=== PATIENT | female | born 1930 | race African-American/Black ===

== ENCOUNTER 2016-05-17 17:23 | Inpatient (IN) | payer OTHER, BC ==
[2016-05-17] MEDS ORDERED: ACETAMINOPHEN 325 MG TABLET (FP) PO ONE (17:34)
--- NOTE | 2016-05-17 17:45 | PDOC ---
History of Present Illness - General History Source: Patient Exam Limitations: No Limitations - History of Present Illness Initial Comments: 05/17/16 18:10 The patient is a 85 year old pleasant female with a significant past medical history of Dementia, Vertigo, AFIB, HTN, HLD, GERD, Multiple myeloma, and Diabetes Mellitus, who presents to the ED with flu-like symptoms. Patient states she was feeling normal until this morning when she developed chest congestion, cough, and a fever. Patient was febrile on interview with a recorded temp of 102. Patient states she has a sick roommate ( at [facility]) with similar symptoms. Patient denies chest pain, chills, nausea, vomiting, diarrhea, hematochezia, dysuria, frequency. <Kareem Murphy - Last Filed: 05/17/16 18:34> <Sandy Jeffery - Last Filed: 05/18/16 10:10> - General Chief Complaint: SIRS, Suspected/Possible Stated Complaint: FEVER Time Seen by Provider: 05/17/16 17:44 Past History <Kareem Murphy - Last Filed: 05/17/16 18:34> - Past Medical History Anemia: No Asthma: No Cancer: Yes (THYROID, MULTIPLE MYELOMA) Cardiac Disorders: Yes (afib/DVT) CVA: No COPD: No CHF: No Dementia: No Diabetes: Yes (NIDDM) GI Disorders: No Disorders: No HTN: Yes Hypercholesterolemia: Yes Liver Disease: No Suicide Attempt (Hx): No Seizures: No Thyroid Disease: Yes (thyroid cancer, thyroidectomy done in 1999) - Surgical History Abdominal Surgery: Yes (exploratory lap) - Immunization History Immunization Up to Date: No - Psycho/Social/Smoking Cessation Hx Anxiety: No Suicidal Ideation: No Smoking Status: No Smoking History: Never smoked Have you smoked in the past 12 months: No Number of Cigarettes Smoked Daily: 0 If you are a former smoker, when did you quit?: 40 years ago Information on smoking cessation initiated: No Hx Alcohol Use: No Drug/Substance Use Hx: No Substance Use Type: None Hx Substance Use Treatment: No <Sandy Jeffery - Last Filed: 05/18/16 10:10> - Past Medical History Allergies/Adverse Reactions: Allergies Allergy/AdvReac Type Severity Reaction Status Date / Time No Known Allergies Allergy Verified 05/17/16 17:27 Home Medications: Ambulatory Orders Docusate Sodium [Dok] 300 mg PO HS 05/17/16 Furosemide [Lasix] 20 mg PO ASDIR 05/17/16 Gabapentin [Neurontin] 300 mg PO DAILY 05/17/16 Lenalidomide [Revlimid] 15 mg PO HS 05/17/16 Levothyroxine [Synthroid -] 100 mcg PO DAILY 05/17/16 Loratadine [Claritin] 10 mg PO DAILY 05/17/16 Meclizine HCl 25 mg PO Q8H 05/17/16 Mecobal/Levomefolat Ca/B6 Phos [Foltanx Tablet] 1 each PO DAILY 05/17/16 Omeprazole 40 mg PO DAILY 05/17/16 Potassium Chloride [Klor-Con] 20 meq PO DAILY 05/17/16 Sennosides [Senna] 8.6 mg PO HS 05/17/16 Tramadol HCl [Ultram] 50 mg PO DAILY 05/17/16 Valacyclovir HCl [Valtrex -] 500 mg PO DAILY 05/17/16 Warfarin Sodium [Coumadin] 4 mg PO DAILY 05/17/16 Review of Systems - Review of Systems Able to Perform ROS?: Yes Comments:: 05/17/16 18:10 GENERAL/CONSTITUTIONAL: + fever. No chills. No weakness. HEAD, EYES, EARS, NOSE AND THROAT: No change in vision. No ear pain or discharge. No sore throat. CARDIOVASCULAR: No chest pain or shortness of breath. RESPIRATORY: + cough. + chest congestion. No hemoptysis. GASTROINTESTINAL: No nausea, vomiting, diarrhea or constipation. GENITOURINARY: No dysuria, frequency, or change in urination. MUSCULOSKELETAL: No joint or muscle swelling or pain. No neck or back pain. SKIN: No rash NEUROLOGIC: No headache, vertigo, loss of consciousness, or change in strength/ sensation. ENDOCRINE: No increased thirst. No abnormal weight change. HEMATOLOGIC/LYMPHATIC: No anemia, easy bleeding, or history of blood clots. ALLERGIC/IMMUNOLOGIC: No hives or skin allergy. <Kareem Murphy - Last Filed: 05/17/16 18:34> *Physical Exam - Vital Signs Last Vital Signs Temp Pulse Resp BP Pulse Ox 102.3 F H 72 18 121/48 100 05/17/16 17:28 05/17/16 17:28 05/17/16 17:28 05/17/16 17:28 05/17/16 17:28 - Physical Exam Comments: 05/17/16 18:35 GENERAL: Awake, alert, and fully oriented, in no acute distress HEAD: No signs of trauma EYES: PERRLA, EOMI, sclera anicteric, conjunctiva clear ENT: Auricles normal inspection, hearing grossly normal, nares patent, oropharynx clear without exudates. Moist mucosa NECK: Normal ROM, supple, no lymphadenopathy, JVD, or masses LUNGS: Breath sounds equal, clear to auscultation bilaterally. No wheezes, and no crackles HEART: Regular rate and rhythm, normal S1 and S2, no murmurs, rubs or gallops ABDOMEN: Soft, nontender, normoactive bowel sounds. No guarding, no rebound. No masses EXTREMITIES: Normal range of motion, no edema. No clubbing or cyanosis. No cords, erythema, or tenderness NEUROLOGICAL: Cranial nerves II through XII grossly intact. Normal speech, normal gait SKIN: Warm, Dry, normal turgor, no rashes or lesions noted. <Kareem Murphy - Last Filed: 05/17/16 18:34> - Vital Signs Last Vital Signs Temp Pulse Resp BP Pulse Ox 102.3 F H 72 18 121/48 100 05/17/16 17:28 05/17/16 17:28 05/17/16 17:28 05/17/16 17:28 05/17/16 17:28 <Sandy Jeffery - Last Filed: 05/18/16 10:10> Heart Score/ECG Review - ECG Impressions Comment:: EKG read 18:29- NSR 68 bpm, no acute ST/T changes <Sandy Jeffery - Last Filed: 05/18/16 10:10> ED Treatment Course - LABORATORY CBC & Chemistry Diagram: 05/17/16 18:10 05/17/16 18:10 - Medications Given in the ED: ED Medications Discontinued Medications Generic Name Dose Route Start Last Admin Trade Name Freq PRN Reason Stop Dose Admin Acetaminophen 975 mg 05/17/16 17:34 05/17/16 17:34 Tylenol - PO 05/17/16 17:35 975 mg NOW ONE Administration <Kareem Murphy - Last Filed: 05/17/16 18:34> - LABORATORY CBC & Chemistry Diagram: 05/17/16 21:57 05/17/16 18:10 - RADIOLOGY Radiology Studies Ordered: Category Date Time Status CHEST X-RAY PORTABLE* [RAD] Stat Radiology 05/17/16 17:44 Ordered - Medications Given in the ED: ED Medications Discontinued Medications Generic Name Dose Route Start Last Admin Trade Name Terence PRN Reason Stop Dose Admin Acetaminophen 975 mg 05/17/16 17:34 05/17/16 17:34 Tylenol - PO 05/17/16 17:35 975 mg NOW ONE Administration <Sandy Jeffery - Last Filed: 05/18/16 10:10> Medical Decision Making - Medical Decision Making 05/17/16 19:[address] Galvez. Awaiting UA, CXR, flu swab to further evaluate for high fever. <Sandy Jeffery - Last Filed: 05/18/16 10:10> *DC/Admit/Observation/Transfer - Attestations Scribe Attestion: 05/17/16 18:11 Documentation prepared by Kareem Murphy, acting as medical record retrieval specialist for Sandy Jeffery MD, . <Kareem Murphy - Last Filed: 05/17/16 18:34> <Sandy Jeffery - Last Filed: 05/18/16 10:10> Diagnosis at time of Disposition: PNA (pneumonia) - Discharge Dispostion Condition at time of disposition: Stable - Referrals
[2016-05-17 18:20] LABS: BASOPHIL 1.1 % (0-2.0); MCH 30.1 pg (25.7-33.7); MEAN CELL VOLUME 91.1 fl (80-96); NEUTROPHILS 77.6 % (42.8-82.8); PLATELET COUNT 192 K/MM3 (134-434); RDW 17.5 % (11.6-15.6); WHITE BLOOD COUNT 4.4 K/mm3 (4.0-10.0)
[2016-05-17 18:21] LABS: VENOUS BLOOD GAS HCO3 22.3 meq/L (22-29); VENOUS PH 7.43 (7.31-7.41)
[2016-05-17 18:37] LABS: INR 1.7 (0.82-1.09); PROTHROMBIN TIME (PATIENT) 18.9 SEC (9.98-11.88)
[2016-05-17 18:40] LABS: ACTIVATED PTT 36.2 SECONDS (26.9-34.4)
[2016-05-17 18:48] LABS: ALBUMIN 2.7 g/dl (3.4-5.0); ANION GAP 9 (8-16); BILIRUBIN,TOTAL 0.5 mg/dL (0.2-1.0); CALCIUM 7.4 mg/dL (8.5-10.1); CO2 23 mmol/L (21-32); CREATININE 0.9 mg/dL (0.55-1.02); GLUCOSE,RANDOM 82 mg/dL (74-106); SGPT/ALT 45 U/L (12-78); TOT PROT 5.4 g/dl (6.4-8.2)
[2016-05-17 18:50] LABS: ALK PHOS 56 U/L (45-117); TROPONIN I 0.03 ng/ml (0.00-0.05)
[2016-05-17 18:52] LABS: SGOT/AST 59 U/L (15-37)
--- NOTE | 2016-05-17 21:43 | PDOC ---
*Physical Exam - Vital Signs Last Vital Signs Temp Pulse Resp BP Pulse Ox 102.3 F H 72 18 121/48 100 05/17/16 17:28 05/17/16 17:28 05/17/16 17:28 05/17/16 17:28 05/17/16 17:28 - Physical Exam General Appearance: Yes: Nourished, Appropriately Dressed. No: Apparent Distress HEENT: positive: Normal ENT Inspection Neck: positive: Supple Respiratory/Chest: positive: Decreased Breath Sounds (RT LOWER LOBE). negative : Chest Tender ED Treatment Course - LABORATORY CBC & Chemistry Diagram: 05/17/16 18:10 05/17/16 18:10 - ADDITIONAL ORDERS Additional order review: Laboratory Results 05/17/16 05/17/16 05/17/16 18:15 18:10 18:10 INR PTT (Actin FS) VBG pH 7.43 H POC VBG pCO2 34.0 L POC VBG pO2 45.4 H Sodium Potassium Chloride Carbon Dioxide Anion Gap BUN Creatinine Creat Clearance w eGFR Random Glucose Lactic Acid 0.667 Calcium Total Bilirubin AST ALT Alkaline Phosphatase Creatine Kinase CK-MB (CK-2) Troponin I Total Protein Albumin Blood Type Cancelled Antibody Screen Cancelled Spec Expiration Date Cancelled 05/17/16 05/17/16 18:10 18:10 INR 1.70 H PTT (Actin FS) 36.2 H VBG pH POC VBG pCO2 POC VBG pO2 Sodium 137 Potassium 4.0 Chloride 105 Carbon Dioxide 23 D Anion Gap 9 BUN 11 D Creatinine 0.9 Creat Clearance w eGFR 59.80 Random Glucose 82 Lactic Acid Calcium 7.4 L Total Bilirubin 0.5 AST 59 H D ALT 45 D Alkaline Phosphatase 56 D Creatine Kinase 201 H D CK-MB (CK-2) < 1.000 Troponin I 0.03 Total Protein 5.4 L Albumin 2.7 L Blood Type Antibody Screen Spec Expiration Date 05/17/16 18:10 RBC 3.53 L MCV 91.1 MCHC 33.0 RDW 17.5 H D MPV 8.0 Neutrophils % 77.6 D Lymphocytes % 7.1 L D Monocytes % 14.2 H Eosinophils % 0.0 D Basophils % 1.1 - Medications Given in the ED: ED Medications Discontinued Medications Generic Name Dose Route Start Last Admin Trade Name Freq PRN Reason Stop Dose Admin Acetaminophen 975 mg 05/17/16 17:34 05/17/16 17:34 Tylenol - PO 05/17/16 17:35 975 mg NOW ONE Administration Progress Note - Progress Note Progress Note: MY READ: RLL PNA ADMIT MEDICINE (DR. SALINAS) *DC/Admit/Observation/Transfer Diagnosis at time of Disposition: Pneumonia Qualifiers: Pneumonia type: due to unspecified organism Laterality: right Lung location: lower lobe of lung Qualified Code(s): J18.9 - Pneumonia, unspecified organism - Discharge Dispostion Condition at time of disposition: Stable Admit: Yes - Referrals Referrals: Alejandro Grimm MD [Primary Care Provider] - - Patient Instructions - Post Discharge Activity
[2016-05-17] MEDS ORDERED: CEFTRIAXONE 1 GM in DEXTROSE 5%-WATER - 50 ML IVPB ONE (21:44)
[2016-05-17] MEDS ORDERED: AZITHROMYCIN IVPB 500 MG in DEXTROSE 5%-WATER - 250 ML IVPB ONE (21:44)
[2016-05-17] MEDS ORDERED: MECLIZINE HCL 25 MG TABLET (FP) PO PRN (22:02)
[2016-05-17] MEDS ORDERED: ALBUTEROL SO4 2.5/IPRATROPIUM 0.5 INH SOL 3 ML VIAL.NEB. NEB PRN (22:02)
[2016-05-17] MEDS ORDERED: cefTRIAXone SODIUM 1 GM VIAL ONE (22:08)
[2016-05-17] MEDS ORDERED: AZITHROMYCIN IVPB 250 ML IVPB ONE (23:12)
[2016-05-18] MEDS: valACYclovir HCL 500 MG TABLET (FP) PO SCH ×3 (00:33→12:30)
[2016-05-18] MEDS: GABAPENTIN 100 MG CAPSULE (FP) PO SCH ×4 (00:34→21:11)
[2016-05-18] MEDS ORDERED: GABAPENTIN 100 MG CAPSULE (FP) ONE (08:22)
[2016-05-18] MEDS ORDERED: LEVOTHYROXINE NA 25 MCG TABLET (FP) ONE (08:22)
[2016-05-18] MEDS: LEVOTHYROXINE NA 100 MCG TABLET (FP) PO SCH (08:25)
[2016-05-18 08:31] LABS: MCH 30.3 pg (25.7-33.7); MCHC 33.4 g/dl (32.0-36.0); MEAN CELL VOLUME 90.6 fl (80-96); MEAN PLT VOLUME 7.8 fl (7.5-11.1); PLATELET COUNT 182 K/MM3 (134-434); RDW 17.4 % (11.6-15.6); WHITE BLOOD COUNT 3.6 K/mm3 (4.0-10.0)
[2016-05-18] MEDS ORDERED: POTASSIUM CHLORIDE TABS 10 MEQ TABLET.ER (FP) ONE (08:49)
[2016-05-18] MEDS ORDERED: PANTOPRAZOLE 40 MG TABLET (FP) ONE (08:49)
[2016-05-18] MEDS ORDERED: FUROSEMIDE 40 MG TABLET (FP) ONE (08:49)
[2016-05-18] MEDS ORDERED: ACETAMINOPHEN 325 MG TABLET (FP) ONE (08:49)
[2016-05-18] MEDS ORDERED: LORATADINE 10 MG TABLET ONE (08:50)
[2016-05-18 08:56] LABS: ALBUMIN 2.5 g/dl (3.4-5.0); ALK PHOS 57 U/L (45-117); ANION GAP 9 (8-16); BILIRUBIN,TOTAL 0.5 mg/dL (0.2-1.0); CALCIUM 7.4 mg/dL (8.5-10.1); CO2 24 mmol/L (21-32); CREATININE 0.8 mg/dL (0.55-1.02); GLUCOSE,RANDOM 72 mg/dL (74-106); SGPT/ALT 46 U/L (12-78); TOT PROT 5.2 g/dl (6.4-8.2)
[2016-05-18 09:02] LABS: SGOT/AST 56 U/L (15-37)
[2016-05-18] MEDS: PANTOPRAZOLE 40 MG TABLET (FP) PO SCH (09:05)
[2016-05-18] MEDS: ACETAMINOPHEN 325 MG TABLET (FP) PO PRN ×2 (09:05→19:01)
[2016-05-18] MEDS: POTASSIUM CHLORIDE TABS 10 MEQ TABLET.ER (FP) PO SCH (09:05)
[2016-05-18] MEDS: LORATADINE 10 MG TABLET PO SCH (09:05)
[2016-05-18] MEDS: FUROSEMIDE 40 MG TABLET (FP) PO SCH (09:05)
--- NOTE | 2016-05-18 10:53 | PN ---
Progress Note (short form) - Note Progress Note: ID consult dictated imp/reccd fever in immunocompromised host RLL pneumonia multiple myeloma continue rocephin/zithromax f/u cultures legionella urinary antigen
--- NOTE | 2016-05-18 11:18 | HP ---
Admitting History and Physical - Primary Care Physician PCP: Tacos Rowe - Admission History of Present Illness: The patient is a 85 year old pleasant female with a significant past medical history of Dementia, Vertigo, AFIB, HTN, HLD, GERD, Multiple myeloma, and Diabetes Mellitus, who presents to the ED with flu-like symptoms. Patient states she was feeling normal until this morning when she developed chest congestion, cough, and a fever. Patient was febrile on interview with a recorded temp of 102. Patient states she has a sick roommate ( at [facility] for [facility]) with similar symptoms. Patient denies chest pain, chills, nausea, vomiting, diarrhea, hematochezia, dysuria, frequency. 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: Dementia, Vertigo Cardiovascular: Yes: AFIB, HTN, Hyperlipdemia Gastrointestinal: Yes: GERD Heme/Onc: Yes: Other (Multiple myeloma) Endocrine: Yes: Diabetes Mellitus - Past Surgical History Past Surgical History: Yes: None (no significant history) - Smoking History Smoking history: Never smoked Have you smoked in the past 12 months: No Aproximately how many cigarettes per day: 0 If you are a former smoker, when did you quit?: 40 years ago - Alcohol/Substance Use Hx Alcohol Use: No History of Substance Use: reports: None - Social History History of Recent Travel: No Home Medications - Allergies Allergies/Adverse Reactions: Allergies Allergy/AdvReac Type Severity Reaction Status Date / Time No Known Allergies Allergy Verified 05/17/16 17:27 - Home Medications Home Medications: Ambulatory Orders Docusate Sodium [Dok] 300 mg PO HS 05/17/16 Furosemide [Lasix] 20 mg PO ASDIR 05/17/16 Gabapentin [Neurontin] 300 mg PO DAILY 05/17/16 Lenalidomide [Revlimid] 15 mg PO HS 05/17/16 Levothyroxine [Synthroid -] 100 mcg PO DAILY 05/17/16 Loratadine [Claritin] 10 mg PO DAILY 05/17/16 Meclizine HCl 25 mg PO Q8H 05/17/16 Mecobal/Levomefolat Ca/B6 Phos [Foltanx Tablet] 1 each PO DAILY 05/17/16 Omeprazole 40 mg PO DAILY 05/17/16 Potassium Chloride [Klor-Con] 20 meq PO DAILY 05/17/16 Sennosides [Senna] 8.6 mg PO HS 05/17/16 Tramadol HCl [Ultram] 50 mg PO DAILY 05/17/16 Valacyclovir HCl [Valtrex -] 500 mg PO DAILY 05/17/16 Warfarin Sodium [Coumadin] 4 mg PO DAILY 05/17/16 Review of Systems - Review of Systems Constitutional: reports: Fever Physical Examination Vital Signs: Vital Signs Temperature 101.1 F H 05/18/16 06:00 Pulse Rate 76 05/18/16 06:00 Respiratory Rate 20 05/18/16 06:00 Blood Pressure 146/61 05/18/16 06:00 O2 Sat by Pulse Oximetry (%) 99 05/18/16 06:00 Constitutional: Yes: Calm Neck: Yes: Trachea Midline Cardiovascular: Yes: Regular Rate and Rhythm, S1, S2 Respiratory: Yes: Diminished (on right side) Imaging - Results Chest X-ray: Report Reviewed (right rhett infiltrate) Problem List - Problems (1) Fever Assessment/Plan: sec to pna iv abx ID eval Code(s): R50.9 - FEVER, UNSPECIFIED (2) PNA (pneumonia) Assessment/Plan: ID eval iv abx rocephin ,zithromax Code(s): J18.9 - PNEUMONIA, UNSPECIFIED ORGANISM Qualifiers: Pneumonia type: due to unspecified organism Laterality: right Lung location: lower lobe of lung Qualified Code(s): J18.9 - Pneumonia, unspecified organism (3) DM2 (diabetes mellitus, type 2) Assessment/Plan: check hga1c Code(s): E11.9 - TYPE 2 DIABETES MELLITUS WITHOUT COMPLICATIONS (4) Multiple myeloma Assessment/Plan: heme eval vatlrex revlamid Code(s): C90.00 - MULTIPLE MYELOMA NOT HAVING ACHIEVED REMISSION (5) Hypothyroidism Assessment/Plan: synthroid check tsh Code(s): E03.9 - HYPOTHYROIDISM, UNSPECIFIED (6) Afib Assessment/Plan: couamdin taken of AV sabina blocade by cardio Code(s): I48.91 - UNSPECIFIED ATRIAL FIBRILLATION (7) Vertigo Assessment/Plan: meclizine prn Code(s): R42 - DIZZINESS AND GIDDINESS
[2016-05-18] MEDS: cefTRIAXone 2 GM/100 ML BAG (PRE-DOCKED) IVPB SCH (12:20)
--- NOTE | 2016-05-18 12:52 | EKG ---
Test Reason : Blood Pressure : / mmHG Vent. Rate : 068 BPM Atrial Rate : 068 BPM P-R Int : 122 ms QRS Dur : 088 ms QT Int : 412 ms P-R-T Axes : 059 029 060 degrees QTc Int : 438 ms NORMAL SINUS RHYTHM POSSIBLE LEFT ATRIAL ENLARGEMENT BORDERLINE ECG WHEN COMPARED WITH ECG OF 06-FEB-2016 08:31, NO SIGNIFICANT CHANGE WAS FOUND Confirmed by FAN JARAMILLO MD ([id number]) on 05/18/2016 12:52:07 PM Referred By: Confirmed By:FAN JARAMILLO MD
[2016-05-18 13:44] LABS: URINE APPEARANCE CLEAR; URINE BILIRUBIN NEGATIVE (NEGATIVE); URINE COLOR STRAW; URINE GLUCOSE (UA) NEGATIVE (NEGATIVE); URINE KETONE NEGATIVE (NEGATIVE); URINE LEUK ESTERASE NEGATIVE (NEGATIVE); URINE NITRITE NEGATIVE (NEGATIVE); URINE PROTEIN NEGATIVE (NEGATIVE); URINE UROBILINOGEN NEGATIVE E.U./dl (0.2-1.0)
[2016-05-18 13:48] LABS: URINE BLOOD 1+ (NEGATIVE)
[2016-05-18 13:50] LABS: URINE MUCUS RARE; URINE RBC 1 /hpf (0-3); URINE WBC <1 /hpf (3-5)
--- NOTE | 2016-05-18 16:05 | CONSULT ---
Consult Consult Specialty:: PULM/CCM Referred by:: TIAGO Reason for Consultation:: PNA - History of Present Illness Chief Complaint: SOB / cough History of Present Illness: 85 F, Dementia, Vertigo, AFIB, HTN, HPL, GERD, Multiple Myeloma, (?) History of VTE, and DM. Admitted via the ER due to URI symptoms for about 1 day. Noted fever 102. Patient reports a possible sick contact from her roommate at the assisted living facility. No travel history. No hemoptysis. CT : right mid lung zone infiltrate/consolidation / small effusion. 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: Dementia, Vertigo Cardio/Vascular: Yes: AFIB, HTN, Hyperlipdemia Gastrointestinal: Yes: GERD Endocrine: Yes: Diabetes Mellitus - Past Surgical History Past Surgical History: Yes: None (no significant history) - Alcohol/Substance Use Hx Alcohol Use: No History of Substance Use: reports: None - Smoking History Smoking history: Never smoked Have you smoked in the past 12 months: No Aproximately how many cigarettes per day: 0 If you are a former smoker, when did you quit?: 40 years ago - Social History History of Recent Travel: No Home Medications - Allergies Allergies/Adverse Reactions: Allergies Allergy/AdvReac Type Severity Reaction Status Date / Time No Known Allergies Allergy Verified 05/17/16 17:27 - Home Medications Home Medications: Ambulatory Orders Docusate Sodium [Dok] 300 mg PO HS 05/17/16 Furosemide [Lasix] 20 mg PO ASDIR 05/17/16 Gabapentin [Neurontin] 300 mg PO DAILY 05/17/16 Lenalidomide [Revlimid] 15 mg PO HS 05/17/16 Levothyroxine [Synthroid -] 100 mcg PO DAILY 05/17/16 Loratadine [Claritin] 10 mg PO DAILY 05/17/16 Meclizine HCl 25 mg PO Q8H 05/17/16 Mecobal/Levomefolat Ca/B6 Phos [Foltanx Tablet] 1 each PO DAILY 05/17/16 Omeprazole 40 mg PO DAILY 05/17/16 Potassium Chloride [Klor-Con] 20 meq PO DAILY 05/17/16 Sennosides [Senna] 8.6 mg PO HS 05/17/16 Tramadol HCl [Ultram] 50 mg PO DAILY 05/17/16 Valacyclovir HCl [Valtrex -] 500 mg PO DAILY 05/17/16 Warfarin Sodium [Coumadin] 4 mg PO DAILY 05/17/16 Review of Systems - Review of Systems Constitutional: reports: Fever, Lethargy, Malaise, Weakness. denies: Chills, Night Sweats Eyes: reports: No Symptoms HENT: reports: No Symptoms Neck: reports: No Symptoms Cardiovascular: reports: Shortness of Breath. denies: Chest Pain, Edema, Palpitations Respiratory: reports: Cough. denies: Hemoptysis, SOB, Wheezing Gastrointestinal: reports: No Symptoms Genitourinary: reports: No Symptoms Breasts: reports: No Symptoms Reported Musculoskeletal: reports: No Symptoms Integumentary: reports: No Symptoms Neurological: reports: No Symptoms Endocrine: reports: No Symptoms Hematology/Lymphatic: reports: No Symptoms Psychiatric: reports: No Symptoms Physical Exam Vital Signs: Vital Signs Temperature 98.2 F 05/18/16 13:58 Pulse Rate 61 05/18/16 13:58 Respiratory Rate 19 05/18/16 13:58 Blood Pressure 125/60 05/18/16 13:58 O2 Sat by Pulse Oximetry (%) 96 05/18/16 13:58 Constitutional: Yes: No Distress, Calm Eyes: Yes: Conjunctiva Clear, EOM Intact HENT: Yes: Atraumatic, Normocephalic Neck: Yes: Supple, Trachea Midline Cardiovascular: Yes: Regular Rate and Rhythm Respiratory: Yes: Cough, On Nasal O2, Rhonchi, SOB. No: Stridor, Tachypnea, Wheezes Gastrointestinal: Yes: Normal Bowel Sounds, Soft ...Rectal Exam: Yes: Deferred Musculoskeletal: Yes: WNL Extremities: Yes: WNL Edema: No Peripheral Pulses WNL: Yes Integumentary: Yes: WNL Neurological: Yes: Alert, Oriented ...Motor Strength: WNL Psychiatric: Yes: WNL, Alert, Oriented Imaging - Results Chest X-ray: Report Reviewed, Image Reviewed Cat Scan: Report Reviewed, Image Reviewed Problem List - Problems (1) PNA (pneumonia) Code(s): J18.9 - PNEUMONIA, UNSPECIFIED ORGANISM Qualifiers: Pneumonia type: due to unspecified organism Laterality: right Lung location: lower lobe of lung Qualified Code(s): J18.9 - Pneumonia, unspecified organism (2) Afib Code(s): I48.91 - UNSPECIFIED ATRIAL FIBRILLATION (3) Atypical chest pain Code(s): R07.89 - OTHER CHEST PAIN (4) Fever Code(s): R50.9 - FEVER, UNSPECIFIED (5) HTN (hypertension) Code(s): I10 - ESSENTIAL (PRIMARY) HYPERTENSION (6) Hypothyroidism Code(s): E03.9 - HYPOTHYROIDISM, UNSPECIFIED (7) Multiple myeloma Code(s): C90.00 - MULTIPLE MYELOMA NOT HAVING ACHIEVED REMISSION (8) Thyroid cancer Code(s): C73 - MALIGNANT NEOPLASM OF THYROID GLAND (9) Vertigo Code(s): R42 - DIZZINESS AND GIDDINESS (10) Deep vein thrombosis Code(s): I82.409 - ACUTE EMBOLISM AND THOMBOS UNSP DEEP VN UNSP LOWER EXTREMITY Assessment/Plan PLAN: ABX per ID O2 as needed Check urine Check Sputum AC with coumadin Radiographic follow up as an outpatient suggested by Radiology Will follow Thank you. Dr Ohara
--- NOTE | 2016-05-18 17:32 | CONS ---
DATE OF CONSULTATION: DATE OF DICTATION: 05/18/2016 REQUESTING PHYSICIAN: Johann Wadsworth M.D. CONSULTING PHYSICIAN: Marya Ray M.D. HISTORY OF PRESENT ILLNESS: This is an 85-year-old woman with a history of multiple myeloma. She lives in an assisted living center at [facility]. She reports she was well until this morning, when she developed sudden onset of myalgia and low grade fever. This was yesterday. She saw the doctor at the alf. She had a temperature of 100.8. She went back. She ate lunch. She then went to bed, felt extremely weak and tired, very unlike herself, at which point she spoke to her daughter, they called an ambulance, and she came to the hospital. She was found to have a fever in the emergency room of 102. She has had a recent sick roommate who she says had a cough and sore throat. The patient had no chest pain. She has extreme malaise. She has had no chills, she has had no rigors, there has been no nausea, vomiting, diarrhea, dysuria, or urinary frequency. There has been no recent travel. PAST MEDICAL HISTORY: Notable for thyroid disease, multiple myeloma, atrial fibrillation with DVT in the past. She has a history of non-insulin dependent diabetes, hypertension, hypercholesterolemia. She has had thyroid cancer in the past. SURGICAL HISTORY: Notable for exploratory laparotomy and thyroidectomy done in 1999. FAMILY HISTORY: Noncontributory. ALLERGIES: No known drug allergies. MEDICATION: As an outpatient include Colace, Lasix, Neurontin, Revlimid which he is currently not taking. She takes it 21 days on and 7 days off and currently she is on the 7 days off. Levothyroxine, Claritin, meclizine, tablet, omeprazole, potassium, senna, Ultram, Valtrex, and Coumadin. SOCIAL HISTORY: She has been in the assisted living for the last month and enjoys staying there. 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 There is no history of any cigarette or substance use. REVIEW OF SYSTEMS: Notable for fever and generalized malaise. She is followed by Dr. Marie for her multiple myeloma, which she says was diagnosed about 4 years ago. PHYSICAL EXAMINATION: Vital signs: T-max 102.3, current temperature is 101.1, pulse 66, blood pressure 110/49, respiratory rate 19. She is saturating 96% on room air. HEENT: Normocephalic. Eyes are anicteric. Neck: Supple. Lungs: Diminished breath sounds in both bases. Heart: Regular rate and rhythm. Abdomen: Soft, nontender. She has no CVA or suprapubic tenderness. She has no rash. Extremities: Without edema. LABORATORY: White count is 3.6, hemoglobin 10.8, platelets 182, INR 1.7. BUN and creatinine are 11 and 0.9 with AST of 59. Cultures are pending and influenza screen is negative. Chest x-ray is read as an early right lower lobe infiltrate. IMPRESSION: In summary, this is an 85-year-old woman with fever in the setting of immunocompromised host secondary to myeloma who has evidence of a probable right lower lobe infiltrate. Would continue Rocephin and Zithromax at this time. Chest CT has been ordered and would follow up on chest CT for further evaluation. Will check legionella urinary antigen as well. Further recommendations to follow. Vickie [id number]
[2016-05-18 18:56] VITALS: BMI 18.0
[2016-05-18] MEDS: WARFARIN NA 3 MG TABLET PO SCH (19:01)
[2016-05-18] MEDS: AZITHROMYCIN IVPB 250 ML IVPB SCH (21:11)
--- NOTE | 2016-05-18 23:25 | CONSULT ---
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, Vertigo Cardio/Vascular: Yes: AFIB, HTN, Hyperlipdemia Gastrointestinal: Yes: GERD Endocrine: Yes: Diabetes Mellitus - Past Surgical History Past Surgical History: Yes: None (no significant history) - Alcohol/Substance Use Hx Alcohol Use: No History of Substance Use: reports: None - Smoking History Smoking history: Never smoked Have you smoked in the past 12 months: No Aproximately how many cigarettes per day: 0 If you are a former smoker, when did you quit?: 40 years ago - Social History History of Recent Travel: No Home Medications - Allergies Allergies/Adverse Reactions: Allergies Allergy/AdvReac Type Severity Reaction Status Date / Time No Known Allergies Allergy Verified 05/17/16 17:27 - Home Medications Home Medications: Ambulatory Orders Docusate Sodium [Dok] 300 mg PO HS 05/17/16 Furosemide [Lasix] 20 mg PO ASDIR 05/17/16 Gabapentin [Neurontin] 300 mg PO DAILY 05/17/16 Lenalidomide [Revlimid] 15 mg PO HS 05/17/16 Levothyroxine [Synthroid -] 100 mcg PO DAILY 05/17/16 Loratadine [Claritin] 10 mg PO DAILY 05/17/16 Meclizine HCl 25 mg PO Q8H 05/17/16 Mecobal/Levomefolat Ca/B6 Phos [Foltanx Tablet] 1 each PO DAILY 05/17/16 Omeprazole 40 mg PO DAILY 05/17/16 Potassium Chloride [Klor-Con] 20 meq PO DAILY 05/17/16 Sennosides [Senna] 8.6 mg PO HS 05/17/16 Tramadol HCl [Ultram] 50 mg PO DAILY 05/17/16 Valacyclovir HCl [Valtrex -] 500 mg PO DAILY 05/17/16 Warfarin Sodium [Coumadin] 4 mg PO DAILY 05/17/16 Review of Systems - Review of Systems Constitutional: reports: Lethargy Eyes: reports: No Symptoms HENT: reports: No Symptoms Neck: reports: No Symptoms Cardiovascular: reports: No Symptoms Respiratory: reports: Exercise Intolerance, SOB on Exertion Gastrointestinal: reports: No Symptoms Breasts: reports: No Symptoms Reported Musculoskeletal: reports: Muscle Weakness Neurological: reports: Dizziness, Incoordination Physical Exam Vital Signs: Vital Signs Temperature 99.5 F 05/18/16 20:36 Pulse Rate 70 05/18/16 20:36 Respiratory Rate 18 05/18/16 20:36 Blood Pressure 94/51 05/18/16 20:36 O2 Sat by Pulse Oximetry (%) 96 05/18/16 16:19 Constitutional: Yes: Calm Eyes: Yes: EOM Intact HENT: Yes: Normocephalic Neck: Yes: Trachea Midline Cardiovascular: Yes: Regular Rate and Rhythm Respiratory: Yes: CTA Bilaterally Gastrointestinal: Yes: Normal Bowel Sounds ...Rectal Exam: Yes: Deferred Renal/: Yes: WNL Breast(s): Yes: WNL Musculoskeletal: Yes: Joint Stiffness, Muscle Pain Extremities: Yes: WNL Edema: No Neurological: Yes: Alert, Oriented Problem List - Problems (1) Atypical chest pain Code(s): R07.89 - OTHER CHEST PAIN Assessment/Plan Current Active Problems hypothyroidism post tot thyroidectomy sp thyroid neoplasm\ multiple mylemo anemia PNA (pneumonia) (Acute) Abnormal Lab Results 05/17/16 05/17/16 05/17/16 08:30 18:10 21:57 WBC 3.6 L RBC 3.58 L RDW 17.4 H Chloride 108 H Random Glucose 72 L Calcium 7.4 L 7.4 L AST 56 H D 59 H Creatine Kinase 201 H D Total Protein 5.2 L 5.4 L Albumin 2.5 L 2.7 L Urine Blood 05/18/16 13:30 WBC RBC RDW Chloride Random Glucose Calcium AST Creatine Kinase Total Protein Albumin Urine Blood 1+ H Abnormal Lab Results 05/17/16 05/17/16 05/17/16 08:30 18:10 21:57 WBC 3.6 L RBC 3.58 L RDW 17.4 H Chloride 108 H Random Glucose 72 L Calcium 7.4 L 7.4 L AST 56 H D 59 H Creatine Kinase 201 H D Total Protein 5.2 L 5.4 L Albumin 2.5 L 2.7 L Urine Blood 05/18/16 13:30 WBC RBC RDW Chloride Random Glucose Calcium AST Creatine Kinase Total Protein Albumin Urine Blood 1+ H Laboratory Tests 02/07/16 09:50 TSH 2.08 D Free T4 1.18 Current Medications Generic Name Dose Route Start Last Admin Trade Name Freq PRN Reason Stop Dose Admin Acetaminophen 650 mg 05/17/16 22:02 05/18/16 19:01 Tylenol - PO 650 mg Q6H PRN Administration FEVER OR PAIN Albuterol/Ipratropium 1 amp 05/17/16 22:02 Duoneb - NEB Q6H PRN SHORTNESS OF BREATH Ceftriaxone Sodium 2 gm 05/18/16 11:00 05/18/16 12:20 Rocephin 2gm Ivpb (Pre-Docked) IVPB 2 gm DAILY G[facility] Administration Furosemide 40 mg 05/18/16 10:00 05/18/16 09:05 Lasix - PO 40 mg DAILY GIRISH Administration Gabapentin 100 mg 05/18/16 06:00 05/18/16 21:11 Neurontin - PO 100 mg TID GIRISH Administration Azithromycin 250 mls @ 250 mls/hr 05/18/16 20:00 05/18/16 21:11 Zithromax 500mg Ivpb (Pre-Docked) IVPB 250 mls/hr DAILY G[facility] Administration Levothyroxine Sodium 100 mcg 05/18/16 07:00 05/18/16 08:25 Synthroid - PO 100 mcg DAILY@0700 G[facility] Administration Loratadine 10 mg 05/18/16 10:00 05/18/16 09:05 Claritin - PO 10 mg DAILY G[facility] Administration Meclizine HCl 25 mg 05/17/16 22:02 Antivert - PO TID PRN VERTIGO Pantoprazole Sodium 40 mg 05/18/16 10:00 05/18/16 09:05 Protonix - PO 40 mg DAILY GIR[facility] Administration Potassium Chloride 10 meq 05/18/16 10:00 05/18/16 09:05 K-Dur - PO 10 meq DAILY GIRISH Administration Valacyclovir HCl 500 mg 05/17/16 23:00 05/18/16 12:30 Valtrex - PO 500 mg DAILY G[facility] Administration Warfarin Sodium 6 mg 05/18/16 18:00 05/18/16 19:01 Coumadin - PO 6 mg DAILY@1800 G[facility] Administration continue synthroid 100mcg daily will follow tsh and free t4
[2016-05-19] MEDS: ACETAMINOPHEN 325 MG TABLET (FP) PO PRN (06:23)
[2016-05-19] MEDS: GABAPENTIN 100 MG CAPSULE (FP) PO SCH ×3 (06:23→21:20)
[2016-05-19] MEDS: LEVOTHYROXINE NA 100 MCG TABLET (FP) PO SCH (06:23)
[2016-05-19 09:10] LABS: MCH 30.6 pg (25.7-33.7); MCHC 33.4 g/dl (32.0-36.0); MEAN CELL VOLUME 91.5 fl (80-96); PLATELET COUNT 205 K/MM3 (134-434); RDW 17.2 % (11.6-15.6); WHITE BLOOD COUNT 3.2 K/mm3 (4.0-10.0)
[2016-05-19 09:29] LABS: INR 1.72 (0.82-1.09); PROTHROMBIN TIME (PATIENT) 19.1 SEC (9.98-11.88)
[2016-05-19 09:43] LABS: ALBUMIN 2.8 g/dl (3.4-5.0); BILIRUBIN,TOTAL 0.4 mg/dL (0.2-1.0); CALCIUM 7.8 mg/dL (8.5-10.1); TOT PROT 5.9 g/dl (6.4-8.2)
--- NOTE | 2016-05-19 09:45 | PN ---
Progress Note, Physician - Current Medication List Current Medications: Active Medications Acetaminophen (Tylenol -) 650 mg PO Q6H PRN PRN Reason: FEVER OR PAIN Last Admin: 05/19/16 06:23 Dose: 650 mg Albuterol/Ipratropium (Duoneb -) 1 amp NEB Q6H PRN PRN Reason: SHORTNESS OF BREATH Ceftriaxone Sodium (Rocephin 2gm Ivpb (Pre-Docked)) 2 gm IVPB DAILY [facility] Last Admin: 05/18/16 12:20 Dose: 2 gm Furosemide (Lasix -) 40 mg PO DAILY [facility] Last Admin: 05/18/16 09:05 Dose: 40 mg Gabapentin (Neurontin -) 100 mg PO TID [facility] Last Admin: 05/19/16 06:23 Dose: 100 mg Azithromycin (Zithromax 500mg Ivpb (Pre-Docked)) 250 mls @ 250 mls/hr IVPB DAILY [facility] Last Admin: 05/18/16 21:11 Dose: 250 mls/hr Levothyroxine Sodium (Synthroid -) 100 mcg PO DAILY@0700 [facility] Last Admin: 05/19/16 06:23 Dose: 100 mcg Loratadine (Claritin -) 10 mg PO DAILY [facility] Last Admin: 05/18/16 09:05 Dose: 10 mg Meclizine HCl (Antivert -) 25 mg PO TID PRN PRN Reason: VERTIGO Pantoprazole Sodium (Protonix -) 40 mg PO DAILY [facility] Last Admin: 05/18/16 09:05 Dose: 40 mg Potassium Chloride (K-Dur -) 10 meq PO DAILY [facility] Last Admin: 05/18/16 09:05 Dose: 10 meq Valacyclovir HCl (Valtrex -) 500 mg PO DAILY [facility] Last Admin: 05/18/16 12:30 Dose: 500 mg Warfarin Sodium (Coumadin -) 6 mg PO DAILY@1800 [facility] Last Admin: 05/18/16 19:01 Dose: 6 mg - Objective Vital Signs: Vital Signs Temperature 100.5 F H 05/19/16 06:00 Pulse Rate 71 05/19/16 06:00 Respiratory Rate 18 05/19/16 06:00 Blood Pressure 120/59 05/19/16 06:00 O2 Sat by Pulse Oximetry (%) 96 05/18/16 22:00 Cardiovascular: Yes: Regular Rate and Rhythm Respiratory: Yes: Diminished, Rhonchi Gastrointestinal: Yes: Normal Bowel Sounds, Soft Labs: CBC, BMP 05/19/16 07:35 INR, PTT INR 1.72 (0.82-1.09) H 05/19/16 07:35 Assessment/Plan - Problems (1) Fever Assessment/Plan: 100.5 sec to pna iv abx ID eval Code(s): R50.9 - FEVER, UNSPECIFIED (2) PNA (pneumonia) Assessment/Plan: ID eval iv abx rocephin ,zithromax ct noted--soft tissue density--oncology Code(s): J18.9 - PNEUMONIA, UNSPECIFIED ORGANISM Qualifiers: Pneumonia type: due to unspecified organism Laterality: right Lung location: lower lobe of lung Qualified Code(s): J18.9 - Pneumonia, unspecified organism (3) DM2 (diabetes mellitus, type 2) Assessment/Plan: check hga1c Code(s): E11.9 - TYPE 2 DIABETES MELLITUS WITHOUT COMPLICATIONS (4) Multiple myeloma Assessment/Plan: heme eval vatlrex revlamid to start in am Code(s): C90.00 - MULTIPLE MYELOMA NOT HAVING ACHIEVED REMISSION (5) Hypothyroidism Assessment/Plan: synthroid check tsh Code(s): E03.9 - HYPOTHYROIDISM, UNSPECIFIED (6) Afib Assessment/Plan: couamdin taken of AV sabina blocade by cardio Code(s): I48.91 - UNSPECIFIED ATRIAL FIBRILLATION (7) Vertigo Assessment/Plan: meclizine prn Code(s): R42 - DIZZINESS AND GIDDINESS
[2016-05-19 09:53] LABS: CHOLESTEROL 240 mg/dL (50-200); LDL CHOLESTEROL (ONLY SJRH) 132 mg/dL (5-100)
[2016-05-19] MEDS ORDERED: PT OWN MED DRAWER 7, Y5N ONE (10:11)
[2016-05-19] MEDS: AZITHROMYCIN IVPB 250 ML IVPB SCH (10:22)
[2016-05-19] MEDS: PANTOPRAZOLE 40 MG TABLET (FP) PO SCH (10:23)
[2016-05-19] MEDS: valACYclovir HCL 500 MG TABLET (FP) PO SCH (10:23)
[2016-05-19] MEDS: FUROSEMIDE 40 MG TABLET (FP) PO SCH (10:23)
[2016-05-19] MEDS: cefTRIAXone 2 GM/100 ML BAG (PRE-DOCKED) IVPB SCH (10:23)
[2016-05-19] MEDS: LORATADINE 10 MG TABLET PO SCH (10:23)
[2016-05-19] MEDS: POTASSIUM CHLORIDE TABS 10 MEQ TABLET.ER (FP) PO SCH (10:23)
--- NOTE | 2016-05-19 14:31 | PN ---
Progress Note (short form) - Note Progress Note: feels better no complaints Vital Signs Period Temp Pulse Resp BP Sys/Ferrer Pulse Ox Last 24 Hr 98.2 F-100.5 F 60-74 18-19 94-124/48-62 96-96 cor-rrr lungs clear abd soft,nt ext no edema CBC, BMP 05/19/16 07:35 05/19/16 07:35 Microbiology 05/17/16 18:10 Blood - Peripheral Venous Blood Culture - Preliminary NO GROWTH OBTAINED AFTER 24 HOURS, INCUBATION TO CONTINUE FOR 4 DAYS. 05/17/16 18:10 Blood - Peripheral Venous Blood Culture - Preliminary NO GROWTH OBTAINED AFTER 24 HOURS, INCUBATION TO CONTINUE FOR 4 DAYS. 05/18/16 13:30 Urine For Antigen Detection Legionella Antigen - Final 05/18/16 13:30 Urine For Antigen Detection Streptococcus pneumoniae Antigen (M - Final 05/17/16 22:00 Nasopharyngeal Swab Influenza Types A,B Antigen (GAETANO) - Final 05/17/16 22:00 Nasopharyngeal Swab - Final chest ct- RML infil Current Medications Acetaminophen (Tylenol -) 650 mg PO Q6H PRN PRN Reason: FEVER OR PAIN Last Admin: 05/19/16 06:23 Dose: 650 mg Albuterol/Ipratropium (Duoneb -) 1 amp NEB Q6H PRN PRN Reason: SHORTNESS OF BREATH Ceftriaxone Sodium (Rocephin 2gm Ivpb (Pre-Docked)) 2 gm IVPB DAILY [facility] Last Admin: 05/19/16 10:23 Dose: 2 gm Furosemide (Lasix -) 40 mg PO DAILY [facility] Last Admin: 05/19/16 10:23 Dose: 40 mg Gabapentin (Neurontin -) 100 mg PO TID [facility] Last Admin: 05/19/16 06:23 Dose: 100 mg Azithromycin (Zithromax 500mg Ivpb (Pre-Docked)) 250 mls @ 250 mls/hr IVPB DAILY [facility] Last Admin: 05/19/16 10:22 Dose: 250 mls/hr Levothyroxine Sodium (Synthroid -) 100 mcg PO DAILY@0700 [facility] Last Admin: 05/19/16 06:23 Dose: 100 mcg Loratadine (Claritin -) 10 mg PO DAILY [facility] Last Admin: 05/19/16 10:23 Dose: 10 mg Meclizine HCl (Antivert -) 25 mg PO TID PRN PRN Reason: VERTIGO Pantoprazole Sodium (Protonix -) 40 mg PO DAILY [facility] Last Admin: 05/19/16 10:23 Dose: 40 mg Potassium Chloride (K-Dur -) 10 meq PO DAILY [facility] Last Admin: 05/19/16 10:23 Dose: 10 meq Valacyclovir HCl (Valtrex -) 500 mg PO DAILY [facility] Last Admin: 05/19/16 10:23 Dose: 500 mg Warfarin Sodium (Coumadin -) 6 mg PO DAILY@1800 [facility] Last Admin: 05/18/16 19:01 Dose: 6 mg a/p CAP-RML infiltrate temps trending down continue rocephin/zithromax Multiple Myelomma
--- NOTE | 2016-05-19 15:47 | PN ---
Progress Note (short form) - Note Progress Note: PULMONARY AWAKE/ALERT FEELS IMPROVED APPEARS CHRONICALLY ILL VSS/AFEBRILE ANICTERIC DIMINISHED BREATH SOUNDS B/L S1S2 IRREG BS+ SOFT NO EDEMA LABS/CT CHEST/MICRO/NOTES/MEDS REVIEWED (1) PNA (pneumonia) Code(s): J18.9 - PNEUMONIA, UNSPECIFIED ORGANISM Qualifiers: Pneumonia type: due to unspecified organism Laterality: right Lung location: lower lobe of lung Qualified Code(s): J18.9 - Pneumonia, unspecified organism (2) Afib Code(s): I48.91 - UNSPECIFIED ATRIAL FIBRILLATION (3) Atypical chest pain Code(s): R07.89 - OTHER CHEST PAIN (4) Fever Code(s): R50.9 - FEVER, UNSPECIFIED (5) HTN (hypertension) Code(s): I10 - ESSENTIAL (PRIMARY) HYPERTENSION (6) Hypothyroidism Code(s): E03.9 - HYPOTHYROIDISM, UNSPECIFIED (7) Multiple myeloma Code(s): C90.00 - MULTIPLE MYELOMA NOT HAVING ACHIEVED REMISSION (8) Thyroid cancer Code(s): C73 - MALIGNANT NEOPLASM OF THYROID GLAND (9) Vertigo Code(s): R42 - DIZZINESS AND GIDDINESS (10) Deep vein thrombosis Code(s): I82.409 - ACUTE EMBOLISM AND THOMBOS UNSP DEEP VN UNSP LOWER EXTREMITY Assessment/Plan PLAN: ABX per ID O2 as needed Cultures pending AC with coumadin Onco eval Will follow Deanna LASSITER MD
[2016-05-19 17:10] LABS: URINE APPEARANCE CLEAR; URINE BILIRUBIN NEGATIVE (NEGATIVE); URINE COLOR STRAW; URINE GLUCOSE (UA) NEGATIVE (NEGATIVE); URINE KETONE NEGATIVE (NEGATIVE); URINE LEUK ESTERASE NEGATIVE (NEGATIVE); URINE NITRITE NEGATIVE (NEGATIVE); URINE PROTEIN NEGATIVE (NEGATIVE); URINE UROBILINOGEN NEGATIVE E.U./dl (0.2-1.0)
[2016-05-19 17:12] LABS: URINE BLOOD 1+ (NEGATIVE)
--- NOTE | 2016-05-19 17:13 | CONSULT ---
Consult - text type - Consultation Consultation Note: 85 F, Dementia, Vertigo, AFIB, HTN, HPL, GERD, Multiple Myeloma, History of VTE , and DM. Admitted via the ER due to URI symptoms for about 1 day. Noted fever 102. Patient reports a possible sick contact from her roommate at the assisted living facility. CT : right mid lung zone infiltrate/consolidation / small effusion. 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, Vertigo Cardio/Vascular: Yes: AFIB, HTN, Hyperlipdemia Gastrointestinal: Yes: GERD Endocrine: Yes: Diabetes Mellitus - Past Surgical History Past Surgical History: Yes: None (no significant history) - Smoking History Smoking history: Never smoked Home Medications - Allergies Allergies/Adverse Reactions: Allergies Allergy/AdvReac Type Severity Reaction Status Date / Time No Known Allergies Allergy Verified 05/17/16 17:27 - Home Medications Home Medications: Ambulatory Orders Docusate Sodium [Dok] 300 mg PO HS 05/17/16 Furosemide [Lasix] 20 mg PO ASDIR 05/17/16 Gabapentin [Neurontin] 300 mg PO DAILY 05/17/16 Lenalidomide [Revlimid] 15 mg PO HS 05/17/16 Levothyroxine [Synthroid -] 100 mcg PO DAILY 05/17/16 Loratadine [Claritin] 10 mg PO DAILY 05/17/16 Meclizine HCl 25 mg PO Q8H 05/17/16 Mecobal/Levomefolat Ca/B6 Phos [Foltanx Tablet] 1 each PO DAILY 05/17/16 Omeprazole 40 mg PO DAILY 05/17/16 Potassium Chloride [Klor-Con] 20 meq PO DAILY 05/17/16 Sennosides [Senna] 8.6 mg PO HS 05/17/16 Tramadol HCl [Ultram] 50 mg PO DAILY 05/17/16 Valacyclovir HCl [Valtrex -] 500 mg PO DAILY 05/17/16 Warfarin Sodium [Coumadin] 4 mg PO DAILY 05/17/16 Physical Exam Vital Signs: Vital Signs Temperature 98.2 F 05/18/16 13:58 Pulse Rate 61 05/18/16 13:58 Respiratory Rate 19 05/18/16 13:58 Blood Pressure 125/60 05/18/16 13:58 O2 Sat by Pulse Oximetry (%) 96 01/24/17 13:58 HEENT: EBEN, EOM Intact Cor: RSR, No murmurs, No gallops Lungs: Clear to P&A Abd: Soft, Normal bowel sounds, No organomegaly Ext:No significant edema Skin: No rashes, Integument intact Abnormal Lab Results 05/19/16 05/19/16 05/19/16 07:35 07:35 07:35 WBC 3.2 L RDW 17.2 H INR 1.72 H Calcium 7.8 L AST 43 H D Total Protein 5.9 L Albumin 2.8 L Cholesterol Total LDL Cholesterol HDL Cholesterol Free T4 Urine Blood 05/19/16 05/19/16 05/19/16 07:35 07:35 16:30 WBC RDW INR Calcium AST Total Protein Albumin Cholesterol 240 H Total LDL Cholesterol 132 H HDL Cholesterol 107 H Free T4 1.70 H D Urine Blood 1+ H Imaging - Results Chest X-ray: Report Reviewed, Image Reviewed Cat Scan: Report Reviewed, Image Reviewed Problem List - Problems (1) PNA (pneumonia) Code(s): J18.9 - PNEUMONIA, UNSPECIFIED ORGANISM Qualifiers: Pneumonia type: due to unspecified organism Laterality: right Lung location: lower lobe of lung Qualified Code(s): J18.9 - Pneumonia, unspecified organism (2) Afib Code(s): I48.91 - UNSPECIFIED ATRIAL FIBRILLATION (3) Atypical chest pain Code(s): R07.89 - OTHER CHEST PAIN (4) Fever Code(s): R50.9 - FEVER, UNSPECIFIED (5) HTN (hypertension) Code(s): I10 - ESSENTIAL (PRIMARY) HYPERTENSION (6) Hypothyroidism Code(s): E03.9 - HYPOTHYROIDISM, UNSPECIFIED (7) Multiple myeloma Code(s): C90.00 - MULTIPLE MYELOMA NOT HAVING ACHIEVED REMISSION (8) Thyroid cancer Code(s): C73 - MALIGNANT NEOPLASM OF THYROID GLAND (9) Vertigo Code(s): R42 - DIZZINESS AND GIDDINESS (10) Deep vein thrombosis Code(s): I82.409 - ACUTE EMBOLISM AND THOMBOS UNSP DEEP VN UNSP LOWER EXTREMITY 85 y/o patient with htn,hypothyroid, vertigo, h/o DVT, myeloma on VRD comes in with RML infiltrate/pneumonia fever curve trending down on ceftriaxne/azithromax Patient to start new cycle of VRD tomorrow--will delay for now given pneumonia monitor
[2016-05-19 17:27] LABS: URINE MUCUS RARE; URINE RBC 1 /hpf (0-3); URINE WBC <1 /hpf (3-5)
[2016-05-19] MEDS: WARFARIN NA 3 MG TABLET PO SCH (17:27)
[2016-05-20] MEDS: LEVOTHYROXINE NA 100 MCG TABLET (FP) PO SCH (06:14)
[2016-05-20] MEDS: GABAPENTIN 100 MG CAPSULE (FP) PO SCH ×3 (06:14→21:41)
[2016-05-20 08:49] LABS: INR 1.87 (0.82-1.09); PROTHROMBIN TIME (PATIENT) 20.8 SEC (9.98-11.88)
[2016-05-20] MEDS ORDERED: PT OWN MED DRAWER 7, Y5N ONE (09:22)
[2016-05-20] MEDS: AZITHROMYCIN IVPB 250 ML IVPB SCH (09:32)
[2016-05-20] MEDS: valACYclovir HCL 500 MG TABLET (FP) PO SCH (09:32)
[2016-05-20] MEDS: POTASSIUM CHLORIDE TABS 10 MEQ TABLET.ER (FP) PO SCH (09:32)
[2016-05-20] MEDS: FUROSEMIDE 40 MG TABLET (FP) PO SCH (09:33)
[2016-05-20] MEDS: LORATADINE 10 MG TABLET PO SCH (09:33)
[2016-05-20] MEDS: PANTOPRAZOLE 40 MG TABLET (FP) PO SCH (09:33)
[2016-05-20] MEDS: cefTRIAXone 2 GM/100 ML BAG (PRE-DOCKED) IVPB SCH (09:33)
[2016-05-20] MEDS ORDERED: WARFARIN NA 3 MG TABLET PO SCH (10:47)
--- NOTE | 2016-05-20 10:47 | PN ---
Progress Note, Physician Chief Complaint: feeling better no fever - Current Medication List Current Medications: Active Medications Acetaminophen (Tylenol -) 650 mg PO Q6H PRN PRN Reason: FEVER OR PAIN Last Admin: 05/19/16 06:23 Dose: 650 mg Albuterol/Ipratropium (Duoneb -) 1 amp NEB Q6H PRN PRN Reason: SHORTNESS OF BREATH Ceftriaxone Sodium (Rocephin 2gm Ivpb (Pre-Docked)) 2 gm IVPB DAILY [facility] Last Admin: 05/20/16 09:33 Dose: 2 gm Furosemide (Lasix -) 40 mg PO DAILY [facility] Last Admin: 05/20/16 09:33 Dose: 40 mg Gabapentin (Neurontin -) 100 mg PO TID [facility] Last Admin: 05/20/16 06:14 Dose: 100 mg Azithromycin (Zithromax 500mg Ivpb (Pre-Docked)) 250 mls @ 250 mls/hr IVPB DAILY [facility] Last Admin: 05/20/16 09:32 Dose: 250 mls/hr Levothyroxine Sodium (Synthroid -) 100 mcg PO DAILY@0700 [facility] Last Admin: 05/20/16 06:14 Dose: 100 mcg Loratadine (Claritin -) 10 mg PO DAILY [facility] Last Admin: 05/20/16 09:33 Dose: 10 mg Meclizine HCl (Antivert -) 25 mg PO TID PRN PRN Reason: VERTIGO Pantoprazole Sodium (Protonix -) 40 mg PO DAILY [facility] Last Admin: 05/20/16 09:33 Dose: 40 mg Potassium Chloride (K-Dur -) 10 meq PO DAILY [facility] Last Admin: 05/20/16 09:32 Dose: 10 meq Valacyclovir HCl (Valtrex -) 500 mg PO DAILY [facility] Last Admin: 05/20/16 09:32 Dose: 500 mg Warfarin Sodium (Coumadin -) 6 mg PO DAILY@1800 [facility] Last Admin: 05/19/16 17:27 Dose: 6 mg - Objective Vital Signs: Vital Signs Temperature 97.8 F 05/20/16 06:00 Pulse Rate 63 05/20/16 06:00 Respiratory Rate 18 05/20/16 06:00 Blood Pressure 100/58 05/20/16 06:00 O2 Sat by Pulse Oximetry (%) 96 05/19/16 21:00 Constitutional: Yes: Calm Neck: Yes: Trachea Midline Cardiovascular: Yes: S1, S2 Respiratory: Yes: Diminished Gastrointestinal: Yes: Normal Bowel Sounds, Soft Edema: No Neurological: Yes: Alert, Oriented ([place]) Labs: CBC, BMP 05/19/16 07:35 05/19/16 07:35 INR, PTT INR 1.87 (0.82-1.09) H 05/20/16 07:00 Problem List - Problems (1) Fever Assessment/Plan: sec to pna iv abx ct chest noted onc on board Code(s): R50.9 - FEVER, UNSPECIFIED (2) PNA (pneumonia) Assessment/Plan: ID on board iv abx rocephin ,zithromax Code(s): J18.9 - PNEUMONIA, UNSPECIFIED ORGANISM Qualifiers: Pneumonia type: due to unspecified organism Laterality: right Lung location: lower lobe of lung Qualified Code(s): J18.9 - Pneumonia, unspecified organism (3) DM2 (diabetes mellitus, type 2) Assessment/Plan: check hga1c Code(s): E11.9 - TYPE 2 DIABETES MELLITUS WITHOUT COMPLICATIONS (4) Multiple myeloma Assessment/Plan: heme eval noted vatlrex revlamid on hold hold for now per onc Code(s): C90.00 - MULTIPLE MYELOMA NOT HAVING ACHIEVED REMISSION (5) Hypothyroidism Assessment/Plan: synthroid tsh ok Code(s): E03.9 - HYPOTHYROIDISM, UNSPECIFIED (6) Afib Assessment/Plan: couamdin dose increased taken of AV sabina blocade by cardio Code(s): I48.91 - UNSPECIFIED ATRIAL FIBRILLATION (7) Vertigo Assessment/Plan: meclizine prn Code(s): R42 - DIZZINESS AND GIDDINESS
--- NOTE | 2016-05-20 13:49 | PN ---
Progress Note (short form) - Note Progress Note: PULMONARY States breathing better today. No fevers or chills. Minimal cough with clear sputum. Last Vital Signs Temp Pulse Resp BP Pulse Ox 98.1 F 64 18 140/70 96 05/20/16 10:00 05/20/16 10:00 05/20/16 10:00 05/20/16 10:00 05/20/16 10:00 Gen: NAD at rest Heart: RRR Lung: decreased breath sounds at the bases Abd: soft, nontender Ext: no edema CBC, BMP 05/19/16 07:35 05/19/16 07:35 Active Medications Acetaminophen (Tylenol -) 650 mg PO Q6H PRN PRN Reason: FEVER OR PAIN Last Admin: 05/19/16 06:23 Dose: 650 mg Albuterol/Ipratropium (Duoneb -) 1 amp NEB Q6H PRN PRN Reason: SHORTNESS OF BREATH Ceftriaxone Sodium (Rocephin 2gm Ivpb (Pre-Docked)) 2 gm IVPB DAILY [facility] Last Admin: 05/20/16 09:33 Dose: 2 gm Furosemide (Lasix -) 40 mg PO DAILY [facility] Last Admin: 05/20/16 09:33 Dose: 40 mg Gabapentin (Neurontin -) 100 mg PO TID [facility] Last Admin: 05/20/16 06:14 Dose: 100 mg Azithromycin (Zithromax 500mg Ivpb (Pre-Docked)) 250 mls @ 250 mls/hr IVPB DAILY [facility] Last Admin: 05/20/16 09:32 Dose: 250 mls/hr Levothyroxine Sodium (Synthroid -) 100 mcg PO DAILY@0700 [facility] Last Admin: 05/20/16 06:14 Dose: 100 mcg Loratadine (Claritin -) 10 mg PO DAILY [facility] Last Admin: 05/20/16 09:33 Dose: 10 mg Meclizine HCl (Antivert -) 25 mg PO TID PRN PRN Reason: VERTIGO Pantoprazole Sodium (Protonix -) 40 mg PO DAILY [facility] Last Admin: 05/20/16 09:33 Dose: 40 mg Potassium Chloride (K-Dur -) 10 meq PO DAILY [facility] Last Admin: 05/20/16 09:32 Dose: 10 meq Valacyclovir HCl (Valtrex -) 500 mg PO DAILY [facility] Last Admin: 05/20/16 09:32 Dose: 500 mg Warfarin Sodium 5 mg/ Warfarin (Sodium 2 mg) 7 mg PO DAILY@1800 GIRISH A/P Pneumonia Multiple Myeloma Atrial Fibrillation DM Hypothyroidism - continue antibiotics - f/u cultures - O2 as needed - monitor WBC - DVT prophylaxis
--- NOTE | 2016-05-20 13:52 | PN ---
Progress Note, Physician Chief Complaint: ID Feeling better NO fever or couph Ceftriaxone and Azithromcyin - Current Medication List Current Medications: Active Medications Acetaminophen (Tylenol -) 650 mg PO Q6H PRN PRN Reason: FEVER OR PAIN Last Admin: 05/19/16 06:23 Dose: 650 mg Albuterol/Ipratropium (Duoneb -) 1 amp NEB Q6H PRN PRN Reason: SHORTNESS OF BREATH Ceftriaxone Sodium (Rocephin 2gm Ivpb (Pre-Docked)) 2 gm IVPB DAILY [facility] Last Admin: 05/20/16 09:33 Dose: 2 gm Furosemide (Lasix -) 40 mg PO DAILY [facility] Last Admin: 05/20/16 09:33 Dose: 40 mg Gabapentin (Neurontin -) 100 mg PO TID [facility] Last Admin: 05/20/16 06:14 Dose: 100 mg Azithromycin (Zithromax 500mg Ivpb (Pre-Docked)) 250 mls @ 250 mls/hr IVPB DAILY [facility] Last Admin: 05/20/16 09:32 Dose: 250 mls/hr Levothyroxine Sodium (Synthroid -) 100 mcg PO DAILY@0700 [facility] Last Admin: 05/20/16 06:14 Dose: 100 mcg Loratadine (Claritin -) 10 mg PO DAILY [facility] Last Admin: 05/20/16 09:33 Dose: 10 mg Meclizine HCl (Antivert -) 25 mg PO TID PRN PRN Reason: VERTIGO Pantoprazole Sodium (Protonix -) 40 mg PO DAILY [facility] Last Admin: 05/20/16 09:33 Dose: 40 mg Potassium Chloride (K-Dur -) 10 meq PO DAILY [facility] Last Admin: 05/20/16 09:32 Dose: 10 meq Valacyclovir HCl (Valtrex -) 500 mg PO DAILY [facility] Last Admin: 05/20/16 09:32 Dose: 500 mg Warfarin Sodium 5 mg/ Warfarin (Sodium 2 mg) 7 mg PO DAILY@1800 [facility] - Objective Vital Signs: Vital Signs Temperature 98.1 F 05/20/16 10:00 Pulse Rate 64 05/20/16 10:00 Respiratory Rate 18 05/20/16 10:00 Blood Pressure 140/70 05/20/16 10:00 O2 Sat by Pulse Oximetry (%) 96 05/20/16 10:00 Constitutional: Yes: Thin HENT: Yes: WNL, Atraumatic Neck: Yes: WNL, Supple Cardiovascular: Yes: Regular Rate and Rhythm, Murmur, S1, S2, Other (Systolic murum apex) Respiratory: Yes: WNL, Regular, CTA Bilaterally Gastrointestinal: Yes: WNL, Normal Bowel Sounds, Soft. No: Tenderness, Tenderness, Epigastrium Edema: No Labs: CBC, BMP 05/19/16 07:35 05/19/16 07:35 INR, PTT INR 1.87 (0.82-1.09) H 05/20/16 07:00 Assessment/Plan Microbiology 05/18/16 13:30 Urine For Antigen Detection Legionella Antigen - Final 05/18/16 13:30 Urine For Antigen Detection Streptococcus pneumoniae Antigen (M - Final 05/17/16 22:00 Nasopharyngeal Swab Influenza Types A,B Antigen (GAETANO) - Final 05/17/16 22:00 Nasopharyngeal Swab - Final 05/17/16 18:10 Blood - Peripheral Venous Blood Culture - Preliminary NO GROWTH OBTAINED AFTER 48 HOURS, INCUBATION TO CONTINUE FOR 3 DAYS. 05/17/16 18:10 Blood - Peripheral Venous Blood Culture - Preliminary NO GROWTH OBTAINED AFTER 48 HOURS, INCUBATION TO CONTINUE FOR 3 DAYS. Laboratory Tests 05/19/16 05/19/16 07:35 07:35 WBC 3.2 L Hgb 12.0 D Hct 35.8 Plt Count 205 BUN 9 Creatinine 1.0 Creat Clearance w eGFR 52.95 Assessment PNeumonia unspecified in a lady with multiple myeloma Plan Tomorrow can switch to oral levofloxacin Jaspal GUERRERO
--- NOTE | 2016-05-20 14:23 | EKG ---
Test Reason : Blood Pressure : / mmHG Vent. Rate : 069 BPM Atrial Rate : 069 BPM P-R Int : 120 ms QRS Dur : 082 ms QT Int : 414 ms P-R-T Axes : 024 018 053 degrees QTc Int : 443 ms POOR DATA QUALITY, INTERPRETATION MAY BE ADVERSELY AFFECTED NORMAL SINUS RHYTHM POSSIBLE LEFT ATRIAL ENLARGEMENT LEFT VENTRICULAR HYPERTROPHY ABNORMAL ECG WHEN COMPARED WITH ECG OF 17-MAY-2016 18:26, T WAVE INVERSION NO LONGER EVIDENT IN ANTERIOR LEADS Confirmed by PAMELA CASH MD ([id number]) on 05/20/2016 2:22:48 PM Referred By: Confirmed By:PAMELA CASH MD
[2016-05-20] MEDS ORDERED: LEVOFLOXACIN 250 MG IVPB 50 ML IVPB SCH (15:00)
[2016-05-20] MEDS ORDERED: WARFARIN NA 5 MG TABLET (UD) ONE (18:19)
[2016-05-20] MEDS ORDERED: WARFARIN NA 2 MG TABLET (UD) ONE (18:19)
[2016-05-20] MEDS: WARFARIN NA 5 MG, WARFARIN NA 2 MG PO SCH (18:24)
--- NOTE | 2016-05-20 21:08 | PN ---
Progress Note (short form) - Note Progress Note: PAtient seen and examined Denies any complaints Last Vital Signs Temp Pulse Resp BP Pulse Ox 99.1 F 61 20 115/68 96 05/20/16 18:00 05/20/16 18:00 05/20/16 18:00 05/20/16 18:00 05/20/16 18:00 HEENT: EBEN, EOM Intact Oropharynx: No thrush, No mucositis Cor: RSR, No murmurs, No gallops Lungs: Clear to P&A Abd: Soft, Normal bowel sounds, No organomegaly Ext:No significant edema Abnormal Lab Results 05/20/16 07:00 INR 1.87 H Current Medications Acetaminophen (Tylenol -) 650 mg PO Q6H PRN PRN Reason: FEVER OR PAIN Last Admin: 05/19/16 06:23 Dose: 650 mg Albuterol/Ipratropium (Duoneb -) 1 amp NEB Q6H PRN PRN Reason: SHORTNESS OF BREATH Furosemide (Lasix -) 40 mg PO DAILY [facility] Last Admin: 05/20/16 09:33 Dose: 40 mg Gabapentin (Neurontin -) 100 mg PO TID [facility] Last Admin: 05/20/16 14:12 Dose: 100 mg Levofloxacin (Levaquin 250 Mg Premixed Ivpb -) 50 mls @ 50 mls/hr IVPB DAILY [facility] Last Admin: 05/20/16 14:12 Dose: 50 mls/hr Levothyroxine Sodium (Synthroid -) 100 mcg PO DAILY@0700 [facility] Last Admin: 05/20/16 06:14 Dose: 100 mcg Loratadine (Claritin -) 10 mg PO DAILY [facility] Last Admin: 05/20/16 09:33 Dose: 10 mg Meclizine HCl (Antivert -) 25 mg PO TID PRN PRN Reason: VERTIGO Pantoprazole Sodium (Protonix -) 40 mg PO DAILY [facility] Last Admin: 05/20/16 09:33 Dose: 40 mg Potassium Chloride (K-Dur -) 10 meq PO DAILY [facility] Last Admin: 05/20/16 09:32 Dose: 10 meq Valacyclovir HCl (Valtrex -) 500 mg PO DAILY [facility] Last Admin: 05/20/16 09:32 Dose: 500 mg Warfarin Sodium 5 mg/ Warfarin (Sodium 2 mg) 7 mg PO DAILY@1800 [facility] Last Admin: 05/20/16 18:24 Dose: 7 mg A/P 85 y/o patient with htn,hypothyroid, vertigo, h/o DVT, myeloma on VRD comes in with RML infiltrate/pneumonia fever curve trending down on ceftriaxne/azithromax---switched to levaquin Patient on VRD tomorrow--will delay for now given pneumonia. reinitiate based on clinical course
[2016-05-21] MEDS: GABAPENTIN 100 MG CAPSULE (FP) PO SCH ×2 (06:06→13:57)
[2016-05-21] MEDS: LEVOTHYROXINE NA 100 MCG TABLET (FP) PO SCH (06:06)
[2016-05-21 08:29] LABS: INR 1.98 (0.82-1.09); PROTHROMBIN TIME (PATIENT) 22.1 SEC (9.98-11.88)
[2016-05-21 08:34] LABS: CALCIUM 7.6 mg/dL (8.5-10.1); CREATININE 0.8 mg/dL (0.55-1.02)
--- NOTE | 2016-05-21 08:45 | DS ---
Physical Examination Vital Signs: Vital Signs Temperature 98.3 F 05/21/16 06:00 Pulse Rate 66 05/21/16 06:00 Respiratory Rate 20 05/21/16 06:00 Blood Pressure 118/50 05/21/16 06:00 O2 Sat by Pulse Oximetry (%) 97 05/20/16 21:00 Findings/Remarks: feels better Cardiovascular: Yes: Regular Rate and Rhythm Respiratory: Yes: Regular, CTA Bilaterally Gastrointestinal: Yes: Normal Bowel Sounds, Soft Labs: CBC, BMP 05/19/16 07:35 05/21/16 06:00 Discharge Summary Reason For Visit: FEVER Current Active Problems PNA (pneumonia) (Acute) Hospital Course: The patient is a 85 year old pleasant female with a significant past medical history of Dementia, Vertigo, AFIB, HTN, HLD, GERD, Multiple myeloma, and Diabetes Mellitus, who presents to the ED with flu-like symptoms. Patient states she was feeling normal until this morning when she developed chest congestion, cough, and a fever. Patient was febrile on interview with a recorded temp of 102. Patient states she has a sick roommate ( at [facility]) with similar symptoms. Patient denies chest pain, chills, nausea, vomiting, diarrhea, hematochezia, dysuria, frequency. per patient her roomate has been coughing for last few days in ER found to have temp 102 low wbc count History Source: Patient - Past Medical History [employer]: Yes: Dementia, Vertigo Cardiovascular: Yes: AFIB, HTN, Hyperlipdemia Gastrointestinal: Yes: GERD Heme/Onc: Yes: Other (Multiple myeloma) Endocrine: Yes: Diabetes Mellitus - Problems (1) Fever Assessment/Plan: resolved sec to pna iv abx to po ct chest noted onc on board Code(s): R50.9 - FEVER, UNSPECIFIED (2) PNA (pneumonia) Assessment/Plan: ID on board iv abx to po levaquin Code(s): J18.9 - PNEUMONIA, UNSPECIFIED ORGANISM Qualifiers: Pneumonia type: due to unspecified organism Laterality: right Lung location: lower lobe of lung Qualified Code(s): J18.9 - Pneumonia, unspecified organism (3) DM2 (diabetes mellitus, type 2) Assessment/Plan: check hga1c Code(s): E11.9 - TYPE 2 DIABETES MELLITUS WITHOUT COMPLICATIONS (4) Multiple myeloma Assessment/Plan: heme eval noted vatlrex revlamid on hold hold for now per onc Code(s): C90.00 - MULTIPLE MYELOMA NOT HAVING ACHIEVED REMISSION (5) Hypothyroidism Assessment/Plan: synthroid tsh ok Code(s): E03.9 - HYPOTHYROIDISM, UNSPECIFIED (6) Afib Assessment/Plan: couamdin dose increased taken of AV sabina blocade by cardio Code(s): I48.91 - UNSPECIFIED ATRIAL FIBRILLATION (7) Vertigo Assessment/Plan: meclizine prn Code(s): R42 - DIZZINESS AND GIDDINESS Condition: Stable - Instructions Diet, Activity, Other Instructions: INR WEEKLY Referrals: Alejandro Grimm MD [Primary Care Provider] - Disposition: HOME - Home Medications Comprehensive Discharge Medication List: Ambulatory Orders Docusate Sodium [Dok] 300 mg PO HS 05/17/16 Gabapentin [Neurontin] 300 mg PO DAILY 05/17/16 Lenalidomide [Revlimid] 15 mg PO HS 05/17/16 Levothyroxine [Synthroid -] 100 mcg PO DAILY 05/17/16 Loratadine [Claritin] 10 mg PO DAILY 05/17/16 Meclizine HCl 25 mg PO Q8H 05/17/16 Mecobal/Levomefolat Ca/B6 Phos [Foltanx Tablet] 1 each PO DAILY 05/17/16 Omeprazole 40 mg PO DAILY 05/17/16 Potassium Chloride [Klor-Con] 20 meq PO DAILY 05/17/16 Sennosides [Senna] 8.6 mg PO HS 05/17/16 Tramadol HCl [Ultram] 50 mg PO DAILY 05/17/16 Valacyclovir HCl [Valtrex -] 500 mg PO DAILY 05/17/16 Furosemide [Lasix -] 40 mg PO DAILY tablet 05/21/16 Levofloxacin [Levaquin -] 500 mg PO DAILY #3 tablet 05/21/16 Warfarin Na [Coumadin -] 6 mg PO DAILY@1800 tablet 05/21/16
[2016-05-21] MEDS ORDERED: LEVOFLOXACIN 500 MG TABLET (FP) PO SCH (10:00)
[2016-05-21] MEDS: FUROSEMIDE 40 MG TABLET (FP) PO SCH (10:39)
[2016-05-21] MEDS: valACYclovir HCL 500 MG TABLET (FP) PO SCH (10:39)
[2016-05-21] MEDS: PANTOPRAZOLE 40 MG TABLET (FP) PO SCH (10:39)
[2016-05-21] MEDS: LORATADINE 10 MG TABLET PO SCH (10:39)
[2016-05-21] MEDS: POTASSIUM CHLORIDE TABS 10 MEQ TABLET.ER (FP) PO SCH (10:40)
[2016-05-21 14:17] VITALS: BP 104/55; PULSE 63; TEMP 98.7
--- NOTE | 2016-05-21 16:46 | PN ---
Progress Note (short form) - Note Progress Note: PULMONARY AWAKE/ALERT FEELS IMPROVED APPEARS CHRONICALLY ILL VSS/AFEBRILE ANICTERIC DIMINISHED BREATH SOUNDS B/L S1S2 IRREG BS+ SOFT NO EDEMA LABS/CT CHEST/MICRO/NOTES/MEDS REVIEWED (1) PNA (pneumonia) Code(s): J18.9 - PNEUMONIA, UNSPECIFIED ORGANISM Qualifiers: Pneumonia type: due to unspecified organism Laterality: right Lung location: lower lobe of lung Qualified Code(s): J18.9 - Pneumonia, unspecified organism (2) Afib Code(s): I48.91 - UNSPECIFIED ATRIAL FIBRILLATION (3) Atypical chest pain Code(s): R07.89 - OTHER CHEST PAIN (4) Fever Code(s): R50.9 - FEVER, UNSPECIFIED (5) HTN (hypertension) Code(s): I10 - ESSENTIAL (PRIMARY) HYPERTENSION (6) Hypothyroidism Code(s): E03.9 - HYPOTHYROIDISM, UNSPECIFIED (7) Multiple myeloma Code(s): C90.00 - MULTIPLE MYELOMA NOT HAVING ACHIEVED REMISSION (8) Thyroid cancer Code(s): C73 - MALIGNANT NEOPLASM OF THYROID GLAND (9) Vertigo Code(s): R42 - DIZZINESS AND GIDDINESS (10) Deep vein thrombosis Code(s): I82.409 - ACUTE EMBOLISM AND THOMBOS UNSP DEEP VN UNSP LOWER EXTREMITY Assessment/Plan PLAN: ORAL ABX per ID O2 as needed AC with coumadin (MONITOR INR WHILE ON LEVAQUIN) Onco eval FOR DISCHARGE TO SNF TODAY Deanna LASSITER MD
[2016-05-21] MEDS: WARFARIN NA 5 MG, WARFARIN NA 2 MG PO SCH (17:19)
--- NOTE | 2016-05-21 23:47 | PN ---
Progress Note, Physician Chief Complaint: weak,yet improved appetite History of Present Illness: improving less coughing and afebrile,denies cp or dizzyness - Objective Vital Signs: Vital Signs Temperature 98.7 F 05/21/16 14:12 Pulse Rate 63 05/21/16 14:12 Respiratory Rate 16 05/21/16 14:12 Blood Pressure 104/55 05/21/16 14:12 O2 Sat by Pulse Oximetry (%) 97 05/21/16 09:00 Constitutional: Yes: Well Nourished Eyes: Yes: EOM Intact HENT: Yes: Normocephalic Neck: Yes: Trachea Midline Cardiovascular: Yes: Pulse Irregular Respiratory: Yes: CTA Bilaterally Gastrointestinal: Yes: Normal Bowel Sounds ...Rectal Exam: Yes: Deferred Genitourinary: Yes: WNL Breast(s): Yes: WNL Musculoskeletal: Yes: WNL Extremities: Yes: WNL Edema: No Peripheral Pulses WNL: Yes Integumentary: Yes: WNL Neurological: Yes: Alert, Oriented Labs: CBC, BMP 05/19/16 07:35 05/21/16 06:00 INR, PTT INR 1.98 (0.82-1.09) H 05/21/16 06:00 Problem List - Problems (1) Atypical chest pain Code(s): R07.89 - OTHER CHEST PAIN (2) Afib Code(s): I48.91 - UNSPECIFIED ATRIAL FIBRILLATION (3) Costochondritis Code(s): M94.0 - CHONDROCOSTAL JUNCTION SYNDROME [TIETZE] Assessment/Plan hypothyroidism sp thyroidectomy\ ho/thyroid neoplasm pneumonia improving afib controlled Abnormal Lab Results 05/21/16 05/21/16 06:00 06:00 INR 1.98 H Potassium 3.4 L Chloride 108 H Calcium 7.6 L Abnormal Lab Results Laboratory Tests 05/19/16 05/19/16 07:35 07:35 TSH 0.47 D Free T4 1.70 H D plan: continue synthroid 100mcg euthyroid clinically
== END 2016-05-21 17:51 | disposition home or self-care (01) | DRG 194 ==
LOC: JER 17:23 → JERBED 21:57 → J5S 05-18 17:30 → J7W 05-20 16:46
PROVIDERS: ADMIT Family Medicine; ATTEND Family Medicine
DX: J18.9 Pneumonia, unspecified organism (principal); C90.00 Multiple myeloma not having achieved remission; J90 Pleural effusion, not elsewhere classified; I48.91 Unspecified atrial fibrillation; I10 Essential (primary) hypertension; E78.5 Hyperlipidemia, unspecified; K21.9 Gastro-esophageal reflux disease without esophagitis; E11.9 Type 2 diabetes mellitus without complications; F03.90 Unspecified dementia, unspecified severity, without behavioral disturbance, psychotic disturbance, mood disturbance, and anxiety; Z85.850 Personal history of malignant neoplasm of thyroid; E03.9 Hypothyroidism, unspecified; R42 Dizziness and giddiness; Z86.718 Personal history of other venous thrombosis and embolism
CPT/HCPCS: 36415; 71010-TC; 71250-TC; 80048; 80053; 80061; 81003; 81015; 82550; 82553; 82803; 83036; 83605; 83721; 84439; 84443; 84484; 85025; 85027; 85610; 85730; 87040; 87081; 87804; 87899; 93005; 93010; 93306-TC; 99285-25

== ENCOUNTER 2016-06-16 06:34 | Day surgery (SDC) | payer OTHER, BC ==
[2016-06-16] MEDS ORDERED: BORTEZOMIB (VELCADE) 2.5 MG/ML SUB-Q INJECTION SQ ONE (08:00)
[2016-06-16 09:04] LABS: BASOPHIL 1.4 % (0-2.0); MCH 29.8 pg (25.7-33.7); MCHC 32.8 g/dl (32.0-36.0); MEAN CELL VOLUME 90.7 fl (80-96); MEAN PLT VOLUME 7.9 fl (7.5-11.1); NEUTROPHILS 63.8 % (42.8-82.8); PLATELET COUNT 181 K/MM3 (134-434); RDW 19.5 % (11.6-15.6); WHITE BLOOD COUNT 3.5 K/mm3 (4.0-10.0)
[2016-06-16 10:00] VITALS: BP 138/75; PULSE 75; TEMP 98.2
[2016-06-16 17:29] VITALS: BMI 22.6
== END 2016-06-16 13:00 | disposition home or self-care (01) ==
LOC: JONCCHEMO 06:34 → J7W 09:55 → JONCCHEMO 13:00
PROVIDERS: ATTEND Internal Medicine Hematology & Oncology
DX: Z51.11 Encounter for antineoplastic chemotherapy (principal); C90.00 Multiple myeloma not having achieved remission; E11.9 Type 2 diabetes mellitus without complications; E03.9 Hypothyroidism, unspecified; I82.409 Acute embolism and thrombosis of unspecified deep veins of unspecified lower extremity; G62.9 Polyneuropathy, unspecified
CPT/HCPCS: 96401; J9041; 36415; 85025

== ENCOUNTER 2016-06-23 10:05 | Day surgery (SDC) | payer OTHER, BC ==
[2016-06-23 10:22] LABS: MCH 29.9 pg (25.7-33.7); MCHC 33.2 g/dl (32.0-36.0); MEAN CELL VOLUME 90.1 fl (80-96); MEAN PLT VOLUME 7.9 fl (7.5-11.1); RDW 19.4 % (11.6-15.6); WHITE BLOOD COUNT 3.5 K/mm3 (4.0-10.0)
[2016-06-23] MEDS ORDERED: BORTEZOMIB (VELCADE) 2.5 MG/ML SUB-Q INJECTION SQ ONE ×2 (11:00→11:15)
[2016-06-23 11:19] LABS: PLATELET ESTIMATE ADEQUATE (NORMAL)
[2016-06-23 12:32] LABS: MCH 29.6 pg (25.7-33.7); MCHC 32.8 g/dl (32.0-36.0); MEAN CELL VOLUME 90.4 fl (80-96); MEAN PLT VOLUME 7.7 fl (7.5-11.1); PLATELET COUNT 201 K/MM3 (134-434); RDW 19.3 % (11.6-15.6)
[2016-06-23 12:56] LABS: ANION GAP 9 (8-16); BILIRUBIN,TOTAL 0.5 mg/dL (0.2-1.0); CALCIUM 8.6 mg/dL (8.5-10.1); CO2 28 mmol/L (21-32); CREATININE 0.8 mg/dL (0.55-1.02); GLUCOSE,RANDOM 63 mg/dL (74-106); MAGNESIUM 2.2 mg/dL (1.8-2.4); SGPT/ALT 20 U/L (12-78); TOT PROT 5.8 g/dl (6.4-8.2)
[2016-06-23 12:57] LABS: ALK PHOS 67 U/L (45-117)
[2016-06-23 13:01] LABS: BILIRUBIN,DIRECT < 0.1 mg/dL (0.0-0.2)
[2016-06-23 13:02] LABS: SGOT/AST 35 U/L (15-37)
[2016-06-23 13:04] LABS: INR 1.19 (0.82-1.09); PROTHROMBIN TIME (PATIENT) 13.1 SEC (9.98-11.88)
[2016-06-23 13:09] LABS: PLATELET ESTIMATE ADEQUATE (NORMAL)
[2016-06-23 16:39] VITALS: BP 132/64; PULSE 74; TEMP 98.2
== END 2016-06-23 13:30 | disposition home or self-care (01) ==
LOC: JONCCHEMO 10:05 → J7W 11:45 → JONCCHEMO 13:30
PROVIDERS: ATTEND Internal Medicine Hematology & Oncology
DX: Z51.11 Encounter for antineoplastic chemotherapy (principal); C90.00 Multiple myeloma not having achieved remission; E03.9 Hypothyroidism, unspecified; E11.9 Type 2 diabetes mellitus without complications
CPT/HCPCS: 96401; J9041; 36415; 80048; 80076; 83735; 85025; 85610

== ENCOUNTER 2016-07-14 07:06 | Day surgery (SDC) | payer OTHER, BC, MEDICARE ==
[2016-07-14] MEDS ORDERED: BORTEZOMIB (VELCADE) 2.5 MG/ML SUB-Q INJECTION SQ ONE (08:00)
[2016-07-14 09:02] LABS: EOSINOPHIL 2.4 % (0-4.5); MCH 29.1 pg (25.7-33.7); MCHC 32.9 g/dl (32.0-36.0); MEAN CELL VOLUME 88.3 fl (80-96); MEAN PLT VOLUME 7.7 fl (7.5-11.1); NEUTROPHILS 65.9 % (42.8-82.8); PLATELET COUNT 212 K/MM3 (134-434); RDW 20.2 % (11.6-15.6); WHITE BLOOD COUNT 4.7 K/mm3 (4.0-10.0)
[2016-07-14 11:23] LABS: CALCIUM 8.5 mg/dL (8.5-10.1); CREATININE 0.8 mg/dL (0.55-1.02); MAGNESIUM 2.1 mg/dL (1.8-2.4)
[2016-07-14 11:58] LABS: ALBUMIN 3.3 g/dl (3.4-5.0); BILIRUBIN,DIRECT 0.3 mg/dL (0.0-0.2); BILIRUBIN,TOTAL 0.7 mg/dL (0.2-1.0)
[2016-07-14 13:09] LABS: C-REACTIVE PROTEIN 3.8 MG/DL (0.00-0.3)
[2016-07-14 18:42] VITALS: BP 135/80; PULSE 72; TEMP 98.2
[2016-07-16 00:09] LABS: A/G RATIO 1.1 (0.7-1.7); ALBUMIN 3.1 g/dL (2.9-4.4); GLOBULIN, TOTAL 2.7 g/dL (2.2-3.9); IGG IMMUNOGLOBULIN 570 mg/dL (700-1600); IGM IMMUNOGLOBULIN 18 mg/dL (26-217); M-SPIKE Not Observed g/dL (Not Observed); TOTAL PROTEIN 5.8 g/dL (6.0-8.5)
[2016-07-16 10:13] LABS: FREE LAMB CHN UR 2.09 mg/L (0.24-6.66)
== END 2016-07-14 10:30 | disposition home or self-care (01) ==
LOC: JONCCHEMO 07:06 → J7W 09:52 → JONCCHEMO 10:30
PROVIDERS: ATTEND Internal Medicine Hematology & Oncology
DX: Z51.11 Encounter for antineoplastic chemotherapy (principal); C90.00 Multiple myeloma not having achieved remission
CPT/HCPCS: 96401; J9041; 36415; 80048; 80076; 82784; 83615; 83735; 83883; 84155; 84165; 84550; 85025; 85651; 86140

== ENCOUNTER 2016-07-28 07:04 | Day surgery (SDC) | payer OTHER, BC, MEDICARE ==
[2016-07-28] MEDS ORDERED: BORTEZOMIB (VELCADE) 2.5 MG/ML SUB-Q INJECTION SQ ONE (08:00)
[2016-07-28] MEDS ORDERED: ZOLEDRONIC ACID 4 MG in SODIUM CHLORIDE 100 ML IVPB ONE (08:00)
[2016-07-28 09:08] LABS: MCH 29.4 pg (25.7-33.7); MCHC 32.9 g/dl (32.0-36.0); MEAN CELL VOLUME 89.2 fl (80-96); MEAN PLT VOLUME 7.5 fl (7.5-11.1); PLATELET COUNT 218 K/MM3 (134-434); RDW 20.4 % (11.6-15.6); WHITE BLOOD COUNT 3.5 K/mm3 (4.0-10.0)
[2016-07-28 11:21] LABS: ALBUMIN 3.3 g/dl (3.4-5.0); BILIRUBIN,DIRECT 0.1 mg/dL (0.0-0.2); BILIRUBIN,TOTAL 0.4 mg/dL (0.2-1.0); CALCIUM 8.7 mg/dL (8.5-10.1); CREATININE 0.9 mg/dL (0.55-1.02)
[2016-07-28 11:22] LABS: INR 1.36 (0.82-1.09); PROTHROMBIN TIME (PATIENT) 15.1 SEC (9.98-11.88); TOT PROT 6.5 g/dl (6.4-8.2)
[2016-07-28 11:37] LABS: PLATELET ESTIMATE ADEQUATE (NORMAL)
[2016-07-28 16:03] VITALS: BP 154/73; PULSE 67; TEMP 97.5
== END 2016-07-28 13:15 | disposition home or self-care (01) ==
LOC: JONCCHEMO 07:04 → J7W 10:13 → JONCCHEMO 13:15
PROVIDERS: ATTEND Internal Medicine Hematology & Oncology
PROC: 3E01305 Introduction of Other Antineoplastic into Subcutaneous Tissue, Percutaneous Approach (ICD-10-PCS; principal; 2016-07-28)
PROC: 3E033GC Introduction of Other Therapeutic Substance into Peripheral Vein, Percutaneous Approach (ICD-10-PCS; 2016-07-28)
DX: Z51.11 Encounter for antineoplastic chemotherapy (principal); C90.00 Multiple myeloma not having achieved remission
CPT/HCPCS: 96365; 96401; J3489; J9041; 36415; 80048; 80076; 85025; 85610

== ENCOUNTER 2016-08-12 07:11 | Day surgery (SDC) | payer OTHER, BC, MEDICARE ==
[2016-08-12] MEDS ORDERED: BORTEZOMIB (VELCADE) 2.5 MG/ML SUB-Q INJECTION SQ ONE (08:00)
[2016-08-12 10:49] LABS: MEAN CELL VOLUME 88.9 fl (80-96); WHITE BLOOD COUNT 5.7 K/mm3 (4.0-10.0)
[2016-08-12 10:50] LABS: MCH 29.5 pg (25.7-33.7)
[2016-08-12 10:51] LABS: MCHC 33.1 g/dl (32.0-36.0); MEAN PLT VOLUME 7.9 fl (7.5-11.1); RDW 20.3 % (11.6-15.6)
[2016-08-12 12:41] LABS: PLATELET COUNT 221 K/MM3 (134-434); PLATELET ESTIMATE ADEQUATE (NORMAL)
[2016-08-12 12:42] LABS: ANISOCYTOSIS 1+; MICROCYTOSIS FEW
[2016-08-12 18:06] VITALS: BP 128/72; PULSE 64; TEMP 98.3
== END 2016-08-12 18:51 | disposition home or self-care (01) ==
LOC: JONCCHEMO 07:11 → J7W 12:23 → JONCCHEMO 18:51
PROVIDERS: ATTEND Internal Medicine Hematology & Oncology
DX: Z51.11 Encounter for antineoplastic chemotherapy (principal); C90.00 Multiple myeloma not having achieved remission
CPT/HCPCS: 96401; J9041; 36415; 85025

== ENCOUNTER 2016-08-25 07:12 | Day surgery (SDC) | payer OTHER, BC, MEDICARE ==
[2016-08-25 09:22] LABS: MCH 28.7 pg (25.7-33.7); MCHC 33.1 g/dl (32.0-36.0); MEAN CELL VOLUME 86.6 fl (80-96); MEAN PLT VOLUME 8.2 fl (7.5-11.1); PLATELET COUNT 190 K/MM3 (134-434); RDW 19.8 % (11.6-15.6)
[2016-08-25 10:56] VITALS: BP 148/65; PULSE 53; TEMP 97.7
[2016-08-25] MEDS: BORTEZOMIB (VELCADE) 2.5 MG/ML SUB-Q INJECTION SQ ONE (11:41)
[2016-08-25 12:36] LABS: ALBUMIN 3.3 g/dl (3.4-5.0); BILIRUBIN,DIRECT 0.1 mg/dL (0.0-0.2); BILIRUBIN,TOTAL 0.4 mg/dL (0.2-1.0); MAGNESIUM 2.1 mg/dL (1.8-2.4); TOT PROT 5.9 g/dl (6.4-8.2)
[2016-08-25 13:23] LABS: PLATELET ESTIMATE ADEQUATE (NORMAL)
[2016-08-26 08:08] LABS: IGG IMMUNOGLOBULIN 561 mg/dL (700-1600); IGM IMMUNOGLOBULIN 14 mg/dL (26-217)
[2016-08-27 00:10] LABS: FREE KAP CHN UR 18.2 mg/L (1.35-24.19); FREE LAMB CHN UR 2.21 mg/L (0.24-6.66); KAPPA LAMBDA RATIO URIN 8.24 (2.04-10.37)
== END 2016-08-25 14:37 | disposition home or self-care (01) ==
LOC: JONCCHEMO 07:12 → J7W 10:39 → JONCCHEMO 14:37
PROVIDERS: ATTEND Internal Medicine Hematology & Oncology
DX: Z51.11 Encounter for antineoplastic chemotherapy (principal); C90.00 Multiple myeloma not having achieved remission
CPT/HCPCS: 96401; J9041; 36415; 80076; 82784; 83735; 83883; 85025

== ENCOUNTER 2016-09-08 07:28 | Day surgery (SDC) | payer OTHER, BC, MEDICARE ==
[2016-09-08] MEDS ORDERED: BORTEZOMIB (VELCADE) 2.5 MG/ML SUB-Q INJECTION SQ ONE (08:00)
[2016-09-08 09:13] LABS: MCH 28.6 pg (25.7-33.7); MCHC 32.9 g/dl (32.0-36.0); MEAN PLT VOLUME 7.7 fl (7.5-11.1); PLATELET COUNT 194 K/MM3 (134-434); RDW 19.4 % (11.6-15.6)
[2016-09-08 10:28] VITALS: TEMP 98.5
[2016-09-08 11:35] LABS: ALBUMIN 3.4 g/dl (3.4-5.0); BILIRUBIN,DIRECT 0.1 mg/dL (0.0-0.2); BILIRUBIN,TOTAL 0.3 mg/dL (0.2-1.0); TOT PROT 6.3 g/dl (6.4-8.2)
[2016-09-08 14:02] VITALS: BP 135/72; PULSE 70
[2016-09-08 17:59] LABS: PLATELET ESTIMATE ADEQUATE (NORMAL)
[2016-09-08 18:00] LABS: ANISOCYTOSIS 1+
== END 2016-09-08 14:04 | disposition home or self-care (01) ==
LOC: JONCCHEMO 07:28 → J7W 10:18 → JONCCHEMO 14:04
PROVIDERS: ATTEND Internal Medicine Hematology & Oncology
DX: Z51.11 Encounter for antineoplastic chemotherapy (principal); C90.00 Multiple myeloma not having achieved remission
CPT/HCPCS: 36415; 80076; 85025; 93970-TC; 96401; J9041

== ENCOUNTER 2016-09-29 07:33 | Day surgery (SDC) | payer OTHER, BC, MEDICARE ==
[2016-09-29 09:56] LABS: BASOPHIL 0.8 % (0-2.0); EOSINOPHIL 2.2 % (0-4.5); MCH 28.8 pg (25.7-33.7); MCHC 33.2 g/dl (32.0-36.0); MEAN CELL VOLUME 86.7 fl (80-96); MEAN PLT VOLUME 7.3 fl (7.5-11.1); RDW 19.1 % (11.6-15.6); WHITE BLOOD COUNT 6.7 K/mm3 (4.0-10.0)
[2016-09-29] MEDS ORDERED: BORTEZOMIB (VELCADE) 2.5 MG/ML SUB-Q INJECTION SQ ONE (10:00)
[2016-09-29 10:29] LABS: ALBUMIN 3.4 g/dl (3.4-5.0); ALK PHOS 53 U/L (45-117); ANION GAP 10 (8-16); BILIRUBIN,TOTAL 0.5 mg/dL (0.2-1.0); CALCIUM 9.2 mg/dL (8.5-10.1); CO2 22 mmol/L (21-32); CREATININE 0.8 mg/dL (0.55-1.02); GLUCOSE,RANDOM 132 mg/dL (74-106); MAGNESIUM 2.3 mg/dL (1.8-2.4); SGOT/AST 43 U/L (15-37); SGPT/ALT 29 U/L (12-78); TOT PROT 6.2 g/dl (6.4-8.2)
[2016-09-29 11:32] LABS: PLATELET COUNT 184 K/MM3 (134-434); PLATELET ESTIMATE ADEQUATE (NORMAL)
[2016-09-29 17:13] VITALS: BP 140/66; PULSE 69; TEMP 98.3
== END 2016-09-29 11:52 | disposition home or self-care (01) ==
LOC: JONCCHEMO 07:33 → J7W 11:10 → JONCCHEMO 11:52
PROVIDERS: ATTEND Internal Medicine Hematology & Oncology
PROC: 3E00X05 Introduction of Other Antineoplastic into Skin and Mucous Membranes, External Approach (ICD-10-PCS; principal; 2016-09-29)
DX: Z51.11 Encounter for antineoplastic chemotherapy (principal); C90.00 Multiple myeloma not having achieved remission
CPT/HCPCS: 36415; 80053; 83735; 85025; 96401; J9041

== ENCOUNTER 2016-10-13 07:19 | Day surgery (SDC) | payer OTHER, BC, MEDICARE ==
[2016-10-13 09:33] LABS: BASOPHIL 1.2 % (0-2.0); MCH 28.3 pg (25.7-33.7); MCHC 32.7 g/dl (32.0-36.0); MEAN CELL VOLUME 86.5 fl (80-96); MEAN PLT VOLUME 7.6 fl (7.5-11.1); NEUTROPHILS 74.1 % (42.8-82.8); PLATELET COUNT 216 K/MM3 (134-434); RDW 19.1 % (11.6-15.6); WHITE BLOOD COUNT 4.8 K/mm3 (4.0-10.0)
[2016-10-13 09:57] LABS: ALBUMIN 3.4 g/dl (3.4-5.0); ANION GAP 8 (8-16); CALCIUM 8.5 mg/dL (8.5-10.1); CO2 27 mmol/L (21-32); GLUCOSE,RANDOM 100 mg/dL (74-106); MAGNESIUM 2.3 mg/dL (1.8-2.4)
[2016-10-13] MEDS ORDERED: BORTEZOMIB (VELCADE) 2.5 MG/ML SUB-Q INJECTION SQ ONE (10:00)
[2016-10-13 10:03] LABS: ALK PHOS 53 U/L (45-117); BILIRUBIN,DIRECT 0.1 mg/dL (0.0-0.2); BILIRUBIN,TOTAL 0.5 mg/dL (0.2-1.0); CREATININE 0.8 mg/dL (0.55-1.02); SGOT/AST 28 U/L (15-37); SGPT/ALT 31 U/L (12-78); TOT PROT 6.1 g/dl (6.4-8.2)
[2016-10-13 11:09] VITALS: BP 148/74; PULSE 65; TEMP 97.6
== END 2016-10-13 11:34 | disposition home or self-care (01) ==
LOC: JONCCHEMO 07:19 → J7W 11:03 → JONCCHEMO 11:34
PROVIDERS: ATTEND Internal Medicine Hematology & Oncology
DX: Z51.11 Encounter for antineoplastic chemotherapy (principal); C90.00 Multiple myeloma not having achieved remission
CPT/HCPCS: 96401; J9041; 36415; 80053; 80076; 83735; 85025

== ENCOUNTER 2016-10-27 07:46 | Day surgery (SDC) | payer OTHER, BC, MEDICARE ==
[2016-10-27 09:54] VITALS: PULSE 64
[2016-10-27] MEDS ORDERED: BORTEZOMIB (VELCADE) 2.5 MG/ML SUB-Q INJECTION SQ ONE (10:00)
[2016-10-27 10:24] LABS: BASOPHIL 0.3 % (0-2.0); MCH 27.9 pg (25.7-33.7); MCHC 32.7 g/dl (32.0-36.0); MEAN CELL VOLUME 85.4 fl (80-96); MEAN PLT VOLUME 7.9 fl (7.5-11.1); NEUTROPHILS 91.3 % (42.8-82.8); PLATELET COUNT 222 K/MM3 (134-434); RDW 19.1 % (11.6-15.6); WHITE BLOOD COUNT 6.5 K/mm3 (4.0-10.0)
[2016-10-27 10:54] LABS: ALBUMIN 3.4 g/dl (3.4-5.0); ANION GAP 8 (8-16); BILIRUBIN,DIRECT 0.1 mg/dL (0.0-0.2); BILIRUBIN,TOTAL 0.4 mg/dL (0.2-1.0); CO2 28 mmol/L (21-32); GLUCOSE,RANDOM 113 mg/dL (74-106); MAGNESIUM 2.1 mg/dL (1.8-2.4); SGOT/AST 24 U/L (15-37); SGPT/ALT 25 U/L (12-78)
[2016-10-27 10:55] LABS: ALK PHOS 59 U/L (45-117); TOT PROT 6.3 g/dl (6.4-8.2)
[2016-10-27 11:44] VITALS: BP 135/66; TEMP 97.4
== END 2016-10-27 14:45 | disposition home or self-care (01) ==
LOC: JONCCHEMO 07:46 → J7W 11:40 → JONCCHEMO 14:45
PROVIDERS: ATTEND Internal Medicine Hematology & Oncology
DX: Z51.11 Encounter for antineoplastic chemotherapy (principal); C90.00 Multiple myeloma not having achieved remission
CPT/HCPCS: 36415; 80053; 80076; 83735; 85025; 96401; J9041

== ENCOUNTER 2016-11-10 07:40 | Day surgery (SDC) | payer OTHER, BC, MEDICARE ==
[2016-11-10] MEDS ORDERED: ZOLEDRONIC ACID 4 MG in SODIUM CHLORIDE 100 ML IVPB ONE (08:00)
[2016-11-10] MEDS ORDERED: BORTEZOMIB (VELCADE) 2.5 MG/ML SUB-Q INJECTION SQ ONE (08:45)
[2016-11-10 09:45] VITALS: BP 128/60; PULSE 76; TEMP 98.5
[2016-11-10 10:49] LABS: BASOPHIL 0.6 % (0-2.0); EOSINOPHIL 0.8 % (0-4.5); MCH 27.5 pg (25.7-33.7); MCHC 32.3 g/dl (32.0-36.0); MEAN CELL VOLUME 85.3 fl (80-96); MEAN PLT VOLUME 7.7 fl (7.5-11.1); NEUTROPHILS 92.6 % (42.8-82.8); PLATELET COUNT 224 K/MM3 (134-434); WHITE BLOOD COUNT 6.2 K/mm3 (4.0-10.0)
[2016-11-10 11:10] LABS: ALBUMIN 3.4 g/dl (3.4-5.0); ANION GAP 9 (8-16); BILIRUBIN,DIRECT 0.2 mg/dL (0.0-0.2); BILIRUBIN,TOTAL 0.4 mg/dL (0.2-1.0); CALCIUM 9.3 mg/dL (8.5-10.1); CO2 28 mmol/L (21-32); CREATININE 1.1 mg/dL (0.55-1.02); GLUCOSE,RANDOM 113 mg/dL (74-106); MAGNESIUM 2.2 mg/dL (1.8-2.4); SGOT/AST 27 U/L (15-37); SGPT/ALT 25 U/L (12-78); TOT PROT 6.4 g/dl (6.4-8.2)
[2016-11-10 11:11] LABS: ALK PHOS 61 U/L (45-117)
[2016-11-10 13:04] LABS: ERYTHROCYTE SEDIMENTATION RATE 21 mm/hr (0-30)
[2016-11-13 00:06] LABS: FREE KAP CHN UR 5.77 mg/L (1.35-24.19); FREE LAMB CHN UR 0.4 mg/L (0.24-6.66); KAPPA LAMBDA RATIO URIN 14.43 (2.04-10.37); M-SPIKE, % Not Observed % (Not Observed)
== END 2016-11-10 14:00 | disposition home or self-care (01) ==
LOC: JONCCHEMO 07:40 → J7W 11:51 → JONCCHEMO 14:00
PROVIDERS: ATTEND Internal Medicine Hematology & Oncology
PROC: 3E01305 Introduction of Other Antineoplastic into Subcutaneous Tissue, Percutaneous Approach (ICD-10-PCS; principal; 2016-11-10)
PROC: 3E033GC Introduction of Other Therapeutic Substance into Peripheral Vein, Percutaneous Approach (ICD-10-PCS; 2016-11-10)
DX: Z51.11 Encounter for antineoplastic chemotherapy (principal); C90.00 Multiple myeloma not having achieved remission
CPT/HCPCS: 96365; 96401; J9041; 36415; 80053; 80076; 82785; 83735; 83883; 84156; 84157; 85025; 85651; 96417; J3489

== ENCOUNTER 2016-11-24 07:45 | Day surgery (SDC) | payer OTHER, BC, MEDICARE ==
[2016-11-24] MEDS ORDERED: BORTEZOMIB (VELCADE) 2.5 MG/ML SUB-Q INJECTION SQ ONE ×2 (08:00)
[2016-11-24 08:47] LABS: BASOPHIL 1.4 % (0-2.0); EOSINOPHIL 2.4 % (0-4.5); MCH 27.5 pg (25.7-33.7); MCHC 33.1 g/dl (32.0-36.0); MEAN PLT VOLUME 7.1 fl (7.5-11.1); NEUTROPHILS 81.1 % (42.8-82.8); PLATELET COUNT 214 K/MM3 (134-434); RDW 19.3 % (11.6-15.6); WHITE BLOOD COUNT 4.8 K/mm3 (4.0-10.0)
[2016-11-24 09:23] LABS: ALBUMIN 3.3 g/dl (3.4-5.0); ANION GAP 9 (8-16); BILIRUBIN,DIRECT 0.1 mg/dL (0.0-0.2); CALCIUM 8.6 mg/dL (8.5-10.1); CO2 26 mmol/L (21-32); GLUCOSE,RANDOM 105 mg/dL (74-106); MAGNESIUM 2.2 mg/dL (1.8-2.4); SGOT/AST 22 U/L (15-37); SGPT/ALT 25 U/L (12-78); TOT PROT 6.4 g/dl (6.4-8.2)
[2016-11-24 09:24] LABS: ALK PHOS 60 U/L (45-117); BILIRUBIN,TOTAL 0.3 mg/dL (0.2-1.0)
[2016-11-24 10:26] VITALS: BP 133/72; PULSE 62; TEMP 97.8
== END 2016-11-24 11:00 | disposition home or self-care (01) ==
LOC: JONCCHEMO 07:45 → J7W 09:49 → JONCCHEMO 11:00
PROVIDERS: ATTEND Internal Medicine Hematology & Oncology
DX: Z51.11 Encounter for antineoplastic chemotherapy (principal); C90.00 Multiple myeloma not having achieved remission
CPT/HCPCS: 36415; 73030-TC-LT; 73060-TC-LT; 80053; 80076; 83735; 85025; 96401; J9041

== ENCOUNTER 2016-12-08 07:43 | Day surgery (SDC) | payer OTHER, BC, MEDICARE ==
[2016-12-08 09:25] LABS: BASOPHIL 0.9 % (0-2.0); EOSINOPHIL 2.5 % (0-4.5); MCH 26.8 pg (25.7-33.7); MCHC 32.2 g/dl (32.0-36.0); MEAN CELL VOLUME 83.2 fl (80-96); MEAN PLT VOLUME 7.4 fl (7.5-11.1); NEUTROPHILS 68.3 % (42.8-82.8); PLATELET COUNT 247 K/MM3 (134-434); RDW 19.6 % (11.6-15.6); WHITE BLOOD COUNT 4.3 K/mm3 (4.0-10.0)
[2016-12-08 09:49] LABS: ALBUMIN 3.4 g/dl (3.4-5.0); ANION GAP 5 (8-16); BILIRUBIN,DIRECT < 0.2 mg/dL (0.0-0.2); CALCIUM 8.9 mg/dL (8.5-10.1); CO2 29 mmol/L (21-32); CREATININE 0.8 mg/dL (0.55-1.02); GLUCOSE,RANDOM 92 mg/dL (74-106); MAGNESIUM 2.1 mg/dL (1.8-2.4); SGOT/AST 23 U/L (15-37); SGPT/ALT 28 U/L (12-78)
[2016-12-08 09:51] LABS: ALK PHOS 55 U/L (45-117); BILIRUBIN,TOTAL 0.5 mg/dL (0.2-1.0); TOT PROT 6.1 g/dl (6.4-8.2)
[2016-12-08] MEDS ORDERED: BORTEZOMIB (VELCADE) 2.5 MG/ML SUB-Q INJECTION SQ ONE (10:00)
[2016-12-08 15:12] VITALS: BP 129/60; PULSE 58; TEMP 97.7
== END 2016-12-08 12:00 | disposition home or self-care (01) ==
LOC: JONCCHEMO 07:43 → J7W 10:10 → JONCCHEMO 12:00
PROVIDERS: ATTEND Internal Medicine Hematology & Oncology
DX: Z51.11 Encounter for antineoplastic chemotherapy (principal); C90.00 Multiple myeloma not having achieved remission; E03.9 Hypothyroidism, unspecified; E11.9 Type 2 diabetes mellitus without complications; G62.9 Polyneuropathy, unspecified
CPT/HCPCS: 96401; J9041; 36415; 80053; 80076; 83735; 85025

== ENCOUNTER 2016-12-22 07:42 | Day surgery (SDC) | payer OTHER, BC, MEDICARE ==
[2016-12-22 08:46] LABS: MCH 26.8 pg (25.7-33.7); MCHC 32.3 g/dl (32.0-36.0); MEAN PLT VOLUME 7.4 fl (7.5-11.1); PLATELET COUNT 210 K/MM3 (134-434); RDW 20.1 % (11.6-15.6); WHITE BLOOD COUNT 3.8 K/mm3 (4.0-10.0)
[2016-12-22 09:16] LABS: ALBUMIN 3.5 g/dl (3.4-5.0); ANION GAP 7 (8-16); BILIRUBIN,TOTAL 0.5 mg/dL (0.2-1.0); CALCIUM 9.3 mg/dL (8.5-10.1); CO2 27 mmol/L (21-32); CREATININE 0.9 mg/dL (0.55-1.02); GLUCOSE,RANDOM 78 mg/dL (74-106); SGPT/ALT 29 U/L (12-78); TOT PROT 6.1 g/dl (6.4-8.2)
[2016-12-22 09:17] LABS: ALK PHOS 52 U/L (45-117)
[2016-12-22 09:27] LABS: PLATELET ESTIMATE ADEQUATE (NORMAL)
[2016-12-22 09:28] LABS: BILIRUBIN,DIRECT < 0.2 mg/dL (0.0-0.2); MAGNESIUM 2.3 mg/dL (1.8-2.4); TOTAL CELLS COUNTED 100
[2016-12-22 09:30] LABS: SGOT/AST 39 U/L (15-37)
[2016-12-22] MEDS ORDERED: BORTEZOMIB (VELCADE) 2.5 MG/ML SUB-Q INJECTION SQ ONE (10:00)
[2016-12-22 13:22] VITALS: BP 125/59; PULSE 68; TEMP 97.5
== END 2016-12-22 11:00 | disposition home or self-care (01) ==
LOC: JONCCHEMO 07:42 → J7W 10:10 → JONCCHEMO 11:00
PROVIDERS: ATTEND Internal Medicine Hematology & Oncology
DX: Z51.11 Encounter for antineoplastic chemotherapy (principal); C90.00 Multiple myeloma not having achieved remission; E11.9 Type 2 diabetes mellitus without complications; G62.9 Polyneuropathy, unspecified; E30.9 Disorder of puberty, unspecified
CPT/HCPCS: 96401; J9041; 36415; 80053; 80076; 83735; 85025

== ENCOUNTER 2017-01-03 12:11 | Emergency (ER) | payer OTHER, BC, MEDICARE ==
[2017-01-03 12:19] VITALS: PULSE 64; TEMP 97.9; BMI 23.9
[2017-01-03] MEDS ORDERED: ACETAMINOPHEN 325 MG TABLET (FP) PO ONE (12:27)
--- NOTE | 2017-01-03 12:35 | PDOC ---
History of Present Illness - General History Source: Patient Exam Limitations: No Limitations - History of Present Illness Initial Comments: 01/03/17 13:09 The patient is a 86 year old female from [facility], with a significant past medical history of Dementia, Vertigo, AFIB, HTN, HLD, GERD, Multiple myeloma, and Diabetes Mellitus who presents to the emergency department s/p fall with R rib cage pain. Patient fell out of bed 2 days ago however denies any head trauma, LOC, nausea or vomiting. Patient denies any neck or back pain. Patient denies taking any pain medications for relief and presents to the ED for further evaluation. She denies chest pain, headache or dizziness. She denies fever, chills, abdominal pain, nausea, vomit, diarrhea or constipation. She denies dysuria, frequency, urgency or hematuria. <Clementina Hoffman - Last Filed: 01/03/17 13:08> - General History Source: Patient Exam Limitations: No Limitations <Tina Zhou - Last Filed: 01/03/17 16:55> - General Chief Complaint: Injury Stated Complaint: FALL Time Seen by Provider: 01/03/17 12:23 Past History <Clementina Hoffman - Last Filed: 01/03/17 13:08> - Past Medical History Anemia: No Asthma: No Cancer: Yes (THYROID, MULTIPLE MYELOMA) Cardiac Disorders: Yes (afib/DVT) CVA: No COPD: No CHF: No Dementia: No Diabetes: Yes (NIDDM) GI Disorders: No Disorders: No HTN: Yes Hypercholesterolemia: Yes Liver Disease: No Suicide Attempt (Hx): No Seizures: No Thyroid Disease: Yes (thyroid cancer, thyroidectomy done in 1999) - Surgical History Abdominal Surgery: Yes (exploratory lap) - Immunization History Immunization Up to Date: No - Psycho/Social/Smoking Cessation Hx Anxiety: No Suicidal Ideation: No Smoking Status: No Smoking History: Never smoked Have you smoked in the past 12 months: No Number of Cigarettes Smoked Daily: 0 If you are a former smoker, when did you quit?: 40 years ago Information on smoking cessation initiated: No Hx Alcohol Use: No Drug/Substance Use Hx: No Substance Use Type: None Hx Substance Use Treatment: No <Tina Zhou - Last Filed: 01/03/17 16:55> - Past Medical History Allergies/Adverse Reactions: Allergies Allergy/AdvReac Type Severity Reaction Status Date / Time No Known Allergies Allergy Verified 01/03/17 12:15 Home Medications: Ambulatory Orders Docusate Sodium [Dok] 100 mg PO HS 05/17/16 Gabapentin [Neurontin] 800 mg PO BID 05/17/16 Levothyroxine [Synthroid -] 75 mcg PO DAILY 05/17/16 Valacyclovir HCl [Valtrex -] 500 mg PO DAILY 05/17/16 Furosemide [Lasix -] 20 mg PO DAILY 06/23/16 Sennosides [Senna] 8.6 mg PO HS 06/23/16 Acetaminophen [Pain Relief] 650 mg PO QID PRN 01/03/17 Ammonium Lactate Lotion [Lac-Hydrin 12% Lotion -] 1 applic TP ASDIR 01/03/17 Atorvastatin Calcium 10 mg PO DAILY 01/03/17 Dexamethasone [Decadron -] 20 mg PO WE 01/03/17 Fluticasone Prop 0.05% Nasal [Flonase -] 2 spray NS DAILY 01/03/17 Pantoprazole Sodium [Protonix] 40 mg PO DAILY 01/03/17 Petrolatum,White [Aquaphor with Natural Healing] 0 gm TP ASDIR 01/03/17 Pramipexole Di-HCl [Mirapex] 0.25 mg PO HS 01/03/17 Warfarin Sodium [Coumadin] 5 mg PO SA 01/03/17 Warfarin Sodium [Coumadin] 7.5 mg PO SUMOTUWETH 01/03/17 Review of Systems - Review of Systems Able to Perform ROS?: Yes Comments:: 01/03/17 13:09 GENERAL/CONSTITUTIONAL: No fever or chills. No weakness. HEAD, EYES, EARS, NOSE AND THROAT: No change in vision. No ear pain or discharge. No sore throat. GASTROINTESTINAL: No nausea, vomiting, diarrhea or constipation. GENITOURINARY: No dysuria, frequency, or change in urination. CARDIOVASCULAR: No chest pain or shortness of breath. RESPIRATORY: No cough, wheezing, or hemoptysis. MUSCULOSKELETAL: + R rib cage pain. No joint or muscle swelling or pain. No neck or back pain. SKIN: No rash NEUROLOGIC: No headache, vertigo, loss of consciousness, or change in strength/ sensation. ENDOCRINE: No increased thirst. No abnormal weight change. HEMATOLOGIC/LYMPHATIC: No anemia, easy bleeding, or history of blood clots. ALLERGIC/IMMUNOLOGIC: No hives or skin allergy. <Clementina Hoffman - Last Filed: 01/03/17 13:08> *Physical Exam - Vital Signs Last Vital Signs Temp Pulse Resp BP Pulse Ox 97.9 F 64 18 122/74 100 01/03/17 12:16 01/03/17 12:16 01/03/17 12:16 01/03/17 12:16 01/03/17 12:16 - Physical Exam Comments: 01/03/17 13:09 GENERAL: Awake, alert, and fully oriented, in no acute distress HEAD: No signs of trauma EYES: PERRLA, EOMI, sclera anicteric, conjunctiva clear ENT: Auricles normal inspection, nares patent, Moist mucosa NECK: Normal ROM, supple, no lymphadenopathy, JVD, or masses LUNGS: Breath sounds equal, clear to auscultation bilaterally. No wheezes, and no crackles HEART: Regular rate and rhythm, normal S1 and S2, no murmurs, rubs or gallops ABDOMEN: Soft, nontender, normoactive bowel sounds. No guarding, no rebound. No masses EXTREMITIES: Normal range of motion, no edema. No clubbing or cyanosis. No cords, erythema, or tenderness. R Hip full ROM. Ankle is full ROM. No cervical spine tenderness. +R lateral rib tenderness. No crepitus. No step off. NEUROLOGICAL: Normal speech. GCS: 15 SKIN: Warm, Dry, normal turgor, no rashes or lesions noted. <Clementina Hoffman - Last Filed: 01/03/17 13:08> - Vital Signs Last Vital Signs Temp Pulse Resp BP Pulse Ox 97.9 F 64 18 122/74 100 01/03/17 12:16 01/03/17 12:16 01/03/17 12:16 01/03/17 12:16 01/03/17 12:16 <Tina Zhou - Last Filed: 01/03/17 16:55> ED Treatment Course - Medications Given in the ED: ED Medications Discontinued Medications Generic Name Dose Route Start Last Admin Trade Name Freq PRN Reason Stop Dose Admin Acetaminophen 650 mg 01/03/17 12:27 01/03/17 12:45 Tylenol - PO 01/03/17 12:28 650 mg ONCE ONE Administration <Clementina Hoffman - Last Filed: 01/03/17 13:08> - LABORATORY CBC & Chemistry Diagram: 01/03/17 14:45 01/03/17 14:45 - RADIOLOGY Radiology Studies Ordered: Category Date Time Status CHEST PA & LAT [RAD] Stat Radiology 01/03/17 12:28 Ordered RIBS RIGHT SIDE [RAD] Stat Radiology 01/03/17 12:28 Ordered <Tina Zhou - Last Filed: 01/03/17 16:55> Medical Decision Making - Medical Decision Making 01/03/17 12:28 86 yo F wit h/o multiple myleoma here s/p fall out of bed 2 days ago, here with c/o right rib pain. no sob. but pain with breathing. did not hit head. no neck or back pain. took motrin 600 mg for pain yesterday nothing today. ambulating without difficulty since fall. 01/03/17 15:58 pt with old rib fracture on ct chest, pt unsure if has had prior falls. called [facility] [phone] facility to inform them of ct findings. pt to be on incentive spirometer. fx are old not new. will send to rehab, with spirometer. 01/03/17 16:20 called left message for DR Grimm [phone], left voicemail. left message with nursing maintenance and operations supervisor regarding Inr 4. will have to hold coumadin few days. and repeat. d/w son Keyshawn Ashton [phone]. confirms pt had old fall several months ago when fell in bathtub. and does have h/o multiple myeloma. <Tina Zhou - Last Filed: 01/03/17 16:55> *DC/Admit/Observation/Transfer - Attestations Scribe Attestion: 01/03/17 13:09 Documentation prepared by Clementina Hoffman, acting as medical records tech for Tina Zhou MD <Clementina Hoffman - Last Filed: 01/03/17 13:08> - Discharge Dispostion Admit: No <Tina Zhou - Last Filed: 01/03/17 16:55> Diagnosis at time of Disposition: Rib fractures, Coagulation disorder - Discharge Dispostion Disposition: RESIDENTIAL FACILITY Condition at time of disposition: Improved - Referrals - Patient Instructions Printed Discharge Instructions: DI for Rib Contusion, How to Use an Incentive Spirometer Additional Instructions: you should use deep inspirometer 10 times every 2 hours for the next few days. return for difficulty breathing, worsening pain or any concerns. you can take tylenol 500 mg every 6 hours as needed for pain. follow up with your regular doctor. your xray is negative for broken ribs, but there can still be subtle injuries which do not show up on chest xray, therefore it is importent to still use your incentive spirometer. you InR today is 4. you need to hold your coumadin for 2 - 3 days and repeat INR see attached labs.
[2017-01-03] MEDS ORDERED: ACETAMINOPHEN 325 MG TABLET (FP) ONE (12:42)
[2017-01-03 15:27] LABS: BASOPHIL 2.5 % (0-2.0); EOSINOPHIL 2.3 % (0-4.5); MCH 27.1 pg (25.7-33.7); MCHC 33.2 g/dl (32.0-36.0); MEAN CELL VOLUME 81.8 fl (80-96); MEAN PLT VOLUME 7.7 fl (7.5-11.1); NEUTROPHILS 66.2 % (42.8-82.8); PLATELET COUNT 213 K/MM3 (134-434); RDW 20.8 % (11.6-15.6); WHITE BLOOD COUNT 3.7 K/mm3 (4.0-10.0)
[2017-01-03 15:30] LABS: ALBUMIN 3.4 g/dl (3.4-5.0); ALK PHOS 64 U/L (45-117); ANION GAP 10 (8-16); BILIRUBIN,TOTAL 0.5 mg/dL (0.2-1.0); CALCIUM 8.9 mg/dL (8.5-10.1); CO2 27 mmol/L (21-32); CREATININE 0.8 mg/dL (0.55-1.02); GLUCOSE,RANDOM 85 mg/dL (74-106); SGOT/AST 29 U/L (15-37); SGPT/ALT 33 U/L (12-78); TOT PROT 5.9 g/dl (6.4-8.2)
[2017-01-03 15:58] LABS: PROTHROMBIN TIME (PATIENT) 51.8 SEC (9.98-11.88)
[2017-01-03 16:01] LABS: ACTIVATED PTT 62.2 SECONDS (26.9-34.4)
[2017-01-03 16:04] LABS: INR 4.57 (0.82-1.09)
[2017-01-03 18:02] LABS: ANISOCYTOSIS 2+; HYPOCHROMIA 1+; PLATELET ESTIMATE ADEQUATE (NORMAL)
[2017-01-03 18:04] VITALS: BP 149/6
== END 2017-01-03 18:30 ==
LOC: JER 12:11
DX: S22.41XA Multiple fractures of ribs, right side, initial encounter for closed fracture (principal); W06.XXXA Fall from bed, initial encounter; Y93.89 Activity, other specified; Y92.122 Bedroom in nursing home as the place of occurrence of the external cause; I10 Essential (primary) hypertension; E11.9 Type 2 diabetes mellitus without complications; I48.91 Unspecified atrial fibrillation; Z79.01 Long term (current) use of anticoagulants; F03.90 Unspecified dementia, unspecified severity, without behavioral disturbance, psychotic disturbance, mood disturbance, and anxiety; K21.9 Gastro-esophageal reflux disease without esophagitis; C90.00 Multiple myeloma not having achieved remission; Z86.718 Personal history of other venous thrombosis and embolism
CPT/HCPCS: 36415; 70450-TC; 71020-TC; 71101-TC-RT; 71250-TC; 80053; 85025; 85610; 85730; 99284-25

== ENCOUNTER 2017-01-05 07:39 | Day surgery (SDC) | payer OTHER, BC, MEDICARE ==
[2017-01-05] MEDS ORDERED: BORTEZOMIB (VELCADE) 2.5 MG/ML SUB-Q INJECTION SQ ONE (08:00)
[2017-01-05 09:36] LABS: BASOPHIL 1.4 % (0-2.0); EOSINOPHIL 2.3 % (0-4.5); MCH 26.5 pg (25.7-33.7); MCHC 32.1 g/dl (32.0-36.0); MEAN CELL VOLUME 82.5 fl (80-96); MEAN PLT VOLUME 7.1 fl (7.5-11.1); NEUTROPHILS 72.8 % (42.8-82.8); PLATELET COUNT 206 K/MM3 (134-434); RDW 20.6 % (11.6-15.6); WHITE BLOOD COUNT 4.4 K/mm3 (4.0-10.0)
[2017-01-05 10:14] LABS: ALBUMIN 3.4 g/dl (3.4-5.0); ALK PHOS 59 U/L (45-117); ANION GAP 7 (8-16); BILIRUBIN,DIRECT 0.1 mg/dL (0.0-0.2); BILIRUBIN,TOTAL 0.5 mg/dL (0.2-1.0); CO2 30 mmol/L (21-32); CREATININE 0.9 mg/dL (0.55-1.02); GLUCOSE,RANDOM 109 mg/dL (74-106); MAGNESIUM 1.9 mg/dL (1.8-2.4); SGOT/AST 31 U/L (15-37); SGPT/ALT 33 U/L (12-78); TOT PROT 6.2 g/dl (6.4-8.2)
[2017-01-05 11:44] VITALS: TEMP 97.9
[2017-01-05 11:47] VITALS: BP 154/76; PULSE 74
== END 2017-01-05 11:00 | disposition home or self-care (01) ==
LOC: JONCCHEMO 07:39 → J7W 10:30 → JONCCHEMO 11:00
PROVIDERS: ATTEND Internal Medicine Hematology & Oncology
DX: Z51.11 Encounter for antineoplastic chemotherapy (principal); C90.00 Multiple myeloma not having achieved remission
CPT/HCPCS: 36415; 80053; 80076; 83735; 85025; 96401; J9041

== ENCOUNTER 2017-01-19 07:34 | Day surgery (SDC) | payer OTHER, BC, MEDICARE ==
[2017-01-19] MEDS ORDERED: BORTEZOMIB (VELCADE) 2.5 MG/ML SUB-Q INJECTION SQ ONE (08:00)
[2017-01-19 09:58] LABS: BASOPHIL 0.8 % (0-2.0); EOSINOPHIL 0.8 % (0-4.5); MCH 26.7 pg (25.7-33.7); MCHC 32.6 g/dl (32.0-36.0); MEAN CELL VOLUME 82.1 fl (80-96); MEAN PLT VOLUME 7.2 fl (7.5-11.1); NEUTROPHILS 89.4 % (42.8-82.8); PLATELET COUNT 228 K/MM3 (134-434); RDW 20.6 % (11.6-15.6); WHITE BLOOD COUNT 4.7 K/mm3 (4.0-10.0)
[2017-01-19 10:32] LABS: CALCIUM 8.7 mg/dL (8.5-10.1)
[2017-01-19 10:38] LABS: ALBUMIN 3.7 g/dl (3.4-5.0); ALK PHOS 60 U/L (45-117); ANION GAP 9 (8-16); BILIRUBIN,DIRECT 0.2 mg/dL (0.0-0.2); BILIRUBIN,TOTAL 0.6 mg/dL (0.2-1.0); CO2 27 mmol/L (21-32); CREATININE 0.8 mg/dL (0.55-1.02); GLUCOSE,RANDOM 88 mg/dL (74-106); MAGNESIUM 2.1 mg/dL (1.8-2.4); SGOT/AST 23 U/L (15-37); SGPT/ALT 28 U/L (12-78); TOT PROT 6.4 g/dl (6.4-8.2)
[2017-01-19] MEDS ORDERED: amLODIPine BESYLATE 5 MG TABLET (FP) PO PRN (12:10)
[2017-01-19 14:18] VITALS: PULSE 60
[2017-01-19 15:22] VITALS: TEMP 98
[2017-01-19 17:04] VITALS: BP 127/73
== END 2017-01-19 11:30 | disposition home or self-care (01) ==
LOC: JONCCHEMO 07:34 → J7W 11:07 → JONCCHEMO 11:30
PROVIDERS: ATTEND Internal Medicine Hematology & Oncology
DX: Z51.11 Encounter for antineoplastic chemotherapy (principal); C90.00 Multiple myeloma not having achieved remission
CPT/HCPCS: 36415; 80053; 80076; 83735; 85025; 96401; J9041

== ENCOUNTER 2017-02-02 07:31 | Day surgery (SDC) | payer OTHER, BC, MEDICARE ==
[2017-02-02] MEDS ORDERED: BORTEZOMIB (VELCADE) 2.5 MG/ML SUB-Q INJECTION SQ ONE (10:00)
[2017-02-02] MEDS ORDERED: ZOLEDRONIC ACID 4 MG in SODIUM CHLORIDE 100 ML IVPB ONE (10:00)
[2017-02-02 10:23] LABS: ALBUMIN 3.4 g/dl (3.4-5.0); ANION GAP 8 (8-16); BILIRUBIN,DIRECT 0.2 mg/dL (0.0-0.2); CALCIUM 9.1 mg/dL (8.5-10.1); CO2 27 mmol/L (21-32); CREATININE 0.9 mg/dL (0.55-1.02); GLUCOSE,RANDOM 123 mg/dL (74-106); MAGNESIUM 2.2 mg/dL (1.8-2.4); SGOT/AST 22 U/L (15-37); SGPT/ALT 26 U/L (12-78)
[2017-02-02 10:25] LABS: ALK PHOS 57 U/L (45-117); BILIRUBIN,TOTAL 0.5 mg/dL (0.2-1.0); TOT PROT 6.1 g/dl (6.4-8.2)
[2017-02-02 10:31] LABS: BASOPHIL 0.5 % (0-2.0); EOSINOPHIL 1.6 % (0-4.5); MCH 26.3 pg (25.7-33.7); MCHC 31.8 g/dl (32.0-36.0); MEAN CELL VOLUME 82.9 fl (80-96); MEAN PLT VOLUME 7.7 fl (7.5-11.1); NEUTROPHILS 89.1 % (42.8-82.8); PLATELET COUNT 220 K/MM3 (134-434)
[2017-02-02 16:10] VITALS: TEMP 98
[2017-02-02 16:11] VITALS: BP 143/82; PULSE 63
== END 2017-02-02 12:30 | disposition home or self-care (01) ==
LOC: JONCCHEMO 07:31 → J7W 11:00 → JONCCHEMO 12:30
PROVIDERS: ATTEND Internal Medicine Hematology & Oncology
DX: Z51.11 Encounter for antineoplastic chemotherapy (principal); C90.00 Multiple myeloma not having achieved remission
CPT/HCPCS: 36415; 80053; 80076; 82378; 83735; 85025; 86301; 96401; 96417; J3489; J9041

== ENCOUNTER 2017-02-16 06:51 | Day surgery (SDC) | payer OTHER, BC, MEDICARE ==
[2017-02-16 09:18] LABS: BASOPHIL 2.7 % (0-2.0); EOSINOPHIL 2.2 % (0-4.5); MCH 26.8 pg (25.7-33.7); MCHC 32.7 g/dl (32.0-36.0); MEAN PLT VOLUME 7.4 fl (7.5-11.1); PLATELET COUNT 197 K/MM3 (134-434); RDW 21.7 % (11.6-15.6)
[2017-02-16 09:43] LABS: ALBUMIN 3.2 g/dl (3.4-5.0); ANION GAP 8 (8-16); BILIRUBIN,DIRECT 0.1 mg/dL (0.0-0.2); BILIRUBIN,TOTAL 0.8 mg/dL (0.2-1.0); CALCIUM 8.3 mg/dL (8.5-10.1); CO2 26 mmol/L (21-32); GLUCOSE,RANDOM 104 mg/dL (74-106); MAGNESIUM 2.1 mg/dL (1.8-2.4); SGOT/AST 19 U/L (15-37); SGPT/ALT 21 U/L (12-78); TOT PROT 5.7 g/dl (6.4-8.2)
[2017-02-16 09:44] LABS: ALK PHOS 53 U/L (45-117)
[2017-02-16] MEDS ORDERED: BORTEZOMIB (VELCADE) 2.5 MG/ML SUB-Q INJECTION SQ ONE (10:00)
--- NOTE | 2017-02-16 13:23 | EKG ---
Test Reason : Blood Pressure : / mmHG Vent. Rate : 061 BPM Atrial Rate : 061 BPM P-R Int : 140 ms QRS Dur : 086 ms QT Int : 414 ms P-R-T Axes : 063 016 055 degrees QTc Int : 416 ms NORMAL SINUS RHYTHM POSSIBLE LEFT ATRIAL ENLARGEMENT BORDERLINE ECG WHEN COMPARED WITH ECG OF 18-MAY-2016 00:53, NO SIGNIFICANT CHANGE WAS FOUND Confirmed by GENEVA GUERRERO, LINDA ([id number]) on 02/16/2017 1:22:58 PM Referred By: COREY KELLY Confirmed By:LINDA BEAN MD
[2017-02-16 16:33] VITALS: TEMP 97.5
[2017-02-16 16:34] VITALS: BP 117/69; PULSE 61
== END 2017-02-16 11:00 | disposition home or self-care (01) ==
LOC: JONCCHEMO 06:51 → J7W 10:23 → JONCCHEMO 11:00
PROVIDERS: ATTEND Internal Medicine Hematology & Oncology
DX: Z12.11 Encounter for screening for malignant neoplasm of colon (principal); C90.00 Multiple myeloma not having achieved remission
CPT/HCPCS: 36415; 80053; 80076; 83735; 85025; 93005; 93010; 96401; J9041

== ENCOUNTER 2017-03-15 09:04 | Emergency (ER) | payer OTHER, BC, MEDICARE ==
[2017-03-15 09:25] VITALS: BMI 28.5
--- NOTE | 2017-03-15 10:04 | PDOC ---
History of Present Illness - General Chief Complaint: Respiratory Stated Complaint: RESPIRATORY DISTRESS Time Seen by Provider: 03/15/17 09:21 - History of Present Illness Initial Comments: 03/15/17 10:02 86yo woman from assisted living, PMH of afib (on coumadin), HTN, HLD, GERD, Multiple myeloma (on weekly Velcade), and Diabetes Mellitus who presents with 2 days of productive cough. Denies fever, chills. She went to see her pcp (Dr. Grimm) yesterday, who prescribed a medication that she has yet to orange picker. She reports continually coughing through out the night, which prompted her come to the ED. She complains of R rib pain when she coughs. Denies rhinorrhea, sore throat, fever, chills. No dysuria. She had a flu vaccine earlier in the season. Reports sick contacts at her assisted living. Oncologist: Dr. Marie PCP: Dr. Grimm Past History - Travel Traveled outside of the country in the last 30 days: No - Past Medical History Allergies/Adverse Reactions: Allergies Allergy/AdvReac Type Severity Reaction Status Date / Time No Known Allergies Allergy Verified 03/15/17 09:32 Home Medications: Ambulatory Orders Docusate Sodium [Dok] 100 mg PO HS 05/17/16 Gabapentin [Neurontin] 600 mg PO BID 05/17/16 Levothyroxine [Synthroid -] 75 mcg PO DAILY 05/17/16 Valacyclovir HCl [Valtrex -] 500 mg PO DAILY 05/17/16 Furosemide [Lasix -] 20 mg PO DAILY 06/23/16 Sennosides [Senna] 8.6 mg PO HS 06/23/16 Acetaminophen [Pain Relief] 650 mg PO QID PRN 01/03/17 Ammonium Lactate Lotion [Lac-Hydrin 12% Lotion -] 1 applic TP ASDIR 01/03/17 Atorvastatin Calcium 10 mg PO DAILY 01/03/17 Dexamethasone [Decadron -] 20 mg PO WE 01/03/17 Fluticasone Prop 0.05% Nasal [Flonase -] 2 spray NS DAILY 01/03/17 Pantoprazole Sodium [Protonix] 40 mg PO DAILY 01/03/17 Petrolatum,White [Aquaphor with Natural Healing] 0 gm TP ASDIR 01/03/17 Pramipexole Di-HCl [Mirapex] 0.25 mg PO HS 01/03/17 Warfarin Sodium [Coumadin] 5 mg PO SA 01/03/17 Warfarin Sodium [Coumadin] 7.5 mg PO SUMOTUWETH 01/03/17 Albuterol 0.083% Nebulizer Ivett [Ventolin 0.083%] 1 neb NEB Q4H PRN #1 vial 03/15 Levomefolate/B6/B12/Algal Oil [Foltanx Rf Capsule] 1 each PO DAILY 03/15/17 Metoprolol Succinate [Toprol Xl -] 25 mg PO DAILY 03/15/17 Petrolatum,White [Aquaphor with Natural Healing] 50 gm TP DAILY 03/15/17 Tramadol HCl 50 mg PO BID 2 Days #4 tablet MDD 100 03/15/17 Anemia: No Asthma: No Cancer: Yes (THYROID, MULTIPLE MYELOMA) Cardiac Disorders: Yes (afib/DVT) CVA: No COPD: No CHF: No Dementia: No Diabetes: Yes (NIDDM) GI Disorders: No Disorders: No HTN: Yes Hypercholesterolemia: Yes Liver Disease: No Seizures: No Thyroid Disease: Yes (thyroid cancer, thyroidectomy done in 1999) - Surgical History Abdominal Surgery: Yes (exploratory lap) - Immunization History Immunization Up to Date: No - Suicide/Smoking/Psychosocial Hx Smoking Status: No Smoking History: Former smoker Have you smoked in the past 12 months: No Number of Cigarettes Smoked Daily: 0 If you are a former smoker, when did you quit?: unable to remember Information on smoking cessation initiated: No Hx Alcohol Use: No Drug/Substance Use Hx: No Substance Use Type: None Hx Substance Use Treatment: No Review of Systems - Review of Systems Able to Perform ROS?: Yes Respiratory: Yes: See HPI, Productive cough Hematologic/Lymphatic: Yes: See HPI All Other Systems: Reviewed and Negative *Physical Exam - Vital Signs Last Vital Signs Temp Pulse Resp BP Pulse Ox 98.7 F 76 20 127/97 100 03/15/17 09:05 03/15/17 09:05 03/15/17 09:05 03/15/17 09:05 03/15/17 09:32 - Physical Exam General Appearance: Yes: Nourished HEENT: positive: Normal ENT Inspection, Pharynx Normal. negative: Rhinorrhea, Sinus Tenderness Neck: positive: Supple Respiratory/Chest: positive: Lungs Clear Cardiovascular: positive: Regular Rhythm, Regular Rate, S1, S2 Vascular Pulses: Dorsalis-Pedis (R): 2+, Doralis-Pedis (L): 2+ Gastrointestinal/Abdominal: positive: Soft. negative: Tender Musculoskeletal: positive: Other (R lower anterior R rib tender to palpation) Neurologic: positive: fryer line helper II-XII NML intact, Alert Heart Score/ECG Review - ECG Impressions Comment:: EKG performed at [9:55:43] demonstrates rate of [68], rhythm of [normal], axis equal to normal. no T wave inversions, no ST elevations 03/15/17 14:11 ED Treatment Course - LABORATORY CBC & Chemistry Diagram: 03/15/17 10:10 03/15/17 10:11 - RADIOLOGY Radiograph Interpretation: 03/15/17 11:43 EXAM#: TYPE/EXAM: RESULT: [id number] RAD/CHEST PA LAT Cough. Chest 2 views. Comparison study x-rays of the chest January 03, 2017. Unchanged contour of the cardiomediastinal silhouette. No evidence of pneumonia, atelectasis, CHF, pleural effusion or pneumothorax. Scoliosis of the thoracic spine. Demineralized osseous structures. No pneumothorax is seen. Impression. No evidence of pneumonia, CHF, pneumothorax, or pleural effusion. Please refer to the CT of the chest January 03, 2017 for additional findings. Medical Decision Making - Medical Decision Making 03/15/17 11:44 CBC, BMP 03/15/17 10:10 03/15/17 10:11 Troponin, BNP 03/15/17 03/15/17 10:10 10:11 Troponin I < 0.02 B-Natriuretic Peptide 402.67 INR, PTT INR 2.04 (0.82-1.09) H D 03/15/17 10:22 Microbiology 03/15/17 10:39 Nasopharyngeal Swab Influenza Types A,B Antigen (GAETANO) - NEGATIVE 03/15/17 10:39 Nasopharyngeal Swab - Final 03/15/17 11:46 03/15/17 12:38 Patient is afebrile with no leukocytosis. CXR unconcerning for PNA, and she is influenza negative. Physical exam is notable for lungs clear to ausculation bilaterally with no wheezing, rhonchi, or rales appreciated. R anterior rib pain exacerbated by cough is reproducible with palpation. Given negative Troponin, BNP wnl, and EKG w/o ischemic changes is unconcerning for ACS. She was given a duo nebulizer, which she reports improving her cough. Clinical picture most c/w with URI. Dr. Grimm's office notified, and plan discussed. Patient will be discharged home to [facility]. She can start the course of Levoquin as directed by Dr. Grimm. She is prescribed a Ventolin inhaler 1 puff q4h as needed for cough/sob and Tramadol 50mg BID for her rib/chest pain. Suggest room service for the next 2-3 days while convalescing at [facility]. 03/15/17 13:03 03/15/17 14:02 03/15/17 14:15 03/15/17 15:02 *DC/Admit/Observation/Transfer - Prescriptions Prescriptions: Albuterol 0.083% Nebulizer Ivett [Ventolin 0.083%] 1 neb NEB Q4H PRN #1 vial PRN Reason: Cough Tramadol HCl 50 mg PO BID 2 Days #4 tablet MDD 100 - Referrals Referrals: Alejandro Grimm MD [Primary Care Provider] - - Patient Instructions Additional Instructions: Please follow-up with your primary care doctor within 1 week. You have been prescribed an Albuterol inhaler. Take one puff that every 4hours as needed to help with your cough and breathing. You may take Tramadol 50mg twice per day as for the rib/chest pain as needed. Please return to the Emergency Department if you have new, worsening, or concerning symptoms. - Post Discharge Activity
--- NOTE | 2017-03-15 10:12 | PDOC ---
Attending Attestation - HPI HPI: 03/15/17 10:44 The patient is an 86 year old female from [facility] with a significant PMH of dementia, vertigo, AFIB, diabetes, HTN, hyperlipidemia, GERD , multiple myeloma, and former smoker who presents to the emergency department with a productive cough and right sided chest pain beginning approximately yesterday. The patient reports receiving the flu shot in December. Oncologist: Dr. Marie PCP: Dr. Grimm - Physicial Exam PE: 03/15/17 10:46 Vitals: Triage Vital signs reviewed General Appearance: no acute distress, well nourished well developed, Nose: Nares patent bilaterally;no nasal congestion Throat: Posterior oropharynx without erythema, mucous membranes moist, Chest Wall: Nontender Cardiac: Regular rate and rhythm, no murmurs, no rubs, no gallops, Lungs: Clear to auscultation bilateral, good air movement bilaterally, Abdomen: Soft, nondistended, normal bowel sounds, nontender to palpation Musculoskeletal: (+) Right lower anterior reproducible rib pain. Extremities: Full range of motion to all extremities, no cyanosis, clubbing, or edema Skin: Warm and dry, no rashes or lesions, no petechiae Neuro: AOX3; Cranial Nerves 2-12 grossly intact, Strength intact to all extremities, Sensation intact to all extremities. Psych: normal mood, normal affect - Medical Decision Making 03/15/17 10:44 Plan: Lab: CBC, CMP, N-terminal BNP, INR, Troponin I Cardiology: EKG Medications: Albuterol Microbiology: Influenza A & B rapid Radiology: Chest PA & LAT XR <Rohit Ohara - Last Filed: 03/15/17 10:46> - ED Attending Attestation I have performed the following: I have examined & evaluated the patient, The case was reviewed & discussed with the resident, I agree w/resident's findings & plan, Exceptions are as noted - Medical Decision Making 03/15/17 18:56 Well-appearing no apparent distress no fever no white count chest x-ray were known evidence of pneumonia Vital signs stable given nasal congestion cough history and examination most consistent with viral URI Status post Ventolin nebulizer treatment patient feels much better case discussed with assisted-living facility we'll transfer back she has primary care follow-up at the facility Findings, need for follow-up and strict return instructions discussed with patient. Non ischemic EKG negative troponin low suspicion for ACS <Antwan Last - Last Filed: 03/15/17 18:58> Heart Score/ECG Review #1 03/15/17 10:28 EKG performed at [9:55:43] demonstrates rate of [68], rhythm of [normal], axis equal to normal. no T wave inversions, no ST elevations <Rohit Ohara - Last Filed: 03/15/17 10:46>
[2017-03-15] MEDS ORDERED: ALBUTEROL SO4 2.5/IPRATROPIUM 0.5 INH SOL 3 ML VIAL.NEB. NEB ONE ×2 (10:17→10:23)
[2017-03-15 10:39] LABS: BASOPHIL 0.5 % (0-2.0); EOSINOPHIL 1.1 % (0-4.5); MCH 26.6 pg (25.7-33.7); MCHC 31.8 g/dl (32.0-36.0); MEAN CELL VOLUME 83.6 fl (80-96); MEAN PLT VOLUME 7.4 fl (7.5-11.1); NEUTROPHILS 74.1 % (42.8-82.8); PLATELET COUNT 185 K/MM3 (134-434); RDW 21.8 % (11.6-15.6); WHITE BLOOD COUNT 7.6 K/mm3 (4.0-10.0)
[2017-03-15 10:50] LABS: INR 2.04 (0.82-1.09); PROTHROMBIN TIME (PATIENT) 23.1 SEC (9.98-11.88)
[2017-03-15 11:05] LABS: ANION GAP 8 (8-16); BILIRUBIN,TOTAL 0.6 mg/dL (0.2-1.0); CALCIUM 8.4 mg/dL (8.5-10.1); CO2 29 mmol/L (21-32); CREATININE 0.9 mg/dL (0.55-1.02); GLUCOSE,RANDOM 73 mg/dL (74-106); SGOT/AST 17 U/L (15-37); SGPT/ALT 20 U/L (12-78); TOT PROT 5.7 g/dl (6.4-8.2)
[2017-03-15 11:07] LABS: ALK PHOS 49 U/L (45-117); TROPONIN I < 0.02 ng/ml (0.00-0.05)
[2017-03-15 15:19] VITALS: BP 129/62; PULSE 78; TEMP 99
[2017-03-15 15:44] LABS: ANISOCYTOSIS 2+; MICROCYTOSIS 2+
--- NOTE | 2017-03-16 12:11 | EKG ---
Test Reason : Blood Pressure : / mmHG Vent. Rate : 068 BPM Atrial Rate : 068 BPM P-R Int : 130 ms QRS Dur : 090 ms QT Int : 396 ms P-R-T Axes : 042 008 044 degrees QTc Int : 421 ms NORMAL SINUS RHYTHM POSSIBLE LEFT ATRIAL ENLARGEMENT RSR' OR QR PATTERN IN V1 SUGGESTS RIGHT VENTRICULAR CONDUCTION DELAY BORDERLINE ECG WHEN COMPARED WITH ECG OF 16-FEB-2017 10:40, NO SIGNIFICANT CHANGE WAS FOUND Confirmed by LINDA BEAN MD ([id number]) on 03/16/2017 12:10:56 PM Referred By: Confirmed By:LINDA BEAN MD
== END 2017-03-15 16:45 ==
LOC: JER 09:04
PROC: 3E0F7GC Introduction of Other Therapeutic Substance into Respiratory Tract, Via Natural or Artificial Opening (ICD-10-PCS; principal; 2017-03-15)
DX: J06.9 Acute upper respiratory infection, unspecified (principal); B97.89 Other viral agents as the cause of diseases classified elsewhere; I48.91 Unspecified atrial fibrillation; Z79.01 Long term (current) use of anticoagulants; I10 Essential (primary) hypertension; E78.00 Pure hypercholesterolemia, unspecified; E11.9 Type 2 diabetes mellitus without complications; C90.00 Multiple myeloma not having achieved remission; Z85.850 Personal history of malignant neoplasm of thyroid; E89.0 Postprocedural hypothyroidism
CPT/HCPCS: 36415; 71020-TC; 80053; 83880; 84484; 85025; 85610; 87804; 93005; 93010; 99283-25

== ENCOUNTER 2017-03-16 07:11 | Day surgery (SDC) | payer OTHER, BC, MEDICARE ==
[2017-03-16 09:21] LABS: BASOPHIL 0.4 % (0-2.0); EOSINOPHIL 0.3 % (0-4.5); MCH 27.2 pg (25.7-33.7); MCHC 32.5 g/dl (32.0-36.0); MEAN CELL VOLUME 83.8 fl (80-96); MEAN PLT VOLUME 7.5 fl (7.5-11.1); NEUTROPHILS 79.9 % (42.8-82.8); PLATELET COUNT 215 K/MM3 (134-434); RDW 21.7 % (11.6-15.6); WHITE BLOOD COUNT 7.7 K/mm3 (4.0-10.0)
[2017-03-16 09:53] LABS: ALK PHOS 53 U/L (45-117); ANION GAP 7 (8-16); BILIRUBIN,DIRECT 0.2 mg/dL (0.0-0.2); BILIRUBIN,TOTAL 0.6 mg/dL (0.2-1.0); CALCIUM 7.9 mg/dL (8.5-10.1); CO2 27 mmol/L (21-32); GLUCOSE,RANDOM 149 mg/dL (74-106); MAGNESIUM 2.2 mg/dL (1.8-2.4); SGOT/AST 29 U/L (15-37); SGPT/ALT 22 U/L (12-78); TOT PROT 5.9 g/dl (6.4-8.2)
[2017-03-16] MEDS ORDERED: BORTEZOMIB (VELCADE) 2.5 MG/ML SUB-Q INJECTION SQ ONE (10:00)
[2017-03-16 14:55] VITALS: BP 112/77; PULSE 80; TEMP 98
== END 2017-03-16 11:10 | disposition home or self-care (01) ==
LOC: JONCCHEMO 07:11 → J7W 10:43 → JONCCHEMO 11:10
PROVIDERS: ATTEND Internal Medicine Hematology & Oncology
DX: Z51.11 Encounter for antineoplastic chemotherapy (principal); C90.00 Multiple myeloma not having achieved remission
CPT/HCPCS: 36415; 80053; 80076; 83735; 85025; 96401; J9041

== ENCOUNTER 2017-03-30 07:28 | Day surgery (SDC) | payer OTHER, BC, MEDICARE ==
[2017-03-30] MEDS ORDERED: BORTEZOMIB (VELCADE) 2.5 MG/ML SUB-Q INJECTION SQ ONE (08:00)
[2017-03-30 09:37] LABS: BASOPHIL 0.9 % (0-2.0); MCH 27.2 pg (25.7-33.7); MEAN CELL VOLUME 85.1 fl (80-96); MEAN PLT VOLUME 7.7 fl (7.5-11.1); PLATELET COUNT 210 K/MM3 (134-434); RDW 21.9 % (11.6-15.6); WHITE BLOOD COUNT 4.2 K/mm3 (4.0-10.0)
[2017-03-30 10:01] LABS: ALBUMIN 3.1 g/dl (3.4-5.0); ANION GAP 6 (8-16); BILIRUBIN,DIRECT 0.2 mg/dL (0.0-0.2); CO2 28 mmol/L (21-32); GLUCOSE,RANDOM 104 mg/dL (74-106); SGOT/AST 22 U/L (15-37); SGPT/ALT 22 U/L (12-78)
[2017-03-30 10:02] LABS: ALK PHOS 49 U/L (45-117); BILIRUBIN,TOTAL 0.6 mg/dL (0.2-1.0); TOT PROT 5.6 g/dl (6.4-8.2)
[2017-03-30 16:20] VITALS: BP 134/76; PULSE 76; TEMP 99.2
== END 2017-03-30 10:40 | disposition home or self-care (01) ==
LOC: JONCCHEMO 07:28 → J7W 10:20 → JONCCHEMO 10:40
PROVIDERS: ATTEND Internal Medicine Hematology & Oncology
DX: Z51.11 Encounter for antineoplastic chemotherapy (principal); C90.00 Multiple myeloma not having achieved remission
CPT/HCPCS: 36415; 80053; 80076; 83735; 85025; 96401; J9041

== ENCOUNTER 2017-04-13 07:42 | Day surgery (SDC) | payer OTHER, BC, MEDICARE ==
[2017-04-13] MEDS ORDERED: BORTEZOMIB (VELCADE) 2.5 MG/ML SUB-Q INJECTION SQ ONE (08:00)
[2017-04-13 09:37] LABS: BASO % 0.7 % (0-2.0); EOS % 2.7 % (0-4.5); MCH 27.4 pg (25.7-33.7); MEAN CELL VOLUME 85.8 fl (80-96); MEAN PLT VOLUME 7.9 fl (7.5-11.1); NEUT % 81.3 % (42.8-82.8); PLATELET COUNT 218 K/MM3 (134-434); RDW 22.1 % (11.6-15.6); WHITE BLOOD COUNT 4.8 K/mm3 (4.0-10.0)
[2017-04-13 10:08] LABS: ALBUMIN 3.1 g/dl (3.4-5.0); ANION GAP 9 (8-16); BILIRUBIN,DIRECT 0.2 mg/dL (0.0-0.2); CALCIUM 8.4 mg/dL (8.5-10.1); CO2 26 mmol/L (21-32); GLUCOSE,RANDOM 106 mg/dL (74-106); MAGNESIUM 2.1 mg/dL (1.8-2.4); SGOT/AST 18 U/L (15-37); SGPT/ALT 20 U/L (12-78)
[2017-04-13 10:10] LABS: ALK PHOS 47 U/L (45-117); BILIRUBIN,TOTAL 0.7 mg/dL (0.2-1.0); TOT PROT 5.8 g/dl (6.4-8.2)
[2017-04-13 10:53] VITALS: BP 141/69; PULSE 69; TEMP 98.4
[2017-04-13 12:40] LABS: ANISOCYTOSIS 2+; HYPOCHROMIA 0; MACROCYTOSIS 0; MICROCYTOSIS 1+; POIKILOCYTOSIS 0; POLYCHROMASIA 0
== END 2017-04-13 10:15 | disposition home or self-care (01) ==
LOC: JONCCHEMO 07:42 → J7W 10:01 → JONCCHEMO 10:15
PROVIDERS: ATTEND Internal Medicine Hematology & Oncology
DX: Z51.11 Encounter for antineoplastic chemotherapy (principal); C90.00 Multiple myeloma not having achieved remission
CPT/HCPCS: 36415; 80053; 80076; 83735; 85025; 96401; J9041

== ENCOUNTER 2017-04-22 13:23 | Emergency (ER) | payer OTHER, BC, MEDICARE ==
[2017-04-22 15:22] VITALS: BP 107/52; PULSE 72; TEMP 99.3; BMI 28.5
--- NOTE | 2017-04-22 15:42 | PDOC ---
History of Present Illness - General Chief Complaint: Cold Symptoms Stated Complaint: COUGH/RIB PAIN History Source: Patient Exam Limitations: No Limitations - History of Present Illness Initial Comments: 04/22/17 16:08 This 86 yr old female with c/o cold symptoms that she has been treated for at her independant living by a physician starting yesterday however she now presents because she still has a cough and they wanted her to have a CXR. Pt was prescribed zpack, robitussin, flonase, and uses tylenol for pain. She is wheelchair bound and was giovani in via EMS NO fever. Past History - Past Medical History Allergies/Adverse Reactions: Allergies Allergy/AdvReac Type Severity Reaction Status Date / Time No Known Allergies Allergy Verified 03/15/17 09:32 Home Medications: Ambulatory Orders Gabapentin [Neurontin] 600 mg PO BID 05/17/16 Levothyroxine [Synthroid -] 75 mcg PO DAILY 05/17/16 Furosemide [Lasix -] 20 mg PO DAILY 06/23/16 Acetaminophen [Pain Relief] 650 mg PO QID PRN 01/03/17 Ammonium Lactate Lotion [Lac-Hydrin 12% Lotion -] 1 applic TP ASDIR 01/03/17 Atorvastatin Calcium 10 mg PO DAILY 01/03/17 Fluticasone Prop 0.05% Nasal [Flonase -] 2 spray NS DAILY 01/03/17 Pantoprazole Sodium [Protonix] 40 mg PO DAILY 01/03/17 Pramipexole Di-HCl [Mirapex] 0.25 mg PO HS 01/03/17 Warfarin Sodium [Coumadin] 5 mg PO SA 01/03/17 Warfarin Sodium [Coumadin] 7.5 mg PO SUMOTUWETH 01/03/17 Levomefolate/B6/B12/Algal Oil [Foltanx Rf Capsule] 1 each PO DAILY 03/15/17 Metoprolol Succinate [Toprol Xl -] 25 mg PO DAILY 03/15/17 Tramadol HCl 50 mg PO BID 2 Days #4 tablet MDD 100 03/15/17 Anemia: No Asthma: No Cancer: Yes (THYROID, MULTIPLE MYELOMA) Cardiac Disorders: Yes (afib/DVT) CVA: No COPD: No CHF: No Dementia: No Diabetes: Yes (NIDDM) GI Disorders: No Disorders: No HTN: Yes Hypercholesterolemia: Yes Liver Disease: No Seizures: No Thyroid Disease: Yes (thyroid cancer, thyroidectomy done in 1999) - Surgical History Abdominal Surgery: Yes (exploratory lap) - Immunization History Immunization Up to Date: No - Suicide/Smoking/Psychosocial Hx Smoking Status: No Smoking History: Former smoker Have you smoked in the past 12 months: No Number of Cigarettes Smoked Daily: 0 If you are a former smoker, when did you quit?: 1999 Information on smoking cessation initiated: No Hx Alcohol Use: No Drug/Substance Use Hx: No Substance Use Type: None Hx Substance Use Treatment: No Review of Systems - Review of Systems Able to Perform ROS?: Yes Constitutional: Yes: See HPI. No: Fever All Other Systems: Reviewed and Negative *Physical Exam - Vital Signs Last Vital Signs Temp Pulse Resp BP Pulse Ox 99.3 F 72 20 107/52 100 04/22/17 15:13 04/22/17 15:13 04/22/17 15:13 04/22/17 15:13 04/22/17 15:13 - Physical Exam HEENT: positive: Normal Voice Neck: positive: Trachea midline Respiratory/Chest: positive: Lungs Clear Cardiovascular: positive: Regular Rate Gastrointestinal/Abdominal: positive: Soft Extremity: positive: Normal Inspection Integumentary: positive: Dry, Warm Neurologic: positive: Fully Oriented, Alert Medical Decision Making - Medical Decision Making 04/22/17 16:20 Pt seen in [facility] with c/o cough and requesting a CXR after treated last even ig for a URI CXR ordered, lungs clear, no sob, no cough. discharged to follow up with her PCP *DC/Admit/Observation/Transfer Diagnosis at time of Disposition: Respiratory infection - Discharge Dispostion Disposition: HOME Condition at time of disposition: Stable Admit: No - Referrals Referrals: Alejandro Grimm MD [Primary Care Provider] - - Patient Instructions Printed Discharge Instructions: DI for Viral Upper Respiratory Infection-Child Additional Instructions: Discharge instructions 1. complete medications as prescribed by your doctor. 2. Please bring the report ot your doctor - Post Discharge Activity
== END 2017-04-22 16:32 | disposition home or self-care (01) ==
LOC: JERFT 13:23
DX: B99.9 Unspecified infectious disease (principal); Z85.850 Personal history of malignant neoplasm of thyroid; Z85.89 Personal history of malignant neoplasm of other organs and systems; I48.91 Unspecified atrial fibrillation; E11.9 Type 2 diabetes mellitus without complications; I10 Essential (primary) hypertension; E78.00 Pure hypercholesterolemia, unspecified
CPT/HCPCS: 71020-TC; 99281-25

== ENCOUNTER 2017-04-27 07:42 | Day surgery (SDC) | payer OTHER, BC, MEDICARE ==
[2017-04-27] MEDS ORDERED: BORTEZOMIB (VELCADE) 2.5 MG/ML SUB-Q INJECTION SQ ONE (10:00)
[2017-04-27 11:06] VITALS: PULSE 80
[2017-04-27 11:36] LABS: BASO % 0.3 % (0-2.0); EOS % 0.4 % (0-4.5); HEMATOCRIT 34.6 % (32.4-45.2); HEMOGLOBIN 11.1 GM/dL (10.7-15.3); LYMPH % 3.2 % (8-40); MCH 27.5 pg (25.7-33.7); MCHC 32.2 g/dl (32.0-36.0); MEAN CELL VOLUME 85.4 fl (80-96); MEAN PLT VOLUME 7.6 fl (7.5-11.1); MONO % 2.4 % (3.8-10.2); NEUT % 93.7 % (42.8-82.8); PLATELET COUNT 257 K/MM3 (134-434); RBC 4.05 M/mm3 (3.60-5.2); RDW 21.3 % (11.6-15.6); WHITE BLOOD COUNT 6.2 K/mm3 (4.0-10.0)
[2017-04-27 12:11] LABS: ALBUMIN 3.3 g/dl (3.4-5.0); ALK PHOS 53 U/L (45-117); ANION GAP 9 (8-16); BILIRUBIN,DIRECT 0.2 mg/dL (0.0-0.2); BILIRUBIN,TOTAL 0.5 mg/dL (0.2-1.0); BLOOD UREA NITROGEN 7 mg/dL (7-18); CALCIUM 8.9 mg/dL (8.5-10.1); CHLORIDE 108 mmol/L (98-107); CO2 25 mmol/L (21-32); CREATININE 0.8 mg/dL (0.55-1.02); GLUCOSE,RANDOM 91 mg/dL (74-106); MAGNESIUM 1.9 mg/dL (1.8-2.4); POTASSIUM 3.7 mmol/L (3.5-5.1); SGOT/AST 29 U/L (15-37); SGPT/ALT 24 U/L (12-78); SODIUM 142 mmol/L (136-145); TOT PROT 6.1 g/dl (6.4-8.2)
[2017-04-27 18:26] VITALS: BP 138/76; TEMP 98.7
== END 2017-04-27 13:45 | disposition home or self-care (01) ==
LOC: JONCCHEMO 07:42 → J7W 13:29 → JONCCHEMO 13:45
PROVIDERS: ATTEND Internal Medicine Hematology & Oncology
DX: Z51.11 Encounter for antineoplastic chemotherapy (principal); C90.00 Multiple myeloma not having achieved remission
CPT/HCPCS: 36415; 80053; 80076; 83735; 85025; 96361; 96367; 96401; 96413; J9041

== ENCOUNTER 2017-05-11 07:30 | Day surgery (SDC) | payer OTHER, BC, MEDICARE ==
[2017-05-11] MEDS ORDERED: BORTEZOMIB (VELCADE) 2.5 MG/ML SUB-Q INJECTION SQ ONE (10:00)
[2017-05-11] MEDS ORDERED: ZOLEDRONIC ACID 4 MG in SODIUM CHLORIDE 100 ML IVPB ONE (10:00)
[2017-05-11 10:45] LABS: BASO % 0.7 % (0-2.0); EOS % 2.3 % (0-4.5); HEMATOCRIT 33.9 % (32.4-45.2); HEMOGLOBIN 10.9 GM/dL (10.7-15.3); LYMPH % 7.6 % (8-40); MCH 27.8 pg (25.7-33.7); MCHC 32.1 g/dl (32.0-36.0); MEAN CELL VOLUME 86.6 fl (80-96); MEAN PLT VOLUME 7.8 fl (7.5-11.1); MONO % 4.7 % (3.8-10.2); NEUT % 84.7 % (42.8-82.8); PLATELET COUNT 208 K/MM3 (134-434); RBC 3.92 M/mm3 (3.60-5.2); RDW 20.8 % (11.6-15.6); WHITE BLOOD COUNT 5.1 K/mm3 (4.0-10.0)
[2017-05-11 10:55] LABS: ALBUMIN 3.3 g/dl (3.4-5.0); ALK PHOS 74 U/L (45-117); ANION GAP 7 (8-16); BILIRUBIN,DIRECT 0.2 mg/dL (0.0-0.2); BILIRUBIN,TOTAL 0.7 mg/dL (0.2-1.0); BLOOD UREA NITROGEN 9 mg/dL (7-18); CALCIUM 8.3 mg/dL (8.5-10.1); CHLORIDE 109 mmol/L (98-107); CO2 27 mmol/L (21-32); CREATININE 0.9 mg/dL (0.55-1.02); GLUCOSE,RANDOM 119 mg/dL (74-106); MAGNESIUM 1.9 mg/dL (1.8-2.4); POTASSIUM 3.7 mmol/L (3.5-5.1); SGOT/AST 22 U/L (15-37); SGPT/ALT 26 U/L (12-78); SODIUM 143 mmol/L (136-145); TOT PROT 6.1 g/dl (6.4-8.2)
[2017-05-11 14:00] VITALS: TEMP 98
[2017-05-11 14:13] VITALS: BP 131/67; PULSE 65
[2017-05-13 00:06] LABS: FREE KAPPA,SERUM 23.6 mg/L (3.3-19.4)
[2017-05-17 16:29] LABS: KAPPA/LAMBDA RATIO, UR 13.58 (2.04-10.37)
== END 2017-05-11 13:55 | disposition home or self-care (01) ==
LOC: JONCCHEMO 07:30 → J7W 12:20 → JONCCHEMO 13:55
PROVIDERS: ATTEND Internal Medicine Hematology & Oncology
PROC: 3E01305 Introduction of Other Antineoplastic into Subcutaneous Tissue, Percutaneous Approach (ICD-10-PCS; principal; 2017-05-11)
PROC: 3E033GC Introduction of Other Therapeutic Substance into Peripheral Vein, Percutaneous Approach (ICD-10-PCS; 2017-05-11)
DX: Z51.11 Encounter for antineoplastic chemotherapy (principal); C90.00 Multiple myeloma not having achieved remission
CPT/HCPCS: 36415; 77074-TC; 80053; 80076; 82232; 82784; 83735; 83883; 84155; 84165; 85025; 86334; 86335; 96365; 96401; 96417; J9041

== ENCOUNTER 2017-05-25 07:16 | Day surgery (SDC) | payer OTHER, BC, MEDICARE ==
[2017-05-25] MEDS ORDERED: BORTEZOMIB (VELCADE) 2.5 MG/ML SUB-Q INJECTION SQ ONE (08:00)
[2017-05-25 09:23] LABS: BASO % 0.6 % (0-2.0); HEMOGLOBIN 10.9 GM/dL (10.7-15.3); MCH 27.8 pg (25.7-33.7); MEAN CELL VOLUME 86.9 fl (80-96); MEAN PLT VOLUME 7.8 fl (7.5-11.1); MONO % 13.7 % (3.8-10.2); NEUT % 74.7 % (42.8-82.8); PLATELET COUNT 221 K/MM3 (134-434); RBC 3.91 M/mm3 (3.60-5.2); RDW 20.4 % (11.6-15.6); WHITE BLOOD COUNT 5.3 K/mm3 (4.0-10.0)
[2017-05-25 09:55] LABS: ALBUMIN 3.2 g/dl (3.4-5.0); ANION GAP 10 (8-16); BILIRUBIN,DIRECT 0.2 mg/dL (0.0-0.2); BLOOD UREA NITROGEN 11 mg/dL (7-18); CALCIUM 8.7 mg/dL (8.5-10.1); CHLORIDE 106 mmol/L (98-107); CO2 28 mmol/L (21-32); GLUCOSE,RANDOM 126 mg/dL (74-106); MAGNESIUM 1.9 mg/dL (1.8-2.4); POTASSIUM 3.4 mmol/L (3.5-5.1); SGOT/AST 21 U/L (15-37); SGPT/ALT 24 U/L (12-78); SODIUM 144 mmol/L (136-145); TOT PROT 6.1 g/dl (6.4-8.2)
[2017-05-25 09:56] LABS: ALK PHOS 70 U/L (45-117); BILIRUBIN,TOTAL 0.6 mg/dL (0.2-1.0)
[2017-05-25] MEDS ORDERED: POTASSIUM CHLORIDE TABS 20 MEQ TABLET.ER (FP) PO ONE (11:15)
[2017-05-25 12:09] VITALS: BP 122/50; PULSE 75; TEMP 98
== END 2017-05-25 11:30 | disposition home or self-care (01) ==
LOC: JONCCHEMO 07:16 → J7W 10:38 → JONCCHEMO 11:30
PROVIDERS: ATTEND Internal Medicine Hematology & Oncology
DX: Z51.11 Encounter for antineoplastic chemotherapy (principal); C90.00 Multiple myeloma not having achieved remission
CPT/HCPCS: 36415; 80053; 80076; 83735; 85025; 96401; J9041

== ENCOUNTER 2017-06-08 07:32 | Day surgery (SDC) | payer OTHER, BC, MEDICARE ==
[2017-06-08] MEDS ORDERED: BORTEZOMIB (VELCADE) 2.5 MG/ML SUB-Q INJECTION SQ ONE (08:00)
[2017-06-08 09:01] LABS: BASO % 0.6 % (0-2.0); HEMATOCRIT 36.6 % (32.4-45.2); HEMOGLOBIN 11.8 GM/dL (10.7-15.3); LYMPH % 7.1 % (8-40); MCH 27.7 pg (25.7-33.7); MCHC 32.1 g/dl (32.0-36.0); MEAN CELL VOLUME 86.3 fl (80-96); MEAN PLT VOLUME 7.8 fl (7.5-11.1); MONO % 11.8 % (3.8-10.2); NEUT % 77.5 % (42.8-82.8); PLATELET COUNT 217 K/MM3 (134-434); RBC 4.25 M/mm3 (3.60-5.2); RDW 20.3 % (11.6-15.6); WHITE BLOOD COUNT 5.5 K/mm3 (4.0-10.0)
[2017-06-08 09:31] LABS: ALBUMIN 3.4 g/dl (3.4-5.0); ANION GAP 6 (8-16); BLOOD UREA NITROGEN 13 mg/dL (7-18); CALCIUM 8.2 mg/dL (8.5-10.1); CHLORIDE 106 mmol/L (98-107); CO2 29 mmol/L (21-32); GLUCOSE,RANDOM 77 mg/dL (74-106); MAGNESIUM 2.2 mg/dL (1.8-2.4); POTASSIUM 3.4 mmol/L (3.5-5.1); SODIUM 141 mmol/L (136-145)
[2017-06-08 09:34] LABS: ALK PHOS 58 U/L (45-117); BILIRUBIN,TOTAL 0.5 mg/dL (0.2-1.0); CREATININE 0.8 mg/dL (0.55-1.02); SGOT/AST 18 U/L (15-37); SGPT/ALT 25 U/L (12-78)
[2017-06-08 09:51] LABS: ALBUMIN 3.4 g/dl (3.4-5.0); ALK PHOS 60 U/L (45-117); BILIRUBIN,DIRECT < 0.2 mg/dL (0.0-0.2); BILIRUBIN,TOTAL 0.6 mg/dL (0.2-1.0); SGOT/AST 18 U/L (15-37); SGPT/ALT 26 U/L (12-78); TOT PROT 6.1 g/dl (6.4-8.2)
[2017-06-08 11:25] VITALS: TEMP 97.7
[2017-06-08] MEDS ORDERED: POTASSIUM CHLORIDE TABS 20 MEQ TABLET.ER (FP) PO ONE (11:30)
[2017-06-08 16:47] VITALS: BP 116/58; PULSE 71
== END 2017-06-08 11:45 | disposition home or self-care (01) ==
LOC: JONCCHEMO 07:32 → J7W 10:48 → JONCCHEMO 11:45
PROVIDERS: ATTEND Internal Medicine Hematology & Oncology
DX: Z51.11 Encounter for antineoplastic chemotherapy (principal); C90.00 Multiple myeloma not having achieved remission
CPT/HCPCS: 36415; 80053; 80076; 83735; 85025; 96401; J9041

== ENCOUNTER 2017-06-11 03:04 | Emergency (ER) | payer OTHER, BC, MEDICARE ==
[2017-06-11 03:40] VITALS: TEMP 97.9; BMI 30.2
--- NOTE | 2017-06-11 04:04 | PDOC ---
Attending Attestation - Resident Resident Name: Ferny Little - ED Attending Attestation I have performed the following: I have examined & evaluated the patient, The case was reviewed & discussed with the resident, I agree w/resident's findings & plan - HPI HPI: 06/11/17 06:30 Pt comes with headache that woke her from sleep. - Physicial Exam PE: 06/11/17 06:30 Agree with resident's exam. - Medical Decision Making 06/11/17 06:25 Patient Name: ARTURO VALDEZ THIS IS A PRELIMINARY REPORT FROM [facility] DATE OF SERVICE: 2017-06-11 05:33:04 IMAGES: 136 EXAM: HEAD CT WITHOUT CONTRAST HISTORY: Headache COMPARISON: None. FINDINGS: Brain parenchyma is normal in attenuation with no mass or hematoma. There is no midline shift. Tang and white matter differentiation is normal. Ventricles are normal. Sulci and extra-axial CSF spaces are normal. Intracranial vascular structures are normal in attenuation. There is no calvarial fracture. Paranasal sinuses are normally aerated. IMPRESSION: Normal head THIS DOCUMENT HAS BEEN ELECTRONICALLY SIGNED
--- NOTE | 2017-06-11 04:12 | PDOC ---
History of Present Illness - General Chief Complaint: Headache Stated Complaint: HEADACHE W/NAUSEA Time Seen by Provider: 06/11/17 03:39 History Source: Patient Exam Limitations: No Limitations - History of Present Illness Initial Comments: 06/11/17 07:03 87yo woman from assisted living, PMH of afib (on coumadin), HTN, HLD, GERD, Multiple myeloma (on weekly Velcade), and Diabetes Mellitus who presents with some dizziness earlier today and headache, now resolved upon presentation. Patient was worried as she's had episodes of vertigo Past History - Past Medical History Allergies/Adverse Reactions: Allergies Allergy/AdvReac Type Severity Reaction Status Date / Time No Known Allergies Allergy Verified 06/11/17 03:34 Home Medications: Ambulatory Orders Gabapentin [Neurontin] 600 mg PO BID 05/17/16 Levothyroxine [Synthroid -] 75 mcg PO DAILY 05/17/16 Furosemide [Lasix -] 20 mg PO DAILY 06/23/16 Acetaminophen [Pain Relief] 650 mg PO QID PRN 01/03/17 Atorvastatin Calcium 10 mg PO DAILY 01/03/17 Fluticasone Prop 0.05% Nasal [Flonase -] 2 spray NS DAILY 01/03/17 Pantoprazole Sodium [Protonix] 40 mg PO DAILY 01/03/17 Pramipexole Di-HCl [Mirapex] 0.25 mg PO HS 01/03/17 Warfarin Sodium [Coumadin] 5 mg PO SA 01/03/17 Warfarin Sodium [Coumadin] 7.5 mg PO SUMOTUWETHFR 01/03/17 Levomefolate/B6/B12/Algal Oil [Foltanx Rf Capsule] 1 each PO DAILY 03/15/17 Metoprolol Succinate [Toprol Xl -] 25 mg PO DAILY 03/15/17 Anemia: No Asthma: No Cancer: Yes (THYROID, MULTIPLE MYELOMA) Cardiac Disorders: Yes (afib/DVT) CVA: No COPD: No CHF: No Dementia: No Diabetes: Yes (NIDDM) GI Disorders: No Disorders: No HTN: Yes Hypercholesterolemia: Yes Liver Disease: No Seizures: No Thyroid Disease: Yes (thyroid cancer, thyroidectomy done in 1999) - Surgical History Abdominal Surgery: Yes (exploratory lap) - Immunization History Immunization Up to Date: No - Suicide/Smoking/Psychosocial Hx Smoking Status: No Smoking History: Former smoker Have you smoked in the past 12 months: No Number of Cigarettes Smoked Daily: 0 If you are a former smoker, when did you quit?: 1999 Information on smoking cessation initiated: No Hx Alcohol Use: No Drug/Substance Use Hx: No Substance Use Type: None Hx Substance Use Treatment: No *Physical Exam - Vital Signs Last Vital Signs Temp Pulse Resp BP Pulse Ox 97.9 F 75 18 116/64 100 06/11/17 03:39 06/11/17 03:39 06/11/17 03:39 06/11/17 03:39 06/11/17 03:39 ED Treatment Course - LABORATORY CBC & Chemistry Diagram: 06/11/17 06:52 06/11/17 06:52 Medical Decision Making - Medical Decision Making 06/11/17 07:[address] head negative. Basic labs pending. Patient signed out to Dr. Anne. *DC/Admit/Observation/Transfer Diagnosis at time of Disposition: Headache - Referrals Referrals: Alejandro Grimm MD [Primary Care Provider] - - Patient Instructions - Post Discharge Activity
[2017-06-11] MEDS ORDERED: ACETAMINOPHEN 325 MG TABLET (FP) PO ONE (06:29)
[2017-06-11] MEDS ORDERED: ACETAMINOPHEN 325 MG TABLET (FP) ONE (07:01)
[2017-06-11 07:03] LABS: BASO % 0.7 % (0-2.0); EOS % 2.4 % (0-4.5); HEMATOCRIT 35.3 % (32.4-45.2); HEMOGLOBIN 11.5 GM/dL (10.7-15.3); LYMPH % 11.3 % (8-40); MCH 28.2 pg (25.7-33.7); MCHC 32.4 g/dl (32.0-36.0); MEAN PLT VOLUME 7.5 fl (7.5-11.1); MONO % 13.8 % (3.8-10.2); NEUT % 71.8 % (42.8-82.8); PLATELET COUNT 175 K/MM3 (134-434); RBC 4.06 M/mm3 (3.60-5.2); RDW 20.2 % (11.6-15.6); WHITE BLOOD COUNT 5.6 K/mm3 (4.0-10.0)
--- NOTE | 2017-06-11 08:26 | PDOC ---
*Physical Exam - Vital Signs Last Vital Signs Temp Pulse Resp BP Pulse Ox 97.9 F 75 18 116/64 100 06/11/17 03:39 06/11/17 03:39 06/11/17 03:39 06/11/17 03:39 06/11/17 03:39 ED Treatment Course - LABORATORY CBC & Chemistry Diagram: 06/11/17 06:52 06/11/17 08:20 - ADDITIONAL ORDERS Additional order review: Laboratory Results 06/11/17 06:52 Sodium Cancelled Potassium Cancelled Chloride Cancelled Carbon Dioxide Cancelled Anion Gap Cancelled BUN Cancelled Creatinine Cancelled Creat Clearance w eGFR Cancelled Random Glucose Cancelled Calcium Cancelled Total Bilirubin Cancelled AST Cancelled ALT Cancelled Alkaline Phosphatase Cancelled Total Protein Cancelled Albumin Cancelled 06/11/17 06:52 RBC 4.06 MCV 87.0 MCHC 32.4 RDW 20.2 H MPV 7.5 Neutrophils % 71.8 Lymphocytes % 11.3 D Monocytes % 13.8 H Eosinophils % 2.4 Basophils % 0.7 - Medications Given in the ED: ED Medications Discontinued Medications Generic Name Dose Route Start Last Admin Trade Name Terence PRN Reason Stop Dose Admin Acetaminophen 650 mg 06/11/17 06:29 06/11/17 07:05 Tylenol - PO 06/11/17 06:30 650 mg ONCE ONE Administration Medical Decision Making - Medical Decision Making 06/11/17 08:24 The patient was signed out to me by Dr. Little, night team. The patient is an 87F who presents with dizziness and headaches. CT negative. Pending labs and likely disposition is home. 06/11/17 09:18 Pending repeat CMP. Pt states her symptoms have resolved. 06/11/17 10:30 CMP WNL. Pt states she feels much better and is ready for d/c. 06/11/17 12:01 UA negative. Pt will go home. *DC/Admit/Observation/Transfer Diagnosis at time of Disposition: Headache Qualifiers: Headache type: other headache syndrome Qualified Code(s): G44.89 - Other headache syndrome - Discharge Dispostion Disposition: HOME Condition at time of disposition: Stable Admit: No - Referrals Referrals: Alejandro Grimm MD [Primary Care Provider] - - Patient Instructions Printed Discharge Instructions: Dizziness, Nonvertigo Additional Instructions: Please return to the ER if symptoms persist, worsen, or new symptoms arise. Please follow up with your primary care physician in 2-3 days. Please return to the ER if you have any signs or symptoms of chest pain, shortness of breath, uncontrollable fever, chills, nausea, vomiting, numbness, tingling, or weakness in any part of your body, changes in vision, or slurred speech. - Post Discharge Activity
[2017-06-11 09:41] LABS: ALBUMIN 3.1 g/dl (3.4-5.0); ALK PHOS 59 U/L (45-117); ANION GAP 7 (8-16); BILIRUBIN,TOTAL 0.4 mg/dL (0.2-1.0); BLOOD UREA NITROGEN 13 mg/dL (7-18); CALCIUM 8.1 mg/dL (8.5-10.1); CHLORIDE 105 mmol/L (98-107); CO2 27 mmol/L (21-32); GLUCOSE,RANDOM 83 mg/dL (74-106); POTASSIUM 3.6 mmol/L (3.5-5.1); SGOT/AST 21 U/L (15-37); SGPT/ALT 21 U/L (12-78); SODIUM 139 mmol/L (136-145); TOT PROT 5.7 g/dl (6.4-8.2)
[2017-06-11 11:35] LABS: URINE APPEARANCE CLEAR; URINE BILIRUBIN NEGATIVE (NEGATIVE); URINE BLOOD NEGATIVE (NEGATIVE); URINE COLOR LTYELLOW; URINE GLUCOSE (UA) NEGATIVE (NEGATIVE); URINE KETONE NEGATIVE (NEGATIVE); URINE LEUK ESTERASE NEGATIVE (NEGATIVE); URINE NITRITE NEGATIVE (NEGATIVE); URINE PROTEIN NEGATIVE (NEGATIVE); URINE UROBILINOGEN NEGATIVE mg/dL (0.2-1.0)
[2017-06-11 12:38] VITALS: BP 118/72; PULSE 74
== END 2017-06-11 12:38 | disposition home or self-care (01) ==
LOC: JER 03:04
DX: G44.89 Other headache syndrome (principal); I48.91 Unspecified atrial fibrillation; Z79.01 Long term (current) use of anticoagulants; I10 Essential (primary) hypertension; E78.00 Pure hypercholesterolemia, unspecified; K21.9 Gastro-esophageal reflux disease without esophagitis; Z86.718 Personal history of other venous thrombosis and embolism; E11.9 Type 2 diabetes mellitus without complications; Z85.850 Personal history of malignant neoplasm of thyroid; C90.00 Multiple myeloma not having achieved remission; E89.0 Postprocedural hypothyroidism
CPT/HCPCS: 36415; 70450-TC; 80053; 81003; 85025; 87086; 99283-25

== ENCOUNTER 2017-06-22 07:37 | Day surgery (SDC) | payer OTHER, BC, MEDICARE ==
[2017-06-22] MEDS ORDERED: BORTEZOMIB (VELCADE) 2.5 MG/ML SUB-Q INJECTION SQ ONE (10:00)
[2017-06-22 11:02] LABS: BASO % 0.4 % (0-2.0); EOS % 3.5 % (0-4.5); HEMATOCRIT 35.1 % (32.4-45.2); HEMOGLOBIN 11.1 GM/dL (10.7-15.3); LYMPH % 4.8 % (8-40); MCH 27.3 pg (25.7-33.7); MCHC 31.6 g/dl (32.0-36.0); MEAN CELL VOLUME 86.6 fl (80-96); MEAN PLT VOLUME 7.7 fl (7.5-11.1); MONO % 4.6 % (3.8-10.2); NEUT % 86.7 % (42.8-82.8); PLATELET COUNT 194 K/MM3 (134-434); RBC 4.05 M/mm3 (3.60-5.2); RDW 20.2 % (11.6-15.6); WHITE BLOOD COUNT 5.3 K/mm3 (4.0-10.0)
[2017-06-22 11:31] VITALS: BP 116/57; PULSE 65; TEMP 98.2
[2017-06-22 11:36] LABS: ALBUMIN 3.3 g/dl (3.4-5.0); ALK PHOS 53 U/L (45-117); ANION GAP 6 (8-16); BILIRUBIN,DIRECT 0.2 mg/dL (0.0-0.2); BILIRUBIN,TOTAL 0.6 mg/dL (0.2-1.0); BLOOD UREA NITROGEN 11 mg/dL (7-18); CALCIUM 7.9 mg/dL (8.5-10.1); CHLORIDE 104 mmol/L (98-107); CO2 29 mmol/L (21-32); CREATININE 0.9 mg/dL (0.55-1.02); GLUCOSE,RANDOM 70 mg/dL (74-106); LDH 289 U/L (84-246); MAGNESIUM 2.2 mg/dL (1.8-2.4); POTASSIUM 3.4 mmol/L (3.5-5.1); SGOT/AST 20 U/L (15-37); SGPT/ALT 23 U/L (12-78); SODIUM 139 mmol/L (136-145)
[2017-06-22] MEDS ORDERED: POTASSIUM CHLORIDE TABS 20 MEQ TABLET.ER (FP) PO ONE (12:15)
[2017-06-24 00:10] LABS: FREE KAPPA,SERUM 31.1 mg/L (3.3-19.4)
== END 2017-06-22 11:30 | disposition home or self-care (01) ==
LOC: JONCCHEMO 07:37 → J7W 11:21 → JONCCHEMO 11:30
PROVIDERS: ATTEND Internal Medicine Hematology & Oncology
DX: Z51.11 Encounter for antineoplastic chemotherapy (principal); C90.00 Multiple myeloma not having achieved remission
CPT/HCPCS: 36415; 80053; 80076; 83615; 83735; 83883; 84156; 84157; 84550; 85025; 96401; J9041

== ENCOUNTER 2017-07-06 07:17 | Day surgery (SDC) | payer OTHER, BC, MEDICARE ==
[2017-07-06 09:54] LABS: URINE APPEARANCE CLEAR; URINE BILIRUBIN NEGATIVE (NEGATIVE); URINE BLOOD NEGATIVE (NEGATIVE); URINE COLOR LTYELLOW; URINE GLUCOSE (UA) NEGATIVE (NEGATIVE); URINE KETONE NEGATIVE (NEGATIVE); URINE LEUK ESTERASE NEGATIVE (NEGATIVE); URINE NITRITE NEGATIVE (NEGATIVE); URINE PROTEIN NEGATIVE (NEGATIVE); URINE UROBILINOGEN NEGATIVE mg/dL (0.2-1.0)
[2017-07-06 09:54] LABS: BASO % 0.9 % (0-2.0); EOS % 5.4 % (0-4.5); HEMATOCRIT 31.6 % (32.4-45.2); HEMOGLOBIN 10.7 GM/dL (10.7-15.3); LYMPH % 8.7 % (8-40); MCH 29.2 pg (25.7-33.7); MCHC 33.8 g/dl (32.0-36.0); MEAN CELL VOLUME 86.3 fl (80-96); MEAN PLT VOLUME 8.3 fl (7.5-11.1); MONO % 13.3 % (3.8-10.2); NEUT % 71.7 % (42.8-82.8); PLATELET COUNT 202 K/MM3 (134-434); RBC 3.67 M/mm3 (3.60-5.2); RDW 19.9 % (11.6-15.6)
[2017-07-06] MEDS ORDERED: BORTEZOMIB (VELCADE) 2.5 MG/ML SUB-Q INJECTION SQ ONE (10:00)
[2017-07-06 10:17] LABS: ALBUMIN 2.8 g/dl (3.4-5.0); ALK PHOS 44 U/L (45-117); ANION GAP 12 (8-16); BILIRUBIN,TOTAL 0.8 mg/dL (0.2-1.0); BLOOD UREA NITROGEN 8 mg/dL (7-18); CALCIUM 8.6 mg/dL (8.5-10.1); CHLORIDE 105 mmol/L (98-107); CO2 25 mmol/L (21-32); CREATININE 0.9 mg/dL (0.55-1.02); GLUCOSE,RANDOM 94 mg/dL (74-106); POTASSIUM 3.6 mmol/L (3.5-5.1); SGOT/AST 19 U/L (15-37); SGPT/ALT 20 U/L (12-78); SODIUM 142 mmol/L (136-145); TOT PROT 5.7 g/dl (6.4-8.2)
[2017-07-06 12:13] LABS: ALBUMIN 2.9 g/dl (3.4-5.0); BILIRUBIN,DIRECT 0.2 mg/dL (0.0-0.2)
[2017-07-06 12:15] LABS: BILIRUBIN,TOTAL 0.7 mg/dL (0.2-1.0); TOT PROT 5.6 g/dl (6.4-8.2)
[2017-07-06 14:23] VITALS: BP 126/57; PULSE 59; TEMP 98.3
== END 2017-07-06 11:00 | disposition home or self-care (01) ==
LOC: JONCCHEMO 07:17 → J7W 10:29 → JONCCHEMO 11:00
PROVIDERS: ATTEND Internal Medicine Hematology & Oncology
DX: Z51.11 Encounter for antineoplastic chemotherapy (principal); C90.00 Multiple myeloma not having achieved remission
CPT/HCPCS: 36415; 80053; 80076; 81003; 85025; 87086; 96401; J9041

== ENCOUNTER 2017-07-14 15:44 | Emergency (ER) | payer OTHER, BC, MEDICARE ==
[2017-07-14 16:56] VITALS: BP 133/57; PULSE 55; BMI 27.8
[2017-07-14 17:13] LABS: BASO % 0.4 % (0-2.0); EOS % 0.4 % (0-4.5); HEMATOCRIT 31.5 % (32.4-45.2); HEMOGLOBIN 10.5 GM/dL (10.7-15.3); MCH 29.1 pg (25.7-33.7); MCHC 33.3 g/dl (32.0-36.0); MEAN CELL VOLUME 87.2 fl (80-96); MEAN PLT VOLUME 8.2 fl (7.5-11.1); MONO % 17.3 % (3.8-10.2); NEUT % 70.9 % (42.8-82.8); PLATELET COUNT 218 K/MM3 (134-434); RBC 3.61 M/mm3 (3.60-5.2); RDW 19.6 % (11.6-15.6); WHITE BLOOD COUNT 5.2 K/mm3 (4.0-10.0)
--- NOTE | 2017-07-14 17:19 | PDOC ---
Attending Attestation - Resident Resident Name: FrankIglesia frances - ED Attending Attestation I have performed the following: I have examined & evaluated the patient, The case was reviewed & discussed with the resident, I agree w/resident's findings & plan, Exceptions are as noted - HPI HPI: 07/14/17 17:14 87y/o F h/o MM on weekly chemo regimen, HTN, h/o DVT on coumadin p/w a dew days of worsening b/l foot and leg swelling. no pain, no cardiopulmonary complaints, no f/c/cough. swelling was initially worse at night, better in morning, but now worse and persistent. - Physicial Exam PE: 07/14/17 17:17 VSS, T 98.3, sinus jonathan at 48 well appearing, pleasant elderly lady no jvd, lungs clear abd soft 2+ b/l edema to knees, some ttp LLE, easily palpable distal pulses with brisk cap refill - Medical Decision Making 07/14/17 17:18 87y/o F h/o MM and DVT on coumadin p/w b/l leg swelling and discomfort. no cardiopulmonary complaints or VS abnormalities to suggest PE. NAD. labs: check renal function b/l dopplers, cxr ekg reassess, discuss dispo with Dr. Grimm/Frank 07/14/17 20:31 Labs are at baseline, hemoglobin 10, baseline albumin, normal creatinine of 1. INR is therapeutic. BNP is minimally elevated at 600, CXR shows no acute pathology. Pt feels well, agrees with d/c plan and f/u with Alejandra. Understands return criteria. 07/14/17 20:56 Case d/w Dr. Grimm, agrees with d/c plan and will see the pt in office on Tuesday.
[2017-07-14 17:25] LABS: INR 2.96 (0.82-1.09); PROTHROMBIN TIME (PATIENT) 33.5 SEC (9.98-11.88)
[2017-07-14 17:49] LABS: ALBUMIN 2.9 g/dl (3.4-5.0); ANION GAP 10 (8-16); BILIRUBIN,TOTAL 0.3 mg/dL (0.2-1.0); BLOOD UREA NITROGEN 21 mg/dL (7-18); CALCIUM 8.7 mg/dL (8.5-10.1); CHLORIDE 107 mmol/L (98-107); CO2 27 mmol/L (21-32); GLUCOSE,RANDOM 100 mg/dL (74-106); MAGNESIUM 2.3 mg/dL (1.8-2.4); POTASSIUM 3.7 mmol/L (3.5-5.1); SGOT/AST 20 U/L (15-37); SODIUM 144 mmol/L (136-145); TOT PROT 5.6 g/dl (6.4-8.2)
[2017-07-14 17:52] LABS: ALK PHOS 48 U/L (45-117); N-TERMINAL BNP 668.13 pg/ml (5-450); SGPT/ALT 26 U/L (12-78)
--- NOTE | 2017-07-14 17:58 | PDOC ---
History of Present Illness - General History Source: Patient Exam Limitations: No Limitations - History of Present Illness Initial Comments: 07/14/17 17:49 Patient is an 87F with history of afib (on coumadin), HTN, HLD, GERD, Multiple myeloma on chemo, DVT and DM here today complaining of bilateral leg swelling for the past two days. She denies chest pain, shortness of breath. She denies changes in urination. She denies fever, chills, nausea and vomiting. Denies redness in her legs. Denies leg pain. Patient is currently on chemo, taking daily pills and weekly infusions. She has not had any issues. <Iglesia Bee - Last Filed: 07/14/17 19:24> <Silvino Alvarado - Last Filed: 07/14/17 20:31> - General Chief Complaint: Edema Stated Complaint: FLUID IN ANKLES Time Seen by Provider: 07/14/17 16:02 Past History - Past Medical History Anemia: No Asthma: No Cancer: Yes (THYROID, MULTIPLE MYELOMA) Cardiac Disorders: Yes (afib/DVT) CVA: No COPD: No CHF: No Dementia: No Diabetes: Yes (NIDDM) GI Disorders: No Disorders: No HTN: Yes Hypercholesterolemia: Yes Liver Disease: No Seizures: No Thyroid Disease: Yes (thyroid cancer, thyroidectomy done in 1999) - Surgical History Abdominal Surgery: Yes (exploratory lap) - Immunization History Immunization Up to Date: No - Suicide/Smoking/Psychosocial Hx Smoking Status: No Smoking History: Former smoker Have you smoked in the past 12 months: No Number of Cigarettes Smoked Daily: 0 If you are a former smoker, when did you quit?: 25 yrs ago Information on smoking cessation initiated: No Hx Alcohol Use: Yes (social) Drug/Substance Use Hx: No Substance Use Type: None Hx Substance Use Treatment: No <Iglesia Bee - Last Filed: 07/14/17 19:24> <Silvino Alvarado - Last Filed: 07/14/17 20:31> - Past Medical History Allergies/Adverse Reactions: Allergies Allergy/AdvReac Type Severity Reaction Status Date / Time No Known Allergies Allergy Verified 06/11/17 03:34 Home Medications: Ambulatory Orders Gabapentin [Neurontin] 600 mg PO BID 05/17/16 Levothyroxine [Synthroid -] 75 mcg PO DAILY 05/17/16 Furosemide [Lasix -] 20 mg PO DAILY 06/23/16 Acetaminophen [Pain Relief] 650 mg PO QID PRN 01/03/17 Atorvastatin Calcium 10 mg PO DAILY 01/03/17 Fluticasone Prop 0.05% Nasal [Flonase -] 2 spray NS DAILY 01/03/17 Pantoprazole Sodium [Protonix] 40 mg PO DAILY 01/03/17 Pramipexole Di-HCl [Mirapex] 0.25 mg PO HS 01/03/17 Warfarin Sodium [Coumadin] 5 mg PO SA 01/03/17 Warfarin Sodium [Coumadin] 7.5 mg PO SUMOTUWETHFR 01/03/17 Levomefolate/B6/B12/Algal Oil [Foltanx Rf Capsule] 1 each PO DAILY 03/15/17 Metoprolol Succinate [Toprol XL -] 25 mg PO DAILY 03/15/17 Review of Systems - Review of Systems Comments:: 07/14/17 18:02 GENERAL/CONSTITUTIONAL: No fever or chills. No weakness. HEAD, EYES, EARS, NOSE AND THROAT: No change in vision. No sore throat. CARDIOVASCULAR: No chest pain or shortness of breath RESPIRATORY: No cough, wheezing, or hemoptysis. GASTROINTESTINAL: No nausea, vomiting, diarrhea or constipation. GENITOURINARY: No dysuria, frequency, or change in urination. MUSCULOSKELETAL: No joint or muscle swelling or pain. No neck or back pain. SKIN: No rash NEUROLOGIC: No headache, vertigo, loss of consciousness, or change in strength/ sensation. ENDOCRINE: No increased thirst. No abnormal weight change HEMATOLOGIC/LYMPHATIC: No anemia, easy bleeding. Positive for history of blood clots. ALLERGIC/IMMUNOLOGIC: No hives or skin allergy. <Iglesia Bee - Last Filed: 07/14/17 19:24> *Physical Exam - Vital Signs Last Vital Signs Temp Pulse Resp BP Pulse Ox 89.3 F L 55 L 16 133/57 97 07/14/17 16:50 07/14/17 16:50 07/14/17 16:50 07/14/17 16:50 07/14/17 16:50 - Physical Exam Comments: 07/14/17 18:03 GENERAL: Awake, alert, and fully oriented, in no acute distress HEAD: No signs of trauma, normocephalic, atraumatic EYES: PERRLA, EOMI, sclera anicteric, conjunctiva clear ENT: Auricles normal inspection, hearing grossly normal, nares patent, oropharynx clear without exudates. Moist mucosa NECK: Normal ROM, supple, no lymphadenopathy, JVD, or masses LUNGS: No distress, speaks full sentences, clear to auscultation bilaterally HEART: Regular rate and rhythm, normal S1 and S2, no murmurs, rubs or gallops, peripheral pulses normal and equal bilaterally. ABDOMEN: Soft, nontender, normoactive bowel sounds. No guarding, no rebound. No masses EXTREMITIES: Normal inspection, Normal range of motion, 1+ pitting edema, bilaterally, equally. No clubbing or cyanosis. NEUROLOGICAL: Cranial nerves II through XII grossly intact. Normal speech, normal gait, no focal sensorimotor deficits SKIN: Warm, Dry, normal turgor, no rashes or lesions noted. <Iglesia Bee - Last Filed: 07/14/17 19:24> - Vital Signs Last Vital Signs Temp Pulse Resp BP Pulse Ox 98.3 F 55 L 16 133/57 97 07/14/17 16:50 07/14/17 16:50 07/14/17 16:50 07/14/17 16:50 07/14/17 16:50 <Silvino Alvarado - Last Filed: 07/14/17 20:31> ED Treatment Course - LABORATORY CBC & Chemistry Diagram: 07/14/17 17:00 07/14/17 17:00 - ADDITIONAL ORDERS Additional order review: Laboratory Results 07/14/17 17:00 PT with INR 33.50 H INR 2.96 H 07/14/17 17:00 RBC 3.61 MCV 87.2 MCHC 33.3 RDW 19.6 H MPV 8.2 Neutrophils % 70.9 Lymphocytes % 11.0 D Monocytes % 17.3 H Eosinophils % 0.4 D Basophils % 0.4 - RADIOLOGY Radiology Studies Ordered: Category Date Time Status CHEST X-RAY PORTABLE* [RAD] Stat Radiology 07/14/17 16:33 Completed DUPLEX VASCUL US-2LEGS [US] Stat Ultrasound 07/14/17 16:34 Ordered <Iglesia Bee - Last Filed: 07/14/17 19:24> - LABORATORY CBC & Chemistry Diagram: 07/14/17 17:00 03/22/18 17:00 - ADDITIONAL ORDERS Additional order review: Laboratory Results 07/14/17 07/14/17 17:00 17:00 PT with INR 33.50 H INR 2.96 H Sodium 144 Potassium 3.7 Chloride 107 Carbon Dioxide 27 Anion Gap 10 BUN 21 H Creatinine 1.0 Creat Clearance w eGFR 52.69 Random Glucose 100 Calcium 8.7 Magnesium 2.3 Total Bilirubin 0.3 D AST 20 ALT 26 Alkaline Phosphatase 48 Creatine Kinase 66 Troponin I < 0.02 B-Natriuretic Peptide 668.13 H Total Protein 5.6 L Albumin 2.9 L 07/14/17 17:00 RBC 3.61 MCV 87.2 MCHC 33.3 RDW 19.6 H MPV 8.2 Neutrophils % 70.9 Lymphocytes % 11.0 D Monocytes % 17.3 H Eosinophils % 0.4 D Basophils % 0.4 <Silvino Alvarado - Last Filed: 07/14/17 20:31> Medical Decision Making - Medical Decision Making 07/14/17 18:07 Patient is 87F with history of multiple myeloma, htn, dvt here today complaining of bilateral leg swelling. Differential diagnosis includes, but is not limited to: kidney disease, CHF exacerbation, bilateral DVTs. Will evaluate with cardiac workup and bilateral DVT ultrasound. Do not believe DVTs are likely , but concern elevated due to active cancer with history of DVT. 07/14/17 19:24 Laboratory Tests 07/14/17 07/14/17 07/14/17 17:00 17:00 17:00 WBC 5.2 D Hgb 10.5 L Hct 31.5 L Plt Count 218 INR 2.96 H Creat Clearance w eGFR 52.69 B-Natriuretic Peptide 668.13 H CBC normal. INR therapeutic. GFR slightly decreased. BNP slightly elevated. US pending. <Iglesia Bee - Last Filed: 07/14/17 19:24> *DC/Admit/Observation/Transfer <Iglesia Bee - Last Filed: 07/14/17 19:24> <Silvino Alvarado - Last Filed: 07/14/17 20:31> Diagnosis at time of Disposition: Dependent edema - Discharge Dispostion Disposition: HOME Condition at time of disposition: Stable - Referrals Referrals: Alejandro Grimm MD [Staff Physician] - De Marie MD [Staff Physician] - - Patient Instructions Printed Discharge Instructions: DI for Dependent Edema, DI for Peripheral Edema -- Bilateral Additional Instructions: Activity as tolerated. Stay hydrated. Blood tests and an ultrasound of your legs showed no acute abnormalities or clots in the veins. Your Coumadin level is therapeutic. The swelling can be improved with leg elevation, consider MARÍA stockings from your pharmacy. Continue your medications as previously prescribed by your physician. You should follow up with Dr. Shaver and Dr. Marie as soon as possible regarding today's emergency department visit. Return to the emergency department for any new or concerning symptoms, particularly persistent or worsening swelling, any chest pain or difficulty breathing, fevers or chills, discoloration.
[2017-07-14 18:11] VITALS: TEMP 98.3
--- NOTE | 2017-07-15 09:56 | EKG ---
Test Reason : Blood Pressure : / mmHG Vent. Rate : 049 BPM Atrial Rate : 049 BPM P-R Int : 134 ms QRS Dur : 090 ms QT Int : 440 ms P-R-T Axes : 047 003 031 degrees QTc Int : 397 ms SINUS BRADYCARDIA WITH PREMATURE ATRIAL COMPLEXES POSSIBLE LEFT ATRIAL ENLARGEMENT LEFT VENTRICULAR HYPERTROPHY ABNORMAL ECG WHEN COMPARED WITH ECG OF 15-MAR-2017 09:55, PREMATURE ATRIAL COMPLEXES ARE NOW PRESENT Confirmed by MADALYN CANNON MD ([id number]) on 07/15/2017 9:55:46 AM Referred By: Confirmed By:MADALYN CANNON MD
== END 2017-07-14 21:51 | disposition home or self-care (01) ==
LOC: JER 15:44
DX: R60.0 Localized edema (principal); I10 Essential (primary) hypertension; E11.9 Type 2 diabetes mellitus without complications; Z79.84 Long term (current) use of oral hypoglycemic drugs; E78.00 Pure hypercholesterolemia, unspecified; C90.00 Multiple myeloma not having achieved remission; Z85.850 Personal history of malignant neoplasm of thyroid; E89.0 Postprocedural hypothyroidism; I48.91 Unspecified atrial fibrillation; Z79.01 Long term (current) use of anticoagulants; Z86.718 Personal history of other venous thrombosis and embolism; Z87.891 Personal history of nicotine dependence
CPT/HCPCS: 36415; 71045-TC-FY; 80053; 82550; 83735; 83880; 84484; 85025; 85610; 93005; 93010; 93970-TC; 99282-25

== ENCOUNTER 2017-07-20 07:32 | Day surgery (SDC) | payer OTHER, BC, MEDICARE ==
[2017-07-20] MEDS ORDERED: BORTEZOMIB (VELCADE) 2.5 MG/ML SUB-Q INJECTION SQ ONE (08:00)
[2017-07-20 09:44] LABS: BASO % 1.6 % (0-2.0); EOS % 4.7 % (0-4.5); HEMATOCRIT 32.8 % (32.4-45.2); HEMOGLOBIN 10.8 GM/dL (10.7-15.3); LYMPH % 7.3 % (8-40); MCH 28.8 pg (25.7-33.7); MCHC 32.9 g/dl (32.0-36.0); MEAN CELL VOLUME 87.5 fl (80-96); MEAN PLT VOLUME 8.2 fl (7.5-11.1); MONO % 4.9 % (3.8-10.2); NEUT % 81.5 % (42.8-82.8); PLATELET COUNT 189 K/MM3 (134-434); RBC 3.75 M/mm3 (3.60-5.2); RDW 20.7 % (11.6-15.6); WHITE BLOOD COUNT 4.4 K/mm3 (4.0-10.0)
[2017-07-20 10:22] VITALS: BP 124/57; PULSE 63; TEMP 97.4
[2017-07-20 10:23] LABS: ALBUMIN 2.9 g/dl (3.4-5.0); ALK PHOS 49 U/L (45-117); ANION GAP 8 (8-16); BILIRUBIN,DIRECT 0.2 mg/dL (0.0-0.2); BILIRUBIN,TOTAL 0.5 mg/dL (0.2-1.0); BLOOD UREA NITROGEN 9 mg/dL (7-18); CALCIUM 7.8 mg/dL (8.5-10.1); CHLORIDE 107 mmol/L (98-107); CO2 25 mmol/L (21-32); CREATININE 0.9 mg/dL (0.55-1.02); GLUCOSE,RANDOM 67 mg/dL (74-106); MAGNESIUM 1.9 mg/dL (1.8-2.4); POTASSIUM 3.6 mmol/L (3.5-5.1); SGOT/AST 19 U/L (15-37); SGPT/ALT 24 U/L (12-78); SODIUM 140 mmol/L (136-145); TOT PROT 5.6 g/dl (6.4-8.2)
== END 2017-07-20 11:30 | disposition home or self-care (01) ==
LOC: JONCCHEMO 07:32 → J7W 10:10 → JONCCHEMO 11:30
PROVIDERS: ATTEND Internal Medicine Hematology & Oncology
DX: Z51.11 Encounter for antineoplastic chemotherapy (principal); C90.00 Multiple myeloma not having achieved remission
CPT/HCPCS: 36415; 80053; 80076; 83735; 85025; 96401; J9041

== ENCOUNTER 2017-08-03 07:21 | Day surgery (SDC) | payer OTHER, BC, MEDICARE ==
[2017-08-03] MEDS ORDERED: ZOLEDRONIC ACID 4 MG in SODIUM CHLORIDE 100 ML IVPB ONE (09:00)
[2017-08-03] MEDS ORDERED: BORTEZOMIB (VELCADE) 2.5 MG/ML SUB-Q INJECTION SQ ONE (09:00)
[2017-08-03 09:47] LABS: BASO % 1.2 % (0-2.0); EOS % 15.5 % (0-4.5); HEMATOCRIT 34.1 % (32.4-45.2); HEMOGLOBIN 11.2 GM/dL (10.7-15.3); LYMPH % 14.7 % (8-40); MCH 28.6 pg (25.7-33.7); MCHC 32.9 g/dl (32.0-36.0); MONO % 18.3 % (3.8-10.2); NEUT % 50.3 % (42.8-82.8); PLATELET COUNT 176 K/MM3 (134-434); RBC 3.92 M/mm3 (3.60-5.2); RDW 20.7 % (11.6-15.6)
[2017-08-03 10:10] LABS: ALBUMIN 3.2 g/dl (3.4-5.0); ALK PHOS 52 U/L (45-117); ANION GAP 6 (8-16); BILIRUBIN,DIRECT 0.2 mg/dL (0.0-0.2); BILIRUBIN,TOTAL 0.5 mg/dL (0.2-1.0); BLOOD UREA NITROGEN 10 mg/dL (7-18); CALCIUM 8.4 mg/dL (8.5-10.1); CHLORIDE 108 mmol/L (98-107); CO2 29 mmol/L (21-32); CREATININE 0.9 mg/dL (0.55-1.02); GLUCOSE,RANDOM 77 mg/dL (74-106); POTASSIUM 3.7 mmol/L (3.5-5.1); SGOT/AST 21 U/L (15-37); SGPT/ALT 23 U/L (12-78); SODIUM 143 mmol/L (136-145); TOT PROT 5.8 g/dl (6.4-8.2)
[2017-08-03 13:48] VITALS: TEMP 97.7
[2017-08-03 13:49] VITALS: BP 110/54; PULSE 56
== END 2017-08-03 12:05 | disposition home or self-care (01) ==
LOC: JONCCHEMO 07:21 → J7W 10:40 → JONCCHEMO 12:05
PROVIDERS: ATTEND Internal Medicine Hematology & Oncology
PROC: 3E01305 Introduction of Other Antineoplastic into Subcutaneous Tissue, Percutaneous Approach (ICD-10-PCS; principal; 2017-08-03)
PROC: 3E033GC Introduction of Other Therapeutic Substance into Peripheral Vein, Percutaneous Approach (ICD-10-PCS; 2017-08-03)
DX: Z51.11 Encounter for antineoplastic chemotherapy (principal); C90.00 Multiple myeloma not having achieved remission
CPT/HCPCS: 36415; 80053; 80076; 83735; 85025; 96365; 96401; 96417; J3489; J9041

== ENCOUNTER 2017-08-13 18:35 | Emergency (ER) | payer OTHER, BC, MEDICARE ==
[2017-08-13 18:42] VITALS: TEMP 98.3; BMI 24.5
--- NOTE | 2017-08-13 19:35 | PDOC ---
History of Present Illness - General Chief Complaint: Lightheaded Stated Complaint: DIZZINESS Time Seen by Provider: 08/13/17 19:09 History Source: Patient, Old Records Exam Limitations: No Limitations - History of Present Illness Initial Comments: 08/13/17 19:28 This is a 87-year-old woman with past medical history of BPPV, multiple myeloma , diabetes, DVT, A. fib who presents emergency Department with intermittent dizziness over the past 3 days. Currently the patient denies any dizziness. Patient is a resident in an assisted living facility and reported to her staff today that she had been feeling dizzy. Patient states her dizziness is room spinning sensation which lasts for a couple seconds up to 10-15 minutes. She states there are no precipitating factors and symptoms spontaneously resolve. Patient denies any headaches, blurry vision, chest pain, shortness of breath on the leg pain, abdominal pain, nausea, vomiting. Past History - Past Medical History Allergies/Adverse Reactions: Allergies Allergy/AdvReac Type Severity Reaction Status Date / Time No Known Allergies Allergy Verified 08/13/17 18:42 Home Medications: Ambulatory Orders Albuterol Sulfate [Proair Hfa] 8.5 gm IH Q6H PRN 08/13/17 Ammonium Lactate Cream [Lac-Hydrin] 1 applic TP DAILY 08/13/17 Amox-Tr/K Cl [Augmentin - 875Mg Tablet] 1 tab PO BID #14 tablet 08/13/17 Atorvastatin Ca [Lipitor] 40 mg PO HS 08/13/17 Dexamethasone 4 mg PO WEEKLY 08/13/17 Docusate Sodium [Colace] 100 mg PO HS 08/13/17 Fluticasone Prop 0.05% Nasal [Flonase -] 2 spray NS DAILY 08/13/17 Furosemide [Lasix] 40 mg PO DAILY 08/13/17 Gabapentin 600 mg PO DAILY 08/13/17 Ibuprofen 600 mg PO Q6H PRN 08/13/17 Lenalidomide [Revlimid] 10 mg PO DAILY 08/13/17 Levomefolate/B6/B12/Algal Oil [Metanx Capsule] 1 each PO DAILY 08/13/17 Levothyroxine [Synthroid -] 75 mcg PO DAILY 08/13/17 Metoprolol Succinate 12.5 mg PO DAILY 08/13/17 Pantoprazole Sodium 40 mg PO DAILY 08/13/17 Pramipexole Di-HCl [Mirapex] 0.25 mg PO HS 08/13/17 Sennosides [Senna Lax] 8.6 mg PO HS 08/13/17 Valacyclovir HCl [Valtrex] 500 mg PO DAILY 08/13/17 Warfarin Sodium [Coumadin] 5 mg PO DAILY 08/13/17 Anemia: No Asthma: No Cancer: Yes (THYROID, MULTIPLE MYELOMA) Cardiac Disorders: Yes (afib/DVT) CVA: No COPD: No CHF: No Dementia: No Diabetes: Yes (NIDDM) GI Disorders: No Disorders: No HTN: Yes Hypercholesterolemia: Yes Liver Disease: No Seizures: No Thyroid Disease: Yes (thyroid cancer, thyroidectomy done in 1999) - Surgical History Abdominal Surgery: Yes (exploratory lap) - Immunization History Immunization Up to Date: No - Suicide/Smoking/Psychosocial Hx Smoking Status: No Smoking History: Never smoked Have you smoked in the past 12 months: No Number of Cigarettes Smoked Daily: 0 If you are a former smoker, when did you quit?: 25 yrs ago Hx Alcohol Use: No Drug/Substance Use Hx: No Substance Use Type: None Hx Substance Use Treatment: No Review of Systems - Review of Systems Able to Perform ROS?: Yes Is the patient limited Scottish proficient: No Constitutional: No: Symptoms Reported HEENTM: No: Symptoms Reported Respiratory: No: Symptoms reported Cardiac (ROS): No: Symptoms Reported ABD/GI: No: Symptoms Reported : No: Symptoms Reported Musculoskeletal: No: Symptoms Reported Integumentary: No: Symptoms Reported Neurological: Yes: See HPI Endocrine: No: Symptoms Reported Hematologic/Lymphatic: No: Symptoms Reported *Physical Exam - Vital Signs Last Vital Signs Temp Pulse Resp BP Pulse Ox 98.3 F 50 L 18 145/84 100 08/13/17 18:40 08/13/17 18:40 08/13/17 18:40 08/13/17 18:40 08/13/17 18:40 - Physical Exam General Appearance: Yes: Appropriately Dressed. No: Apparent Distress HEENT: positive: Normal ENT Inspection Neck: positive: Trachea midline, Supple Respiratory/Chest: positive: Lungs Clear, Normal Breath Sounds. negative: Respiratory Distress, Accessory Muscle Use Cardiovascular: positive: Regular Rhythm, Edema (trace bilateral pedal), Bradycardia. negative: Murmur Vascular Pulses: Dorsalis-Pedis (R): 2+, Doralis-Pedis (L): 2+ Gastrointestinal/Abdominal: positive: Normal Bowel Sounds, Soft. negative: Tender Musculoskeletal: positive: Normal Inspection. negative: CVA Tenderness Extremity: positive: Normal Capillary Refill, Normal Inspection Integumentary: positive: Normal Color, Dry, Warm Neurologic: positive: sequins slinger II-XII NML intact, Fully Oriented, Alert, Normal Mood/ Affect, Normal Response, Motor Strength 5/5, Finger to Nose. negative: Numbness , Sensory Deficit, Confused, Disoriented Heart Score/ECG Review - History History: Slightly suspicious - Electrocardiogram EKG: Normal - Age Age: >/= 65 - Risk Factors Risk Factors Heart Score: Yes Hx Diabetes Based on the list above the patient has:: 1-2 risk factors ED Treatment Course - LABORATORY CBC & Chemistry Diagram: 08/13/17 21:00 08/13/17 21:00 - RADIOLOGY Radiology Studies Ordered: Category Date Time Status HEAD CT WITHOUT CONTRAST [CT] Stat CT Scan 08/13/17 19:27 Ordered CHEST X-RAY PORTABLE* [RAD] Stat Radiology 08/13/17 19:26 Ordered Medical Decision Making - Medical Decision Making 08/13/17 19:32 A/P: 87-year-old female with past medical history of BPPV, multiple myeloma, DM, DVT , A. fib on Coumadin with 3 days of intermittent dizziness Cranial nerves II through XII intact. No nystagmus present Mitchell-Hallpike maneuver negative bilaterally TMs clear without erythema or exudates bilaterally Lungs clear to auscultation bilaterally. Regular bradycardic rate. No murmurs, rub or gallop noted Trace pedal edema noted Patient states the symptoms are consistent with her usual vertiginous symptoms. Given patient's history I will collect CBC, CMP, cardiac profile, coagulation panel, UA, EKG, chest x-ray, head CT. 08/13/17 19:48 EKG is sinus bradycardia with a rate of 47. Grossly unchanged from previous EKG 07/14/17. 08/13/17 20:16 Chest x-rays read by me: Cardiac silhouette is slightly enlarged. No focal consolidation or infiltrate is noted. Scoliosis is noted in the thoracic spine. Visualized osseous structures intact. Grossly unchanged from study done on 07/15/79 08/13/17 23:34 CT of the head as read by imaging medical records receptionist: Ventricular system is midline nondilated. The sulcal pattern is normal for the patient's age. Mild small vessel ischemic changes are noted. There is no bleed, mass, extra-axial fluid collection or mass effect. No skull fracture or skull lesion is identified. Visualized paranasal sinuses and mastoid air cells are clear, other than minimal bilateral maxillary sinus mucosal thickening. We'll discharge patient back to assisted living facility. Given the patient's history, I'll treat the patient with Augmentin 875 twice a day for 7 days. I discussed the physical exam findings, ancillary test results and final diagnoses with the patient. I answered all of the patient's questions. The patient was satisfied with the care received and felt comfortable with the discharge plan and treatment plan. The patient will call her doctor within 96 hours to arrange follow-up and will return to the Emergency Department with any new, persistent or worsening symptoms. *DC/Admit/Observation/Transfer Diagnosis at time of Disposition: Sinusitis Qualifiers: Sinusitis location: unspecified location Chronicity: acute Recurrence: not specified as recurrent Qualified Code(s): J01.90 - Acute sinusitis, unspecified - Discharge Dispostion Disposition: HOME Condition at time of disposition: Stable Admit: No - Prescriptions Prescriptions: Amox-Tr/K Cl [Augmentin - 875Mg Tablet] 1 tab PO BID #14 tablet - Referrals Referrals: Alejandro Grimm MD [Primary Care Provider] - - Patient Instructions Additional Instructions: Rest. Steamy showers/seem to face break up mucus Lots of handwashing and good hygiene Tylenol or Motrin for fever and pain Augmentin 875mg twice a day for 1 week. Followup with private physician in one to 2 days as needed Return to emergency department for worsened symptoms, fevers, dizziness - Post Discharge Activity
[2017-08-13 21:12] LABS: BASO % 2.2 % (0-2.0); EOS % 4.9 % (0-4.5); HEMATOCRIT 35.2 % (32.4-45.2); HEMOGLOBIN 11.5 GM/dL (10.7-15.3); LYMPH % 10.3 % (8-40); MCH 28.7 pg (25.7-33.7); MCHC 32.8 g/dl (32.0-36.0); MEAN CELL VOLUME 87.5 fl (80-96); MEAN PLT VOLUME 8.5 fl (7.5-11.1); MONO % 12.3 % (3.8-10.2); NEUT % 70.3 % (42.8-82.8); PLATELET COUNT 214 K/MM3 (134-434); RBC 4.02 M/mm3 (3.60-5.2); RDW 21.1 % (11.6-15.6); WHITE BLOOD COUNT 3.9 K/mm3 (4.0-10.0)
[2017-08-13 21:29] LABS: INR 2.9 (0.82-1.09); PROTHROMBIN TIME (PATIENT) 32.8 SEC (9.98-11.88)
[2017-08-13 21:34] LABS: ALBUMIN 2.9 g/dl (3.4-5.0); ALK PHOS 55 U/L (45-117); ANION GAP 5 (8-16); BILIRUBIN,TOTAL 0.5 mg/dL (0.2-1.0); BLOOD UREA NITROGEN 13 mg/dL (7-18); CALCIUM 8.3 mg/dL (8.5-10.1); CHLORIDE 107 mmol/L (98-107); CO2 29 mmol/L (21-32); CREATININE 1.1 mg/dL (0.55-1.02); GLUCOSE,RANDOM 96 mg/dL (74-106); SGPT/ALT 27 U/L (12-78); SODIUM 141 mmol/L (136-145); TOT PROT 6.2 g/dl (6.4-8.2)
[2017-08-13 21:37] LABS: POTASSIUM 4.3 mmol/L (3.5-5.1); SGOT/AST 66 U/L (15-37)
[2017-08-13 22:54] LABS: URINE APPEARANCE CLEAR; URINE BILIRUBIN NEGATIVE (<2.0 mg/dL); URINE BLOOD NEGATIVE (NEGATIVE); URINE COLOR LTYELLOW; URINE GLUCOSE (UA) NEGATIVE (NEGATIVE); URINE KETONE NEGATIVE (NEGATIVE); URINE LEUK ESTERASE NEGATIVE (NEGATIVE); URINE NITRITE NEGATIVE (NEGATIVE); URINE PROTEIN NEGATIVE (NEGATIVE); URINE UROBILINOGEN NEGATIVE mg/dL (0.2-1.0)
[2017-08-14 00:01] VITALS: BP 135/82; PULSE 52
--- NOTE | 2017-08-14 15:32 | EKG ---
Test Reason : Blood Pressure : / mmHG Vent. Rate : 047 BPM Atrial Rate : 047 BPM P-R Int : 150 ms QRS Dur : 088 ms QT Int : 476 ms P-R-T Axes : 043 012 045 degrees QTc Int : 421 ms SINUS BRADYCARDIA POSSIBLE LEFT ATRIAL ENLARGEMENT LEFT VENTRICULAR HYPERTROPHY ABNORMAL ECG WHEN COMPARED WITH ECG OF 14-JUL-2017 16:15, PREMATURE ATRIAL COMPLEXES ARE NO LONGER PRESENT Confirmed by LINDA BEAN MD ([id number]) on 08/14/2017 3:32:01 PM Referred By: Confirmed By:LINDA BEAN MD
== END 2017-08-14 00:01 ==
LOC: SUPCPDRO 18:35 → JER 18:35
DX: J01.90 Acute sinusitis, unspecified (principal); E11.9 Type 2 diabetes mellitus without complications; Z79.84 Long term (current) use of oral hypoglycemic drugs; E78.00 Pure hypercholesterolemia, unspecified; I48.91 Unspecified atrial fibrillation; Z79.01 Long term (current) use of anticoagulants; Z86.718 Personal history of other venous thrombosis and embolism; C90.00 Multiple myeloma not having achieved remission; Z85.850 Personal history of malignant neoplasm of thyroid; E89.0 Postprocedural hypothyroidism
CPT/HCPCS: 36415; 70450-TC; 71045-TC-FY; 80053; 81003; 82550; 82553; 84484; 85025; 85610; 86850; 86900; 86901; 93005; 93010; 99283-25

== ENCOUNTER 2017-08-17 07:27 | Day surgery (SDC) | payer OTHER, BC, MEDICARE ==
[~2017-08-17 07:27] MED LIST: BORTEZOMIB (VELCADE) 2.5 MG/ML SUB-Q INJECTION SQ ONE
[2017-08-17 09:39] LABS: BASO % 2.2 % (0-2.0); EOS % 5.5 % (0-4.5); HEMATOCRIT 32.9 % (32.4-45.2); LYMPH % 15.2 % (8-40); MCH 29.2 pg (25.7-33.7); MCHC 33.5 g/dl (32.0-36.0); MEAN CELL VOLUME 87.2 fl (80-96); MONO % 9.1 % (3.8-10.2); PLATELET COUNT 228 K/MM3 (134-434); RBC 3.78 M/mm3 (3.60-5.2); RDW 20.2 % (11.6-15.6); WHITE BLOOD COUNT 3.5 K/mm3 (4.0-10.0)
[2017-08-17 10:08] LABS: ALBUMIN 3.1 g/dl (3.4-5.0); ANION GAP 4 (8-16); BILIRUBIN,DIRECT 0.2 mg/dL (0.0-0.2); BILIRUBIN,TOTAL 0.6 mg/dL (0.2-1.0); BLOOD UREA NITROGEN 8 mg/dL (7-18); CALCIUM 8.2 mg/dL (8.5-10.1); CHLORIDE 108 mmol/L (98-107); CO2 31 mmol/L (21-32); CREATININE 1.1 mg/dL (0.55-1.02); GLUCOSE,RANDOM 78 mg/dL (74-106); MAGNESIUM 2.2 mg/dL (1.8-2.4); POTASSIUM 3.3 mmol/L (3.5-5.1); SGOT/AST 21 U/L (15-37); SGPT/ALT 21 U/L (12-78); SODIUM 143 mmol/L (136-145)
[2017-08-17 10:09] LABS: ALK PHOS 54 U/L (45-117)
[2017-08-17] MEDS ORDERED: POTASSIUM CHLORIDE TABS 20 MEQ TABLET.ER (FP) PO ONE (12:30)
[2017-08-17 13:05] VITALS: BP 127/57; TEMP 98.5
[2017-08-17 13:06] VITALS: PULSE 54
== END 2017-08-17 13:30 | disposition home or self-care (01) ==
LOC: JONCCHEMO 07:27 → J7W 10:21 → JONCCHEMO 13:30
PROVIDERS: ATTEND Internal Medicine Hematology & Oncology
DX: Z51.11 Encounter for antineoplastic chemotherapy (principal); C90.00 Multiple myeloma not having achieved remission
CPT/HCPCS: 36415; 80053; 80076; 83735; 85025; 96401; J9041

== ENCOUNTER 2017-08-31 07:33 | Day surgery (SDC) | payer OTHER, BC, MEDICARE ==
[2017-08-31 09:33] LABS: BASO % 2.1 % (0-2.0); EOS % 13.3 % (0-4.5); HEMATOCRIT 30.2 % (32.4-45.2); HEMOGLOBIN 10.1 GM/dL (10.7-15.3); LYMPH % 13.2 % (8-40); MCH 29.5 pg (25.7-33.7); MCHC 33.6 g/dl (32.0-36.0); MEAN CELL VOLUME 87.8 fl (80-96); MEAN PLT VOLUME 8.4 fl (7.5-11.1); MONO % 17.1 % (3.8-10.2); NEUT % 54.3 % (42.8-82.8); PLATELET COUNT 159 K/MM3 (134-434); RBC 3.44 M/mm3 (3.60-5.2); RDW 19.9 % (11.6-15.6); WHITE BLOOD COUNT 3.1 K/mm3 (4.0-10.0)
[2017-08-31] MEDS ORDERED: BORTEZOMIB (VELCADE) 2.5 MG/ML SUB-Q INJECTION SQ ONE (10:00)
[2017-08-31 10:49] LABS: ALBUMIN 2.8 g/dl (3.4-5.0); ALK PHOS 48 U/L (45-117); ANION GAP 9 (8-16); BILIRUBIN,TOTAL 0.8 mg/dL (0.2-1.0); BLOOD UREA NITROGEN 9 mg/dL (7-18); CALCIUM 7.7 mg/dL (8.5-10.1); CHLORIDE 105 mmol/L (98-107); CO2 29 mmol/L (21-32); GLUCOSE,RANDOM 104 mg/dL (74-106); SGOT/AST 19 U/L (15-37); SGPT/ALT 18 U/L (12-78); SODIUM 143 mmol/L (136-145); TOT PROT 5.5 g/dl (6.4-8.2)
[2017-08-31 10:54] LABS: POTASSIUM 2.8 mmol/L (3.5-5.1)
[2017-08-31] MEDS ORDERED: POTASSIUM CHLORIDE TABS 20 MEQ TABLET.ER (FP) PO ONE (11:30)
[2017-08-31 14:56] VITALS: BP 110/49; PULSE 56; TEMP 98.4
[2017-09-01 12:48] LABS: BILIRUBIN,DIRECT 0.3 mg/dL (0.0-0.2); MAGNESIUM 1.8 mg/dL (1.8-2.4)
== END 2017-08-31 12:15 | disposition home or self-care (01) ==
LOC: JONCCHEMO 07:33 → J7W 10:09 → JONCCHEMO 12:15
PROVIDERS: ATTEND Internal Medicine Hematology & Oncology
DX: Z51.11 Encounter for antineoplastic chemotherapy (principal); C90.00 Multiple myeloma not having achieved remission
CPT/HCPCS: 36415; 80053; 80076; 83735; 85025; 96401; J9041

== ENCOUNTER 2017-09-14 07:35 | Day surgery (SDC) | payer OTHER, BC, MEDICARE ==
[2017-09-14] MEDS ORDERED: BORTEZOMIB (VELCADE) 2.5 MG/ML SUB-Q INJECTION SQ ONE (08:00)
[2017-09-14 10:23] LABS: HEMOGLOBIN 11.1 GM/dL (10.7-15.3)
[2017-09-14 10:29] LABS: BASO % 0.7 % (0-2.0); EOS % 2.1 % (0-4.5); HEMATOCRIT 33.9 % (32.4-45.2); MCH 28.6 pg (25.7-33.7); MCHC 32.9 g/dl (32.0-36.0); MEAN CELL VOLUME 86.9 fl (80-96); MEAN PLT VOLUME 8.2 fl (7.5-11.1); MONO % 3.6 % (3.8-10.2); NEUT % 86.6 % (42.8-82.8); PLATELET COUNT 237 K/MM3 (134-434); RDW 20.4 % (11.6-15.6); WHITE BLOOD COUNT 3.8 K/mm3 (4.0-10.0)
[2017-09-14 10:51] LABS: ANION GAP 6 (8-16); BILIRUBIN,DIRECT 0.2 mg/dL (0.0-0.2); BILIRUBIN,TOTAL 0.6 mg/dL (0.2-1.0); BLOOD UREA NITROGEN 8 mg/dL (7-18); CALCIUM 7.7 mg/dL (8.5-10.1); CHLORIDE 106 mmol/L (98-107); CO2 31 mmol/L (21-32); GLUCOSE,RANDOM 100 mg/dL (74-106); MAGNESIUM 2.2 mg/dL (1.8-2.4); SGOT/AST 18 U/L (15-37); SGPT/ALT 21 U/L (12-78); SODIUM 143 mmol/L (136-145)
[2017-09-14 10:52] LABS: ALK PHOS 60 U/L (45-117)
[2017-09-14 11:02] LABS: POTASSIUM 2.9 mmol/L (3.5-5.1)
[2017-09-14] MEDS ORDERED: POTASSIUM CHLORIDE 10 MEQ in SODIUM CHLORIDE 100 ML IVPB SCH (11:45)
[2017-09-14] MEDS ORDERED: POTASSIUM CHLORIDE 20 MEQ in SODIUM CHLORIDE 250 ML IVPB ONE (11:57)
[2017-09-14] MEDS: POTASSIUM CHLORIDE TABS 20 MEQ TABLET.ER (FP) PO ONE (13:09)
[2017-09-14 15:30] VITALS: TEMP 98.5
--- NOTE | 2017-09-14 15:35 | PN ---
Progress Note (short form) - Note Progress Note: replete K IV and PO. wrote a note to facility to repeat chem.
[2017-09-14 15:46] VITALS: BP 116/65; PULSE 53
== END 2017-09-14 15:52 | disposition home or self-care (01) ==
LOC: JCHEMO 07:35 → JONCCHEMO 07:35 → J7W 11:08 → JONCCHEMO 15:52
PROVIDERS: ATTEND Internal Medicine Hematology & Oncology
PROC: 3E01305 Introduction of Other Antineoplastic into Subcutaneous Tissue, Percutaneous Approach (ICD-10-PCS; principal; 2017-09-14)
PROC: 3E033GC Introduction of Other Therapeutic Substance into Peripheral Vein, Percutaneous Approach (ICD-10-PCS; 2017-09-14)
DX: Z51.11 Encounter for antineoplastic chemotherapy (principal); C90.00 Multiple myeloma not having achieved remission
CPT/HCPCS: 36415; 80053; 80076; 83735; 85025; 96365; 96366; 96401; 96415; 96417; J9041

== ENCOUNTER 2017-09-28 07:42 | Day surgery (SDC) | payer OTHER, BC, MEDICARE ==
[2017-09-28] MEDS ORDERED: BORTEZOMIB (VELCADE) 2.5 MG/ML SUB-Q INJECTION SQ ONE (08:00)
[2017-09-28 09:27] LABS: BASO % 0.8 % (0-2.0); HEMATOCRIT 32.7 % (32.4-45.2); HEMOGLOBIN 10.8 GM/dL (10.7-15.3); LYMPH % 13.3 % (8-40); MCHC 33.1 g/dl (32.0-36.0); MEAN CELL VOLUME 87.8 fl (80-96); MEAN PLT VOLUME 8.4 fl (7.5-11.1); MONO % 18.5 % (3.8-10.2); NEUT % 53.4 % (42.8-82.8); PLATELET COUNT 157 K/MM3 (134-434); RBC 3.73 M/mm3 (3.60-5.2)
[2017-09-28 09:52] LABS: ANION GAP 8 (8-16); BLOOD UREA NITROGEN 8 mg/dL (7-18); CALCIUM 8.1 mg/dL (8.5-10.1); CHLORIDE 106 mmol/L (98-107); CO2 29 mmol/L (21-32); GLUCOSE,RANDOM 67 mg/dL (74-106); MAGNESIUM 1.8 mg/dL (1.8-2.4); POTASSIUM 3.1 mmol/L (3.5-5.1); SODIUM 143 mmol/L (136-145)
[2017-09-28] MEDS ORDERED: POTASSIUM CHLORIDE TABS 20 MEQ TABLET.ER (FP) PO ONE (11:31)
[2017-09-28 12:00] LABS: ALBUMIN 3.1 g/dl (3.4-5.0); ALK PHOS 54 U/L (45-117); BILIRUBIN,DIRECT 0.2 mg/dL (0.0-0.2); BILIRUBIN,TOTAL 0.6 mg/dL (0.2-1.0); SGOT/AST 17 U/L (15-37); SGPT/ALT 23 U/L (12-78); TOT PROT 5.9 g/dl (6.4-8.2)
[2017-09-28] MEDS: POTASSIUM CHLORIDE 10 MEQ in SODIUM CHLORIDE 100 ML IVPB SCH ×2 (12:58→14:10)
[2017-09-28 17:34] VITALS: BP 130/72; PULSE 77; TEMP 98.1
== END 2017-09-28 15:30 | disposition home or self-care (01) ==
LOC: JONCCHEMO 07:42 → J7W 10:33 → JONCCHEMO 15:30
PROVIDERS: ATTEND Internal Medicine Hematology & Oncology
PROC: 3E01305 Introduction of Other Antineoplastic into Subcutaneous Tissue, Percutaneous Approach (ICD-10-PCS; principal; 2017-09-28)
PROC: 3E033GC Introduction of Other Therapeutic Substance into Peripheral Vein, Percutaneous Approach (ICD-10-PCS; 2017-09-28)
DX: Z51.11 Encounter for antineoplastic chemotherapy (principal); C90.00 Multiple myeloma not having achieved remission
CPT/HCPCS: 36415; 80048; 80076; 83735; 85025; 96365; 96366; 96401; 96417; J9041

== ENCOUNTER 2017-10-12 07:31 | Day surgery (SDC) | payer OTHER, BC, MEDICARE ==
[2017-10-12 09:07] LABS: BASO % 2.1 % (0-2.0); EOS % 5.5 % (0-4.5); HEMATOCRIT 33.2 % (32.4-45.2); HEMOGLOBIN 10.9 GM/dL (10.7-15.3); LYMPH % 12.3 % (8-40); MCH 28.9 pg (25.7-33.7); MCHC 32.7 g/dl (32.0-36.0); MEAN CELL VOLUME 88.2 fl (80-96); MONO % 8.3 % (3.8-10.2); NEUT % 71.8 % (42.8-82.8); PLATELET COUNT 202 K/MM3 (134-434); RBC 3.76 M/mm3 (3.60-5.2); RDW 20.5 % (11.6-15.6); WHITE BLOOD COUNT 3.4 K/mm3 (4.0-10.0)
[2017-10-12 09:42] LABS: ALBUMIN 2.9 g/dl (3.4-5.0); ALK PHOS 55 U/L (45-117); ANION GAP 8 (8-16); BILIRUBIN,DIRECT 0.2 mg/dL (0.0-0.2); BILIRUBIN,TOTAL 0.6 mg/dL (0.2-1.0); BLOOD UREA NITROGEN 9 mg/dL (7-18); CALCIUM 8.2 mg/dL (8.5-10.1); CHLORIDE 103 mmol/L (98-107); CO2 32 mmol/L (21-32); GLUCOSE,RANDOM 79 mg/dL (74-106); MAGNESIUM 1.8 mg/dL (1.8-2.4); POTASSIUM 3.2 mmol/L (3.5-5.1); SGOT/AST 22 U/L (15-37); SGPT/ALT 24 U/L (12-78); SODIUM 143 mmol/L (136-145); TOT PROT 5.9 g/dl (6.4-8.2)
[2017-10-12] MEDS ORDERED: BORTEZOMIB (VELCADE) 2.5 MG/ML SUB-Q INJECTION SQ ONE (10:00)
[2017-10-12] MEDS ORDERED: POTASSIUM CHLORIDE TABS 20 MEQ TABLET.ER (FP) PO ONE (10:45)
[2017-10-12 13:50] VITALS: BP 105/53; PULSE 54; TEMP 98.3
[2017-10-12 14:01] LABS: ANISOCYTOSIS 1+; MACROCYTOSIS 0; OVALOCYTE 1+; PLATELET ESTIMATE NORMAL
== END 2017-10-12 11:40 | disposition home or self-care (01) ==
LOC: JONCCHEMO 07:31 → J7W 09:58 → JONCCHEMO 11:40
PROVIDERS: ATTEND Internal Medicine Hematology & Oncology
DX: Z51.11 Encounter for antineoplastic chemotherapy (principal); C90.00 Multiple myeloma not having achieved remission
CPT/HCPCS: 36415; 80053; 80076; 83735; 85025; 96401; J9041

== ENCOUNTER 2017-11-02 07:38 | Day surgery (SDC) | payer OTHER, BC, MEDICARE ==
[2017-11-02 08:59] LABS: BASO % 2.7 % (0-2.0); HEMATOCRIT 34.2 % (32.4-45.2); HEMOGLOBIN 11.1 GM/dL (10.7-15.3); MCH 28.6 pg (25.7-33.7); MCHC 32.6 g/dl (32.0-36.0); MEAN CELL VOLUME 87.7 fl (80-96); MONO % 10.7 % (3.8-10.2); NEUT % 77.6 % (42.8-82.8); PLATELET COUNT 239 K/MM3 (134-434); RDW 20.4 % (11.6-15.6); WHITE BLOOD COUNT 3.5 K/mm3 (4.0-10.0)
[2017-11-02] MEDS ORDERED: BORTEZOMIB (VELCADE) 2.5 MG/ML SUB-Q INJECTION SQ ONE (09:00)
[2017-11-02 10:23] LABS: CHLORIDE 106 mmol/L (98-107); POTASSIUM 3.9 mmol/L (3.5-5.1); SODIUM 138 mmol/L (136-145)
[2017-11-02 10:31] LABS: ALBUMIN 3.2 g/dl (3.4-5.0); ALK PHOS 58 U/L (45-117); ANION GAP 4 (8-16); BILIRUBIN,DIRECT 0.5 mg/dL (0.0-0.2); BILIRUBIN,TOTAL 0.6 mg/dL (0.2-1.0); BLOOD UREA NITROGEN 12 mg/dL (7-18); CALCIUM 8.6 mg/dL (8.5-10.1); CO2 28 mmol/L (21-32); GLUCOSE,RANDOM 101 mg/dL (74-106); MAGNESIUM 1.9 mg/dL (1.8-2.4); SGOT/AST 25 U/L (15-37); SGPT/ALT 28 U/L (12-78); TOT PROT 6.2 g/dl (6.4-8.2)
[2017-11-02 12:40] VITALS: BP 129/77; PULSE 70; TEMP 97.7
== END 2017-11-02 10:30 | disposition home or self-care (01) ==
LOC: JONCCHEMO 07:38 → J7W 09:48 → JONCCHEMO 10:30
PROVIDERS: ATTEND Internal Medicine Hematology & Oncology
DX: Z51.11 Encounter for antineoplastic chemotherapy (principal); C90.00 Multiple myeloma not having achieved remission
CPT/HCPCS: 36415; 80053; 80076; 83735; 85025; 96401; J9041

== ENCOUNTER 2017-11-16 07:33 | Day surgery (SDC) | payer OTHER, BC, MEDICARE ==
[2017-11-16] MEDS ORDERED: BORTEZOMIB (VELCADE) 2.5 MG/ML SUB-Q INJECTION SQ ONE (09:00)
[2017-11-16 09:13] LABS: BASO % 0.6 % (0-2.0); HEMOGLOBIN 10.5 GM/dL (10.7-15.3); LYMPH % 11.9 % (8-40); MCH 28.6 pg (25.7-33.7); MCHC 32.9 g/dl (32.0-36.0); NEUT % 61.5 % (42.8-82.8); PLATELET COUNT 202 K/MM3 (134-434); RBC 3.68 M/mm3 (3.60-5.2); RDW 20.1 % (11.6-15.6); WHITE BLOOD COUNT 3.6 K/mm3 (4.0-10.0)
[2017-11-16 09:37] LABS: ALBUMIN 2.9 g/dl (3.4-5.0); ANION GAP 4 (8-16); BILIRUBIN,DIRECT 0.2 mg/dL (0.0-0.2); BILIRUBIN,TOTAL 0.5 mg/dL (0.2-1.0); BLOOD UREA NITROGEN 9 mg/dL (7-18); CALCIUM 8.7 mg/dL (8.5-10.1); CHLORIDE 106 mmol/L (98-107); CO2 31 mmol/L (21-32); GLUCOSE,RANDOM 74 mg/dL (74-106); MAGNESIUM 1.8 mg/dL (1.8-2.4); POTASSIUM 4.2 mmol/L (3.5-5.1); SGOT/AST 21 U/L (15-37); SGPT/ALT 27 U/L (12-78); SODIUM 141 mmol/L (136-145); TOT PROT 5.7 g/dl (6.4-8.2)
[2017-11-16 09:38] LABS: ALK PHOS 60 U/L (45-117); BILIRUBIN,TOTAL 0.5 mg/dL (0.2-1.0); TOT PROT 5.8 g/dl (6.4-8.2)
[2017-11-16 11:07] VITALS: BP 122/46; PULSE 49; TEMP 98.2
== END 2017-11-16 10:30 | disposition home or self-care (01) ==
LOC: JONCCHEMO 07:33 → J7W 10:00 → JONCCHEMO 10:30
PROVIDERS: ATTEND Internal Medicine Hematology & Oncology
DX: Z51.11 Encounter for antineoplastic chemotherapy (principal); C90.00 Multiple myeloma not having achieved remission
CPT/HCPCS: 36415; 80053; 80076; 83735; 85025; 96401; J9041

== ENCOUNTER 2017-11-20 00:23 | Emergency (ER) | payer OTHER, BC, MEDICARE ==
--- NOTE | 2017-11-20 00:28 | PDOC ---
History of Present Illness - General Stated Complaint: LEG PAIN Time Seen by Provider: 11/20/17 00:27 - History of Present Illness Initial Comments: 11/20/17 00:28 Ms. Ashton is an 87 yo female w/ pmh of HTN, HLD, Hypothyroidism, GERD, BPPV, multiple myeloma, diabetes, DVT, afib (on warfarin) who presents for evaluation of prominent left leg veins and leg pain for the past day. Patient reports she woke up and noted symptoms and was sent in for DVT r/o. The patient denies chest pain, shortness of breath, headache and dizziness. Denies fever, chills, nausea, vomit, diarrhea and constipation. Denies dysuria, frequency, urgency and hematuria. Allergies: NKDA Past History - Past Medical History Allergies/Adverse Reactions: Allergies Allergy/AdvReac Type Severity Reaction Status Date / Time No Known Allergies Allergy Verified 11/20/17 00:36 Home Medications: Ambulatory Orders Albuterol Sulfate [Proair Hfa] 8.5 gm IH Q6H PRN 08/13/17 Ammonium Lactate Cream [Lac-Hydrin] 1 applic TP DAILY 08/13/17 Atorvastatin Ca [Lipitor] 40 mg PO HS 08/13/17 Dexamethasone 4 mg PO WEEKLY 08/13/17 Docusate Sodium [Colace] 100 mg PO HS 08/13/17 Fluticasone Prop 0.05% Nasal [Flonase -] 2 spray NS DAILY 08/13/17 Furosemide [Lasix] 40 mg PO DAILY 08/13/17 Gabapentin 600 mg PO DAILY 08/13/17 Ibuprofen 600 mg PO Q6H PRN 08/13/17 Lenalidomide [Revlimid] 10 mg PO DAILY 08/13/17 Levomefolate/B6/B12/Algal Oil [Metanx Capsule] 1 each PO DAILY 08/13/17 Levothyroxine [Synthroid -] 75 mcg PO DAILY 08/13/17 Metoprolol Succinate 12.5 mg PO DAILY 08/13/17 Pantoprazole Sodium 40 mg PO DAILY 08/13/17 Pramipexole Di-HCl [Mirapex] 0.25 mg PO HS 08/13/17 Sennosides [Senna Lax] 8.6 mg PO HS 08/13/17 Valacyclovir HCl [Valtrex] 500 mg PO DAILY 08/13/17 Warfarin Sodium [Coumadin] 5 mg PO DAILY 08/13/17 Magnesium 250 mg PO DAILY 11/20/17 Meclizine HCl 25 mg PO DAILY 11/20/17 Potassium Chloride 20 meq PO BID 11/20/17 Warfarin Na [Coumadin Protocol] 4 each PO DAILY 11/20/17 Anemia: No Asthma: No Cancer: Yes (THYROID, MULTIPLE MYELOMA) Cardiac Disorders: Yes (afib/DVT) CVA: No COPD: No CHF: No Dementia: No Diabetes: Yes GI Disorders: No Disorders: No HTN: Yes Hypercholesterolemia: Yes Liver Disease: No Seizures: No Thyroid Disease: Yes (thyroid cancer, thyroidectomy done in 1999) - Surgical History Abdominal Surgery: Yes (exploratory lap) - Immunization History Immunization Up to Date: No - Suicide/Smoking/Psychosocial Hx Smoking Status: No Smoking History: Never smoked Have you smoked in the past 12 months: No Number of Cigarettes Smoked Daily: 0 If you are a former smoker, when did you quit?: 25 yrs ago Hx Alcohol Use: No Drug/Substance Use Hx: No Substance Use Type: None Hx Substance Use Treatment: No Review of Systems - Review of Systems Comments:: 11/20/17 00:28 GENERAL/CONSTITUTIONAL: No fever or chills. No weakness. HEAD, EYES, EARS, NOSE AND THROAT: No change in vision. No ear pain or discharge. No sore throat. CARDIOVASCULAR: No chest pain or shortness of breath RESPIRATORY: No cough, wheezing, or hemoptysis. GASTROINTESTINAL: No nausea, vomiting, diarrhea or constipation. GENITOURINARY: No dysuria, frequency, or change in urination. MUSCULOSKELETAL: +Left calf pain and prominent vein as described x1 day. SKIN: No rash NEUROLOGIC: No headache, vertigo, loss of consciousness, or change in strength/ sensation. ENDOCRINE: No increased thirst. No abnormal weight change HEMATOLOGIC/LYMPHATIC: No anemia, easy bleeding, or history of blood clots. ALLERGIC/IMMUNOLOGIC: No hives or skin allergy. *Physical Exam - Physical Exam Comments: 11/20/17 00:28 GENERAL: Awake, alert, and fully oriented, in no acute distress HEAD: No signs of trauma, normocephalic, atraumatic EYES: PERRLA, EOMI, sclera anicteric, conjunctiva clear ENT: Auricles normal inspection, hearing grossly normal, nares patent, oropharynx clear without exudates. Moist mucosa NECK: Normal ROM, supple, no lymphadenopathy, JVD, or masses LUNGS: No distress, speaks full sentences, clear to auscultation bilaterally HEART: Regular rate and rhythm, normal S1 and S2, no murmurs, rubs or gallops, peripheral pulses normal and equal bilaterally. ABDOMEN: Soft, nontender, normoactive bowel sounds. No guarding, no rebound. No masses EXTREMITIES: +LLE reportedly "tight" feeling with dorsiflexion. Mild RIKY Pedal edema likewise noted. NEUROLOGICAL: Cranial nerves II through XII grossly intact. Normal speech, normal gait, no focal sensorimotor deficits SKIN: Warm, Dry, normal turgor, no rashes or lesions noted. ED Treatment Course - LABORATORY CBC & Chemistry Diagram: 11/20/17 02:26 11/20/17 02:26 Medical Decision Making - Medical Decision Making 11/20/17 02:51 Ms. Ashton is an 87 yo female w/ pmh as described who presents for evaluation of left leg vascular prominence. Labs as below sent for evaluation to confirm patient's INR in therapeutic range and no infectious or electrolyte process. Vascular study sent for r/o DVT. Labs grossly wnl; patient noted to be at baseline for WBC, H/H. DVT study negative. No concern for acute process at this time. INR therapeutic. Discharging to home. Laboratory Results - last 24 hr 11/20/17 11/20/17 11/20/17 02:26 02:26 02:26 WBC 3.7 L RBC 3.57 L Hgb 10.4 L Hct 31.3 L MCV 87.9 MCH 29.1 MCHC 33.1 RDW 20.6 H Plt Count 169 MPV 8.6 Absolute Neuts (auto) 2.2 Neutrophils % No Result Required. Lymphocytes % No Result Required. Nucleated RBC % 0 PT with INR 23.90 H* INR 2.12 H Sodium 143 Potassium 4.2 Chloride 107 Carbon Dioxide 30 Anion Gap 6 L BUN 13 Creatinine 1.2 H Creat Clearance w eGFR 42.70 Random Glucose 76 Calcium 8.2 L Total Bilirubin 0.4 AST 22 ALT 28 Alkaline Phosphatase 56 Total Protein 5.6 L Albumin 2.8 L TSH 11/20/17 02:26 WBC RBC Hgb Hct MCV MCH MCHC RDW Plt Count MPV Absolute Neuts (auto) Neutrophils % Lymphocytes % Nucleated RBC % PT with INR INR Sodium Potassium Chloride Carbon Dioxide Anion Gap BUN Creatinine Creat Clearance w eGFR Random Glucose Calcium Total Bilirubin AST ALT Alkaline Phosphatase Total Protein Albumin TSH 1.26 *DC/Admit/Observation/Transfer Diagnosis at time of Disposition: Leg pain Qualifiers: Laterality: left Qualified Code(s): M79.605 - Pain in left leg - Discharge Dispostion Disposition: [facility]ION FACILITY Condition at time of disposition: Stable - Referrals - Patient Instructions Printed Discharge Instructions: DI for Leg Pain Additional Instructions: Please follow-up with primary care provider Tuesday for further evaluation. Return to ER if any return of pain, fever, chills, or other concerning symptoms. - Post Discharge Activity
[2017-11-20 00:39] VITALS: BMI 25.7
--- NOTE | 2017-11-20 00:54 | PDOC ---
Attending Attestation - HPI HPI: 11/20/17 06:19 The patient is an 87 year old female from [facility] with a past medical history DVT, Multiple myeloma, htn, diabetes who presents to the emergency department for evaluation of leg pain. The patient reports waking up this morning with an engorged vessel on the medial aspect of her left leg. She reports talking to a doctor who prompted her to visit the ED to r/o DVT and Phlebitis. Pt has no other complaints. Denies cp sob n/v, f/c lightheadedness, and abdominal pain. Denies diarrhea, constipation, urinary frequency/urgency, dysuria, and hematuria. Allergies: NKDA Social History: No reported alcohol, cigarette, or drug use. - Physicial Exam PE: GENERAL: Awake, alert, and fully oriented, in no acute distress HEAD: No signs of trauma NECK: Normal ROM, supple, no lymphadenopathy, JVD, or masses LUNGS: Breath sounds equal, clear to auscultation bilaterally. No wheezes, and no crackles HEART: Regular rate and rhythm, normal S1 and S2, no murmurs, rubs or gallops ABDOMEN: Soft, nontender, normoactive bowel sounds. No guarding, no rebound. No masses EXTREMITIES: (+)bilateral lower extremity pitting edema. (+)varicosities on her left leg. (+)Valgus deformity of her toes. Normal range of motion, no edema. No clubbing or cyanosis. No cords, erythema, or tenderness NEUROLOGICAL: Cranial nerves II through XII grossly intact. Normal speech, normal gait SKIN: Warm, Dry, normal turgor, no rashes or lesions noted. <Libia Diaz - Last Filed: 11/20/17 06:18> - Resident Resident Name: Pedro Jewell - ED Attending Attestation I have performed the following: I have examined & evaluated the patient, The case was reviewed & discussed with the resident, I agree w/resident's findings & plan - Medical Decision Making 11/20/17 20:55 Patient Name: ARTURO VALDEZ THIS IS A PRELIMINARY REPORT FROM [facility] DATE OF SERVICE: 2017-11-20 01:08:02 IMAGES: 35 EXAM: Venous duplex unilateral, left lower extremity HISTORY: Rule out DVT COMPARISON: None. FINDINGS: There is no DVT in the left lower extremity. IMPRESSION: No DVT. Stable for discharge <Mady Roberts - Last Filed: 11/20/17 20:55> Attestations - Attestations Documentation prepared by Libia Diaz, acting as medical charge entry specialist for Mady Roberts MD. <Libia Diaz - Last Filed: 11/20/17 06:18>
[2017-11-20 02:36] LABS: HEMOGLOBIN 10.4 GM/dL (10.7-15.3); MEAN PLT VOLUME 8.6 fl (7.5-11.1); WHITE BLOOD COUNT 3.7 K/mm3 (4.0-10.0)
[2017-11-20 02:41] LABS: HEMATOCRIT 31.3 % (32.4-45.2); MCH 29.1 pg (25.7-33.7); MCHC 33.1 g/dl (32.0-36.0); MEAN CELL VOLUME 87.9 fl (80-96); PLATELET COUNT 169 K/MM3 (134-434); RBC 3.57 M/mm3 (3.60-5.2); RDW 20.6 % (11.6-15.6)
[2017-11-20 02:46] LABS: INR 2.12 (0.82-1.09)
[2017-11-20 03:08] LABS: ALBUMIN 2.8 g/dl (3.4-5.0); ANION GAP 6 (8-16); BILIRUBIN,TOTAL 0.4 mg/dL (0.2-1.0); BLOOD UREA NITROGEN 13 mg/dL (7-18); CALCIUM 8.2 mg/dL (8.5-10.1); CHLORIDE 107 mmol/L (98-107); CO2 30 mmol/L (21-32); CREATININE 1.2 mg/dL (0.55-1.02); GLUCOSE,RANDOM 76 mg/dL (74-106); POTASSIUM 4.2 mmol/L (3.5-5.1); SGOT/AST 22 U/L (15-37); SGPT/ALT 28 U/L (12-78); SODIUM 143 mmol/L (136-145); TOT PROT 5.6 g/dl (6.4-8.2)
[2017-11-20 03:09] LABS: ALK PHOS 56 U/L (45-117)
[2017-11-20 03:12] LABS: PROTHROMBIN TIME (PATIENT) 23.9 SEC (9.7-13.0)
[2017-11-20 04:25] VITALS: BP 126/78; PULSE 89; TEMP 98.5
[2017-11-20 04:38] LABS: ANISOCYTOSIS 2+; OVALOCYTE 1+
--- NOTE | 2017-11-21 10:25 | EKG ---
Test Reason : Blood Pressure : / mmHG Vent. Rate : 058 BPM Atrial Rate : 058 BPM P-R Int : 130 ms QRS Dur : 082 ms QT Int : 416 ms P-R-T Axes : 037 010 036 degrees QTc Int : 408 ms SINUS BRADYCARDIA WITH SINUS ARRHYTHMIA POSSIBLE LEFT ATRIAL ENLARGEMENT BORDERLINE ECG WHEN COMPARED WITH ECG OF 13-AUG-2017 19:35, NO SIGNIFICANT CHANGE WAS FOUND Confirmed by FAN JARAMILLO MD ([id number]) on 11/21/2017 10:24:48 AM Referred By: Confirmed By:FAN JARAMILLO MD
== END 2017-11-20 04:38 ==
LOC: JER 00:23
DX: I83.812 Varicose veins of left lower extremity with pain (principal); I48.91 Unspecified atrial fibrillation; Z79.01 Long term (current) use of anticoagulants; Z86.718 Personal history of other venous thrombosis and embolism; I10 Essential (primary) hypertension; E78.00 Pure hypercholesterolemia, unspecified; E11.9 Type 2 diabetes mellitus without complications; K21.9 Gastro-esophageal reflux disease without esophagitis; Z85.850 Personal history of malignant neoplasm of thyroid; C90.00 Multiple myeloma not having achieved remission; E89.0 Postprocedural hypothyroidism
CPT/HCPCS: 36415; 80053; 84443; 85025; 85610; 93005; 93010; 93971-TC; 99282-25

== ENCOUNTER 2017-11-30 07:22 | Day surgery (SDC) | payer OTHER, BC, MEDICARE ==
[2017-11-30 09:25] LABS: BASO % 1.4 % (0-2.0); EOS % 2.4 % (0-4.5); HEMATOCRIT 33.5 % (32.4-45.2); LYMPH % 13.2 % (8-40); MCH 29.1 pg (25.7-33.7); MCHC 32.7 g/dl (32.0-36.0); MEAN PLT VOLUME 7.8 fl (7.5-11.1); MONO % 13.3 % (3.8-10.2); NEUT % 69.7 % (42.8-82.8); PLATELET COUNT 211 K/MM3 (134-434); RBC 3.77 M/mm3 (3.60-5.2); RDW 20.3 % (11.6-15.6); WHITE BLOOD COUNT 3.5 K/mm3 (4.0-10.0)
[2017-11-30] MEDS ORDERED: BORTEZOMIB (VELCADE) 2.5 MG/ML SUB-Q INJECTION SQ ONE (10:00)
[2017-11-30 10:03] LABS: ALBUMIN 2.8 g/dl (3.4-5.0); ALK PHOS 57 U/L (45-117); ANION GAP 10 (8-16); BILIRUBIN,DIRECT 0.2 mg/dL (0.0-0.2); BILIRUBIN,TOTAL 0.4 mg/dL (0.2-1.0); BILIRUBIN,TOTAL 0.5 mg/dL (0.2-1.0); BLOOD UREA NITROGEN 14 mg/dL (7-18); CALCIUM 8.6 mg/dL (8.5-10.1); CHLORIDE 108 mmol/L (98-107); CO2 27 mmol/L (21-32); GLUCOSE,RANDOM 119 mg/dL (74-106); LDH 217 U/L (84-246); MAGNESIUM 2.1 mg/dL (1.8-2.4); POTASSIUM 4.1 mmol/L (3.5-5.1); SGOT/AST 19 U/L (15-37); SGPT/ALT 23 U/L (12-78); SODIUM 145 mmol/L (136-145); TOT PROT 5.5 g/dl (6.4-8.2); TOT PROT 5.6 g/dl (6.4-8.2)
[2017-11-30 10:32] VITALS: BP 121/59; PULSE 51; TEMP 97.5
[2017-12-03 00:07] LABS: FREE KAPPA,SERUM 21.7 mg/L (3.3-19.4)
[2017-12-03 06:06] LABS: FREE KAP CHN UR 36.1 mg/L (1.35-24.19); KAPPA LAMBDA RATIO URIN 13.57 (2.04-10.37)
== END 2017-11-30 10:45 | disposition home or self-care (01) ==
LOC: JONCCHEMO 07:22 → J7W 10:20 → JONCCHEMO 10:45
PROVIDERS: ATTEND Internal Medicine Hematology & Oncology
DX: Z51.11 Encounter for antineoplastic chemotherapy (principal); C90.00 Multiple myeloma not having achieved remission
CPT/HCPCS: 36415; 80053; 80076; 83615; 83735; 83883; 84155; 84156; 84157; 84165; 85025; 86140; 96401; J9041

== ENCOUNTER 2017-12-14 07:25 | Day surgery (SDC) | payer OTHER, BC, MEDICARE ==
[2017-12-14 08:18] LABS: BASO % 1.1 % (0-2.0); EOS % 5.7 % (0-4.5); HEMATOCRIT 32.1 % (32.4-45.2); HEMOGLOBIN 10.6 GM/dL (10.7-15.3); LYMPH % 12.9 % (8-40); MCHC 33.2 g/dl (32.0-36.0); MEAN CELL VOLUME 87.2 fl (80-96); MEAN PLT VOLUME 8.5 fl (7.5-11.1); MONO % 15.3 % (3.8-10.2); PLATELET COUNT 190 K/MM3 (134-434); RBC 3.68 M/mm3 (3.60-5.2); WHITE BLOOD COUNT 3.7 K/mm3 (4.0-10.0)
[2017-12-14 08:47] LABS: CHLORIDE 107 mmol/L (98-107); POTASSIUM 3.7 mmol/L (3.5-5.1); SODIUM 143 mmol/L (136-145)
[2017-12-14 08:59] LABS: ALK PHOS 65 U/L (45-117); ANION GAP 9 MMOL/L (8-16); BILIRUBIN,DIRECT 0.2 mg/dL (0.0-0.2); BILIRUBIN,TOTAL 0.6 mg/dL (0.2-1.0); BLOOD UREA NITROGEN 10 mg/dL (7-18); CALCIUM 7.9 mg/dL (8.5-10.1); CO2 27 mmol/L (21-32); GLUCOSE,RANDOM 82 mg/dL (74-106); SGOT/AST 19 U/L (15-37); SGPT/ALT 27 U/L (12-78); TOT PROT 5.7 g/dl (6.4-8.2)
[2017-12-14] MEDS ORDERED: BORTEZOMIB (VELCADE) 2.5 MG/ML SUB-Q INJECTION SQ ONE (10:00)
[2017-12-14 10:29] VITALS: BP 107/51; PULSE 64; TEMP 98.2
== END 2017-12-14 10:30 | disposition home or self-care (01) ==
LOC: JONCCHEMO 07:25 → J7W 10:02 → JONCCHEMO 10:30
PROVIDERS: ATTEND Internal Medicine Hematology & Oncology
DX: Z51.11 Encounter for antineoplastic chemotherapy (principal); C90.00 Multiple myeloma not having achieved remission; E11.9 Type 2 diabetes mellitus without complications; E03.9 Hypothyroidism, unspecified; G62.9 Polyneuropathy, unspecified; Z86.718 Personal history of other venous thrombosis and embolism; Z90.710 Acquired absence of both cervix and uterus
CPT/HCPCS: 36415; 71120-TC-FY; 80048; 80076; 83735; 85025; 96401; J9041

== ENCOUNTER 2017-12-22 12:53 | Inpatient (IN) | payer OTHER, BC, MEDICARE ==
--- NOTE | 2017-12-22 13:48 | PDOC ---
History of Present Illness - General Chief Complaint: SIRS, Suspected/Possible Stated Complaint: WEAKNESS Time Seen by Provider: 12/22/17 13:16 History Source: Patient Exam Limitations: Dementia - History of Present Illness Initial Comments: 12/22/17 13:34 87 yo female pmh of DM type 2, cellulites unspecified toes, multiple myeloma ( on chemotherapy) DVT (on Coumadin) hypothyroid (thyroid removed) presents to the ED from [facility] for fevers. No dementia listed in patients history but AOX2 currently with no family members present and no one answering call at [facility]. Patient has no specific complaints and is not sure why she is in the hospital. Denies any positive ROS including fevers. Pt found to have a fever of 102.2 on arrival. Past History - Past Medical History Allergies/Adverse Reactions: Allergies Allergy/AdvReac Type Severity Reaction Status Date / Time No Known Allergies Allergy Verified 12/22/17 13:13 Home Medications: Ambulatory Orders Albuterol Sulfate [Proair Hfa] 8.5 gm IH Q6H PRN 08/13/17 Ammonium Lactate Cream [Lac-Hydrin] 1 applic TP DAILY 08/13/17 Atorvastatin Ca [Lipitor] 40 mg PO HS 08/13/17 Dexamethasone 4 mg PO WEEKLY 08/13/17 Docusate Sodium [Colace] 100 mg PO HS 08/13/17 Fluticasone Prop 0.05% Nasal [Flonase -] 2 spray NS DAILY 08/13/17 Furosemide [Lasix] 40 mg PO DAILY 08/13/17 Gabapentin 600 mg PO DAILY 08/13/17 Ibuprofen 600 mg PO Q6H PRN 08/13/17 Lenalidomide [Revlimid] 10 mg PO DAILY 08/13/17 Levomefolate/B6/B12/Algal Oil [Metanx Capsule] 1 each PO DAILY 08/13/17 Levothyroxine [Synthroid -] 75 mcg PO DAILY 08/13/17 Metoprolol Succinate 12.5 mg PO DAILY 08/13/17 Pantoprazole Sodium 40 mg PO DAILY 08/13/17 Pramipexole Di-HCl [Mirapex] 0.25 mg PO HS 08/13/17 Sennosides [Senna Lax] 8.6 mg PO HS 08/13/17 Valacyclovir HCl [Valtrex] 500 mg PO DAILY 08/13/17 Warfarin Sodium [Coumadin] 5 mg PO DAILY 08/13/17 Magnesium 250 mg PO DAILY 11/20/17 Meclizine HCl 25 mg PO DAILY 11/20/17 Potassium Chloride 20 meq PO BID 11/20/17 Warfarin Na [Coumadin Protocol] 4 each PO DAILY 11/20/17 Anemia: No Asthma: No Cancer: Yes (THYROID, MULTIPLE MYELOMA) Cardiac Disorders: Yes (afib/DVT) CVA: No COPD: No CHF: No Dementia: No Diabetes: Yes GI Disorders: No Disorders: No HTN: Yes Hypercholesterolemia: Yes Liver Disease: No Seizures: No Thyroid Disease: Yes (thyroid cancer, thyroidectomy done in 1999) - Surgical History Abdominal Surgery: Yes (exploratory lap) - Immunization History Immunization Up to Date: No - Suicide/Smoking/Psychosocial Hx Smoking Status: No Smoking History: Former smoker Have you smoked in the past 12 months: No Number of Cigarettes Smoked Daily: 0 If you are a former smoker, when did you quit?: 25 yrs ago Information on smoking cessation initiated: No Hx Alcohol Use: No Drug/Substance Use Hx: No Substance Use Type: None Hx Substance Use Treatment: No Review of Systems - Review of Systems Constitutional: No: Chills, Fever Respiratory: No: Shortness of Breath, Wheezing Cardiac (ROS): Yes: Edema (chronic, treated for DVTs on coumadin ). No: Chest Pain ABD/GI: No: Abdominal Distended, Constipated, Diarrhea : No: Burning, Dysuria, Discharge, Frequency, Flank Pain, Hematuria Musculoskeletal: No: Back Pain Neurological: No: Headache, Numbness, Weakness *Physical Exam - Vital Signs Last Vital Signs Temp Pulse Resp BP Pulse Ox 102.2 F H 84 18 131/62 97 12/22/17 13:14 12/22/17 13:14 12/22/17 13:14 12/22/17 13:14 12/22/17 13:14 - Physical Exam General Appearance: Yes: Nourished, Appropriately Dressed HEENT: positive: EOMI Neck: negative: Normal Thyroid (removed) Respiratory/Chest: positive: Lungs Clear, Normal Breath Sounds. negative: Chest Tender, Respiratory Distress Cardiovascular: positive: Regular Rhythm, Regular Rate, S1, S2, Edema (right leg , cellulitus ). negative: JVD, Murmur Gastrointestinal/Abdominal: positive: Normal Bowel Sounds. negative: Soft (LUQ and LLQ hard), Pulsatile Mass, Distended, Guarding, Rebound Extremity: positive: Normal Capillary Refill, Pedal Edema (bilaterally. Right sided cellulitis of foot with calf tenderness) ED Treatment Course - LABORATORY CBC & Chemistry Diagram: 12/22/17 15:00 12/22/17 15:00 Medical Decision Making - Medical Decision Making 12/22/17 15:45 87 yo female pmh of DM type 2, cellulites unspecified toes, multiple myeloma ( on chemotherapy) DVT (on Coumadin) hypothyroid (thyroid removed) presents to the ED from [facility] for fevers. No dementia listed in patients history but AOX2 currently with no family members present and no one answering call at [facility]. Found an oral temp of 102.2 Started a sepsis workup. On exam patient found to have cellulitis of the right foot and ankle. Bedside ultrasound negative for DVT. Waiting for official report First trop .06 Patient resting comfortably in bed, no current complaints but feels very hot on examination. Spoke with Dr. Rowe who agrees to admit patient ad consult Dr. Frazier for ID 12/22/17 19:41 Second trop went up to .11 Order changed to Tele inpatient *DC/Admit/Observation/Transfer Diagnosis at time of Disposition: Cellulitis Qualifiers: Site of cellulitis: extremity Site of cellulitis of extremity: lower extremity Laterality: right Qualified Code(s): L03.115 - Cellulitis of right lower limb - Discharge Dispostion Condition at time of disposition: Fair Decision to Admit order: Yes - Referrals - Patient Instructions - Post Discharge Activity
[2017-12-22] MEDS ORDERED: ACETAMINOPHEN 1000 MG/100 ML VIAL (NON FORMULARY) IVPB ONE (13:52)
[2017-12-22] MEDS ORDERED: VANCOMYCIN 1,000 MG in DEXTROSE 5%-WATER - 250 ML IVPB ONE (13:52)
[2017-12-22] MEDS ORDERED: PIPERACILLIN/TAZOB 4.5 GM 4.5 GM in DEXTROSE 5%-WATER 100 ML IVPB ONE (13:52)
[2017-12-22] MEDS ORDERED: PIPERACILLIN/TAZOB 4.5 GM 4.5 GM/100 ML BAG IVPB ONE (14:55)
[2017-12-22] MEDS ORDERED: ACETAMINOPHEN INJECTION 100 ML IVPB ONE (14:55)
[2017-12-22] MEDS ORDERED: VANCOMYCIN 1 GRAM (PRE-DOCKED) 1,000 MG/250 ML BAG IVPB ONE (15:29)
[2017-12-22 15:31] LABS: HEMATOCRIT 32.4 % (32.4-45.2); HEMOGLOBIN 10.8 GM/dL (10.7-15.3); MCH 29.3 pg (25.7-33.7); MCHC 33.2 g/dl (32.0-36.0); MEAN CELL VOLUME 88.1 fl (80-96); MEAN PLT VOLUME 9.1 fl (7.5-11.1); PLATELET COUNT 162 K/MM3 (134-434); RBC 3.68 M/mm3 (3.60-5.2); RDW 20.5 % (11.6-15.6)
--- NOTE | 2017-12-22 15:38 | PDOC ---
Attending Attestation - Resident Resident Name: Keo Gaffney - ED Attending Attestation I have performed the following: I have examined & evaluated the patient, The case was reviewed & discussed with the resident, I agree w/resident's findings & plan - HPI HPI: 12/22/17 15:36 87-year-old female with multiple medical problems including multiple myeloma, DVT on anticoagulation, diabetes presents from residential with generalized weakness today and fever. No localizing symptoms, no recent fall. - Physicial Exam PE: 12/22/17 15:37 febrile at 102.2, vitals are otherwise within normal limits Alert and generally well-appearing elderly woman lying in stretcher, coarse breath sounds at the bases bilaterally Abdomen is soft and nondistended Right leg swelling with warmth distally, medial ankle blister with rubor. Full range of motion of all joints without focal effusion - Medical Decision Making 12/22/17 15:38 87-year-old female presents from residential with fever, hemodynamically stable. Sepsis workup initiated Broad-spectrum antibiotics Repeat right leg Doppler, chest x-ray Admission 12/22/17 16:19 lactate 2.3, receiving ivf and abx. Cr wnl, trop 0.06. proceed with admission on tele Heart Score/ECG Review #1 ECG reviewed & interpreted by me at: 15:54 General ECG Interpretation: Sinus Rhythm (with APCs noted), Normal Rate (81), Normal Intervals (qtc 462), No acute ischemic changes
[2017-12-22 15:46] LABS: URINE APPEARANCE CLEAR; URINE BILIRUBIN NEGATIVE (<2.0 mg/dL); URINE COLOR STRAW; URINE GLUCOSE (UA) NEGATIVE (NEGATIVE); URINE KETONE NEGATIVE (NEGATIVE); URINE LEUK ESTERASE NEGATIVE (NEGATIVE); URINE NITRITE NEGATIVE (NEGATIVE); URINE PROTEIN NEGATIVE (NEGATIVE); URINE UROBILINOGEN NEGATIVE mg/dL (0.2-1.0)
[2017-12-22 15:51] LABS: VENOUS PC02 43.1 mmHg (38-52); VENOUS PH 7.39 (7.32-7.42); VENOUS PO2 20.2 mmHg (28-48)
[2017-12-22 16:00] LABS: ANION GAP 11 MMOL/L (8-16); BLOOD UREA NITROGEN 16 mg/dL (7-18); CALCIUM 8.3 mg/dL (8.5-10.1); CHLORIDE 104 mmol/L (98-107); CO2 26 mmol/L (21-32); GLUCOSE,RANDOM 67 mg/dL (74-106); POTASSIUM 3.9 mmol/L (3.5-5.1); SODIUM 141 mmol/L (136-145)
[2017-12-22 16:03] LABS: ALK PHOS 65 U/L (45-117); BILIRUBIN,TOTAL 1.9 mg/dL (0.2-1.0); CREATININE 1.2 mg/dL (0.55-1.02); SGOT/AST 51 U/L (15-37); SGPT/ALT 52 U/L (12-78)
[2017-12-22] MEDS ORDERED: SODIUM CHLORIDE 2,000 ML IV ONE (16:14)
[2017-12-22 16:36] LABS: INR 1.77 (0.83-1.09)
[2017-12-22 16:39] LABS: ACTIVATED PTT 34.1 SECONDS (25.2-36.5)
[2017-12-22 17:13] LABS: EPI CELLS RARE /HPF (FEW)
[2017-12-22 19:54] LABS: ANISOCYTOSIS 2+; MACROCYTOSIS 1+; PLATELET ESTIMATE ADEQUATE
[2017-12-22] MEDS ORDERED: ACETAMINOPHEN 325 MG TABLET (FP) PO ONE (22:07)
[2017-12-22] MEDS ORDERED: ACETAMINOPHEN 325 MG TABLET (FP) ONE (22:08)
[2017-12-22] MEDS ORDERED: WARFARIN NA 7.5 MG TABLET (FP) PO ONE (23:18)
[2017-12-23] MEDS: HEPARIN NA (PORCINE) 5,000 UNITS/ML 1ML VIAL SQ SCH ×3 (00:03→21:16)
[2017-12-23] MEDS: PIPERACILLIN/TAZOB 3.375 GM 3.375 GM in SODIUM CHLORIDE 100 ML IVPB SCH ×2 (01:08→09:30)
[2017-12-23 06:43] LABS: BASO % 0.2 % (0-2.0); EOS % 0.8 % (0-4.5); HEMATOCRIT 25.4 % (32.4-45.2); HEMOGLOBIN 8.5 GM/dL (10.7-15.3); LYMPH % 2.3 % (8-40); MCH 28.9 pg (25.7-33.7); MCHC 33.3 g/dl (32.0-36.0); MEAN CELL VOLUME 86.9 fl (80-96); MEAN PLT VOLUME 8.8 fl (7.5-11.1); NEUT % 83.7 % (42.8-82.8); PLATELET COUNT 105 K/MM3 (134-434); RBC 2.92 M/mm3 (3.60-5.2); RDW 20.4 % (11.6-15.6); WHITE BLOOD COUNT 5.4 K/mm3 (4.0-10.0)
[2017-12-23 06:51] LABS: INR 2.26 (0.83-1.09); PROTHROMBIN TIME (PATIENT) 25.5 SEC (9.7-13.0)
[2017-12-23 07:30] LABS: CHLORIDE 111 mmol/L (98-107); POTASSIUM 3.6 mmol/L (3.5-5.1); SODIUM 144 mmol/L (136-145)
[2017-12-23 07:42] LABS: ALBUMIN 2.1 g/dl (3.4-5.0); ALK PHOS 57 U/L (45-117); ANION GAP 10 MMOL/L (8-16); BILIRUBIN,TOTAL 2.3 mg/dL (0.2-1.0); BLOOD UREA NITROGEN 18 mg/dL (7-18); CO2 23 mmol/L (21-32); CREATININE 1.2 mg/dL (0.55-1.02); GLUCOSE,RANDOM 79 mg/dL (74-106); N-TERMINAL BNP 6411.34 pg/ml (5-450); PHOSPHOROUS 3.8 mg/dL (2.5-4.9); SGOT/AST 129 U/L (15-37); SGPT/ALT 86 U/L (12-78); TOT PROT 4.6 g/dl (6.4-8.2)
--- NOTE | 2017-12-23 09:10 | HP ---
Admitting History and Physical - Admission History of Present Illness: 87 yo female pmh of DM type 2, cellulites unspecified toes, multiple myeloma ( on chemotherapy) DVT (on Coumadin) hypothyroid (thyroid removed) presents to the ED from [facility] for fevers. No dementia listed in patients history but AOX2 currently with no family members present and no one answering call at [facility]. Found an oral temp of 102.2 Started a sepsis workup. On exam patient found to have cellulitis of the right foot and ankle. Bedside ultrasound negative for DVT. Waiting for official report First trop . 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 Cardiovascular: Yes: AFIB, HTN, Hyperlipdemia Gastrointestinal: Yes: GERD ...: No Heme/Onc: Yes: Other (Multiple myeloma) Endocrine: Yes: Diabetes Mellitus - Past Surgical History Past Surgical History: Yes: None (no significant history) - Advance Directives Advance Directives: Yes: Health Care Proxy - Smoking History Smoking history: Former smoker Have you smoked in the past 12 months: No Aproximately how many cigarettes per day: 0 If you are a former smoker, when did you quit?: 25 yrs ago - Alcohol/Substance Use Hx Alcohol Use: No History of Substance Use: reports: None - Social History History of Recent Travel: No Home Medications - Allergies Allergies/Adverse Reactions: Allergies Allergy/AdvReac Type Severity Reaction Status Date / Time No Known Allergies Allergy Verified 12/22/17 13:13 - Home Medications Home Medications: Ambulatory Orders Albuterol Sulfate [Proair Hfa] 8.5 gm IH Q6H PRN 08/13/17 Ammonium Lactate Cream [Lac-Hydrin] 1 applic TP DAILY 08/13/17 Atorvastatin Ca [Lipitor] 40 mg PO HS 08/13/17 Dexamethasone 4 mg PO WEEKLY 08/13/17 Docusate Sodium [Colace] 100 mg PO HS 08/13/17 Fluticasone Prop 0.05% Nasal [Flonase -] 2 spray NS DAILY 08/13/17 Furosemide [Lasix] 40 mg PO DAILY 08/13/17 Gabapentin 600 mg PO DAILY 08/13/17 Ibuprofen 600 mg PO Q6H PRN 08/13/17 Lenalidomide [Revlimid] 10 mg PO DAILY 08/13/17 Levomefolate/B6/B12/Algal Oil [Metanx Capsule] 1 each PO DAILY 08/13/17 Levothyroxine [Synthroid -] 75 mcg PO DAILY 08/13/17 Metoprolol Succinate 12.5 mg PO DAILY 08/13/17 Pantoprazole Sodium 40 mg PO DAILY 08/13/17 Pramipexole Di-HCl [Mirapex] 0.25 mg PO HS 08/13/17 Sennosides [Senna Lax] 8.6 mg PO HS 08/13/17 Valacyclovir HCl [Valtrex] 500 mg PO DAILY 08/13/17 Warfarin Sodium [Coumadin] 5 mg PO DAILY 08/13/17 Magnesium 250 mg PO DAILY 11/20/17 Meclizine HCl 25 mg PO DAILY 11/20/17 Potassium Chloride 20 meq PO BID 11/20/17 Warfarin Na [Coumadin Protocol] 4 each PO DAILY 11/20/17 Review of Systems - Review of Systems Cardiovascular: denies: Chest Pain Respiratory: denies: SOB Gastrointestinal: denies: Abdominal Pain Musculoskeletal: reports: Extremity Pain, Joint Swelling Integumentary: reports: Erythema Physical Examination Vital Signs: Vital Signs Temperature 98.7 F 12/23/17 02:17 Pulse Rate 78 12/23/17 02:17 Respiratory Rate 18 12/23/17 02:17 Blood Pressure 118/70 12/23/17 02:17 O2 Sat by Pulse Oximetry (%) 99 12/22/17 23:11 Cardiovascular: Yes: S1, S2 Respiratory: Yes: Regular, CTA Bilaterally Gastrointestinal: Yes: Normal Bowel Sounds, Soft Edema: Yes Edema: LLE: 1+, RLE: 2+ Integumentary: Yes: Erythema, Other (BULLOU OF RT LEG) Neurological: Yes: Alert, Oriented Labs: CBC, BMP 12/23/17 05:15 12/23/17 05:15 Problem List - Problems (1) Bullous disorder Assessment/Plan: -DERM AND SURGICAL CONSULT Code(s): L13.9 - BULLOUS DISORDER, UNSPECIFIED (2) Cellulitis Assessment/Plan: -IV ABX FOLLOW LABS Code(s): L03.90 - CELLULITIS, UNSPECIFIED Qualifiers: Site of cellulitis: extremity Site of cellulitis of extremity: lower extremity Laterality: right Qualified Code(s): L03.115 - Cellulitis of right lower limb (3) Atypical chest pain Assessment/Plan: -FOLLOW CE--TROP ELEVATED -EKG -CARDIO Code(s): R07.89 - OTHER CHEST PAIN (4) Fever Assessment/Plan: -CULTURES -IV ABX -ID CONSULT Code(s): R50.9 - FEVER, UNSPECIFIED (5) Leg pain Assessment/Plan: -DUPLEX NEG -SURGICAL CONSULT -ABX Code(s): M79.606 - PAIN IN LEG, UNSPECIFIED Qualifiers: Laterality: left Qualified Code(s): M79.605 - Pain in left leg (6) Multiple myeloma Code(s): C90.00 - MULTIPLE MYELOMA NOT HAVING ACHIEVED REMISSION
[2017-12-23] MEDS ORDERED: PT OWN MED DRAWER 7, Y5N ONE (09:21)
[2017-12-23] MEDS ORDERED: SODIUM CHLORIDE 100 ML IVPB ONE (09:21)
[2017-12-23] MEDS ORDERED: PIPERACILLIN/TAZOBACTAM 3.375 GM VIAL IVPB ONE (09:21)
[2017-12-23] MEDS: GABAPENTIN 300 MG CAPSULE (FP) PO SCH (09:31)
[2017-12-23] MEDS: POTASSIUM CHLORIDE TABS 20 MEQ TABLET.ER (FP) PO SCH ×2 (09:31→21:16)
[2017-12-23] MEDS: PANTOPRAZOLE 40 MG TABLET (FP) PO SCH (09:31)
[2017-12-23] MEDS: valACYclovir HCL 500 MG TABLET (FP) PO SCH (09:31)
[2017-12-23] MEDS: FUROSEMIDE 40 MG TABLET (FP) PO SCH (09:31)
[2017-12-23] MEDS: LEVOTHYROXINE NA 75 MCG TABLET (FP) PO SCH (09:47)
[2017-12-23 09:48] LABS: CALCIUM 6.9 mg/dL (8.5-10.1)
[2017-12-23] MEDS ORDERED: LENALIDOMIDE 10 MG PO SCH (10:00)
--- NOTE | 2017-12-23 10:32 | EKG ---
Test Reason : Blood Pressure : / mmHG Vent. Rate : 081 BPM Atrial Rate : 081 BPM P-R Int : 128 ms QRS Dur : 088 ms QT Int : 398 ms P-R-T Axes : 039 -01 022 degrees QTc Int : 462 ms SINUS RHYTHM WITH PREMATURE ATRIAL COMPLEXES POSSIBLE LEFT ATRIAL ENLARGEMENT LEFT VENTRICULAR HYPERTROPHY ABNORMAL ECG WHEN COMPARED WITH ECG OF 20-NOV-2017 00:50, PREMATURE ATRIAL COMPLEXES ARE NOW PRESENT QT HAS LENGTHENED Confirmed by GENEVA GUERRERO, LINDA ([id number]) on 12/23/2017 10:32:11 AM Referred By: Confirmed By:LINDA BEAN MD
--- NOTE | 2017-12-23 10:33 | EKG ---
Test Reason : Blood Pressure : / mmHG Vent. Rate : 076 BPM Atrial Rate : 076 BPM P-R Int : 126 ms QRS Dur : 088 ms QT Int : 388 ms P-R-T Axes : 047 -05 009 degrees QTc Int : 436 ms SINUS RHYTHM WITH PREMATURE ATRIAL COMPLEXES POSSIBLE LEFT ATRIAL ENLARGEMENT LEFT VENTRICULAR HYPERTROPHY ABNORMAL ECG WHEN COMPARED WITH ECG OF 22-DEC-2017 15:54, NO SIGNIFICANT CHANGE WAS FOUND Confirmed by GENEVA GUERRERO, LINDA ([id number]) on 12/23/2017 10:32:45 AM Referred By: RINA SALINAS Confirmed By:LINDA BEAN MD
[2017-12-23] MEDS: FLUTICASONE PROP 0.05% 16 GM NASAL SPRAY NS SCH (10:50)
[2017-12-23] MEDS: AMMONIUM LACTATE 12% LOTION 225 GM BOTTLE TP SCH (10:50)
[2017-12-23] MEDS: ACETAMINOPHEN 325 MG TABLET (FP) PO PRN ×2 (11:05→15:52)
[2017-12-23 12:20] LABS: ANISOCYTOSIS 1+; MACROCYTOSIS 0; OVALOCYTE 1+; PLATELET ESTIMATE DECREASED
--- NOTE | 2017-12-23 13:26 | CON.CARD ---
Consult Consult Specialty:: cardiology Referred by:: Jae Reason for Consultation:: positive trop - History of Present Illness Chief Complaint: leg pain History of Present Illness: 87F h/o DM, cellulitis, mult myeloma, afib and DVT on coumadin, hypothyroidism p /w fever, started on broad spectrum abx for cellulitis right foot and ankle. Trop 0.06-> 0.11->0.12. Sees Dr. Valentino in clinic, last seen 11/2017, was stable. Denies chest pain, sob, palps, dizziness, lightheadedness. Complains of foot and ankle pain. 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 Cardio/Vascular: Yes: AFIB, HTN, Hyperlipdemia Gastrointestinal: Yes: GERD ...: No Endocrine: Yes: Diabetes Mellitus - Past Surgical History Past Surgical History: Yes: None (no significant history) - Alcohol/Substance Use Hx Alcohol Use: No History of Substance Use: reports: None - Smoking History Smoking history: Former smoker Have you smoked in the past 12 months: No Aproximately how many cigarettes per day: 0 If you are a former smoker, when did you quit?: 25 yrs ago - Social History History of Recent Travel: No Home Medications - Allergies Allergies/Adverse Reactions: Allergies Allergy/AdvReac Type Severity Reaction Status Date / Time No Known Allergies Allergy Verified 12/22/17 13:13 - Home Medications Home Medications: Ambulatory Orders Albuterol Sulfate [Proair Hfa] 8.5 gm IH Q6H PRN 08/13/17 Ammonium Lactate Cream [Lac-Hydrin] 1 applic TP DAILY 08/13/17 Atorvastatin Ca [Lipitor] 40 mg PO HS 08/13/17 Dexamethasone 4 mg PO WEEKLY 08/13/17 Docusate Sodium [Colace] 100 mg PO HS 08/13/17 Fluticasone Prop 0.05% Nasal [Flonase -] 2 spray NS DAILY 08/13/17 Furosemide [Lasix] 40 mg PO DAILY 08/13/17 Gabapentin 600 mg PO DAILY 08/13/17 Ibuprofen 600 mg PO Q6H PRN 08/13/17 Lenalidomide [Revlimid] 10 mg PO DAILY 08/13/17 Levomefolate/B6/B12/Algal Oil [Metanx Capsule] 1 each PO DAILY 08/13/17 Levothyroxine [Synthroid -] 75 mcg PO DAILY 08/13/17 Metoprolol Succinate 12.5 mg PO DAILY 08/13/17 Pantoprazole Sodium 40 mg PO DAILY 08/13/17 Pramipexole Di-HCl [Mirapex] 0.25 mg PO HS 08/13/17 Sennosides [Senna Lax] 8.6 mg PO HS 08/13/17 Valacyclovir HCl [Valtrex] 500 mg PO DAILY 08/13/17 Warfarin Sodium [Coumadin] 5 mg PO DAILY 08/13/17 Magnesium 250 mg PO DAILY 11/20/17 Meclizine HCl 25 mg PO DAILY 11/20/17 Potassium Chloride 20 meq PO BID 11/20/17 Warfarin Na [Coumadin Protocol] 4 each PO DAILY 11/20/17 Family Disease History - Family Disease History Family History: Unremarkable Review of Systems - Review of Systems Constitutional: reports: No Symptoms Eyes: reports: No Symptoms HENT: reports: No Symptoms Neck: reports: No Symptoms Cardiovascular: reports: No Symptoms Respiratory: reports: No Symptoms Gastrointestinal: reports: No Symptoms Genitourinary: reports: No Symptoms Musculoskeletal: reports: Extremity Pain Integumentary: reports: No Symptoms Neurological: reports: No Symptoms Endocrine: reports: No Symptoms Hematology/Lymphatic: reports: No Symptoms Psychiatric: reports: No Symptoms Vital Signs: Vital Signs Temperature 98.7 F 12/23/17 10:00 Pulse Rate 76 12/23/17 10:00 Respiratory Rate 18 12/23/17 10:00 Blood Pressure 110/46 12/23/17 10:00 O2 Sat by Pulse Oximetry (%) 99 12/23/17 09:00 Constitutional: Yes: No Distress, Calm Eyes: Yes: Conjunctiva Clear, EOM Intact HENT: Yes: Atraumatic, Normocephalic Neck: Yes: Supple, Trachea Midline Respiratory: Yes: Regular, CTA Bilaterally Gastrointestinal: Yes: Normal Bowel Sounds, Soft Cardiovascular: Yes: Regular Rate and Rhythm Heart Sounds: Yes: S1, S2 Murmur: Yes: Systolic Murmur Extremities: Yes: Other (L ankle/foot erythema, tender to palpation) Edema: Yes Edema: LLE: 2+ Peripheral Pulses: 1+ Left Doralis Pedis, 1+ Right Dorsalis Pedis Integumentary: Yes: WNL Neurological: Yes: Alert, Oriented Psychiatric: Yes: Alert, Oriented - Other Data Labs, Other Data: CBC, BMP 12/23/17 05:15 12/23/17 05:15 INR, PTT INR 2.26 (0.83-1.09) H 12/23/17 05:15 Troponin, BNP 12/22/17 12/22/17 12/23/17 15:00 18:10 05:15 Troponin I 0.06 H 0.11 H 0.12 H B-Natriuretic Peptide 6411.34 H Troponin, BNP 12/22/17 12/22/17 12/23/17 15:00 18:10 05:15 Troponin I 0.06 H 0.11 H 0.12 H B-Natriuretic Peptide 6411.34 H Assessment/Plan MPI 2013 (damir): no STs; no ischemia; nl EF Echo 09/08: nl LV size and function, EF 55-60%, mild AR, RA mildly enlarged, mild -mod TR, aorta atherosclerotic plaque present Echo 2014: nl LVSF; nl RV; mild-mod AI; mod TR; RVSP 40-50 Carotids 12/09: minimal athero, normal velocity. EKG sinus with PACs, LVH srinivas lower ext venous ultrasound no DVT tele: sinus with PACs 87F h/o DM, cellulitis, mult myeloma, afib and DVT on coumadin, hypothyroidism p /w fever Positive troponin - 0.06->0.11->0.12, mild elevation with flat trend, asymptomatic - EKG not concerning for ischemia - less concerning for ACS, more likely demand ischemia in setting of infection fever, cellulitis - on broad spectrum abx - ID following Afib - sinus on tele - continue coumadin - metoprolol held, has had low BPs here - rate stable DVT - on warfarin HLD - cont statin DM - manage per primary team
--- NOTE | 2017-12-23 16:27 | CONSULT ---
Consult - text type - Consultation Consultation Note: 87 yo female pmh of DM type 2, cellulitis, multiple myeloma , well maintained on VRD, DVT (on Coumadin) hypothyroid presents to the ED from [facility] for fevers. She reports feeling well. Has a blister on her rt. foot and pain Past History - Past Medical History Allergies/Adverse Reactions: Allergies Allergy/AdvReac Type Severity Reaction Status Date / Time No Known Allergies Allergy Verified 12/22/17 13:13 Home Medications: Ambulatory Orders Albuterol Sulfate [Proair Hfa] 8.5 gm IH Q6H PRN 08/13/17 Ammonium Lactate Cream [Lac-Hydrin] 1 applic TP DAILY 08/13/17 Atorvastatin Ca [Lipitor] 40 mg PO HS 08/13/17 Dexamethasone 4 mg PO WEEKLY 08/13/17 Docusate Sodium [Colace] 100 mg PO HS 08/13/17 Fluticasone Prop 0.05% Nasal [Flonase -] 2 spray NS DAILY 08/13/17 Furosemide [Lasix] 40 mg PO DAILY 08/13/17 Gabapentin 600 mg PO DAILY 08/13/17 Ibuprofen 600 mg PO Q6H PRN 08/13/17 Lenalidomide [Revlimid] 10 mg PO DAILY 08/13/17 Levomefolate/B6/B12/Algal Oil [Metanx Capsule] 1 each PO DAILY 08/13/17 Levothyroxine [Synthroid -] 75 mcg PO DAILY 08/13/17 Metoprolol Succinate 12.5 mg PO DAILY 08/13/17 Pantoprazole Sodium 40 mg PO DAILY 08/13/17 Pramipexole Di-HCl [Mirapex] 0.25 mg PO HS 08/13/17 Sennosides [Senna Lax] 8.6 mg PO HS 08/13/17 Valacyclovir HCl [Valtrex] 500 mg PO DAILY 08/13/17 Warfarin Sodium [Coumadin] 5 mg PO DAILY 08/13/17 Magnesium 250 mg PO DAILY 11/20/17 Meclizine HCl 25 mg PO DAILY 11/20/17 Potassium Chloride 20 meq PO BID 11/20/17 Warfarin Na [Coumadin Protocol] 4 each PO DAILY 11/20/17 PMH Cancer: Yes (THYROID, MULTIPLE MYELOMA) Cardiac Disorders: Yes (afib/DVT) HTN: Yes Hypercholesterolemia: Yes Thyroid Disease: Yes (thyroid cancer, thyroidectomy done in 1999) - Surgical History Abdominal Surgery: Yes (exploratory lap) - Suicide/Smoking/Psychosocial Hx Smoking History: Former smoker *Physical Exam - Vital Signs Last Vital Signs Temp Pulse Resp BP Pulse Ox 102.2 F H 84 18 131/62 97 12/22/17 13:14 12/22/17 13:14 12/22/17 13:14 12/22/17 13:14 12/22/17 13:14 - Physical Exam General Appearance: Yes: Nourished, Appropriately Dressed Neck: negative: Normal Thyroid (removed) Respiratory/Chest: positive: Lungs Clear, Normal Breath Sounds. Cardiovascular: positive: Regular Rhythm, Regular Rate, S1, S2, Edema (right leg , cellulitus ). Gastrointestinal/Abdominal: positive: Normal Bowel Sounds. Rt. ankle wrapped A/P 87 yo female pmh of DM type 2, cellulitis , multiple myeloma (on chemotherapy) DVT (on Coumadin) hypothyroid (thyroid removed) presents to the ED from [facility] for fevers., rt. nkle blistering lesion/cellulitis On osyn/vnco holding revlimid/dexmethasone at this time ID follow up will follow
[2017-12-23] MEDS ORDERED: PIPERACILLIN/TAZOB 3.375 GM 3.375 GM in DEXTROSE 5%-WATER - 50 ML IVPB SCH (18:00)
[2017-12-23] MEDS ORDERED: WARFARIN NA 7.5 MG TABLET (FP) PO SCH (18:00)
[2017-12-23] MEDS ORDERED: DEXTROSE 5%-WATER - 50 ML IVPB ONE ×2 (18:07→23:53)
[2017-12-23] MEDS ORDERED: PIPERACILLIN/TAZOBACTAM 2.25 GM VIAL IVPB ONE ×2 (18:07→23:53)
[2017-12-23] MEDS: PIPERACILLIN/TAZOB 2.25 GM 2.25 GM in DEXTROSE 5%-WATER - 50 ML IVPB SCH (18:16)
[2017-12-23] MEDS: VANCOMYCIN 1 GM PREMIX - 1 GM/200 ML BAG IVPB SCH (19:45)
[2017-12-23] MEDS: ATORVASTATIN CA 40 MG TABLET (FP) PO SCH (21:16)
[2017-12-23] MEDS: PRAMIPEXOLE DIHYDROCHLORIDE 0.25 MG TABLET PO SCH (21:16)
[2017-12-23] MEDS: SENNOSIDES 8.6MG TABLET (FP) PO SCH (21:16)
[2017-12-23] MEDS: DOCUSATE SODIUM 100 MG CAPSULE (FP) PO SCH (21:16)
[2017-12-24] MEDS: PIPERACILLIN/TAZOB 2.25 GM 2.25 GM in DEXTROSE 5%-WATER - 50 ML IVPB SCH ×3 (01:23→17:05)
[2017-12-24] MEDS: ACETAMINOPHEN 325 MG TABLET (FP) PO PRN ×3 (01:23→21:21)
[2017-12-24] MEDS ORDERED: traMADol HCL 50 MG TABLET PO ONE (03:27)
[2017-12-24] MEDS: LEVOTHYROXINE NA 75 MCG TABLET (FP) PO SCH (06:27)
[2017-12-24] MEDS ORDERED: PT OWN MED DRAWER 7, Y5N ONE (09:23)
[2017-12-24] MEDS ORDERED: DEXTROSE 5%-WATER - 50 ML IVPB ONE ×2 (09:23→17:02)
[2017-12-24] MEDS ORDERED: PIPERACILLIN/TAZOBACTAM 2.25 GM VIAL IVPB ONE ×2 (09:23→17:02)
[2017-12-24] MEDS: POTASSIUM CHLORIDE TABS 20 MEQ TABLET.ER (FP) PO SCH (09:32)
[2017-12-24] MEDS: GABAPENTIN 300 MG CAPSULE (FP) PO SCH (09:32)
[2017-12-24] MEDS: PANTOPRAZOLE 40 MG TABLET (FP) PO SCH (09:32)
[2017-12-24] MEDS: valACYclovir HCL 500 MG TABLET (FP) PO SCH (09:32)
[2017-12-24] MEDS: AMMONIUM LACTATE 12% LOTION 225 GM BOTTLE TP SCH (09:33)
[2017-12-24] MEDS: FLUTICASONE PROP 0.05% 16 GM NASAL SPRAY NS SCH (09:33)
[2017-12-24] MEDS: HEPARIN NA (PORCINE) 5,000 UNITS/ML 1ML VIAL SQ SCH ×2 (09:33→21:19)
[2017-12-24] MEDS: FUROSEMIDE 40 MG TABLET (FP) PO SCH (09:33)
--- NOTE | 2017-12-24 10:13 | PN ---
Progress Note, Physician Chief Complaint: BLLE Cellulitis History of Present Illness: NAD in bed Seen by Cardiology - Current Medication List Current Medications: Active Medications Acetaminophen (Tylenol -) 650 mg PO Q4H PRN PRN Reason: FEVER Last Admin: 12/24/17 06:27 Dose: 650 mg Atorvastatin Calcium (Lipitor -) 40 mg PO HS [facility] Last Admin: 12/23/17 21:16 Dose: 40 mg Docusate Sodium (Colace -) 100 mg PO HS [facility] Last Admin: 12/23/17 21:16 Dose: 100 mg Fluticasone Propionate (Flonase -) 2 spray NS DAILY [facility] Last Admin: 12/24/17 09:33 Dose: 2 spray Furosemide (Lasix -) 40 mg PO DAILY [facility] Last Admin: 12/24/17 09:33 Dose: 40 mg Gabapentin (Neurontin -) 600 mg PO DAILY [facility] Last Admin: 12/24/17 09:32 Dose: 600 mg Heparin Sodium (Porcine) (Heparin -) 5,000 unit SQ BID [facility] Last Admin: 12/24/17 09:33 Dose: 5,000 unit Piperacillin Sod/Tazobactam (Sod 2.25 gm/ Dextrose) 50 mls @ 100 mls/hr IVPB Q8H-IV [facility]; Protocol Last Admin: 12/24/17 09:33 Dose: 100 mls/hr Vancomycin HCl (Vancomycin 1 Gm Premix -) 1 gm in 200 mls @ 133.333 mls/hr IVPB Q24H [facility]; Protocol Last Admin: 12/23/17 19:45 Dose: 133.333 mls/hr Lactic Acid (Lac-Hydrin 12) 1 applic TP DAILY [facility] Last Admin: 12/24/17 09:33 Dose: 1 applic Levothyroxine Sodium (Synthroid -) 75 mcg PO DAILY@0700 [facility] Last Admin: 12/24/17 06:27 Dose: 75 mcg Pantoprazole Sodium (Protonix -) 40 mg PO DAILY [facility] Last Admin: 12/24/17 09:32 Dose: 40 mg Potassium Chloride (K-Dur -) 20 meq PO BID [facility] Last Admin: 12/24/17 09:32 Dose: 20 meq Pramipexole Dihydrochloride (Mirapex -) 0.25 mg PO HS [facility] Last Admin: 12/23/17 21:16 Dose: 0.25 mg Senna (Senna -) 1 tab PO HS [facility] Last Admin: 12/23/17 21:16 Dose: 1 tab Valacyclovir HCl (Valtrex -) 500 mg PO DAILY [facility] Last Admin: 12/24/17 09:32 Dose: 500 mg Warfarin Sodium (Coumadin -) 7.5 mg PO DAILY@1800 [facility] Last Admin: 12/23/17 17:04 Dose: 7.5 mg - Objective Vital Signs: Vital Signs Temperature 100.3 F H 12/24/17 05:00 Pulse Rate 73 12/24/17 05:00 Respiratory Rate 18 12/24/17 05:00 Blood Pressure 120/48 12/24/17 05:00 O2 Sat by Pulse Oximetry (%) 97 12/23/17 20:00 Constitutional: Yes: Well Nourished, No Distress, Calm Cardiovascular: Yes: Regular Rate and Rhythm Respiratory: Yes: Regular Gastrointestinal: Yes: Normal Bowel Sounds, Soft Musculoskeletal: Yes: Muscle Weakness Extremities: Yes: Other (BLLE warm to touch) Edema: Yes (BLLE edema) Neurological: Yes: Alert, Oriented Psychiatric: Yes: Alert, Oriented Labs: CBC, BMP 12/23/17 05:15 12/23/17 05:15 INR, PTT INR 2.26 (0.83-1.09) H 12/23/17 05:15 Problem List - Problems (1) Cellulitis Assessment/Plan: -ID consult -IV abx -acetaminophen 650 mg po Q6H PRN for fever >100.0 F or Pain of 1-3 Code(s): L03.90 - CELLULITIS, UNSPECIFIED Qualifiers: Site of cellulitis: extremity Site of cellulitis of extremity: lower extremity Laterality: right Qualified Code(s): L03.115 - Cellulitis of right lower limb (2) Afib Assessment/Plan: -chronic -controlled -On Warfaring -INR today pending -check daily INR's -d/c tele Code(s): I48.91 - UNSPECIFIED ATRIAL FIBRILLATION (3) Multiple myeloma Assessment/Plan: -Seen by Oncology Code(s): C90.00 - MULTIPLE MYELOMA NOT HAVING ACHIEVED REMISSION (4) Elevated troponin Assessment/Plan: -2/2 to demand ischemia due to acute infection Code(s): R74.8 - ABNORMAL LEVELS OF OTHER SERUM ENZYMES (5) Anemia Assessment/Plan: -check iron stores, thyroid, B12 and stool ob -monitor trend Code(s): D64.9 - ANEMIA, UNSPECIFIED Assessment/Plan see problem list physical therapy
[2017-12-24 10:57] LABS: BASO % 0.6 % (0-2.0); EOS % 1.6 % (0-4.5); HEMATOCRIT 28.4 % (32.4-45.2); HEMOGLOBIN 9.4 GM/dL (10.7-15.3); LYMPH % 2.9 % (8-40); MCH 29.2 pg (25.7-33.7); MCHC 33.3 g/dl (32.0-36.0); MEAN CELL VOLUME 87.7 fl (80-96); MEAN PLT VOLUME 8.1 fl (7.5-11.1); MONO % 13.7 % (3.8-10.2); NEUT % 81.2 % (42.8-82.8); PLATELET COUNT 125 K/MM3 (134-434); RBC 3.24 M/mm3 (3.60-5.2); RDW 20.3 % (11.6-15.6); WHITE BLOOD COUNT 6.7 K/mm3 (4.0-10.0)
--- NOTE | 2017-12-24 11:13 | PN ---
Progress Note (short form) - Note Progress Note: s: no cp sob palps dizzy o: Vital Signs Period Temp Pulse Resp BP Sys/Ferrer Pulse Ox Last 24 Hr 98.9 F-102.7 F 70-91 16-20 93-128/45-67 97-97 Constitutional: Yes: No Distress, Calm Eyes: Yes: Conjunctiva Clear Respiratory: Yes: Regular, CTA Bilaterally Gastrointestinal: Yes: Normal Bowel Sounds, Soft Cardiovascular: Yes: Regular Rate and Rhythm Heart Sounds: Yes: S1, S2 Murmur: Yes: Systolic Murmur Extremities: Yes: Other (L ankle/foot erythema, tender to palpation) Edema: Yes Edema: LLE: 2+ no jaundice diaphoresis Neurological: Yes: Alert, Oriented Current Medications Generic Name Dose Route Start Last Admin Trade Name Freq PRN Reason Stop Dose Admin Acetaminophen 650 mg 12/24/17 10:20 Tylenol - PO Q4H PRN PAIN OR FEVER Atorvastatin Calcium 40 mg 12/23/17 22:00 12/23/17 21:16 Lipitor - PO 40 mg HS [facility] Administration Docusate Sodium 100 mg 12/23/17 22:00 12/23/17 21:16 Colace - PO 100 mg HS [facility] Administration Fluticasone Propionate 2 spray 12/23/17 10:00 12/24/17 09:33 Flonase - NS 2 spray DAILY [facility] Administration Furosemide 40 mg 12/23/17 10:00 12/24/17 09:33 Lasix - PO 40 mg DAILY [facility] Administration Gabapentin 600 mg 12/23/17 10:00 12/24/17 09:32 Neurontin - PO 600 mg DAILY [facility] Administration Heparin Sodium (Porcine) 5,000 unit 12/22/17 23:30 12/24/17 09:33 Heparin - SQ 5,000 unit BID [facility] Administration Piperacillin Sod/Tazobactam 50 mls @ 100 mls/hr 12/23/17 18:00 12/24/17 09:33 Sod 2.25 gm/ Dextrose IVPB 100 mls/hr Q8H-IV [facility] Administration Protocol Vancomycin HCl 1 gm in 200 mls @ 133.333 mls/hr 12/23/17 18:00 12/23/17 19:45 Vancomycin 1 Gm Premix - IVPB 133.333 mls/hr Q24H [facility] Administration Protocol Lactic Acid 1 applic 12/23/17 10:00 12/24/17 09:33 Lac-Hydrin 12 TP 1 applic DAILY [facility] Administration Levothyroxine Sodium 75 mcg 12/23/17 07:00 12/24/17 06:27 Synthroid - PO 75 mcg DAILY@0700 [facility] Administration Pantoprazole Sodium 40 mg 12/23/17 10:00 12/24/17 09:32 Protonix - PO 40 mg DAILY [facility] Administration Potassium Chloride 20 meq 12/23/17 10:00 12/24/17 09:32 K-Dur - PO 20 meq BID [facility] Administration Pramipexole Dihydrochloride 0.25 mg 12/23/17 22:00 12/23/17 21:16 Mirapex - PO 0.25 mg HS [facility] Administration Senna 1 tab 12/23/17 22:00 12/23/17 21:16 Senna - PO 1 tab HS [facility] Administration Tramadol HCl 50 mg 12/24/17 10:19 Ultram - PO Q8H PRN PAIN LEVEL 6-10 Valacyclovir HCl 500 mg 12/23/17 10:00 12/24/17 09:32 Valtrex - PO 500 mg DAILY [facility] Administration Warfarin Sodium 7.5 mg 12/23/17 18:00 12/23/17 17:04 Coumadin - PO 7.5 mg DAILY@1800 [facility] Administration CBC, BMP 12/24/17 10:40 Assessment/Plan MPI 2013 (damir): no STs; no ischemia; nl EF Echo 09/08: nl LV size and function, EF 55-60%, mild AR, RA mildly enlarged, mild -mod TR, aorta atherosclerotic plaque present Echo 2014: nl LVSF; nl RV; mild-mod AI; mod TR; RVSP 40-50 Carotids 12/09: minimal athero, normal velocity. EKG sinus with PACs, LVH srinivas lower ext venous ultrasound no DVT tele: sinus with PACs, brief atrial run 87F h/o DM, cellulitis, mult myeloma, afib and DVT on coumadin, hypothyroidism p /w fever Positive troponin - 0.06->0.11->0.12, mild elevation with flat trend, asymptomatic. not c/w acs. - EKG not concerning for ischemia fever, cellulitis - on broad spectrum abx - ID following Afib - sinus on tele - continue coumadin - metoprolol held, has had low BPs here - rate stable DVT - on warfarin HLD - cont statin DM - manage per primary team dc tele
[2017-12-24 11:46] LABS: PROTHROMBIN TIME (PATIENT) 70.6 SEC (9.7-13.0)
[2017-12-24 11:59] LABS: ANION GAP 8 MMOL/L (8-16); BLOOD UREA NITROGEN 13 mg/dL (7-18); CHLORIDE 107 mmol/L (98-107); CO2 24 mmol/L (21-32); GLUCOSE,RANDOM 75 mg/dL (74-106); POTASSIUM 3.3 mmol/L (3.5-5.1); SODIUM 139 mmol/L (136-145)
[2017-12-24 12:01] LABS: INR 6.25 (0.83-1.09)
[2017-12-24 12:03] LABS: ALK PHOS 73 U/L (45-117); BILIRUBIN,TOTAL 0.9 mg/dL (0.2-1.0); CREATININE 1.4 mg/dL (0.55-1.02); SGOT/AST 75 U/L (15-37); SGPT/ALT 80 U/L (12-78)
--- NOTE | 2017-12-24 12:29 | PN ---
Progress Note (short form) - Note Progress Note: ID Consult dictated Cellulitis R LE R/O sepsis secondary to skin source Myeloma Diabetes mellitus Pending c/s continue empiric vancomycin/ zosyn
--- NOTE | 2017-12-24 13:03 | CONS ---
DATE OF CONSULTATION: DATE OF DICTATION: 12/24/2017 HISTORY OF PRESENT ILLNESS: An 87-year-old female evaluated for cellulitis of the right lower extremity. She was admitted to the hospital on December 22, 2017. She was brought to the emergency room from [facility] for independent [facility] assisted living for evaluation of fever. She was noted to have a cellulitis of the right lower extremity. Her course has been complicated by high-grade fever. Patient denies any trauma to the right lower extremity. Denies any falls. No insect or animal bites or scratches. She denies any history of serious soft tissue infection requiring hospitalization or history of MRSA. She is currently on chemotherapy for multiple myeloma. On review of her chart she did have a positive wound culture for MRSA, left foot wound, from 2014. PAST MEDICAL HISTORY: Positive for multiple myeloma on Revlimid and dexamethasone, history of diabetes mellitus, DVT, hypothyroidism, thyroid cancer. PAST SURGICAL HISTORY: Status post thyroidectomy and exploratory laparotomy. ALLERGIES: No known allergies. MEDICATIONS: Albuterol; Lipitor; dexamethasone; Lasix; Neurontin; Synthroid; metoprolol; Protonix; Valtrex; Coumadin. SOCIAL HISTORY: Former smoker. SYSTEMS REVIEW: Neurologic: No loss of consciousness, seizure activity, focal weakness. Cardiac: Negative chest pain or palpitations. Respiratory: Negative cough or sputum production. Gastrointestinal: Negative vomiting or diarrhea. Genitourinary: Negative for urinary tract infection. LABORATORY DATA: White count 6.7, platelets 125. Creatinine 1.4. Blood and urine cultures pending. Chest x-ray negative for acute infiltrate. Doppler exam negative for DVT. PHYSICAL EXAMINATION:General: She is awake and alert. She is not acutely toxic appearing. Vital Signs: Temperature 98.2, T-max 102.7, blood pressure 128/67, pulse 91, regular, respirations 18 per minute.HEENT: Sclerae are anicteric. Cardiac: Heart sounds S1, S2. Lungs: Clear. Abdomen: Soft. No tenderness elicited. Extremities: Examination of the lower extremities: There is diffuse swelling of the right lower extremity from below the knee to the foot. There is a large bullous lesion approximately 7 x 7 cm involving the medial aspect of the distal right lower extremity above the medial malleolus. There is an area of erythema and warmth. IMPRESSION: 1. Cellulitis of the right lower extremity. 2. High-grade fever, rule out sepsis secondary to skin source. 3. Multiple myeloma. 4. Diabetes mellitus. RECOMMENDATIONS: Pending cultures continue empiric antibiotic coverage with vancomycin and Zosyn adjusted for advanced age and azotemia. Elevation. Analgesics. Will follow. Thank you for the kind referral. MADALYN COMBS M.D. [id number]
[2017-12-24] MEDS: VANCOMYCIN 1 GM PREMIX - 1 GM/200 ML BAG IVPB SCH (17:06)
--- NOTE | 2017-12-24 19:55 | CONSULT ---
Consult Consult Specialty:: endocrine Referred by:: dr.annabi roque Reason for Consultation:: hypothyroidism - History of Present Illness Chief Complaint: weakness and swelling legs History of Present Illness: 87 yo female pmh of DM type 2, cellulites unspecified toes, multiple myeloma ( on chemotherapy) DVT (on Coumadin) thyroid cancer sp hypothyroid (thyroid removed) presents to the ED from [facility] for fevers. No dementia listed in patients history but AOX2 currently has weakness poor appetite nausea and anxiety about leg swelling and infection. 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 Cardio/Vascular: Yes: AFIB, HTN, Hyperlipdemia Gastrointestinal: Yes: GERD ...: No Endocrine: Yes: Diabetes Mellitus - Past Surgical History Past Surgical History: Yes: None (no significant history) - Alcohol/Substance Use Hx Alcohol Use: No History of Substance Use: reports: None - Smoking History Smoking history: Former smoker Have you smoked in the past 12 months: No Aproximately how many cigarettes per day: 0 If you are a former smoker, when did you quit?: 25 yrs ago - Social History History of Recent Travel: No Home Medications - Allergies Allergies/Adverse Reactions: Allergies Allergy/AdvReac Type Severity Reaction Status Date / Time No Known Allergies Allergy Verified 12/22/17 13:13 - Home Medications Home Medications: Ambulatory Orders Albuterol Sulfate [Proair Hfa] 8.5 gm IH Q6H PRN 08/13/17 Ammonium Lactate Cream [Lac-Hydrin] 1 applic TP DAILY 08/13/17 Atorvastatin Ca [Lipitor] 40 mg PO HS 08/13/17 Dexamethasone 4 mg PO WEEKLY 08/13/17 Docusate Sodium [Colace] 100 mg PO HS 08/13/17 Fluticasone Prop 0.05% Nasal [Flonase -] 2 spray NS DAILY 08/13/17 Furosemide [Lasix] 40 mg PO DAILY 08/13/17 Gabapentin 600 mg PO DAILY 08/13/17 Ibuprofen 600 mg PO Q6H PRN 08/13/17 Lenalidomide [Revlimid] 10 mg PO DAILY 08/13/17 Levomefolate/B6/B12/Algal Oil [Metanx Capsule] 1 each PO DAILY 08/13/17 Levothyroxine [Synthroid -] 75 mcg PO DAILY 08/13/17 Metoprolol Succinate 12.5 mg PO DAILY 08/13/17 Pantoprazole Sodium 40 mg PO DAILY 08/13/17 Pramipexole Di-HCl [Mirapex] 0.25 mg PO HS 08/13/17 Sennosides [Senna Lax] 8.6 mg PO HS 08/13/17 Valacyclovir HCl [Valtrex] 500 mg PO DAILY 08/13/17 Warfarin Sodium [Coumadin] 5 mg PO DAILY 08/13/17 Magnesium 250 mg PO DAILY 11/20/17 Meclizine HCl 25 mg PO DAILY 11/20/17 Potassium Chloride 20 meq PO BID 11/20/17 Warfarin Na [Coumadin Protocol] 4 each PO DAILY 11/20/17 Review of Systems - Review of Systems Constitutional: reports: Lethargy, Weakness Eyes: reports: No Symptoms HENT: reports: Throat Pain Neck: reports: No Symptoms Cardiovascular: reports: Shortness of Breath Respiratory: reports: SOB on Exertion Gastrointestinal: reports: Bloating Genitourinary: reports: No Symptoms Breasts: reports: No Symptoms Reported Musculoskeletal: reports: Joint Swelling, Muscle Cramps Integumentary: reports: Rash Neurological: reports: Dizziness, Weakness Endocrine: reports: Unexplained Weight Loss Physical Exam Vital Signs: Vital Signs Temperature 97.1 F L 12/24/17 17:00 Pulse Rate 82 12/24/17 17:00 Respiratory Rate 20 12/24/17 17:00 Blood Pressure 163/48 12/24/17 17:00 O2 Sat by Pulse Oximetry (%) 97 12/24/17 09:00 Constitutional: Yes: Anxious Eyes: Yes: EOM Intact HENT: Yes: Normocephalic Neck: Yes: Trachea Midline Cardiovascular: Yes: Regular Rate and Rhythm Respiratory: Yes: CTA Bilaterally Gastrointestinal: Yes: Normal Bowel Sounds ...Rectal Exam: Yes: Deferred Renal/: Yes: WNL Breast(s): Yes: WNL Musculoskeletal: Yes: Muscle Pain, Muscle Weakness Extremities: Yes: Delayed Capillary Refill Integumentary: Yes: Rash, Onychomycosis, Venous Stasis Changes Wound/Incision: Yes: Well Approximated, Excoriated Neurological: Yes: Alert, Oriented Labs: CBC, BMP 12/24/17 10:40 12/24/17 10:40 Problem List - Problems (1) Anemia Code(s): D64.9 - ANEMIA, UNSPECIFIED Qualifiers: Anemia type: B12 deficiency 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 (2) Bullous disorder Code(s): L13.9 - BULLOUS DISORDER, UNSPECIFIED (3) Cellulitis Code(s): L03.90 - CELLULITIS, UNSPECIFIED Qualifiers: Site of cellulitis: extremity Site of cellulitis of extremity: lower extremity Laterality: right Qualified Code(s): L03.115 - Cellulitis of right lower limb (4) Elevated troponin Code(s): R74.8 - ABNORMAL LEVELS OF OTHER SERUM ENZYMES (5) Afib Code(s): I48.91 - UNSPECIFIED ATRIAL FIBRILLATION (6) Atypical chest pain Code(s): R07.89 - OTHER CHEST PAIN (7) Avulsion, skin Code(s): T14.8 - OTHER INJURY OF UNSPECIFIED BODY REGION * DO NOT USE * (8) Bradycardia Code(s): R00.1 - BRADYCARDIA, UNSPECIFIED Assessment/Plan Current Active Problems Anemia (Acute) Bullous disorder (Acute) Cellulitis (Acute) Elevated troponin (Acute) hypothyroid thyroid neoplasm Laboratory Results - last 24 hr 12/23/17 12/24/17 12/24/17 21:21 10:40 10:40 WBC 6.7 RBC 3.24 L Hgb 9.4 L Hct 28.4 L MCV 87.7 MCH 29.2 MCHC 33.3 RDW 20.3 H Plt Count 125 L MPV 8.1 Absolute Neuts (auto) 5.4 Neutrophils % 81.2 Lymphocytes % 2.9 L D Monocytes % 13.7 H Eosinophils % 1.6 D Basophils % 0.6 Nucleated RBC % 0 PT with INR 70.60 H INR 6.25 H* Sodium Potassium Chloride Carbon Dioxide Anion Gap BUN Creatinine Creat Clearance w eGFR POC Glucometer 139 Random Glucose Calcium Ferritin Total Bilirubin AST ALT Alkaline Phosphatase Total Protein Albumin Vitamin B12 TSH Free T4 12/24/17 12/24/17 10:40 10:40 WBC RBC Hgb Hct MCV MCH MCHC RDW Plt Count MPV Absolute Neuts (auto) Neutrophils % Lymphocytes % Monocytes % Eosinophils % Basophils % Nucleated RBC % PT with INR INR Sodium 139 Potassium 3.3 L Chloride 107 Carbon Dioxide 24 Anion Gap 8 BUN 13 Creatinine 1.4 H Creat Clearance w eGFR 35.74 POC Glucometer Random Glucose 75 Calcium 7.0 L Ferritin 253.9 Total Bilirubin 0.9 AST 75 H ALT 80 H Alkaline Phosphatase 73 D Total Protein 5.0 L Albumin 2.0 L Vitamin B12 2610 H TSH 0.75 Free T4 1.24 plan: synthroid 75 mcg daily chk [id number] vascular consult local wound care antibiotics
[2017-12-24] MEDS: DOCUSATE SODIUM 100 MG CAPSULE (FP) PO SCH (21:19)
[2017-12-24] MEDS: SENNOSIDES 8.6MG TABLET (FP) PO SCH (21:20)
[2017-12-24] MEDS: ATORVASTATIN CA 40 MG TABLET (FP) PO SCH (21:20)
[2017-12-24] MEDS: PRAMIPEXOLE DIHYDROCHLORIDE 0.25 MG TABLET PO SCH (22:58)
--- NOTE | 2017-12-24 23:20 | PN ---
Progress Note (short form) - Note Progress Note: Patient seen and examined c/o RLE pain/swelling RLE duplex was negative AFVSS Cor: RSR, No murmurs, No gallops Lungs: Clear to P&A Abd: Soft, Normal bowel sounds, No organomegaly Ext: RLE edema Abnormal Lab Results 12/24/17 12/24/17 12/24/17 10:40 10:40 10:40 RBC 3.24 L Hgb 9.4 L Hct 28.4 L RDW 20.3 H Plt Count 125 L Lymphocytes % 2.9 L D Monocytes % 13.7 H PT with INR 70.60 H INR 6.25 H* Potassium 3.3 L Creatinine 1.4 H Calcium 7.0 L Iron TIBC Iron Saturation AST 75 H ALT 80 H Total Protein 5.0 L Albumin 2.0 L Vitamin B12 12/24/17 12/24/17 12/25/17 10:40 10:40 05:30 RBC 3.24 L Hgb 9.4 L Hct 28.0 L RDW 20.0 H Plt Count 121 L Lymphocytes % 3.8 L D Monocytes % 14.1 H PT with INR INR Potassium Creatinine Calcium Iron 8 L TIBC 218 L Iron Saturation 4 L AST ALT Total Protein Albumin Vitamin B12 2610 H 12/25/17 05:30 RBC Hgb Hct RDW Plt Count Lymphocytes % Monocytes % PT with INR 83.20 H INR 7.36 H* Potassium Creatinine Calcium Iron TIBC Iron Saturation AST ALT Total Protein Albumin Vitamin B12 MEds reviewed A/P 87 yo female pmh of DM type 2, cellulitis , multiple myeloma (on chemotherapy) DVT (on Coumadin) hypothyroid (thyroid removed) [facility] rt. nkle blistering lesion/cellulitis On zosyn/vnco holding revlimid/dexmethasone at this time ID follow up will follow
[2017-12-25] MEDS ORDERED: PIPERACILLIN/TAZOBACTAM 2.25 GM VIAL IVPB ONE ×3 (01:46→16:37)
[2017-12-25] MEDS ORDERED: DEXTROSE 5%-WATER - 50 ML IVPB ONE ×3 (01:47→16:37)
[2017-12-25] MEDS: traMADol HCL 50 MG TABLET PO PRN ×2 (01:49→08:53)
[2017-12-25] MEDS: PIPERACILLIN/TAZOB 2.25 GM 2.25 GM in DEXTROSE 5%-WATER - 50 ML IVPB SCH ×3 (02:14→17:58)
[2017-12-25 06:36] LABS: SERUM IRON SATURATION 4 % (15-55); TOTAL IRON BINDING CAPACITY 218 ug/dL (250-450); UIBC 210 ug/dL (118-369)
[2017-12-25] MEDS: LEVOTHYROXINE NA 75 MCG TABLET (FP) PO SCH (06:49)
[2017-12-25] MEDS: ACETAMINOPHEN 325 MG TABLET (FP) PO PRN ×3 (06:50→21:30)
[2017-12-25 07:39] LABS: BASO % 0.7 % (0-2.0); EOS % 1.7 % (0-4.5); HEMOGLOBIN 9.4 GM/dL (10.7-15.3); LYMPH % 3.8 % (8-40); MCH 28.8 pg (25.7-33.7); MCHC 33.4 g/dl (32.0-36.0); MEAN CELL VOLUME 86.2 fl (80-96); MEAN PLT VOLUME 8.8 fl (7.5-11.1); MONO % 14.1 % (3.8-10.2); NEUT % 79.7 % (42.8-82.8); PLATELET COUNT 121 K/MM3 (134-434); RBC 3.24 M/mm3 (3.60-5.2); WHITE BLOOD COUNT 6.7 K/mm3 (4.0-10.0)
[2017-12-25 07:58] LABS: PROTHROMBIN TIME (PATIENT) 83.2 SEC (9.7-13.0)
[2017-12-25 08:19] LABS: INR 7.36 (0.83-1.09)
[2017-12-25 08:56] LABS: ALBUMIN 1.9 g/dl (3.4-5.0); ALK PHOS 78 U/L (45-117); ANION GAP 5 MMOL/L (8-16); BILIRUBIN,TOTAL 0.9 mg/dL (0.2-1.0); BLOOD UREA NITROGEN 14 mg/dL (7-18); CALCIUM 7.2 mg/dL (8.5-10.1); CHLORIDE 110 mmol/L (98-107); CO2 24 mmol/L (21-32); CREATININE 1.3 mg/dL (0.55-1.02); GLUCOSE,RANDOM 58 mg/dL (74-106); POTASSIUM 3.8 mmol/L (3.5-5.1); SGOT/AST 51 U/L (15-37); SGPT/ALT 67 U/L (12-78); SODIUM 139 mmol/L (136-145); TOT PROT 4.9 g/dl (6.4-8.2)
[2017-12-25] MEDS ORDERED: PHYTONADIONE 10 MG/1 ML AMP SQ ONE (09:00)
[2017-12-25] MEDS: HEPARIN NA (PORCINE) 5,000 UNITS/ML 1ML VIAL SQ SCH ×2 (09:06→21:33)
[2017-12-25] MEDS: POTASSIUM CHLORIDE TABS 10 MEQ TABLET.ER (FP) PO SCH (09:06)
[2017-12-25] MEDS: GABAPENTIN 300 MG CAPSULE (FP) PO SCH (09:08)
[2017-12-25] MEDS: FUROSEMIDE 40 MG TABLET (FP) PO SCH (09:10)
[2017-12-25] MEDS: PANTOPRAZOLE 40 MG TABLET (FP) PO SCH (09:11)
[2017-12-25] MEDS: FLUTICASONE PROP 0.05% 16 GM NASAL SPRAY NS SCH (09:12)
[2017-12-25] MEDS ORDERED: PT OWN MED DRAWER 7, Y5N ONE ×2 (09:12→20:50)
[2017-12-25] MEDS: valACYclovir HCL 500 MG TABLET (FP) PO SCH (09:14)
[2017-12-25] MEDS: AMMONIUM LACTATE 12% LOTION 225 GM BOTTLE TP SCH (09:16)
--- NOTE | 2017-12-25 10:53 | PN ---
Progress Note (short form) - Note Progress Note: s: no cp sob palps dizzy o: Vital Signs Period Temp Pulse Resp BP Sys/Ferrer Pulse Ox Last 24 Hr 97.1 F-101.8 F 75-82 20-20 96-163/48-63 97 Constitutional: Yes: No Distress, Calm Eyes: Yes: Conjunctiva Clear Respiratory: Yes: Regular, CTA Bilaterally Gastrointestinal: Yes: Normal Bowel Sounds, Soft Cardiovascular: Yes: Regular Rate and Rhythm Heart Sounds: Yes: S1, S2 Murmur: Yes: Systolic Murmur Extremities: Yes: Other (L ankle/foot erythema, tender to palpation) Edema: Yes Edema: LLE: 1+ no jaundice diaphoresis Neurological: Yes: Alert, Oriented Current Medications Generic Name Dose Route Start Last Admin Trade Name Freq PRN Reason Stop Dose Admin Acetaminophen 650 mg 12/24/17 10:20 12/25/17 06:50 Tylenol - PO 650 mg Q4H PRN Administration PAIN OR FEVER Atorvastatin Calcium 40 mg 12/23/17 22:00 12/24/17 21:20 Lipitor - PO 40 mg HS [facility] Administration Docusate Sodium 100 mg 12/23/17 22:00 12/24/17 21:19 Colace - PO 100 mg HS [facility] Administration Fluticasone Propionate 2 spray 12/23/17 10:00 12/25/17 09:12 Flonase - NS 2 spray DAILY [facility] Administration Furosemide 40 mg 12/23/17 10:00 12/25/17 09:10 Lasix - PO 40 mg DAILY [facility] Administration Gabapentin 600 mg 12/23/17 10:00 12/25/17 09:08 Neurontin - PO 600 mg DAILY [facility] Administration Heparin Sodium (Porcine) 5,000 unit 12/22/17 23:30 12/25/17 09:06 Heparin - SQ 5,000 unit BID [facility] Administration Piperacillin Sod/Tazobactam 50 mls @ 100 mls/hr 12/23/17 18:00 12/25/17 09:15 Sod 2.25 gm/ Dextrose IVPB 100 mls/hr Q8H-IV [facility] Administration Protocol Vancomycin HCl 1 gm in 200 mls @ 133.333 mls/hr 12/23/17 18:00 12/24/17 17:06 Vancomycin 1 Gm Premix - IVPB 133.333 mls/hr Q24H [facility] Administration Protocol Lactic Acid 1 applic 12/23/17 10:00 12/25/17 09:16 Lac-Hydrin 12 TP 1 applic DAILY [facility] Administration Levothyroxine Sodium 75 mcg 12/23/17 07:00 12/25/17 06:49 Synthroid - PO 75 mcg DAILY@0700 [facility] Administration Pantoprazole Sodium 40 mg 12/23/17 10:00 12/25/17 09:11 Protonix - PO 40 mg DAILY [facility] Administration Potassium Chloride 40 meq 12/25/17 10:00 12/25/17 09:06 K-Dur - PO 40 meq DAILY [facility] Administration Pramipexole Dihydrochloride 0.25 mg 12/23/17 22:00 12/24/17 22:58 Mirapex - PO 0.25 mg HS [facility] Administration Senna 1 tab 12/23/17 22:00 12/24/17 21:20 Senna - PO 1 tab HS [facility] Administration Tramadol HCl 50 mg 12/24/17 10:19 12/25/17 08:53 Ultram - PO 50 mg Q8H PRN Administration PAIN LEVEL 6-10 Valacyclovir HCl 500 mg 12/23/17 10:00 12/25/17 09:14 Valtrex - PO 500 mg DAILY [facility] Administration Warfarin Sodium 7.5 mg 12/23/17 18:00 12/23/17 17:04 Coumadin - PO 7.5 mg DAILY@1800 [facility] Administration CBC, BMP 12/25/17 05:30 12/25/17 05:30 Assessment/Plan MPI 2013 (damir): no STs; no ischemia; nl EF Echo 09/08: nl LV size and function, EF 55-60%, mild AR, RA mildly enlarged, mild -mod TR, aorta atherosclerotic plaque present Echo 2014: nl LVSF; nl RV; mild-mod AI; mod TR; RVSP 40-50 Carotids 12/09: minimal athero, normal velocity. EKG sinus with PACs, LVH srinivas lower ext venous ultrasound no DVT tele: sinus with PACs 87F h/o DM, cellulitis, mult myeloma, afib and DVT on coumadin, hypothyroidism p /w fever Positive troponin - 0.06->0.11->0.12, mild elevation with flat trend, asymptomatic. not c/w acs. - EKG not concerning for ischemia fever, cellulitis - on abx - ID following Afib - sinus on tele - continue coumadin - metoprolol held, has had low BPs here - rate stable DVT - on warfarin HLD - cont statin DM - manage per primary team dc tele
--- NOTE | 2017-12-25 11:54 | PN ---
Progress Note, Physician Chief Complaint: BLLE Cellulitis History of Present Illness: NAD in bed Seen by Cardiology - Current Medication List Current Medications: Active Medications Acetaminophen (Tylenol -) 650 mg PO Q4H PRN PRN Reason: PAIN OR FEVER Last Admin: 12/25/17 06:50 Dose: 650 mg Atorvastatin Calcium (Lipitor -) 40 mg PO HS [facility] Last Admin: 12/24/17 21:20 Dose: 40 mg Docusate Sodium (Colace -) 100 mg PO HS [facility] Last Admin: 12/24/17 21:19 Dose: 100 mg Fluticasone Propionate (Flonase -) 2 spray NS DAILY [facility] Last Admin: 12/25/17 09:12 Dose: 2 spray Furosemide (Lasix -) 40 mg PO DAILY [facility] Last Admin: 12/25/17 09:10 Dose: 40 mg Gabapentin (Neurontin -) 600 mg PO DAILY [facility] Last Admin: 12/25/17 09:08 Dose: 600 mg Heparin Sodium (Porcine) (Heparin -) 5,000 unit SQ BID [facility] Last Admin: 12/25/17 09:06 Dose: 5,000 unit Piperacillin Sod/Tazobactam (Sod 2.25 gm/ Dextrose) 50 mls @ 100 mls/hr IVPB Q8H-IV [facility]; Protocol Last Admin: 12/25/17 09:15 Dose: 100 mls/hr Vancomycin HCl (Vancomycin 1 Gm Premix -) 1 gm in 200 mls @ 133.333 mls/hr IVPB Q24H [facility]; Protocol Last Admin: 12/24/17 17:06 Dose: 133.333 mls/hr Lactic Acid (Lac-Hydrin 12) 1 applic TP DAILY [facility] Last Admin: 12/25/17 09:16 Dose: 1 applic Levothyroxine Sodium (Synthroid -) 75 mcg PO DAILY@0700 [facility] Last Admin: 12/25/17 06:49 Dose: 75 mcg Pantoprazole Sodium (Protonix -) 40 mg PO DAILY [facility] Last Admin: 12/25/17 09:11 Dose: 40 mg Potassium Chloride (K-Dur -) 40 meq PO DAILY [facility] Last Admin: 12/25/17 09:06 Dose: 40 meq Pramipexole Dihydrochloride (Mirapex -) 0.25 mg PO [facility] Last Admin: 12/24/17 22:58 Dose: 0.25 mg Senna (Senna -) 1 tab PO HS [facility] Last Admin: 12/24/17 21:20 Dose: 1 tab Tramadol HCl (Ultram -) 50 mg PO Q8H PRN PRN Reason: PAIN LEVEL 6-10 Last Admin: 12/25/17 08:53 Dose: 50 mg Valacyclovir HCl (Valtrex -) 500 mg PO DAILY [facility] Last Admin: 12/25/17 09:14 Dose: 500 mg Warfarin Sodium (Coumadin -) 7.5 mg PO DAILY@1800 [facility] Last Admin: 12/23/17 17:04 Dose: 7.5 mg - Objective Vital Signs: Vital Signs Temperature 99.8 F H 12/25/17 10:00 Pulse Rate 76 12/25/17 10:00 Respiratory Rate 20 12/25/17 10:00 Blood Pressure 111/48 12/25/17 10:00 O2 Sat by Pulse Oximetry (%) 97 12/24/17 21:00 Constitutional: Yes: Well Nourished, No Distress, Calm Cardiovascular: Yes: Regular Rate and Rhythm Respiratory: Yes: Regular Gastrointestinal: Yes: Normal Bowel Sounds, Soft Musculoskeletal: Yes: Muscle Weakness Edema: Yes (BLLE cellulitis) Peripheral Pulses WNL: Yes Neurological: Yes: Alert, Pre-Existing Deficit Psychiatric: Yes: Alert Labs: CBC, BMP 12/25/17 05:30 12/25/17 05:30 INR, PTT INR 7.36 (0.83-1.09) H* 12/25/17 05:30 Problem List - Problems (1) Cellulitis Assessment/Plan: -ID consult -IV abx -acetaminophen 650 mg po Q6H PRN for fever >100.0 F or Pain of 1-3 Code(s): L03.90 - CELLULITIS, UNSPECIFIED Qualifiers: Site of cellulitis: extremity Site of cellulitis of extremity: lower extremity Laterality: right Qualified Code(s): L03.115 - Cellulitis of right lower limb (2) Afib Assessment/Plan: -chronic -controlled -Warfarin on hold -INR elevated -check daily INR's -d/c tele Code(s): I48.91 - UNSPECIFIED ATRIAL FIBRILLATION (3) Multiple myeloma Assessment/Plan: -Seen by Oncology Code(s): C90.00 - MULTIPLE MYELOMA NOT HAVING ACHIEVED REMISSION (4) Elevated troponin Assessment/Plan: -2/2 to demand ischemia due to acute infection Code(s): R74.8 - ABNORMAL LEVELS OF OTHER SERUM ENZYMES (5) Anemia Assessment/Plan: -check iron stores, thyroid, B12 and stool ob -monitor trend Code(s): D64.9 - ANEMIA, UNSPECIFIED Qualifiers: Anemia type: B12 deficiency 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
[2017-12-25] MEDS ORDERED: PHYTONADIONE 5 MG TABLET PO ONE (13:00)
--- NOTE | 2017-12-25 17:40 | PN ---
Progress Note (short form) - Note Progress Note: Patient seen and examined Continues to have high grade fevers Last Vital Signs Temp Pulse Resp BP Pulse Ox 103 F H 84 20 146/60 97 12/25/17 14:00 12/25/17 14:00 12/25/17 10:00 12/25/17 14:00 12/25/17 09:00 c/o RLE pain/swelling RLE duplex was negative AFVSS Cor: RSR, No murmurs, No gallops Lungs: Clear to P&A Abd: Soft, Normal bowel sounds, No organomegaly Ext: RLE edema Abnormal Lab Results 12/24/17 12/25/17 12/25/17 10:40 05:30 05:30 RBC 3.24 L Hgb 9.4 L Hct 28.0 L RDW 20.0 H Plt Count 121 L Lymphocytes % 3.8 L D Monocytes % 14.1 H PT with INR 83.20 H INR 7.36 H* Chloride Anion Gap Creatinine Random Glucose Calcium Iron 8 L TIBC 218 L Iron Saturation 4 L AST Total Protein Albumin 12/25/17 05:30 RBC Hgb Hct RDW Plt Count Lymphocytes % Monocytes % PT with INR INR Chloride 110 H Anion Gap 5 L Creatinine 1.3 H Random Glucose 58 L Calcium 7.2 L Iron TIBC Iron Saturation AST 51 H Total Protein 4.9 L Albumin 1.9 L Active Medications Generic Name Dose Route Start Last Admin Trade Name Freq PRN Reason Stop Dose Admin Acetaminophen 650 mg 12/24/17 10:20 12/25/17 15:12 Tylenol - PO 650 mg Q4H PRN Administration PAIN OR FEVER Atorvastatin Calcium 40 mg 12/23/17 22:00 12/24/17 21:20 Lipitor - PO 40 mg HS [facility] Administration Docusate Sodium 100 mg 12/23/17 22:00 12/24/17 21:19 Colace - PO 100 mg HS [facility] Administration Fluticasone Propionate 2 spray 12/23/17 10:00 12/25/17 09:12 Flonase - NS 2 spray DAILY [facility] Administration Furosemide 40 mg 12/23/17 10:00 12/25/17 09:10 Lasix - PO 40 mg DAILY [facility] Administration Gabapentin 600 mg 12/23/17 10:00 12/25/17 09:08 Neurontin - PO 600 mg DAILY [facility] Administration Heparin Sodium (Porcine) 5,000 unit 12/22/17 23:30 12/25/17 09:06 Heparin - SQ 5,000 unit BID [facility] Administration Piperacillin Sod/Tazobactam 50 mls @ 100 mls/hr 12/23/17 18:00 12/25/17 09:15 Sod 2.25 gm/ Dextrose IVPB 100 mls/hr Q8H-IV [facility] Administration Protocol Vancomycin HCl 1 gm in 200 mls @ 133.333 mls/hr 12/23/17 18:00 12/24/17 17:06 Vancomycin 1 Gm Premix - IVPB 133.333 mls/hr Q24H [facility] Administration Protocol Lactic Acid 1 applic 12/23/17 10:00 12/25/17 09:16 Lac-Hydrin 12 TP 1 applic DAILY [facility] Administration Levothyroxine Sodium 75 mcg 12/23/17 07:00 12/25/17 06:49 Synthroid - PO 75 mcg DAILY@0700 [facility] Administration Pantoprazole Sodium 40 mg 12/23/17 10:00 12/25/17 09:11 Protonix - PO 40 mg DAILY [facility] Administration Potassium Chloride 40 meq 12/25/17 10:00 12/25/17 09:06 K-Dur - PO 40 meq DAILY [facility] Administration Pramipexole Dihydrochloride 0.25 mg 12/23/17 22:00 12/24/17 22:58 Mirapex - PO 0.25 mg HS [facility] Administration Senna 1 tab 12/23/17 22:00 12/24/17 21:20 Senna - PO 1 tab HS [facility] Administration Tramadol HCl 50 mg 12/24/17 10:19 12/25/17 08:53 Ultram - PO 50 mg Q8H PRN Administration PAIN LEVEL 6-10 Valacyclovir HCl 500 mg 12/23/17 10:00 12/25/17 09:14 Valtrex - PO 500 mg DAILY [facility] Administration Warfarin Sodium 7.5 mg 12/23/17 18:00 12/23/17 17:04 Coumadin - PO 7.5 mg DAILY@1800 [facility] Administration A/P 87 yo female pmh of DM type 2, cellulitis , multiple myeloma (on chemotherapy) DVT (on Coumadin) hypothyroid (thyroid removed) presents to the ED from [facility] for fevers., rt. nkle blistering lesion/cellulitis On zosyn/vnco holding revlimid/dexmethasone at this time ID follow up high fevers--? viral ? cytokine check CT c/a/p noncontrast
[2017-12-25] MEDS: VANCOMYCIN 1 GM PREMIX - 1 GM/200 ML BAG IVPB SCH (18:08)
[2017-12-25] MEDS: SENNOSIDES 8.6MG TABLET (FP) PO SCH (21:33)
[2017-12-25] MEDS: ATORVASTATIN CA 40 MG TABLET (FP) PO SCH (21:33)
[2017-12-25] MEDS: PRAMIPEXOLE DIHYDROCHLORIDE 0.25 MG TABLET PO SCH (21:33)
[2017-12-25] MEDS: DOCUSATE SODIUM 100 MG CAPSULE (FP) PO SCH (21:33)
[2017-12-26] MEDS: traMADol HCL 50 MG TABLET PO PRN (01:33)
[2017-12-26] MEDS ORDERED: DEXTROSE 5%-WATER - 50 ML IVPB ONE ×3 (01:35→18:52)
[2017-12-26] MEDS ORDERED: PIPERACILLIN/TAZOBACTAM 2.25 GM VIAL IVPB ONE ×2 (01:35→09:38)
[2017-12-26] MEDS: PIPERACILLIN/TAZOB 2.25 GM 2.25 GM in DEXTROSE 5%-WATER - 50 ML IVPB SCH ×2 (01:36→09:51)
[2017-12-26] MEDS: ACETAMINOPHEN 325 MG TABLET (FP) PO PRN ×2 (03:06→22:00)
[2017-12-26] MEDS: LEVOTHYROXINE NA 75 MCG TABLET (FP) PO SCH (06:04)
[2017-12-26 07:10] LABS: BASO % 0.7 % (0-2.0); EOS % 1.6 % (0-4.5); HEMATOCRIT 25.7 % (32.4-45.2); HEMOGLOBIN 8.5 GM/dL (10.7-15.3); LYMPH % 4.6 % (8-40); MCH 28.4 pg (25.7-33.7); MEAN PLT VOLUME 8.3 fl (7.5-11.1); MONO % 21.9 % (3.8-10.2); NEUT % 71.2 % (42.8-82.8); PLATELET COUNT 121 K/MM3 (134-434); RBC 2.99 M/mm3 (3.60-5.2); WHITE BLOOD COUNT 5.5 K/mm3 (4.0-10.0)
[2017-12-26 07:39] LABS: INR 3.9 (0.83-1.09); PROTHROMBIN TIME (PATIENT) 44.1 SEC (9.7-13.0)
[2017-12-26 08:02] LABS: CHLORIDE 109 mmol/L (98-107); POTASSIUM 3.6 mmol/L (3.5-5.1); SODIUM 143 mmol/L (136-145)
[2017-12-26 08:09] LABS: ALBUMIN 1.8 g/dl (3.4-5.0); ALK PHOS 87 U/L (45-117); ANION GAP 10 MMOL/L (8-16); BILIRUBIN,TOTAL 0.9 mg/dL (0.2-1.0); BLOOD UREA NITROGEN 12 mg/dL (7-18); CALCIUM 7.3 mg/dL (8.5-10.1); CO2 24 mmol/L (21-32); CREATININE 1.1 mg/dL (0.55-1.02); GLUCOSE,RANDOM 73 mg/dL (74-106); LDH 229 U/L (84-246); SGOT/AST 46 U/L (15-37); SGPT/ALT 58 U/L (12-78); TOT PROT 4.5 g/dl (6.4-8.2)
[2017-12-26] MEDS ORDERED: PT OWN MED DRAWER 7, Y5N ONE ×3 (09:38→21:10)
[2017-12-26] MEDS: GABAPENTIN 300 MG CAPSULE (FP) PO SCH (09:49)
--- NOTE | 2017-12-26 09:49 | PN ---
Progress Note (short form) - Note Progress Note: remains febrile now day #3 vancomycin, day #4 zosyn continued leg pain no other complaints Vital Signs Period Temp Pulse Resp BP Sys/Ferrer Pulse Ox Last 24 Hr 99.0 F-103 F 68-84 19-20 111-146/46-60 97 cor-rrr lungs clear abd soft,nt ext RLE, with large blister that has popped with serous drainage upper aspect of blister with erythema, ?pus CBC, BMP 12/26/17 05:30 12/26/17 05:30 Microbiology 12/22/17 13:48 Blood - Peripheral Venous Blood Culture - Preliminary NO GROWTH OBTAINED AFTER 72 HOURS, INCUBATION TO CONTINUE FOR 2 DAYS. 12/22/17 13:48 Blood - Peripheral Venous Blood Culture - Preliminary NO GROWTH OBTAINED AFTER 72 HOURS, INCUBATION TO CONTINUE FOR 2 DAYS. 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
[2017-12-26] MEDS: PANTOPRAZOLE 40 MG TABLET (FP) PO SCH (09:50)
[2017-12-26] MEDS: HEPARIN NA (PORCINE) 5,000 UNITS/ML 1ML VIAL SQ SCH ×2 (09:50→21:59)
[2017-12-26] MEDS: FUROSEMIDE 40 MG TABLET (FP) PO SCH (09:50)
[2017-12-26] MEDS: POTASSIUM CHLORIDE TABS 10 MEQ TABLET.ER (FP) PO SCH (09:50)
[2017-12-26] MEDS: valACYclovir HCL 500 MG TABLET (FP) PO SCH (09:51)
[2017-12-26 10:17] LABS: ANISOCYTOSIS 1+; MACROCYTOSIS 0; PLATELET ESTIMATE DECREASED
[2017-12-26] MEDS: FLUTICASONE PROP 0.05% 16 GM NASAL SPRAY NS SCH (10:39)
[2017-12-26] MEDS: AMMONIUM LACTATE 12% LOTION 225 GM BOTTLE TP SCH (10:39)
--- NOTE | 2017-12-26 11:20 | PN ---
Progress Note (short form) - Note Progress Note: s: no cp sob palps dizzy o: Vital Signs Period Temp Pulse Resp BP Sys/Ferrer Pulse Ox Last 24 Hr 99.0 F-103 F 68-84 19-20 112-146/46-60 97 Constitutional: Yes: No Distress, Calm Eyes: Yes: Conjunctiva Clear Respiratory: Yes: Regular, CTA Bilaterally Gastrointestinal: Yes: Normal Bowel Sounds, Soft Cardiovascular: Yes: Regular Rate and Rhythm Heart Sounds: Yes: S1, S2 Murmur: Yes: Systolic Murmur Extremities: Yes: Other (L ankle/foot erythema, tender to palpation) Edema: Yes no jaundice diaphoresis Neurological: Yes: Alert, Oriented Current Medications Generic Name Dose Route Start Last Admin Trade Name Freq PRN Reason Stop Dose Admin Acetaminophen 650 mg 12/24/17 10:20 12/26/17 03:06 Tylenol - PO 650 mg Q4H PRN Administration PAIN OR FEVER Atorvastatin Calcium 40 mg 12/23/17 22:00 12/25/17 21:33 Lipitor - PO 40 mg HS [facility] Administration Docusate Sodium 100 mg 12/23/17 22:00 12/25/17 21:33 Colace - PO 100 mg HS [facility] Administration Fluticasone Propionate 2 spray 12/23/17 10:00 12/26/17 10:39 Flonase - NS 2 spray DAILY [facility] Administration Furosemide 40 mg 12/23/17 10:00 12/26/17 09:50 Lasix - PO 40 mg DAILY [facility] Administration Gabapentin 600 mg 12/23/17 10:00 12/26/17 09:49 Neurontin - PO 600 mg DAILY [facility] Administration Heparin Sodium (Porcine) 5,000 unit 12/22/17 23:30 12/26/17 09:50 Heparin - SQ 5,000 unit BID [facility] Administration Vancomycin HCl 1 gm in 200 mls @ 133.333 mls/hr 12/23/17 18:00 12/25/17 18:08 Vancomycin 1 Gm Premix - IVPB 133.333 mls/hr Q24H [facility] Administration Protocol Piperacillin Sod/Tazobactam 50 mls @ 100 mls/hr 12/26/17 18:00 Sod 3.375 gm/ Dextrose IVPB Q8H-IV [facility] Protocol Lactic Acid 1 applic 12/23/17 10:00 12/26/17 10:39 Lac-Hydrin 12 TP 1 applic DAILY [facility] Administration Levothyroxine Sodium 75 mcg 12/23/17 07:00 12/26/17 06:04 Synthroid - PO 75 mcg DAILY@0700 [facility] Administration Pantoprazole Sodium 40 mg 12/23/17 10:00 12/26/17 09:50 Protonix - PO 40 mg DAILY [facility] Administration Potassium Chloride 40 meq 12/25/17 10:00 12/26/17 09:50 K-Dur - PO 40 meq DAILY [facility] Administration Pramipexole Dihydrochloride 0.25 mg 12/23/17 22:00 12/25/17 21:33 Mirapex - PO 0.25 mg HS [facility] Administration Senna 1 tab 12/23/17 22:00 12/25/17 21:33 Senna - PO 1 tab HS [facility] Administration Tramadol HCl 50 mg 12/24/17 10:19 12/26/17 01:33 Ultram - PO 50 mg Q8H PRN Administration PAIN LEVEL 6-10 Valacyclovir HCl 500 mg 12/23/17 10:00 12/26/17 09:51 Valtrex - PO 500 mg DAILY [facility] Administration Warfarin Sodium 7.5 mg 12/23/17 18:00 12/23/17 17:04 Coumadin - PO 7.5 mg DAILY@1800 [facility] Administration CBC, BMP 12/26/17 05:30 12/26/17 05:30 Assessment/Plan MPI 2013 (damir): no STs; no ischemia; nl EF Echo 09/08: nl LV size and function, EF 55-60%, mild AR, RA mildly enlarged, mild -mod TR, aorta atherosclerotic plaque present Echo 2014: nl LVSF; nl RV; mild-mod AI; mod TR; RVSP 40-50 Carotids 12/09: minimal athero, normal velocity. EKG sinus with PACs, LVH srinivas lower ext venous ultrasound no DVT tele: sinus with PACs 87F h/o DM, cellulitis, mult myeloma, afib and DVT on coumadin, hypothyroidism p /w fever Positive troponin - 0.06->0.11->0.12, mild elevation with flat trend, asymptomatic. not c/w acs. - EKG not concerning for ischemia fever, cellulitis - on abx - ID following Afib - in sr - continue coumadin per inr - metoprolol held, has had low BPs here - rate stable DVT - on warfarin HLD - cont statin DM - manage per primary team
--- NOTE | 2017-12-26 17:54 | PN ---
Progress Note, Physician - Current Medication List Current Medications: Active Medications Acetaminophen (Tylenol -) 650 mg PO Q4H PRN PRN Reason: PAIN OR FEVER Last Admin: 12/26/17 03:06 Dose: 650 mg Atorvastatin Calcium (Lipitor -) 40 mg PO HS [facility] Last Admin: 12/25/17 21:33 Dose: 40 mg Docusate Sodium (Colace -) 100 mg PO HS [facility] Last Admin: 12/25/17 21:33 Dose: 100 mg Fluticasone Propionate (Flonase -) 2 spray NS DAILY [facility] Last Admin: 12/26/17 10:39 Dose: 2 spray Furosemide (Lasix -) 40 mg PO DAILY [facility] Last Admin: 12/26/17 09:50 Dose: 40 mg Gabapentin (Neurontin -) 600 mg PO DAILY [facility] Last Admin: 12/26/17 09:49 Dose: 600 mg Heparin Sodium (Porcine) (Heparin -) 5,000 unit SQ BID [facility] Last Admin: 12/26/17 09:50 Dose: 5,000 unit Vancomycin HCl (Vancomycin 1 Gm Premix -) 1 gm in 200 mls @ 133.333 mls/hr IVPB Q24H [facility]; Protocol Last Admin: 12/25/17 18:08 Dose: 133.333 mls/hr Piperacillin Sod/Tazobactam (Sod 3.375 gm/ Dextrose) 50 mls @ 100 mls/hr IVPB Q8H-IV [facility]; Protocol Lactic Acid (Lac-Hydrin 12) 1 applic TP DAILY [facility] Last Admin: 12/26/17 10:39 Dose: 1 applic Levothyroxine Sodium (Synthroid -) 75 mcg PO DAILY@0700 [facility] Last Admin: 12/26/17 06:04 Dose: 75 mcg Pantoprazole Sodium (Protonix -) 40 mg PO DAILY [facility] Last Admin: 12/26/17 09:50 Dose: 40 mg Potassium Chloride (K-Dur -) 40 meq PO DAILY [facility] Last Admin: 12/26/17 09:50 Dose: 40 meq Pramipexole Dihydrochloride (Mirapex -) 0.25 mg PO HS [facility] Last Admin: 12/25/17 21:33 Dose: 0.25 mg Senna (Senna -) 1 tab PO HS [facility] Last Admin: 12/25/17 21:33 Dose: 1 tab Tramadol HCl (Ultram -) 50 mg PO Q8H PRN PRN Reason: PAIN LEVEL 6-10 Last Admin: 12/26/17 01:33 Dose: 50 mg Valacyclovir HCl (Valtrex -) 500 mg PO DAILY [facility] Last Admin: 12/26/17 09:51 Dose: 500 mg Warfarin Sodium (Coumadin -) 7.5 mg PO DAILY@1800 [facility] Last Admin: 12/23/17 17:04 Dose: 7.5 mg - Objective Vital Signs: Vital Signs Temperature 99.1 F 12/26/17 13:32 Pulse Rate 64 12/26/17 13:32 Respiratory Rate 19 12/26/17 13:32 Blood Pressure 122/58 12/26/17 13:32 O2 Sat by Pulse Oximetry (%) 98 12/26/17 09:00 Labs: CBC, BMP 12/26/17 05:30 12/26/17 05:30 INR, PTT INR 3.90 (0.83-1.09) H 12/26/17 05:30 Problem List - Problems (1) Bullous disorder Assessment/Plan: -DERM AND SURGICAL CONSULT Code(s): L13.9 - BULLOUS DISORDER, UNSPECIFIED (2) Cellulitis Assessment/Plan: -IV ABX -FOLLOW LABS -ID consult -acetaminophen 650 mg po Q6H PRN for fever >100.0 F or Pain of 1-3 Code(s): L03.90 - CELLULITIS, UNSPECIFIED Qualifiers: Site of cellulitis: extremity Site of cellulitis of extremity: lower extremity Laterality: right Qualified Code(s): L03.115 - Cellulitis of right lower limb (3) Atypical chest pain Code(s): R07.89 - OTHER CHEST PAIN (4) Fever Assessment/Plan: -CULTURES Microbiology 12/26/17 10:00 Ulcer Gram Stain - Final 12/22/17 13:48 Blood - Peripheral Venous Blood Culture - Preliminary NO GROWTH OBTAINED AFTER 96 HOURS, INCUBATION TO CONTINUE FOR 1 DAYS. 12/22/17 13:48 Blood - Peripheral Venous Blood Culture - Preliminary NO GROWTH OBTAINED AFTER 96 HOURS, INCUBATION TO CONTINUE FOR 1 DAYS. 12/22/17 15:00 Urine - Urine Clean Catch Urine Culture - Final NO GROWTH OBTAINED -IV ABX -ID CONSULT Code(s): R50.9 - FEVER, UNSPECIFIED (5) Leg pain Assessment/Plan: -DUPLEX NEG -SURGICAL CONSULT -ABX Code(s): M79.606 - PAIN IN LEG, UNSPECIFIED Qualifiers: Laterality: left Qualified Code(s): M79.605 - Pain in left leg (6) Multiple myeloma Assessment/Plan: -Seen by Oncology Code(s): C90.00 - MULTIPLE MYELOMA NOT HAVING ACHIEVED REMISSION (7) Elevated INR Assessment/Plan: -2/2 to abx -warfarin on hold -Vit K 5 mg po once given -daily INR's -observe for any overt bleeding Code(s): R79.1 - ABNORMAL COAGULATION PROFILE (8) Afib Assessment/Plan: -chronic -controlled -Warfarin on hold -INR elevated -check daily INR's Code(s): I48.91 - UNSPECIFIED ATRIAL FIBRILLATION
[2017-12-26] MEDS: VANCOMYCIN 1 GM PREMIX - 1 GM/200 ML BAG IVPB SCH (18:42)
[2017-12-26] MEDS ORDERED: PIPERACILLIN/TAZOBACTAM 3.375 GM VIAL IVPB ONE (18:51)
[2017-12-26] MEDS: PIPERACILLIN/TAZOB 3.375 GM 3.375 GM in DEXTROSE 5%-WATER - 50 ML IVPB SCH (19:03)
[2017-12-26] MEDS: DOCUSATE SODIUM 100 MG CAPSULE (FP) PO SCH (21:59)
[2017-12-26] MEDS: ATORVASTATIN CA 40 MG TABLET (FP) PO SCH (21:59)
[2017-12-26] MEDS: SENNOSIDES 8.6MG TABLET (FP) PO SCH (21:59)
[2017-12-26] MEDS: PRAMIPEXOLE DIHYDROCHLORIDE 0.25 MG TABLET PO SCH (21:59)
[2017-12-27] MEDS: traMADol HCL 50 MG TABLET PO PRN ×3 (00:04→22:32)
[2017-12-27] MEDS ORDERED: DEXTROSE 5%-WATER - 50 ML IVPB ONE ×3 (01:07→17:32)
[2017-12-27] MEDS ORDERED: PIPERACILLIN/TAZOBACTAM 3.375 GM VIAL IVPB ONE ×3 (01:07→17:32)
[2017-12-27] MEDS: PIPERACILLIN/TAZOB 3.375 GM 3.375 GM in DEXTROSE 5%-WATER - 50 ML IVPB SCH ×3 (01:11→17:35)
[2017-12-27] MEDS: ACETAMINOPHEN 325 MG TABLET (FP) PO PRN ×2 (06:29→19:39)
[2017-12-27] MEDS: LEVOTHYROXINE NA 75 MCG TABLET (FP) PO SCH (06:30)
[2017-12-27 06:50] LABS: BASO % 0.4 % (0-2.0); EOS % 0.7 % (0-4.5); HEMATOCRIT 27.4 % (32.4-45.2); HEMOGLOBIN 8.9 GM/dL (10.7-15.3); LYMPH % 4.7 % (8-40); MCHC 32.3 g/dl (32.0-36.0); MEAN CELL VOLUME 86.6 fl (80-96); MONO % 19.6 % (3.8-10.2); NEUT % 74.6 % (42.8-82.8); PLATELET COUNT 139 K/MM3 (134-434); RBC 3.17 M/mm3 (3.60-5.2); RDW 20.2 % (11.6-15.6); WHITE BLOOD COUNT 5.7 K/mm3 (4.0-10.0)
[2017-12-27 07:06] LABS: INR 1.6 (0.83-1.09); PROTHROMBIN TIME (PATIENT) 18.1 SEC (9.7-13.0)
[2017-12-27 07:15] LABS: ALBUMIN 1.7 g/dl (3.4-5.0); ANION GAP 7 MMOL/L (8-16); BLOOD UREA NITROGEN 11 mg/dL (7-18); CALCIUM 7.6 mg/dL (8.5-10.1); CHLORIDE 109 mmol/L (98-107); CO2 27 mmol/L (21-32); CREATININE 1.1 mg/dL (0.55-1.02); GLUCOSE,RANDOM 69 mg/dL (74-106); POTASSIUM 3.8 mmol/L (3.5-5.1); SGOT/AST 53 U/L (15-37); SGPT/ALT 59 U/L (12-78); SODIUM 143 mmol/L (136-145)
[2017-12-27 07:17] LABS: ALK PHOS 104 U/L (45-117); TOT PROT 4.8 g/dl (6.4-8.2)
--- NOTE | 2017-12-27 09:06 | PN ---
Progress Note, Physician Chief Complaint: BLLE Cellulitis History of Present Illness: NAD in bed Seen by Cardiology CT chest shows pleural effusions CT LE-unremarkable Vascular to see the patient On IV abx Seen by ID febrile this am Wound culture, BC pending - Current Medication List Current Medications: Active Medications Acetaminophen (Tylenol -) 650 mg PO Q4H PRN PRN Reason: PAIN OR FEVER Last Admin: 12/27/17 06:29 Dose: 650 mg Atorvastatin Calcium (Lipitor -) 40 mg PO HS [facility] Last Admin: 12/26/17 21:59 Dose: 40 mg Docusate Sodium (Colace -) 100 mg PO HS [facility] Last Admin: 12/26/17 21:59 Dose: Not Given Ferrous Sulfate (Feosol -) 325 mg PO DAILY [facility] Fluticasone Propionate (Flonase -) 2 spray NS DAILY [facility] Last Admin: 12/26/17 10:39 Dose: 2 spray Furosemide (Lasix -) 40 mg PO DAILY [facility] Last Admin: 12/26/17 09:50 Dose: 40 mg Gabapentin (Neurontin -) 600 mg PO DAILY [facility] Last Admin: 12/26/17 09:49 Dose: 600 mg Vancomycin HCl (Vancomycin 1 Gm Premix -) 1 gm in 200 mls @ 133.333 mls/hr IVPB Q24H [facility]; Protocol Last Admin: 12/26/17 18:42 Dose: 133.333 mls/hr Piperacillin Sod/Tazobactam (Sod 3.375 gm/ Dextrose) 50 mls @ 100 mls/hr IVPB Q8H-IV [facility]; Protocol Last Admin: 12/27/17 01:11 Dose: 100 mls/hr Iron Sucrose 300 mg/ Sodium (Chloride) 250 mls @ 250 mls/hr IVPB DAILY [facility] Stop: 12/27/17 09:55 Lactic Acid (Lac-Hydrin 12) 1 applic TP DAILY [facility] Last Admin: 12/26/17 10:39 Dose: 1 applic Levothyroxine Sodium (Synthroid -) 75 mcg PO DAILY@0700 [facility] Last Admin: 12/27/17 06:30 Dose: 75 mcg Pantoprazole Sodium (Protonix -) 40 mg PO DAILY [facility] Last Admin: 12/26/17 09:50 Dose: 40 mg Potassium Chloride (K-Dur -) 40 meq PO DAILY [facility] Last Admin: 12/26/17 09:50 Dose: 40 meq Pramipexole Dihydrochloride (Mirapex -) 0.25 mg PO [facility] Last Admin: 12/26/17 21:59 Dose: 0.25 mg Senna (Senna -) 1 tab PO [facility] Last Admin: 12/26/17 21:59 Dose: Not Given Tramadol HCl (Ultram -) 50 mg PO Q8H PRN PRN Reason: PAIN LEVEL 6-10 Last Admin: 12/27/17 00:04 Dose: 50 mg Valacyclovir HCl (Valtrex -) 500 mg PO DAILY [facility] Last Admin: 12/26/17 09:51 Dose: 500 mg Warfarin Sodium (Coumadin -) 3 mg PO ONCE@1800 ONE Stop: 12/27/17 18:01 - Objective Vital Signs: Vital Signs Temperature 98.3 F 12/27/17 08:54 Pulse Rate 70 12/27/17 08:54 Respiratory Rate 18 12/27/17 08:54 Blood Pressure 123/53 12/27/17 08:54 O2 Sat by Pulse Oximetry (%) 99 12/26/17 21:00 Constitutional: Yes: Well Nourished, No Distress, Calm Cardiovascular: Yes: Regular Rate and Rhythm Respiratory: Yes: Regular Gastrointestinal: Yes: Normal Bowel Sounds, Soft Musculoskeletal: Yes: Muscle Weakness Edema: Yes (BLLE cellulitis) Peripheral Pulses WNL: Yes Neurological: Yes: Alert, Oriented Psychiatric: Yes: Alert, Oriented Labs: CBC, BMP 12/27/17 05:30 12/27/17 05:30 INR, PTT INR 1.60 (0.83-1.09) H 12/27/17 05:30 Problem List - Problems (1) Cellulitis Assessment/Plan: -ID consult -IV abx -acetaminophen 650 mg po Q6H PRN for fever >100.0 F or Pain of 1-3 Code(s): L03.90 - CELLULITIS, UNSPECIFIED Qualifiers: Site of cellulitis: extremity Site of cellulitis of extremity: lower extremity Laterality: right Qualified Code(s): L03.115 - Cellulitis of right lower limb (2) Afib Assessment/Plan: -chronic -controlled -INR subtherapeutic -Restart Warfarin at 3 mg po daily, titrate cautiously -check daily INR's -d/c tele Code(s): I48.91 - UNSPECIFIED ATRIAL FIBRILLATION (3) Multiple myeloma Assessment/Plan: -Seen by Oncology Code(s): C90.00 - MULTIPLE MYELOMA NOT HAVING ACHIEVED REMISSION (4) Elevated troponin Assessment/Plan: -2/2 to demand ischemia due to acute infection Code(s): R74.8 - ABNORMAL LEVELS OF OTHER SERUM ENZYMES (5) Anemia Assessment/Plan: -Low on iron stores -Venofer -thyroid and B12 normal -stool ob pending -monitor trend Code(s): D64.9 - ANEMIA, UNSPECIFIED Qualifiers: Anemia type: B12 deficiency 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
--- NOTE | 2017-12-27 09:39 | PN ---
Progress Note (short form) - Note Progress Note: s: no cp sob palps dizzy. no complaints o: Vital Signs Period Temp Pulse Resp BP Sys/Ferrer Pulse Ox Last 24 Hr 98.3 F-100.2 F 64-94 18-20 110-132/50-68 99 Constitutional: Yes: No Distress, Calm Eyes: Yes: Conjunctiva Clear Respiratory: Yes: Regular, CTA Bilaterally Gastrointestinal: Yes: Normal Bowel Sounds, Soft Cardiovascular: Yes: Regular Rate and Rhythm Heart Sounds: Yes: S1, S2 Murmur: Yes: Systolic Murmur Extremities: Yes: Other (L ankle/foot erythema, tender to palpation) Edema: Yes no jaundice diaphoresis Neurological: Yes: Alert, Oriented Current Medications Acetaminophen (Tylenol -) 650 mg PO Q4H PRN PRN Reason: PAIN OR FEVER Last Admin: 12/27/17 06:29 Dose: 650 mg Atorvastatin Calcium (Lipitor -) 40 mg PO HS [facility] Last Admin: 12/26/17 21:59 Dose: 40 mg Docusate Sodium (Colace -) 100 mg PO [facility] Last Admin: 12/26/17 21:59 Dose: Not Given Ferrous Sulfate (Feosol -) 325 mg PO DAILY [facility] Last Admin: 12/27/17 10:00 Dose: 325 mg Fluticasone Propionate (Flonase -) 2 spray NS DAILY [facility] Last Admin: 12/27/17 10:01 Dose: 2 spray Furosemide (Lasix Injection -) 40 mg IVPUSH DAILY [facility] Last Admin: 12/27/17 10:00 Dose: 40 mg Gabapentin (Neurontin -) 600 mg PO DAILY [facility] Last Admin: 12/27/17 10:00 Dose: 600 mg Vancomycin HCl (Vancomycin 1 Gm Premix -) 1 gm in 200 mls @ 133.333 mls/hr IVPB Q24H [facility]; Protocol Last Admin: 12/26/17 18:42 Dose: 133.333 mls/hr Piperacillin Sod/Tazobactam (Sod 3.375 gm/ Dextrose) 50 mls @ 100 mls/hr IVPB Q8H-IV [facility]; Protocol Last Admin: 12/27/17 10:00 Dose: 100 mls/hr Iron Sucrose 300 mg/ Sodium (Chloride) 265 mls @ 132.5 mls/hr IVPB DAILY [facility] Stop: 12/29/17 11:59 Last Admin: 12/27/17 11:55 Dose: 132.5 mls/hr Lactic Acid (Lac-Hydrin 12) 1 applic TP DAILY [facility] Last Admin: 12/27/17 10:02 Dose: 1 applic Levothyroxine Sodium (Synthroid -) 75 mcg PO DAILY@0700 [facility] Last Admin: 12/27/17 06:30 Dose: 75 mcg Pantoprazole Sodium (Protonix -) 40 mg PO DAILY [facility] Last Admin: 12/27/17 10:00 Dose: 40 mg Potassium Chloride (K-Dur -) 40 meq PO DAILY [facility] Last Admin: 12/27/17 09:59 Dose: 40 meq Pramipexole Dihydrochloride (Mirapex -) 0.25 mg PO HS [facility] Last Admin: 12/26/17 21:59 Dose: 0.25 mg Senna (Senna -) 1 tab PO HS [facility] Last Admin: 12/26/17 21:59 Dose: Not Given Silver Sulfadiazine (Silvadene -) 1 applic TP DAILY [facility] Tramadol HCl (Ultram -) 50 mg PO Q8H PRN PRN Reason: PAIN LEVEL 6-10 Last Admin: 12/27/17 11:55 Dose: 50 mg Valacyclovir HCl (Valtrex -) 500 mg PO DAILY [facility] Last Admin: 12/27/17 10:00 Dose: 500 mg Warfarin Sodium (Coumadin -) 3 mg PO ONCE@1800 [facility] Stop: 12/27/17 18:01 Assessment/Plan MPI 2013 (damir): no STs; no ischemia; nl EF Echo 09/08: nl LV size and function, EF 55-60%, mild AR, RA mildly enlarged, mild -mod TR, aorta atherosclerotic plaque present Echo 2014: nl LVSF; nl RV; mild-mod AI; mod TR; RVSP 40-50 Carotids 12/09: minimal athero, normal velocity. EKG sinus with PACs, LVH srinivas lower ext venous ultrasound no DVT CT chest: small srinivas pleural effusions 87F h/o DM, cellulitis, mult myeloma, afib and DVT on coumadin, hypothyroidism p /w fever Bilat pleural effusions - no h/o CHF, prior echo nl EF - IV lasix 40 mg daily ordered, received this AM - trend Cr, I/O, daily weight Positive troponin - 0.06->0.11->0.12, mild elevation with flat trend, asymptomatic. not c/w acs. - EKG not concerning for ischemia fever, cellulitis - on abx - ID following Afib - in sr - continue coumadin per inr - metoprolol held, has had low BPs here - rate stable DVT - on warfarin HLD - cont statin DM - manage per primary team
[2017-12-27] MEDS ORDERED: PT OWN MED DRAWER 7, Y5N ONE (09:51)
[2017-12-27] MEDS: POTASSIUM CHLORIDE TABS 10 MEQ TABLET.ER (FP) PO SCH (09:59)
[2017-12-27] MEDS: FERROUS SO4 325 MG TABLET (FP) PO SCH (10:00)
[2017-12-27] MEDS: GABAPENTIN 300 MG CAPSULE (FP) PO SCH (10:00)
[2017-12-27] MEDS: valACYclovir HCL 500 MG TABLET (FP) PO SCH (10:00)
[2017-12-27] MEDS: PANTOPRAZOLE 40 MG TABLET (FP) PO SCH (10:00)
[2017-12-27] MEDS: FUROSEMIDE 40 MG/4 ML INJECTABLE VIAL IVPUSH SCH (10:00)
[2017-12-27] MEDS: FLUTICASONE PROP 0.05% 16 GM NASAL SPRAY NS SCH (10:01)
[2017-12-27] MEDS: AMMONIUM LACTATE 12% LOTION 225 GM BOTTLE TP SCH (10:02)
--- NOTE | 2017-12-27 10:54 | CONSULT ---
- Consultation REQUESTING PROVIDER: Dr. Zaman CONSULT REQUEST: We have been asked to surgically evaluate this patient for ( specify). PCP:Tacos Rowe HISTORY OF PRESENT ILLNESS: 87 yo female with a history A fib on anticoagulation for DVT. She presented to the ER for evaluation of her fevers and weakness. While in the ER she was found to have redness, warmth and a blister over her medial ankle. The patient states that she ambulates with a walker. She doesn't recall hurting herself but did have pain in the right lower leg. PMHx: GERD, HTN, vertigo, Afib, DVT on coumadin, hypothroidism , multiplemyeloma(on cheomtherapy) , diabetic neuropathy, DM PSHx: thyroidectomy, hysterectomy Home Medications Medication Instructions Recorded Albuterol Sulfate [Proair Hfa] 8.5 gm IH Q6H PRN 08/13/17 Ammonium Lactate Cream [Lac-Hydrin] 1 applic TP DAILY 08/13/17 Atorvastatin Ca [Lipitor] 40 mg PO HS 08/13/17 Dexamethasone 4 mg PO WEEKLY 08/13/17 Docusate Sodium [Colace] 100 mg PO HS 08/13/17 Fluticasone Prop 0.05% Nasal 2 spray NS DAILY 08/13/17 [Flonase -] Furosemide [Lasix] 40 mg PO DAILY 08/13/17 Gabapentin 600 mg PO DAILY 08/13/17 Ibuprofen 600 mg PO Q6H PRN 08/13/17 Lenalidomide [Revlimid] 10 mg PO DAILY 08/13/17 Levomefolate/B6/B12/Algal Oil 1 each PO DAILY 08/13/17 [Metanx Capsule] Levothyroxine [Synthroid -] 75 mcg PO DAILY 08/13/17 Metoprolol Succinate 12.5 mg PO DAILY 08/13/17 Pantoprazole Sodium 40 mg PO DAILY 08/13/17 Pramipexole Di-HCl [Mirapex] 0.25 mg PO HS 08/13/17 Sennosides [Senna Lax] 8.6 mg PO HS 08/13/17 Valacyclovir HCl [Valtrex] 500 mg PO DAILY 08/13/17 Warfarin Sodium [Coumadin] 5 mg PO DAILY 08/13/17 Magnesium 250 mg PO DAILY 11/20/17 Meclizine HCl 25 mg PO DAILY 11/20/17 Potassium Chloride 20 meq PO BID 11/20/17 Warfarin Na [Coumadin Protocol] 4 each PO DAILY 11/20/17 Allergies Allergy/AdvReac Type Severity Reaction Status Date / Time No Known Allergies Allergy Verified 12/22/17 13:13 REVIEW OF SYSTEMS: CONSTITUTIONAL: Present: fever, generalized weakness, CARDIOVASCULAR: Absent: chest pain, syncope, palpitations RESPIRATORY: Absent: cough, shortness of breath, no cough GASTROINTESTINAL: Absent: abdominal pain, abdominal distension GENITOURINARY: Absent: dysuria, hematuria NEUROLOGIC: Present: paresthesias, dizziness, unsteady gait ambulates with walker PHYSICAL EXAM: GENERAL: Awake, alert, and fully oriented, in no acute distress. HEAD: Normal with no signs of trauma. EYES: sclera anicteric, conjunctiva clear. NECK: Normal ROM, supple without lymphadenopathy, JVD, or masses. LUNGS: Clear to auscultation bilat anteriorly. No wheezes, and no crackles. No accessory muscle use. HEART: irregulat rhythm, regular rate No murmurs ABDOMEN: Soft, nontender, not distended LOWER EXTREMITIES: RLE 1+ pulse, confirmed with doppler warm, well-perfused. Warm and tender to touch. Mild erythema and swelling to mid calf. Large blister over medial ankle approximately 10x8cm. LLE: no ulcers, +2 DP. NEUROLOGICAL: Normal speech, gait not observed. PSYCH: Cooperative. Good eye contact. Appropriate mood and affect. Vital Signs Temperature 98.3 F 12/27/17 08:54 Pulse Rate 70 12/27/17 08:54 Respiratory Rate 18 12/27/17 08:54 Blood Pressure 123/53 12/27/17 08:54 O2 Sat by Pulse Oximetry (%) 99 12/26/17 21:00 Lab Results WBC 5.7 K/mm3 (4.0-10.0) 12/27/17 05:30 RBC 3.17 M/mm3 (3.60-5.2) L 12/27/17 05:30 Hgb 8.9 GM/dL (10.7-15.3) L 12/27/17 05:30 Hct 27.4 % (32.4-45.2) L 12/27/17 05:30 MCV 86.6 fl (80-96) 12/27/17 05:30 MCHC 32.3 g/dl (32.0-36.0) 12/27/17 05:30 RDW 20.2 % (11.6-15.6) H 12/27/17 05:30 Plt Count 139 K/MM3 (134-434) 12/27/17 05:30 Sodium 143 mmol/L (136-145) 12/27/17 05:30 Potassium 3.8 mmol/L (3.5-5.1) 12/27/17 05:30 Chloride 109 mmol/L (98-107) H 12/27/17 05:30 Carbon Dioxide 27 mmol/L (21-32) 12/27/17 05:30 Anion Gap 7 MMOL/L (8-16) L 12/27/17 05:30 BUN 11 mg/dL (7-18) 12/27/17 05:30 Creatinine 1.1 mg/dL (0.55-1.02) H 12/27/17 05:30 Random Glucose 69 mg/dL (74-106) L 12/27/17 05:30 Calcium 7.6 mg/dL (8.5-10.1) L 12/27/17 05:30 INR 1.60 (0.83-1.09) H 12/27/17 05:30 Microbiology 12/26/17 10:00 Ulcer Gram Stain - Final 12/22/17 15:00 Urine - Urine Clean Catch Urine Culture - Final NO GROWTH OBTAINED 12/26/17 10:20 Blood - Peripheral Venous Blood Culture - Preliminary NO GROWTH OBTAINED AFTER 24 HOURS, INCUBATION TO CONTINUE FOR 4 DAYS. 12/26/17 10:15 Blood - Peripheral Venous Blood Culture - Preliminary NO GROWTH OBTAINED AFTER 24 HOURS, INCUBATION TO CONTINUE FOR 4 DAYS. 12/22/17 13:48 Blood - Peripheral Venous Blood Culture - Preliminary NO GROWTH OBTAINED AFTER 96 HOURS, INCUBATION TO CONTINUE FOR 1 DAYS. 12/22/17 13:48 Blood - Peripheral Venous Blood Culture - Preliminary NO GROWTH OBTAINED AFTER 96 HOURS, INCUBATION TO CONTINUE FOR 1 DAYS. Laboratory Tests 12/24/17 12/25/17 12/27/17 10:40 05:30 05:30 INR 6.25 H* 7.36 H* 1.60 H 12/22/2017: No DVT found bilaterally to lower ext CT scan RLE: soft tissue swelling, No abscess collection. Problem List - Problems (1) Cellulitis of leg, right Assessment/Plan: Patient seen and examined this am with Dr. Zaman. Distal pulses intact. Recommend to continue IV antibiotics as per ID. She is having fevers with normal WBC and cultures negative to date. Local wound care ordered for her Right lower extremity, No abscess seen on CT scan surgery to follow until cellulitis resolving Code(s): L03.115 - CELLULITIS OF RIGHT LOWER LIMB
[2017-12-27] MEDS: IRON SUCROSE INJECTION 300 MG in SODIUM CHLORIDE 250 ML IVPB SCH (11:55)
[2017-12-27] MEDS: VANCOMYCIN 1 GM PREMIX - 1 GM/200 ML BAG IVPB SCH (17:37)
[2017-12-27] MEDS ORDERED: WARFARIN NA 3 MG TABLET PO ONE (18:00)
[2017-12-27] MEDS: ATORVASTATIN CA 40 MG TABLET (FP) PO SCH (22:31)
[2017-12-27] MEDS: DOCUSATE SODIUM 100 MG CAPSULE (FP) PO SCH (22:33)
[2017-12-27] MEDS: PRAMIPEXOLE DIHYDROCHLORIDE 0.25 MG TABLET PO SCH (22:34)
[2017-12-27] MEDS: SENNOSIDES 8.6MG TABLET (FP) PO SCH (22:34)
[2017-12-28] MEDS ORDERED: PIPERACILLIN/TAZOBACTAM 3.375 GM VIAL IVPB ONE ×3 (01:26→17:03)
[2017-12-28] MEDS ORDERED: DEXTROSE 5%-WATER - 50 ML IVPB ONE ×3 (01:26→17:04)
[2017-12-28] MEDS: PIPERACILLIN/TAZOB 3.375 GM 3.375 GM in DEXTROSE 5%-WATER - 50 ML IVPB SCH ×3 (02:10→17:11)
[2017-12-28] MEDS: ACETAMINOPHEN 325 MG TABLET (FP) PO PRN ×3 (02:38→21:24)
[2017-12-28] MEDS: traMADol HCL 50 MG TABLET PO PRN (04:55)
[2017-12-28] MEDS: LEVOTHYROXINE NA 75 MCG TABLET (FP) PO SCH (06:29)
[2017-12-28 07:08] LABS: INR 1.55 (0.83-1.09); PROTHROMBIN TIME (PATIENT) 17.5 SEC (9.7-13.0)
[2017-12-28 07:40] LABS: ALBUMIN 1.9 g/dl (3.4-5.0); ANION GAP 12 MMOL/L (8-16); CHLORIDE 104 mmol/L (98-107); CO2 25 mmol/L (21-32); GLUCOSE,RANDOM 75 mg/dL (74-106); POTASSIUM 3.4 mmol/L (3.5-5.1); SGPT/ALT 60 U/L (12-78); SODIUM 141 mmol/L (136-145)
[2017-12-28 07:46] LABS: ALK PHOS 125 U/L (45-117); BILIRUBIN,TOTAL 0.8 mg/dL (0.2-1.0); BLOOD UREA NITROGEN 13 mg/dL (7-18); CALCIUM 7.9 mg/dL (8.5-10.1); CREATININE 1.2 mg/dL (0.55-1.02); SGOT/AST 47 U/L (15-37); TOT PROT 5.1 g/dl (6.4-8.2)
[2017-12-28 07:55] LABS: BASO % 0.6 % (0-2.0); EOS % 0.7 % (0-4.5); HEMATOCRIT 27.5 % (32.4-45.2); LYMPH % 4.5 % (8-40); MCH 28.3 pg (25.7-33.7); MCHC 32.7 g/dl (32.0-36.0); MEAN CELL VOLUME 86.5 fl (80-96); MEAN PLT VOLUME 8.2 fl (7.5-11.1); NEUT % 79.2 % (42.8-82.8); PLATELET COUNT 184 K/MM3 (134-434); RBC 3.18 M/mm3 (3.60-5.2); RDW 20.2 % (11.6-15.6); WHITE BLOOD COUNT 7.5 K/mm3 (4.0-10.0)
--- NOTE | 2017-12-28 08:01 | PN ---
Progress Note (short form) - Note Progress Note: Patient seen and examined Nurses describe some "sun-downing" although currently alert, frustrated and quite appropriate in conversation Last Vital Signs Temp Pulse Resp BP Pulse Ox 98.6 F 67 18 114/57 97 12/28/17 05:00 12/28/17 05:00 12/28/17 05:00 12/28/17 05:00 12/27/17 21:00 HEENT: EBEN, EOM Intact Oropharynx: No thrush, No mucositis Neck: Supple Nodes: Without adenopathy Breasts: Without masses Cor: RSR, No murmurs, No gallops Lungs: Clear to P&A Abd: Soft, Normal bowel sounds, No organomegaly Ext:LE edema with dressing RLE CBC, BMP 12/28/17 05:30 Current Medications Generic Name Dose Route Start Last Admin Trade Name Freq PRN Reason Stop Dose Admin Acetaminophen 650 mg 12/24/17 10:20 12/28/17 02:38 Tylenol - PO 650 mg Q4H PRN Administration PAIN OR FEVER Atorvastatin Calcium 40 mg 12/23/17 22:00 12/27/17 22:31 Lipitor - PO 40 mg HS [facility] Administration Docusate Sodium 100 mg 12/23/17 22:00 12/27/17 22:33 Colace - PO Not Given HS [facility] Ferrous Sulfate 325 mg 12/27/17 10:00 12/27/17 10:00 Feosol - PO 325 mg DAILY [facility] Administration Fluticasone Propionate 2 spray 12/23/17 10:00 12/27/17 10:01 Flonase - NS 2 spray DAILY [facility] Administration Furosemide 40 mg 12/27/17 10:00 12/27/17 10:00 Lasix Injection - IVPUSH 40 mg DAILY [facility] Administration Gabapentin 600 mg 12/23/17 10:00 12/27/17 10:00 Neurontin - PO 600 mg DAILY [facility] Administration Vancomycin HCl 1 gm in 200 mls @ 133.333 mls/hr 12/23/17 18:00 12/27/17 17:37 Vancomycin 1 Gm Premix - IVPB 133.333 mls/hr Q24H [facility] Administration Protocol Piperacillin Sod/Tazobactam 50 mls @ 100 mls/hr 12/26/17 18:00 12/28/17 02:10 Sod 3.375 gm/ Dextrose IVPB 100 mls/hr Q8H-IV [facility] Administration Protocol Iron Sucrose 300 mg/ Sodium 265 mls @ 132.5 mls/hr 12/27/17 11:00 12/27/17 11 :55 Chloride IVPB 12/29/17 11:59 132.5 mls/hr DAILY [facility] Administration Lactic Acid 1 applic 12/23/17 10:00 12/27/17 10:02 Lac-Hydrin 12 TP 1 applic DAILY [facility] Administration Levothyroxine Sodium 75 mcg 12/23/17 07:00 12/28/17 06:29 Synthroid - PO 75 mcg DAILY@0700 [facility] Administration Pantoprazole Sodium 40 mg 12/23/17 10:00 12/27/17 10:00 Protonix - PO 40 mg DAILY [facility] Administration Potassium Chloride 40 meq 12/25/17 10:00 12/27/17 09:59 K-Dur - PO 40 meq DAILY [facility] Administration Pramipexole Dihydrochloride 0.25 mg 12/23/17 22:00 12/27/17 22:34 Mirapex - PO 0.25 mg HS [facility] Administration Senna 1 tab 12/23/17 22:00 12/27/17 22:34 Senna - PO Not Given [facility] Silver Sulfadiazine 1 applic 12/28/17 10:00 Silvadene - TP DAILY [facility] Tramadol HCl 50 mg 12/24/17 10:19 12/28/17 04:55 Ultram - PO 50 mg Q8H PRN Administration PAIN LEVEL 6-10 Valacyclovir HCl 500 mg 12/23/17 10:00 12/27/17 10:00 Valtrex - PO 500 mg DAILY [facility] Administration Impression: Cellulitis -RLE Myeloma not in remission - on chemotherpay with decadron, velcade and revlimid Plan: DVT prophylaxis - increased risk with myeloma and revlimid therpay Hold chemotherpay for now Continue IV antibiotics per ID
--- NOTE | 2017-12-28 08:15 | PN ---
Progress Note, Physician - Current Medication List Current Medications: Active Medications Acetaminophen (Tylenol -) 650 mg PO Q4H PRN PRN Reason: PAIN OR FEVER Last Admin: 12/28/17 02:38 Dose: 650 mg Atorvastatin Calcium (Lipitor -) 40 mg PO HS [facility] Last Admin: 12/27/17 22:31 Dose: 40 mg Docusate Sodium (Colace -) 100 mg PO HS [facility] Last Admin: 12/27/17 22:33 Dose: Not Given Enoxaparin Sodium (Lovenox -) 40 mg SQ DAILY [facility] Ferrous Sulfate (Feosol -) 325 mg PO DAILY [facility] Last Admin: 12/27/17 10:00 Dose: 325 mg Fluticasone Propionate (Flonase -) 2 spray NS DAILY [facility] Last Admin: 12/27/17 10:01 Dose: 2 spray Furosemide (Lasix Injection -) 40 mg IVPUSH DAILY [facility] Last Admin: 12/27/17 10:00 Dose: 40 mg Gabapentin (Neurontin -) 600 mg PO DAILY [facility] Last Admin: 12/27/17 10:00 Dose: 600 mg Vancomycin HCl (Vancomycin 1 Gm Premix -) 1 gm in 200 mls @ 133.333 mls/hr IVPB Q24H [facility]; Protocol Last Admin: 12/27/17 17:37 Dose: 133.333 mls/hr Piperacillin Sod/Tazobactam (Sod 3.375 gm/ Dextrose) 50 mls @ 100 mls/hr IVPB Q8H-IV [facility]; Protocol Last Admin: 12/28/17 02:10 Dose: 100 mls/hr Iron Sucrose 300 mg/ Sodium (Chloride) 265 mls @ 132.5 mls/hr IVPB DAILY [facility] Stop: 12/29/17 11:59 Last Admin: 12/27/17 11:55 Dose: 132.5 mls/hr Lactic Acid (Lac-Hydrin 12) 1 applic TP DAILY [facility] Last Admin: 12/27/17 10:02 Dose: 1 applic Levothyroxine Sodium (Synthroid -) 75 mcg PO DAILY@0700 [facility] Last Admin: 12/28/17 06:29 Dose: 75 mcg Pantoprazole Sodium (Protonix -) 40 mg PO DAILY [facility] Last Admin: 12/27/17 10:00 Dose: 40 mg Potassium Chloride (K-Dur -) 40 meq PO DAILY [facility] Last Admin: 12/27/17 09:59 Dose: 40 meq Pramipexole Dihydrochloride (Mirapex -) 0.25 mg PO HS [facility] Last Admin: 12/27/17 22:34 Dose: 0.25 mg Senna (Senna -) 1 tab PO HS [facility] Last Admin: 12/27/17 22:34 Dose: Not Given Silver Sulfadiazine (Silvadene -) 1 applic TP DAILY [facility] Tramadol HCl (Ultram -) 50 mg PO Q8H PRN PRN Reason: PAIN LEVEL 6-10 Last Admin: 12/28/17 04:55 Dose: 50 mg Valacyclovir HCl (Valtrex -) 500 mg PO DAILY [facility] Last Admin: 12/27/17 10:00 Dose: 500 mg - Objective Vital Signs: Vital Signs Temperature 98.6 F 12/28/17 05:00 Pulse Rate 67 12/28/17 05:00 Respiratory Rate 18 12/28/17 05:00 Blood Pressure 114/57 12/28/17 05:00 O2 Sat by Pulse Oximetry (%) 97 12/27/17 21:00 Cardiovascular: Yes: Regular Rate and Rhythm Respiratory: Yes: Regular, CTA Bilaterally Gastrointestinal: Yes: Normal Bowel Sounds, Soft Edema: Yes Integumentary: Yes: Erythema Wound/Incision: Yes: Reddened Labs: CBC, BMP 12/28/17 05:30 INR, PTT INR 1.55 (0.83-1.09) H 12/28/17 05:30 Problem List - Problems (1) Bullous disorder Assessment/Plan: -DERM AND SURGICAL CONSULT Noted--blister opened Code(s): L13.9 - BULLOUS DISORDER, UNSPECIFIED (2) Cellulitis Code(s): L03.90 - CELLULITIS, UNSPECIFIED Qualifiers: Site of cellulitis: extremity Site of cellulitis of extremity: lower extremity Laterality: right Qualified Code(s): L03.115 - Cellulitis of right lower limb (3) Fever Assessment/Plan: -Resolved CULTURES Microbiology 12/26/17 10:00 Ulcer Gram Stain - Final 12/22/17 13:48 Blood - Peripheral Venous Blood Culture - Preliminary NO GROWTH OBTAINED AFTER 96 HOURS, INCUBATION TO CONTINUE FOR 1 DAYS. 12/22/17 13:48 Blood - Peripheral Venous Blood Culture - Preliminary NO GROWTH OBTAINED AFTER 96 HOURS, INCUBATION TO CONTINUE FOR 1 DAYS. 12/22/17 15:00 Urine - Urine Clean Catch Urine Culture - Final NO GROWTH OBTAINED -IV ABX -ID CONSULT Code(s): R50.9 - FEVER, UNSPECIFIED (4) Leg pain Assessment/Plan: -DUPLEX NEG -SURGICAL CONSULT--noted and discussed -ABX Code(s): M79.606 - PAIN IN LEG, UNSPECIFIED Qualifiers: Laterality: left Qualified Code(s): M79.605 - Pain in left leg (5) Multiple myeloma Assessment/Plan: -Seen by Oncology Code(s): C90.00 - MULTIPLE MYELOMA NOT HAVING ACHIEVED REMISSION (6) Elevated INR Assessment/Plan: -2/2 to abx -warfarin on hold -Vit K 5 mg po once given -daily INR's -observe for any overt bleeding Code(s): R79.1 - ABNORMAL COAGULATION PROFILE (7) Afib Assessment/Plan: -chronic -controlled -Warfarin on hold -INR elevated -check daily INR's Code(s): I48.91 - UNSPECIFIED ATRIAL FIBRILLATION
[2017-12-28] MEDS ORDERED: PT OWN MED DRAWER 7, Y5N ONE ×2 (09:39→21:19)
[2017-12-28] MEDS: GABAPENTIN 300 MG CAPSULE (FP) PO SCH (09:44)
[2017-12-28] MEDS: FERROUS SO4 325 MG TABLET (FP) PO SCH (09:44)
[2017-12-28] MEDS: POTASSIUM CHLORIDE TABS 10 MEQ TABLET.ER (FP) PO SCH (09:45)
[2017-12-28] MEDS: PANTOPRAZOLE 40 MG TABLET (FP) PO SCH (09:45)
[2017-12-28] MEDS: FUROSEMIDE 40 MG/4 ML INJECTABLE VIAL IVPUSH SCH (09:45)
[2017-12-28] MEDS: valACYclovir HCL 500 MG TABLET (FP) PO SCH (09:45)
[2017-12-28] MEDS ORDERED: DEXAMETHASONE 4 MG TABLET (FP) PO SCH (10:00)
[2017-12-28] MEDS ORDERED: WARFARIN NA PO SCH (10:00)
[2017-12-28] MEDS: ENOXAPARIN NA (PORCINE) 40 MG/0.4 ML DISP.SYRIN SQ SCH (10:01)
--- NOTE | 2017-12-28 10:03 | PN ---
Progress Note (short form) - Note Progress Note: s: no cp sob palps dizzy. no complaints o: Vital Signs Period Temp Pulse Resp BP Sys/Ferrer Pulse Ox Last 24 Hr 98.6 F-100.3 F 67-82 18-20 102-129/55-67 97 Constitutional: Yes: No Distress, Calm Eyes: Yes: Conjunctiva Clear Respiratory: Yes: Regular, CTA Bilaterally Gastrointestinal: Yes: Normal Bowel Sounds, Soft Cardiovascular: Yes: Regular Rate and Rhythm Heart Sounds: Yes: S1, S2 Murmur: Yes: Systolic Murmur Extremities: Yes: Other (L ankle/foot erythema, tender to palpation) Edema: Yes no jaundice diaphoresis Neurological: Yes: Alert, Oriented Current Medications Acetaminophen (Tylenol -) 650 mg PO Q4H PRN PRN Reason: PAIN OR FEVER Last Admin: 12/28/17 09:59 Dose: 650 mg Atorvastatin Calcium (Lipitor -) 40 mg PO HS [facility] Last Admin: 12/27/17 22:31 Dose: 40 mg Docusate Sodium (Colace -) 100 mg PO [facility] Last Admin: 12/27/17 22:33 Dose: Not Given Enoxaparin Sodium (Lovenox -) 40 mg SQ DAILY [facility] Last Admin: 12/28/17 10:01 Dose: 40 mg Ferrous Sulfate (Feosol -) 325 mg PO DAILY [facility] Last Admin: 12/28/17 09:44 Dose: 325 mg Fluticasone Propionate (Flonase -) 2 spray NS DAILY [facility] Last Admin: 12/27/17 10:01 Dose: 2 spray Furosemide (Lasix Injection -) 40 mg IVPUSH DAILY [facility] Last Admin: 12/28/17 09:45 Dose: 40 mg Gabapentin (Neurontin -) 600 mg PO DAILY [facility] Last Admin: 12/28/17 09:44 Dose: 600 mg Vancomycin HCl (Vancomycin 1 Gm Premix -) 1 gm in 200 mls @ 133.333 mls/hr IVPB Q24H [facility]; Protocol Last Admin: 12/27/17 17:37 Dose: 133.333 mls/hr Piperacillin Sod/Tazobactam (Sod 3.375 gm/ Dextrose) 50 mls @ 100 mls/hr IVPB Q8H-IV [facility]; Protocol Last Admin: 12/28/17 09:44 Dose: 100 mls/hr Iron Sucrose 300 mg/ Sodium (Chloride) 265 mls @ 132.5 mls/hr IVPB DAILY [facility] Stop: 12/29/17 11:59 Last Admin: 12/27/17 11:55 Dose: 132.5 mls/hr Lactic Acid (Lac-Hydrin 12) 1 applic TP DAILY [facility] Last Admin: 12/27/17 10:02 Dose: 1 applic Levothyroxine Sodium (Synthroid -) 75 mcg PO DAILY@0700 [facility] Last Admin: 12/28/17 06:29 Dose: 75 mcg Non-Formulary Medication (Warfarin Na) 4 each PO DAILY [facility] Pantoprazole Sodium (Protonix -) 40 mg PO DAILY [facility] Last Admin: 12/28/17 09:45 Dose: 40 mg Potassium Chloride (K-Dur -) 40 meq PO DAILY [facility] Last Admin: 12/28/17 09:45 Dose: 40 meq Pramipexole Dihydrochloride (Mirapex -) 0.25 mg PO HS [facility] Last Admin: 12/27/17 22:34 Dose: 0.25 mg Senna (Senna -) 1 tab PO HS [facility] Last Admin: 12/27/17 22:34 Dose: Not Given Silver Sulfadiazine (Silvadene -) 1 applic TP DAILY [facility] Tramadol HCl (Ultram -) 50 mg PO Q8H PRN PRN Reason: PAIN LEVEL 6-10 Last Admin: 12/28/17 04:55 Dose: 50 mg Valacyclovir HCl (Valtrex -) 500 mg PO DAILY [facility] Last Admin: 12/28/17 09:45 Dose: 500 mg Assessment/Plan MPI 2013 ([facility]): no STs; no ischemia; nl EF Echo 09/08: nl LV size and function, EF 55-60%, mild AR, RA mildly enlarged, mild -mod TR, aorta atherosclerotic plaque present Echo 2014: nl LVSF; nl RV; mild-mod AI; mod TR; RVSP 40-50 Carotids 12/09: minimal athero, normal velocity. EKG sinus with PACs, LVH srinivas lower ext venous ultrasound no DVT CT chest: small srinivas pleural effusions 87F h/o DM, cellulitis, mult myeloma, afib and DVT on coumadin, hypothyroidism p /w fever Bilat pleural effusions - no h/o CHF, prior echo nl EF - IV lasix 40 mg daily ordered, received 12/27, 5 - euvolemic today, no dyspnea - restart lasix 40 mg PO daily, ordered to start tomorrow AM - trend Cr, I/O, daily weight Positive troponin - 0.06->0.11->0.12, mild elevation with flat trend, asymptomatic. not c/w acs. - EKG not concerning for ischemia fever, cellulitis - on abx - ID following Afib - in sr - continue coumadin per inr - metoprolol held, has had low BPs here - rate stable DVT - on warfarin HLD - cont statin DM - manage per primary team
[2017-12-28] MEDS: FLUTICASONE PROP 0.05% 16 GM NASAL SPRAY NS SCH (10:32)
[2017-12-28] MEDS: SILVER SULFADIAZINE 1% TOP CREAM 400 GM JAR TP SCH (10:33)
[2017-12-28] MEDS: AMMONIUM LACTATE 12% LOTION 225 GM BOTTLE TP SCH (10:33)
[2017-12-28] MEDS: IRON SUCROSE INJECTION 300 MG in SODIUM CHLORIDE 250 ML IVPB SCH (10:58)
[2017-12-28] MEDS: WARFARIN NA 2 MG TABLET (UD) PO SCH (17:11)
[2017-12-28] MEDS: VANCOMYCIN 1 GM PREMIX - 1 GM/200 ML BAG IVPB SCH (17:57)
--- NOTE | 2017-12-28 18:19 | PN ---
Progress Note (short form) - Note Progress Note: less leg pain now day #5 vancomycin, day #6 zosyn Vital Signs Period Temp Pulse Resp BP Sys/Ferrer Pulse Ox Last 24 Hr 98.2 F-99.8 F 65-72 18-20 102-124/50-67 97-97 cor-rrr lungs clear abd soft,nt ext decraesed erythema of the RLE, large open ulcer, +serous drainage CBC, BMP 12/28/17 05:30 12/28/17 05:30 Microbiology 12/26/17 10:00 Ulcer Gram Stain - Final 12/26/17 10:00 Ulcer Wound Culture - Final Morganella Morganii 12/27/17 10:45 Stool Clostridium difficile Antigen (GAETANO) - Final 12/27/17 10:45 Stool Clostridium difficile Toxin Assay - Final 12/26/17 10:20 Blood - Peripheral Venous Blood Culture - Preliminary NO GROWTH OBTAINED AFTER 48 HOURS, INCUBATION TO CONTINUE FOR 3 DAYS. 12/26/17 10:15 Blood - Peripheral Venous Blood Culture - Preliminary NO GROWTH OBTAINED AFTER 48 HOURS, INCUBATION TO CONTINUE FOR 3 DAYS. 12/22/17 13:48 Blood - Peripheral Venous Blood Culture - Final NO GROWTH AFTER 5 DAYS INCUBATION 12/22/17 13:48 Blood - Peripheral Venous Blood Culture - Final NO GROWTH AFTER 5 DAYS INCUBATION 12/22/17 15:00 Urine - Urine Clean Catch Urine Culture - Final NO GROWTH OBTAINED a/p fevers resolving switch to ceftriaxone based on ulcer culture history of multiple myeloma
[2017-12-28] MEDS: ATORVASTATIN CA 40 MG TABLET (FP) PO SCH (21:23)
[2017-12-28] MEDS: SENNOSIDES 8.6MG TABLET (FP) PO SCH (21:23)
[2017-12-28] MEDS: PRAMIPEXOLE DIHYDROCHLORIDE 0.25 MG TABLET PO SCH (21:23)
[2017-12-28] MEDS: DOCUSATE SODIUM 100 MG CAPSULE (FP) PO SCH (21:23)
[2017-12-29] MEDS: LEVOTHYROXINE NA 75 MCG TABLET (FP) PO SCH (06:29)
[2017-12-29 06:46] LABS: BASO % 0.7 % (0-2.0); EOS % 0.4 % (0-4.5); HEMATOCRIT 28.6 % (32.4-45.2); HEMOGLOBIN 9.5 GM/dL (10.7-15.3); LYMPH % 4.1 % (8-40); MCH 28.5 pg (25.7-33.7); MCHC 33.1 g/dl (32.0-36.0); MEAN CELL VOLUME 86.1 fl (80-96); MEAN PLT VOLUME 8.6 fl (7.5-11.1); MONO % 11.8 % (3.8-10.2); PLATELET COUNT 236 K/MM3 (134-434); RBC 3.32 M/mm3 (3.60-5.2); RDW 20.2 % (11.6-15.6); WHITE BLOOD COUNT 9.1 K/mm3 (4.0-10.0)
[2017-12-29 07:09] LABS: INR 1.94 (0.83-1.09); PROTHROMBIN TIME (PATIENT) 21.9 SEC (9.7-13.0)
[2017-12-29 07:43] LABS: CHLORIDE 103 mmol/L (98-107); POTASSIUM 3.5 mmol/L (3.5-5.1); SODIUM 140 mmol/L (136-145)
[2017-12-29] MEDS: traMADol HCL 50 MG TABLET PO PRN ×2 (07:46→18:25)
[2017-12-29 07:53] LABS: ALBUMIN 1.9 g/dl (3.4-5.0); ALK PHOS 126 U/L (45-117); ANION GAP 9 MMOL/L (8-16); BILIRUBIN,TOTAL 0.7 mg/dL (0.2-1.0); BLOOD UREA NITROGEN 15 mg/dL (7-18); CALCIUM 7.9 mg/dL (8.5-10.1); CO2 28 mmol/L (21-32); CREATININE 1.1 mg/dL (0.55-1.02); GLUCOSE,RANDOM 78 mg/dL (74-106); SGOT/AST 39 U/L (15-37); SGPT/ALT 51 U/L (12-78); TOT PROT 5.3 g/dl (6.4-8.2)
--- NOTE | 2017-12-29 08:38 | PN ---
Progress Note, Physician - Current Medication List Current Medications: Active Medications Acetaminophen (Tylenol -) 650 mg PO Q4H PRN PRN Reason: PAIN OR FEVER Last Admin: 12/28/17 21:24 Dose: 650 mg Atorvastatin Calcium (Lipitor -) 40 mg PO HS [facility] Last Admin: 12/28/17 21:23 Dose: 40 mg Docusate Sodium (Colace -) 100 mg PO HS [facility] Last Admin: 12/28/17 21:23 Dose: 100 mg Enoxaparin Sodium (Lovenox -) 40 mg SQ DAILY [facility] Last Admin: 12/28/17 10:01 Dose: 40 mg Ferrous Sulfate (Feosol -) 325 mg PO DAILY [facility] Last Admin: 12/28/17 09:44 Dose: 325 mg Fluticasone Propionate (Flonase -) 2 spray NS DAILY [facility] Last Admin: 12/28/17 10:32 Dose: 2 spray Furosemide (Lasix -) 40 mg PO DAILY [facility] Gabapentin (Neurontin -) 600 mg PO DAILY [facility] Last Admin: 12/28/17 09:44 Dose: 600 mg Iron Sucrose 300 mg/ Sodium (Chloride) 265 mls @ 132.5 mls/hr IVPB DAILY [facility] Stop: 12/29/17 11:59 Last Admin: 12/28/17 10:58 Dose: 132.5 mls/hr Ceftriaxone Sodium 2 gm/ (Dextrose) 100 mls @ 200 mls/hr IVPB DAILY [facility]; Protocol Lactic Acid (Lac-Hydrin 12) 1 applic TP DAILY [facility] Last Admin: 12/28/17 10:33 Dose: 1 applic Levothyroxine Sodium (Synthroid -) 75 mcg PO DAILY@0700 [facility] Last Admin: 12/29/17 06:29 Dose: 75 mcg Pantoprazole Sodium (Protonix -) 40 mg PO DAILY [facility] Last Admin: 12/28/17 09:45 Dose: 40 mg Potassium Chloride (K-Dur -) 40 meq PO DAILY [facility] Last Admin: 12/28/17 09:45 Dose: 40 meq Pramipexole Dihydrochloride (Mirapex -) 0.25 mg PO HS [facility] Last Admin: 12/28/17 21:23 Dose: 0.25 mg Senna (Senna -) 1 tab PO HS [facility] Last Admin: 12/28/17 21:23 Dose: 1 tab Silver Sulfadiazine (Silvadene -) 1 applic TP DAILY [facility] Last Admin: 12/28/17 10:33 Dose: 1 applic Tramadol HCl (Ultram -) 50 mg PO Q8H PRN PRN Reason: PAIN LEVEL 6-10 Last Admin: 12/29/17 07:46 Dose: 50 mg Valacyclovir HCl (Valtrex -) 500 mg PO DAILY [facility] Last Admin: 12/28/17 09:45 Dose: 500 mg Warfarin Sodium (Coumadin -) 4 mg PO DAILY@1800 [facility] Last Admin: 12/28/17 17:11 Dose: 4 mg - Objective Vital Signs: Vital Signs Temperature 98.2 F 12/29/17 07:00 Pulse Rate 65 12/29/17 07:00 Respiratory Rate 18 12/29/17 07:00 Blood Pressure 106/51 12/29/17 07:00 O2 Sat by Pulse Oximetry (%) 95 12/28/17 21:00 Cardiovascular: Yes: S1, S2 Respiratory: Yes: Regular, CTA Bilaterally Gastrointestinal: Yes: Normal Bowel Sounds, Soft Musculoskeletal: Yes: Muscle Pain, Muscle Weakness Integumentary: Yes: Erythema Wound/Incision: Yes: Dressing Dry and Intact Labs: CBC, BMP 12/29/17 05:30 12/29/17 05:30 INR, PTT INR 1.94 (0.83-1.09) H 12/29/17 05:30 Problem List - Problems (1) Bullous disorder Assessment/Plan: -DERM AND SURGICAL CONSULT Noted--blister opened Code(s): L13.9 - BULLOUS DISORDER, UNSPECIFIED (2) Cellulitis Assessment/Plan: -IV ABX--changed to rocephin -FOLLOW LABS -ID consult noted -acetaminophen 650 mg po Q6H PRN for fever >100.0 F or Pain of 1-3 Code(s): L03.90 - CELLULITIS, UNSPECIFIED Qualifiers: Site of cellulitis: extremity Site of cellulitis of extremity: lower extremity Laterality: right Qualified Code(s): L03.115 - Cellulitis of right lower limb (3) Fever Assessment/Plan: -Resolved CULTURES Microbiology 12/26/17 10:00 Ulcer Gram Stain - Final 12/22/17 13:48 Blood - Peripheral Venous Blood Culture - Preliminary NO GROWTH OBTAINED AFTER 96 HOURS, INCUBATION TO CONTINUE FOR 1 DAYS. 12/22/17 13:48 Blood - Peripheral Venous Blood Culture - Preliminary NO GROWTH OBTAINED AFTER 96 HOURS, INCUBATION TO CONTINUE FOR 1 DAYS. 12/22/17 15:00 Urine - Urine Clean Catch Urine Culture - Final NO GROWTH OBTAINED -IV ABX -ID CONSULT Code(s): R50.9 - FEVER, UNSPECIFIED (4) Leg pain Assessment/Plan: -DUPLEX NEG -SURGICAL CONSULT--noted and discussed -ABX Code(s): M79.606 - PAIN IN LEG, UNSPECIFIED Qualifiers: Laterality: left Qualified Code(s): M79.605 - Pain in left leg (5) Multiple myeloma Assessment/Plan: -Seen by Oncology Code(s): C90.00 - MULTIPLE MYELOMA NOT HAVING ACHIEVED REMISSION (6) Elevated INR Assessment/Plan: -2/2 to abx -warfarin on hold -Vit K 5 mg po once given -daily INR's -observe for any overt bleeding Code(s): R79.1 - ABNORMAL COAGULATION PROFILE (7) Afib Assessment/Plan: -chronic -controlled -Warfarin restarted -check daily INR's Code(s): I48.91 - UNSPECIFIED ATRIAL FIBRILLATION (8) CHF (congestive heart failure) Assessment/Plan: -w pleural effusions -now on po lasix Code(s): I50.9 - HEART FAILURE, UNSPECIFIED
[2017-12-29] MEDS ORDERED: PT OWN MED DRAWER 7, Y5N ONE ×2 (09:08→21:07)
[2017-12-29] MEDS ORDERED: DEXTROSE 5%-WATER 100 ML IVPB ONE (09:08)
[2017-12-29] MEDS: FUROSEMIDE 40 MG TABLET (FP) PO SCH (09:15)
[2017-12-29] MEDS: ENOXAPARIN NA (PORCINE) 40 MG/0.4 ML DISP.SYRIN SQ SCH (09:15)
[2017-12-29] MEDS: CEFTRIAXONE 2 GM in DEXTROSE 5%-WATER 100 ML IVPB SCH (09:15)
[2017-12-29] MEDS: GABAPENTIN 300 MG CAPSULE (FP) PO SCH (09:15)
[2017-12-29] MEDS: PANTOPRAZOLE 40 MG TABLET (FP) PO SCH (09:16)
[2017-12-29] MEDS: POTASSIUM CHLORIDE TABS 10 MEQ TABLET.ER (FP) PO SCH (09:16)
[2017-12-29] MEDS: valACYclovir HCL 500 MG TABLET (FP) PO SCH (09:16)
[2017-12-29] MEDS: FERROUS SO4 325 MG TABLET (FP) PO SCH (09:16)
[2017-12-29] MEDS: FLUTICASONE PROP 0.05% 16 GM NASAL SPRAY NS SCH (09:17)
[2017-12-29] MEDS: AMMONIUM LACTATE 12% LOTION 225 GM BOTTLE TP SCH (09:17)
[2017-12-29] MEDS: SILVER SULFADIAZINE 1% TOP CREAM 400 GM JAR TP SCH (09:17)
[2017-12-29] MEDS: IRON SUCROSE INJECTION 300 MG in SODIUM CHLORIDE 250 ML IVPB SCH (10:15)
--- NOTE | 2017-12-29 10:57 | PN ---
Progress Note (short form) - Note Progress Note: s: no cp sob palps dizzy o: Vital Signs Period Temp Pulse Resp BP Sys/Ferrer Pulse Ox Last 24 Hr 98.2 F-99.2 F 65-72 18-18 106-116/44-54 95 Constitutional: Yes: No Distress, Calm Eyes: Yes: Conjunctiva Clear Respiratory: Yes: Regular, CTA Bilaterally Gastrointestinal: Yes: Normal Bowel Sounds, Soft Cardiovascular: Yes: Regular Rate and Rhythm Heart Sounds: Yes: S1, S2 Murmur: Yes: Systolic Murmur Extremities: Yes: Other (L ankle/foot erythema, tender to palpation) Edema: Yes no jaundice diaphoresis Neurological: Yes: Alert, Oriented Current Medications Generic Name Dose Route Start Last Admin Trade Name Freq PRN Reason Stop Dose Admin Acetaminophen 650 mg 12/24/17 10:20 12/28/17 21:24 Tylenol - PO 650 mg Q4H PRN Administration PAIN OR FEVER Atorvastatin Calcium 40 mg 12/23/17 22:00 12/28/17 21:23 Lipitor - PO 40 mg HS [facility] Administration Docusate Sodium 100 mg 12/23/17 22:00 12/28/17 21:23 Colace - PO 100 mg HS [facility] Administration Enoxaparin Sodium 40 mg 12/28/17 10:00 12/29/17 09:15 Lovenox - SQ 40 mg DAILY [facility] Administration Ferrous Sulfate 325 mg 12/27/17 10:00 12/29/17 09:16 Feosol - PO 325 mg DAILY [facility] Administration Fluticasone Propionate 2 spray 12/23/17 10:00 12/29/17 09:17 Flonase - NS 2 spray DAILY [facility] Administration Furosemide 40 mg 12/29/17 10:00 12/29/17 09:15 Lasix - PO 40 mg DAILY [facility] Administration Gabapentin 600 mg 12/23/17 10:00 12/29/17 09:15 Neurontin - PO 600 mg DAILY [facility] Administration Iron Sucrose 300 mg/ Sodium 265 mls @ 132.5 mls/hr 12/27/17 11:00 12/29/17 10 :15 Chloride IVPB 12/29/17 11:59 132.5 mls/hr DAILY [facility] Administration Ceftriaxone Sodium 2 gm/ 100 mls @ 200 mls/hr 12/29/17 10:00 12/29/17 09:15 Dextrose IVPB 200 mls/hr DAILY [facility] Administration Protocol Lactic Acid 1 applic 12/23/17 10:00 12/29/17 09:17 Lac-Hydrin 12 TP 1 applic DAILY [facility] Administration Levothyroxine Sodium 75 mcg 12/23/17 07:00 12/29/17 06:29 Synthroid - PO 75 mcg DAILY@0700 [facility] Administration Pantoprazole Sodium 40 mg 12/23/17 10:00 12/29/17 09:16 Protonix - PO 40 mg DAILY [facility] Administration Potassium Chloride 40 meq 12/25/17 10:00 12/29/17 09:16 K-Dur - PO 40 meq DAILY [facility] Administration Pramipexole Dihydrochloride 0.25 mg 12/23/17 22:00 12/28/17 21:23 Mirapex - PO 0.25 mg HS [facility] Administration Senna 1 tab 12/23/17 22:00 12/28/17 21:23 Senna - PO 1 tab HS [facility] Administration Silver Sulfadiazine 1 applic 12/28/17 10:00 12/29/17 09:17 Silvadene - TP 1 applic DAILY [facility] Administration Tramadol HCl 50 mg 12/24/17 10:19 12/29/17 07:46 Ultram - PO 50 mg Q8H PRN Administration PAIN LEVEL 6-10 Valacyclovir HCl 500 mg 12/23/17 10:00 12/29/17 09:16 Valtrex - PO 500 mg DAILY [facility] Administration Warfarin Sodium 4 mg 12/28/17 18:00 12/28/17 17:11 Coumadin - PO 4 mg DAILY@1800 [facility] Administration CBC, BMP 12/29/17 05:30 12/29/17 05:30 Assessment/Plan MPI 2013 (damir): no STs; no ischemia; nl EF Echo 09/08: nl LV size and function, EF 55-60%, mild AR, RA mildly enlarged, mild -mod TR, aorta atherosclerotic plaque present Echo 2014: nl LVSF; nl RV; mild-mod AI; mod TR; RVSP 40-50 Carotids 12/09: minimal athero, normal velocity. EKG sinus with PACs, LVH srinivas lower ext venous ultrasound no DVT tele: sinus with PACs 87F h/o DM, cellulitis, mult myeloma, afib and DVT on coumadin, hypothyroidism p /w fever Bilat pleural effusions - no h/o CHF, prior echo nl EF - IV lasix 40 mg daily ordered, received 12/27, 5 - euvolemic today, no dyspnea - restarted lasix 40 mg PO daily Positive troponin - 0.06->0.11->0.12, mild elevation with flat trend, asymptomatic. not c/w acs. - EKG not concerning for ischemia fever, cellulitis - on abx - ID following Afib - in sr - continue coumadin per inr - metoprolol held, has had low BPs here - rate stable DVT - on warfarin HLD - cont statin DM - manage per primary team
--- NOTE | 2017-12-29 16:07 | PN ---
Progress Note (short form) - Note Progress Note: Pt continues to have low grade temps and states that her foot is pulper tender. Vital Signs Period Temp Pulse Resp BP Sys/Ferrer Pulse Ox Last 24 Hr 98.2 F-100.5 F 65-75 18-20 102-120/43-51 95-98 GEN: A&0x3 Right foot: Decreased swelling but remains erythematous. Ulcer on the medial aspect unchanged and with silvadene on the wound. No further skin breaks noted. Her foot remains warm to the touch with a palpable pulse. CBC, BMP 12/29/17 05:30 12/29/17 05: 12/29/17 05:30 Problem List - Problems (1) Cellulitis of leg, right Assessment/Plan: Continue IV abx as per ID, changing antibiotcs to cover wound culture growth. Overall there is a decreased in the swelling of her leg/foot but there is still some erythema and serous drainage Continue local wound care D/w Dr. Zaman Code(s): L03.115 - CELLULITIS OF RIGHT LOWER LIMB
[2017-12-29] MEDS: WARFARIN NA 2 MG TABLET (UD) PO SCH (17:42)
[2017-12-29] MEDS: PRAMIPEXOLE DIHYDROCHLORIDE 0.25 MG TABLET PO SCH (21:22)
[2017-12-29] MEDS: ATORVASTATIN CA 40 MG TABLET (FP) PO SCH (21:22)
[2017-12-29] MEDS: DOCUSATE SODIUM 100 MG CAPSULE (FP) PO SCH (21:22)
[2017-12-29] MEDS: SENNOSIDES 8.6MG TABLET (FP) PO SCH (21:22)
[2017-12-30] MEDS: LEVOTHYROXINE NA 75 MCG TABLET (FP) PO SCH (06:49)
[2017-12-30] MEDS: traMADol HCL 50 MG TABLET PO PRN (07:57)
[2017-12-30] MEDS ORDERED: PT OWN MED DRAWER 7, Y5N ONE (09:50)
[2017-12-30] MEDS ORDERED: DEXTROSE 5%-WATER 100 ML IVPB ONE (09:55)
--- NOTE | 2017-12-30 10:01 | PN ---
Progress Note (short form) - Note Progress Note: s: no cp sob palps dizzy o: Vital Signs Period Temp Pulse Resp BP Sys/Ferrer Pulse Ox Last 24 Hr 99.1 F-100.5 F 70-75 18-20 113-124/43-64 97 Constitutional: Yes: No Distress, Calm Eyes: Yes: Conjunctiva Clear Respiratory: Yes: Regular, CTA Bilaterally Gastrointestinal: Yes: Normal Bowel Sounds, Soft Cardiovascular: Yes: Regular Rate and Rhythm Heart Sounds: Yes: S1, S2 Murmur: Yes: Systolic Murmur Extremities: Yes: Other (L ankle/foot erythema, tender to palpation) Edema: Yes no jaundice diaphoresis Neurological: Yes: Alert, Oriented Current Medications Generic Name Dose Route Start Last Admin Trade Name Freq PRN Reason Stop Dose Admin Acetaminophen 650 mg 12/24/17 10:20 12/28/17 21:24 Tylenol - PO 650 mg Q4H PRN Administration PAIN OR FEVER Atorvastatin Calcium 40 mg 12/23/17 22:00 12/29/17 21:22 Lipitor - PO 40 mg HS [facility] Administration Docusate Sodium 100 mg 12/23/17 22:00 12/29/17 21:22 Colace - PO 100 mg HS [facility] Administration Enoxaparin Sodium 40 mg 12/28/17 10:00 12/29/17 09:15 Lovenox - SQ 40 mg DAILY [facility] Administration Ferrous Sulfate 325 mg 12/27/17 10:00 12/29/17 09:16 Feosol - PO 325 mg DAILY [facility] Administration Fluticasone Propionate 2 spray 12/23/17 10:00 12/29/17 09:17 Flonase - NS 2 spray DAILY [facility] Administration Furosemide 40 mg 12/29/17 10:00 12/29/17 09:15 Lasix - PO 40 mg DAILY [facility] Administration Gabapentin 600 mg 12/23/17 10:00 12/29/17 09:15 Neurontin - PO 600 mg DAILY [facility] Administration Ceftriaxone Sodium 2 gm/ 100 mls @ 200 mls/hr 12/29/17 10:00 12/29/17 09:15 Dextrose IVPB 200 mls/hr DAILY [facility] Administration Protocol Lactic Acid 1 applic 12/23/17 10:00 12/29/17 09:17 Lac-Hydrin 12 TP 1 applic DAILY [facility] Administration Levothyroxine Sodium 75 mcg 12/23/17 07:00 12/30/17 06:49 Synthroid - PO 75 mcg DAILY@0700 [facility] Administration Pantoprazole Sodium 40 mg 12/23/17 10:00 12/29/17 09:16 Protonix - PO 40 mg DAILY [facility] Administration Potassium Chloride 40 meq 12/25/17 10:00 12/29/17 09:16 K-Dur - PO 40 meq DAILY [facility] Administration Pramipexole Dihydrochloride 0.25 mg 12/23/17 22:00 12/29/17 21:22 Mirapex - PO 0.25 mg HS [facility] Administration Senna 1 tab 12/23/17 22:00 12/29/17 21:22 Senna - PO 1 tab HS [facility] Administration Silver Sulfadiazine 1 applic 12/28/17 10:00 12/29/17 09:17 Silvadene - TP 1 applic DAILY [facility] Administration Warfarin Sodium 4 mg 12/28/17 18:00 12/29/17 17:42 Coumadin - PO 4 mg DAILY@1800 [facility] Administration Laboratory Last Values WBC 9.1 K/mm3 (4.0-10.0) 12/29/17 05:30 RBC 3.32 M/mm3 (3.60-5.2) L 12/29/17 05:30 Hgb 9.5 GM/dL (10.7-15.3) L 12/29/17 05:30 Hct 28.6 % (32.4-45.2) L 12/29/17 05:30 MCV 86.1 fl (80-96) 12/29/17 05:30 MCH 28.5 pg (25.7-33.7) 12/29/17 05:30 MCHC 33.1 g/dl (32.0-36.0) 12/29/17 05:30 RDW 20.2 % (11.6-15.6) H 12/29/17 05:30 Plt Count 236 K/MM3 (134-434) D 12/29/17 05:30 MPV 8.6 fl (7.5-11.1) 12/29/17 05:30 Absolute Neuts (auto) 7.5 K/mm3 (1.5-8.0) 12/29/17 05:30 Total Counted 100 12/22/17 15:00 Neutrophils % 83.0 % (42.8-82.8) H 12/29/17 05:30 Neutrophils % (Manual) 77.9 % (42.8-82.8) 12/26/17 05:30 Band Neutrophils % 0.0 % 12/26/17 05:30 Lymphocytes % 4.1 % (8-40) L 12/29/17 05:30 Lymphocytes % (Manual) 5.8 % (8-40) L 12/26/17 05:30 Monocytes % 11.8 % (3.8-10.2) H 12/29/17 05:30 Monocytes % (Manual) 16 % (3.8-10.2) H D 12/26/17 05:30 Eosinophils % 0.4 % (0-4.5) 12/29/17 05:30 Eosinophils % (Manual) 0.0 % (0-4.5) D 12/26/17 05:30 Basophils % 0.7 % (0-2.0) 12/29/17 05:30 Basophils % (Manual) 0.0 % (0-2.0) 12/26/17 05:30 Myelocytes % (Man) 0 % (0-2) 12/26/17 05:30 Promyelocytes % (Man) 0 % (0-2) 12/26/17 05:30 Blast Cells % (Manual) 0 % (0-0) 12/26/17 05:30 Nucleated RBC % 0 % (0-0) 12/29/17 05:30 Metamyelocytes 0 % (0-2) D 12/26/17 05:30 Hypochromia 0 12/26/17 05:30 Platelet Estimate Decreased 12/26/17 05:30 Platelet Comment No clumping noted 12/22/17 15:00 Polychromasia 0 12/26/17 05:30 Poikilocytosis 0 12/26/17 05:30 Anisocytosis 1+ 12/26/17 05:30 Microcytosis 1+ 12/26/17 05:30 Macrocytosis 0 12/26/17 05:30 Ovalocytes 1+ 12/23/17 05:15 ESR 112 mm/hr (0-30) H 12/26/17 05:30 PT with INR 21.90 SEC (9.7-13.0) H 12/29/17 05:30 INR 1.94 (0.83-1.09) H 12/29/17 05:30 PTT (Actin FS) 34.1 SECONDS (25.2-36.5) 12/22/17 15:23 VBG pH 7.39 (7.32-7.42) 12/22/17 15:00 POC VBG pCO2 43.1 mmHg (38-52) D 12/22/17 15:00 POC VBG pO2 20.2 mmHg (28-48) L D 12/22/17 15:00 Mixed VBG HCO3 25.6 meq/L (19-25) H 12/22/17 15:00 Sodium 140 mmol/L (136-145) 12/29/17 05:30 Potassium 3.5 mmol/L (3.5-5.1) 12/29/17 05:30 Chloride 103 mmol/L (98-107) 12/29/17 05:30 Carbon Dioxide 28 mmol/L (21-32) 12/29/17 05:30 Anion Gap 9 MMOL/L (8-16) 12/29/17 05:30 BUN 15 mg/dL (7-18) 12/29/17 05:30 Creatinine 1.1 mg/dL (0.55-1.02) H 12/29/17 05:30 Creat Clearance w eGFR 47.21 (>60) 12/29/17 05:30 POC Glucometer 139 UNITS (80-120) 12/23/17 21:21 Random Glucose 78 mg/dL (74-106) 12/29/17 05:30 Hemoglobin A1c % 5.0 % (4.8-6.0) 12/23/17 05:15 Lactic Acid 1.0 mmol/L (0.0-2.0) 12/22/17 18:10 Calcium 7.9 mg/dL (8.5-10.1) L 12/29/17 05:30 Phosphorus 3.8 mg/dL (2.5-4.9) 12/23/17 05:15 Magnesium 2.0 mg/dL (1.8-2.4) 12/23/17 05:15 Iron 8 ug/dL (27-139) L 12/24/17 10:40 TIBC 218 ug/dL (250-450) L 12/24/17 10:40 Iron Saturation 4 % (15-55) L 12/24/17 10:40 Ferritin 253.9 ng/ml (6.9-282.5) 12/24/17 10:40 Total Bilirubin 0.7 mg/dL (0.2-1.0) 12/29/17 05:30 AST 39 U/L (15-37) H 12/29/17 05:30 ALT 51 U/L (12-78) 12/29/17 05:30 Alkaline Phosphatase 126 U/L (45-117) H 12/29/17 05:30 LD Total 229 U/L (84-246) 12/26/17 05:30 Creatine Kinase 856 IU/L (26-192) H 12/23/17 05:15 Creatine Kinase Index 0.2 % (0.0-5.0) 12/23/17 05:15 CK-MB (CK-2) 2.13 ng/mL (0.5-3.6) 12/23/17 05:15 Troponin I 0.12 ng/ml (0.00-0.05) H 12/23/17 05:15 C-Reactive Protein 25.6 MG/DL (0.00-0.3) H 12/26/17 05:30 B-Natriuretic Peptide 6411.34 pg/ml (5-450) H 12/23/17 05:15 Total Protein 5.3 g/dl (6.4-8.2) L 12/29/17 05:30 Albumin 1.9 g/dl (3.4-5.0) L 12/29/17 05:30 Vitamin B12 2610 pg/ml (180-914) H 12/24/17 10:40 TSH 0.75 uIU/ml (0.358-3.74) 12/24/17 10:40 Free T4 1.24 ng/dl (0.76-1.46) 12/24/17 10:40 Cortisol AM Sample 16.5 ug/dL (.) 12/28/17 05:30 Cortisol PM Sample Cancelled 12/28/17 05:30 Urine Color Straw 12/22/17 15:00 Urine Appearance Clear 12/22/17 15:00 Urine pH 7.0 (5.0-8.0) 12/22/17 15:00 Ur Specific [place] 1.006 (1.001-1.035) 12/22/17 15:00 Urine Protein Negative (NEGATIVE) 12/22/17 15:00 Urine Glucose (UA) Negative (NEGATIVE) 12/22/17 15:00 Urine Ketones Negative (NEGATIVE) 12/22/17 15:00 Urine Blood 2+ (NEGATIVE) H 12/22/17 15:00 Urine Nitrite Negative (NEGATIVE) 12/22/17 15:00 Urine Bilirubin Negative (<2.0 mg/dL) 12/22/17 15:00 Urine Urobilinogen Negative mg/dL (0.2-1.0) 12/22/17 15:00 Ur Leukocyte Esterase Negative (NEGATIVE) 12/22/17 15:00 Urine WBC (Auto) 1 /hpf (3-5) 12/22/17 15:00 Urine RBC (Auto) 3 /hpf (0-3) 12/22/17 15:00 Ur Epithelial Cells Rare /HPF (FEW) 12/22/17 15:00 Stool Occult Blood Negative (NEGATIVE) 12/27/17 10:45 Vancomycin Pre-Dose 11.07 ug/ml (5.0-10.0) H 12/26/17 16:00 Assessment/Plan MPI 2013 (damir): no STs; no ischemia; nl EF Echo 09/08: nl LV size and function, EF 55-60%, mild AR, RA mildly enlarged, mild -mod TR, aorta atherosclerotic plaque present Echo 2014: nl LVSF; nl RV; mild-mod AI; mod TR; RVSP 40-50 Carotids 12/09: minimal athero, normal velocity. EKG sinus with PACs, LVH srinivas lower ext venous ultrasound no DVT 87F h/o DM, cellulitis, mult myeloma, afib and DVT on coumadin, hypothyroidism p /w fever Bilat pleural effusions - no h/o CHF, prior echo nl EF - IV lasix 40 mg daily ordered, received - remains euvolemic today, no dyspnea - cont lasix 40 mg PO daily Positive troponin - 0.06->0.11->0.12, mild elevation with flat trend, asymptomatic. not c/w acs. - EKG not concerning for ischemia fever, cellulitis - on abx - ID following Afib - in sr - continue coumadin per inr - metoprolol held, has had low BPs here - rate stable DVT - on warfarin HLD - cont statin DM - manage per primary team dc tele
[2017-12-30] MEDS: CEFTRIAXONE 2 GM in DEXTROSE 5%-WATER 100 ML IVPB SCH (10:31)
[2017-12-30] MEDS: FUROSEMIDE 40 MG TABLET (FP) PO SCH (10:32)
[2017-12-30] MEDS: POTASSIUM CHLORIDE TABS 10 MEQ TABLET.ER (FP) PO SCH (10:32)
[2017-12-30] MEDS: PANTOPRAZOLE 40 MG TABLET (FP) PO SCH (10:32)
[2017-12-30] MEDS: ENOXAPARIN NA (PORCINE) 40 MG/0.4 ML DISP.SYRIN SQ SCH (10:32)
[2017-12-30] MEDS: GABAPENTIN 300 MG CAPSULE (FP) PO SCH (10:32)
[2017-12-30] MEDS: FERROUS SO4 325 MG TABLET (FP) PO SCH (10:32)
[2017-12-30] MEDS: FLUTICASONE PROP 0.05% 16 GM NASAL SPRAY NS SCH (10:33)
[2017-12-30] MEDS: AMMONIUM LACTATE 12% LOTION 225 GM BOTTLE TP SCH (10:34)
--- NOTE | 2017-12-30 12:14 | PN ---
Progress Note, Physician - Current Medication List Current Medications: Active Medications Acetaminophen (Tylenol -) 650 mg PO Q4H PRN PRN Reason: PAIN OR FEVER Last Admin: 12/28/17 21:24 Dose: 650 mg Atorvastatin Calcium (Lipitor -) 40 mg PO HS [facility] Last Admin: 12/29/17 21:22 Dose: 40 mg Docusate Sodium (Colace -) 100 mg PO HS [facility] Last Admin: 12/29/17 21:22 Dose: 100 mg Enoxaparin Sodium (Lovenox -) 40 mg SQ DAILY [facility] Last Admin: 12/30/17 10:32 Dose: 40 mg Ferrous Sulfate (Feosol -) 325 mg PO DAILY [facility] Last Admin: 12/30/17 10:32 Dose: 325 mg Fluticasone Propionate (Flonase -) 2 spray NS DAILY [facility] Last Admin: 12/30/17 10:33 Dose: 2 spray Furosemide (Lasix -) 40 mg PO DAILY [facility] Last Admin: 12/30/17 10:32 Dose: 40 mg Gabapentin (Neurontin -) 600 mg PO DAILY [facility] Last Admin: 12/30/17 10:32 Dose: 600 mg Ceftriaxone Sodium 2 gm/ (Dextrose) 100 mls @ 200 mls/hr IVPB DAILY [facility]; Protocol Last Admin: 12/30/17 10:31 Dose: 200 mls/hr Lactic Acid (Lac-Hydrin 12) 1 applic TP DAILY [facility] Last Admin: 12/30/17 10:34 Dose: 1 applic Levothyroxine Sodium (Synthroid -) 75 mcg PO DAILY@0700 [facility] Last Admin: 12/30/17 06:49 Dose: 75 mcg Pantoprazole Sodium (Protonix -) 40 mg PO DAILY [facility] Last Admin: 12/30/17 10:32 Dose: 40 mg Potassium Chloride (K-Dur -) 40 meq PO DAILY [facility] Last Admin: 12/30/17 10:32 Dose: 40 meq Pramipexole Dihydrochloride (Mirapex -) 0.25 mg PO HS [facility] Last Admin: 12/29/17 21:22 Dose: 0.25 mg Senna (Senna -) 1 tab PO HS [facility] Last Admin: 12/29/17 21:22 Dose: 1 tab Silver Sulfadiazine (Silvadene -) 1 applic TP DAILY [facility] Last Admin: 12/29/17 09:17 Dose: 1 applic Warfarin Sodium (Coumadin -) 4 mg PO DAILY@1800 [facility] Last Admin: 12/29/17 17:42 Dose: 4 mg - Objective Vital Signs: Vital Signs Temperature 99.6 F 12/30/17 08:55 Pulse Rate 70 12/30/17 08:55 Respiratory Rate 20 12/30/17 08:55 Blood Pressure 124/52 12/30/17 08:55 O2 Sat by Pulse Oximetry (%) 97 12/29/17 21:00 Cardiovascular: Yes: S1, S2 Respiratory: Yes: Regular, CTA Bilaterally Gastrointestinal: Yes: Normal Bowel Sounds, Soft Labs: CBC, BMP 12/29/17 05:30 12/29/17 05:30 INR, PTT INR 1.94 (0.83-1.09) H 12/29/17 05:30 Problem List - Problems (1) Bullous disorder Code(s): L13.9 - BULLOUS DISORDER, UNSPECIFIED (2) Cellulitis Assessment/Plan: -IV ABX--changed to rocephin -FOLLOW LABS -ID consult noted -acetaminophen 650 mg po Q6H PRN for fever >100.0 F or Pain of 1-3 Code(s): L03.90 - CELLULITIS, UNSPECIFIED Qualifiers: Site of cellulitis: extremity Site of cellulitis of extremity: lower extremity Laterality: right Qualified Code(s): L03.115 - Cellulitis of right lower limb (3) Fever Assessment/Plan: -Resolved CULTURES Microbiology 12/26/17 10:00 Ulcer Gram Stain - Final 12/22/17 13:48 Blood - Peripheral Venous Blood Culture - Preliminary NO GROWTH OBTAINED AFTER 96 HOURS, INCUBATION TO CONTINUE FOR 1 DAYS. 12/22/17 13:48 Blood - Peripheral Venous Blood Culture - Preliminary NO GROWTH OBTAINED AFTER 96 HOURS, INCUBATION TO CONTINUE FOR 1 DAYS. 12/22/17 15:00 Urine - Urine Clean Catch Urine Culture - Final NO GROWTH OBTAINED -IV ABX -ID CONSULT Code(s): R50.9 - FEVER, UNSPECIFIED (4) Leg pain Assessment/Plan: -DUPLEX NEG -SURGICAL CONSULT--noted and discussed -ABX Code(s): M79.606 - PAIN IN LEG, UNSPECIFIED Qualifiers: Laterality: left Qualified Code(s): M79.605 - Pain in left leg (5) Multiple myeloma Assessment/Plan: -Seen by Oncology Code(s): C90.00 - MULTIPLE MYELOMA NOT HAVING ACHIEVED REMISSION (6) Elevated INR Code(s): R79.1 - ABNORMAL COAGULATION PROFILE (7) Afib Assessment/Plan: -chronic -controlled -Warfarin restarted -check daily INR's Code(s): I48.91 - UNSPECIFIED ATRIAL FIBRILLATION (8) CHF (congestive heart failure) Assessment/Plan: -w pleural effusions -now on po lasix Code(s): I50.9 - HEART FAILURE, UNSPECIFIED
[2017-12-30] MEDS: SILVER SULFADIAZINE 1% TOP CREAM 400 GM JAR TP SCH (13:35)
[2017-12-30] MEDS: WARFARIN NA 2 MG TABLET (UD) PO SCH (17:28)
[2017-12-30] MEDS: ACETAMINOPHEN 325 MG TABLET (FP) PO PRN (17:29)
[2017-12-30] MEDS: ATORVASTATIN CA 40 MG TABLET (FP) PO SCH (21:43)
[2017-12-30] MEDS: PRAMIPEXOLE DIHYDROCHLORIDE 0.25 MG TABLET PO SCH (21:44)
[2017-12-30] MEDS: SENNOSIDES 8.6MG TABLET (FP) PO SCH (21:44)
[2017-12-30] MEDS: DOCUSATE SODIUM 100 MG CAPSULE (FP) PO SCH (21:45)
--- NOTE | 2017-12-30 23:10 | PN ---
Progress Note (short form) - Note Progress Note: Patient seen and examined Low grade fevers Reports that the leg feels better VSS Cor: RSR, No murmurs, No gallops Lungs: Clear to P&A Abd: Soft, Normal bowel sounds, No organomegaly Ext: RLE edema Labs/Meds reviewed A/P 87 yo female pmh of DM type 2, cellulitis , multiple myeloma (on chemotherapy) DVT (on Coumadin) hypothyroid (thyroid removed) presents to the ED from [facility] for fevers., rt. ankle blistering lesion/cellulitis On rocephin holding revlimid/dexmethasone at this time on lovenox 40mg/ being bridged to coumadin titrate inr closely while on antibiotics
[2017-12-31] MEDS: ACETAMINOPHEN 325 MG TABLET (FP) PO PRN ×3 (01:20→22:15)
[2017-12-31 07:00] LABS: INR 3.19 (0.83-1.09); PROTHROMBIN TIME (PATIENT) 36.1 SEC (9.7-13.0)
[2017-12-31 07:41] LABS: CHLORIDE 102 mmol/L (98-107); POTASSIUM 3.3 mmol/L (3.5-5.1); SODIUM 138 mmol/L (136-145)
[2017-12-31] MEDS: LEVOTHYROXINE NA 75 MCG TABLET (FP) PO SCH ×2 (07:53→08:12)
[2017-12-31 07:59] LABS: ANION GAP 10 MMOL/L (8-16); BLOOD UREA NITROGEN 13 mg/dL (7-18); CALCIUM 7.9 mg/dL (8.5-10.1); CO2 26 mmol/L (21-32); CREATININE 1.1 mg/dL (0.55-1.02); GLUCOSE,RANDOM 66 mg/dL (74-106)
[2017-12-31] MEDS ORDERED: DEXTROSE 5%-WATER 100 ML IVPB ONE (09:02)
[2017-12-31] MEDS: FERROUS SO4 325 MG TABLET (FP) PO SCH (09:07)
[2017-12-31] MEDS: GABAPENTIN 300 MG CAPSULE (FP) PO SCH (09:07)
[2017-12-31] MEDS: ENOXAPARIN NA (PORCINE) 40 MG/0.4 ML DISP.SYRIN SQ SCH (09:08)
[2017-12-31] MEDS: FUROSEMIDE 40 MG TABLET (FP) PO SCH (09:08)
[2017-12-31] MEDS: POTASSIUM CHLORIDE TABS 10 MEQ TABLET.ER (FP) PO SCH (09:08)
[2017-12-31] MEDS: CEFTRIAXONE 2 GM in DEXTROSE 5%-WATER 100 ML IVPB SCH (09:08)
[2017-12-31] MEDS: SILVER SULFADIAZINE 1% TOP CREAM 400 GM JAR TP SCH (09:09)
[2017-12-31] MEDS: PANTOPRAZOLE 40 MG TABLET (FP) PO SCH (09:09)
[2017-12-31] MEDS: FLUTICASONE PROP 0.05% 16 GM NASAL SPRAY NS SCH (09:20)
[2017-12-31] MEDS: AMMONIUM LACTATE 12% LOTION 225 GM BOTTLE TP SCH (09:21)
--- NOTE | 2017-12-31 12:43 | PN ---
Progress Note, Physician - Current Medication List Current Medications: Active Medications Acetaminophen (Tylenol -) 650 mg PO Q4H PRN PRN Reason: PAIN OR FEVER Last Admin: 12/31/17 09:37 Dose: 650 mg Atorvastatin Calcium (Lipitor -) 40 mg PO HS [facility] Docusate Sodium (Colace -) 100 mg PO HS [facility] Enoxaparin Sodium (Lovenox -) 40 mg SQ DAILY [facility] Last Admin: 12/31/17 09:08 Dose: 40 mg Ferrous Sulfate (Feosol -) 325 mg PO DAILY [facility] Last Admin: 12/31/17 09:07 Dose: 325 mg Fluticasone Propionate (Flonase -) 2 spray NS DAILY [facility] Last Admin: 12/31/17 09:20 Dose: 2 spray Furosemide (Lasix -) 40 mg PO DAILY [facility] Last Admin: 12/31/17 09:08 Dose: 40 mg Gabapentin (Neurontin -) 600 mg PO DAILY [facility] Last Admin: 12/31/17 09:07 Dose: 600 mg Ceftriaxone Sodium 2 gm/ (Dextrose) 100 mls @ 200 mls/hr IVPB DAILY [facility]; Protocol Last Admin: 12/31/17 09:08 Dose: 200 mls/hr Lactic Acid (Lac-Hydrin 12) 1 applic TP DAILY [facility] Last Admin: 12/31/17 09:21 Dose: 1 applic Levothyroxine Sodium (Synthroid -) 75 mcg PO DAILY@0700 [facility] Last Admin: 12/31/17 07:53 Dose: 75 mcg Pantoprazole Sodium (Protonix -) 40 mg PO DAILY [facility] Last Admin: 12/31/17 09:09 Dose: 40 mg Potassium Chloride (K-Dur -) 40 meq PO DAILY [facility] Last Admin: 12/31/17 09:08 Dose: 40 meq Pramipexole Dihydrochloride (Mirapex -) 0.25 mg PO HS [facility] Senna (Senna -) 1 tab PO HS [facility] Silver Sulfadiazine (Silvadene -) 1 applic TP DAILY [facility] Last Admin: 12/31/17 09:09 Dose: 1 applic Warfarin Sodium (Coumadin -) 4 mg PO DAILY@1800 [facility] Last Admin: 12/30/17 17:28 Dose: 4 mg - Objective Vital Signs: Vital Signs Temperature 98.6 F 12/31/17 09:17 Pulse Rate 66 12/31/17 09:17 Respiratory Rate 18 12/31/17 09:17 Blood Pressure 122/52 12/31/17 09:17 O2 Sat by Pulse Oximetry (%) 97 12/30/17 21:00 Cardiovascular: Yes: S1, S2 Respiratory: Yes: Regular, CTA Bilaterally Gastrointestinal: Yes: Normal Bowel Sounds, Soft Labs: CBC, BMP 12/29/17 05:30 12/31/17 05:30 INR, PTT INR 3.19 (0.83-1.09) H 12/31/17 05:30 Problem List - Problems (1) Cellulitis Assessment/Plan: -IV ABX--changed to rocephin -FOLLOW LABS -ID consult noted -acetaminophen 650 mg po Q6H PRN for fever >100.0 F or Pain of 1-3 Code(s): L03.90 - CELLULITIS, UNSPECIFIED Qualifiers: Site of cellulitis: extremity Site of cellulitis of extremity: lower extremity Laterality: right Qualified Code(s): L03.115 - Cellulitis of right lower limb (2) Fever Assessment/Plan: -Resolved CULTURES Microbiology 12/26/17 10:00 Ulcer Gram Stain - Final 12/22/17 13:48 Blood - Peripheral Venous Blood Culture - Preliminary NO GROWTH OBTAINED AFTER 96 HOURS, INCUBATION TO CONTINUE FOR 1 DAYS. 12/22/17 13:48 Blood - Peripheral Venous Blood Culture - Preliminary NO GROWTH OBTAINED AFTER 96 HOURS, INCUBATION TO CONTINUE FOR 1 DAYS. 12/22/17 15:00 Urine - Urine Clean Catch Urine Culture - Final NO GROWTH OBTAINED -IV ABX -ID CONSULT Code(s): R50.9 - FEVER, UNSPECIFIED (3) Leg pain Assessment/Plan: -DUPLEX NEG -SURGICAL CONSULT--noted and discussed -ABX Code(s): M79.606 - PAIN IN LEG, UNSPECIFIED Qualifiers: Laterality: left Qualified Code(s): M79.605 - Pain in left leg (4) Multiple myeloma Assessment/Plan: -Seen by Oncology Code(s): C90.00 - MULTIPLE MYELOMA NOT HAVING ACHIEVED REMISSION (5) Elevated INR Assessment/Plan: -2/2 to abx -warfarin on hold -Vit K 5 mg po once given -daily INR's -observe for any overt bleeding Code(s): R79.1 - ABNORMAL COAGULATION PROFILE (6) Afib Assessment/Plan: -chronic -controlled -Warfarin restarted -check daily INR's Code(s): I48.91 - UNSPECIFIED ATRIAL FIBRILLATION (7) CHF (congestive heart failure) Assessment/Plan: -w pleural effusions -now on po lasix -replace k Code(s): I50.9 - HEART FAILURE, UNSPECIFIED
[2017-12-31] MEDS ORDERED: POTASSIUM CHLORIDE TABS 20 MEQ TABLET.ER (FP) PO ONE (12:45)
--- NOTE | 2017-12-31 13:03 | CONSULT ---
Consult - text type - Consultation Consultation Note: Patient seen and examined One low grade fever yesterday Reports that the leg feels better VSS Cor: RSR, No murmurs, No gallops Lungs: Clear to P&A Abd: Soft, Normal bowel sounds, No organomegaly Ext: RLE edema Labs/Meds reviewed A/P 87 yo female pmh of DM type 2, cellulitis , multiple myeloma (on chemotherapy) DVT (on Coumadin) hypothyroid (thyroid removed) presents to the ED from [facility] for fevers., rt. ankle blistering lesion/cellulitis. On rocephin holding revlimid/dexmethasone at this time she is therapeutic and I have decreased the coumadin to 2 mg po q day Lovenox has been stopped titrate inr closely while on antibiotics
[2017-12-31] MEDS: WARFARIN NA 2 MG TABLET (UD) PO SCH (17:24)
--- NOTE | 2017-12-31 21:15 | HOSP ---
Physical Examination Vital Signs: Vital Signs Temperature 101.2 F H 12/31/17 20:26 Pulse Rate 71 12/31/17 20:26 Respiratory Rate 20 12/31/17 20:26 Blood Pressure 124/76 12/31/17 20:26 O2 Sat by Pulse Oximetry (%) 97 12/31/17 20:30 Findings/Remarks: Medical night coverage for Dr. Rowe Called by RN that patient has temperature of 101.2. Chest X-ray today with no infiltrates Will repeat blood cultures, UA, urine culture. Continue current treatment, Ceftriaxone, and follow results from above testing. Labs: CBC, BMP 12/29/17 05:30 12/31/17 05:30
[2017-12-31] MEDS: ATORVASTATIN CA 40 MG TABLET (FP) PO SCH (22:15)
[2017-12-31] MEDS: DOCUSATE SODIUM 100 MG CAPSULE (FP) PO SCH (22:15)
[2017-12-31] MEDS: PRAMIPEXOLE DIHYDROCHLORIDE 0.25 MG TABLET PO SCH (22:15)
[2017-12-31] MEDS: SENNOSIDES 8.6MG TABLET (FP) PO SCH (22:15)
[2018-01-01] MEDS: LEVOTHYROXINE NA 75 MCG TABLET (FP) PO SCH (06:26)
[2018-01-01] MEDS ORDERED: LEVOTHYROXINE NA 75 MCG TABLET (FP) PO SCH (07:00)
[2018-01-01 07:19] LABS: HEMATOCRIT 29.2 % (32.4-45.2); HEMOGLOBIN 9.6 GM/dL (10.7-15.3); MCH 28.8 pg (25.7-33.7); MEAN CELL VOLUME 87.4 fl (80-96); MEAN PLT VOLUME 8.2 fl (7.5-11.1); PLATELET COUNT 306 K/MM3 (134-434); RBC 3.34 M/mm3 (3.60-5.2); RDW 20.1 % (11.6-15.6); WHITE BLOOD COUNT 9.8 K/mm3 (4.0-10.0)
[2018-01-01 07:33] LABS: INR 2.48 (0.83-1.09)
[2018-01-01 08:34] LABS: ANION GAP 10 MMOL/L (8-16); BLOOD UREA NITROGEN 14 mg/dL (7-18); CALCIUM 8.4 mg/dL (8.5-10.1); CHLORIDE 106 mmol/L (98-107); CO2 26 mmol/L (21-32); GLUCOSE,RANDOM 87 mg/dL (74-106); SODIUM 142 mmol/L (136-145)
[2018-01-01 08:38] LABS: ALK PHOS 133 U/L (45-117); BILIRUBIN,TOTAL 0.6 mg/dL (0.2-1.0); SGOT/AST 73 U/L (15-37); SGPT/ALT 77 U/L (12-78); TOT PROT 5.3 g/dl (6.4-8.2)
[2018-01-01 09:25] LABS: URINE APPEARANCE CLEAR; URINE BILIRUBIN NEGATIVE (<2.0 mg/dL); URINE COLOR YELLOW; URINE GLUCOSE (UA) NEGATIVE (NEGATIVE); URINE KETONE NEGATIVE (NEGATIVE); URINE LEUK ESTERASE TRACE (NEGATIVE); URINE NITRITE NEGATIVE (NEGATIVE); URINE PROTEIN NEGATIVE (NEGATIVE); URINE UROBILINOGEN NEGATIVE mg/dL (0.2-1.0)
[2018-01-01 09:29] LABS: EPI CELLS RARE /HPF (FEW); YEAST RARE
[2018-01-01] MEDS ORDERED: DEXTROSE 5%-WATER 100 ML IVPB ONE (09:57)
[2018-01-01] MEDS: CEFTRIAXONE 2 GM in DEXTROSE 5%-WATER 100 ML IVPB SCH (10:06)
[2018-01-01] MEDS: POTASSIUM CHLORIDE TABS 10 MEQ TABLET.ER (FP) PO SCH (10:06)
[2018-01-01] MEDS: FERROUS SO4 325 MG TABLET (FP) PO SCH (10:07)
[2018-01-01] MEDS: PANTOPRAZOLE 40 MG TABLET (FP) PO SCH (10:07)
[2018-01-01] MEDS: FUROSEMIDE 40 MG TABLET (FP) PO SCH (10:07)
[2018-01-01] MEDS: GABAPENTIN 300 MG CAPSULE (FP) PO SCH (10:07)
[2018-01-01] MEDS: FLUTICASONE PROP 0.05% 16 GM NASAL SPRAY NS SCH (10:08)
[2018-01-01] MEDS: SILVER SULFADIAZINE 1% TOP CREAM 400 GM JAR TP SCH (10:09)
[2018-01-01] MEDS: AMMONIUM LACTATE 12% LOTION 225 GM BOTTLE TP SCH (10:09)
--- NOTE | 2018-01-01 12:23 | PN ---
Progress Note (short form) - Note Progress Note: Patient seen and examined No fevers She c/o of tenderness in her L. axilla No swelling or erythema noted at this time Monitor for now. Reports that the leg feels better VSS Cor: RSR, No murmurs, No gallops Lungs: Clear to P&A Abd: Soft, Normal bowel sounds, No organomegaly Ext: RLE edema Labs/Meds reviewed A/P 87 yo female pmh of DM type 2, cellulitis , multiple myeloma (on chemotherapy) DVT (on Coumadin) hypothyroid (thyroid removed) presents to the ED from [facility] for fevers., rt. ankle blistering lesion/cellulitis. On rocephin holding revlimid/dexmethasone at this time she is therapeutic and I have decreased the coumadin to 2 mg po q day Lovenox has been stopped
--- NOTE | 2018-01-01 15:03 | PN ---
Progress Note, Physician - Current Medication List Current Medications: Active Medications Acetaminophen (Tylenol -) 650 mg PO Q4H PRN PRN Reason: PAIN OR FEVER Last Admin: 12/31/17 22:15 Dose: 650 mg Atorvastatin Calcium (Lipitor -) 40 mg PO HS [facility] Last Admin: 12/31/17 22:15 Dose: 40 mg Docusate Sodium (Colace -) 100 mg PO HS [facility] Last Admin: 12/31/17 22:15 Dose: 100 mg Ferrous Sulfate (Feosol -) 325 mg PO DAILY [facility] Last Admin: 01/01/18 10:07 Dose: 325 mg Fluticasone Propionate (Flonase -) 2 spray NS DAILY [facility] Last Admin: 01/01/18 10:08 Dose: 2 spray Furosemide (Lasix -) 40 mg PO DAILY [facility] Last Admin: 01/01/18 10:07 Dose: 40 mg Gabapentin (Neurontin -) 600 mg PO DAILY [facility] Last Admin: 01/01/18 10:07 Dose: 600 mg Ceftriaxone Sodium 2 gm/ (Dextrose) 100 mls @ 200 mls/hr IVPB DAILY [facility]; Protocol Last Admin: 01/01/18 10:06 Dose: 200 mls/hr Lactic Acid (Lac-Hydrin 12) 1 applic TP DAILY [facility] Last Admin: 01/01/18 10:09 Dose: 1 applic Levothyroxine Sodium (Synthroid -) 75 mcg PO DAILY@0700 [facility] Last Admin: 01/01/18 06:26 Dose: 75 mcg Pantoprazole Sodium (Protonix -) 40 mg PO DAILY [facility] Last Admin: 01/01/18 10:07 Dose: 40 mg Potassium Chloride (K-Dur -) 40 meq PO DAILY [facility] Last Admin: 01/01/18 10:06 Dose: 40 meq Pramipexole Dihydrochloride (Mirapex -) 0.25 mg PO HS [facility] Last Admin: 12/31/17 22:15 Dose: 0.25 mg Senna (Senna -) 1 tab PO HS [facility] Last Admin: 12/31/17 22:15 Dose: 1 tab Silver Sulfadiazine (Silvadene -) 1 applic TP DAILY [facility] Last Admin: 01/01/18 10:09 Dose: 1 applic Warfarin Sodium (Coumadin -) 2 mg PO DAILY@1800 [facility] Last Admin: 12/31/17 17:24 Dose: Not Given - Objective Vital Signs: Vital Signs Temperature 99.0 F 01/01/18 09:22 Pulse Rate 60 01/01/18 09:22 Respiratory Rate 18 01/01/18 09:22 Blood Pressure 123/57 01/01/18 09:22 O2 Sat by Pulse Oximetry (%) 97 12/31/17 20:30 Cardiovascular: Yes: S1, S2 Respiratory: Yes: Regular, CTA Bilaterally Gastrointestinal: Yes: Normal Bowel Sounds, Soft Extremities: Yes: Erythema Integumentary: Yes: Erythema Wound/Incision: Yes: Reddened Labs: CBC, BMP 01/01/18 06:00 01/01/18 06:00 INR, PTT INR 2.48 (0.83-1.09) H 01/01/18 06:00 Problem List - Problems (1) Cellulitis Assessment/Plan: -IV ABX--changed to rocephin -FOLLOW LABS -ID consult noted--FOLLOW UP--RECURRENT FEVER -acetaminophen 650 mg po Q6H PRN for fever >100.0 F or Pain of 1-3 Code(s): L03.90 - CELLULITIS, UNSPECIFIED Qualifiers: Site of cellulitis: extremity Site of cellulitis of extremity: lower extremity Laterality: right Qualified Code(s): L03.115 - Cellulitis of right lower limb (2) Fever Assessment/Plan: -RECURRENT--101 -REPEAT CULTURE -IV ABX -ID CONSULT--FOLLOW UP Laboratory Tests 12/28/17 12/29/17 01/01/18 05:30 05:30 06:00 WBC 7.5 9.1 9.8 Code(s): R50.9 - FEVER, UNSPECIFIED (3) Leg pain Assessment/Plan: -DUPLEX NEG -SURGICAL CONSULT--noted and discussed -ABX Code(s): M79.606 - PAIN IN LEG, UNSPECIFIED Qualifiers: Laterality: left Qualified Code(s): M79.605 - Pain in left leg (4) Multiple myeloma Assessment/Plan: -Seen by Oncology Code(s): C90.00 - MULTIPLE MYELOMA NOT HAVING ACHIEVED REMISSION (5) Afib Assessment/Plan: -chronic -controlled -Warfarin restarted -check daily INR's Laboratory Tests 01/01/18 06:00 INR 2.48 H Code(s): I48.91 - UNSPECIFIED ATRIAL FIBRILLATION (6) CHF (congestive heart failure) Assessment/Plan: -w pleural effusions -now on po lasix -replace k Code(s): I50.9 - HEART FAILURE, UNSPECIFIED (7) Axillary mass Assessment/Plan: -HAD RECENT MAMMO -CT SCAN
[2018-01-01] MEDS ORDERED: WARFARIN NA 2.5 MG TABLET (FP) PO SCH (18:00)
[2018-01-01] MEDS: WARFARIN NA 2 MG TABLET (UD) PO SCH (18:06)
[2018-01-01] MEDS ORDERED: PT OWN MED DRAWER 7, Y5N ONE (21:03)
[2018-01-01] MEDS: SENNOSIDES 8.6MG TABLET (FP) PO SCH (21:34)
[2018-01-01] MEDS: ACETAMINOPHEN 325 MG TABLET (FP) PO PRN (21:34)
[2018-01-01] MEDS: DOCUSATE SODIUM 100 MG CAPSULE (FP) PO SCH (21:34)
[2018-01-01] MEDS: PRAMIPEXOLE DIHYDROCHLORIDE 0.25 MG TABLET PO SCH (21:34)
[2018-01-01] MEDS: ATORVASTATIN CA 40 MG TABLET (FP) PO SCH (21:34)
[2018-01-02] MEDS: LEVOTHYROXINE NA 75 MCG TABLET (FP) PO SCH (06:32)
[2018-01-02 07:35] LABS: BASO % 0.9 % (0-2.0); EOS % 0.3 % (0-4.5); HEMATOCRIT 30.3 % (32.4-45.2); HEMOGLOBIN 10.1 GM/dL (10.7-15.3); LYMPH % 5.5 % (8-40); MCH 28.9 pg (25.7-33.7); MCHC 33.3 g/dl (32.0-36.0); MEAN CELL VOLUME 86.8 fl (80-96); MEAN PLT VOLUME 7.9 fl (7.5-11.1); MONO % 6.9 % (3.8-10.2); NEUT % 86.4 % (42.8-82.8); PLATELET COUNT 326 K/MM3 (134-434); RBC 3.49 M/mm3 (3.60-5.2); RDW 20.8 % (11.6-15.6); WHITE BLOOD COUNT 10.2 K/mm3 (4.0-10.0)
[2018-01-02 08:01] LABS: CALCIUM 8.4 mg/dL (8.5-10.1); CHLORIDE 103 mmol/L (98-107); POTASSIUM 4.8 mmol/L (3.5-5.1); SODIUM 140 mmol/L (136-145)
[2018-01-02 08:14] LABS: ALBUMIN 2.1 g/dl (3.4-5.0); ALK PHOS 136 U/L (45-117); ANION GAP 11 MMOL/L (8-16); BILIRUBIN,TOTAL 0.5 mg/dL (0.2-1.0); BLOOD UREA NITROGEN 14 mg/dL (7-18); CO2 26 mmol/L (21-32); GLUCOSE,RANDOM 98 mg/dL (74-106); SGOT/AST 76 U/L (15-37); SGPT/ALT 83 U/L (12-78); TOT PROT 5.8 g/dl (6.4-8.2)
[2018-01-02] MEDS ORDERED: DEXTROSE 5%-WATER 100 ML IVPB ONE (09:27)
[2018-01-02] MEDS: CEFTRIAXONE 2 GM in DEXTROSE 5%-WATER 100 ML IVPB SCH (09:50)
[2018-01-02] MEDS: FLUTICASONE PROP 0.05% 16 GM NASAL SPRAY NS SCH (09:51)
[2018-01-02] MEDS: POTASSIUM CHLORIDE TABS 10 MEQ TABLET.ER (FP) PO SCH (09:51)
[2018-01-02] MEDS: ACETAMINOPHEN 325 MG TABLET (FP) PO PRN (09:51)
[2018-01-02] MEDS: PANTOPRAZOLE 40 MG TABLET (FP) PO SCH (09:52)
[2018-01-02] MEDS: FERROUS SO4 325 MG TABLET (FP) PO SCH (09:52)
[2018-01-02] MEDS: GABAPENTIN 300 MG CAPSULE (FP) PO SCH (09:53)
[2018-01-02] MEDS: SILVER SULFADIAZINE 1% TOP CREAM 400 GM JAR TP SCH (09:53)
[2018-01-02] MEDS: AMMONIUM LACTATE 12% LOTION 225 GM BOTTLE TP SCH (09:53)
[2018-01-02] MEDS: FUROSEMIDE 40 MG TABLET (FP) PO SCH (09:53)
[2018-01-02 11:05] LABS: ANISOCYTOSIS 1+; MACROCYTOSIS 1+
[2018-01-02 11:21] LABS: ERYTHROCYTE SEDIMENTATION RATE 107 mm/hr (0-30)
[2018-01-02 14:46] VITALS: BMI 23.3
--- NOTE | 2018-01-02 15:14 | PN ---
Progress Note, Physician History of Present Illness: Temp elevation noted Temps down C/O R leg pain Unable to bear wt Afebrile WBC 10.2 CT chest shows hematoma R pectoralis major - Current Medication List Current Medications: Active Medications Acetaminophen (Tylenol -) 650 mg PO Q4H PRN PRN Reason: PAIN OR FEVER Last Admin: 01/02/18 09:51 Dose: 650 mg Atorvastatin Calcium (Lipitor -) 40 mg PO HS [facility] Last Admin: 01/01/18 21:34 Dose: 40 mg Docusate Sodium (Colace -) 100 mg PO HS [facility] Last Admin: 01/01/18 21:34 Dose: 100 mg Ferrous Sulfate (Feosol -) 325 mg PO DAILY [facility] Last Admin: 01/02/18 09:52 Dose: 325 mg Fluticasone Propionate (Flonase -) 2 spray NS DAILY [facility] Last Admin: 01/02/18 09:51 Dose: 2 spray Furosemide (Lasix -) 40 mg PO DAILY [facility] Last Admin: 01/02/18 09:53 Dose: 40 mg Gabapentin (Neurontin -) 600 mg PO DAILY [facility] Last Admin: 01/02/18 09:53 Dose: 600 mg Ceftriaxone Sodium 2 gm/ (Dextrose) 100 mls @ 200 mls/hr IVPB DAILY [facility]; Protocol Last Admin: 01/02/18 09:50 Dose: 200 mls/hr Lactic Acid (Lac-Hydrin 12) 1 applic TP DAILY [facility] Last Admin: 01/02/18 09:53 Dose: 1 applic Levothyroxine Sodium (Synthroid -) 75 mcg PO DAILY@0700 [facility] Last Admin: 01/02/18 06:32 Dose: 75 mcg Pantoprazole Sodium (Protonix -) 40 mg PO DAILY [facility] Last Admin: 01/02/18 09:52 Dose: 40 mg Potassium Chloride (K-Dur -) 40 meq PO DAILY [facility] Last Admin: 01/02/18 09:51 Dose: 40 meq Pramipexole Dihydrochloride (Mirapex -) 0.25 mg PO HS [facility] Last Admin: 01/01/18 21:34 Dose: 0.25 mg Senna (Senna -) 1 tab PO HS [facility] Last Admin: 01/01/18 21:34 Dose: 1 tab Silver Sulfadiazine (Silvadene -) 1 applic TP DAILY [facility] Last Admin: 01/02/18 09:53 Dose: 1 applic Warfarin Sodium (Coumadin -) 2 mg PO DAILY@1800 [facility] Last Admin: 01/01/18 18:06 Dose: 2 mg - Objective Vital Signs: Vital Signs Temperature 98.1 F 01/02/18 14:43 Pulse Rate 68 01/02/18 14:43 Respiratory Rate 20 01/02/18 14:43 Blood Pressure 110/57 01/02/18 14:43 O2 Sat by Pulse Oximetry (%) 95 01/02/18 09:00 Constitutional: Yes: No Distress Eyes: Yes: Conjunctiva Clear Cardiovascular: Yes: Regular Rate and Rhythm, S1, S2 Respiratory: Yes: CTA Bilaterally Gastrointestinal: Yes: Normal Bowel Sounds, Soft. No: Tenderness Musculoskeletal: Yes: Other (+ non tender swelling R pectoralis muscle No erythema/ warmth) Extremities: Yes: Other (+ R LE ulcer + surrounding erythema/ warmth) Labs: CBC, BMP 01/02/18 06:30 01/02/18 06:30 INR, PTT INR 2.48 (0.83-1.09) H 01/01/18 06:00 Assessment/Plan Cellulitis R LE Non-healing leg ulcer Multiple myeloma Diabetes mellitus Continue ceftriaxone Vascular follow up
--- NOTE | 2018-01-02 15:46 | PN ---
Progress Note (short form) - Note Progress Note: s: no cp sob palps dizzy o: Vital Signs Period Temp Pulse Resp BP Sys/Ferrer Pulse Ox Last 24 Hr 98.1 F-99.8 F 61-74 18-20 106-126/51-63 95-95 Constitutional: Yes: No Distress, Calm Eyes: Yes: Conjunctiva Clear Respiratory: Yes: Regular, CTA Bilaterally Gastrointestinal: Yes: Normal Bowel Sounds, Soft Cardiovascular: Yes: Regular Rate and Rhythm Heart Sounds: Yes: S1, S2 Murmur: Yes: Systolic Murmur Extremities: Yes: Other (L ankle/foot erythema, tender to palpation) Edema: Yes no jaundice diaphoresis Neurological: Yes: Alert, Oriented Current Medications Acetaminophen (Tylenol -) 650 mg PO Q4H PRN PRN Reason: PAIN OR FEVER Last Admin: 01/02/18 09:51 Dose: 650 mg Atorvastatin Calcium (Lipitor -) 40 mg PO HS [facility] Last Admin: 01/01/18 21:34 Dose: 40 mg Docusate Sodium (Colace -) 100 mg PO [facility] Last Admin: 01/01/18 21:34 Dose: 100 mg Ferrous Sulfate (Feosol -) 325 mg PO DAILY [facility] Last Admin: 01/02/18 09:52 Dose: 325 mg Fluticasone Propionate (Flonase -) 2 spray NS DAILY [facility] Last Admin: 01/02/18 09:51 Dose: 2 spray Furosemide (Lasix -) 40 mg PO DAILY [facility] Last Admin: 01/02/18 09:53 Dose: 40 mg Gabapentin (Neurontin -) 600 mg PO DAILY [facility] Last Admin: 01/02/18 09:53 Dose: 600 mg Ceftriaxone Sodium 2 gm/ (Dextrose) 100 mls @ 200 mls/hr IVPB DAILY [facility]; Protocol Last Admin: 01/02/18 09:50 Dose: 200 mls/hr Lactic Acid (Lac-Hydrin 12) 1 applic TP DAILY [facility] Last Admin: 01/02/18 09:53 Dose: 1 applic Levothyroxine Sodium (Synthroid -) 75 mcg PO DAILY@0700 [facility] Last Admin: 01/02/18 06:32 Dose: 75 mcg Pantoprazole Sodium (Protonix -) 40 mg PO DAILY [facility] Last Admin: 01/02/18 09:52 Dose: 40 mg Potassium Chloride (K-Dur -) 40 meq PO DAILY [facility] Last Admin: 01/02/18 09:51 Dose: 40 meq Pramipexole Dihydrochloride (Mirapex -) 0.25 mg PO HS [facility] Last Admin: 01/01/18 21:34 Dose: 0.25 mg Senna (Senna -) 1 tab PO HS [facility] Last Admin: 01/01/18 21:34 Dose: 1 tab Silver Sulfadiazine (Silvadene -) 1 applic TP DAILY [facility] Last Admin: 01/02/18 09:53 Dose: 1 applic Warfarin Sodium (Coumadin -) 2 mg PO DAILY@1800 [facility] Last Admin: 01/01/18 18:06 Dose: 2 mg Assessment/Plan MPI 2013 (damir): no STs; no ischemia; nl EF Echo 09/08: nl LV size and function, EF 55-60%, mild AR, RA mildly enlarged, mild -mod TR, aorta atherosclerotic plaque present Echo 2014: nl LVSF; nl RV; mild-mod AI; mod TR; RVSP 40-50 Carotids 12/09: minimal athero, normal velocity. EKG sinus with PACs, LVH srinivas lower ext venous ultrasound no DVT 87F h/o DM, cellulitis, mult myeloma, afib and DVT on coumadin, hypothyroidism p /w fever Bilat pleural effusions - no h/o CHF, prior echo nl EF - received IV lasix 12/27, 12/28 - remains euvolemic, no dyspnea - cont lasix 40 mg PO daily Positive troponin - 0.06->0.11->0.12, mild elevation with flat trend, asymptomatic. not c/w acs. - EKG not concerning for ischemia - stable from cardiac perspective fever, cellulitis - on abx - ID following Afib - in sr - continue coumadin per inr - metoprolol held, has had low BPs here - rate stable DVT - on warfarin HLD - cont statin DM - manage per primary team
[2018-01-02 17:04] LABS: INR 2.63 (0.83-1.09); PROTHROMBIN TIME (PATIENT) 29.7 SEC (9.7-13.0)
--- NOTE | 2018-01-02 17:23 | PN ---
Progress Note, Physician Chief Complaint: EVENTS REVIEWED PATIENT WITH RLL EXTREMITY NON-HEALING ULCER NO FEVERS TODAY - Current Medication List Current Medications: Active Medications Acetaminophen (Tylenol -) 650 mg PO Q4H PRN PRN Reason: PAIN OR FEVER Last Admin: 01/02/18 09:51 Dose: 650 mg Atorvastatin Calcium (Lipitor -) 40 mg PO HS [facility] Last Admin: 01/01/18 21:34 Dose: 40 mg Docusate Sodium (Colace -) 100 mg PO HS [facility] Last Admin: 01/01/18 21:34 Dose: 100 mg Ferrous Sulfate (Feosol -) 325 mg PO DAILY [facility] Last Admin: 01/02/18 09:52 Dose: 325 mg Fluticasone Propionate (Flonase -) 2 spray NS DAILY [facility] Last Admin: 01/02/18 09:51 Dose: 2 spray Furosemide (Lasix -) 40 mg PO DAILY [facility] Last Admin: 01/02/18 09:53 Dose: 40 mg Gabapentin (Neurontin -) 600 mg PO DAILY [facility] Last Admin: 01/02/18 09:53 Dose: 600 mg Ceftriaxone Sodium 2 gm/ (Dextrose) 100 mls @ 200 mls/hr IVPB DAILY [facility]; Protocol Last Admin: 01/02/18 09:50 Dose: 200 mls/hr Lactic Acid (Lac-Hydrin 12) 1 applic TP DAILY [facility] Last Admin: 01/02/18 09:53 Dose: 1 applic Levothyroxine Sodium (Synthroid -) 75 mcg PO DAILY@0700 [facility] Last Admin: 01/02/18 06:32 Dose: 75 mcg Pantoprazole Sodium (Protonix -) 40 mg PO DAILY [facility] Last Admin: 01/02/18 09:52 Dose: 40 mg Potassium Chloride (K-Dur -) 40 meq PO DAILY [facility] Last Admin: 01/02/18 09:51 Dose: 40 meq Pramipexole Dihydrochloride (Mirapex -) 0.25 mg PO HS [facility] Last Admin: 01/01/18 21:34 Dose: 0.25 mg Senna (Senna -) 1 tab PO HS [facility] Last Admin: 01/01/18 21:34 Dose: 1 tab Silver Sulfadiazine (Silvadene -) 1 applic TP DAILY [facility] Last Admin: 01/02/18 09:53 Dose: 1 applic Warfarin Sodium (Coumadin -) 2 mg PO DAILY@1800 [facility] Last Admin: 01/01/18 18:06 Dose: 2 mg - Objective Vital Signs: Vital Signs Temperature 98.1 F 01/02/18 14:43 Pulse Rate 68 01/02/18 14:43 Respiratory Rate 20 01/02/18 14:43 Blood Pressure 110/57 01/02/18 14:43 O2 Sat by Pulse Oximetry (%) 95 01/02/18 09:00 Constitutional: Yes: Mild Distress Eyes: Yes: WNL HENT: Yes: WNL Neck: Yes: WNL Cardiovascular: Yes: Pulse Irregular Respiratory: Yes: WNL Gastrointestinal: Yes: WNL Genitourinary: Yes: Incontinence Musculoskeletal: Yes: Muscle Weakness Extremities: Yes: Erythema, Other Edema: No Peripheral Pulses WNL: Yes Integumentary: Yes: Pressure Ulcer (STAGE 3 RIGHT LOWER EXTREMITY CLEAN DRESSING REMOVED) Neurological: Yes: Pre-Existing Deficit ...Motor Strength: RLE Psychiatric: Yes: WNL Labs: CBC, BMP 01/02/18 06:30 01/02/18 06:30 INR, PTT INR 2.63 (0.83-1.09) H 01/02/18 16:00 Problem List - Problems (1) Anemia Code(s): D64.9 - ANEMIA, UNSPECIFIED Qualifiers: Anemia type: B12 deficiency 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 (2) Cellulitis of leg, right Code(s): L03.115 - CELLULITIS OF RIGHT LOWER LIMB (3) Afib Code(s): I48.91 - UNSPECIFIED ATRIAL FIBRILLATION (4) Avulsion, skin Code(s): T14.8 - OTHER INJURY OF UNSPECIFIED BODY REGION * DO NOT USE * (5) HTN (hypertension) Code(s): I10 - ESSENTIAL (PRIMARY) HYPERTENSION (6) Wound infection Code(s): T14.8 - OTHER INJURY OF UNSPECIFIED BODY REGION * DO NOT USE *; L08.9 - LOCAL INFECTION OF THE SKIN AND SUBCUTANEOUS TISSUE, UNSP Assessment/Plan WOUND CARE PER VASC SX CONSULT DR BLANCA PEÑA DAILY WITH DRESSING IV [id number] DAILY ID F/U PT EVAL AC FOR AFIB/DVT PROPHYLAXIS
[2018-01-02] MEDS: WARFARIN NA 2 MG TABLET (UD) PO SCH (18:37)
[2018-01-02] MEDS: ATORVASTATIN CA 40 MG TABLET (FP) PO SCH (22:31)
[2018-01-02] MEDS: PRAMIPEXOLE DIHYDROCHLORIDE 0.25 MG TABLET PO SCH (22:32)
[2018-01-02] MEDS: DOCUSATE SODIUM 100 MG CAPSULE (FP) PO SCH (22:32)
[2018-01-02] MEDS: SENNOSIDES 8.6MG TABLET (FP) PO SCH (22:32)
--- NOTE | 2018-01-02 22:57 | PN ---
Progress Note (short form) - Note Progress Note: Patient seen and examined RLE pain/ulcer Last Vital Signs Temp Pulse Resp BP Pulse Ox 98.3 F 60 20 109/54 96 01/03/18 05:41 01/03/18 05:41 01/03/18 05:41 01/03/18 05:41 01/02/18 21:00 Cor: RSR, No murmurs, No gallops Lungs: Clear to P&A Abd: Soft, Normal bowel sounds, No organomegaly Ext: Rt. ankle wrapped Labs/Meds reviewed A/P 87 yo female pmh of DM type 2, cellulitis , multiple myeloma (on chemotherapy) DVT (on Coumadin) hypothyroid (thyroid removed) presents to the ED from [facility] for fevers., rt. ankle blistering lesion/cellulitis On rocephin holding revlimid/dexmethasone at this time titrating inr closely while on antibiotics rt. pectoralis --4cm hematoma --monitoring
[2018-01-03] MEDS: ACETAMINOPHEN 325 MG TABLET (FP) PO PRN ×2 (00:04→14:03)
[2018-01-03] MEDS: traMADol HCL 50 MG TABLET PO PRN ×3 (01:28→15:25)
[2018-01-03] MEDS: LEVOTHYROXINE NA 75 MCG TABLET (FP) PO SCH (06:09)
[2018-01-03] MEDS ORDERED: DEXTROSE 5%-WATER 100 ML IVPB ONE (09:08)
[2018-01-03] MEDS: PANTOPRAZOLE 40 MG TABLET (FP) PO SCH (09:13)
[2018-01-03] MEDS: GABAPENTIN 300 MG CAPSULE (FP) PO SCH (09:13)
[2018-01-03] MEDS: FLUTICASONE PROP 0.05% 16 GM NASAL SPRAY NS SCH (09:14)
[2018-01-03] MEDS: POTASSIUM CHLORIDE TABS 10 MEQ TABLET.ER (FP) PO SCH (09:14)
[2018-01-03] MEDS: CEFTRIAXONE 2 GM in DEXTROSE 5%-WATER 100 ML IVPB SCH (09:14)
[2018-01-03] MEDS: FERROUS SO4 325 MG TABLET (FP) PO SCH (09:14)
[2018-01-03] MEDS: FUROSEMIDE 40 MG TABLET (FP) PO SCH (09:14)
[2018-01-03] MEDS: AMMONIUM LACTATE 12% LOTION 225 GM BOTTLE TP SCH (09:17)
[2018-01-03] MEDS: SILVER SULFADIAZINE 1% TOP CREAM 400 GM JAR TP SCH (15:25)
--- NOTE | 2018-01-03 16:03 | PN ---
Progress Note, Physician Chief Complaint: ASLEEP COMFORTABLE EVENTS NOTED AND REVIEWED - Current Medication List Current Medications: Active Medications Acetaminophen (Tylenol -) 650 mg PO Q4H PRN PRN Reason: PAIN OR FEVER Last Admin: 01/03/18 14:03 Dose: 650 mg Atorvastatin Calcium (Lipitor -) 40 mg PO HS [facility] Last Admin: 01/02/18 22:31 Dose: 40 mg Docusate Sodium (Colace -) 100 mg PO HS [facility] Last Admin: 01/02/18 22:32 Dose: 100 mg Ferrous Sulfate (Feosol -) 325 mg PO DAILY [facility] Last Admin: 01/03/18 09:14 Dose: 325 mg Fluticasone Propionate (Flonase -) 2 spray NS DAILY [facility] Last Admin: 01/03/18 09:14 Dose: 2 spray Furosemide (Lasix -) 40 mg PO DAILY [facility] Last Admin: 01/03/18 09:14 Dose: 40 mg Gabapentin (Neurontin -) 600 mg PO DAILY [facility] Last Admin: 01/03/18 09:13 Dose: 600 mg Ceftriaxone Sodium 2 gm/ (Dextrose) 100 mls @ 200 mls/hr IVPB DAILY [facility]; Protocol Last Admin: 01/03/18 09:14 Dose: 200 mls/hr Lactic Acid (Lac-Hydrin 12) 1 applic TP DAILY [facility] Last Admin: 01/03/18 09:17 Dose: 1 applic Levothyroxine Sodium (Synthroid -) 75 mcg PO DAILY@0700 [facility] Last Admin: 01/03/18 06:09 Dose: 75 mcg Pantoprazole Sodium (Protonix -) 40 mg PO DAILY [facility] Last Admin: 01/03/18 09:13 Dose: 40 mg Potassium Chloride (K-Dur -) 40 meq PO DAILY [facility] Last Admin: 01/03/18 09:14 Dose: 40 meq Pramipexole Dihydrochloride (Mirapex -) 0.25 mg PO HS [facility] Last Admin: 01/02/18 22:32 Dose: 0.25 mg Senna (Senna -) 1 tab PO HS [facility] Last Admin: 01/02/18 22:32 Dose: 1 tab Silver Sulfadiazine (Silvadene -) 1 applic TP DAILY [facility] Last Admin: 01/03/18 15:25 Dose: 1 applic Tramadol HCl (Ultram -) 50 mg PO Q8H PRN PRN Reason: PAIN LEVEL 6-10 Last Admin: 01/03/18 15:25 Dose: 50 mg Warfarin Sodium (Coumadin -) 2 mg PO DAILY@1800 [facility] Last Admin: 01/02/18 18:37 Dose: 2 mg - Objective Vital Signs: Vital Signs Temperature 98.7 F 01/03/18 14:52 Pulse Rate 74 01/03/18 14:52 Respiratory Rate 20 01/03/18 14:52 Blood Pressure 108/56 01/03/18 14:52 O2 Sat by Pulse Oximetry (%) 97 01/03/18 09:11 Constitutional: Yes: No Distress Eyes: Yes: WNL HENT: Yes: WNL Neck: Yes: WNL Cardiovascular: Yes: Regular Rate and Rhythm Respiratory: Yes: WNL Gastrointestinal: Yes: WNL Genitourinary: Yes: Incontinence Musculoskeletal: Yes: Muscle Weakness Extremities: Yes: Other Peripheral Pulses WNL: Yes Integumentary: Yes: Pressure Ulcer Wound/Incision: Yes: Dressing Dry and Intact Neurological: Yes: Pre-Existing Deficit ...Motor Strength: RLE Psychiatric: Yes: Other Labs: CBC, BMP 01/02/18 06:30 01/02/18 06:30 INR, PTT INR 2.63 (0.83-1.09) H 01/02/18 16:00 Problem List - Problems (1) Anemia Code(s): D64.9 - ANEMIA, UNSPECIFIED Qualifiers: Anemia type: B12 deficiency 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 (2) Cellulitis of leg, right Code(s): L03.115 - CELLULITIS OF RIGHT LOWER LIMB (3) Afib Code(s): I48.91 - UNSPECIFIED ATRIAL FIBRILLATION (4) Avulsion, skin Code(s): T14.8 - OTHER INJURY OF UNSPECIFIED BODY REGION * DO NOT USE * (5) HTN (hypertension) Code(s): I10 - ESSENTIAL (PRIMARY) HYPERTENSION (6) Wound infection Code(s): T14.8 - OTHER INJURY OF UNSPECIFIED BODY REGION * DO NOT USE *; L08.9 - LOCAL INFECTION OF THE SKIN AND SUBCUTANEOUS TISSUE, UNSP Assessment/Plan WOUND CARE PER VASC SX CONSULT DR BLANCA PEÑA DAILY WITH DRESSING IV CEFTRIAXONE DAILY ID F/U PT EVAL AC FOR AFIB/DVT PROPHYLAXIS RESTART COUMADIN 2MG HS
[2018-01-03] MEDS: WARFARIN NA 2 MG TABLET (UD) PO SCH (17:18)
--- NOTE | 2018-01-03 17:49 | PN ---
Progress Note (short form) - Note Progress Note: Patient seen and examined Lower extremity dressed - Dressing removed - Still area of erythema and with some purulence Last Vital Signs Temp Pulse Resp BP Pulse Ox 98.7 F 74 20 108/56 97 01/03/18 14:52 01/03/18 14:52 01/03/18 14:52 01/03/18 14:52 01/03/18 09:11 HEENT: EBEN, EOM Intact Oropharynx: No thrush, No mucositis,dentures Neck: Supple Nodes: Without adenopathy Breasts: Without masses Cor: RSR, No murmurs, No gallops Lungs: Clear to P&A Abd: Soft, Normal bowel sounds, No organomegaly Ext:LE extremity erythema skin breakdown and area of purulence CBC, BMP 01/02/18 06:30 01/02/18 06:30 Current Medications Generic Name Dose Route Start Last Admin Trade Name Freq PRN Reason Stop Dose Admin Acetaminophen 650 mg 12/24/17 10:20 01/03/18 14:03 Tylenol - PO 650 mg Q4H PRN Administration PAIN OR FEVER Atorvastatin Calcium 40 mg 12/31/17 22:00 01/02/18 22:31 Lipitor - PO 40 mg HS [facility] Administration Docusate Sodium 100 mg 12/31/17 22:00 01/02/18 22:32 Colace - PO 100 mg HS [facility] Administration Ferrous Sulfate 325 mg 12/27/17 10:00 01/03/18 09:14 Feosol - PO 325 mg DAILY [facility] Administration Fluticasone Propionate 2 spray 12/31/17 10:00 01/03/18 09:14 Flonase - NS 2 spray DAILY [facility] Administration Furosemide 40 mg 12/29/17 10:00 01/03/18 09:14 Lasix - PO 40 mg DAILY [facility] Administration Gabapentin 600 mg 12/31/17 10:00 01/03/18 09:13 Neurontin - PO 600 mg DAILY [facility] Administration Ceftriaxone Sodium 2 gm/ 100 mls @ 200 mls/hr 12/29/17 10:00 01/03/18 09:14 Dextrose IVPB 200 mls/hr DAILY [facility] Administration Protocol Lactic Acid 1 applic 12/31/17 10:00 01/03/18 09:17 Lac-Hydrin 12 TP 1 applic DAILY [facility] Administration Levothyroxine Sodium 75 mcg 12/31/17 07:45 01/03/18 06:09 Synthroid - PO 75 mcg DAILY@0700 [facility] Administration Multivitamins/Minerals/Vitamin C 1 tab 01/04/18 10:00 Tab-A-Vit - PO DAILY [facility] Pantoprazole Sodium 40 mg 12/31/17 10:00 01/03/18 09:13 Protonix - PO 40 mg DAILY [facility] Administration Potassium Chloride 40 meq 12/25/17 10:00 01/03/18 09:14 K-Dur - PO 40 meq DAILY [facility] Administration Pramipexole Dihydrochloride 0.25 mg 12/31/17 22:00 01/02/18 22:32 Mirapex - PO 0.25 mg HS [facility] Administration Senna 1 tab 12/31/17 22:00 01/02/18 22:32 Senna - PO 1 tab HS [facility] Administration Silver Sulfadiazine 1 applic 12/28/17 10:00 01/03/18 15:25 Silvadene - TP 1 applic DAILY [facility] Administration Tramadol HCl 50 mg 01/03/18 01:19 01/03/18 15:25 Ultram - PO 50 mg Q8H PRN Administration PAIN LEVEL 6-10 Warfarin Sodium 2 mg 12/31/17 18:00 01/03/18 17:18 Coumadin - PO 2 mg DAILY@1800 [facility] Administration Zinc Sulfate 220 mg 01/04/18 10:00 Orazinc - PO DAILY [facility] Impression: Multiple myeloma-not in remission LE cellulitis Anemia h/o DVT Plan: Continuing current therapy Chemotherapy continuing to be with-held. Pl
[2018-01-03] MEDS: DOCUSATE SODIUM 100 MG CAPSULE (FP) PO SCH (21:13)
[2018-01-03] MEDS: SENNOSIDES 8.6MG TABLET (FP) PO SCH (21:14)
[2018-01-03] MEDS: ATORVASTATIN CA 40 MG TABLET (FP) PO SCH (21:14)
[2018-01-03] MEDS: PRAMIPEXOLE DIHYDROCHLORIDE 0.25 MG TABLET PO SCH (21:14)
[2018-01-04] MEDS: LEVOTHYROXINE NA 75 MCG TABLET (FP) PO SCH (06:10)
[2018-01-04 07:39] LABS: HEMATOCRIT 29.6 % (32.4-45.2); HEMOGLOBIN 9.7 GM/dL (10.7-15.3); MCHC 32.6 g/dl (32.0-36.0); MEAN CELL VOLUME 88.9 fl (80-96); PLATELET COUNT 311 K/MM3 (134-434); RBC 3.33 M/mm3 (3.60-5.2); RDW 20.6 % (11.6-15.6); WHITE BLOOD COUNT 7.3 K/mm3 (4.0-10.0)
[2018-01-04 08:15] LABS: PROTHROMBIN TIME (PATIENT) 33.9 SEC (9.7-13.0)
[2018-01-04 08:30] LABS: ANION GAP 7 MMOL/L (8-16); BLOOD UREA NITROGEN 15 mg/dL (7-18); CALCIUM 8.3 mg/dL (8.5-10.1); CHLORIDE 102 mmol/L (98-107); CO2 29 mmol/L (21-32); GLUCOSE,RANDOM 75 mg/dL (74-106); POTASSIUM 4.2 mmol/L (3.5-5.1); SODIUM 138 mmol/L (136-145)
[2018-01-04] MEDS ORDERED: MULTIVITAMINS (DAILY MVI) TABLET (FP) PO SCH (10:00)
[2018-01-04] MEDS ORDERED: ZINC SULFATE 220 MG CAPSULE (FP) PO SCH (10:00)
[2018-01-04] MEDS ORDERED: PT OWN MED DRAWER 7, Y5N ONE (10:11)
[2018-01-04] MEDS ORDERED: DEXTROSE 5%-WATER 100 ML IVPB ONE (10:11)
[2018-01-04] MEDS: AMMONIUM LACTATE 12% LOTION 225 GM BOTTLE TP SCH (10:18)
[2018-01-04] MEDS: traMADol HCL 50 MG TABLET PO PRN ×2 (10:19→18:36)
[2018-01-04] MEDS: SILVER SULFADIAZINE 1% TOP CREAM 400 GM JAR TP SCH (10:19)
[2018-01-04] MEDS: FUROSEMIDE 40 MG TABLET (FP) PO SCH (10:20)
[2018-01-04] MEDS: GABAPENTIN 300 MG CAPSULE (FP) PO SCH (10:20)
[2018-01-04] MEDS: FLUTICASONE PROP 0.05% 16 GM NASAL SPRAY NS SCH (10:20)
[2018-01-04] MEDS: POTASSIUM CHLORIDE TABS 10 MEQ TABLET.ER (FP) PO SCH (10:20)
[2018-01-04] MEDS: PANTOPRAZOLE 40 MG TABLET (FP) PO SCH (10:20)
[2018-01-04] MEDS: FERROUS SO4 325 MG TABLET (FP) PO SCH (10:20)
[2018-01-04] MEDS: CEFTRIAXONE 2 GM in DEXTROSE 5%-WATER 100 ML IVPB SCH (10:20)
--- NOTE | 2018-01-04 11:59 | PN ---
Progress Note, Physician History of Present Illness: Reports marked improvement in leg pain Temps down Afebrile - Current Medication List Current Medications: Active Medications Acetaminophen (Tylenol -) 650 mg PO Q4H PRN PRN Reason: PAIN OR FEVER Last Admin: 01/03/18 14:03 Dose: 650 mg Atorvastatin Calcium (Lipitor -) 40 mg PO HS [facility] Last Admin: 01/03/18 21:14 Dose: 40 mg Docusate Sodium (Colace -) 100 mg PO HS [facility] Last Admin: 01/03/18 21:13 Dose: Not Given Ferrous Sulfate (Feosol -) 325 mg PO DAILY [facility] Last Admin: 01/04/18 10:20 Dose: 325 mg Fluticasone Propionate (Flonase -) 2 spray NS DAILY [facility] Last Admin: 01/04/18 10:20 Dose: 2 spray Furosemide (Lasix -) 40 mg PO DAILY [facility] Last Admin: 01/04/18 10:20 Dose: 40 mg Gabapentin (Neurontin -) 600 mg PO DAILY [facility] Last Admin: 01/04/18 10:20 Dose: 600 mg Ceftriaxone Sodium 2 gm/ (Dextrose) 100 mls @ 200 mls/hr IVPB DAILY [facility]; Protocol Last Admin: 01/04/18 10:20 Dose: 200 mls/hr Lactic Acid (Lac-Hydrin 12) 1 applic TP DAILY [facility] Last Admin: 01/04/18 10:18 Dose: 1 applic Levothyroxine Sodium (Synthroid -) 75 mcg PO DAILY@0700 [facility] Last Admin: 01/04/18 06:10 Dose: 75 mcg Multivitamins/Minerals/Vitamin C (Tab-A-Vit -) 1 tab PO DAILY [facility] Last Admin: 01/04/18 10:20 Dose: 1 tab Pantoprazole Sodium (Protonix -) 40 mg PO DAILY [facility] Last Admin: 01/04/18 10:20 Dose: 40 mg Potassium Chloride (K-Dur -) 40 meq PO DAILY [facility] Last Admin: 01/04/18 10:20 Dose: 40 meq Pramipexole Dihydrochloride (Mirapex -) 0.25 mg PO HS [facility] Last Admin: 01/03/18 21:14 Dose: 0.25 mg Senna (Senna -) 1 tab PO HS [facility] Last Admin: 01/03/18 21:14 Dose: 1 tab Silver Sulfadiazine (Silvadene -) 1 applic TP DAILY [facility] Last Admin: 01/04/18 10:19 Dose: 1 applic Tramadol HCl (Ultram -) 50 mg PO Q8H PRN PRN Reason: PAIN LEVEL 6-10 Last Admin: 01/04/18 10:19 Dose: 50 mg Warfarin Sodium (Coumadin -) 1.5 mg PO DAILY@1800 [facility] Zinc Sulfate (Orazinc -) 220 mg PO DAILY [facility] Last Admin: 01/04/18 10:20 Dose: 220 mg - Objective Vital Signs: Vital Signs Temperature 98.7 F 01/04/18 05:28 Pulse Rate 69 01/04/18 05:28 Respiratory Rate 18 01/04/18 05:28 Blood Pressure 103/62 01/04/18 05:28 O2 Sat by Pulse Oximetry (%) 97 01/03/18 19:52 Constitutional: Yes: No Distress Eyes: Yes: Conjunctiva Clear Cardiovascular: Yes: Regular Rate and Rhythm, S1, S2 Respiratory: Yes: CTA Bilaterally Gastrointestinal: Yes: Normal Bowel Sounds, Soft. No: Tenderness Extremities: Yes: Other (+ shallow -based R LE ulcer. No purulent drainage. Surounding erythema resolved) Labs: CBC, BMP 01/04/18 06:45 01/04/18 06:45 INR, PTT INR 3.00 (0.83-1.09) H 01/04/18 06:45 Assessment/Plan Cellulitis R LE resolved Non-healing leg ulcer Multiple myeloma Diabetes mellitus Discontinue ceftriaxone Substitute levaquin 250mg po qd x 3d
--- NOTE | 2018-01-04 12:09 | DS ---
Physical Examination Vital Signs: Vital Signs Temperature 98.7 F 01/04/18 05:28 Pulse Rate 69 01/04/18 05:28 Respiratory Rate 18 01/04/18 05:28 Blood Pressure 103/62 01/04/18 05:28 O2 Sat by Pulse Oximetry (%) 97 01/03/18 19:52 Constitutional: Yes: No Distress Eyes: Yes: WNL HENT: Yes: WNL Neck: Yes: WNL Cardiovascular: Yes: WNL Respiratory: Yes: WNL Gastrointestinal: Yes: WNL Renal/: Yes: Incontinence Musculoskeletal: Yes: Muscle Weakness Extremities: Yes: Deformity Edema: No Peripheral Pulses WNL: Yes Integumentary: Yes: Pressure Ulcer Wound/Incision: Yes: Dressing Dry and Intact, Excoriated, Unapproximated Neurological: Yes: Pre-Existing Deficit ...Motor Strength: RLE Psychiatric: Yes: WNL Labs: CBC, BMP 01/04/18 06:45 01/04/18 06:45 Discharge Summary Reason For Visit: CELLLULITIS Current Active Problems Anemia (Acute) Axillary mass (Acute) CHF (congestive heart failure) (Acute) Cellulitis (Acute) Cellulitis of leg, right (Acute) Elevated troponin (Acute) Procedures: Principal: CT SCAN Hospital Course: ADMITTED WOUND ULCER RIGHT LOWER EXTEMITY NON-HEALING, TREATED WITH DEBRIDING SKIN WITH VASC SX AND IV ABX, WILL NEED F/U WITH WOUND CENTER Condition: Improved - Instructions Diet, Activity, Other Instructions: SEE DR KELLY ONCOLOGY FOR FOLLOW UP ON WHEN TO START CHEMOTHERAPY ABX LEVAQUIN DAILY 250MG FOR DAYS SILVADENE CREAM DAILY WITH DRESSING TO RIGHT LOWER EXTREMITY WOUND SEE YOUR PMD DR ALEXANDRE IN 1 WEEKS Referrals: Alejandro Grimm MD [Primary Care Provider] - Disposition: [facility] - Home Medications Comprehensive Discharge Medication List: Ambulatory Orders Albuterol Sulfate [Proair Hfa] 8.5 gm IH Q6H PRN 08/13/17 Ammonium Lactate Cream [Lac-Hydrin 12% Cream -] 1 applic TP DAILY 08/13/17 Atorvastatin Ca [Lipitor] 40 mg PO HS 08/13/17 Dexamethasone 4 mg PO WEEKLY 08/13/17 Docusate Sodium [Colace] 100 mg PO HS 08/13/17 Fluticasone Prop 0.05% Nasal [Flonase -] 2 spray NS DAILY 08/13/17 Furosemide [Lasix] 40 mg PO DAILY 08/13/17 Gabapentin 600 mg PO DAILY 08/13/17 Ibuprofen 600 mg PO Q6H PRN 08/13/17 Lenalidomide [Revlimid] 10 mg PO DAILY 08/13/17 Levomefolate/B6/B12/Algal Oil [Metanx Capsule] 1 each PO DAILY 08/13/17 Levothyroxine [Synthroid -] 75 mcg PO DAILY 08/13/17 Metoprolol Succinate 12.5 mg PO DAILY 08/13/17 Pantoprazole Sodium 40 mg PO DAILY 08/13/17 Pramipexole Di-HCl [Mirapex] 0.25 mg PO HS 08/13/17 Sennosides [Senna Lax] 8.6 mg PO HS 08/13/17 Valacyclovir HCl [Valtrex] 500 mg PO DAILY 08/13/17 Warfarin Sodium [Coumadin] 5 mg PO DAILY 08/13/17 Magnesium 250 mg PO DAILY 11/20/17 Meclizine HCl 25 mg PO DAILY 11/20/17 Potassium Chloride 20 meq PO BID 11/20/17 Warfarin Na [Coumadin Protocol] 4 each PO DAILY 11/20/17 Acetaminophen [Tylenol .Regular Strength -] 650 mg PO Q4H PRN tablet 01/04/18 Ferrous Sulfate [Feosol] 325 mg PO DAILY [facility] 01/04/18 Furosemide [Lasix -] 40 mg PO DAILY tablet 01/04/18 Multivitamins [Multivit ([facility] Formulary)] 1 tab PO DAILY tab 01/04/18 Potassium Chloride [K-Dur -] 40 meq PO DAILY tablet.er 01/04/18 Silver Sulfadiazine 1% Top Cr [Silvadene -] 1 applic TP DAILY [facility] 01/04/18 Warfarin Na [Coumadin -] 2 mg PO DAILY@1800 tablet 01/04/18 Zinc Sulfate [Orazinc -] 220 mg PO DAILY 30 Days capsule 01/04/18 levoFLOXacin [Levaquin -] 250 mg PO DAILY #3 tablet 01/04/18 traMADol HCL [Ultram -] 50 mg PO Q8H PRN tablet MDD 3 01/04/18
--- NOTE | 2018-01-04 16:23 | PN ---
Progress Note (short form) - Note Progress Note: s: no cp sob palps dizzy o: Vital Signs Period Temp Pulse Resp BP Sys/Ferrer Pulse Ox Last 24 Hr 98.4 F-98.8 F 63-79 18-20 103-135/48-62 97-99 Constitutional: Yes: No Distress, Calm Eyes: Yes: Conjunctiva Clear Respiratory: Yes: Regular, CTA Bilaterally Gastrointestinal: Yes: Normal Bowel Sounds, Soft Cardiovascular: Yes: Regular Rate and Rhythm Heart Sounds: Yes: S1, S2 Murmur: Yes: Systolic Murmur Extremities: Yes: Other (L ankle/foot erythema, tender to palpation) Edema: Yes no jaundice diaphoresis Neurological: Yes: Alert, Oriented Current Medications Generic Name Dose Route Start Last Admin Trade Name Freq PRN Reason Stop Dose Admin Acetaminophen 650 mg 12/24/17 10:20 01/03/18 14:03 Tylenol - PO 650 mg Q4H PRN Administration PAIN OR FEVER Atorvastatin Calcium 40 mg 12/31/17 22:00 01/03/18 21:14 Lipitor - PO 40 mg HS [facility] Administration Docusate Sodium 100 mg 12/31/17 22:00 01/03/18 21:13 Colace - PO Not Given HS [facility] Ferrous Sulfate 325 mg 12/27/17 10:00 01/04/18 10:20 Feosol - PO 325 mg DAILY [facility] Administration Fluticasone Propionate 2 spray 12/31/17 10:00 01/04/18 10:20 Flonase - NS 2 spray DAILY [facility] Administration Furosemide 40 mg 12/29/17 10:00 01/04/18 10:20 Lasix - PO 40 mg DAILY [facility] Administration Gabapentin 600 mg 12/31/17 10:00 01/04/18 10:20 Neurontin - PO 600 mg DAILY [facility] Administration Lactic Acid 1 applic 12/31/17 10:00 01/04/18 10:18 Lac-Hydrin 12 TP 1 applic DAILY [facility] Administration Levofloxacin 250 mg 01/04/18 12:15 Levaquin - PO DAILY [facility] Levothyroxine Sodium 75 mcg 12/31/17 07:45 01/04/18 06:10 Synthroid - PO 75 mcg DAILY@0700 [facility] Administration Multivitamins/Minerals/Vitamin C 1 tab 01/04/18 10:00 01/04/18 10:20 Tab-A-Vit - PO 1 tab DAILY [facility] Administration Pantoprazole Sodium 40 mg 12/31/17 10:00 01/04/18 10:20 Protonix - PO 40 mg DAILY [facility] Administration Potassium Chloride 40 meq 12/25/17 10:00 01/04/18 10:20 K-Dur - PO 40 meq DAILY [facility] Administration Pramipexole Dihydrochloride 0.25 mg 12/31/17 22:00 01/03/18 21:14 Mirapex - PO 0.25 mg HS [facility] Administration Senna 1 tab 12/31/17 22:00 01/03/18 21:14 Senna - PO 1 tab HS [facility] Administration Silver Sulfadiazine 1 applic 12/28/17 10:00 01/04/18 10:19 Silvadene - TP 1 applic DAILY [facility] Administration Tramadol HCl 50 mg 01/03/18 01:19 01/04/18 10:19 Ultram - PO 50 mg Q8H PRN Administration PAIN LEVEL 6-10 Warfarin Sodium 1.5 mg 01/04/18 18:00 Coumadin - PO DAILY@1800 [facility] Zinc Sulfate 220 mg 01/04/18 10:00 01/04/18 10:20 Orazinc - PO 220 mg DAILY [facility] Administration CBC, BMP 01/04/18 06:45 01/04/18 06:45 Assessment/Plan MPI 2013 (damir): no STs; no ischemia; nl EF Echo 09/08: nl LV size and function, EF 55-60%, mild AR, RA mildly enlarged, mild -mod TR, aorta atherosclerotic plaque present Echo 2014: nl LVSF; nl RV; mild-mod AI; mod TR; RVSP 40-50 Carotids 12/09: minimal athero, normal velocity. EKG sinus with PACs, LVH srinivas lower ext venous ultrasound no DVT 85F h/o DM, cellulitis, mult myeloma, afib and DVT on coumadin, hypothyroidism p /w fever Bilat pleural effusions - no h/o CHF, prior echo nl EF - IV lasix 40 mg daily ordered, received - remains euvolemic today, no dyspnea - cont lasix 40 mg PO daily Positive troponin - 0.06->0.11->0.12, mild elevation with flat trend, asymptomatic. not c/w acs. - EKG not concerning for ischemia fever, cellulitis - on abx - ID following Afib - in sr - continue coumadin per inr - metoprolol held, has had low BPs here - rate stable DVT - on warfarin HLD - cont statin DM - manage per primary team cardiac hawkins stable for dc
--- NOTE | 2018-01-04 16:27 | PN ---
Progress Note (short form) - Note Progress Note: Patient seen and examined Last Vital Signs Temp Pulse Resp BP Pulse Ox 98.4 F 70 20 108/59 99 01/04/18 13:47 01/04/18 13:47 01/04/18 13:47 01/04/18 13:47 01/04/18 10:20 HEENT: EBEN, EOM Intact Oropharynx: No thrush, No mucositis,dentures Cor: RSR, No murmurs, No gallops Lungs: Clear to P&A Abd: Soft, Normal bowel sounds, No organomegaly Ext:cellulitis; leg ulcer CBC, BMP 01/04/18 06:45 01/04/18 06:45 Current Medications Generic Name Dose Route Start Last Admin Trade Name Freq PRN Reason Stop Dose Admin Acetaminophen 650 mg 12/24/17 10:20 01/03/18 14:03 Tylenol - PO 650 mg Q4H PRN Administration PAIN OR FEVER Atorvastatin Calcium 40 mg 12/31/17 22:00 01/03/18 21:14 Lipitor - PO 40 mg HS [facility] Administration Docusate Sodium 100 mg 12/31/17 22:00 01/03/18 21:13 Colace - PO Not Given HS [facility] Ferrous Sulfate 325 mg 12/27/17 10:00 01/04/18 10:20 Feosol - PO 325 mg DAILY [facility] Administration Fluticasone Propionate 2 spray 12/31/17 10:00 01/04/18 10:20 Flonase - NS 2 spray DAILY [facility] Administration Furosemide 40 mg 12/29/17 10:00 01/04/18 10:20 Lasix - PO 40 mg DAILY [facility] Administration Gabapentin 600 mg 12/31/17 10:00 01/04/18 10:20 Neurontin - PO 600 mg DAILY [facility] Administration Lactic Acid 1 applic 12/31/17 10:00 01/04/18 10:18 Lac-Hydrin 12 TP 1 applic DAILY [facility] Administration Levofloxacin 250 mg 01/04/18 12:15 Levaquin - PO DAILY [facility] Levothyroxine Sodium 75 mcg 12/31/17 07:45 01/04/18 06:10 Synthroid - PO 75 mcg DAILY@0700 [facility] Administration Multivitamins/Minerals/Vitamin C 1 tab 01/04/18 10:00 01/04/18 10:20 Tab-A-Vit - PO 1 tab DAILY [facility] Administration Pantoprazole Sodium 40 mg 12/31/17 10:00 01/04/18 10:20 Protonix - PO 40 mg DAILY [facility] Administration Potassium Chloride 40 meq 12/25/17 10:00 01/04/18 10:20 K-Dur - PO 40 meq DAILY [facility] Administration Pramipexole Dihydrochloride 0.25 mg 12/31/17 22:00 01/03/18 21:14 Mirapex - PO 0.25 mg HS [facility] Administration Senna 1 tab 12/31/17 22:00 01/03/18 21:14 Senna - PO 1 tab HS [facility] Administration Silver Sulfadiazine 1 applic 12/28/17 10:00 01/04/18 10:19 Silvadene - TP 1 applic DAILY [facility] Administration Tramadol HCl 50 mg 01/03/18 01:19 01/04/18 10:19 Ultram - PO 50 mg Q8H PRN Administration PAIN LEVEL 6-10 Warfarin Sodium 1.5 mg 01/04/18 18:00 Coumadin - PO DAILY@1800 [facility] Zinc Sulfate 220 mg 01/04/18 10:00 01/04/18 10:20 Orazinc - PO 220 mg DAILY [facility] Administration INR, PTT INR 3.00 (0.83-1.09) H 01/04/18 06:45 Impression: Myeloma not in remission Cellulitis LE Ulcer LE Anemia Plan : office follow up to resume therapy
[2018-01-04] MEDS ORDERED: WARFARIN NA 3 MG TABLET PO SCH (18:00)
[2018-01-04 18:09] VITALS: BP 104/50; PULSE 67; TEMP 98.6
== END 2018-01-04 19:21 | DRG 603 ==
LOC: JER 12:53 → JERBED 17:00 → J4W 22:33 → J7W 12-31 06:45
PROVIDERS: ADMIT Family Medicine; ATTEND Family Medicine
DX: L03.115 Cellulitis of right lower limb (principal); D68.9 Coagulation defect, unspecified; C90.00 Multiple myeloma not having achieved remission; J90 Pleural effusion, not elsewhere classified; I24.8 Other forms of acute ischemic heart disease; L97.819 Non-pressure chronic ulcer of other part of right lower leg with unspecified severity; M79.81 Nontraumatic hematoma of soft tissue; Z86.718 Personal history of other venous thrombosis and embolism; Z79.01 Long term (current) use of anticoagulants; E03.9 Hypothyroidism, unspecified; Z87.891 Personal history of nicotine dependence; E87.6 Hypokalemia; D64.9 Anemia, unspecified; I48.91 Unspecified atrial fibrillation; E11.40 Type 2 diabetes mellitus with diabetic neuropathy, unspecified; L13.9 Bullous disorder, unspecified; D51.0 Vitamin B12 deficiency anemia due to intrinsic factor deficiency; T45.515A Adverse effect of anticoagulants, initial encounter; R74.8 Abnormal levels of other serum enzymes; I70.0 Atherosclerosis of aorta
CPT/HCPCS: 36415; 71045-TC-FY; 71250-TC; 73201-TC-RT; 73700-TC-RT; 74176-TC; 80048; 80053; 81003; 81015; 82272; 82533; 82550; 82553; 82607; 82728; 82803; 82962; 83036; 83540; 83550; 83605; 83615; 83735; 83880; 84100; 84439; 84443; 84484; 85025; 85027; 85610; 85651; 85730; 86140; 87040; 87070; 87086; 87186; 87205; 87324; 87449; 93005; 93010; 93970-TC; 97116-GP; 97161-GP; 99285-25; G0480; J0131; J1644; J1756; J7030

== ENCOUNTER 2018-02-07 07:45 | Day surgery (SDC) | payer OTHER, BC, MEDICARE ==
[2018-02-07] MEDS ORDERED: BORTEZOMIB (VELCADE) 2.5 MG/ML SUB-Q INJECTION SQ ONE (09:00)
[2018-02-07 09:48] LABS: BASO % 0.6 % (0-2.0); EOS % 1.4 % (0-4.5); HEMATOCRIT 34.8 % (32.4-45.2); HEMOGLOBIN 11.4 GM/dL (10.7-15.3); LYMPH % 10.7 % (8-40); MCH 31.3 pg (25.7-33.7); MCHC 32.9 g/dl (32.0-36.0); MEAN CELL VOLUME 95.2 fl (80-96); MEAN PLT VOLUME 8.1 fl (7.5-11.1); MONO % 10.4 % (3.8-10.2); NEUT % 76.9 % (42.8-82.8); PLATELET COUNT 258 K/MM3 (134-434); RBC 3.65 M/mm3 (3.60-5.2); RDW 24.3 % (11.6-15.6); WHITE BLOOD COUNT 5.6 K/mm3 (4.0-10.0)
[2018-02-07 10:28] LABS: ALBUMIN 2.7 g/dl (3.4-5.0); ALBUMIN 2.8 g/dl (3.4-5.0); ALK PHOS 80 U/L (45-117); ANION GAP 6 MMOL/L (8-16); BILIRUBIN,DIRECT 0.2 mg/dL (0.0-0.2); BILIRUBIN,TOTAL 0.4 mg/dL (0.2-1); BLOOD UREA NITROGEN 6 mg/dL (7-18); CALCIUM 9.1 mg/dL (8.5-10.1); CHLORIDE 109 mmol/L (98-107); CO2 26 mmol/L (21-32); CREATININE 0.7 mg/dL (0.55-1.3); GLUCOSE,RANDOM 91 mg/dL (74-106); MAGNESIUM 2.1 mg/dL (1.8-2.4); POTASSIUM 5.1 mmol/L (3.5-5.1); SGOT/AST 21 U/L (15-37); SGPT/ALT 19 U/L (13-61); SODIUM 141 mmol/L (136-145); TOT PROT 5.9 g/dl (6.4-8.2)
[2018-02-07 11:46] LABS: ANISOCYTOSIS 1+; MACROCYTOSIS 1+; OVALOCYTE 1+; PLATELET ESTIMATE NORMAL; TARGET CELLS 1+
[2018-02-07 17:39] VITALS: BP 135/57; PULSE 60; TEMP 97.7
== END 2018-02-07 10:45 | disposition home or self-care (01) ==
LOC: JONCCHEMO 07:45 → J7W 10:11 → JONCCHEMO 10:45
PROVIDERS: ATTEND Internal Medicine Hematology & Oncology
DX: Z51.11 Encounter for antineoplastic chemotherapy (principal); C90.00 Multiple myeloma not having achieved remission; E11.9 Type 2 diabetes mellitus without complications
CPT/HCPCS: 36415; 80053; 80076; 83735; 85025; 96401; J9041

== ENCOUNTER 2018-02-21 07:49 | Day surgery (SDC) | payer OTHER, BC ==
[2018-02-21 10:26] LABS: BASO % 0.3 % (0-2.0); EOS % 2.2 % (0-4.5); HEMATOCRIT 34.2 % (32.4-45.2); HEMOGLOBIN 11.2 GM/dL (10.7-15.3); MCH 31.2 pg (25.7-33.7); MCHC 32.7 g/dl (32.0-36.0); MEAN CELL VOLUME 95.3 fl (80-96); MEAN PLT VOLUME 8.6 fl (7.5-11.1); MONO % 9.4 % (3.8-10.2); NEUT % 83.1 % (42.8-82.8); PLATELET COUNT 234 K/MM3 (134-434); RBC 3.59 M/mm3 (3.60-5.2)
[2018-02-21 10:49] LABS: BLOOD UREA NITROGEN 10 mg/dL (7-18); CHLORIDE 106 mmol/L (98-107); CO2 28 mmol/L (21-32); CREATININE 0.8 mg/dL (0.55-1.3); GLUCOSE,RANDOM 72 mg/dL (74-106); POTASSIUM 5.1 mmol/L (3.5-5.1); SODIUM 142 mmol/L (136-145)
[2018-02-21 10:50] LABS: ALBUMIN 2.6 g/dl (3.4-5.0); ALK PHOS 67 U/L (45-117); ANION GAP 8 MMOL/L (8-16); BILIRUBIN,DIRECT 0.2 mg/dL (0.0-0.2); BILIRUBIN,TOTAL 0.6 mg/dL (0.2-1); CALCIUM 8.5 mg/dL (8.5-10.1); MAGNESIUM 2.1 mg/dL (1.8-2.4); SGOT/AST 16 U/L (15-37); SGPT/ALT 18 U/L (13-61); TOT PROT 5.8 g/dl (6.4-8.2)
[2018-02-21 11:52] LABS: ANISOCYTOSIS 1+; MACROCYTOSIS 1+; OVALOCYTE 1+; PLATELET ESTIMATE NORMAL; TARGET CELLS 1+
[2018-02-21] MEDS ORDERED: BORTEZOMIB (VELCADE) 2.5 MG/ML SUB-Q INJECTION SQ ONE (12:00)
[2018-02-21 13:25] VITALS: BP 110/49; PULSE 61; TEMP 97.3
[2018-02-22] MEDS ORDERED: BORTEZOMIB (VELCADE) 2.5 MG/ML SUB-Q INJECTION SQ ONE (08:00)
== END 2018-02-21 13:38 | disposition home or self-care (01) ==
LOC: JONCCHEMO 07:49 → J7W 11:33 → JONCCHEMO 13:38
PROVIDERS: ATTEND Internal Medicine Hematology & Oncology
DX: Z51.11 Encounter for antineoplastic chemotherapy (principal); C90.00 Multiple myeloma not having achieved remission
CPT/HCPCS: 36415; 80053; 80076; 83735; 85025; 96401; J9041

== ENCOUNTER 2018-03-06 10:24 | Inpatient (IN) | payer OTHER, BC, MEDICARE ==
--- NOTE | 2018-03-06 11:02 | PDOC ---
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 Ms Ashton states that her blood pressure is always in the low 100's, but whenever she gets sick it becomes very low. She was preparing to go to a wound care appointment today when she became lightheaded, and she states that she knew her blood pressure was low. She had no other symptoms at the time and denies LOC, chest pain, headache, vision changes, SOB, palpitations, nausea/ vomiting, or any neurological symptoms. She has not had any urinary frequency, urgency, or dysuria. She does report feeling dehydrated (her mouth feels like cotton) and she states that she has not been drinking much water recently. Ms Ashton has a known RLE wound that has been followed by wound care. She was not told that it was infected, but she states that she knows it is infected because the bandages are always green when they are changed. She has not seen any purulence or thick drainage, and she states that the area is not usually red or swollen around the wound. She has the dressing changed daily with a while ointment/cream applied at dressing changes. She reports that she was on her way to the wound appointment when she became lightheaded today. Per EMS, her pressures were initially in the low 70's systolic when they arrived , HR in the 60's. She was given a 500cc bolus of IVF with improvement in her BP to around 105/60's. At this time, Ms Ashton states that she is feeling well. Past History - Past Medical History Allergies/Adverse Reactions: Allergies Allergy/AdvReac Type Severity Reaction Status Date / Time No Known Allergies Allergy Verified 03/06/18 10:46 Home Medications: Ambulatory Orders Albuterol Sulfate [Proair Hfa] 8.5 gm IH Q6H PRN 08/13/17 Ammonium Lactate Cream [Lac-Hydrin 12% Cream -] 1 applic TP DAILY 08/13/17 Atorvastatin Ca [Lipitor] 40 mg PO HS 08/13/17 Dexamethasone 20 mg PO WEEKLY 08/13/17 Docusate Sodium [Colace] 100 mg PO HS 08/13/17 Fluticasone Prop 0.05% Nasal [Flonase -] 2 spray NS DAILY 08/13/17 Gabapentin 600 mg PO DAILY 08/13/17 Lenalidomide [Revlimid] 10 mg PO DAILY 08/13/17 Levothyroxine [Synthroid -] 75 mcg PO DAILY 08/13/17 Metoprolol Succinate 12.5 mg PO DAILY 08/13/17 Pantoprazole Sodium 40 mg PO DAILY 08/13/17 Pramipexole Di-HCl [Mirapex] 0.25 mg PO HS 08/13/17 Sennosides [Senna Lax] 8.6 mg PO HS 08/13/17 Valacyclovir HCl [Valtrex] 500 mg PO DAILY 08/13/17 Warfarin Sodium [Coumadin] 5 mg PO ASDIR 08/13/17 Magnesium 400 mg PO DAILY 11/20/17 Warfarin Na [Coumadin Protocol] 4 mg PO ASDIR 11/20/17 Multivitamins [Multivit ([facility] Formulary)] 1 tab PO DAILY tab 01/04/18 Zinc Sulfate [Orazinc -] 220 mg PO DAILY 30 Days capsule 01/04/18 traMADol HCL [Ultram -] 50 mg PO Q8H PRN tablet MDD 3 01/04/18 Warfarin Na [Coumadin -] 1 mg PO ASDIR 03/06/18 Anemia: No Asthma: No Cancer: Yes (THYROID, MULTIPLE MYELOMA) Cardiac Disorders: Yes (afib/DVT) CVA: No COPD: No CHF: No Dementia: No Diabetes: Yes GI Disorders: No Disorders: No HTN: Yes Hypercholesterolemia: Yes Liver Disease: No Seizures: No Thyroid Disease: Yes (thyroid cancer, thyroidectomy done in 1999) - Surgical History Abdominal Surgery: Yes (exploratory lap) - Immunization History Immunization Up to Date: No - Suicide/Smoking/Psychosocial Hx Smoking Status: No Smoking History: Former smoker Have you smoked in the past 12 months: No Number of Cigarettes Smoked Daily: 0 If you are a former smoker, when did you quit?: 25 yrs ago Information on smoking cessation initiated: No Hx Alcohol Use: No Drug/Substance Use Hx: No Substance Use Type: None Hx Substance Use Treatment: No Review of Systems - Review of Systems Comments:: General: No fevers, no chills, no weight or appetite change, no malaise HEENT: No changes in vision, no changes in hearing, no congestion, no sore throat CV: No chest pain, no palpitations, no LE edema Pulm: No SOB, no cough, no wheezing GI: No nausea or vomiting, no change in bowel habits, no melena : No frequency, no urgency, no dysuria Musc: No back pain, no joint swelling, no recent injury. h/o RLE wound Skin: No rash, no lesions, no erythema Endo: +Thirst. No heat/cold intolerance. h/o thyroidectomy Heme: No unusual bruising or bleeding, no swollen glands. +multiple myeloma, h/ o DVT, on anticoagulation Neuro: No syncope, no numbness/tingling, no focal weakness Vasc: No claudication Psych: No recent change in mood, no SI or HI *Physical Exam - Vital Signs Last Vital Signs Temp Pulse Resp BP Pulse Ox 98.5 F 66 16 94/45 L 100 03/06/18 10:25 03/06/18 10:25 03/06/18 10:25 03/06/18 10:25 03/06/18 10:25 - Physical Exam Comments: General: Comfortable, no acute distress HEENT: PERRL, EOMI, cracked lips, dry mouth/tongue, voice normal, normal neck ROM, no LAD Cards: Irregularly irregular Pulm: Comfortable on room air, clear to auscultation bilaterally Abd: Soft, nontender, nondistended : No CVA tenderness Ext: Atraumatic. No LE edema. RLE with large wound on anterior distal mills. Approximately 10cm x 15cm, 0.5cm in depth. Base pink and clean, minimal fibrinous material around edges of wound, no significant drainage, no purulence. Wound dressing malodorous with significant green staining. Vasc: Extremities WWP. Skin: Normal color, no rashes or lesions Neuro: A&Ox3, CN grossly intact, normal speech, motor/sensory grossly intact and symmetric Psych: Mood appropriate to situation ED Treatment Course - LABORATORY CBC & Chemistry Diagram: 03/06/18 11:30 03/06/18 11:30 Medical Decision Making - Medical Decision Making 03/06/18 12:46 Pema Ashton is an 87yo woman with a PMH of a-fib and previous DVT on warfarin , hypothyroidism, multiple myeloma on chemotherapy, anemia, CHF, DM2 and with a known RLE wound who presents for hypotension to the 70's and possible RLE wound infection. - Improvement in BP to 116 systolic following 500cc fluid bolus. Appears dry on exam, additional 1L bolus ordered - Septic workup as RLE wound dressing is malodorous and with bright green drainage. CBC, CMP, trop, BCx, EKG, CXR, UA, urine culture - Vanc/zosyn for suspected infection 03/06/18 12:51 - Lactic acid 2.7 (prior to 1L bolus). Will recheck. - INR 14.14. - Will check stool guaiac given supratherapeutic INR and hypotension, though hgb at 10.1 is near baseline. - WBC normal - UA negative 03/06/18 13:26 - Glucose 36. Given apple juice. Repeat 75 - Guaiac stool sent - Spoke to Dr Wadsworth. Will admit with consults for Dr Frazier and Dr Zaman. Requests CT head, vitamin K given INR of 14, and IVF containing dextrose given hypoglycemia. 03/06/18 14:51 - BP continues to drop into the 80's despite total 2L IVF given at this point. Will give additional 500cc bolus. - Spoke to Dr Wadsworth regarding hypotension. Would like Ms Ashton to be evaluated for ICU admission. - Spoke to ICU. Will accept for admission, but no beds currently available. - Will re-evaluate as she may be appropriate for floor status if her BP remains in the normal range. Discussed with Dr Zhou. Chelly Carney PGY1 *DC/Admit/Observation/Transfer Diagnosis at time of Disposition: Wound of right lower extremity, Hypotension, Supratherapeutic INR - Discharge Dispostion Condition at time of disposition: Stable Decision to Admit order: Yes - Referrals - Patient Instructions - Post Discharge Activity
[2018-03-06] MEDS ORDERED: SODIUM CHLORIDE 0.9% 500 ML INFUS.BAG IV ONE ×2 (11:23→14:59)
[2018-03-06 11:42] LABS: VENOUS PC02 51.4 mmHg (38-52); VENOUS PH 7.32 (7.32-7.42); VENOUS PO2 19.9 mmHg (28-48)
[2018-03-06 11:45] LABS: HEMATOCRIT 31.5 % (32.4-45.2); HEMOGLOBIN 10.1 GM/dL (10.7-15.3); RBC 3.31 M/mm3 (3.60-5.2)
[2018-03-06 11:46] LABS: BASO % 0.2 % (0-2.0); EOS % 1.1 % (0-4.5); LYMPH % 2.5 % (8-40); MCH 30.4 pg (25.7-33.7); MEAN PLT VOLUME 8.6 fl (7.5-11.1); NEUT % 83.2 % (42.8-82.8); PLATELET COUNT 193 K/MM3 (134-434); RDW 21.2 % (11.6-15.6)
[2018-03-06 12:09] LABS: ACTIVATED PTT 70.8 SECONDS (25.2-36.5)
[2018-03-06 12:25] LABS: URINE APPEARANCE SLCLOUDY; URINE BILIRUBIN NEGATIVE (<2.0 mg/dL); URINE COLOR AMBER; URINE GLUCOSE (UA) NEGATIVE (NEGATIVE); URINE KETONE NEGATIVE (NEGATIVE); URINE LEUK ESTERASE NEGATIVE (NEGATIVE); URINE NITRITE NEGATIVE (NEGATIVE); URINE PROTEIN 1+ (NEGATIVE); URINE UROBILINOGEN NEGATIVE mg/dL (0.2-1.0)
[2018-03-06] MEDS ORDERED: VANCOMYCIN 1 GRAM (PRE-DOCKED) 1,000 MG/250 ML BAG IVPB ONE ×2 (12:29→12:37)
[2018-03-06] MEDS ORDERED: PIPERACILLIN/TAZOB 3.375 GM 3.375 GM in DEXTROSE 5%-WATER - 50 ML IVPB ONE (12:29)
--- NOTE | 2018-03-06 12:30 | PDOC ---
Attending Attestation - Resident Resident Name: Chelly Carney - ED Attending Attestation I have performed the following: I have examined & evaluated the patient, The case was reviewed & discussed with the resident, I agree w/resident's findings & plan, Exceptions are as noted - HPI HPI: 03/06/18 12:24 87 yo F with h/o htn hld, chronic wound right leg, followed by dr. grey, here with c/o feeling lightheaded on way to have wound check, dressing change. was found to be hypotensive by EMS. in 70's systolic. was given 500 ML ns bolus. feels improved. no cp no sob. denies cough. no abd pain. currently lives at [facility]. pcp dr jacinto. - Physicial Exam PE: 03/06/18 12:25 awake alert lungs clear bilaterally heart rrr no mrg. abd soft nt nd. ext wwp. right anterior mills wound large, foul oder. draining yellowish green dc on dressing. 2 + dp/ pt pulses. nuero alert oriented x 3. - Medical Decision Making 03/06/18 12:28 87 yo h/o htn hld right leg wound here with hypotension infected wound. differential sepsis, from wound other source such as pna or uti. anemia, dehydration renal failure. plan cbc lytes ekg trop ekg. will give iv abx. admit for hypotension . abx. Heart Score/ECG Review #1 General ECG Interpretation: Sinus Rhythm, Normal Rate (68), Normal Intervals, No acute ischemic changes - [place]: Left [place] Deviation
[2018-03-06] MEDS ORDERED: PIPERACILLIN/TAZOB 3.375 GM 3.375 GM/50 ML BAG IVPB ONE (12:37)
[2018-03-06 12:43] LABS: PROTHROMBIN TIME (PATIENT) 171.4 SEC (9.7-13.0)
[2018-03-06 12:45] LABS: INR 14.14 (0.83-1.09)
[2018-03-06 12:47] LABS: EPI CELLS RARE /HPF (FEW); URINE HYALINE CAST 11 /lpf; URINE MUCUS RARE
[2018-03-06 12:50] LABS: ALBUMIN 2.2 g/dl (3.4-5.0); ALK PHOS 64 U/L (45-117); ANION GAP 10 MMOL/L (8-16); BILIRUBIN,TOTAL 1.1 mg/dL (0.2-1); BLOOD UREA NITROGEN 20 mg/dL (7-18); CALCIUM 7.2 mg/dL (8.5-10.1); CHLORIDE 103 mmol/L (98-107); CO2 24 mmol/L (21-32); CREATININE 1.8 mg/dL (0.55-1.3); SGOT/AST 46 U/L (15-37); SGPT/ALT 38 U/L (13-61); SODIUM 137 mmol/L (136-145); TOT PROT 5.2 g/dl (6.4-8.2)
--- NOTE | 2018-03-06 12:54 | EKG ---
Test Reason : Blood Pressure : / mmHG Vent. Rate : 068 BPM Atrial Rate : 068 BPM P-R Int : 116 ms QRS Dur : 080 ms QT Int : 434 ms P-R-T Axes : 016 004 037 degrees QTc Int : 461 ms NORMAL SINUS RHYTHM POSSIBLE LEFT ATRIAL ENLARGEMENT LEFT VENTRICULAR HYPERTROPHY ABNORMAL ECG WHEN COMPARED WITH ECG OF 23-DEC-2017 09:03, PREMATURE ATRIAL COMPLEXES ARE NO LONGER PRESENT Confirmed by CLINT GUERRERO, FAN ([id number]) on 03/06/2018 12:53:44 PM Referred By: Confirmed By:FAN JARAMILLO MD
[2018-03-06] MEDS ORDERED: SODIUM CHLORIDE 0.9% 1000 ML INFUS.BAG IV ONE (12:56)
[2018-03-06 12:58] LABS: GLUCOSE,RANDOM 36 mg/dL (74-106)
[2018-03-06] MEDS ORDERED: DEXTROSE 50%-WATER 25 GM/50 ML DISP.SYRIN ONE (12:59)
[2018-03-06] MEDS ORDERED: PHYTONADIONE 10 MG/1 ML AMP IVPB ONE (13:22)
[2018-03-06] MEDS ORDERED: PHYTONADIONE 10 MG/1 ML AMP ONE (13:33)
[2018-03-06] MEDS: DEXTROSE 5%-0.45% SALINE 1,000 ML IV SCH (14:02)
--- NOTE | 2018-03-06 16:53 | CONSULT ---
- Consultation REQUESTING PROVIDER: CONSULT REQUEST: We have been asked to surgically evaluate this patient for RLE ulcer PCP:Johann Wadsworth HISTORY OF PRESENT ILLNESS: 87yo F h/o RLE venous stasis ulcer, followed by Dr. Zaman in the wound care clinic. Pt was on the way to the Wound care clinic, and had hypotensive episode and AMS. Pt was admitted to Medicine for further work up. Pt states that she has been doing the dressing changes to her leg by VNS. Pt denies any fever, chills, n/v. Pt is not the best historian and is confused on when ulcer first formed. Granddaughter states has been there since at least 4 months. PMHx: Afib, HTN, Hypothyroidism, HLD Home Medications Medication Instructions Recorded Albuterol Sulfate [Proair Hfa] 8.5 gm IH Q6H PRN 08/13/17 Ammonium Lactate Cream [Lac-Hydrin 1 applic TP DAILY 08/13/17 12% Cream -] Atorvastatin Ca [Lipitor] 40 mg PO HS 08/13/17 Dexamethasone 20 mg PO WEEKLY 08/13/17 Docusate Sodium [Colace] 100 mg PO HS 08/13/17 Fluticasone Prop 0.05% Nasal 2 spray NS DAILY 08/13/17 [Flonase -] Gabapentin 600 mg PO DAILY 08/13/17 Lenalidomide [Revlimid] 10 mg PO DAILY 08/13/17 Levothyroxine [Synthroid -] 75 mcg PO DAILY 08/13/17 Metoprolol Succinate 12.5 mg PO DAILY 08/13/17 Pantoprazole Sodium 40 mg PO DAILY 08/13/17 Pramipexole Di-HCl [Mirapex] 0.25 mg PO HS 08/13/17 Sennosides [Senna Lax] 8.6 mg PO HS 08/13/17 Valacyclovir HCl [Valtrex] 500 mg PO DAILY 08/13/17 Warfarin Sodium [Coumadin] 5 mg PO ASDIR 08/13/17 Magnesium 400 mg PO DAILY 11/20/17 Warfarin Na [Coumadin Protocol] 4 mg PO ASDIR 11/20/17 Multivitamins [Multivit ([facility] 1 tab PO DAILY tab 01/04/18 Formulary)] Zinc Sulfate [Orazinc -] 220 mg PO DAILY 30 Days capsule 01/04/18 traMADol HCL [Ultram -] 50 mg PO Q8H PRN tablet MDD 3 01/04/18 Warfarin Na [Coumadin -] 1 mg PO ASDIR 03/06/18 Allergies Allergy/AdvReac Type Severity Reaction Status Date / Time No Known Allergies Allergy Verified 03/06/18 10:46 REVIEW OF SYSTEMS: CONSTITUTIONAL: Absent: fever, chills, diaphoresis, generalized weakness PHYSICAL EXAM: GENERAL: Awake, alert, mild confusion, in no acute distress. HEAD: Normal with no signs of trauma. EYES: PERRL, sclera anicteric, conjunctiva clear. NECK: Normal ROM LOWER EXTREMITIES: RLE Dopplerable pulse, warm, well-perfused. +2 edema, 15cm x 8 cm ulceration medial maleolus, serous drainage, no erythema. NEUROLOGICAL: Normal speech, gait not observed. PSYCH: Cooperative. Good eye contact. Appropriate mood and affect. SKIN: Warm, dry, normal turgor, no rashes or lesions noted. Vital Signs Temperature 98.2 F 03/06/18 15:08 Pulse Rate 65 03/06/18 15:51 Respiratory Rate 17 03/06/18 15:51 Blood Pressure 99/54 L 03/06/18 15:51 O2 Sat by Pulse Oximetry (%) 97 03/06/18 15:51 Lab Results WBC 7.0 K/mm3 (4.0-10.0) 03/06/18 11:30 RBC 3.31 M/mm3 (3.60-5.2) L 03/06/18 11:30 Hgb 10.1 GM/dL (10.7-15.3) L 03/06/18 11:30 Hct 31.5 % (32.4-45.2) L 03/06/18 11:30 MCV 95.0 fl (80-96) 03/06/18 11:30 MCHC 32.0 g/dl (32.0-36.0) 03/06/18 11:30 RDW 21.2 % (11.6-15.6) H 03/06/18 11:30 Plt Count 193 K/MM3 (134-434) 03/06/18 11:30 Sodium 137 mmol/L (136-145) 03/06/18 11:30 Potassium 4.0 mmol/L (3.5-5.1) 03/06/18 11:30 Chloride 103 mmol/L (98-107) 03/06/18 11:30 Carbon Dioxide 24 mmol/L (21-32) 03/06/18 11:30 Anion Gap 10 MMOL/L (8-16) 03/06/18 11:30 BUN 20 mg/dL (7-18) H 03/06/18 11:30 Creatinine 1.8 mg/dL (0.55-1.3) H 03/06/18 11:30 Random Glucose 36 mg/dL (74-106) L* 03/06/18 11:30 Calcium 7.2 mg/dL (8.5-10.1) L 03/06/18 11:30 INR 14.14 (0.83-1.09) H* 03/06/18 11:30 Problem List - Problems (1) Wound of right lower extremity Assessment/Plan: Plan -compression dressing with santyl -elevate leg -follow up in Wound care clinic Code(s): S81.801A - UNSPECIFIED OPEN WOUND, RIGHT LOWER LEG, INITIAL ENCOUNTER
[2018-03-06 17:35] LABS: ANISOCYTOSIS 2+; MACROCYTOSIS 1+; OVALOCYTE 2+
[2018-03-06 17:36] LABS: PLATELET ESTIMATE ADEQUATE
--- NOTE | 2018-03-06 17:48 | CONSULT ---
Consultation: REQUESTING PROVIDER: CONSULT REQUEST: We have been asked to medically evaluate this patient for ( Septic shock now responding to IV fluids). PCP: Dr. Grimm Heme/Onc: Dr. Marie HISTORY OF PRESENT ILLNESS: Patient is an 87 year old female was brought in via EMS with the chief complaint of dizziness and weakness at the assisted living while getting ready to visit the wound care at [facility] for RLE wound dressing. As per the patient, she was going to eat breakfast and all of a sudden started feeling weak, had dizziness and nearly passed out. Then she sat and had a cup of coffee and EMS was called. On assessment by EMS, her BP was in 70's which improved to 105/60 mmHg. In the ED, patient's blood sugar was 36 mg/dl, was given some juice and her sugar improved to 75 mg/dl. In the ED, she was resuscitated with IV fluids 2.5 L with improvement in her BP but her BP is labile and becomes hypotensive without IV fluid bolus. Hence accepted in ICU for an admission for possibility of starting on pressors. At this time, her BP is 105/71 mmHg with a MAP of 70. ED physician mentioned her dressing was drenched in greenish serosanguinous fluids on arrival. But on assessment the dressing was clean as it was just changed by the surgical team. Patient seen and examined in the ED. Currently is asymptomatic. Denies chest pain, sob, cough ,palpitation, abdominal pain, nausea or vomiting, dizziness, weakness, tingling, numbness or any focal neurological deficits. Last bowel movement 2 days ago. Bladder habit normal. Appetite decreased since few days, hasn't been drinking enough water. Sleep-normal prior to her illness. Gets chemo for Multiple myeloma every week at [facility]. Last chemo was last Tuesday. Patient was recently admitted at [facility] 12/23/2017- 01/04/18 for cellulitis. Wound culture from the Right LE 02/03/18 grew Proteus, Acinetobacter, MRSA at that time. PAST MEDICAL HISTORY: Dementia, Vertigo, AFIB, HTN, HLD, GERD, Multiple myeloma (on chemo), and Diabetes Mellitus, ulcer in RLE ALLERGIES: NKDA PAST SURGICAL HISTORY: Hysterectomy SOCIAL HISTORY: Lives in [facility]. 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 Parents at a young age. No family h.o cancer. REVIEW OF SYSTEMS: CONSTITUTIONAL: Absent: fever, chills, diaphoresis, generalized weakness, malaise, loss of appetite, weight change HEENT: Absent: rhinorrhea, nasal congestion, throat pain, throat swelling, difficulty swallowing, mouth swelling, ear pain, eye pain, visual changes CARDIOVASCULAR: Absent: chest pain, syncope, palpitations, irregular heart rate, lightheadedness , peripheral edema RESPIRATORY: Absent: cough, shortness of breath, dyspnea with exertion, orthopnea, wheezing, stridor, hemoptysis GASTROINTESTINAL: Absent: abdominal pain, abdominal distension, nausea, vomiting, diarrhea, constipation, melena, hematochezia GENITOURINARY: Absent: dysuria, frequency, urgency, hesitancy, hematuria, flank pain, genital pain MUSCULOSKELETAL: Absent: myalgia, arthralgia, joint swelling, back pain, neck pain SKIN: Absent: rash, itching, pallor HEMATOLOGIC/IMMUNOLOGIC: Absent: easy bleeding, easy bruising, lymphadenopathy, frequent infections ENDOCRINE: Absent: unexplained weight gain, unexplained weight loss, heat intolerance, cold intolerance NEUROLOGIC: Present on admission: Weakness and dizziness. Absent: headache, unsteady gait, seizure, mental status changes, bladder or bowel incontinence PSYCHIATRIC: Absent: anxiety, depression, suicidal or homicidal ideation, hallucinations. PHYSICAL EXAMINATION Vital Signs - 24 hr 03/06/18 03/06/18 03/06/18 10:25 11:17 12:06 Temperature 98.5 F Pulse Rate 66 Pulse Rate [ 68 62 Apical] Respiratory 16 18 17 Rate Blood Pressure 94/45 L Blood Pressure 116/62 133/64 [Right Arm] O2 Sat by Pulse 100 98 98 Oximetry (%) 03/06/18 03/06/18 03/06/18 13:00 13:54 13:57 Temperature Pulse Rate Pulse Rate [ 62 65 66 Apical] Respiratory 17 18 18 Rate Blood Pressure Blood Pressure 106/56 L 90/50 L 98/68 [Right Arm] O2 Sat by Pulse 98 100 98 Oximetry (%) 03/06/18 03/06/18 03/06/18 14:25 15:01 15:08 Temperature 98.2 F Pulse Rate Pulse Rate [ 64 66 Apical] Respiratory 18 17 Rate Blood Pressure Blood Pressure 91/53 L 88/48 L [Right Arm] O2 Sat by Pulse 98 100 Oximetry (%) 03/06/18 03/06/18 15:24 15:51 Temperature Pulse Rate Pulse Rate [ 70 65 Apical] Respiratory 18 17 Rate Blood Pressure Blood Pressure 114/49 L 99/54 L [Right Arm] O2 Sat by Pulse 98 97 Oximetry (%) GENERAL: Elderly female, sitting in bed comfortably, Awake, alert, and fully oriented, in no acute distress. HEAD: Normal with no signs of trauma. EYES: EOM intact, no pallor or icterus. EARS, NOSE, THROAT: Ears normal. Dry mucous membranes. NECK: Supple. BREAST EXAM: No lumps or axillary lymph nodes. LUNGS: B/L breath sounds equal. No wheezes, and no crackles. No accessory muscle use. HEART: Regular rate and rhythm, normal S1 and S2 with soft systolic murmur. ABDOMEN: Soft, nontender, no organomegaly. MUSCULOSKELETAL: Normal range of motion at all joints. No bony deformities or tenderness. No CVA tenderness. UPPER EXTREMITIES: 2+ pulses, warm, well-perfused. No cyanosis. No clubbing. Cap refill <2 seconds. No peripheral edema. LEFT LOWER EXTREMITIES: 2+ pulses, warm, well-perfused. No calf tenderness. No peripheral edema. RIGHT LOWER EXTREMITIES: Dressing was clean and dry as it was just changed by the surgical team, open wound, no pus at this time. NEUROLOGICAL: Cranial nerves II-XII intact. Normal speech. Normal gait. PSYCHIATRIC: Cooperative. Good eye contact. Appropriate mood and affect. SKIN: Warm, dry, normal turgor, no rashes or lesions noted. Laboratory Results - last 24 hr 03/06/18 03/06/18 03/06/18 11:30 11:30 11:30 WBC 7.0 RBC 3.31 L Hgb 10.1 L Hct 31.5 L MCV 95.0 MCH 30.4 MCHC 32.0 RDW 21.2 H Plt Count 193 MPV 8.6 Absolute Neuts (auto) 5.8 Neutrophils % 83.2 H Lymphocytes % 2.5 L D Monocytes % 13.0 H Eosinophils % 1.1 Basophils % 0.2 Nucleated RBC % 0 Hypochromia 1+ Platelet Estimate Adequate Anisocytosis 2+ Microcytosis 1+ Macrocytosis 1+ Ovalocytes 2+ PT with INR 171.40 H INR 14.14 H* PTT (Actin FS) 70.8 H VBG pH POC VBG pCO2 POC VBG pO2 Mixed VBG HCO3 Sodium 137 Potassium 4.0 Chloride 103 Carbon Dioxide 24 Anion Gap 10 BUN 20 H Creatinine 1.8 H Creat Clearance w eGFR 26.74 POC Glucometer Random Glucose 36 L* Lactic Acid Calcium 7.2 L Total Bilirubin 1.1 H AST 46 H ALT 38 Alkaline Phosphatase 64 Troponin I 0.02 Total Protein 5.2 L Albumin 2.2 L Urine Color Urine Appearance Urine pH Ur Specific [place] Urine Protein Urine Glucose (UA) Urine Ketones Urine Blood Urine Nitrite Urine Bilirubin Urine Urobilinogen Ur Leukocyte Esterase Urine WBC (Auto) Urine RBC (Auto) Ur Epithelial Cells Hyaline Casts Urine Mucus Stool Occult Blood 03/06/18 03/06/18 03/06/18 11:30 11:33 12:00 WBC RBC Hgb Hct MCV MCH MCHC RDW Plt Count MPV Absolute Neuts (auto) Neutrophils % Lymphocytes % Monocytes % Eosinophils % Basophils % Nucleated RBC % Hypochromia Platelet Estimate Anisocytosis Microcytosis Macrocytosis Ovalocytes PT with INR INR PTT (Actin FS) VBG pH 7.32 POC VBG pCO2 51.4 POC VBG pO2 19.9 L* Mixed VBG HCO3 25.5 H Sodium Potassium Chloride Carbon Dioxide Anion Gap BUN Creatinine Creat Clearance w eGFR POC Glucometer Random Glucose Lactic Acid 2.7 H* Calcium Total Bilirubin AST ALT Alkaline Phosphatase Troponin I Total Protein Albumin Urine Color Antoinette Urine Appearance Slcloudy Urine pH 5.0 Ur Specific [place] 1.011 Urine Protein 1+ H Urine Glucose (UA) Negative Urine Ketones Negative Urine Blood Negative Urine Nitrite Negative Urine Bilirubin Negative Urine Urobilinogen Negative Ur Leukocyte Esterase Negative Urine WBC (Auto) 3 Urine RBC (Auto) 1 Ur Epithelial Cells Rare Hyaline Casts 11 Urine Mucus Rare Stool Occult Blood 03/06/18 03/06/18 03/06/18 13:07 13:20 14:42 WBC RBC Hgb Hct MCV MCH MCHC RDW Plt Count MPV Absolute Neuts (auto) Neutrophils % Lymphocytes % Monocytes % Eosinophils % Basophils % Nucleated RBC % Hypochromia Platelet Estimate Anisocytosis Microcytosis Macrocytosis Ovalocytes PT with INR INR PTT (Actin FS) VBG pH POC VBG pCO2 POC VBG pO2 Mixed VBG HCO3 Sodium Potassium Chloride Carbon Dioxide Anion Gap BUN Creatinine Creat Clearance w eGFR POC Glucometer [id number] Random Glucose Lactic Acid 1.7 Calcium Total Bilirubin AST ALT Alkaline Phosphatase Troponin I Total Protein Albumin Urine Color Urine Appearance Urine pH Ur Specific [place] Urine Protein Urine Glucose (UA) Urine Ketones Urine Blood Urine Nitrite Urine Bilirubin Urine Urobilinogen Ur Leukocyte Esterase Urine WBC (Auto) Urine RBC (Auto) Ur Epithelial Cells Hyaline Casts Urine Mucus Stool Occult Blood Negative Active Medications Generic Name Dose Route Start Last Admin Trade Name Freq PRN Reason Stop Dose Admin Acetaminophen 650 mg 03/06/18 16:01 Tylenol - PO Q6H PRN FEVER Gabapentin 600 mg 03/06/18 22:00 Neurontin - PO BID GIRISH Dextrose/Sodium Chloride 1,000 mls @ 83 mls/hr 03/06/18 13:30 03/06/18 14:02 D5-1/2ns - IV 83 mls/hr ASDIR GIRISH Administration Levothyroxine Sodium 75 mcg 03/07/18 07:00 Synthroid - PO DAILY@0700 GIRISH Pantoprazole Sodium 40 mg 03/07/18 10:00 Protonix - PO DAILY GIRISH Pramipexole Dihydrochloride 0.25 mg 03/06/18 22:00 Mirapex - PO HS GIRISH Tramadol HCl 50 mg 03/06/18 16:01 Ultram - PO Q8H PRN PAIN LEVEL 7 - 10 ASSESSMENT/PLAN: Patient is an 87 year old female was brought in via EMS with the chief complaint of dizziness and weakness at the assisted living while getting ready to visit the wound care at [facility] for RLE wound dressing was found to have septic shock now responding to IV fluids admitting in ICU. ID Septic shock likely secondary to RLE wound No other source found except for RLE wound. BP on admission systolic's to 70's, responded to 2.5 L of IV NS. Lactic acid 2.7 which improved to 1.7 Wound culture from the Right LE 02/03/18 grew Proteus, Acinetobacter, MRSA Admit in ICU (no beds available at this time) Currently on D5 1/2 NS @ 83 mls/hr Received one dose of Van and Zosyn. Vanc trough to be sent in AM. Add Meropenam, as per ID (Dr. Ray) Wound culture/Blood cultures/Urine cultures pending Contact Isolation RLE wound compression dressing with santyl; elevate leg; follow up in Wound care clinic Heme/Onc Supratherapeutic INR 14.1 on Coumadin for DVT/Afib Was given 2.5 sq Vitamin K. Hold Coumadin. Recheck INR Multiple Myeloma on chemo (last chemo Tuesday) Dr. Marie consult requested. Renal JOSSIE likely from septic shock Creatinine 1.8 (baseline 0.8 02/09) IV fluids Avoid any nephrotoxic drugs Neuro Dizziness likely secondary to hypotension- Improved CT head shows: Moderate chronic microvascular ischemic changes. Moderate atrophy. Check orthostatics. Endo Hypothyroidism (s/p thyroidectomy) Continue 75 mcg of PO synthroid FEN D5-1/2 NS @ 75 mls.hr Electrolytes to be repeated in AM Diabetic diet Prophylaxis For DVT: SCDs, has supratherpeutic INR on coumadin For GI: ON Protonix 40mg PO Daily Code Status: Full Code Dispo: Admit in ICU (awaiting bed). If blood pressure improves with IV fluids, will not need ICU, can be admitted in Tele . Dispo: We will continue to follow the patient. Thank you for this consultative opportunity. Visit type - Emergency Visit Emergency Visit: Yes ED Registration Date: 03/06/18 Care time: The patient presented to the Emergency Department on the above date and was hospitalized for further evaluation of their emergent condition. - New Patient This patient is new to me today: Yes Date on this admission: 03/06/18 - Critical Care Critical Care patient: Yes Total Critical Care Time (in minutes): 35 Critical Care Statement: The care of this patient involved high complexity decision making to prevent further life threatening deterioration of the patient 's condition and/or to evaluate & treat vital organ system(s) failure or risk of failure.
--- NOTE | 2018-03-06 17:50 | CON.ID ---
Consult Consult Specialty:: infectious disease Referred by:: dr denney Reason for Consultation:: hypotension - History of Present Illness Chief Complaint: weakness History of Present Illness: 87 yo female with PMH of multiple myeloma, HTN, afib, DVT, recently returned to assisted living after hospital admission followed by SNF she was on her way to wound care at the assisted living when she felt very weak - they took her blood pressure and it was low and she was sent to ED denies vomiting or diarrhea denies pain no abdominal or chest pain no fevers INR in Ed over 14, creatinine 1.8 received vanco/zosyn after cultures were sent lactic acid 2.7 then 1.7 apparently wound dressing on leg (has a chronic wound) was soiled and "green" by the time I saw her the surgical service and just examined the leg and redressed it and reported the wound was clean - History Source History Provided By: Patient, Family Member Limitations to Obtaining History: No Limitations - Past Medical History SENIOR APPLICATIONS DEVELOPER: Yes: Dementia, Vertigo Cardio/Vascular: Yes: AFIB, HTN, Hyperlipdemia Gastrointestinal: Yes: GERD Heme/Onc: Yes: Other (multiple myeloma) Endocrine: Yes: Diabetes Mellitus Additional Medical History: chronic leg wound RLE - Past Surgical History Additional Surgical History: thyroidectomy, exploratory lap - Alcohol/Substance Use Hx Alcohol Use: No History of Substance Use: reports: None - Smoking History Smoking history: Former smoker Have you smoked in the past 12 months: No Aproximately how many cigarettes per day: 0 If you are a former smoker, when did you quit?: 25 yrs ago - Social History Usual Living Arrangement: Assisted Living ADL: Support Services 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 History of Recent Travel: No Home Medications - Allergies Allergies/Adverse Reactions: Allergies Allergy/AdvReac Type Severity Reaction Status Date / Time No Known Allergies Allergy Verified 03/06/18 10:46 - Home Medications Home Medications: Ambulatory Orders Albuterol Sulfate [Proair Hfa] 8.5 gm IH Q6H PRN 08/13/17 Ammonium Lactate Cream [Lac-Hydrin 12% Cream -] 1 applic TP DAILY 08/13/17 Atorvastatin Ca [Lipitor] 40 mg PO HS 08/13/17 Dexamethasone 20 mg PO WEEKLY 08/13/17 Docusate Sodium [Colace] 100 mg PO HS 08/13/17 Fluticasone Prop 0.05% Nasal [Flonase -] 2 spray NS DAILY 08/13/17 Gabapentin 600 mg PO DAILY 08/13/17 Lenalidomide [Revlimid] 10 mg PO DAILY 08/13/17 Levothyroxine [Synthroid -] 75 mcg PO DAILY 08/13/17 Metoprolol Succinate 12.5 mg PO DAILY 08/13/17 Pantoprazole Sodium 40 mg PO DAILY 08/13/17 Pramipexole Di-HCl [Mirapex] 0.25 mg PO HS 08/13/17 Sennosides [Senna Lax] 8.6 mg PO HS 08/13/17 Valacyclovir HCl [Valtrex] 500 mg PO DAILY 08/13/17 Warfarin Sodium [Coumadin] 5 mg PO ASDIR 08/13/17 Magnesium 400 mg PO DAILY 11/20/17 Warfarin Na [Coumadin Protocol] 4 mg PO ASDIR 11/20/17 Multivitamins [Multivit ([facility] Formulary)] 1 tab PO DAILY tab 01/04/18 Zinc Sulfate [Orazinc -] 220 mg PO DAILY 30 Days capsule 01/04/18 traMADol HCL [Ultram -] 50 mg PO Q8H PRN tablet MDD 3 01/04/18 Warfarin Na [Coumadin -] 1 mg PO ASDIR 03/06/18 Review of Systems - Review of Systems Constitutional: reports: No Symptoms, Weakness. denies: Chills, Diaphoresis, Fever Eyes: reports: No Symptoms HENT: reports: No Symptoms. denies: Difficult Swallowing Neck: reports: No Symptoms Cardiovascular: reports: No Symptoms. denies: Chest Pain Respiratory: denies: Cough Gastrointestinal: denies: Abdominal Pain Genitourinary: denies: Burning, Discharge Physical Exam Vital Signs: Vital Signs Temperature 98.2 F 03/06/18 15:08 Pulse Rate 65 03/06/18 15:51 Respiratory Rate 17 03/06/18 15:51 Blood Pressure 99/54 L 03/06/18 15:51 O2 Sat by Pulse Oximetry (%) 97 03/06/18 15:51 Constitutional: Yes: Well Nourished, No Distress, Calm Eyes: Yes: Conjunctiva Clear HENT: Yes: Atraumatic, Normocephalic Neck: Yes: Supple, Trachea Midline Cardiovascular: Yes: Regular Rate and Rhythm Respiratory: Yes: Regular, CTA Bilaterally Gastrointestinal: Yes: Normal Bowel Sounds, Soft Extremities: Yes: Other (rle larger the left- dressing just done unable to see the RLE wound medial malleolus) Neurological: Yes: Alert Labs: CBC, BMP 03/06/18 11:30 03/06/18 11:30 UA negative cultures pending Imaging - Results Chest X-ray: Report Reviewed, Image Reviewed Assessment/Plan sepsis with hypotension , hypoglycemia and lactic acidosis, JOSSIE only source apppears to be ulcer- cxray clear, UA negative prior cultures (reviewed) with MRSA, acinetobacter, proteus given vancomycin and zosyn in ED check vancomycin level in am to redose add meropenem contact isolation d/w patient and granddaughter at bedside
[2018-03-06] MEDS: MEROPENEM 500 MG in DEXTROSE 5%-WATER 100 ML IVPB SCH (18:40)
--- NOTE | 2018-03-06 22:00 | CONSULT ---
Consult - text type - Consultation Consultation Note: Patient is an 87 year old female was brought in via EMS with the chief complaint of dizziness and weakness at the assisted living while getting ready to visit the wound care at [facility] for RLE wound dressing. g. In the ED, patient's blood sugar was 36 mg/dl, was given some juice and her sugar improved to 75 mg/ dl. In the ED, she was resuscitated with IV fluids 2.5 L with improvement in her BP but her BP is labile and becomes hypotensive without IV fluid bolus. concern foe sepsis PAST MEDICAL HISTORY: Dementia, Vertigo, AFIB, HTN, HLD, GERD, Multiple myeloma (on chemo), and Diabetes Mellitus, ulcer in RLE ALLERGIES: NKDA PAST SURGICAL HISTORY: Hysterectomy SOCIAL HISTORY: Lives in [facility] living. 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 Parents at a young age. No family h.o cancer. PHYSICAL EXAMINATION Vital Signs - 24 hr 03/06/18 03/06/18 03/06/18 10:25 11:17 12:06 Temperature 98.5 F Pulse Rate 66 Pulse Rate [ 68 62 Apical] Respiratory 16 18 17 Rate Blood Pressure 94/45 L Blood Pressure 116/62 133/64 [Right Arm] O2 Sat by Pulse 100 98 98 Oximetry (%) 03/06/18 03/06/18 03/06/18 13:00 13:54 13:57 Temperature Pulse Rate Pulse Rate [ 62 65 66 Apical] Respiratory 17 18 18 Rate Blood Pressure Blood Pressure 106/56 L 90/50 L 98/68 [Right Arm] O2 Sat by Pulse 98 100 98 Oximetry (%) 03/06/18 03/06/18 03/06/18 14:25 15:01 15:08 Temperature 98.2 F Pulse Rate Pulse Rate [ 64 66 Apical] Respiratory 18 17 Rate Blood Pressure Blood Pressure 91/53 L 88/48 L [Right Arm] O2 Sat by Pulse 98 100 Oximetry (%) 03/06/18 03/06/18 15:24 15:51 Temperature Pulse Rate Pulse Rate [ 70 65 Apical] Respiratory 18 17 Rate Blood Pressure Blood Pressure 114/49 L 99/54 L [Right Arm] O2 Sat by Pulse 98 97 Oximetry (%) Laboratory Results - last 24 hr 03/06/18 03/06/18 03/06/18 11:30 11:30 11:30 WBC 7.0 RBC 3.31 L Hgb 10.1 L Hct 31.5 L MCV 95.0 MCH 30.4 MCHC 32.0 RDW 21.2 H Plt Count 193 MPV 8.6 Absolute Neuts (auto) 5.8 Neutrophils % 83.2 H Lymphocytes % 2.5 L D Monocytes % 13.0 H Eosinophils % 1.1 Basophils % 0.2 Nucleated RBC % 0 Hypochromia 1+ Platelet Estimate Adequate Anisocytosis 2+ Microcytosis 1+ Macrocytosis 1+ Ovalocytes 2+ PT with INR 171.40 H INR 14.14 H* PTT (Actin FS) 70.8 H VBG pH POC VBG pCO2 POC VBG pO2 Mixed VBG HCO3 Sodium 137 Potassium 4.0 Chloride 103 Carbon Dioxide 24 Anion Gap 10 BUN 20 H Creatinine 1.8 H Creat Clearance w eGFR 26.74 POC Glucometer Random Glucose 36 L* Lactic Acid Calcium 7.2 L Total Bilirubin 1.1 H AST 46 H ALT 38 Alkaline Phosphatase 64 Troponin I 0.02 Total Protein 5.2 L Albumin 2.2 L Urine Color Urine Appearance Urine pH Ur Specific [place] Urine Protein Urine Glucose (UA) Urine Ketones Urine Blood Urine Nitrite Urine Bilirubin Urine Urobilinogen Ur Leukocyte Esterase Urine WBC (Auto) Urine RBC (Auto) Ur Epithelial Cells Hyaline Casts Urine Mucus Stool Occult Blood 03/06/18 03/06/18 03/06/18 11:30 11:33 12:00 WBC RBC Hgb Hct MCV MCH MCHC RDW Plt Count MPV Absolute Neuts (auto) Neutrophils % Lymphocytes % Monocytes % Eosinophils % Basophils % Nucleated RBC % Hypochromia Platelet Estimate Anisocytosis Microcytosis Macrocytosis Ovalocytes PT with INR INR PTT (Actin FS) VBG pH 7.32 POC VBG pCO2 51.4 POC VBG pO2 19.9 L* Mixed VBG HCO3 25.5 H Sodium Potassium Chloride Carbon Dioxide Anion Gap BUN Creatinine Creat Clearance w eGFR POC Glucometer Random Glucose Lactic Acid 2.7 H* Calcium Total Bilirubin AST ALT Alkaline Phosphatase Troponin I Total Protein Albumin Urine Color [place]in[place] Urine Appearance Slcloudy Urine pH 5.0 Ur Specific [place] 1.011 Urine Protein 1+ H Urine Glucose (UA) Negative Urine Ketones Negative Urine Blood Negative Urine Nitrite Negative Urine Bilirubin Negative Urine Urobilinogen Negative Ur Leukocyte Esterase Negative Urine WBC (Auto) 3 Urine RBC (Auto) 1 Ur Epithelial Cells Rare Hyaline Casts 11 Urine Mucus Rare Stool Occult Blood 03/06/18 03/06/18 03/06/18 13:07 13:20 14:42 WBC RBC Hgb Hct MCV MCH MCHC RDW Plt Count MPV Absolute Neuts (auto) Neutrophils % Lymphocytes % Monocytes % Eosinophils % Basophils % Nucleated RBC % Hypochromia Platelet Estimate Anisocytosis Microcytosis Macrocytosis Ovalocytes PT with INR INR PTT (Actin FS) VBG pH POC VBG pCO2 POC VBG pO2 Mixed VBG HCO3 Sodium Potassium Chloride Carbon Dioxide Anion Gap BUN Creatinine Creat Clearance w eGFR POC Glucometer 75.03574 Random Glucose Lactic Acid 1.7 Calcium Total Bilirubin AST ALT Alkaline Phosphatase Troponin I Total Protein Albumin Urine Color Urine Appearance Urine pH Ur Specific [place] Urine Protein Urine Glucose (UA) Urine Ketones Urine Blood Urine Nitrite Urine Bilirubin Urine Urobilinogen Ur Leukocyte Esterase Urine WBC (Auto) Urine RBC (Auto) Ur Epithelial Cells Hyaline Casts Urine Mucus Stool Occult Blood Negative Active Medications Generic Name Dose Route Start Last Admin Trade Name Freq PRN Reason Stop Dose Admin Acetaminophen 650 mg 03/06/18 16:01 Tylenol - PO Q6H PRN FEVER Gabapentin 600 mg 03/06/18 22:00 Neurontin - PO BID GIRISH Dextrose/Sodium Chloride 1,000 mls @ 83 mls/hr 03/06/18 13:30 03/06/18 14:02 D5-1/2ns - IV 83 mls/hr ASDIR GIRISH Administration Levothyroxine Sodium 75 mcg 03/07/18 07:00 Synthroid - PO DAILY@0700 GIRISH Pantoprazole Sodium 40 mg 03/07/18 10:00 Protonix - PO DAILY GIRISH Pramipexole Dihydrochloride 0.25 mg 03/06/18 22:00 Mirapex - PO HS GIRISH Tramadol HCl 50 mg 03/06/18 16:01 Ultram - PO Q8H PRN PAIN LEVEL 7 - 10 a/p 87 y/o patient with myeloma on VRD comes in with RLE wound, sepsis, supratherapeutic INR of 14 No active bleeding Received 2.5 mg vit. K/ meropenem Not neutropenic Hold revlimid/dex Supportive care--fluid/antibiotics
[2018-03-06] MEDS: GABAPENTIN 300 MG CAPSULE (FP) PO SCH (23:02)
[2018-03-06] MEDS: PRAMIPEXOLE DIHYDROCHLORIDE 0.25 MG TABLET PO SCH (23:02)
--- NOTE | 2018-03-07 06:06 | PN ---
Progress Note (short form) - Note Progress Note: RE-EVALUATION FOR ICU ADMISSION: Went to evaluate patient. She is currently Awake, Alert, Oriented to person, place and time, conversating and laughing. Patient reports right heel irritation as her foot was at the edge of the bed without support. I placed a pillow under with immediate relief VITALS were done and patient had HR in the 70's, BP 120s/80's with MAP >70, Saturating 100% on room air and Afebrile PHYSICAL EXAM: LUNGS: B/L breath sounds equal. No wheezes, and no crackles. No accessory muscle use. HEART: Regular rate and rhythm, normal S1 and S2 with soft systolic murmur. ABDOMEN: Soft, nontender, no organomegaly. UPPER EXTREMITIES:No peripheral edema. LOWER EXTREMITIES: RLE Dressing was c/d/i, open wound, no pus at this time. Patient at this time may be downgraded from the ICU to floors. Informed the ED staff. Primary team will need to decide M/S vs. Telemetry. If patient becomes hypotensive or decompensates, requiring pressure support with vasopressors, please call ICU team to re-evaluate. Regla Raygoza [id number]
[2018-03-07 07:49] LABS: HEMATOCRIT 28.7 % (32.4-45.2); HEMOGLOBIN 9.6 GM/dL (10.7-15.3); MCHC 33.6 g/dl (32.0-36.0); MEAN CELL VOLUME 92.4 fl (80-96); MEAN PLT VOLUME 8.8 fl (7.5-11.1); PLATELET COUNT 206 K/MM3 (134-434); RDW 20.4 % (11.6-15.6); WHITE BLOOD COUNT 6.6 K/mm3 (4.0-10.0)
[2018-03-07 07:53] LABS: INR 1.83 (0.83-1.09); PROTHROMBIN TIME (PATIENT) 21.7 SEC (9.7-13.0)
[2018-03-07] MEDS: MEROPENEM 500 MG in DEXTROSE 5%-WATER 100 ML IVPB SCH ×2 (08:30→20:30)
[2018-03-07] MEDS: LEVOTHYROXINE NA 75 MCG TABLET (FP) PO SCH (08:30)
[2018-03-07 08:32] LABS: ANION GAP 12 MMOL/L (8-16); BLOOD UREA NITROGEN 11 mg/dL (7-18); CHLORIDE 102 mmol/L (98-107); CO2 23 mmol/L (21-32); MAGNESIUM 1.7 mg/dL (1.8-2.4); PHOSPHOROUS 2.7 mg/dL (2.5-4.9); POTASSIUM 3.4 mmol/L (3.5-5.1); SODIUM 136 mmol/L (136-145)
[2018-03-07 09:00] LABS: CALCIUM 6.6 mg/dL (8.5-10.1); GLUCOSE,RANDOM 42 mg/dL (74-106)
[2018-03-07] MEDS: PANTOPRAZOLE 40 MG TABLET (FP) PO SCH (10:00)
[2018-03-07] MEDS: GABAPENTIN 300 MG CAPSULE (FP) PO SCH ×2 (10:00→22:10)
--- NOTE | 2018-03-07 11:58 | HP ---
Admitting History and Physical - Primary Care Physician PCP: Alejandro Grimm - Admission Chief Complaint: came in for weakness History of Present Illness: 87 yo F with h/o htn hld, chronic wound right leg, followed by dr. grey, here with c/o feeling lightheaded on way to have wound check, dressing change. was found to be hypotensive by EMS. in 70's systolic. was given 500 ML ns bolus. feels improved. no cp no sob. denies cough. no abd pain. currently lives at [facility]. . As per the patient, she was going to eat breakfast and all of a sudden started feeling weak, had dizziness and nearly passed out. Then she sat and had a cup of coffee and EMS was called. On assessment by EMS, her BP was in 70's which improved to 105/60 mmHg. In the ED, patient's blood sugar was 36 mg/dl, was given some juice and her sugar improved to 75 mg/dl. In the ED , she was resuscitated with IV fluids 2.5 L with improvement in her BP but her BP is labile and becomes hypotensive without IV fluid bolus. patient was evaluated by ICU now after fluid resuscitation BP much improved and down graded to med surg supratherapeutic INR got vitamin K got vanco and zosyn and ivf - Past Medical History CAREER BASED INTERVENTION COORDINATOR: Yes: Dementia, Vertigo Cardiovascular: Yes: AFIB, HTN, Hyperlipdemia Gastrointestinal: Yes: GERD Heme/Onc: Yes: Other (multiple myeloma) Endocrine: Yes: Diabetes Mellitus - Past Surgical History Past Surgical History: Yes: None (no significant history) - Smoking History Smoking history: Former smoker Have you smoked in the past 12 months: No Aproximately how many cigarettes per day: 0 If you are a former smoker, when did you quit?: 25 yrs ago - Alcohol/Substance Use Hx Alcohol Use: No History of Substance Use: reports: None - Social History ADL: Support Services 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 History of Recent Travel: No Home Medications - Allergies Allergies/Adverse Reactions: Allergies Allergy/AdvReac Type Severity Reaction Status Date / Time No Known Allergies Allergy Verified 03/06/18 10:46 - Home Medications Home Medications: Ambulatory Orders Albuterol Sulfate [Proair Hfa] 8.5 gm IH Q6H PRN 08/13/17 Ammonium Lactate Cream [Lac-Hydrin 12% Cream -] 1 applic TP DAILY 08/13/17 Atorvastatin Ca [Lipitor] 40 mg PO HS 08/13/17 Dexamethasone 20 mg PO WEEKLY 08/13/17 Docusate Sodium [Colace] 100 mg PO HS 08/13/17 Fluticasone Prop 0.05% Nasal [Flonase -] 2 spray NS DAILY 08/13/17 Gabapentin 600 mg PO DAILY 08/13/17 Lenalidomide [Revlimid] 10 mg PO DAILY 08/13/17 Levothyroxine [Synthroid -] 75 mcg PO DAILY 08/13/17 Metoprolol Succinate 12.5 mg PO DAILY 08/13/17 Pantoprazole Sodium 40 mg PO DAILY 08/13/17 Pramipexole Di-HCl [Mirapex] 0.25 mg PO HS 08/13/17 Sennosides [Senna Lax] 8.6 mg PO HS 08/13/17 Valacyclovir HCl [Valtrex] 500 mg PO DAILY 08/13/17 Warfarin Sodium [Coumadin] 5 mg PO ASDIR 08/13/17 Magnesium 400 mg PO DAILY 11/20/17 Warfarin Na [Coumadin Protocol] 4 mg PO ASDIR 11/20/17 Multivitamins [Multivit ([facility] Formulary)] 1 tab PO DAILY tab 01/04/18 Zinc Sulfate [Orazinc -] 220 mg PO DAILY 30 Days capsule 01/04/18 traMADol HCL [Ultram -] 50 mg PO Q8H PRN tablet MDD 3 01/04/18 Warfarin Na [Coumadin -] 1 mg PO ASDIR 03/06/18 Review of Systems - Review of Systems Respiratory: reports: No Symptoms Gastrointestinal: reports: No Symptoms Genitourinary: reports: No Symptoms Integumentary: reports: Wound Physical Examination Vital Signs: Vital Signs Temperature 98.4 F 03/06/18 18:26 Pulse Rate 81 03/07/18 08:30 Respiratory Rate 25 H 03/07/18 08:30 Blood Pressure 140/61 03/07/18 08:30 O2 Sat by Pulse Oximetry (%) 99 03/07/18 05:30 Constitutional: Yes: Calm Cardiovascular: Yes: Regular Rate and Rhythm, S1, S2 Respiratory: Yes: CTA Bilaterally Gastrointestinal: Yes: Normal Bowel Sounds, Soft Wound/Incision: Yes: Other (wound seen pink base) Labs: CBC, BMP 03/07/18 06:15 11/13/18 06:15 Imaging - Results Cat Scan: Report Reviewed (no mass no infarct) Problem List - Problems (1) Wound of right lower extremity Assessment/Plan: seen by surgical team collagenase meropenem Code(s): S81.801A - UNSPECIFIED OPEN WOUND, RIGHT LOWER LEG, INITIAL ENCOUNTER (2) Afib Assessment/Plan: INR imprved s/p vitamin K couamdin BB not given intially bc of low BP- HR is controlled coumadin 2 mg Code(s): I48.91 - UNSPECIFIED ATRIAL FIBRILLATION (3) Supratherapeutic INR Assessment/Plan: s/p vitamin K now improved Code(s): R79.1 - ABNORMAL COAGULATION PROFILE (4) Hypotension Assessment/Plan: IVF now BP improved lactic acid 2.7 now normal and Cr 1.8 is now 1.0 s/p ivf Microbiology 03/06/18 12:00 Urine - Urine Clean Catch Urine Culture - Final NO GROWTH OBTAINED 03/06/18 11:35 Blood - Peripheral Venous Blood Culture - Preliminary NO GROWTH OBTAINED AFTER 24 HOURS, INCUBATION TO CONTINUE FOR 4 DAYS. 03/06/18 11:30 Blood - Peripheral Venous Blood Culture - Preliminary NO GROWTH OBTAINED AFTER 24 HOURS, INCUBATION TO CONTINUE FOR 4 DAYS. 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
[2018-03-07] MEDS ORDERED: MAGNESIUM SULF 50% (8.12 MEQ/2 ML-1 GM VIAL) IVPB ONE (12:31)
[2018-03-07] MEDS ORDERED: POTASSIUM CHLORIDE ORAL LIQUID 20 MEQ/15 ML PO ONE (12:47)
[2018-03-07] MEDS ORDERED: MAGNESIUM 1GM/D5W - 1 GM/100 ML IVPB IVPB ONE (13:12)
[2018-03-07] MEDS: DEXTROSE 5%-0.45% SALINE 1,000 ML IV SCH (13:30)
--- NOTE | 2018-03-07 14:34 | PN ---
Progress Note (short form) - Note Progress Note: Patient seen and examined at bedside in the ER Feels better at this time Denies episodes of bleeding Vital Signs Temperature 98.4 F 03/06/18 18:26 Pulse Rate 81 03/07/18 08:30 Respiratory Rate 25 H 03/07/18 08:30 Blood Pressure 140/61 03/07/18 08:30 O2 Sat by Pulse Oximetry (%) 99 03/07/18 05:30 PE: NAD lying in bed RRR S1 S2 3/6 murmur heard at RUSB Soft non tender non distended RLE distal mills is dressed. Foul smelling wound with fibrinous exudate 03/07/18 03/07/18 03/07/18 06:15 06:15 06:15 WBC 6.6 RBC 3.10 L Hgb 9.6 L Hct 28.7 L MCV 92.4 MCHC 33.6 RDW 20.4 H Plt Count 206 INR 1.83 H Sodium 136 Potassium 3.4 L Chloride 102 Carbon Dioxide 23 Anion Gap 12 BUN 11 Creatinine 1.0 03/06/18 11:30 Blood Culture - Preliminary Blood - Peripheral Venous NO GROWTH OBTAINED AFTER 24 HOURS, INCUBATION TO CONTINUE FOR 4 DAYS. 03/06/18 11:35 Blood Culture - Preliminary Blood - Peripheral Venous NO GROWTH OBTAINED AFTER 24 HOURS, INCUBATION TO CONTINUE FOR 4 DAYS. 03/06/18 12:00 Urine Culture - Final Urine - Urine Clean Catch NO GROWTH OBTAINED A/P 87M with multiple medical problems including multiple myeloma presents to the ER with hypotension hypoglycemia and weakness. Problem List: Multiple myeloma cellulitis of right lower extremity Supratherapeutic INR-Resolved HTN DM HLD Vertigo GERD Chronic RLE wound Dementia hypothyroidism A.fib History of DVT hypocalcemia JOSSIE-resolved Lactic acidosis-Resolved Plan: Patient is s/p 2.5mg IVPB of vitamin K INR now 1.83 from 14.14 on admission continue to monitor coags Patient restarted on coumadin by primary team at lower dose Dexamethasone and Revlimid on hold ABx per ID for cellulitis PT consult Dr. Zaman to see patient (patient sees him as outpatient for hroni RLE wound) will follow
[2018-03-07] MEDS ORDERED: POTASSIUM CHLORIDE ORAL LIQUID 20 MEQ/15 ML ONE (15:34)
--- NOTE | 2018-03-07 17:41 | PN ---
Progress Note (short form) - Note Progress Note: awake and alert Vital Signs Period Temp Pulse Resp BP Sys/Ferrer Pulse Ox Last 24 Hr 98.4 F 70-97 17-28 87-140/43-86 97-99 cor-rrr lungs decreased bs at bases abd soft,nt ext large ulcer RLE- clean, no drainage CBC, BMP 03/07/18 06:15 03/07/18 06:15 Microbiology 03/06/18 11:30 Blood - Peripheral Venous Blood Culture - Preliminary NO GROWTH OBTAINED AFTER 24 HOURS, INCUBATION TO CONTINUE FOR 4 DAYS. 03/06/18 11:35 Blood - Peripheral Venous Blood Culture - Preliminary NO GROWTH OBTAINED AFTER 24 HOURS, INCUBATION TO CONTINUE FOR 4 DAYS. 03/06/18 12:00 Urine - Urine Clean Catch Urine Culture - Final NO GROWTH OBTAINED a/p hypoglycemia- unexplained doubt sepsis hypotension and renal function improved with IVF check am cortisol plan to d/c antibiotics in am if cultures are negative leg wound is clean
[2018-03-07] MEDS ORDERED: VANCOMYCIN 1 GRAM (PRE-DOCKED) 1,000 MG/250 ML BAG IVPB ONE ×2 (17:50→18:56)
[2018-03-07] MEDS ORDERED: WARFARIN NA 1 MG TABLET (FP) ONE (18:59)
[2018-03-07] MEDS: WARFARIN NA 2 MG TABLET (UD) PO SCH (19:09)
[2018-03-07] MEDS ORDERED: ACETAMINOPHEN 325 MG TABLET (FP) ONE (20:28)
[2018-03-07] MEDS: ACETAMINOPHEN 325 MG TABLET (FP) PO PRN (20:30)
[2018-03-07] MEDS: PRAMIPEXOLE DIHYDROCHLORIDE 0.25 MG TABLET PO SCH (22:10)
[2018-03-08] MEDS ORDERED: HEMOQUE TEST 1 EACH EACH ONE (01:55)
[2018-03-08] MEDS: DEXTROSE 5%-0.45% SALINE 1,000 ML IV SCH ×2 (02:45→16:10)
[2018-03-08] MEDS: LEVOTHYROXINE NA 75 MCG TABLET (FP) PO SCH (06:07)
[2018-03-08] MEDS: MEROPENEM 500 MG in DEXTROSE 5%-WATER 100 ML IVPB SCH ×2 (06:07→19:53)
[2018-03-08 07:30] LABS: BASO % 0.2 % (0-2.0); EOS % 1.5 % (0-4.5); HEMATOCRIT 31.6 % (32.4-45.2); HEMOGLOBIN 10.3 GM/dL (10.7-15.3); LYMPH % 3.2 % (8-40); MCH 30.5 pg (25.7-33.7); MCHC 32.6 g/dl (32.0-36.0); MEAN CELL VOLUME 93.5 fl (80-96); MEAN PLT VOLUME 8.9 fl (7.5-11.1); MONO % 12.1 % (3.8-10.2); PLATELET COUNT 244 K/MM3 (134-434); RBC 3.38 M/mm3 (3.60-5.2); RDW 20.4 % (11.6-15.6); WHITE BLOOD COUNT 5.9 K/mm3 (4.0-10.0)
[2018-03-08 07:39] LABS: INR 2.49 (0.83-1.09); PROTHROMBIN TIME (PATIENT) 29.6 SEC (9.7-13.0)
[2018-03-08 08:28] LABS: ALBUMIN 1.9 g/dl (3.4-5.0); ALK PHOS 93 U/L (45-117); ANION GAP 9 MMOL/L (8-16); BILIRUBIN,TOTAL 0.7 mg/dL (0.2-1); BLOOD UREA NITROGEN 6 mg/dL (7-18); CHLORIDE 103 mmol/L (98-107); CO2 26 mmol/L (21-32); CREATININE 0.8 mg/dL (0.55-1.3); GLUCOSE,RANDOM 87 mg/dL (74-106); MAGNESIUM 1.6 mg/dL (1.8-2.4); POTASSIUM 3.7 mmol/L (3.5-5.1); SGOT/AST 64 U/L (15-37); SGPT/ALT 57 U/L (13-61); SODIUM 137 mmol/L (136-145); TOT PROT 5.1 g/dl (6.4-8.2)
[2018-03-08] MEDS ORDERED: PT OWN MED DRAWER 7, Y5N ONE ×4 (08:43→21:47)
[2018-03-08] MEDS: ACETAMINOPHEN 325 MG TABLET (FP) PO PRN (09:04)
[2018-03-08] MEDS: GABAPENTIN 300 MG CAPSULE (FP) PO SCH ×2 (09:05→21:59)
[2018-03-08] MEDS: PANTOPRAZOLE 40 MG TABLET (FP) PO SCH (09:05)
--- NOTE | 2018-03-08 09:57 | PN ---
Progress Note, Physician Chief Complaint: EVENTS AND NOTES REVIEWED AWAKE ALERT COMFORTABLE - Current Medication List Current Medications: Active Medications Acetaminophen (Tylenol -) 650 mg PO Q6H PRN PRN Reason: FEVER Last Admin: 03/08/18 09:04 Dose: 650 mg Gabapentin (Neurontin -) 600 mg PO BID [facility] Last Admin: 03/08/18 09:05 Dose: 600 mg Dextrose/Sodium Chloride (D5-1/2ns -) 1,000 mls @ 83 mls/hr IV ASDIR [facility] Last Admin: 03/08/18 02:45 Dose: 83 mls/hr Meropenem 500 mg/ Dextrose 100 mls @ 200 mls/hr IVPB Q12H [facility] Last Admin: 03/08/18 06:07 Dose: 200 mls/hr Levothyroxine Sodium (Synthroid -) 75 mcg PO DAILY@0700 [facility] Last Admin: 03/08/18 06:07 Dose: 75 mcg Pantoprazole Sodium (Protonix -) 40 mg PO DAILY [facility] Last Admin: 03/08/18 09:05 Dose: 40 mg Pramipexole Dihydrochloride (Mirapex -) 0.25 mg PO HS [facility] Last Admin: 03/07/18 22:10 Dose: 0.25 mg Tramadol HCl (Ultram -) 50 mg PO Q8H PRN PRN Reason: PAIN LEVEL 7 - 10 Warfarin Sodium (Coumadin -) 2 mg PO DAILY@1800 [facility] Last Admin: 03/07/18 19:09 Dose: 2 mg - Objective Vital Signs: Vital Signs Temperature 98.4 F 03/08/18 02:45 Pulse Rate 89 03/08/18 02:45 Respiratory Rate 18 03/08/18 02:45 Blood Pressure 143/69 03/08/18 02:45 O2 Sat by Pulse Oximetry (%) 98 03/08/18 04:00 Constitutional: Yes: Mild Distress Eyes: Yes: WNL HENT: Yes: WNL Neck: Yes: WNL Cardiovascular: Yes: WNL Respiratory: Yes: WNL Gastrointestinal: Yes: WNL Genitourinary: Yes: WNL Musculoskeletal: Yes: WNL Extremities: Yes: Deformity Edema: No Peripheral Pulses WNL: Yes Integumentary: Yes: Pressure Ulcer Wound/Incision: Yes: Dressing Dry and Intact, Excoriated, Unapproximated Neurological: Yes: Pre-Existing Deficit ...Motor Strength: RLE Psychiatric: Yes: WNL Labs: CBC, BMP 03/08/18 06:30 03/08/18 06:30 INR, PTT INR 2.49 (0.83-1.09) H 03/08/18 06:30 Problem List - Problems (1) Electrolyte abnormality Code(s): E87.8 - OTH DISORDERS OF ELECTROLYTE AND FLUID BALANCE, NEC (2) Hypercoagulable state Code(s): D68.59 - OTHER PRIMARY THROMBOPHILIA (3) Hypotension Code(s): I95.9 - HYPOTENSION, UNSPECIFIED (4) Supratherapeutic INR Code(s): R79.1 - ABNORMAL COAGULATION PROFILE (5) Wound of right lower extremity Code(s): S81.801A - UNSPECIFIED OPEN WOUND, RIGHT LOWER LEG, INITIAL ENCOUNTER (6) Afib Code(s): I48.91 - UNSPECIFIED ATRIAL FIBRILLATION (7) Anemia Code(s): D64.9 - ANEMIA, UNSPECIFIED Qualifiers: Anemia type: B12 deficiency 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
--- NOTE | 2018-03-08 15:32 | PN ---
Progress Note (short form) - Note Progress Note: Patient seen and examined at bedside in the ER Feels better today Vital Signs Temperature 98.1 F 03/08/18 14:00 Pulse Rate 72 03/08/18 14:00 Respiratory Rate 18 03/08/18 14:00 Blood Pressure 119/85 03/08/18 14:00 O2 Sat by Pulse Oximetry (%) 100 03/08/18 09:00 PE: NAD lying in bed RRR S1 S2 3/6 murmur heard at RUSB Soft non tender non distended RLE distal mills is dressed. wound with fibrinous exudate 03/07/18 03/08/18 03/08/18 06:15 06:30 06:30 WBC 5.9 RBC 3.38 L Hgb 10.3 L Hct 31.6 L MCV 93.5 MCHC 32.6 RDW 20.4 H Plt Count 244 Neutrophils % 83.0 H Lymphocytes % 3.2 L D Monocytes % 12.1 H Eosinophils % 1.5 Basophils % 0.2 INR 2.49 H Sodium 136 Potassium 3.4 L Chloride 102 Carbon Dioxide 23 Anion Gap 12 BUN 11 Creatinine 1.0 03/08/18 06:30 WBC RBC Hgb Hct MCV MCHC RDW Plt Count Neutrophils % Lymphocytes % Monocytes % Eosinophils % Basophils % INR Sodium 137 Potassium 3.7 Chloride 103 Carbon Dioxide 26 Anion Gap 9 BUN 6 L Creatinine 0.8 03/06/18 11:30 Blood Culture - Preliminary Blood - Peripheral Venous NO GROWTH OBTAINED AFTER 48 HOURS, INCUBATION TO CONTINUE FOR 3 DAYS. 03/06/18 11:35 Blood Culture - Preliminary Blood - Peripheral Venous NO GROWTH OBTAINED AFTER 48 HOURS, INCUBATION TO CONTINUE FOR 3 DAYS. 03/06/18 12:00 Urine Culture - Final Urine - Urine Clean Catch NO GROWTH OBTAINED A/P 87F with multiple medical problems including multiple myeloma presents to the ER with hypotension hypoglycemia and weakness. Problem List: Multiple myeloma cellulitis of right lower extremity Supratherapeutic INR-Resolved HTN DM HLD Vertigo GERD Chronic RLE wound Dementia hypothyroidism A.fib History of DVT hypocalcemia JOSSIE-resolved Lactic acidosis-Resolved Plan: Patient is s/p 2.5mg IVPB of vitamin K Continue coumadin continue to monitor coags INR 2.49 today Patient restarted on coumadin by primary team at lower dose Dexamethasone and Revlimid on hold ABx per ID for cellulitis PT consult Dr. Zaman to see patient (patient sees him as outpatient for hroni RLE wound) Cultures negative will follow
--- NOTE | 2018-03-08 16:29 | PN ---
Progress Note (short form) - Note Progress Note: awake and alert clinically much improved Vital Signs Period Temp Pulse Resp BP Sys/Ferrer Pulse Ox Last 24 Hr 98.1 F-98.4 F 71-96 18-21 115-154/46-88 98-100 cor-rrr lungs clear abd soft,nt ext ulcer RLE, foulsmelling, +yellow drainage CBC, BMP 03/08/18 06:30 03/08/18 06:30 Microbiology 03/06/18 11:30 Blood - Peripheral Venous Blood Culture - Preliminary NO GROWTH OBTAINED AFTER 48 HOURS, INCUBATION TO CONTINUE FOR 3 DAYS. 03/06/18 11:35 Blood - Peripheral Venous Blood Culture - Preliminary NO GROWTH OBTAINED AFTER 48 HOURS, INCUBATION TO CONTINUE FOR 3 DAYS. 03/06/18 12:00 Urine - Urine Clean Catch Urine Culture - Final NO GROWTH OBTAINED a/p hypoglycemia- unexplained, improved leg ulcers with drainage- prior cultures with resistant organisms will repeat cultures will continue vanco/meropenem based on prior sensitivities history of myeloma
[2018-03-08] MEDS: VANCOMYCIN 1 GRAM (PRE-DOCKED) 1,000 MG/250 ML BAG IVPB SCH (16:45)
[2018-03-08] MEDS: traMADol HCL 50 MG TABLET PO PRN (16:51)
[2018-03-08] MEDS ORDERED: MAGNESIUM SULF 50% (8.12 MEQ/2 ML-1 GM VIAL) IVPB ONE (17:12)
[2018-03-08] MEDS: AMINO ACIDS/PROTEIN HYDROLYS 30 ML LIQUID.PKT PO SCH (18:10)
[2018-03-08] MEDS: WARFARIN NA 2 MG TABLET (UD) PO SCH (18:10)
[2018-03-08] MEDS ORDERED: CALCIUM GLUCONATE 10% - 1,000 MG/10 ML VIAL IVPB ONE (19:30)
--- NOTE | 2018-03-08 21:56 | PN ---
Progress Note (short form) - Note Progress Note: Patient seen and examined Admitted for RLE cellulitis and wound infection Had previously discussed with wound care team and it was felt patient could be maintained on her chemotherapy of velcade, dex, and revlimid Will hold for now Last Vital Signs Temp Pulse Resp BP Pulse Ox 100.9 F H 94 H 20 137/67 100 03/08/18 18:00 03/08/18 18:00 03/08/18 18:00 03/08/18 18:00 03/08/18 09:00 HEENT: EBEN, EOM Intact Oropharynx: No thrush, No mucositis, dentures Breasts: Without masses Cor: RSR, No murmurs, No gallops Lungs: scattered rhonchi Abd: Soft, Normal bowel sounds, No organomegaly Ext:RLE dressed CBC, BMP 03/08/18 06:30 03/08/18 06:30 Current Medications Generic Name Dose Route Start Last Admin Trade Name Freq PRN Reason Stop Dose Admin Acetaminophen 650 mg 03/06/18 16:01 03/08/18 09:04 Tylenol - PO 650 mg Q6H PRN Administration FEVER Amino Acids 30 ml 03/08/18 17:30 03/08/18 18:10 Prosource No Carb Liquid Pkt PO 30 ml BID@0800,1730 [facility] Administration Ascorbic Acid 250 mg 03/09/18 10:00 Vitamin C - PO DAILY G[facility] Calcium Carbonate 1,000 mg 03/09/18 10:00 Os-Severo 500mg - PO DAILY G[facility] Gabapentin 600 mg 03/06/18 22:00 03/08/18 09:05 Neurontin - PO 600 mg BID [facility] Administration Dextrose/Sodium Chloride 1,000 mls @ 83 mls/hr 03/06/18 13:30 03/08/18 16:10 D5-1/2ns - IV 83 mls/hr ASDIR [facility] Administration Vancomycin HCl 1,000 mg in 250 mls @ 166.667 mls/hr 03/08/18 16:30 03/08/18 16:45 Vancomycin (Pre-Docked) IVPB 166.667 mls/hr Q24H [facility] Administration Protocol Meropenem 500 mg/ Dextrose 100 mls @ 200 mls/hr 03/08/18 18:00 03/08/18 19:53 IVPB 200 mls/hr Q8H-IV [facility] Administration Levothyroxine Sodium 75 mcg 03/07/18 07:00 03/08/18 06:07 Synthroid - PO 75 mcg DAILY@0700 [facility] Administration Pantoprazole Sodium 40 mg 03/07/18 10:00 03/08/18 09:05 Protonix - PO 40 mg DAILY [facility] Administration Pramipexole Dihydrochloride 0.25 mg 03/06/18 22:00 03/07/18 22:10 Mirapex - PO 0.25 mg HS [facility] Administration Tramadol HCl 50 mg 03/06/18 16:01 03/08/18 16:51 Ultram - PO 50 mg Q8H PRN Administration PAIN LEVEL 7 - 10 Warfarin Sodium 2 mg 03/07/18 18:00 03/08/18 18:10 Coumadin - PO 2 mg DAILY@1800 [facility] Administration Zinc Sulfate 220 mg 03/09/18 10:00 Orazinc - PO DAILY [facility] Impression: Myeloma not in remission RLE cellulitis A /C-s/p LE DVT For now, antibiotics and wound care follow up. Hold VDR.
[2018-03-08] MEDS: PRAMIPEXOLE DIHYDROCHLORIDE 0.25 MG TABLET PO SCH (21:59)
--- NOTE | 2018-03-09 00:07 | CONSULT ---
Consult Consult Specialty:: endocrine Referred by:: dr.saba wilson Reason for Consultation:: hypothyroidism. hypocalcemia - History of Present Illness Chief Complaint: very weak forgetful History of Present Illness: 87 yo F with h/o hypothyroidism sp thyroidectomy,thyroid cancer,multiple myloma , htn hld, chronic wound right leg, followed by dr. grey, here with c/o feeling lightheaded on way to have wound check, dressing change. was found to be hypotensive by EMS. in 70's systolic. was given 500 ML ns bolus. no cp no sob. denies cough. no abd pain. currently lives at [facility]. . As per the patient, she was going to eat breakfast and all of a sudden started feeling weak, had dizziness and nearly passed out. she has been admitted for near syncope and hypotension,hypocalcemia and hypovolemia. - Past Medical History SHAKER OUT: Yes: Dementia, Vertigo Cardio/Vascular: Yes: AFIB, HTN, Hyperlipdemia Gastrointestinal: Yes: GERD Endocrine: Yes: Diabetes Mellitus Additional Medical History: chronic leg wound RLE - Past Surgical History Past Surgical History: Yes: None (no significant history) Additional Surgical History: thyroidectomy, exploratory lap - Alcohol/Substance Use Hx Alcohol Use: No History of Substance Use: reports: None - Smoking History Smoking history: Former smoker Have you smoked in the past 12 months: No Aproximately how many cigarettes per day: 0 If you are a former smoker, when did you quit?: 25 yrs ago - Social History Usual Living Arrangement: Assisted Living ADL: Support Services 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 History of Recent Travel: No Home Medications - Allergies Allergies/Adverse Reactions: Allergies Allergy/AdvReac Type Severity Reaction Status Date / Time No Known Allergies Allergy Verified 03/06/18 10:46 - Home Medications Home Medications: Ambulatory Orders Albuterol Sulfate [Proair Hfa] 8.5 gm IH Q6H PRN 08/13/17 Ammonium Lactate Cream [Lac-Hydrin 12% Cream -] 1 applic TP DAILY 08/13/17 Atorvastatin Ca [Lipitor] 40 mg PO HS 08/13/17 Dexamethasone 20 mg PO WEEKLY 08/13/17 Docusate Sodium [Colace] 100 mg PO HS 08/13/17 Fluticasone Prop 0.05% Nasal [Flonase -] 2 spray NS DAILY 08/13/17 Gabapentin 600 mg PO DAILY 08/13/17 Lenalidomide [Revlimid] 10 mg PO DAILY 08/13/17 Levothyroxine [Synthroid -] 75 mcg PO DAILY 08/13/17 Metoprolol Succinate 12.5 mg PO DAILY 08/13/17 Pantoprazole Sodium 40 mg PO DAILY 08/13/17 Pramipexole Di-HCl [Mirapex] 0.25 mg PO HS 08/13/17 Sennosides [Senna Lax] 8.6 mg PO HS 08/13/17 Valacyclovir HCl [Valtrex] 500 mg PO DAILY 08/13/17 Warfarin Sodium [Coumadin] 5 mg PO ASDIR 08/13/17 Magnesium 400 mg PO DAILY 11/20/17 Warfarin Na [Coumadin Protocol] 4 mg PO ASDIR 11/20/17 Multivitamins [Multivit ([facility] Formulary)] 1 tab PO DAILY tab 01/04/18 Zinc Sulfate [Orazinc -] 220 mg PO DAILY 30 Days capsule 01/04/18 traMADol HCL [Ultram -] 50 mg PO Q8H PRN tablet MDD 3 01/04/18 Warfarin Na [Coumadin -] 1 mg PO ASDIR 03/06/18 Review of Systems - Review of Systems Constitutional: reports: Loss of Appetite, Weakness Eyes: reports: Blurred Vision HENT: reports: No Symptoms Neck: reports: No Symptoms Cardiovascular: reports: Shortness of Breath Respiratory: reports: Exercise Intolerance, SOB on Exertion Gastrointestinal: reports: Bloating, Nausea Breasts: reports: No Symptoms Reported Musculoskeletal: reports: Muscle Cramps, Muscle Weakness Integumentary: reports: Wound Endocrine: reports: Unexplained Weight Loss Physical Exam Vital Signs: Vital Signs Temperature 100.9 F H 03/08/18 18:00 Pulse Rate 94 H 03/08/18 18:00 Respiratory Rate 20 03/08/18 18:00 Blood Pressure 137/67 03/08/18 18:00 O2 Sat by Pulse Oximetry (%) 100 03/08/18 09:00 Constitutional: Yes: Anxious Eyes: Yes: EOM Intact HENT: Yes: Normocephalic Neck: Yes: Trachea Midline Cardiovascular: Yes: Regular Rate and Rhythm Respiratory: Yes: CTA Bilaterally Gastrointestinal: Yes: Normal Bowel Sounds ...Rectal Exam: Yes: Deferred Renal/: Yes: WNL Musculoskeletal: Yes: Muscle Weakness Wound/Incision: Yes: Clean/Dry Neurological: Yes: Alert, Oriented, Numbness, Tingling, Weakness Labs: CBC, BMP 03/08/18 06:30 03/08/18 06:30 Problem List - Problems (1) Hypothyroidism associated with surgical procedure Code(s): E89.0 - POSTPROCEDURAL HYPOTHYROIDISM (2) Electrolyte abnormality Code(s): E87.8 - OTH DISORDERS OF ELECTROLYTE AND FLUID BALANCE, NEC (3) Hypercoagulable state Code(s): D68.59 - OTHER PRIMARY THROMBOPHILIA (4) Hypotension Code(s): I95.9 - HYPOTENSION, UNSPECIFIED (5) Supratherapeutic INR Code(s): R79.1 - ABNORMAL COAGULATION PROFILE (6) Wound of right lower extremity Code(s): S81.801A - UNSPECIFIED OPEN WOUND, RIGHT LOWER LEG, INITIAL ENCOUNTER (7) Anemia Code(s): D64.9 - ANEMIA, UNSPECIFIED Qualifiers: Anemia type: B12 deficiency 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6 L* Magnesium 1.7 L AST Total Protein Albumin 2.0 L TSH 03/08/18 06:30 RBC Hgb Hct RDW Neutrophils % Lymphocytes % Monocytes % PT with INR INR Potassium BUN 6 L Random Glucose Calcium 6.0 L* Magnesium 1.6 L AST 64 H Total Protein 5.1 L Albumin 1.9 L TSH 7.06 H Laboratory Results - last 24 hr 03/07/18 03/08/18 03/08/18 06:15 02:01 06:30 WBC RBC Hgb Hct MCV MCH MCHC RDW Plt Count MPV Absolute Neuts (auto) Neutrophils % Lymphocytes % Monocytes % Eosinophils % Basophils % Nucleated RBC % PT with INR 29.60 H INR 2.49 H Sodium 136 Potassium 3.4 L Chloride 102 Carbon Dioxide 23 Anion Gap 12 BUN 11 Creatinine 1.0 Creat Clearance w eGFR 52.69 POC Glucometer 94.07818 Random Glucose 42 L* Calcium 6.6 L* Phosphorus 2.7 Magnesium 1.7 L Total Bilirubin AST ALT Alkaline Phosphatase Total Protein Albumin 2.0 L TSH 03/08/18 03/08/18 06:30 06:30 WBC 5.9 RBC 3.38 L Hgb 10.3 L Hct 31.6 L MCV 93.5 MCH 30.5 MCHC 32.6 RDW 20.4 H Plt Count 244 MPV 8.9 Absolute Neuts (auto) 4.9 Neutrophils % 83.0 H Lymphocytes % 3.2 L D Monocytes % 12.1 H Eosinophils % 1.5 Basophils % 0.2 Nucleated RBC % 0 PT with INR INR Sodium 137 Potassium 3.7 Chloride 103 Carbon Dioxide 26 Anion Gap 9 BUN 6 L Creatinine 0.8 Creat Clearance w eGFR > 60 POC Glucometer Random Glucose 87 Calcium 6.0 L* Phosphorus Magnesium 1.6 L Total Bilirubin 0.7 AST 64 H ALT 57 Alkaline Phosphatase 93 Total Protein 5.1 L Albumin 1.9 L TSH 7.06 H plan: synthroid 88mcg daily oscal 1gmtid vitamin d .25mcg daily drisdol 50k weekly replace mg
[2018-03-09] MEDS: MEROPENEM 500 MG in DEXTROSE 5%-WATER 100 ML IVPB SCH ×3 (01:31→18:07)
[2018-03-09] MEDS: LEVOTHYROXINE NA 88 MCG TABLET (FP) PO SCH (06:07)
[2018-03-09 07:24] LABS: HEMATOCRIT 28.9 % (32.4-45.2); HEMOGLOBIN 9.5 GM/dL (10.7-15.3); MCH 30.7 pg (25.7-33.7); MCHC 32.9 g/dl (32.0-36.0); MEAN CELL VOLUME 93.3 fl (80-96); MEAN PLT VOLUME 8.3 fl (7.5-11.1); PLATELET COUNT 218 K/MM3 (134-434); RDW 20.1 % (11.6-15.6); WHITE BLOOD COUNT 6.3 K/mm3 (4.0-10.0)
[2018-03-09 07:56] LABS: INR 3.92 (0.83-1.09); PROTHROMBIN TIME (PATIENT) 46.9 SEC (9.7-13.0)
[2018-03-09 08:22] LABS: ANION GAP 8 MMOL/L (8-16); BLOOD UREA NITROGEN 6 mg/dL (7-18); CHLORIDE 106 mmol/L (98-107); CO2 25 mmol/L (21-32); CREATININE 0.7 mg/dL (0.55-1.3); GLUCOSE,RANDOM 76 mg/dL (74-106); POTASSIUM 3.4 mmol/L (3.5-5.1); SODIUM 139 mmol/L (136-145)
[2018-03-09 08:46] LABS: CALCIUM 6.1 mg/dL (8.5-10.1)
[2018-03-09] MEDS: AMINO ACIDS/PROTEIN HYDROLYS 30 ML LIQUID.PKT PO SCH ×2 (09:17→18:06)
[2018-03-09] MEDS ORDERED: ERGOCALCIFEROL (VITAMIN D2) 50,000 UNIT CAPSULE (FP) PO SCH (10:00)
[2018-03-09] MEDS: DEXTROSE 5%-0.45% SALINE 1,000 ML IV SCH ×2 (10:31→14:35)
[2018-03-09] MEDS: GABAPENTIN 300 MG CAPSULE (FP) PO SCH ×2 (10:34→21:37)
[2018-03-09] MEDS: ZINC SULFATE 220 MG CAPSULE (FP) PO SCH (10:34)
[2018-03-09] MEDS: PANTOPRAZOLE 40 MG TABLET (FP) PO SCH (10:35)
[2018-03-09] MEDS: CALCIUM (OYSTER SHELL) 500 MG TABLET (FP) PO SCH (10:35)
[2018-03-09] MEDS: ASCORBIC ACID 250 MG TABLET (FP) PO SCH (10:37)
[2018-03-09] MEDS: CALCITRIOL 0.25 MCG CAPSULE (FP) PO SCH (10:37)
--- NOTE | 2018-03-09 12:26 | PN ---
Progress Note (short form) - Note Progress Note: Patient seen and examined at bedside in the ER Feels better today In good spirits smiling no complains INR 3.92 today Vital Signs Temperature 98.3 F 03/09/18 10:16 Pulse Rate 88 03/09/18 10:16 Respiratory Rate 20 03/09/18 10:16 Blood Pressure 140/57 L 03/09/18 10:16 O2 Sat by Pulse Oximetry (%) 100 03/08/18 21:00 PE: NAD lying in bed RRR S1 S2 3/6 murmur heard at RUSB Soft non tender non distended RLE distal mills is dressed. wound with fibrinous exudate 03/09/18 03/09/18 03/09/18 06:30 06:30 06:30 WBC 6.3 RBC 3.10 L Hgb 9.5 L Hct 28.9 L MCV 93.3 MCHC 32.9 RDW 20.1 H Plt Count 218 INR 3.92 H Sodium 139 Potassium 3.4 L Chloride 106 Carbon Dioxide 25 Anion Gap 8 BUN 6 L Creatinine 0.7 03/06/18 11:30 Blood Culture - Preliminary Blood - Peripheral Venous NO GROWTH OBTAINED AFTER 72 HOURS, INCUBATION TO CONTINUE FOR 2 DAYS. 03/06/18 11:35 Blood Culture - Preliminary Blood - Peripheral Venous NO GROWTH OBTAINED AFTER 72 HOURS, INCUBATION TO CONTINUE FOR 2 DAYS. 03/06/18 12:00 Urine Culture - Final Urine - Urine Clean Catch NO GROWTH OBTAINED A/P 87F with multiple medical problems including multiple myeloma presents to the ER with hypotension hypoglycemia and weakness. Problem List: Multiple myeloma cellulitis of right lower extremity Supratherapeutic INR-Resolved HTN DM HLD Vertigo GERD Chronic RLE wound Dementia hypothyroidism A.fib History of DVT hypocalcemia JOSSIE-resolved Lactic acidosis-Resolved Plan: Patient is s/p 2.5mg IVPB of vitamin K hold coumadin given elevated INR continue to monitor coags INR 3.92 today Dexamethasone and Revlimid on hold ABx per ID for cellulitis repeat wound cultures PT consult Dr. Zaman to see patient (patient sees him as outpatient for hroni RLE wound) Blood cultures negative so far UCx negative final will follow
--- NOTE | 2018-03-09 13:02 | PN ---
Progress Note, Physician Chief Complaint: patient seen wound undressed - Current Medication List Current Medications: Active Medications Acetaminophen (Tylenol -) 650 mg PO Q6H PRN PRN Reason: FEVER Last Admin: 03/08/18 09:04 Dose: 650 mg Amino Acids (Prosource No Carb Liquid Pkt) 30 ml PO BID@0800,1730 [facility] Last Admin: 03/09/18 09:17 Dose: 30 ml Ascorbic Acid (Vitamin C -) 250 mg PO DAILY [facility] Last Admin: 03/09/18 10:37 Dose: 250 mg Calcitriol (Rocaltrol -) 0.25 mcg PO DAILY [facility] Last Admin: 03/09/18 10:37 Dose: 0.25 mcg Calcium Carbonate (Os-Severo 500mg -) 1,000 mg PO DAILY [facility] Last Admin: 03/09/18 10:35 Dose: 1,000 mg Ergocalciferol (Drisdol -) 50,000 unit PO Q7D@1000 [facility] Last Admin: 03/09/18 10:32 Dose: 50,000 unit Gabapentin (Neurontin -) 600 mg PO BID [facility] Last Admin: 03/09/18 10:34 Dose: 600 mg Dextrose/Sodium Chloride (D5-1/2ns -) 1,000 mls @ 83 mls/hr IV ASDIR [facility] Last Admin: 03/09/18 10:31 Dose: 83 mls/hr Vancomycin HCl (Vancomycin (Pre-Docked)) 1,000 mg in 250 mls @ 166.667 mls/hr IVPB Q24H [facility]; Protocol Last Admin: 03/08/18 16:45 Dose: 166.667 mls/hr Meropenem 500 mg/ Dextrose 100 mls @ 200 mls/hr IVPB Q8H-IV [facility] Last Admin: 03/09/18 10:33 Dose: 200 mls/hr Levothyroxine Sodium (Synthroid -) 88 mcg PO DAILY@0700 [facility] Last Admin: 03/09/18 06:07 Dose: 88 mcg Pantoprazole Sodium (Protonix -) 40 mg PO DAILY [facility] Last Admin: 03/09/18 10:35 Dose: 40 mg Pramipexole Dihydrochloride (Mirapex -) 0.25 mg PO HS [facility] Last Admin: 03/08/18 21:59 Dose: 0.25 mg Tramadol HCl (Ultram -) 50 mg PO Q8H PRN PRN Reason: PAIN LEVEL 7 - 10 Last Admin: 03/08/18 16:51 Dose: 50 mg Warfarin Sodium (Coumadin -) 2 mg PO DAILY@1800 [facility] Last Admin: 03/08/18 18:10 Dose: 2 mg Zinc Sulfate (Orazinc -) 220 mg PO DAILY [facility] Last Admin: 03/09/18 10:34 Dose: 220 mg - Objective Vital Signs: Vital Signs Temperature 98.3 F 03/09/18 10:16 Pulse Rate 88 03/09/18 10:16 Respiratory Rate 20 03/09/18 10:16 Blood Pressure 140/57 L 03/09/18 10:16 O2 Sat by Pulse Oximetry (%) 100 03/08/18 21:00 Constitutional: Yes: Calm Cardiovascular: Yes: Regular Rate and Rhythm, S1, S2 Respiratory: Yes: CTA Bilaterally Gastrointestinal: Yes: Normal Bowel Sounds, Soft Edema: No Wound/Incision: Yes: Dressing Removed (pink based with yellow drainage) Neurological: Yes: Alert Labs: CBC, BMP 03/09/18 06:30 03/09/18 06:30 INR, PTT INR 3.92 (0.83-1.09) H 03/09/18 06:30 Problem List - Problems (1) Wound of right lower extremity Assessment/Plan: seen by surgical team collagenase wound culture contact precautions wound culture meropenem and vancomycin Code(s): S81.801A - UNSPECIFIED OPEN WOUND, RIGHT LOWER LEG, INITIAL ENCOUNTER (2) Afib Assessment/Plan: INR imprved s/p vitamin K couamdin BB not given intially bc of low BP- HR is controlled INR elevated- hold couamdin Code(s): I48.91 - UNSPECIFIED ATRIAL FIBRILLATION (3) Supratherapeutic INR Assessment/Plan: supratherepuetic will hold for now DVT on AC hold today Code(s): R79.1 - ABNORMAL COAGULATION PROFILE (4) Hypotension Assessment/Plan: IVF now BP improved lactic acid 2.7 now normal and Cr 1.8 is now 1.0 s/p ivf Microbiology 03/06/18 12:00 Urine - Urine Clean Catch Urine Culture - Final NO GROWTH OBTAINED 03/06/18 11:35 Blood - Peripheral Venous Blood Culture - Preliminary NO GROWTH OBTAINED AFTER 24 HOURS, INCUBATION TO CONTINUE FOR 4 DAYS. 03/06/18 11:30 Blood - Peripheral Venous Blood Culture - Preliminary NO GROWTH OBTAINED AFTER 24 HOURS, INCUBATION TO CONTINUE FOR 4 DAYS. BP is now normal ivf d5/ given low blood sugar Code(s): I95.9 - HYPOTENSION, UNSPECIFIED (5) Anemia Assessment/Plan: iron panel Code(s): D64.9 - ANEMIA, UNSPECIFIED Qualifiers: Anemia type: B12 deficiency 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 (6) Deep vein thrombosis Assessment/Plan: on couamdin was held bc of supratherapeutic iNR Code(s): I82.409 - ACUTE EMBOLISM AND THOMBOS UNSP DEEP VN UNSP LOWER EXTREMITY (7) Hypothyroidism Assessment/Plan: tsh note 7 on synthroid- dose increased Code(s): E03.9 - HYPOTHYROIDISM, UNSPECIFIED (8) Electrolyte abnormality Assessment/Plan: repleted potassoium check Mag today Code(s): E87.8 - OTH DISORDERS OF ELECTROLYTE AND FLUID BALANCE, NEC
[2018-03-09] MEDS ORDERED: POTASSIUM CHLORIDE TABS 20 MEQ TABLET.ER (FP) PO ONE (13:04)
--- NOTE | 2018-03-09 13:21 | PN ---
Progress Note (short form) - Note Progress Note: Vascular Surgery Pt seen and examined. RLE venous stasis ulcer. Followed in wound care clinic Pt has missed the last couple of appts. RLE venous stasis ulcer is clean and pink. Cont santyl with diana to area. Anthony Zaman DO
[2018-03-09] MEDS: COLLAGENASE CLOSTRIDIUM HIST. 30 GRAMS TUBE TP SCH (14:00)
--- NOTE | 2018-03-09 14:01 | CONSULT ---
Consultation: CONSULT REQUEST: Nephrology Resident HISTORY OF PRESENT ILLNESS: 87yo F with h/o HTN, HLD, chronic LE wound (overseen by Dr. Zaman in ), Atrial fibrillation, multiple myeloma, NIDDM who initially presented to the hospital due to feeling lightheaded on her wound check and was found to be hypotensive to the 70's systolic. We were asked to medically evaluate this patient due to her hypocalcemia that was found today. Pt denies any pain currently. 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 [employer] Allergies: NKDA REVIEW OF SYSTEMS: CONSTITUTIONAL: Present: Lightheadedness, generalized weakness Absent: fever, chills, diaphoresis, malaise, loss of appetite, weight change HEENT: Absent: rhinorrhea, nasal congestion, throat pain, throat swelling, difficulty swallowing, mouth swelling, ear pain, eye pain, visual changes CARDIOVASCULAR: Absent: chest pain, syncope, palpitations, irregular heart rate, peripheral edema RESPIRATORY: Absent: cough, shortness of breath, dyspnea with exertion, orthopnea, wheezing GASTROINTESTINAL: Absent: abdominal pain, abdominal distension, nausea, vomiting, diarrhea, constipation GENITOURINARY: Absent: dysuria, frequency, urgency, hesitancy, hematuria, flank pain MUSCULOSKELETAL: Absent: myalgia, arthralgia, joint swelling, back pain, neck pain SKIN: Absent: rash, itching, pallor NEUROLOGIC: Absent: headache, focal weakness or paresthesias, dizziness, unsteady gait, seizure, mental status changes, bladder or bowel incontinence PSYCHIATRIC: Absent: anxiety, depression, PHYSICAL EXAMINATION Vital Signs - 24 hr 03/08/18 03/08/18 03/08/18 18:00 21:00 22:00 Temperature 100.9 F H 99.4 F Pulse Rate 94 H 86 Respiratory 20 20 20 Rate Blood Pressure 137/67 115/60 O2 Sat by Pulse 100 Oximetry (%) 03/09/18 03/09/18 03/09/18 02:00 06:00 10:16 Temperature 100.3 F H 98.7 F 98.3 F Pulse Rate 78 87 88 Respiratory 20 20 20 Rate Blood Pressure 129/46 L 117/67 140/57 L O2 Sat by Pulse Oximetry (%) GENERAL: NAD, awake, alert, sitting up in bed HEENT: NC/AT, EOMi, RICK, sclera anicteric, MMM, facial symmetry NECK: No JVD LUNGS: CTA bilaterally. No wheezes, and no crackles. No accessory muscle use. HEART: RRR, normal S1 and S2 without murmur ABDOMEN: Soft, NT/ND, normoactive bowel sounds, no guarding. MUSCULOSKELETAL: No CVA tenderness. EXTREMITIES: 1+ DP pulses b/l, 8x6cm LLE wound noted with no active drainage, no erythema surrounding wound or stranding noted. No peripheral edema. NEUROLOGICAL: needle control cheniller II-XII intact. Normal speech. Normal gait. PSYCHIATRIC: Cooperative. Good eye contact. Appropriate mood and affect. SKIN: Warm, dry, no rashes, see extremity exam above Laboratory Results - last 24 hr 03/08/18 03/09/18 03/09/18 06:30 06:30 06:30 WBC 6.3 RBC 3.10 L Hgb 9.5 L Hct 28.9 L MCV 93.3 MCH 30.7 MCHC 32.9 RDW 20.1 H Plt Count 218 MPV 8.3 PT with INR 46.90 H INR 3.92 H Sodium Potassium Chloride Carbon Dioxide Anion Gap BUN Creatinine Creat Clearance w eGFR Random Glucose Calcium Cortisol AM Sample 22.9 03/09/18 06:30 WBC RBC Hgb Hct MCV MCH MCHC RDW Plt Count MPV PT with INR INR Sodium 139 Potassium 3.4 L Chloride 106 Carbon Dioxide 25 Anion Gap 8 BUN 6 L Creatinine 0.7 Creat Clearance w eGFR > 60 Random Glucose 76 Calcium 6.1 L* Cortisol AM Sample Active Medications Generic Name Dose Route Start Last Admin Trade Name Freq PRN Reason Stop Dose Admin Acetaminophen 650 mg 03/06/18 16:01 03/08/18 09:04 Tylenol - PO 650 mg Q6H PRN Administration FEVER Amino Acids 30 ml 03/08/18 17:30 03/09/18 09:17 Prosource No Carb Liquid Pkt PO 30 ml BID@0800,1730 [facility] Administration Ascorbic Acid 250 mg 03/09/18 10:00 03/09/18 10:37 Vitamin C - PO 250 mg DAILY [facility] Administration Calcitriol 0.25 mcg 03/09/18 10:00 03/09/18 10:37 Rocaltrol - PO 0.25 mcg DAILY [facility] Administration Calcium Carbonate 1,000 mg 03/09/18 10:00 03/09/18 10:35 Os-Severo 500mg - PO 1,000 mg DAILY [facility] Administration Collagenase 1 applic 03/09/18 14:00 Santyl - TP DAILY [facility] Protocol Ergocalciferol 50,000 unit 03/09/18 10:00 03/09/18 10:32 Drisdol - PO 50,000 unit Q7D@1000 [facility] Administration Gabapentin 600 mg 03/06/18 22:00 03/09/18 10:34 Neurontin - PO 600 mg BID [facility] Administration Dextrose/Sodium Chloride 1,000 mls @ 83 mls/hr 03/06/18 13:30 03/09/18 10:31 D5-1/2ns - IV 83 mls/hr ASDIR [facility] Administration Vancomycin HCl 1,000 mg in 250 mls @ 166.667 mls/hr 03/08/18 16:30 03/08/18 16:45 Vancomycin (Pre-Docked) IVPB 166.667 mls/hr Q24H [facility] Administration Protocol Meropenem 500 mg/ Dextrose 100 mls @ 200 mls/hr 03/08/18 18:00 03/09/18 10:33 IVPB 200 mls/hr Q8H-IV [facility] Administration Levothyroxine Sodium 88 mcg 03/09/18 07:00 03/09/18 06:07 Synthroid - PO 88 mcg DAILY@0700 [facility] Administration Metoprolol Tartrate 12.5 mg 03/10/18 10:00 Lopressor - PO DAILY [facility] Pantoprazole Sodium 40 mg 03/07/18 10:00 03/09/18 10:35 Protonix - PO 40 mg DAILY [facility] Administration Pramipexole Dihydrochloride 0.25 mg 03/06/18 22:00 03/08/18 21:59 Mirapex - PO 0.25 mg HS [facility] Administration Tramadol HCl 50 mg 03/06/18 16:01 03/08/18 16:51 Ultram - PO 50 mg Q8H PRN Administration PAIN LEVEL 7 - 10 Valacyclovir HCl 500 mg 03/10/18 06:00 Valtrex - PO DAILY@0600 [facility] Warfarin Sodium 2 mg 03/07/18 18:00 03/08/18 18:10 Coumadin - PO 2 mg DAILY@1800 [facility] Administration Zinc Sulfate 220 mg 03/09/18 10:00 03/09/18 10:34 Orazinc - PO 220 mg DAILY [facility] Administration ASSESSMENT/PLAN: Hypocalcemia (cCa 7.78) Hypokalemia HypoMg Multiple myeloma Chronic leg wounds Supratherapeutic INR Atrial fibrilation NIDDM --Ordered PTH; will f/u --Ca2+, Mg, and K+ already repleted by primary team --Continue to replete as needed --Vascular surgery mgmt for wound --Rest per primary and oncology teams Dispo: Monitor Ca; labs in AM. Thank you for this consultative opportunity Case discussed with Dr. Martha Wick, DO - IM PGY-2 Visit type - Emergency Visit Emergency Visit: Yes ED Registration Date: 03/06/18 Care time: The patient presented to the Emergency Department on the above date and was hospitalized for further evaluation of their emergent condition. - New Patient This patient is new to me today: Yes Date on this admission: 03/09/18 - Critical Care Critical Care patient: No
[2018-03-09] MEDS: ACETAMINOPHEN 325 MG TABLET (FP) PO PRN (14:14)
[2018-03-09 14:55] LABS: MAGNESIUM 1.7 mg/dL (1.8-2.4)
--- NOTE | 2018-03-09 15:41 | PN ---
Teaching Attending Note Name of Resident: Dav Wick (Nephrology) ATTENDING PHYSICIAN STATEMENT I saw and evaluated the patient. I reviewed the resident's note and discussed the case with the resident. I agree with the resident's findings and plan as documented. Renal Pt is an 87 year old female with pmhx of HTN, a-fib, hypothyroidism, multilple myeloma and anemia who initially presented for hypotension. SHe is being treated for a lower ext ulcer. I was called to evaluate her for hypocalcemia. She did have a thyroidectomy in the past. pmhx htn afib dvt multiple myeloma hypothyridism chf dm ros malaise nkda Current Medications Generic Name Dose Route Start Last Admin Trade Name Freq PRN Reason Stop Dose Admin Acetaminophen 650 mg 03/06/18 16:01 03/09/18 14:14 Tylenol - PO 650 mg Q6H PRN Administration FEVER Amino Acids 30 ml 03/08/18 17:30 03/09/18 09:17 Prosource No Carb Liquid Pkt PO 30 ml BID@0800,1730 [facility] Administration Ascorbic Acid 250 mg 03/09/18 10:00 03/09/18 10:37 Vitamin C - PO 250 mg DAILY [facility] Administration Calcitriol 0.25 mcg 03/09/18 10:00 03/09/18 10:37 Rocaltrol - PO 0.25 mcg DAILY [facility] Administration Calcium Carbonate 1,000 mg 03/09/18 10:00 03/09/18 10:35 Os-Severo 500mg - PO 1,000 mg DAILY [facility] Administration Collagenase 1 applic 03/09/18 14:00 Santyl - TP DAILY [facility] Protocol Ergocalciferol 50,000 unit 03/09/18 10:00 03/09/18 10:32 Drisdol - PO 50,000 unit Q7D@1000 [facility] Administration Gabapentin 600 mg 03/06/18 22:00 03/09/18 10:34 Neurontin - PO 600 mg BID [facility] Administration Dextrose/Sodium Chloride 1,000 mls @ 83 mls/hr 03/06/18 13:30 03/09/18 14:35 D5-1/2ns - IV Not Given ASDIR [facility] Vancomycin HCl 1,000 mg in 250 mls @ 166.667 mls/hr 03/08/18 16:30 03/08/18 16:45 Vancomycin (Pre-Docked) IVPB 166.667 mls/hr Q24H [facility] Administration Protocol Meropenem 500 mg/ Dextrose 100 mls @ 200 mls/hr 03/08/18 18:00 03/09/18 10:33 IVPB 200 mls/hr Q8H-IV [facility] Administration Levothyroxine Sodium 88 mcg 03/09/18 07:00 03/09/18 06:07 Synthroid - PO 88 mcg DAILY@0700 [facility] Administration Metoprolol Tartrate 12.5 mg 03/10/18 10:00 Lopressor - PO DAILY [facility] Pantoprazole Sodium 40 mg 03/07/18 10:00 03/09/18 10:35 Protonix - PO 40 mg DAILY [facility] Administration Pramipexole Dihydrochloride 0.25 mg 03/06/18 22:00 03/08/18 21:59 Mirapex - PO 0.25 mg HS [facility] Administration Tramadol HCl 50 mg 03/06/18 16:01 03/08/18 16:51 Ultram - PO 50 mg Q8H PRN Administration PAIN LEVEL 7 - 10 Valacyclovir HCl 500 mg 03/10/18 06:00 Valtrex - PO DAILY@0600 [facility] Warfarin Sodium 2 mg 03/07/18 18:00 03/08/18 18:10 Coumadin - PO 2 mg DAILY@1800 [facility] Administration Zinc Sulfate 220 mg 03/09/18 10:00 03/09/18 10:34 Orazinc - PO 220 mg DAILY [facility] Administration Laboratory Tests 03/06/18 03/07/18 03/08/18 11:30 06:15 06:30 Hgb Sodium Potassium 3.7 BUN Calcium 7.2 L 6.6 L* 6.0 L* Magnesium Albumin 1.9 L 03/09/18 03/09/18 03/09/18 06:30 06:30 13:30 Hgb 9.5 L Sodium 139 Potassium 3.4 L BUN 6 L Calcium 6.1 L* Magnesium 1.7 L 1.4 L Albumin Last Vital Signs Temp Pulse Resp BP Pulse Ox 98.3 F 88 20 140/57 L 100 03/09/18 10:16 03/09/18 10:16 03/09/18 10:16 03/09/18 10:16 03/08/18 21:00 cardio s1s2 pulm clear GI soft ext neg edema, wound open to air skin lower ext ulcer neuro awake Impression 1. hypocalcemia 2. hypokalemia 3. multiple myeloma 4. hypothyroidism 5. htn Plan - replace calcium - check cmp tomorrow and correct for albumin - check pth, pt did have a thyroidectomy, unclear how much thyroid tissue she has left - replace lytes and monitor Dr Thomas
--- NOTE | 2018-03-09 17:54 | PN ---
Progress Note (short form) - Note Progress Note: awake and alert no diarrhea febrile to 101.5 no chills or rigors leg ulcer is clean per conversation with Dr Zaman earlier today Vital Signs Period Temp Pulse Resp BP Sys/Ferrer Pulse Ox Last 24 Hr 98.3 F-101.5 F 78-94 20-20 115-140/46-69 98-100 cor-rrr lungs decreased bs at bases abd soft,nt ext dressing intact CBC, BMP 03/09/18 06:30 03/09/18 06:30 Microbiology 03/06/18 11:30 Blood - Peripheral Venous Blood Culture - Preliminary NO GROWTH OBTAINED AFTER 72 HOURS, INCUBATION TO CONTINUE FOR 2 DAYS. 03/06/18 11:35 Blood - Peripheral Venous Blood Culture - Preliminary NO GROWTH OBTAINED AFTER 72 HOURS, INCUBATION TO CONTINUE FOR 2 DAYS. 03/06/18 12:00 Urine - Urine Clean Catch Urine Culture - Final NO GROWTH OBTAINED Current Medications Acetaminophen (Tylenol -) 650 mg PO Q6H PRN PRN Reason: FEVER Last Admin: 03/09/18 14:14 Dose: 650 mg Amino Acids (Prosource No Carb Liquid Pkt) 30 ml PO BID@0800,1730 [facility] Last Admin: 03/09/18 09:17 Dose: 30 ml Ascorbic Acid (Vitamin C -) 250 mg PO DAILY [facility] Last Admin: 03/09/18 10:37 Dose: 250 mg Calcitriol (Rocaltrol -) 0.25 mcg PO DAILY [facility] Last Admin: 03/09/18 10:37 Dose: 0.25 mcg Calcium Carbonate (Os-Severo 500mg -) 1,000 mg PO DAILY [facility] Last Admin: 03/09/18 10:35 Dose: 1,000 mg Collagenase (Santyl -) 1 applic TP DAILY [facility]; Protocol Last Admin: 03/09/18 14:00 Dose: 1 applic Ergocalciferol (Drisdol -) 50,000 unit PO Q7D@1000 [facility] Last Admin: 03/09/18 10:32 Dose: 50,000 unit Gabapentin (Neurontin -) 600 mg PO BID [facility] Last Admin: 03/09/18 10:34 Dose: 600 mg Dextrose/Sodium Chloride (D5-1/2ns -) 1,000 mls @ 83 mls/hr IV ASDIR [facility] Last Admin: 03/09/18 14:35 Dose: Not Given Vancomycin HCl (Vancomycin (Pre-Docked)) 1,000 mg in 250 mls @ 166.667 mls/hr IVPB Q24H [facility]; Protocol Last Admin: 03/08/18 16:45 Dose: 166.667 mls/hr Meropenem 500 mg/ Dextrose 100 mls @ 200 mls/hr IVPB Q8H-IV [facility] Last Admin: 03/09/18 10:33 Dose: 200 mls/hr Levothyroxine Sodium (Synthroid -) 88 mcg PO DAILY@0700 [facility] Last Admin: 03/09/18 06:07 Dose: 88 mcg Metoprolol Tartrate (Lopressor -) 12.5 mg PO DAILY [facility] Pantoprazole Sodium (Protonix -) 40 mg PO DAILY [facility] Last Admin: 03/09/18 10:35 Dose: 40 mg Pramipexole Dihydrochloride (Mirapex -) 0.25 mg PO HS [facility] Last Admin: 03/08/18 21:59 Dose: 0.25 mg Tramadol HCl (Ultram -) 50 mg PO Q8H PRN PRN Reason: PAIN LEVEL 7 - 10 Last Admin: 03/08/18 16:51 Dose: 50 mg Valacyclovir HCl (Valtrex -) 500 mg PO DAILY@0600 [facility] Warfarin Sodium (Coumadin -) 2 mg PO DAILY@1800 [facility] Last Admin: 03/08/18 18:10 Dose: 2 mg Zinc Sulfate (Orazinc -) 220 mg PO DAILY [facility] Last Admin: 03/09/18 10:34 Dose: 220 mg a/p new fever-not toxic repeat blood cultures leg ulcers with drainage- prior cultures with resistant organisms will repeat cultures will continue vanco/meropenem based on prior sensitivities history of myeloma
[2018-03-09] MEDS: VANCOMYCIN 1 GRAM (PRE-DOCKED) 1,000 MG/250 ML BAG IVPB SCH (18:05)
[2018-03-09] MEDS: PRAMIPEXOLE DIHYDROCHLORIDE 0.25 MG TABLET PO SCH (21:36)
[2018-03-09] MEDS ORDERED: PT OWN MED DRAWER 7, Y5N ONE (22:37)
[2018-03-10] MEDS: MEROPENEM 500 MG in DEXTROSE 5%-WATER 100 ML IVPB SCH ×3 (01:59→18:09)
[2018-03-10] MEDS ORDERED: PT OWN MED DRAWER 7, Y5N ONE ×2 (05:52→17:26)
[2018-03-10] MEDS: LEVOTHYROXINE NA 88 MCG TABLET (FP) PO SCH (06:41)
[2018-03-10] MEDS: valACYclovir HCL 500 MG TABLET (FP) PO SCH (06:41)
[2018-03-10] MEDS: DEXTROSE 5%-0.45% SALINE 1,000 ML IV SCH ×2 (06:44→15:34)
[2018-03-10 07:42] LABS: BASO % 1.6 % (0-2.0); EOS % 0.6 % (0-4.5); HEMATOCRIT 29.5 % (32.4-45.2); HEMOGLOBIN 9.5 GM/dL (10.7-15.3); LYMPH % 8.2 % (8-40); MCH 30.2 pg (25.7-33.7); MCHC 32.1 g/dl (32.0-36.0); MEAN CELL VOLUME 94.1 fl (80-96); MEAN PLT VOLUME 8.4 fl (7.5-11.1); NEUT % 75.6 % (42.8-82.8); PLATELET COUNT 225 K/MM3 (134-434); RBC 3.14 M/mm3 (3.60-5.2); RDW 20.3 % (11.6-15.6); WHITE BLOOD COUNT 6.4 K/mm3 (4.0-10.0)
[2018-03-10 07:52] LABS: INR 3.91 (0.83-1.09); PROTHROMBIN TIME (PATIENT) 46.8 SEC (9.7-13.0)
[2018-03-10] MEDS: AMINO ACIDS/PROTEIN HYDROLYS 30 ML LIQUID.PKT PO SCH ×2 (08:58→18:09)
[2018-03-10 09:46] LABS: ALBUMIN 1.5 g/dl (3.4-5.0); ALK PHOS 74 U/L (45-117); ANION GAP 10 MMOL/L (8-16); BILIRUBIN,TOTAL 0.6 mg/dL (0.2-1); BLOOD UREA NITROGEN 9 mg/dL (7-18); CHLORIDE 108 mmol/L (98-107); CO2 23 mmol/L (21-32); CREATININE 0.7 mg/dL (0.55-1.3); GLUCOSE,RANDOM 73 mg/dL (74-106); MAGNESIUM 1.6 mg/dL (1.8-2.4); POTASSIUM 3.7 mmol/L (3.5-5.1); SGOT/AST 39 U/L (15-37); SGPT/ALT 39 U/L (13-61); SODIUM 141 mmol/L (136-145); TOT PROT 4.5 g/dl (6.4-8.2)
--- NOTE | 2018-03-10 09:46 | PN ---
Progress Note, Physician - Current Medication List Current Medications: Active Medications Acetaminophen (Tylenol -) 650 mg PO Q6H PRN PRN Reason: FEVER Last Admin: 03/09/18 14:14 Dose: 650 mg Amino Acids (Prosource No Carb Liquid Pkt) 30 ml PO BID@0800,1730 [facility] [place] Last Admin: 03/10/18 08:58 Dose: 30 ml Ascorbic Acid (Vitamin C -) 250 mg PO DAILY [facility] [place] Last Admin: 03/09/18 10:37 Dose: 250 mg Calcitriol (Rocaltrol -) 0.25 mcg PO DAILY [facility] [place] Last Admin: 03/09/18 10:37 Dose: 0.25 mcg Calcium Carbonate (Os-Severo 500mg -) 1,000 mg PO DAILY [facility] [place] Last Admin: 03/09/18 10:35 Dose: 1,000 mg Collagenase (Santyl -) 1 applic TP DAILY [facility] [place]; Protocol Last Admin: 03/09/18 14:00 Dose: 1 applic Ergocalciferol (Drisdol -) 50,000 unit PO Q7D@1000 [facility] [place] Last Admin: 03/09/18 10:32 Dose: 50,000 unit Gabapentin (Neurontin -) 600 mg PO BID [facility] [place] Last Admin: 03/09/18 21:37 Dose: 600 mg Dextrose/Sodium Chloride (D5-1/2ns -) 1,000 mls @ 83 mls/hr IV ASDIR [facility] [place] Last Admin: 03/10/18 06:44 Dose: 83 mls/hr Vancomycin HCl (Vancomycin (Pre-Docked)) 1,000 mg in 250 mls @ 166.667 mls/hr IVPB Q24H [facility] [place]; Protocol Last Admin: 03/09/18 18:05 Dose: 166.667 mls/hr Meropenem 500 mg/ Dextrose 100 mls @ 200 mls/hr IVPB Q8H-IV [facility] [place] Last Admin: 03/10/18 01:59 Dose: 200 mls/hr Levothyroxine Sodium (Synthroid -) 88 mcg PO DAILY@0700 [facility] [place] Last Admin: 03/10/18 06:41 Dose: 88 mcg Metoprolol Tartrate (Lopressor -) 12.5 mg PO DAILY [facility] [place] Pantoprazole Sodium (Protonix -) 40 mg PO DAILY [facility] [place] Last Admin: 03/09/18 10:35 Dose: 40 mg Pramipexole Dihydrochloride (Mirapex -) 0.25 mg PO HS [facility] [place] Last Admin: 03/09/18 21:36 Dose: 0.25 mg Tramadol HCl (Ultram -) 50 mg PO Q8H PRN PRN Reason: PAIN LEVEL 7 - 10 Last Admin: 03/08/18 16:51 Dose: 50 mg Valacyclovir HCl (Valtrex -) 500 mg PO DAILY@0600 [facility] [place] Last Admin: 03/10/18 06:41 Dose: 500 mg Warfarin Sodium (Coumadin -) 2 mg PO DAILY@1800 [facility] [place] Last Admin: 03/08/18 18:10 Dose: 2 mg Zinc Sulfate (Orazinc -) 220 mg PO DAILY [facility] [place] Last Admin: 03/09/18 10:34 Dose: 220 mg - Objective Vital Signs: Vital Signs Temperature 99.3 F 03/10/18 06:00 Pulse Rate 79 03/10/18 06:00 Respiratory Rate 20 03/10/18 06:00 Blood Pressure 109/57 L 03/10/18 06:00 O2 Sat by Pulse Oximetry (%) 98 03/09/18 21:00 Cardiovascular: Yes: Regular Rate and Rhythm Respiratory: Yes: Regular, CTA Bilaterally Gastrointestinal: Yes: Normal Bowel Sounds, Soft Wound/Incision: Yes: Excoriated Neurological: Yes: Alert Labs: CBC, BMP 03/10/18 06:30 INR, PTT INR 3.91 (0.83-1.09) H 03/10/18 06:30 Assessment/Plan - Problems (1) Wound of right lower extremity Assessment/Plan: seen by surgical team collagenase wound culture contact precautions wound culture meropenem and vancomycin Code(s): S81.801A - UNSPECIFIED OPEN WOUND, RIGHT LOWER LEG, INITIAL ENCOUNTER (2) Afib Assessment/Plan: INR imprved s/p vitamin K INR, PTT INR 3.91 (0.83-1.09) H 03/10/18 06:30 couamdin on hold BB not given intially bc of low BP- HR is controlled INR elevated- hold couamdin Code(s): I48.91 - UNSPECIFIED ATRIAL FIBRILLATION (3) Supratherapeutic INR Assessment/Plan: supratherepuetic will hold coumadin for now Code(s): R79.1 - ABNORMAL COAGULATION PROFILE (4) Hypotension Assessment/Plan: IVF now BP improved lactic acid 2.7 now normal and Cr 1.8 is now 1.0 s/p ivf Microbiology 03/06/18 12:00 Urine - Urine Clean Catch Urine Culture - Final NO GROWTH OBTAINED 03/06/18 11:35 Blood - Peripheral Venous Blood Culture - Preliminary NO GROWTH OBTAINED AFTER 24 HOURS, INCUBATION TO CONTINUE FOR 4 DAYS. 03/06/18 11:30 Blood - Peripheral Venous Blood Culture - Preliminary NO GROWTH OBTAINED AFTER 24 HOURS, INCUBATION TO CONTINUE FOR 4 DAYS. 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
[2018-03-10 10:17] LABS: CALCIUM 6.8 mg/dL (8.5-10.1)
[2018-03-10] MEDS: METOPROLOL TARTRATE 25 MG TABLET (FP) PO SCH (10:29)
[2018-03-10] MEDS: CALCIUM (OYSTER SHELL) 500 MG TABLET (FP) PO SCH (10:30)
[2018-03-10] MEDS: PANTOPRAZOLE 40 MG TABLET (FP) PO SCH (10:31)
[2018-03-10] MEDS: CALCITRIOL 0.25 MCG CAPSULE (FP) PO SCH (10:31)
[2018-03-10] MEDS: GABAPENTIN 300 MG CAPSULE (FP) PO SCH ×2 (10:32→21:36)
[2018-03-10] MEDS: COLLAGENASE CLOSTRIDIUM HIST. 30 GRAMS TUBE TP SCH (10:34)
[2018-03-10] MEDS: ASCORBIC ACID 250 MG TABLET (FP) PO SCH (10:35)
[2018-03-10] MEDS: ZINC SULFATE 220 MG CAPSULE (FP) PO SCH (10:39)
--- NOTE | 2018-03-10 11:55 | PN ---
Progress Note (short form) - Note Progress Note: Patient seen and examined at bedside in the ER Feels better today Had questions about wound and multiple myeloma All questions answered Wound culture pending Tmax 101.5 in past 24 hours Vital Signs Period Temp Pulse Resp BP Sys/Ferrer Pulse Ox Last 24 Hr 99.3 F-101.5 F 69-94 20-20 104-135/44-81 98 PE: NAD lying in bed RRR S1 S2 3/6 murmur heard at RUSB Soft non tender non distended RLE distal mills is dressed. No lower extremity edema 03/09/18 03/10/18 03/10/18 06:30 06:30 06:30 WBC 6.4 RBC 3.14 L Hgb 9.5 L Hct 29.5 L MCV 94.1 MCHC 32.1 RDW 20.3 H Plt Count 225 Neutrophils % 75.6 Lymphocytes % 8.2 D Monocytes % 14.0 H Eosinophils % 0.6 Basophils % 1.6 D INR 3.91 H Sodium 139 Potassium 3.4 L Chloride 106 Carbon Dioxide 25 Anion Gap 8 BUN 6 L Creatinine 0.7 03/10/18 06:30 WBC RBC Hgb Hct MCV MCHC RDW Plt Count Neutrophils % Lymphocytes % Monocytes % Eosinophils % Basophils % INR Sodium 141 Potassium 3.7 Chloride 108 H Carbon Dioxide 23 Anion Gap 10 BUN 9 Creatinine 0.7 03/06/18 11:30 Blood Culture - Preliminary Blood - Peripheral Venous NO GROWTH OBTAINED AFTER 96 HOURS, INCUBATION TO CONTINUE FOR 1 DAYS. 03/06/18 11:35 Blood Culture - Preliminary Blood - Peripheral Venous NO GROWTH OBTAINED AFTER 96 HOURS, INCUBATION TO CONTINUE FOR 1 DAYS. 03/09/18 12:45 Gram Stain - Final Ankle - Right Lateral Wound Culture - Pending 03/09/18 19:00 Blood Culture - Pending Blood - Peripheral Venous 03/09/18 18:40 Blood Culture - Pending Blood - Peripheral Venous 03/06/18 12:00 Urine Culture - Final Urine - Urine Clean Catch NO GROWTH OBTAINED A/P 87F with multiple medical problems including multiple myeloma presents to the ER with hypotension hypoglycemia and weakness. Problem List: Multiple myeloma cellulitis of right lower extremity Supratherapeutic INR-Resolved HTN DM HLD Vertigo GERD Chronic RLE wound Dementia hypothyroidism A.fib History of DVT hypocalcemia JOSSIE-resolved Lactic acidosis-Resolved Plan: Patient is s/p 2.5mg IVPB of vitamin K INR 3.91 coumadin remains on hold continue to monitor coags Dexamethasone and Revlimid on hold Spiked fever last night On vanco meropenem-history of MRSA and acinetobacter ABx per ID for cellulitis wound culture pending PT consult Dr. Zaman to see patient (patient sees him as outpatient for chroni RLE wound) Cultures negative will follow
--- NOTE | 2018-03-10 13:08 | PN ---
Progress Note (short form) - Note Progress Note: awake and alert no diarrhea febrile to 101.5 no chills or rigors left calf pain no diarrhea Vital Signs Period Temp Pulse Resp BP Sys/Ferrer Pulse Ox Last 24 Hr 99.3 F-101.5 F 69-94 20-20 104-135/44-81 98 cor-rrr lungs clear abd soft,nt ext ulcer clean, still some drainage and odor, RLE with calf tenderness and ankle swelling CBC, BMP 03/10/18 06:30 03/10/18 06:30 Microbiology 03/06/18 11:30 Blood - Peripheral Venous Blood Culture - Preliminary NO GROWTH OBTAINED AFTER 96 HOURS, INCUBATION TO CONTINUE FOR 1 DAYS. 03/06/18 11:35 Blood - Peripheral Venous Blood Culture - Preliminary NO GROWTH OBTAINED AFTER 96 HOURS, INCUBATION TO CONTINUE FOR 1 DAYS. 03/09/18 12:45 Ankle - Right Lateral Gram Stain - Final 03/06/18 12:00 Urine - Urine Clean Catch Urine Culture - Final NO GROWTH OBTAINED a/p new fever-not toxic repeat blood cultures pending will get duplex of left lower extremities leg ulcers with drainage- prior cultures with resistant organisms will continue vanco/meropenem based on prior sensitivities history of myeloma
[2018-03-10] MEDS: ACETAMINOPHEN 325 MG TABLET (FP) PO PRN (15:31)
--- NOTE | 2018-03-10 16:14 | PN ---
Progress Note (short form) - Note Progress Note: covering dr ede Plaza 1. hypocalcemia 2. hypokalemia 3. multiple myeloma 4. hypothyroidism 5. htn Current Medications Acetaminophen (Tylenol -) 650 mg PO Q6H PRN PRN Reason: FEVER Last Admin: 03/10/18 15:31 Dose: 650 mg Amino Acids (Prosource No Carb Liquid Pkt) 30 ml PO BID@0800,1730 [facility] Last Admin: 03/10/18 08:58 Dose: 30 ml Ascorbic Acid (Vitamin C -) 250 mg PO DAILY [facility] Last Admin: 03/10/18 10:35 Dose: 250 mg Calcitriol (Rocaltrol -) 0.25 mcg PO DAILY [facility] Last Admin: 03/10/18 10:31 Dose: 0.25 mcg Calcium Carbonate (Os-Severo 500mg -) 1,000 mg PO DAILY [facility] Last Admin: 03/10/18 10:30 Dose: 1,000 mg Collagenase (Santyl -) 1 applic TP DAILY [facility]; Protocol Last Admin: 03/10/18 10:34 Dose: 1 applic Ergocalciferol (Drisdol -) 50,000 unit PO Q7D@1000 [facility] Last Admin: 03/09/18 10:32 Dose: 50,000 unit Gabapentin (Neurontin -) 600 mg PO BID [facility] Last Admin: 03/10/18 10:32 Dose: 600 mg Dextrose/Sodium Chloride (D5-1/2ns -) 1,000 mls @ 83 mls/hr IV ASDIR [facility] Last Admin: 03/10/18 15:34 Dose: Not Given Vancomycin HCl (Vancomycin (Pre-Docked)) 1,000 mg in 250 mls @ 166.667 mls/hr IVPB Q24H [facility]; Protocol Last Admin: 03/09/18 18:05 Dose: 166.667 mls/hr Meropenem 500 mg/ Dextrose 100 mls @ 200 mls/hr IVPB Q8H-IV [facility] Last Admin: 03/10/18 10:32 Dose: 200 mls/hr Levothyroxine Sodium (Synthroid -) 88 mcg PO DAILY@0700 [facility] Last Admin: 03/10/18 06:41 Dose: 88 mcg Metoprolol Tartrate (Lopressor -) 12.5 mg PO DAILY [facility] Last Admin: 03/10/18 10:29 Dose: 12.5 mg Pantoprazole Sodium (Protonix -) 40 mg PO DAILY [facility] Last Admin: 03/10/18 10:31 Dose: 40 mg Pramipexole Dihydrochloride (Mirapex -) 0.25 mg PO HS [facility] Last Admin: 03/09/18 21:36 Dose: 0.25 mg Tramadol HCl (Ultram -) 50 mg PO Q8H PRN PRN Reason: PAIN LEVEL 7 - 10 Last Admin: 03/08/18 16:51 Dose: 50 mg Valacyclovir HCl (Valtrex -) 500 mg PO DAILY@0600 [facility] Last Admin: 03/10/18 06:41 Dose: 500 mg Warfarin Sodium (Coumadin -) 2 mg PO DAILY@1800 [facility] Last Admin: 03/08/18 18:10 Dose: 2 mg Zinc Sulfate (Orazinc -) 220 mg PO DAILY [facility] Last Admin: 03/10/18 10:39 Dose: 220 mg Last Vital Signs Temp Pulse Resp BP Pulse Ox 100.3 F H 75 22 H 126/86 98 03/10/18 14:16 03/10/18 14:16 03/10/18 14:16 03/10/18 14:16 03/09/18 21:00 Alert in nad Lungs clear Heart reg Abd soft nontender Ext no edema CBC, BMP 03/10/18 06:30 03/10/18 06:30 IMP hypocalcemia hypoalbuminemia corrected calciul 8.8 Plan continue calcium/vit d replacements
[2018-03-10] MEDS ORDERED: MAGNESIUM SULF 50% (8.12 MEQ/2 ML-1 GM VIAL) IVPB ONE (16:45)
[2018-03-10] MEDS: VANCOMYCIN 1 GRAM (PRE-DOCKED) 1,000 MG/250 ML BAG IVPB SCH (19:15)
[2018-03-10] MEDS ORDERED: SODIUM CHLORIDE 500 ML IV STA (19:29)
[2018-03-10] MEDS: PRAMIPEXOLE DIHYDROCHLORIDE 0.25 MG TABLET PO SCH (21:36)
[2018-03-11] MEDS: traMADol HCL 50 MG TABLET PO PRN ×2 (00:49→20:10)
--- NOTE | 2018-03-11 00:56 | PN ---
Progress Note (short form) - Note Progress Note: Patient seen and examined 03/10/18 Feels better Last Vital Signs Temp Pulse Resp BP Pulse Ox 98.3 F 74 18 142/92 98 03/11/18 19:10 03/11/18 19:10 03/11/18 19:10 03/11/18 19:10 03/11/18 09:00 Cor: RSR, No murmurs, No gallops Lungs: Clear to P&A Abd: Soft, Normal bowel sounds, No organomegaly Ext:No significant edema Labs/MEds reviewed A/P Myeloma not in remission RLE cellulitis A /C-s/p LE DVT holding vrd will consult cardioogy regarding episods of bradycardia .
[2018-03-11] MEDS: MEROPENEM 500 MG in DEXTROSE 5%-WATER 100 ML IVPB SCH ×3 (02:15→17:21)
[2018-03-11] MEDS: DEXTROSE 5%-0.45% SALINE 1,000 ML IV SCH ×2 (02:15→17:21)
[2018-03-11] MEDS: ACETAMINOPHEN 325 MG TABLET (FP) PO PRN (05:35)
[2018-03-11] MEDS: LEVOTHYROXINE NA 88 MCG TABLET (FP) PO SCH (07:03)
[2018-03-11] MEDS: valACYclovir HCL 500 MG TABLET (FP) PO SCH (07:03)
[2018-03-11] MEDS ORDERED: PT OWN MED DRAWER 7, Y5N ONE ×2 (09:22→17:15)
[2018-03-11] MEDS: AMINO ACIDS/PROTEIN HYDROLYS 30 ML LIQUID.PKT PO SCH ×2 (09:28→17:21)
[2018-03-11] MEDS: CALCITRIOL 0.25 MCG CAPSULE (FP) PO SCH (09:29)
[2018-03-11] MEDS: ASCORBIC ACID 250 MG TABLET (FP) PO SCH (09:29)
[2018-03-11] MEDS: ZINC SULFATE 220 MG CAPSULE (FP) PO SCH (09:29)
[2018-03-11] MEDS: CALCIUM (OYSTER SHELL) 500 MG TABLET (FP) PO SCH (09:29)
[2018-03-11] MEDS: GABAPENTIN 300 MG CAPSULE (FP) PO SCH ×2 (09:29→21:47)
[2018-03-11] MEDS: PANTOPRAZOLE 40 MG TABLET (FP) PO SCH (09:29)
[2018-03-11] MEDS: METOPROLOL TARTRATE 25 MG TABLET (FP) PO SCH (09:38)
--- NOTE | 2018-03-11 12:09 | PN ---
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 HELD AND REPEAT BP 106/55 - Current Medication List Current Medications: Active Medications Acetaminophen (Tylenol -) 650 mg PO Q6H PRN PRN Reason: FEVER Last Admin: 03/11/18 05:35 Dose: 650 mg Amino Acids (Prosource No Carb Liquid Pkt) 30 ml PO BID@0800,1730 [facility] Last Admin: 03/11/18 09:28 Dose: 30 ml Ascorbic Acid (Vitamin C -) 250 mg PO DAILY [facility] Last Admin: 03/11/18 09:29 Dose: 250 mg Calcitriol (Rocaltrol -) 0.25 mcg PO DAILY [facility] Last Admin: 03/11/18 09:29 Dose: 0.25 mcg Calcium Carbonate (Os-Severo 500mg -) 1,000 mg PO DAILY [facility] Last Admin: 03/11/18 09:29 Dose: 1,000 mg Collagenase (Santyl -) 1 applic TP DAILY [facility]; Protocol Last Admin: 03/10/18 10:34 Dose: 1 applic Ergocalciferol (Drisdol -) 50,000 unit PO Q7D@1000 [facility] Last Admin: 03/09/18 10:32 Dose: 50,000 unit Gabapentin (Neurontin -) 600 mg PO BID [facility] Last Admin: 03/11/18 09:29 Dose: 600 mg Dextrose/Sodium Chloride (D5-1/2ns -) 1,000 mls @ 83 mls/hr IV ASDIR [facility] Last Admin: 03/11/18 02:15 Dose: 83 mls/hr Vancomycin HCl (Vancomycin (Pre-Docked)) 1,000 mg in 250 mls @ 166.667 mls/hr IVPB Q24H [facility]; Protocol Last Admin: 03/10/18 19:15 Dose: 166.667 mls/hr Meropenem 500 mg/ Dextrose 100 mls @ 200 mls/hr IVPB Q8H-IV [facility] Last Admin: 03/11/18 09:30 Dose: 200 mls/hr Levothyroxine Sodium (Synthroid -) 88 mcg PO DAILY@0700 [facility] Last Admin: 03/11/18 07:03 Dose: 88 mcg Metoprolol Tartrate (Lopressor -) 12.5 mg PO DAILY [facility] Last Admin: 03/11/18 09:38 Dose: Not Given Pantoprazole Sodium (Protonix -) 40 mg PO DAILY [facility] Last Admin: 03/11/18 09:29 Dose: 40 mg Pramipexole Dihydrochloride (Mirapex -) 0.25 mg PO HS [facility] Last Admin: 03/10/18 21:36 Dose: 0.25 mg Tramadol HCl (Ultram -) 50 mg PO Q8H PRN PRN Reason: PAIN LEVEL 7 - 10 Last Admin: 03/11/18 00:49 Dose: 50 mg Valacyclovir HCl (Valtrex -) 500 mg PO DAILY@0600 [facility] Last Admin: 03/11/18 07:03 Dose: 500 mg Warfarin Sodium (Coumadin -) 2 mg PO DAILY@1800 [facility] Last Admin: 03/08/18 18:10 Dose: 2 mg Zinc Sulfate (Orazinc -) 220 mg PO DAILY [facility] Last Admin: 03/11/18 09:29 Dose: 220 mg - Objective Vital Signs: Vital Signs Temperature 98.8 F 03/11/18 06:00 Pulse Rate 64 03/11/18 11:50 Respiratory Rate 18 03/11/18 11:50 Blood Pressure 106/56 L 03/11/18 11:50 O2 Sat by Pulse Oximetry (%) 95 03/10/18 09:00 Constitutional: Yes: No Distress Eyes: Yes: WNL Cardiovascular: Yes: Other (PVC AUSCULTATED) Respiratory: Yes: WNL, CTA Bilaterally Gastrointestinal: Yes: WNL, Normal Bowel Sounds, Soft Musculoskeletal: Yes: Muscle Weakness Extremities: Yes: Calf Tenderness (LEFT) Edema: No Wound/Incision: Yes: Dressing Dry and Intact (RLE) Neurological: Yes: Pre-Existing Deficit Labs: CBC, BMP 03/10/18 06:30 03/10/18 06:30 INR, PTT INR 3.91 (0.83-1.09) H 03/10/18 06:30 Problem List - Problems (1) Electrolyte abnormality Code(s): E87.8 - OTH DISORDERS OF ELECTROLYTE AND FLUID BALANCE, NEC (2) Hypercoagulable state Code(s): D68.59 - OTHER PRIMARY THROMBOPHILIA (3) Hypotension Code(s): I95.9 - HYPOTENSION, UNSPECIFIED (4) Supratherapeutic INR Code(s): R79.1 - ABNORMAL COAGULATION PROFILE (5) Wound of right lower extremity Code(s): S81.801A - UNSPECIFIED OPEN WOUND, RIGHT LOWER LEG, INITIAL ENCOUNTER (6) Afib Code(s): I48.91 - UNSPECIFIED ATRIAL FIBRILLATION (7) Anemia Code(s): D64.9 - ANEMIA, UNSPECIFIED Qualifiers: Anemia type: B12 deficiency 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
--- NOTE | 2018-03-11 14:59 | PN ---
Progress Note (short form) - Note Progress Note: covering dr ede Plaza 1. hypocalcemia 2. hypokalemia 3. multiple myeloma 4. hypothyroidism 5. htn Current Medications Acetaminophen (Tylenol -) 650 mg PO Q6H PRN PRN Reason: FEVER Last Admin: 03/11/18 05:35 Dose: 650 mg Amino Acids (Prosource No Carb Liquid Pkt) 30 ml PO BID@0800,1730 [facility] Last Admin: 03/11/18 09:28 Dose: 30 ml Ascorbic Acid (Vitamin C -) 250 mg PO DAILY [facility] Last Admin: 03/11/18 09:29 Dose: 250 mg Calcitriol (Rocaltrol -) 0.25 mcg PO DAILY [facility] Last Admin: 03/11/18 09:29 Dose: 0.25 mcg Calcium Carbonate (Os-Severo 500mg -) 1,000 mg PO DAILY [facility] Last Admin: 03/11/18 09:29 Dose: 1,000 mg Collagenase (Santyl -) 1 applic TP DAILY [facility]; Protocol Last Admin: 03/10/18 10:34 Dose: 1 applic Ergocalciferol (Drisdol -) 50,000 unit PO Q7D@1000 [facility] Last Admin: 03/09/18 10:32 Dose: 50,000 unit Gabapentin (Neurontin -) 600 mg PO BID [facility] Last Admin: 03/11/18 09:29 Dose: 600 mg Dextrose/Sodium Chloride (D5-1/2ns -) 1,000 mls @ 83 mls/hr IV ASDIR [facility] Last Admin: 03/11/18 02:15 Dose: 83 mls/hr Vancomycin HCl (Vancomycin (Pre-Docked)) 1,000 mg in 250 mls @ 166.667 mls/hr IVPB Q24H [facility]; Protocol Last Admin: 03/10/18 19:15 Dose: 166.667 mls/hr Meropenem 500 mg/ Dextrose 100 mls @ 200 mls/hr IVPB Q8H-IV [facility] Last Admin: 03/11/18 09:30 Dose: 200 mls/hr Levothyroxine Sodium (Synthroid -) 88 mcg PO DAILY@0700 [facility] Last Admin: 03/11/18 07:03 Dose: 88 mcg Metoprolol Tartrate (Lopressor -) 12.5 mg PO DAILY [facility] Last Admin: 11/17/18 09:38 Dose: Not Given Pantoprazole Sodium (Protonix -) 40 mg PO DAILY [facility] Last Admin: 03/11/18 09:29 Dose: 40 mg Pramipexole Dihydrochloride (Mirapex -) 0.25 mg PO HS [facility] Last Admin: 03/10/18 21:36 Dose: 0.25 mg Tramadol HCl (Ultram -) 50 mg PO Q8H PRN PRN Reason: PAIN LEVEL 7 - 10 Last Admin: 03/11/18 00:49 Dose: 50 mg Valacyclovir HCl (Valtrex -) 500 mg PO DAILY@0600 [facility] Last Admin: 03/11/18 07:03 Dose: 500 mg Warfarin Sodium (Coumadin -) 2 mg PO DAILY@1800 [facility] Last Admin: 03/08/18 18:10 Dose: 2 mg Zinc Sulfate (Orazinc -) 220 mg PO DAILY [facility] Last Admin: 03/11/18 09:29 Dose: 220 mg Last Vital Signs Temp Pulse Resp BP Pulse Ox 98.8 F 64 18 106/56 L 95 03/11/18 06:00 03/11/18 11:50 03/11/18 11:50 03/11/18 11:50 03/10/18 09:00 Alert in nad Lungs clear Heart reg Abd soft nontender Ext no edema CBC, BMP 03/10/18 06:30 03/10/18 06:30 IMP hypocalcemia hypoalbuminemia corrected calciul 8.8 no new labs f/u cmp tomorrow Plan continue calcium/vit d replacements
--- NOTE | 2018-03-11 15:02 | EKG ---
Test Reason : Blood Pressure : / mmHG Vent. Rate : 062 BPM Atrial Rate : 062 BPM P-R Int : 124 ms QRS Dur : 088 ms QT Int : 406 ms P-R-T Axes : 045 000 031 degrees QTc Int : 412 ms SINUS RHYTHM PREMATURE ATRIAL COMPLEXES LEFT VENTRICULAR HYPERTROPHY LEFT ATRIAL ENLARGEMENT WHEN COMPARED WITH ECG OF 06-MAR-2018 10:41, PREMATURE ATRIAL COMPLEXES IS NOW PRESENT Confirmed by Logan Coleman ([id number]) on 03/11/2018 3:01:35 PM Referred By: Raghavendra HAMM Confirmed By:Logan Coleman
[2018-03-11] MEDS: VANCOMYCIN 1 GRAM (PRE-DOCKED) 1,000 MG/250 ML BAG IVPB SCH (16:00)
[2018-03-11 16:37] LABS: PROTHROMBIN TIME (PATIENT) 52.1 SEC (9.7-13.0)
[2018-03-11 16:41] LABS: INR 4.35 (0.83-1.09)
--- NOTE | 2018-03-11 16:42 | PN ---
Progress Note, Physician - Current Medication List Current Medications: Active Medications Acetaminophen (Tylenol -) 650 mg PO Q6H PRN PRN Reason: FEVER Last Admin: 03/11/18 05:35 Dose: 650 mg Amino Acids (Prosource No Carb Liquid Pkt) 30 ml PO BID@0800,1730 [facility] Last Admin: 03/11/18 09:28 Dose: 30 ml Ascorbic Acid (Vitamin C -) 250 mg PO DAILY [facility] Last Admin: 03/11/18 09:29 Dose: 250 mg Calcitriol (Rocaltrol -) 0.25 mcg PO DAILY [facility] Last Admin: 03/11/18 09:29 Dose: 0.25 mcg Calcium Carbonate (Os-Severo 500mg -) 1,000 mg PO DAILY [facility] Last Admin: 03/11/18 09:29 Dose: 1,000 mg Collagenase (Santyl -) 1 applic TP DAILY [facility]; Protocol Last Admin: 03/10/18 10:34 Dose: 1 applic Ergocalciferol (Drisdol -) 50,000 unit PO Q7D@1000 [facility] Last Admin: 03/09/18 10:32 Dose: 50,000 unit Gabapentin (Neurontin -) 600 mg PO BID [facility] Last Admin: 03/11/18 09:29 Dose: 600 mg Dextrose/Sodium Chloride (D5-1/2ns -) 1,000 mls @ 83 mls/hr IV ASDIR [facility] Last Admin: 03/11/18 02:15 Dose: 83 mls/hr Vancomycin HCl (Vancomycin (Pre-Docked)) 1,000 mg in 250 mls @ 166.667 mls/hr IVPB Q24H [facility]; Protocol Last Admin: 03/11/18 16:00 Dose: 166.667 mls/hr Meropenem 500 mg/ Dextrose 100 mls @ 200 mls/hr IVPB Q8H-IV [facility] Last Admin: 03/11/18 09:30 Dose: 200 mls/hr Levothyroxine Sodium (Synthroid -) 88 mcg PO DAILY@0700 [facility] Last Admin: 03/11/18 07:03 Dose: 88 mcg Metoprolol Tartrate (Lopressor -) 12.5 mg PO DAILY [facility] Last Admin: 03/11/18 09:38 Dose: Not Given Pantoprazole Sodium (Protonix -) 40 mg PO DAILY [facility] Last Admin: 03/11/18 09:29 Dose: 40 mg Pramipexole Dihydrochloride (Mirapex -) 0.25 mg PO HS [facility] Last Admin: 03/10/18 21:36 Dose: 0.25 mg Tramadol HCl (Ultram -) 50 mg PO Q8H PRN PRN Reason: PAIN LEVEL 7 - 10 Last Admin: 03/11/18 00:49 Dose: 50 mg Valacyclovir HCl (Valtrex -) 500 mg PO DAILY@0600 [facility] Last Admin: 03/11/18 07:03 Dose: 500 mg Warfarin Sodium (Coumadin -) 2 mg PO DAILY@1800 [facility] Last Admin: 03/08/18 18:10 Dose: 2 mg Zinc Sulfate (Orazinc -) 220 mg PO DAILY [facility] Last Admin: 03/11/18 09:29 Dose: 220 mg - Objective Vital Signs: Vital Signs Temperature 98.6 F 03/11/18 15:27 Pulse Rate 66 03/11/18 15:27 Respiratory Rate 18 03/11/18 15:27 Blood Pressure 130/56 L 03/11/18 15:27 O2 Sat by Pulse Oximetry (%) 98 03/11/18 09:00 Labs: CBC, BMP 03/10/18 06:30 INR, PTT INR 4.35 (0.83-1.09) H* 03/11/18 16:00 Problem List - Problems (1) Electrolyte abnormality Code(s): E87.8 - OTH DISORDERS OF ELECTROLYTE AND FLUID BALANCE, NEC (2) Hypercoagulable state Code(s): D68.59 - OTHER PRIMARY THROMBOPHILIA (3) Hypotension Code(s): I95.9 - HYPOTENSION, UNSPECIFIED (4) Supratherapeutic INR Code(s): R79.1 - ABNORMAL COAGULATION PROFILE (5) Wound of right lower extremity Code(s): S81.801A - UNSPECIFIED OPEN WOUND, RIGHT LOWER LEG, INITIAL ENCOUNTER (6) Afib Code(s): I48.91 - UNSPECIFIED ATRIAL FIBRILLATION (7) Anemia Code(s): D64.9 - ANEMIA, UNSPECIFIED Qualifiers: Anemia type: B12 deficiency 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
[2018-03-11] MEDS: COLLAGENASE CLOSTRIDIUM HIST. 30 GRAMS TUBE TP SCH (17:00)
[2018-03-11 17:03] LABS: ALBUMIN 1.5 g/dl (3.4-5.0); ALK PHOS 74 U/L (45-117); ANION GAP 9 MMOL/L (8-16); BILIRUBIN,TOTAL 0.3 mg/dL (0.2-1); BLOOD UREA NITROGEN 12 mg/dL (7-18); CALCIUM 7.9 mg/dL (8.5-10.1); CHLORIDE 106 mmol/L (98-107); CO2 25 mmol/L (21-32); CREATININE 0.6 mg/dL (0.55-1.3); GLUCOSE,RANDOM 92 mg/dL (74-106); POTASSIUM 3.7 mmol/L (3.5-5.1); SGOT/AST 44 U/L (15-37); SGPT/ALT 40 U/L (13-61); SODIUM 139 mmol/L (136-145); TOT PROT 4.6 g/dl (6.4-8.2)
--- NOTE | 2018-03-11 17:37 | PN ---
Progress Note, Physician Chief Complaint: RLE cellulitis and wound infection History of Present Illness: Feels well. No complaints. Denies bleeding. - Current Medication List Current Medications: Active Medications Acetaminophen (Tylenol -) 650 mg PO Q6H PRN PRN Reason: FEVER Last Admin: 03/11/18 05:35 Dose: 650 mg Amino Acids (Prosource No Carb Liquid Pkt) 30 ml PO BID@0800,1730 [facility] Last Admin: 03/11/18 17:21 Dose: 30 ml Ascorbic Acid (Vitamin C -) 250 mg PO DAILY [facility] Last Admin: 03/11/18 09:29 Dose: 250 mg Calcitriol (Rocaltrol -) 0.25 mcg PO DAILY [facility] Last Admin: 03/11/18 09:29 Dose: 0.25 mcg Calcium Carbonate (Os-Severo 500mg -) 1,000 mg PO DAILY [facility] Last Admin: 03/11/18 09:29 Dose: 1,000 mg Collagenase (Santyl -) 1 applic TP DAILY [facility]; Protocol Last Admin: 03/10/18 10:34 Dose: 1 applic Ergocalciferol (Drisdol -) 50,000 unit PO Q7D@1000 [facility] Last Admin: 03/09/18 10:32 Dose: 50,000 unit Gabapentin (Neurontin -) 600 mg PO BID [facility] Last Admin: 03/11/18 09:29 Dose: 600 mg Dextrose/Sodium Chloride (D5-1/2ns -) 1,000 mls @ 83 mls/hr IV ASDIR [facility] Last Admin: 03/11/18 17:21 Dose: 83 mls/hr Vancomycin HCl (Vancomycin (Pre-Docked)) 1,000 mg in 250 mls @ 166.667 mls/hr IVPB Q24H [facility]; Protocol Last Admin: 03/11/18 16:00 Dose: 166.667 mls/hr Meropenem 500 mg/ Dextrose 100 mls @ 200 mls/hr IVPB Q8H-IV [facility] Last Admin: 03/11/18 17:21 Dose: 200 mls/hr Levothyroxine Sodium (Synthroid -) 88 mcg PO DAILY@0700 [facility] Last Admin: 03/11/18 07:03 Dose: 88 mcg Metoprolol Tartrate (Lopressor -) 12.5 mg PO DAILY [facility] Last Admin: 03/11/18 09:38 Dose: Not Given Pantoprazole Sodium (Protonix -) 40 mg PO DAILY [facility] Last Admin: 03/11/18 09:29 Dose: 40 mg Pramipexole Dihydrochloride (Mirapex -) 0.25 mg PO HS [facility] Last Admin: 03/10/18 21:36 Dose: 0.25 mg Tramadol HCl (Ultram -) 50 mg PO Q8H PRN PRN Reason: PAIN LEVEL 7 - 10 Last Admin: 03/11/18 00:49 Dose: 50 mg Valacyclovir HCl (Valtrex -) 500 mg PO DAILY@0600 [facility] Last Admin: 03/11/18 07:03 Dose: 500 mg Warfarin Sodium (Coumadin -) 2 mg PO DAILY@1800 [facility] Last Admin: 03/08/18 18:10 Dose: 2 mg Zinc Sulfate (Orazinc -) 220 mg PO DAILY [facility] Last Admin: 03/11/18 09:29 Dose: 220 mg - Objective Vital Signs: Vital Signs Temperature 98.6 F 03/11/18 15:27 Pulse Rate 66 03/11/18 15:27 Respiratory Rate 18 03/11/18 15:27 Blood Pressure 130/56 L 03/11/18 15:27 O2 Sat by Pulse Oximetry (%) 98 03/11/18 09:00 Constitutional: Yes: No Distress, Calm Cardiovascular: Yes: WNL, Regular Rate and Rhythm Respiratory: Yes: Regular, CTA Bilaterally Gastrointestinal: Yes: WNL Extremities: Yes: Other (RLE with clean dressings in place) Edema: No Labs: CBC, BMP 03/10/18 06:30 03/11/18 16:00 INR, PTT INR 4.35 (0.83-1.09) H* 03/11/18 16:00 Problem List - Problems (1) Wound of right lower extremity Assessment/Plan: c/w wound care and Abx Code(s): S81.801A - UNSPECIFIED OPEN WOUND, RIGHT LOWER LEG, INITIAL ENCOUNTER (2) Multiple myeloma Assessment/Plan: on RVD, currently holding Code(s): C90.00 - MULTIPLE MYELOMA NOT HAVING ACHIEVED REMISSION (3) Hypercoagulable state Assessment/Plan: Supratherapeutic INR without bleeding. Cont to hold warfarin Code(s): D68.59 - OTHER PRIMARY THROMBOPHILIA
[2018-03-11] MEDS: PRAMIPEXOLE DIHYDROCHLORIDE 0.25 MG TABLET PO SCH (21:47)
[2018-03-12] MEDS: MEROPENEM 500 MG in DEXTROSE 5%-WATER 100 ML IVPB SCH ×3 (02:30→18:31)
[2018-03-12] MEDS: DEXTROSE 5%-0.45% SALINE 1,000 ML IV SCH ×3 (06:49→23:03)
[2018-03-12] MEDS: LEVOTHYROXINE NA 88 MCG TABLET (FP) PO SCH (06:49)
[2018-03-12] MEDS: valACYclovir HCL 500 MG TABLET (FP) PO SCH (06:49)
[2018-03-12] MEDS: traMADol HCL 50 MG TABLET PO PRN ×3 (07:00→23:03)
[2018-03-12 07:59] LABS: ALBUMIN 1.4 g/dl (3.4-5.0); ALK PHOS 67 U/L (45-117); ANION GAP 9 MMOL/L (8-16); BILIRUBIN,TOTAL 0.4 mg/dL (0.2-1); BLOOD UREA NITROGEN 9 mg/dL (7-18); CALCIUM 7.3 mg/dL (8.5-10.1); CHLORIDE 104 mmol/L (98-107); CO2 26 mmol/L (21-32); CREATININE 0.5 mg/dL (0.55-1.3); GLUCOSE,RANDOM 79 mg/dL (74-106); SGOT/AST 38 U/L (15-37); SGPT/ALT 37 U/L (13-61); SODIUM 139 mmol/L (136-145); TOT PROT 4.3 g/dl (6.4-8.2)
[2018-03-12 08:42] LABS: POTASSIUM 2.9 mmol/L (3.5-5.1)
--- NOTE | 2018-03-12 09:04 | PN ---
Progress Note, Physician Chief Complaint: RLE cellulitis and wound infection History of Present Illness: Feels well. No complaints. Denies bleeding. - Current Medication List Current Medications: Active Medications Acetaminophen (Tylenol -) 650 mg PO Q6H PRN PRN Reason: FEVER Last Admin: 03/11/18 05:35 Dose: 650 mg Amino Acids (Prosource No Carb Liquid Pkt) 30 ml PO BID@0800,1730 [facility] Last Admin: 03/11/18 17:21 Dose: 30 ml Ascorbic Acid (Vitamin C -) 250 mg PO DAILY [facility] Last Admin: 03/11/18 09:29 Dose: 250 mg Calcitriol (Rocaltrol -) 0.25 mcg PO DAILY [facility] Last Admin: 03/11/18 09:29 Dose: 0.25 mcg Calcium Carbonate (Os-Severo 500mg -) 1,000 mg PO DAILY [facility] Last Admin: 03/11/18 09:29 Dose: 1,000 mg Collagenase (Santyl -) 1 applic TP DAILY [facility]; Protocol Last Admin: 03/11/18 17:00 Dose: 1 applic Ergocalciferol (Drisdol -) 50,000 unit PO Q7D@1000 [facility] Last Admin: 03/09/18 10:32 Dose: 50,000 unit Gabapentin (Neurontin -) 600 mg PO BID [facility] Last Admin: 03/11/18 21:47 Dose: 600 mg Dextrose/Sodium Chloride (D5-1/2ns -) 1,000 mls @ 83 mls/hr IV ASDIR [facility] Last Admin: 03/12/18 06:49 Dose: 83 mls/hr Vancomycin HCl (Vancomycin (Pre-Docked)) 1,000 mg in 250 mls @ 166.667 mls/hr IVPB Q24H [facility]; Protocol Last Admin: 03/11/18 16:00 Dose: 166.667 mls/hr Meropenem 500 mg/ Dextrose 100 mls @ 200 mls/hr IVPB Q8H-IV [facility] Last Admin: 03/12/18 02:30 Dose: 200 mls/hr Levothyroxine Sodium (Synthroid -) 88 mcg PO DAILY@0700 [facility] Last Admin: 03/12/18 06:49 Dose: 88 mcg Metoprolol Tartrate (Lopressor -) 12.5 mg PO DAILY [facility] Last Admin: 03/11/18 09:38 Dose: Not Given Pantoprazole Sodium (Protonix -) 40 mg PO DAILY [facility] Last Admin: 03/11/18 09:29 Dose: 40 mg Pramipexole Dihydrochloride (Mirapex -) 0.25 mg PO HS [facility] Last Admin: 03/11/18 21:47 Dose: 0.25 mg Tramadol HCl (Ultram -) 50 mg PO Q8H PRN PRN Reason: PAIN LEVEL 7 - 10 Last Admin: 03/12/18 07:00 Dose: 50 mg Valacyclovir HCl (Valtrex -) 500 mg PO DAILY@0600 [facility] Last Admin: 03/12/18 06:49 Dose: 500 mg Warfarin Sodium (Coumadin -) 2 mg PO DAILY@1800 [facility] Last Admin: 03/08/18 18:10 Dose: 2 mg Zinc Sulfate (Orazinc -) 220 mg PO DAILY [facility] Last Admin: 03/11/18 09:29 Dose: 220 mg - Objective Vital Signs: Vital Signs Temperature 98.1 F 03/12/18 06:00 Pulse Rate 67 03/12/18 06:00 Respiratory Rate 18 03/12/18 06:00 Blood Pressure 106/50 L 03/12/18 06:00 O2 Sat by Pulse Oximetry (%) 98 03/11/18 09:00 Constitutional: Yes: No Distress Eyes: Yes: WNL Cardiovascular: Yes: Regular Rate and Rhythm Respiratory: Yes: CTA Bilaterally Gastrointestinal: Yes: WNL, Soft Extremities: Yes: Other (Clean, dry dressing in place over wound) Edema: No Labs: CBC, BMP 03/10/18 06:30 03/12/18 06:00 INR, PTT INR 4.35 (0.83-1.09) H* 03/11/18 16:00 Problem List - Problems (1) Wound of right lower extremity Assessment/Plan: c/w wound care and Abx Code(s): S81.801A - UNSPECIFIED OPEN WOUND, RIGHT LOWER LEG, INITIAL ENCOUNTER (2) Multiple myeloma Assessment/Plan: on RVD, currently holding Code(s): C90.00 - MULTIPLE MYELOMA NOT HAVING ACHIEVED REMISSION (3) Hypercoagulable state Assessment/Plan: Still with supratherapeutic INR yesterday afternoon without bleeding. No INR checked today. Cont to hold warfarin Please check INR yuridia am. Code(s): D68.59 - OTHER PRIMARY THROMBOPHILIA
[2018-03-12] MEDS: METOPROLOL TARTRATE 25 MG TABLET (FP) PO SCH (10:30)
[2018-03-12] MEDS ORDERED: PT OWN MED DRAWER 7, Y5N ONE ×2 (10:30→15:01)
[2018-03-12] MEDS: POTASSIUM CHLORIDE TABS 20 MEQ TABLET.ER (FP) PO SCH ×3 (10:39→19:06)
[2018-03-12] MEDS: GABAPENTIN 300 MG CAPSULE (FP) PO SCH ×2 (10:39→21:47)
[2018-03-12] MEDS: CALCIUM (OYSTER SHELL) 500 MG TABLET (FP) PO SCH (10:39)
[2018-03-12] MEDS: AMINO ACIDS/PROTEIN HYDROLYS 30 ML LIQUID.PKT PO SCH ×2 (10:39→17:28)
[2018-03-12] MEDS: ZINC SULFATE 220 MG CAPSULE (FP) PO SCH (10:40)
[2018-03-12] MEDS: CALCITRIOL 0.25 MCG CAPSULE (FP) PO SCH (10:40)
[2018-03-12] MEDS: PANTOPRAZOLE 40 MG TABLET (FP) PO SCH (10:40)
--- NOTE | 2018-03-12 11:17 | CONSULT ---
Consult - text type - Consultation Consultation Note: Cardiology (Dr. Mckenzie covering Dr. Beasley) Patient seen and examined Reason for consult: Bradycardia Brand Leader: Dr. Valentino 87F h/o DM, cellulitis, mult myeloma, afib and DVT on coumadin Recent admission in 11/2017 for right foot cellulitis. Now admitted on 03/06/2018 for sepsis with hypotension , hypoglycemia and lactic acidosis with LE chronic wound care She has no cardiac complaints, no chest pains, dyspnea, dizziness, palpitations or lightheadedness An ECG done 03/11/2018 showed NSR at 73/min with 2 PVCs with LVH Prior cardiac studies reviewed: MPI 2013 (damir): no STs; no ischemia; nl EF Echo 09/08: nl LV size and function, EF 55-60%, mild AR, RA mildly enlarged, mild -mod TR, aorta atherosclerotic plaque present Echo 2014: nl LVSF; nl RV; mild-mod AI; mod TR; RVSP 40-50 Prior EKG sinus with PACs, LVH Allergies, Social Hx and Family Hx reviewed PE: Febrile, BP [id number], p68/min No distress, comfotable JVP normal Regular rate, no murmurs Lungs are clear bilaterally No edema Right foot dressing intact Labs: Hgb 9.5, INR 4.35, K 2.9, Ca 6.5 87F h/o DM, cellulitis, mult myeloma, afib and DVT on coumadin, hypothyroidism p /w fever with hypotension concerns for sepsis 1) Abnormal ECG -rare PVCs and PAC likely due to ongoing septic process and electrolyte imbalance -Preserved LV function on last echo -Would Continue Metoprolol 12.5mg daily (Hold for SBP <90mmHg) -Needs aggressive repletion of potassium - fever, cellulitis - on abx - ID following Afib - in sr - Would hold coumadin given INR 4.35 today, no bleeding
--- NOTE | 2018-03-12 12:45 | PN ---
Progress Note, Physician Chief Complaint: AWAKE ALERT NAD - Current Medication List Current Medications: Active Medications Acetaminophen (Tylenol -) 650 mg PO Q6H PRN PRN Reason: FEVER Last Admin: 03/11/18 05:35 Dose: 650 mg Amino Acids (Prosource No Carb Liquid Pkt) 30 ml PO BID@0800,1730 [facility] Last Admin: 03/12/18 10:39 Dose: 30 ml Ascorbic Acid (Vitamin C -) 250 mg PO DAILY [facility] Last Admin: 03/11/18 09:29 Dose: 250 mg Calcitriol (Rocaltrol -) 0.25 mcg PO DAILY [facility] Last Admin: 03/12/18 10:40 Dose: 0.25 mcg Calcium Carbonate (Os-Severo 500mg -) 1,000 mg PO DAILY [facility] Last Admin: 03/12/18 10:39 Dose: 1,000 mg Collagenase (Santyl -) 1 applic TP DAILY [facility]; Protocol Last Admin: 03/11/18 17:00 Dose: 1 applic Ergocalciferol (Drisdol -) 50,000 unit PO Q7D@1000 [facility] Last Admin: 03/09/18 10:32 Dose: 50,000 unit Gabapentin (Neurontin -) 600 mg PO BID [facility] Last Admin: 03/12/18 10:39 Dose: 600 mg Dextrose/Sodium Chloride (D5-1/2ns -) 1,000 mls @ 83 mls/hr IV ASDIR [facility] Last Admin: 03/12/18 06:49 Dose: 83 mls/hr Vancomycin HCl (Vancomycin (Pre-Docked)) 1,000 mg in 250 mls @ 166.667 mls/hr IVPB Q24H [facility]; Protocol Last Admin: 03/11/18 16:00 Dose: 166.667 mls/hr Meropenem 500 mg/ Dextrose 100 mls @ 200 mls/hr IVPB Q8H-IV [facility] Last Admin: 03/12/18 10:40 Dose: 200 mls/hr Levothyroxine Sodium (Synthroid -) 88 mcg PO DAILY@0700 [facility] Last Admin: 03/12/18 06:49 Dose: 88 mcg Metoprolol Tartrate (Lopressor -) 12.5 mg PO DAILY [facility] Last Admin: 03/12/18 10:30 Dose: Not Given Pantoprazole Sodium (Protonix -) 40 mg PO DAILY [facility] Last Admin: 03/12/18 10:40 Dose: 40 mg Potassium Chloride (K-Dur -) 20 meq PO Q4H [facility] Stop: 03/12/18 18:01 Last Admin: 03/12/18 10:39 Dose: 20 meq Pramipexole Dihydrochloride (Mirapex -) 0.25 mg PO HS [facility] Last Admin: 03/11/18 21:47 Dose: 0.25 mg Tramadol HCl (Ultram -) 50 mg PO Q8H PRN PRN Reason: PAIN LEVEL 7 - 10 Last Admin: 03/12/18 07:00 Dose: 50 mg Valacyclovir HCl (Valtrex -) 500 mg PO DAILY@0600 [facility] Last Admin: 03/12/18 06:49 Dose: 500 mg Warfarin Sodium (Coumadin -) 2 mg PO DAILY@1800 [facility] Last Admin: 03/08/18 18:10 Dose: 2 mg Zinc Sulfate (Orazinc -) 220 mg PO DAILY [facility] Last Admin: 03/12/18 10:40 Dose: 220 mg - Objective Vital Signs: Vital Signs Temperature 98.1 F 03/12/18 06:00 Pulse Rate 67 03/12/18 06:00 Respiratory Rate 18 03/12/18 06:00 Blood Pressure 106/50 L 03/12/18 06:00 O2 Sat by Pulse Oximetry (%) 98 03/11/18 09:00 Constitutional: Yes: No Distress Cardiovascular: Yes: Pulse Irregular Respiratory: Yes: WNL Gastrointestinal: Yes: WNL, Soft Genitourinary: Yes: Incontinence Musculoskeletal: Yes: Muscle Weakness Edema: No Integumentary: Yes: Erythema, Rash, Venous Stasis Changes Wound/Incision: Yes: Dressing Dry and Intact Neurological: Yes: Pre-Existing Deficit ...Motor Strength: RLE Psychiatric: Yes: WNL Labs: CBC, BMP 03/10/18 06:30 03/12/18 06:00 INR, PTT INR 4.35 (0.83-1.09) H* 03/11/18 16:00 Problem List - Problems (1) Electrolyte abnormality Code(s): E87.8 - OTH DISORDERS OF ELECTROLYTE AND FLUID BALANCE, NEC (2) Hypercoagulable state Code(s): D68.59 - OTHER PRIMARY THROMBOPHILIA (3) Hypotension Code(s): I95.9 - HYPOTENSION, UNSPECIFIED (4) Supratherapeutic INR Code(s): R79.1 - ABNORMAL COAGULATION PROFILE (5) Wound of right lower extremity Code(s): S81.801A - UNSPECIFIED OPEN WOUND, RIGHT LOWER LEG, INITIAL ENCOUNTER (6) Afib Code(s): I48.91 - UNSPECIFIED ATRIAL FIBRILLATION (7) Anemia Code(s): D64.9 - ANEMIA, UNSPECIFIED Qualifiers: Anemia type: B12 deficiency 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
--- NOTE | 2018-03-12 12:48 | EKG ---
Test Reason : Blood Pressure : / mmHG Vent. Rate : 073 BPM Atrial Rate : 063 BPM P-R Int : 118 ms QRS Dur : 090 ms QT Int : 406 ms P-R-T Axes : 049 003 039 degrees QTc Int : 447 ms SINUS RHYTHM WITH OCCASIONAL PREMATURE VENTRICULAR COMPLEXES LEFT ATRIAL ENLARGEMENT WHEN COMPARED WITH ECG OF 11-MAR-2018 12:11, PREMATURE VENTRICULAR COMPLEXES ARE NOW PRESENT PREMATURE ATRIAL COMPLEXES ARE NO LONGER PRESENT Confirmed by Logan Coleman ([id number]) on 03/12/2018 12:48:05 PM Referred By: Raghavendra HAMM Confirmed By:Logan Coleman
[2018-03-12 14:32] LABS: MAGNESIUM 1.6 mg/dL (1.8-2.4)
[2018-03-12] MEDS: ASCORBIC ACID 250 MG TABLET (FP) PO SCH (15:04)
[2018-03-12] MEDS: VANCOMYCIN 1 GRAM (PRE-DOCKED) 1,000 MG/250 ML BAG IVPB SCH (15:29)
[2018-03-12] MEDS ORDERED: MAGNESIUM SULF 50% (8.12 MEQ/2 ML-1 GM VIAL) IVPB ONE (16:30)
--- NOTE | 2018-03-12 17:17 | PN ---
Progress Note (short form) - Note Progress Note: covering dr ede Plaza 1. hypocalcemia 2. hypokalemia 3. multiple myeloma 4. hypothyroidism 5. htn Current Medications Acetaminophen (Tylenol -) 650 mg PO Q6H PRN PRN Reason: FEVER Last Admin: 03/11/18 05:35 Dose: 650 mg Amino Acids (Prosource No Carb Liquid Pkt) 30 ml PO BID@0800,1730 [facility] Last Admin: 03/12/18 10:39 Dose: 30 ml Ascorbic Acid (Vitamin C -) 250 mg PO DAILY [facility] Last Admin: 03/12/18 15:04 Dose: 250 mg Calcitriol (Rocaltrol -) 0.25 mcg PO DAILY [facility] Last Admin: 03/12/18 10:40 Dose: 0.25 mcg Calcium Carbonate (Os-Severo 500mg -) 1,000 mg PO DAILY [facility] Last Admin: 03/12/18 10:39 Dose: 1,000 mg Collagenase (Santyl -) 1 applic TP DAILY [facility]; Protocol Last Admin: 03/11/18 17:00 Dose: 1 applic Ergocalciferol (Drisdol -) 50,000 unit PO Q7D@1000 [facility] Last Admin: 03/09/18 10:32 Dose: 50,000 unit Gabapentin (Neurontin -) 600 mg PO BID [facility] Last Admin: 03/12/18 10:39 Dose: 600 mg Dextrose/Sodium Chloride (D5-1/2ns -) 1,000 mls @ 83 mls/hr IV ASDIR [facility] Last Admin: 03/12/18 06:49 Dose: 83 mls/hr Vancomycin HCl (Vancomycin (Pre-Docked)) 1,000 mg in 250 mls @ 166.667 mls/hr IVPB Q24H [facility]; Protocol Last Admin: 03/12/18 15:29 Dose: 166.667 mls/hr Meropenem 500 mg/ Dextrose 100 mls @ 200 mls/hr IVPB Q8H-IV [facility] Last Admin: 03/12/18 10:40 Dose: 200 mls/hr Levothyroxine Sodium (Synthroid -) 88 mcg PO DAILY@0700 [facility] Last Admin: 03/12/18 06:49 Dose: 88 mcg Metoprolol Tartrate (Lopressor -) 12.5 mg PO DAILY [facility] Last Admin: 03/12/18 10:30 Dose: Not Given Pantoprazole Sodium (Protonix -) 40 mg PO DAILY [facility] Last Admin: 03/12/18 10:40 Dose: 40 mg Potassium Chloride (K-Dur -) 20 meq PO Q4H [facility] Stop: 03/12/18 18:01 Last Admin: 03/12/18 15:04 Dose: 20 meq Pramipexole Dihydrochloride (Mirapex -) 0.25 mg PO HS [facility] Last Admin: 03/11/18 21:47 Dose: 0.25 mg Tramadol HCl (Ultram -) 50 mg PO Q8H PRN PRN Reason: PAIN LEVEL 7 - 10 Last Admin: 03/12/18 15:10 Dose: 50 mg Valacyclovir HCl (Valtrex -) 500 mg PO DAILY@0600 [facility] Last Admin: 03/12/18 06:49 Dose: 500 mg Warfarin Sodium (Coumadin -) 2 mg PO DAILY@1800 [facility] Last Admin: 03/08/18 18:10 Dose: 2 mg Zinc Sulfate (Orazinc -) 220 mg PO DAILY [facility] Last Admin: 03/12/18 10:40 Dose: 220 mg Last Vital Signs Temp Pulse Resp BP Pulse Ox 98.4 F 72 18 120/58 L 100 03/12/18 12:00 03/12/18 13:46 03/12/18 13:46 03/12/18 13:46 03/12/18 09:00 Alert in nad Lungs clear Heart reg Abd soft nontender Ext no edema CBC, BMP 03/12/18 06:00 CBC, BMP 03/10/18 06:30 PTH 70 IMP secondary Hyperpara s/p hypocalcemia hypoalbuminemia corrected calciul 8.8 Plan continue calcium/vit d replacements
[2018-03-12] MEDS: COLLAGENASE CLOSTRIDIUM HIST. 30 GRAMS TUBE TP SCH (17:54)
[2018-03-12] MEDS: PRAMIPEXOLE DIHYDROCHLORIDE 0.25 MG TABLET PO SCH (21:47)
[2018-03-13] MEDS: MEROPENEM 500 MG in DEXTROSE 5%-WATER 100 ML IVPB SCH ×2 (03:06→09:31)
[2018-03-13] MEDS: valACYclovir HCL 500 MG TABLET (FP) PO SCH (06:39)
[2018-03-13] MEDS: LEVOTHYROXINE NA 88 MCG TABLET (FP) PO SCH (06:39)
[2018-03-13 06:49] LABS: HEMATOCRIT 26.8 % (32.4-45.2); HEMOGLOBIN 8.6 GM/dL (10.7-15.3); MCH 30.3 pg (25.7-33.7); MCHC 32.1 g/dl (32.0-36.0); MEAN CELL VOLUME 94.4 fl (80-96); MEAN PLT VOLUME 7.4 fl (7.5-11.1); PLATELET COUNT 234 K/MM3 (134-434); RBC 2.84 M/mm3 (3.60-5.2); RDW 19.5 % (11.6-15.6)
[2018-03-13 07:09] LABS: INR 2.36 (0.83-1.09); PROTHROMBIN TIME (PATIENT) 28.1 SEC (9.7-13.0)
[2018-03-13 09:03] LABS: ALBUMIN 1.4 g/dl (3.4-5.0); ALK PHOS 64 U/L (45-117); ANION GAP 0 MMOL/L (8-16); BILIRUBIN,TOTAL 0.3 mg/dL (0.2-1); BLOOD UREA NITROGEN 9 mg/dL (7-18); CALCIUM 7.3 mg/dL (8.5-10.1); CHLORIDE 111 mmol/L (98-107); CO2 28 mmol/L (21-32); CREATININE 0.6 mg/dL (0.55-1.3); GLUCOSE,RANDOM 94 mg/dL (74-106); MAGNESIUM 1.9 mg/dL (1.8-2.4); POTASSIUM 3.5 mmol/L (3.5-5.1); SGOT/AST 36 U/L (15-37); SGPT/ALT 40 U/L (13-61); SODIUM 139 mmol/L (136-145); TOT PROT 4.4 g/dl (6.4-8.2)
[2018-03-13] MEDS: GABAPENTIN 300 MG CAPSULE (FP) PO SCH ×2 (09:31→21:31)
[2018-03-13] MEDS: CALCIUM (OYSTER SHELL) 500 MG TABLET (FP) PO SCH (09:31)
[2018-03-13] MEDS: CALCITRIOL 0.25 MCG CAPSULE (FP) PO SCH (09:31)
[2018-03-13] MEDS: AMINO ACIDS/PROTEIN HYDROLYS 30 ML LIQUID.PKT PO SCH ×2 (09:32→17:54)
[2018-03-13] MEDS: ZINC SULFATE 220 MG CAPSULE (FP) PO SCH (09:32)
[2018-03-13] MEDS: PANTOPRAZOLE 40 MG TABLET (FP) PO SCH (09:32)
[2018-03-13] MEDS: ASCORBIC ACID 250 MG TABLET (FP) PO SCH (09:32)
[2018-03-13] MEDS: METOPROLOL TARTRATE 25 MG TABLET (FP) PO SCH (09:33)
[2018-03-13] MEDS: traMADol HCL 50 MG TABLET PO PRN ×2 (11:45→21:31)
[2018-03-13] MEDS ORDERED: POTASSIUM CHLORIDE TABS 20 MEQ TABLET.ER (FP) PO ONE (11:54)
--- NOTE | 2018-03-13 12:00 | PN ---
Progress Note, Physician Chief Complaint: patient seen and examined - Current Medication List Current Medications: Active Medications Acetaminophen (Tylenol -) 650 mg PO Q6H PRN PRN Reason: FEVER Last Admin: 03/11/18 05:35 Dose: 650 mg Amino Acids (Prosource No Carb Liquid Pkt) 30 ml PO BID@0800,1730 [facility] Last Admin: 03/13/18 09:32 Dose: 30 ml Ascorbic Acid (Vitamin C -) 250 mg PO DAILY [facility] Last Admin: 03/13/18 09:32 Dose: 250 mg Calcitriol (Rocaltrol -) 0.25 mcg PO DAILY [facility] Last Admin: 03/13/18 09:31 Dose: 0.25 mcg Calcium Carbonate (Os-Severo 500mg -) 1,000 mg PO DAILY [facility] Last Admin: 03/13/18 09:31 Dose: 1,000 mg Collagenase (Santyl -) 1 applic TP DAILY [facility]; Protocol Last Admin: 03/12/18 17:54 Dose: 1 applic Ergocalciferol (Drisdol -) 50,000 unit PO Q7D@1000 [facility] Last Admin: 03/09/18 10:32 Dose: 50,000 unit Gabapentin (Neurontin -) 600 mg PO BID [facility] Last Admin: 03/13/18 09:31 Dose: 600 mg Dextrose/Sodium Chloride (D5-1/2ns -) 1,000 mls @ 83 mls/hr IV ASDIR [facility] Last Admin: 03/12/18 23:03 Dose: 83 mls/hr Vancomycin HCl (Vancomycin (Pre-Docked)) 1,000 mg in 250 mls @ 166.667 mls/hr IVPB Q24H [facility]; Protocol Last Admin: 03/12/18 15:29 Dose: 166.667 mls/hr Meropenem 500 mg/ Dextrose 100 mls @ 200 mls/hr IVPB Q8H-IV [facility] Last Admin: 03/13/18 09:31 Dose: 200 mls/hr Levothyroxine Sodium (Synthroid -) 88 mcg PO DAILY@0700 [facility] Last Admin: 03/13/18 06:39 Dose: 88 mcg Metoprolol Tartrate (Lopressor -) 12.5 mg PO DAILY [facility] Pantoprazole Sodium (Protonix -) 40 mg PO DAILY [facility] Last Admin: 03/13/18 09:32 Dose: 40 mg Potassium Chloride (K-Dur -) 20 meq PO ONCE ONE Stop: 03/13/18 11:55 Pramipexole Dihydrochloride (Mirapex -) 0.25 mg PO HS [facility] Last Admin: 03/12/18 21:47 Dose: 0.25 mg Tramadol HCl (Ultram -) 50 mg PO Q8H PRN PRN Reason: PAIN LEVEL 7 - 10 Last Admin: 03/13/18 11:45 Dose: 50 mg Valacyclovir HCl (Valtrex -) 500 mg PO DAILY@0600 [facility] Last Admin: 03/13/18 06:39 Dose: 500 mg Warfarin Sodium (Coumadin -) 2 mg PO DAILY@1800 [facility] Last Admin: 03/08/18 18:10 Dose: 2 mg Zinc Sulfate (Orazinc -) 220 mg PO DAILY [facility] Last Admin: 03/13/18 09:32 Dose: 220 mg - Objective Vital Signs: Vital Signs Temperature 98.3 F 03/13/18 09:42 Pulse Rate 70 03/13/18 09:42 Respiratory Rate 20 03/13/18 09:42 Blood Pressure 109/52 L 03/13/18 09:42 O2 Sat by Pulse Oximetry (%) 96 03/12/18 21:00 Constitutional: Yes: Calm Cardiovascular: Yes: Regular Rate and Rhythm, S1, S2 Respiratory: Yes: CTA Bilaterally Gastrointestinal: Yes: Normal Bowel Sounds, Soft Integumentary: Yes: Rash (whitish rash noted in sacrum and groin) Wound/Incision: Yes: Dressing Dry and Intact Neurological: Yes: Alert, Oriented Labs: CBC, BMP 03/13/18 06:23 03/13/18 06:23 INR, PTT INR 2.36 (0.83-1.09) H 03/13/18 06:23 Problem List - Problems (1) Wound of right lower extremity Assessment/Plan: seen by surgical team collagenase wound culture contact precautions wound culture meropenem and vancomycin Code(s): S81.801A - UNSPECIFIED OPEN WOUND, RIGHT LOWER LEG, INITIAL ENCOUNTER (2) Afib Assessment/Plan: will restart c oumadin today and daily INR Code(s): I48.91 - UNSPECIFIED ATRIAL FIBRILLATION (3) Supratherapeutic INR Assessment/Plan: now INR is therapeutic zi restart low dose cumadin Code(s): R79.1 - ABNORMAL COAGULATION PROFILE (4) Hypotension Assessment/Plan: I lactic acid 2.7 now normal and Cr 1.8 is now 1.0 s/p ivf Microbiology 03/06/18 12:00 Urine - Urine Clean Catch Urine Culture - Final NO GROWTH OBTAINED 03/06/18 11:35 Blood - Peripheral Venous Blood Culture - Preliminary NO GROWTH OBTAINED AFTER 24 HOURS, INCUBATION TO CONTINUE FOR 4 DAYS. 03/06/18 11:30 Blood - Peripheral Venous Blood Culture - Preliminary NO GROWTH OBTAINED AFTER 24 HOURS, INCUBATION TO CONTINUE FOR 4 DAYS. BP is now normal zi hold off metoprolol HR is controlled Microbiology 03/09/18 12:45 Ankle - Right Lateral Gram Stain - Final 03/06/18 12:00 Urine - Urine Clean Catch Urine Culture - Final NO GROWTH OBTAINED 03/09/18 12:45 Ankle - Right Lateral Wound Culture - Preliminary Pseudomonas Aeruginosa Proteus Species 03/06/18 11:35 Blood - Peripheral Venous Blood Culture - Preliminary NO GROWTH OBTAINED AFTER 72 HOURS, INCUBATION TO CONTINUE FOR 2 DAYS. 03/06/18 11:30 Blood - Peripheral Venous Blood Culture - Preliminary NO GROWTH OBTAINED AFTER 72 HOURS, INCUBATION TO CONTINUE FOR 2 DAYS. 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 (6) Deep vein thrombosis Assessment/Plan: on couamdin was held bc of supratherapeutic iNR- now inr is therapeutic will restat low dose Code(s): I82.409 - ACUTE EMBOLISM AND THOMBOS UNSP DEEP VN UNSP LOWER EXTREMITY (7) Hypothyroidism Assessment/Plan: tsh note 7 on synthroid- dose increased Code(s): E03.9 - HYPOTHYROIDISM, UNSPECIFIED (8) Electrolyte abnormality Assessment/Plan: repleted potassoium today check Mag in AM Code(s): E87.8 - OTH DISORDERS OF ELECTROLYTE AND FLUID BALANCE, NEC (9) Rash Assessment/Plan: mycolog Code(s): R21 - RASH AND OTHER NONSPECIFIC SKIN ERUPTION Assessment/Plan will recheck wbc again stop ivf start couamdin daily inr recheck lytes in am
--- NOTE | 2018-03-13 12:39 | PN ---
Progress Note (short form) - Note Progress Note: awake and alert no complaints left ankle pain has resolved Vital Signs Period Temp Pulse Resp BP Sys/Ferrer Pulse Ox Last 24 Hr 97.7 F-98.3 F 69-81 18-20 109-138/52-67 96 cor-rrr lungs clear abd soft,nt ext ulcer is clean, no odor or drainage LLE ankle/foot nontender, no swelling CBC, BMP 03/13/18 06:23 03/13/18 06:23 Microbiology 03/09/18 12:45 Ankle - Right Lateral Gram Stain - Final 03/09/18 12:45 Ankle - Right Lateral Wound Culture - Final Pseudomonas Aeruginosa Proteus Mirabilis 03/09/18 19:00 Blood - Peripheral Venous Blood Culture - Preliminary NO GROWTH OBTAINED AFTER 72 HOURS, INCUBATION TO CONTINUE FOR 2 DAYS. 03/09/18 18:40 Blood - Peripheral Venous Blood Culture - Preliminary NO GROWTH OBTAINED AFTER 72 HOURS, INCUBATION TO CONTINUE FOR 2 DAYS. 03/06/18 11:30 Blood - Peripheral Venous Blood Culture - Final NO GROWTH AFTER 5 DAYS INCUBATION 03/06/18 11:35 Blood - Peripheral Venous Blood Culture - Final NO GROWTH AFTER 5 DAYS INCUBATION 03/06/18 12:00 Urine - Urine Clean Catch Urine Culture - Final NO GROWTH OBTAINED a/p fevers resolved chronic RLE ulcer- clean willl d/c antibiotics history of myeloma please call back if needed
[2018-03-13 12:51] VITALS: BMI 24.3
[2018-03-13] MEDS: COLLAGENASE CLOSTRIDIUM HIST. 30 GRAMS TUBE TP SCH (12:53)
--- NOTE | 2018-03-13 15:59 | PN ---
Progress Note, Physician History of Present Illness: Pt seen and examined at bedside. She is awake and alert. She denies shortness of breath. - Current Medication List Current Medications: Active Medications Acetaminophen (Tylenol -) 650 mg PO Q6H PRN PRN Reason: FEVER Last Admin: 03/11/18 05:35 Dose: 650 mg Amino Acids (Prosource No Carb Liquid Pkt) 30 ml PO BID@0800,1730 [facility] Last Admin: 03/13/18 09:32 Dose: 30 ml Ascorbic Acid (Vitamin C -) 250 mg PO DAILY [facility] Last Admin: 03/13/18 09:32 Dose: 250 mg Calcitriol (Rocaltrol -) 0.25 mcg PO DAILY [facility] Last Admin: 03/13/18 09:31 Dose: 0.25 mcg Calcium Carbonate (Os-Severo 500mg -) 1,000 mg PO DAILY [facility] Last Admin: 03/13/18 09:31 Dose: 1,000 mg Collagenase (Santyl -) 1 applic TP DAILY [facility]; Protocol Last Admin: 03/13/18 12:53 Dose: 1 applic Ergocalciferol (Drisdol -) 50,000 unit PO Q7D@1000 [facility] Last Admin: 03/09/18 10:32 Dose: 50,000 unit Gabapentin (Neurontin -) 600 mg PO BID [facility] Last Admin: 03/13/18 09:31 Dose: 600 mg Levothyroxine Sodium (Synthroid -) 88 mcg PO DAILY@0700 [facility] Last Admin: 03/13/18 06:39 Dose: 88 mcg Metoprolol Tartrate (Lopressor -) 12.5 mg PO DAILY [facility] Nystatin/Triamcinolone Acetonide (Mycolog Ii Cream -) 1 applic TP BID [facility] Pantoprazole Sodium (Protonix -) 40 mg PO DAILY [facility] Last Admin: 03/13/18 09:32 Dose: 40 mg Pramipexole Dihydrochloride (Mirapex -) 0.25 mg PO HS [facility] Last Admin: 03/12/18 21:47 Dose: 0.25 mg Tramadol HCl (Ultram -) 50 mg PO Q8H PRN PRN Reason: PAIN LEVEL 7 - 10 Last Admin: 03/13/18 11:45 Dose: 50 mg Valacyclovir HCl (Valtrex -) 500 mg PO DAILY@0600 [facility] Last Admin: 11/19/18 06:39 Dose: 500 mg Warfarin Sodium (Coumadin -) 2 mg PO DAILY@1800 [facility] Zinc Sulfate (Orazinc -) 220 mg PO DAILY [facility] Last Admin: 03/13/18 09:32 Dose: 220 mg - Objective Vital Signs: Vital Signs Temperature 97.3 F L 03/13/18 14:28 Pulse Rate 66 03/13/18 14:28 Respiratory Rate 18 03/13/18 14:28 Blood Pressure 118/58 L 03/13/18 14:28 O2 Sat by Pulse Oximetry (%) 96 03/13/18 09:00 Constitutional: Yes: Calm Cardiovascular: Yes: S1, S2 Respiratory: Yes: CTA Bilaterally Gastrointestinal: Yes: Soft Genitourinary: Yes: WNL Musculoskeletal: Yes: WNL Edema: No Neurological: Yes: Oriented Psychiatric: Yes: Oriented Labs: CBC, BMP 03/13/18 06:23 03/13/18 06:23 INR, PTT INR 2.36 (0.83-1.09) H 03/13/18 06:23 Problem List - Problems (1) Hypocalcemia Code(s): E83.51 - HYPOCALCEMIA (2) Hypokalemia Code(s): E87.6 - HYPOKALEMIA Assessment/Plan Current Medications Generic Name Dose Route Start Last Admin Trade Name Freq PRN Reason Stop Dose Admin Acetaminophen 650 mg 03/06/18 16:01 03/11/18 05:35 Tylenol - PO 650 mg Q6H PRN Administration FEVER Amino Acids 30 ml 03/08/18 17:30 03/13/18 09:32 Prosource No Carb Liquid Pkt PO 30 ml BID@0800,1730 [facility] Administration Ascorbic Acid 250 mg 03/09/18 10:00 03/13/18 09:32 Vitamin C - PO 250 mg DAILY [facility] Administration Calcitriol 0.25 mcg 03/09/18 10:00 03/13/18 09:31 Rocaltrol - PO 0.25 mcg DAILY [facility] Administration Calcium Carbonate 1,000 mg 03/09/18 10:00 03/13/18 09:31 Os-Severo 500mg - PO 1,000 mg DAILY [facility] Administration Collagenase 1 applic 03/09/18 14:00 03/13/18 12:53 Santyl - TP 1 applic DAILY [facility] Administration Protocol Ergocalciferol 50,000 unit 03/09/18 10:00 03/09/18 10:32 Drisdol - PO 50,000 unit Q7D@1000 [facility] Administration Gabapentin 600 mg 03/06/18 22:00 03/13/18 09:31 Neurontin - PO 600 mg BID [facility] Administration Levothyroxine Sodium 88 mcg 03/09/18 07:00 03/13/18 06:39 Synthroid - PO 88 mcg DAILY@0700 [facility] Administration Metoprolol Tartrate 12.5 mg 03/14/18 10:00 Lopressor - PO DAILY [facility] Nystatin/Triamcinolone Acetonide 1 applic 03/13/18 22:00 Mycolog Ii Cream - TP BID [facility] Pantoprazole Sodium 40 mg 03/07/18 10:00 03/13/18 09:32 Protonix - PO 40 mg DAILY [facility] Administration Pramipexole Dihydrochloride 0.25 mg 03/06/18 22:00 03/12/18 21:47 Mirapex - PO 0.25 mg HS [facility] Administration Tramadol HCl 50 mg 03/06/18 16:01 03/13/18 11:45 Ultram - PO 50 mg Q8H PRN Administration PAIN LEVEL 7 - 10 Valacyclovir HCl 500 mg 03/10/18 06:00 03/13/18 06:39 Valtrex - PO 500 mg DAILY@0600 [facility] Administration Warfarin Sodium 2 mg 03/13/18 18:00 Coumadin - PO DAILY@1800 [facility] Zinc Sulfate 220 mg 03/09/18 10:00 03/13/18 09:32 Orazinc - PO 220 mg DAILY [facility] Administration Laboratory Tests 03/10/18 06:30 PTH Intact 70 H Impression 1. hypocalcemia 2. hypokalemia 3. multiple myeloma 4. hypothyroidism 5. htn Plan - cont supplements - will also give a dose of potassium - PTH is elevated - cont wound care to leg
[2018-03-13] MEDS ORDERED: POTASSIUM CHLORIDE ORAL LIQUID 20 MEQ/15 ML PO ONE (16:01)
[2018-03-13] MEDS ORDERED: WARFARIN NA 2 MG TABLET (UD) PO SCH (18:00)
[2018-03-13] MEDS: WARFARIN NA 2 MG TABLET (UD) PO SCH (19:59)
[2018-03-13] MEDS: NYSTATIN/TRIAMCINOLONE TOPICAL CREAM 15 GM TUBE TP SCH (21:30)
[2018-03-13] MEDS: PRAMIPEXOLE DIHYDROCHLORIDE 0.25 MG TABLET PO SCH (21:31)
[2018-03-13] MEDS ORDERED: METOPROLOL TARTRATE 25 MG TABLET (FP) PO SCH (22:00)
[2018-03-14] MEDS: valACYclovir HCL 500 MG TABLET (FP) PO SCH (06:29)
[2018-03-14] MEDS: LEVOTHYROXINE NA 88 MCG TABLET (FP) PO SCH (06:29)
[2018-03-14] MEDS: traMADol HCL 50 MG TABLET PO PRN (06:29)
[2018-03-14 07:16] LABS: BASO % 2.5 % (0-2.0); HEMOGLOBIN 9.2 GM/dL (10.7-15.3); LYMPH % 16.6 % (8-40); MCH 29.7 pg (25.7-33.7); MCHC 31.7 g/dl (32.0-36.0); MEAN CELL VOLUME 93.6 fl (80-96); MEAN PLT VOLUME 7.9 fl (7.5-11.1); MONO % 17.8 % (3.8-10.2); NEUT % 61.1 % (42.8-82.8); PLATELET COUNT 258 K/MM3 (134-434); RDW 19.5 % (11.6-15.6); WHITE BLOOD COUNT 3.1 K/mm3 (4.0-10.0)
[2018-03-14 07:34] LABS: INR 1.61 (0.83-1.09); PROTHROMBIN TIME (PATIENT) 19.1 SEC (9.7-13.0)
[2018-03-14 07:43] LABS: ALBUMIN 1.5 g/dl (3.4-5.0); ALK PHOS 67 U/L (45-117); ANION GAP 7 MMOL/L (8-16); BILIRUBIN,TOTAL 0.4 mg/dL (0.2-1); BLOOD UREA NITROGEN 12 mg/dL (7-18); CHLORIDE 104 mmol/L (98-107); CO2 31 mmol/L (21-32); CREATININE 0.6 mg/dL (0.55-1.3); GLUCOSE,RANDOM 62 mg/dL (74-106); POTASSIUM 3.8 mmol/L (3.5-5.1); SGOT/AST 38 U/L (15-37); SGPT/ALT 41 U/L (13-61); SODIUM 141 mmol/L (136-145); TOT PROT 4.7 g/dl (6.4-8.2)
[2018-03-14] MEDS: CALCITRIOL 0.25 MCG CAPSULE (FP) PO SCH (09:11)
[2018-03-14] MEDS: CALCIUM (OYSTER SHELL) 500 MG TABLET (FP) PO SCH (09:11)
[2018-03-14] MEDS: AMINO ACIDS/PROTEIN HYDROLYS 30 ML LIQUID.PKT PO SCH ×2 (09:11→17:43)
[2018-03-14] MEDS: METOPROLOL TARTRATE 25 MG TABLET (FP) PO SCH (09:12)
[2018-03-14] MEDS: GABAPENTIN 300 MG CAPSULE (FP) PO SCH ×2 (09:12→21:10)
[2018-03-14] MEDS: NYSTATIN/TRIAMCINOLONE TOPICAL CREAM 15 GM TUBE TP SCH ×2 (09:12→21:10)
[2018-03-14] MEDS: PANTOPRAZOLE 40 MG TABLET (FP) PO SCH (09:13)
[2018-03-14] MEDS: ZINC SULFATE 220 MG CAPSULE (FP) PO SCH (09:13)
[2018-03-14] MEDS: ASCORBIC ACID 250 MG TABLET (FP) PO SCH (10:05)
--- NOTE | 2018-03-14 13:27 | PN ---
Progress Note, Physician History of Present Illness: Pt seen and examined at bedside. She is awake and alert. She denies shortness of breath or palpitations. - Current Medication List Current Medications: Active Medications Acetaminophen (Tylenol -) 650 mg PO Q6H PRN PRN Reason: FEVER Last Admin: 03/11/18 05:35 Dose: 650 mg Amino Acids (Prosource No Carb Liquid Pkt) 30 ml PO BID@0800,1730 [facility] Last Admin: 03/14/18 09:11 Dose: 30 ml Ascorbic Acid (Vitamin C -) [address] [facility] Last Admin: 03/14/18 10:05 Dose: 250 mg Calcitriol (Rocaltrol -) 0.[address] [facility] Last Admin: 03/14/18 09:11 Dose: 0.25 mcg Calcium Carbonate (Os-Severo 500mg -) 1,[address] [facility] Last Admin: 03/14/18 09:11 Dose: 1,000 mg Collagenase (Santyl -) [address] [facility]; Protocol Last Admin: 03/13/18 12:53 Dose: 1 applic Ergocalciferol (Drisdol -) 50,000 unit PO Q7D@1000 [facility] Last Admin: 03/09/18 10:32 Dose: 50,000 unit Gabapentin (Neurontin -) [address] [facility] Last Admin: 03/14/18 09:12 Dose: 600 mg Levothyroxine Sodium (Synthroid -) 88 mcg PO DAILY@0700 [facility] Last Admin: 03/14/18 06:29 Dose: 88 mcg Metoprolol Tartrate (Lopressor -) 12.[address] [facility] Last Admin: 03/14/18 09:12 Dose: Not Given Nystatin/Triamcinolone Acetonide (Mycolog Ii Cream -) [address] [facility] Last Admin: 03/14/18 09:12 Dose: 1 applic Pantoprazole Sodium (Protonix -) [address] [facility] Last Admin: 03/14/18 09:13 Dose: 40 mg Pramipexole Dihydrochloride (Mirapex -) 0.[address] [facility] Last Admin: 03/13/18 21:31 Dose: 0.25 mg Tramadol HCl (Ultram -) 50 mg PO Q8H PRN PRN Reason: PAIN LEVEL 7 - 10 Last Admin: 03/14/18 06:29 Dose: 50 mg Valacyclovir HCl (Valtrex -) 500 mg PO DAILY@0600 [facility] Last Admin: 03/14/18 06:29 Dose: 500 mg Warfarin Sodium (Coumadin -) 2 mg PO DAILY@1800 [facility] Last Admin: 03/13/18 17:54 Dose: 2 mg Warfarin Sodium (Coumadin -) 3 mg PO ONCE@1800 [facility] Stop: 03/14/18 18:01 Zinc Sulfate (Orazinc -) [address] [facility] Last Admin: 03/14/18 09:13 Dose: 220 mg - Objective Vital Signs: Vital Signs Temperature 99.2 F 03/14/18 09:00 Pulse Rate 74 03/14/18 09:00 Respiratory Rate 20 03/14/18 09:00 Blood Pressure 115/50 L 03/14/18 09:00 O2 Sat by Pulse Oximetry (%) 96 03/14/18 09:00 Constitutional: Yes: Calm Eyes: Yes: Conjunctiva Clear HENT: Yes: Atraumatic Neck: Yes: Supple Cardiovascular: Yes: S1, S2 Respiratory: Yes: CTA Bilaterally Gastrointestinal: Yes: Soft Genitourinary: Yes: WNL Edema: No Neurological: Yes: Oriented Psychiatric: Yes: Oriented Labs: CBC, BMP 03/14/18 06:00 03/14/18 06:00 INR, PTT INR 1.61 (0.83-1.09) H 03/14/18 06:00 Problem List - Problems (1) Hypocalcemia Code(s): E83.51 - HYPOCALCEMIA (2) Hypokalemia Code(s): E87.6 - HYPOKALEMIA Assessment/Plan Current Medications Generic Name Dose Route Start Last Admin Trade Name Freq PRN Reason Stop Dose Admin Acetaminophen 650 mg 03/06/18 16:01 03/11/18 05:35 Tylenol - PO 650 mg Q6H PRN Administration FEVER Amino Acids 30 ml 03/08/18 17:30 03/14/18 09:11 Prosource No Carb Liquid Pkt PO 30 ml BID@0800,1730 [facility] Administration Ascorbic Acid 250 mg 03/09/18 10:00 03/14/18 10:05 Vitamin C - PO 250 mg DAILY [facility] Administration Calcitriol 0.25 mcg 03/09/18 10:00 03/14/18 09:11 Rocaltrol - PO 0.25 mcg DAILY [facility] Administration Calcium Carbonate 1,000 mg 03/09/18 10:00 03/14/18 09:11 Os-Severo 500mg - PO 1,000 mg DAILY [facility] Administration Collagenase 1 applic 03/09/18 14:00 03/13/18 12:53 Santyl - TP 1 applic DAILY [facility] Administration Protocol Ergocalciferol 50,000 unit 03/09/18 10:00 03/09/18 10:32 Drisdol - PO 50,000 unit Q7D@1000 [facility] Administration Gabapentin 600 mg 03/06/18 22:00 03/14/18 09:12 Neurontin - PO 600 mg BID [facility] Administration Levothyroxine Sodium 88 mcg 03/09/18 07:00 03/14/18 06:29 Synthroid - PO 88 mcg DAILY@0700 [facility] Administration Metoprolol Tartrate 12.5 mg 03/14/18 10:00 03/14/18 09:12 Lopressor - PO Not Given DAILY [facility] Nystatin/Triamcinolone Acetonide 1 applic 03/13/18 22:00 03/14/18 09:12 Mycolog Ii Cream - TP 1 applic BID [facility] Administration Pantoprazole Sodium 40 mg 03/07/18 10:00 03/14/18 09:13 Protonix - PO 40 mg DAILY [facility] Administration Pramipexole Dihydrochloride 0.25 mg 03/06/18 22:00 03/13/18 21:31 Mirapex - PO 0.25 mg HS [facility] Administration Tramadol HCl 50 mg 03/06/18 16:01 03/14/18 06:29 Ultram - PO 50 mg Q8H PRN Administration PAIN LEVEL 7 - 10 Valacyclovir HCl 500 mg 03/10/18 06:00 03/14/18 06:29 Valtrex - PO 500 mg DAILY@0600 [facility] Administration Warfarin Sodium 2 mg 03/13/18 18:00 03/13/18 17:54 Coumadin - PO 2 mg DAILY@1800 [facility] Administration Warfarin Sodium 3 mg 03/14/18 18:00 Coumadin - PO 03/14/18 18:01 ONCE@1800 [facility] Sulfate 220 mg 03/09/18 10:00 03/14/18 09:13 Orazinc - PO 220 mg DAILY [facility] Administration Laboratory Tests 03/14/18 06:00 Calcium 8.0 L Albumin 1.5 L Impression 1. hypocalcemia 2. hypokalemia 3. multiple myeloma 4. hypothyroidism 5. htn Plan - corrected calcium is greater than 10 - hold calcitriol - change calcium to one tab - cont to monitor calcium levels - cont wound care to leg
--- NOTE | 2018-03-14 13:38 | DS ---
Physical Examination Vital Signs: Vital Signs Temperature 99.2 F 03/14/18 09:00 Pulse Rate 74 03/14/18 09:00 Respiratory Rate 20 03/14/18 09:00 Blood Pressure 115/50 L 03/14/18 09:00 O2 Sat by Pulse Oximetry (%) 96 03/14/18 09:00 Constitutional: Yes: Calm Cardiovascular: Yes: Regular Rate and Rhythm, S1, S2 Respiratory: Yes: CTA Bilaterally Gastrointestinal: Yes: Normal Bowel Sounds, Soft Extremities: Yes: Other Neurological: Yes: Alert, Oriented Labs: CBC, BMP 03/14/18 06:00 03/14/18 06:00 Discharge Summary Reason For Visit: WOUND OF RIGHT LOWER EXTREMITY Current Active Problems Electrolyte abnormality (Acute) Hypercoagulable state (Acute) Hypocalcemia (Acute) Hypotension (Acute) Hypothyroidism associated with surgical procedure (Acute) Rash (Acute) Supratherapeutic INR (Acute) Wound of right lower extremity (Acute) Hospital Course: - Primary Care Physician PCP: Alejandro Grimm - Admission Chief Complaint: came in for weakness History of Present Illness: 87 yo F with h/o htn hld, chronic wound right leg, followed by dr. grey, here with c/o feeling lightheaded on way to have wound check, dressing change. was found to be hypotensive by EMS. in 70's systolic. was given 500 ML ns bolus. feels improved. no cp no sob. denies cough. no abd pain. currently lives at [facility]. . As per the patient, she was going to eat breakfast and all of a sudden started feeling weak, had dizziness and nearly passed out. Then she sat and had a cup of coffee and EMS was called. On assessment by EMS, her BP was in 70's which improved to 105/60 mmHg. In the ED, patient's blood sugar was 36 mg/dl, was given some juice and her sugar improved to 75 mg/dl. In the ED , she was resuscitated with IV fluids 2.5 L with improvement in her BP but her BP is labile and becomes hypotensive without IV fluid bolus. patient was evaluated by ICU now after fluid resuscitation BP much improved and down graded to med surg supratherapeutic INR got vitamin K got vanco and zosyn and ivf in hospital coumadin was held bc of [facility] INR now restarted on iv abx for fever now resolved chronic RLE ulcer clean epiosde of hypotensiion so lopresor has now been decreased Condition: Stable - Instructions Referrals: Alejandro Grimm MD [Primary Care Provider] - - Home Medications Comprehensive Discharge Medication List: Ambulatory Orders Albuterol Sulfate [Proair Hfa] 8.5 gm IH Q6H PRN 08/13/17 Ammonium Lactate Cream [Lac-Hydrin 12% Cream -] 1 applic TP DAILY 08/13/17 Atorvastatin Ca [Lipitor] 40 mg PO HS 08/13/17 Dexamethasone 20 mg PO WEEKLY 08/13/17 Docusate Sodium [Colace] 100 mg PO HS 08/13/17 Fluticasone Prop 0.05% Nasal [Flonase -] 2 spray NS DAILY 08/13/17 Gabapentin 600 mg PO DAILY 08/13/17 Lenalidomide [Revlimid] 10 mg PO DAILY 08/13/17 Levothyroxine [Synthroid -] 75 mcg PO DAILY 08/13/17 Metoprolol Succinate 12.5 mg PO DAILY 08/13/17 Pantoprazole Sodium 40 mg PO DAILY 08/13/17 Pramipexole Di-HCl [Mirapex] 0.25 mg PO HS 08/13/17 Sennosides [Senna Lax] 8.6 mg PO HS 08/13/17 Valacyclovir HCl [Valtrex] 500 mg PO DAILY 08/13/17 Warfarin Sodium [Coumadin] 5 mg PO ASDIR 08/13/17 Magnesium 400 mg PO DAILY 11/20/17 Warfarin Na [Coumadin Protocol] 4 mg PO ASDIR 11/20/17 Multivitamins [Multivit ([facility] Formulary)] 1 tab PO DAILY tab 01/04/18 Zinc Sulfate [Orazinc -] 220 mg PO DAILY 30 Days capsule 01/04/18 traMADol HCL [Ultram -] 50 mg PO Q8H PRN tablet MDD 3 01/04/18 Warfarin Na [Coumadin -] 1 mg PO ASDIR 03/06/18
[2018-03-14] MEDS: COLLAGENASE CLOSTRIDIUM HIST. 30 GRAMS TUBE TP SCH (14:00)
--- NOTE | 2018-03-14 14:25 | PN ---
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
[2018-03-14] MEDS ORDERED: WARFARIN NA 3 MG TABLET PO ONE (18:00)
[2018-03-14] MEDS ORDERED: PT OWN MED DRAWER 7, Y5N ONE ×2 (20:46→21:25)
[2018-03-14] MEDS: PRAMIPEXOLE DIHYDROCHLORIDE 0.25 MG TABLET PO SCH (21:10)
[2018-03-14] MEDS: ACETAMINOPHEN 325 MG TABLET (FP) PO PRN (21:12)
[2018-03-15] MEDS ORDERED: PT OWN MED DRAWER 7, Y5N ONE ×2 (04:42→10:36)
[2018-03-15] MEDS: valACYclovir HCL 500 MG TABLET (FP) PO SCH (05:56)
[2018-03-15] MEDS: LEVOTHYROXINE NA 88 MCG TABLET (FP) PO SCH (06:01)
[2018-03-15 07:13] LABS: INR 1.44 (0.83-1.09); PROTHROMBIN TIME (PATIENT) 17.1 SEC (9.7-13.0)
[2018-03-15 08:02] LABS: ALBUMIN 1.6 g/dl (3.4-5.0); ALK PHOS 66 U/L (45-117); ANION GAP 8 MMOL/L (8-16); BILIRUBIN,TOTAL 0.3 mg/dL (0.2-1); BLOOD UREA NITROGEN 15 mg/dL (7-18); CALCIUM 8.3 mg/dL (8.5-10.1); CHLORIDE 103 mmol/L (98-107); CO2 32 mmol/L (21-32); CREATININE 0.6 mg/dL (0.55-1.3); GLUCOSE,RANDOM 69 mg/dL (74-106); POTASSIUM 4.5 mmol/L (3.5-5.1); SGOT/AST 31 U/L (15-37); SGPT/ALT 37 U/L (13-61); SODIUM 142 mmol/L (136-145); TOT PROT 4.9 g/dl (6.4-8.2)
[2018-03-15 08:09] LABS: SERUM IRON SATURATION 17 % (15-55); TOTAL IRON BINDING CAPACITY 117 ug/dL (250-450); UIBC 97 ug/dL (118-369)
[2018-03-15] MEDS ORDERED: ENOXAPARIN NA (PORCINE) 80 MG/0.8 ML DISP.SYRIN SQ SCH (10:00)
--- NOTE | 2018-03-15 10:33 | DS ---
Physical Examination Vital Signs: Vital Signs Temperature 98.6 F 03/15/18 06:00 Pulse Rate 77 03/15/18 06:00 Respiratory Rate 18 03/15/18 06:00 Blood Pressure 108/64 03/15/18 06:00 O2 Sat by Pulse Oximetry (%) 95 03/14/18 21:00 Cardiovascular: Yes: S1, S2 Respiratory: Yes: Regular, CTA Bilaterally Gastrointestinal: Yes: Normal Bowel Sounds, Soft Labs: CBC, BMP 03/14/18 06:00 03/15/18 06:00 Discharge Summary Reason For Visit: WOUND OF RIGHT LOWER EXTREMITY Current Active Problems Electrolyte abnormality (Acute) Hypercoagulable state (Acute) Hypocalcemia (Acute) Hypotension (Acute) Hypothyroidism associated with surgical procedure (Acute) Rash (Acute) Supratherapeutic INR (Acute) Wound of right lower extremity (Acute) Hospital Course: 87 yo F with h/o htn hld, chronic wound right leg, followed by dr. grey, here with c/o feeling lightheaded on way to have wound check, dressing change. was found to be hypotensive by EMS. in 70's systolic. was given 500 ML ns bolus. feels improved. no cp no sob. denies cough. no abd pain. currently lives at [facility]. . As per the patient, she was going to eat breakfast and all of a sudden started feeling weak, had dizziness and nearly passed out. Then she sat and had a cup of coffee and EMS was called. On assessment by EMS, her BP was in 70's which improved to 105/60 mmHg. In the ED, patient's blood sugar was 36 mg/dl, was given some juice and her sugar improved to 75 mg/dl. In the ED , she was resuscitated with IV fluids 2.5 L with improvement in her BP but her BP is labile and becomes hypotensive without IV fluid bolus. patient was evaluated by ICU now after fluid resuscitation BP much improved and down graded to med surg supratherapeutic INR got vitamin K got vanco and zosyn and ivf in hospital coumadin was held bc of [facility] INR now restarted--add lovenox till therapeutic on iv abx for fever now resolved chronic RLE ulcer clean epiosde of hypotensiion so lopresor has now been decreased - Problems (1) Wound of right lower extremity Assessment/Plan: seen by surgical team collagenase wound culture contact precautions wound culture Code(s): S81.801A - UNSPECIFIED OPEN WOUND, RIGHT LOWER LEG, INITIAL ENCOUNTER (2) Afib Assessment/Plan: will restart c oumadin today and daily INR lovenox Code(s): I48.91 - UNSPECIFIED ATRIAL FIBRILLATION (3) Supratherapeutic INR Assessment/Plan: now INR is therapeutic zi restart low dose cumadin Code(s): R79.1 - ABNORMAL COAGULATION PROFILE (4) Hypotension Assessment/Plan: I lactic acid 2.7 now normal and Cr 1.8 is now 1.0 s/p ivf Microbiology 03/06/18 12:00 Urine - Urine Clean Catch Urine Culture - Final NO GROWTH OBTAINED 03/06/18 11:35 Blood - Peripheral Venous Blood Culture - Preliminary NO GROWTH OBTAINED AFTER 24 HOURS, INCUBATION TO CONTINUE FOR 4 DAYS. 03/06/18 11:30 Blood - Peripheral Venous Blood Culture - Preliminary NO GROWTH OBTAINED AFTER 24 HOURS, INCUBATION TO CONTINUE FOR 4 DAYS. BP is now normal zi hold off metoprolol HR is controlled Microbiology 03/09/18 12:45 Ankle - Right Lateral Gram Stain - Final 03/06/18 12:00 Urine - Urine Clean Catch Urine Culture - Final NO GROWTH OBTAINED 03/09/18 12:45 Ankle - Right Lateral Wound Culture - Preliminary Pseudomonas Aeruginosa Proteus Species 03/06/18 11:35 Blood - Peripheral Venous Blood Culture - Preliminary NO GROWTH OBTAINED AFTER 72 HOURS, INCUBATION TO CONTINUE FOR 2 DAYS. 03/06/18 11:30 Blood - Peripheral Venous Blood Culture - Preliminary NO GROWTH OBTAINED AFTER 72 HOURS, INCUBATION TO CONTINUE FOR 2 DAYS. 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 (6) Deep vein thrombosis Assessment/Plan: on couamdin was held bc of supratherapeutic iNR- now inr is therapeutic will restat low dose Code(s): I82.409 - ACUTE EMBOLISM AND THOMBOS UNSP DEEP VN UNSP LOWER EXTREMITY (7) Hypothyroidism Assessment/Plan: tsh note 7 on synthroid- dose increased Code(s): E03.9 - HYPOTHYROIDISM, UNSPECIFIED (8) Electrolyte abnormality Assessment/Plan: repleted potassoium today check Mag in AM Code(s): E87.8 - OTH DISORDERS OF ELECTROLYTE AND FLUID BALANCE, NEC (9) Rash Assessment/Plan: mycolog Code(s): R21 - RASH AND OTHER NONSPECIFIC SKIN ERUPTION Condition: Stable - Instructions Referrals: Alejandro Grimm MD [Primary Care Provider] - - Home Medications Comprehensive Discharge Medication List: Ambulatory Orders Albuterol Sulfate [Proair Hfa] 8.5 gm IH Q6H PRN 08/13/17 Ammonium Lactate Cream [Lac-Hydrin 12% Cream -] 1 applic TP DAILY 08/13/17 Atorvastatin Ca [Lipitor] 40 mg PO HS 08/13/17 Docusate Sodium [Colace] 100 mg PO HS 08/13/17 Fluticasone Prop 0.05% Nasal [Flonase -] 2 spray NS DAILY 08/13/17 Gabapentin 600 mg PO DAILY 08/13/17 Metoprolol Succinate 12.5 mg PO DAILY 08/13/17 Pantoprazole Sodium 40 mg PO DAILY 08/13/17 Pramipexole Di-HCl [Mirapex] 0.25 mg PO HS 08/13/17 Sennosides [Senna Lax] 8.6 mg PO HS 08/13/17 Valacyclovir HCl [Valtrex] 500 mg PO DAILY 08/13/17 Magnesium 400 mg PO DAILY 11/20/17 Multivitamins [Multivit ([facility] Formulary)] 1 tab PO DAILY tab 01/04/18 Zinc Sulfate [Orazinc -] 220 mg PO DAILY 30 Days capsule 01/04/18 traMADol HCL [Ultram -] 50 mg PO Q8H PRN tablet MDD 3 01/04/18 Levothyroxine [Synthroid -] 88 mcg PO DAILY@0700 #20 tablet MDD 1 03/14/18
[2018-03-15] MEDS: GABAPENTIN 300 MG CAPSULE (FP) PO SCH (10:37)
[2018-03-15] MEDS: PANTOPRAZOLE 40 MG TABLET (FP) PO SCH (10:37)
[2018-03-15] MEDS: AMINO ACIDS/PROTEIN HYDROLYS 30 ML LIQUID.PKT PO SCH (10:37)
[2018-03-15] MEDS: METOPROLOL TARTRATE 25 MG TABLET (FP) PO SCH ×2 (10:37→10:40)
[2018-03-15] MEDS: CALCIUM (OYSTER SHELL) 500 MG TABLET (FP) PO SCH (10:38)
[2018-03-15] MEDS: ZINC SULFATE 220 MG CAPSULE (FP) PO SCH (10:38)
[2018-03-15] MEDS: ASCORBIC ACID 250 MG TABLET (FP) PO SCH (10:38)
[2018-03-15] MEDS: NYSTATIN/TRIAMCINOLONE TOPICAL CREAM 15 GM TUBE TP SCH (11:28)
[2018-03-15] MEDS: COLLAGENASE CLOSTRIDIUM HIST. 30 GRAMS TUBE TP SCH (11:28)
--- NOTE | 2018-03-15 12:07 | PN ---
Progress Note, Physician History of Present Illness: Pt seen and examined at bedside. She is awake and alert. She denies shortness of breath. - Current Medication List Current Medications: Active Medications Acetaminophen (Tylenol -) 650 mg PO Q6H PRN PRN Reason: FEVER Last Admin: 03/14/18 21:12 Dose: 650 mg Amino Acids (Prosource No Carb Liquid Pkt) 30 ml PO BID@0800,1730 [facility] Last Admin: 03/15/18 10:37 Dose: 30 ml Ascorbic Acid (Vitamin C -) 250 mg PO DAILY [facility] Last Admin: 03/15/18 10:38 Dose: 250 mg Calcium Carbonate (Os-Severo 500mg -) 1,000 mg PO DAILY [facility] Last Admin: 03/15/18 10:38 Dose: 1,000 mg Collagenase (Santyl -) 1 applic TP DAILY [facility]; Protocol Last Admin: 03/15/18 11:28 Dose: 1 applic Enoxaparin Sodium (Lovenox -) 70 mg SQ BID [facility] Last Admin: 03/15/18 10:38 Dose: 70 mg Ergocalciferol (Drisdol -) 50,000 unit PO Q7D@1000 [facility] Last Admin: 03/09/18 10:32 Dose: 50,000 unit Gabapentin (Neurontin -) 600 mg PO BID [facility] Last Admin: 03/15/18 10:37 Dose: 600 mg Levothyroxine Sodium (Synthroid -) 88 mcg PO DAILY@0700 [facility] Last Admin: 03/15/18 06:01 Dose: 88 mcg Metoprolol Tartrate (Lopressor -) 12.5 mg PO DAILY [facility] Last Admin: 03/15/18 10:40 Dose: Not Given Nystatin/Triamcinolone Acetonide (Mycolog Ii Cream -) 1 applic TP BID [facility] Last Admin: 03/15/18 11:28 Dose: 1 applic Pantoprazole Sodium (Protonix -) 40 mg PO DAILY [facility] Last Admin: 03/15/18 10:37 Dose: 40 mg Pramipexole Dihydrochloride (Mirapex -) 0.25 mg PO HS [facility] Last Admin: 03/14/18 21:10 Dose: 0.25 mg Tramadol HCl (Ultram -) 50 mg PO Q8H PRN PRN Reason: PAIN LEVEL 7 - 10 Last Admin: 03/14/18 06:29 Dose: 50 mg Valacyclovir HCl (Valtrex -) 500 mg PO DAILY@0600 [facility] Last Admin: 03/15/18 05:56 Dose: 500 mg Warfarin Sodium (Coumadin -) 3 mg PO DAILY@1800 [facility] Zinc Sulfate (Orazinc -) 220 mg PO DAILY [facility] Last Admin: 03/15/18 10:38 Dose: 220 mg - Objective Vital Signs: Vital Signs Temperature 98.6 F 03/15/18 06:00 Pulse Rate 68 03/15/18 10:30 Respiratory Rate 18 03/15/18 10:30 Blood Pressure 102/54 L 03/15/18 10:30 O2 Sat by Pulse Oximetry (%) 95 03/14/18 21:00 Constitutional: Yes: Calm Eyes: Yes: Conjunctiva Clear HENT: Yes: Atraumatic Neck: Yes: Supple Cardiovascular: Yes: S1, S2 Respiratory: Yes: CTA Bilaterally Gastrointestinal: Yes: Soft Genitourinary: Yes: WNL Edema: No Neurological: Yes: Oriented Psychiatric: Yes: Oriented Labs: CBC, BMP 03/14/18 06:00 03/15/18 06:00 INR, PTT INR 1.44 (0.83-1.09) H 03/15/18 06:00 Problem List - Problems (1) Hypocalcemia Code(s): E83.51 - HYPOCALCEMIA (2) Hypokalemia Code(s): E87.6 - HYPOKALEMIA Assessment/Plan Current Medications Generic Name Dose Route Start Last Admin Trade Name Freq PRN Reason Stop Dose Admin Acetaminophen 650 mg 03/06/18 16:01 03/14/18 21:12 Tylenol - PO 650 mg Q6H PRN Administration FEVER Amino Acids 30 ml 03/08/18 17:30 03/15/18 10:37 Prosource No Carb Liquid Pkt PO 30 ml BID@0800,1730 [facility] Administration Ascorbic Acid 250 mg 03/09/18 10:00 03/15/18 10:38 Vitamin C - PO 250 mg DAILY [facility] Administration Calcium Carbonate 1,000 mg 03/09/18 10:00 03/15/18 10:38 Os-Severo 500mg - PO 1,000 mg DAILY [facility] Administration Collagenase 1 applic 03/09/18 14:00 03/15/18 11:28 Santyl - TP 1 applic DAILY [facility] Administration Protocol Enoxaparin Sodium 70 mg 03/15/18 10:00 11/21/18 10:38 Lovenox - SQ 70 mg BID [facility] Administration Ergocalciferol 50,000 unit 03/09/18 10:00 03/09/18 10:32 Drisdol - PO 50,000 unit Q7D@1000 [facility] Administration Gabapentin 600 mg 03/06/18 22:00 03/15/18 10:37 Neurontin - PO 600 mg BID [facility] Administration Levothyroxine Sodium 88 mcg 03/09/18 07:00 03/15/18 06:01 Synthroid - PO 88 mcg DAILY@0700 [facility] Administration Metoprolol Tartrate 12.5 mg 03/14/18 10:00 03/15/18 10:40 Lopressor - PO Not Given DAILY [facility] Nystatin/Triamcinolone Acetonide 1 applic 03/13/18 22:00 03/15/18 11:28 Mycolog Ii Cream - TP 1 applic BID [facility] Administration Pantoprazole Sodium 40 mg 03/07/18 10:00 03/15/18 10:37 Protonix - PO 40 mg DAILY [facility] Administration Pramipexole Dihydrochloride 0.25 mg 03/06/18 22:00 03/14/18 21:10 Mirapex - PO 0.25 mg HS [facility] Administration Tramadol HCl 50 mg 03/06/18 16:01 03/14/18 06:29 Ultram - PO 50 mg Q8H PRN Administration PAIN LEVEL 7 - 10 Valacyclovir HCl 500 mg 03/10/18 06:00 03/15/18 05:56 Valtrex - PO 500 mg DAILY@0600 [facility] Administration Warfarin Sodium 3 mg 03/15/18 18:00 Coumadin - PO DAILY@1800 [facility] Zinc Sulfate 220 mg 03/09/18 10:00 03/15/18 10:38 Orazinc - PO 220 mg DAILY [facility] Administration Impression 1. hypocalcemia 2. hypokalemia 3. multiple myeloma 4. hypothyroidism 5. htn Plan - calcitriol held - cont calcium - monitor calcium levels closely after discharge - can see as outpt as needed - kept her on 2 tabs of calcium as I did not want her levels to drop after stopping the calcitriol - cont wound care to leg
--- NOTE | 2018-03-15 12:49 | PN ---
Progress Note (short form) - Note Progress Note: hypocalcemia correction noted,no complaint Current Active Problems Electrolyte abnormality (Acute) Hypercoagulable state (Acute) Hypocalcemia (Acute) Hypotension (Acute) Hypothyroidism associated with surgical procedure (Acute) Rash (Acute) Supratherapeutic INR (Acute) Wound of right lower extremity (Acute) Abnormal Lab Results 03/14/18 03/15/18 03/15/18 06:00 06:00 06:00 PT with INR 17.10 H INR 1.44 H Random Glucose 69 L Calcium 8.3 L Iron 20 L TIBC 117 L Total Protein 4.9 L Albumin 1.6 L Laboratory Tests 03/15/18 06:00 Calcium 8.3 L Albumin 1.6 L corrected calcium 9.1 plan: dc calcitriol repeat calcium and vit d as outpatient Current Medications Generic Name Dose Route Start Last Admin Trade Name Freq PRN Reason Stop Dose Admin Acetaminophen 650 mg 03/06/18 16:01 03/14/18 21:12 Tylenol - PO 650 mg Q6H PRN Administration FEVER Amino Acids 30 ml 03/08/18 17:30 03/15/18 10:37 Prosource No Carb Liquid Pkt PO 30 ml BID@0800,1730 [facility] Administration Ascorbic Acid 250 mg 03/09/18 10:00 03/15/18 10:38 Vitamin C - PO 250 mg DAILY [facility] Administration Calcium Carbonate 1,000 mg 03/09/18 10:00 03/15/18 10:38 Os-Severo 500mg - PO 1,000 mg DAILY [facility] Administration Collagenase 1 applic 03/09/18 14:00 03/15/18 11:28 Santyl - TP 1 applic DAILY [facility] Administration Protocol Enoxaparin Sodium 70 mg 03/15/18 10:00 03/15/18 10:38 Lovenox - SQ 70 mg BID [facility] Administration Ergocalciferol 50,000 unit 03/09/18 10:00 03/09/18 10:32 Drisdol - PO 50,000 unit Q7D@1000 [facility] Administration Gabapentin 600 mg 03/06/18 22:00 03/15/18 10:37 Neurontin - PO 600 mg BID [facility] Administration Levothyroxine Sodium 88 mcg 03/09/18 07:00 03/15/18 06:01 Synthroid - PO 88 mcg DAILY@0700 [facility] Administration Metoprolol Tartrate 12.5 mg 03/14/18 10:00 03/15/18 10:40 Lopressor - PO Not Given DAILY [facility] Nystatin/Triamcinolone Acetonide 1 applic 03/13/18 22:00 03/15/18 11:28 Mycolog Ii Cream - TP 1 applic BID [facility] Administration Pantoprazole Sodium 40 mg 03/07/18 10:00 03/15/18 10:37 Protonix - PO 40 mg DAILY [facility] Administration Pramipexole Dihydrochloride 0.25 mg 03/06/18 22:00 03/14/18 21:10 Mirapex - PO 0.25 mg HS [facility] Administration Tramadol HCl 50 mg 03/06/18 16:01 03/14/18 06:29 Ultram - PO 50 mg Q8H PRN Administration PAIN LEVEL 7 - 10 Valacyclovir HCl 500 mg 03/10/18 06:00 03/15/18 05:56 Valtrex - PO 500 mg DAILY@0600 [facility] Administration Warfarin Sodium 3 mg 03/15/18 18:00 Coumadin - PO DAILY@1800 [facility] Zinc Sulfate 220 mg 03/09/18 10:00 03/15/18 10:38 Orazinc - PO 220 mg DAILY [facility] Administration Problem List - Problems (1) Hypothyroidism associated with surgical procedure Code(s): E89.0 - POSTPROCEDURAL HYPOTHYROIDISM (2) Electrolyte abnormality Code(s): E87.8 - OTH DISORDERS OF ELECTROLYTE AND FLUID BALANCE, NEC (3) Hypercoagulable state Code(s): D68.59 - OTHER PRIMARY THROMBOPHILIA (4) Hypotension Code(s): I95.9 - HYPOTENSION, UNSPECIFIED (5) Supratherapeutic INR Code(s): R79.1 - ABNORMAL COAGULATION PROFILE (6) Wound of right lower extremity Code(s): S81.801A - UNSPECIFIED OPEN WOUND, RIGHT LOWER LEG, INITIAL ENCOUNTER (7) Anemia Code(s): D64.9 - ANEMIA, UNSPECIFIED Qualifiers: Anemia type: B12 deficiency 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
[2018-03-15 13:57] VITALS: BP 110/62; PULSE 69; TEMP 99
--- NOTE | 2018-03-15 14:02 | PN ---
Progress Note (short form) - Note Progress Note: s: no cp sob palps dizzy o: Vital Signs Period Temp Pulse Resp BP Sys/Ferrer Pulse Ox Last 24 Hr 98.0 F-99.3 F 68-78 17-18 102-117/54-73 95 nad no jvd rrr s1s2 no mrg cta bl nl eff aaox3 no le edema no jaundice diaphoresis Current Medications Generic Name Dose Route Start Last Admin Trade Name Freq PRN Reason Stop Dose Admin Acetaminophen 650 mg 03/06/18 16:01 03/14/18 21:12 Tylenol - PO 650 mg Q6H PRN Administration FEVER Amino Acids 30 ml 03/08/18 17:30 03/15/18 10:37 Prosource No Carb Liquid Pkt PO 30 ml BID@0800,1730 [facility] Administration Ascorbic Acid 250 mg 03/09/18 10:00 03/15/18 10:38 Vitamin C - PO 250 mg DAILY [facility] Administration Calcium Carbonate 1,000 mg 03/09/18 10:00 03/15/18 10:38 Os-Severo 500mg - PO 1,000 mg DAILY [facility] Administration Collagenase 1 applic 03/09/18 14:00 03/15/18 11:28 Santyl - TP 1 applic DAILY [facility] Administration Protocol Enoxaparin Sodium 70 mg 03/15/18 10:00 03/15/18 10:38 Lovenox - SQ 70 mg BID [facility] Administration Ergocalciferol 50,000 unit 03/09/18 10:00 03/09/18 10:32 Drisdol - PO 50,000 unit Q7D@1000 [facility] Administration Gabapentin 600 mg 03/06/18 22:00 03/15/18 10:37 Neurontin - PO 600 mg BID [facility] Administration Levothyroxine Sodium 88 mcg 03/09/18 07:00 03/15/18 06:01 Synthroid - PO 88 mcg DAILY@0700 [facility] Administration Metoprolol Tartrate 12.5 mg 03/14/18 10:00 03/15/18 10:40 Lopressor - PO Not Given DAILY [facility] Nystatin/Triamcinolone Acetonide 1 applic 03/13/18 22:00 03/15/18 11:28 Mycolog Ii Cream - TP 1 applic BID [facility] Administration Pantoprazole Sodium 40 mg 03/07/18 10:00 03/15/18 10:37 Protonix - PO 40 mg DAILY [facility] Administration Pramipexole Dihydrochloride 0.25 mg 03/06/18 22:00 03/14/18 21:10 Mirapex - PO 0.25 mg HS [facility] Administration Tramadol HCl 50 mg 03/06/18 16:01 03/14/18 06:29 Ultram - PO 50 mg Q8H PRN Administration PAIN LEVEL 7 - 10 Valacyclovir HCl 500 mg 03/10/18 06:00 03/15/18 05:56 Valtrex - PO 500 mg DAILY@0600 [facility] Administration Warfarin Sodium 3 mg 03/15/18 18:00 Coumadin - PO DAILY@1800 [facility] Zinc Sulfate 220 mg 03/09/18 10:00 03/15/18 10:38 Orazinc - PO 220 mg DAILY [facility] Administration CBC, BMP 03/14/18 06:00 03/15/18 06:00 MPI 2013 (damir): no STs; no ischemia; nl EF Echo 09/08: nl LV size and function, EF 55-60%, mild AR, RA mildly enlarged, mild -mod TR, aorta atherosclerotic plaque present Echo 2014: nl LVSF; nl RV; mild-mod AI; mod TR; RVSP 40-50 a/p: 87F h/o DM, cellulitis, mult myeloma, afib and DVT on coumadin, hypothyroidism p/w fever with hypotension concerns for sepsis. Abnormal ECG -rare PVCs and PAC likely due to ongoing septic process and initial electrolyte imbalance (now improved) -Preserved LV function on last echo -Would Continue Metoprolol 12.5mg daily (Hold for SBP <90mmHg) fever, cellulitis - on abx - ID following Afib - in sr, cont bb - cont coumadin per INR cardiac [facility] stable
[2018-03-15] MEDS: traMADol HCL 50 MG TABLET PO PRN (14:37)
[2018-03-15] MEDS ORDERED: WARFARIN NA 3 MG TABLET PO SCH (18:00)
== END 2018-03-15 15:34 | DRG 871 ==
LOC: JER 10:24 → JERBED 13:30 → J5S 03-08 02:33
PROVIDERS: ADMIT Family Medicine; ATTEND Family Medicine
DX: A41.9 Sepsis, unspecified organism (principal); R65.21 Severe sepsis with septic shock; L03.115 Cellulitis of right lower limb; N17.9 Acute kidney failure, unspecified; E87.2 Acidosis; C90.00 Multiple myeloma not having achieved remission; L97.919 Non-pressure chronic ulcer of unspecified part of right lower leg with unspecified severity; I73.9 Peripheral vascular disease, unspecified; I95.9 Hypotension, unspecified; I48.91 Unspecified atrial fibrillation; R79.1 Abnormal coagulation profile; D51.0 Vitamin B12 deficiency anemia due to intrinsic factor deficiency; E20.9 Hypoparathyroidism, unspecified; Z86.718 Personal history of other venous thrombosis and embolism; E89.0 Postprocedural hypothyroidism; I10 Essential (primary) hypertension; Z85.850 Personal history of malignant neoplasm of thyroid; E78.5 Hyperlipidemia, unspecified; Z87.891 Personal history of nicotine dependence; E86.0 Dehydration; I87.8 Other specified disorders of veins; K21.9 Gastro-esophageal reflux disease without esophagitis; E87.8 Other disorders of electrolyte and fluid balance, not elsewhere classified; E16.2 Hypoglycemia, unspecified; E86.1 Hypovolemia; E88.09 Other disorders of plasma-protein metabolism, not elsewhere classified; Z79.01 Long term (current) use of anticoagulants; B96.5 Pseudomonas (aeruginosa) (mallei) (pseudomallei) as the cause of diseases classified elsewhere; B96.4 Proteus (mirabilis) (morganii) as the cause of diseases classified elsewhere
CPT/HCPCS: 36415; 70450-TC; 71045-TC-FY; 73610-TC-LT-FY; 73630-TC-LT; 80048; 80053; 81003; 81015; 82040; 82272; 82533; 82728; 82803; 82962; 83540; 83550; 83605; 83735; 83970; 84100; 84443; 84484; 85025; 85027; 85610; 85730; 87040; 87070; 87086; 87186; 87205; 93005; 93010; 93971-TC; 97116-GP; 97161-GP; 99285-25; G0463-25; G0480; J7030

== ENCOUNTER 2018-03-21 07:25 | Day surgery (SDC) | payer OTHER, BC, MEDICARE ==
[2018-03-21] MEDS ORDERED: BORTEZOMIB (VELCADE) 2.5 MG/ML SUB-Q INJECTION SQ ONE (10:30)
[2018-03-21 10:46] LABS: BASO % 5.7 % (0-2.0); EOS % 1.6 % (0-4.5); HEMATOCRIT 30.4 % (32.4-45.2); HEMOGLOBIN 10.6 GM/dL (10.7-15.3); LYMPH % 17.7 % (8-40); MCH 32.5 pg (25.7-33.7); MEAN CELL VOLUME 92.7 fl (80-96); MEAN PLT VOLUME 8.1 fl (7.5-11.1); MONO % 8.8 % (3.8-10.2); NEUT % 66.2 % (42.8-82.8); PLATELET COUNT 392 K/MM3 (134-434); RBC 3.28 M/mm3 (3.60-5.2); RDW 19.7 % (11.6-15.6); WHITE BLOOD COUNT 3.7 K/mm3 (4.0-10.0)
[2018-03-21 11:22] LABS: ALBUMIN 2.3 g/dl (3.4-5.0); ALK PHOS 89 U/L (45-117); ANION GAP 7 MMOL/L (8-16); BILIRUBIN,DIRECT 0.2 mg/dL (0.0-0.2); BILIRUBIN,TOTAL 0.3 mg/dL (0.2-1); BLOOD UREA NITROGEN 6 mg/dL (7-18); CHLORIDE 102 mmol/L (98-107); CO2 28 mmol/L (21-32); CREATININE 0.8 mg/dL (0.55-1.3); GLUCOSE,RANDOM 81 mg/dL (74-106); MAGNESIUM 2.1 mg/dL (1.8-2.4); POTASSIUM 3.8 mmol/L (3.5-5.1); SGOT/AST 66 U/L (15-37); SGPT/ALT 52 U/L (13-61); SODIUM 137 mmol/L (136-145); TOT PROT 5.7 g/dl (6.4-8.2); URIC ACID 4.1 mg/dL (2.6-7.2)
[2018-03-21 12:00] LABS: LDH 222 U/L (84-246)
[2018-03-21 12:44] LABS: ANISOCYTOSIS 2+; MACROCYTOSIS 1+; OVALOCYTE 1+; PLATELET ESTIMATE NORMAL; TARGET CELLS 1+
[2018-03-21 15:43] VITALS: BP 116/56; PULSE 63; TEMP 98.1
[2018-03-22 08:09] LABS: IGA IMMUNOGLOBULIN 222 mg/dL (64-422); IGG IMMUNOGLOBULIN 659 mg/dL (700-1600); IGM IMMUNOGLOBULIN 37 mg/dL (26-217)
[2018-03-23 00:09] LABS: FREE KAPPA,SERUM 19.3 mg/L (3.3-19.4)
== END 2018-03-21 12:00 | disposition home or self-care (01) ==
LOC: JONCCHEMO 07:25 → J7W 11:35 → JONCCHEMO 12:00
PROVIDERS: ATTEND Internal Medicine Hematology & Oncology
DX: Z51.11 Encounter for antineoplastic chemotherapy (principal); C90.00 Multiple myeloma not having achieved remission; E11.9 Type 2 diabetes mellitus without complications; E03.9 Hypothyroidism, unspecified; G62.9 Polyneuropathy, unspecified
CPT/HCPCS: 36415; 80053; 80076; 82784; 83615; 83735; 83883; 84550; 85025; 96401; J9041

== ENCOUNTER 2018-04-04 07:34 | Day surgery (SDC) | payer OTHER, BC ==
[2018-04-04 09:29] LABS: BASO % 1.3 % (0-2.0); EOS % 2.4 % (0-4.5); HEMOGLOBIN 8.9 GM/dL (10.7-15.3); MCH 31.5 pg (25.7-33.7); MCHC 34.1 g/dl (32.0-36.0); MEAN CELL VOLUME 92.5 fl (80-96); MEAN PLT VOLUME 7.4 fl (7.5-11.1); MONO % 10.9 % (3.8-10.2); NEUT % 71.4 % (42.8-82.8); PLATELET COUNT 337 K/MM3 (134-434); RBC 2.81 M/mm3 (3.60-5.2); RDW 19.2 % (11.6-15.6); WHITE BLOOD COUNT 4.3 K/mm3 (4.0-10.0)
[2018-04-04] MEDS ORDERED: BORTEZOMIB (VELCADE) 2.5 MG/ML SUB-Q INJECTION SQ ONE (10:00)
[2018-04-04 10:01] LABS: ALBUMIN 2.4 g/dl (3.4-5.0); ALBUMIN 2.5 g/dl (3.4-5.0); ALK PHOS 66 U/L (45-117); ANION GAP 7 MMOL/L (8-16); BILIRUBIN,DIRECT 0.4 mg/dL (0.0-0.2); BILIRUBIN,TOTAL 0.9 mg/dL (0.2-1); BLOOD UREA NITROGEN 6 mg/dL (7-18); CALCIUM 8.4 mg/dL (8.5-10.1); CHLORIDE 105 mmol/L (98-107); CO2 28 mmol/L (21-32); CREATININE 0.7 mg/dL (0.55-1.3); GLUCOSE,RANDOM 76 mg/dL (74-106); POTASSIUM 4.2 mmol/L (3.5-5.1); SGOT/AST 29 U/L (15-37); SGPT/ALT 20 U/L (13-61); SODIUM 140 mmol/L (136-145); TOT PROT 5.5 g/dl (6.4-8.2)
[2018-04-04 16:54] VITALS: BP 117/57; PULSE 71; TEMP 97.6
[2018-04-04] MEDS ORDERED: PORTA CATH FLUSH 10 ML IVPUSH ONE (16:54)
== END 2018-04-04 11:30 | disposition home or self-care (01) ==
LOC: JONCCHEMO 07:34 → J7W 10:39 → JONCCHEMO 11:30
PROVIDERS: ATTEND Internal Medicine Hematology & Oncology
DX: Z51.11 Encounter for antineoplastic chemotherapy (principal); C90.00 Multiple myeloma not having achieved remission
CPT/HCPCS: 36415; 80053; 80076; 83735; 85025; 96401; J9041

== ENCOUNTER 2018-04-11 05:38 | Day surgery (SDC) | payer OTHER, BC ==
[2018-04-11 09:01] LABS: BASO % 0.4 % (0-2.0); HEMATOCRIT 29.5 % (32.4-45.2); LYMPH % 10.8 % (8-40); MCH 31.8 pg (25.7-33.7); MEAN CELL VOLUME 93.6 fl (80-96); MEAN PLT VOLUME 8.4 fl (7.5-11.1); NEUT % 74.8 % (42.8-82.8); PLATELET COUNT 317 K/MM3 (134-434); RBC 3.15 M/mm3 (3.60-5.2); WHITE BLOOD COUNT 4.7 K/mm3 (4.0-10.0)
[2018-04-11 09:28] LABS: ALBUMIN 2.8 g/dl (3.4-5.0); ALK PHOS 73 U/L (45-117); ANION GAP 5 MMOL/L (8-16); BILIRUBIN,TOTAL 0.5 mg/dL (0.2-1); BLOOD UREA NITROGEN 7 mg/dL (7-18); CHLORIDE 105 mmol/L (98-107); CO2 29 mmol/L (21-32); CREATININE 0.8 mg/dL (0.55-1.3); GLUCOSE,RANDOM 104 mg/dL (74-106); POTASSIUM 4.2 mmol/L (3.5-5.1); SGOT/AST 28 U/L (15-37); SGPT/ALT 21 U/L (13-61); SODIUM 140 mmol/L (136-145)
[2018-04-11 09:41] LABS: ALBUMIN 2.9 g/dl (3.4-5.0); BILIRUBIN,DIRECT 0.2 mg/dL (0.0-0.2); BILIRUBIN,TOTAL 0.4 mg/dL (0.2-1); MAGNESIUM 2.1 mg/dL (1.8-2.4); TOT PROT 6.1 g/dl (6.4-8.2)
[2018-04-11] MEDS ORDERED: BORTEZOMIB (VELCADE) 2.5 MG/ML SUB-Q INJECTION SQ ONE (10:00)
[2018-04-11 14:33] VITALS: BP 105/47; PULSE 71; TEMP 98.1
== END 2018-04-11 14:33 | disposition home or self-care (01) ==
LOC: JONCCHEMO 05:38 → J7W 09:36 → JONCCHEMO 14:33
PROVIDERS: ATTEND Internal Medicine Hematology & Oncology
DX: Z51.11 Encounter for antineoplastic chemotherapy (principal); C90.00 Multiple myeloma not having achieved remission; E11.9 Type 2 diabetes mellitus without complications; E03.9 Hypothyroidism, unspecified; G62.9 Polyneuropathy, unspecified
CPT/HCPCS: 36415; 80053; 80076; 83735; 85025; 96401; J9041

== ENCOUNTER 2018-05-02 05:41 | Day surgery (SDC) | payer OTHER, BC ==
[2018-05-02] MEDS ORDERED: BORTEZOMIB (VELCADE) 2.5 MG/ML SUB-Q INJECTION SQ ONE (09:00)
[2018-05-02] MEDS ORDERED: ZOLEDRONIC ACID 4 MG in SODIUM CHLORIDE 100 ML IVPB ONE (09:15)
[2018-05-02 09:49] LABS: BASO % 1.1 % (0-2.0); EOS % 2.1 % (0-4.5); HEMOGLOBIN 10.2 GM/dL (10.7-15.3); LYMPH % 12.7 % (8-40); MCH 31.4 pg (25.7-33.7); MCHC 33.9 g/dl (32.0-36.0); MEAN CELL VOLUME 92.5 fl (80-96); MEAN PLT VOLUME 7.9 fl (7.5-11.1); MONO % 11.5 % (3.8-10.2); NEUT % 72.6 % (42.8-82.8); PLATELET COUNT 285 K/MM3 (134-434); RBC 3.24 M/mm3 (3.60-5.2); RDW 19.5 % (11.6-15.6); WHITE BLOOD COUNT 3.5 K/mm3 (4.0-10.0)
[2018-05-02 10:11] LABS: ALBUMIN 2.8 g/dl (3.4-5.0); ALK PHOS 62 U/L (45-117); ANION GAP 8 MMOL/L (8-16); BILIRUBIN,DIRECT 0.2 mg/dL (0.0-0.2); BILIRUBIN,TOTAL 0.4 mg/dL (0.2-1); BLOOD UREA NITROGEN 5 mg/dL (7-18); CHLORIDE 108 mmol/L (98-107); CO2 27 mmol/L (21-32); CREATININE 0.6 mg/dL (0.55-1.3); GLUCOSE,RANDOM 76 mg/dL (74-106); LDH 189 U/L (84-246); MAGNESIUM 2.2 mg/dL (1.8-2.4); POTASSIUM 3.5 mmol/L (3.5-5.1); SGOT/AST 15 U/L (15-37); SGPT/ALT 15 U/L (13-61); SODIUM 143 mmol/L (136-145); TOT PROT 5.7 g/dl (6.4-8.2); URIC ACID 3.7 mg/dL (2.6-7.2)
[2018-05-02 16:55] VITALS: BP 128/62; PULSE 66; TEMP 97.8
== END 2018-05-02 11:35 | disposition home or self-care (01) ==
LOC: JONCCHEMO 05:41 → J7W 10:04 → JONCCHEMO 11:35
PROVIDERS: ATTEND Internal Medicine Hematology & Oncology
PROC: 3E01305 Introduction of Other Antineoplastic into Subcutaneous Tissue, Percutaneous Approach (ICD-10-PCS; principal; 2018-05-02)
PROC: 3E033GC Introduction of Other Therapeutic Substance into Peripheral Vein, Percutaneous Approach (ICD-10-PCS; 2018-05-02)
DX: Z51.11 Encounter for antineoplastic chemotherapy (principal); C90.00 Multiple myeloma not having achieved remission; G62.9 Polyneuropathy, unspecified; E11.9 Type 2 diabetes mellitus without complications
CPT/HCPCS: 36415; 80048; 80076; 83615; 83735; 84550; 85025; 96365; 96401; 96417; J3489; J9041

== ENCOUNTER 2018-05-16 07:07 | Day surgery (SDC) | payer OTHER, BC, MEDICARE ==
[2018-05-16 08:31] LABS: BASO % 0.9 % (0-2.0); EOS % 1.9 % (0-4.5); HEMATOCRIT 32.1 % (32.4-45.2); HEMOGLOBIN 10.6 GM/dL (10.7-15.3); LYMPH % 13.6 % (8-40); MCH 30.4 pg (25.7-33.7); MCHC 33.1 g/dl (32.0-36.0); MEAN CELL VOLUME 91.6 fl (80-96); MEAN PLT VOLUME 7.4 fl (7.5-11.1); MONO % 11.9 % (3.8-10.2); NEUT % 71.7 % (42.8-82.8); PLATELET COUNT 244 K/MM3 (134-434); RDW 19.5 % (11.6-15.6); WHITE BLOOD COUNT 3.7 K/mm3 (4.0-10.0)
[2018-05-16 09:06] LABS: ALBUMIN 2.9 g/dl (3.4-5.0); ALK PHOS 61 U/L (45-117); ANION GAP 7 MMOL/L (8-16); BILIRUBIN,DIRECT 0.2 mg/dL (0.0-0.2); BILIRUBIN,TOTAL 0.5 mg/dL (0.2-1); BLOOD UREA NITROGEN 8 mg/dL (7-18); CALCIUM 8.7 mg/dL (8.5-10.1); CHLORIDE 109 mmol/L (98-107); CO2 28 mmol/L (21-32); CREATININE 0.8 mg/dL (0.55-1.3); GLUCOSE,RANDOM 86 mg/dL (74-106); MAGNESIUM 2.2 mg/dL (1.8-2.4); POTASSIUM 4.1 mmol/L (3.5-5.1); SGOT/AST 17 U/L (15-37); SGPT/ALT 17 U/L (13-61); SODIUM 144 mmol/L (136-145); TOT PROT 5.8 g/dl (6.4-8.2)
[2018-05-16] MEDS ORDERED: BORTEZOMIB (VELCADE) 2.5 MG/ML SUB-Q INJECTION SQ ONE (10:00)
[2018-05-16 11:10] VITALS: BP 110/47; PULSE 55; TEMP 97.7
== END 2018-05-16 10:00 | disposition home or self-care (01) ==
LOC: JONCCHEMO 07:07 → J7W 09:14 → JONCCHEMO 10:00
PROVIDERS: ATTEND Internal Medicine Hematology & Oncology
DX: Z51.11 Encounter for antineoplastic chemotherapy (principal); C90.00 Multiple myeloma not having achieved remission; G62.9 Polyneuropathy, unspecified; E11.9 Type 2 diabetes mellitus without complications
CPT/HCPCS: 36415; 80048; 80076; 83735; 85025; 96401; J9041

== ENCOUNTER 2018-05-30 06:27 | Day surgery (SDC) | payer OTHER, BC, MEDICARE ==
[2018-05-30 08:44] LABS: BASO % 0.5 % (0-2.0); EOS % 1.7 % (0-4.5); HEMATOCRIT 32.2 % (32.4-45.2); HEMOGLOBIN 10.7 GM/dL (10.7-15.3); LYMPH % 16.2 % (8-40); MCH 30.3 pg (25.7-33.7); MCHC 33.1 g/dl (32.0-36.0); MEAN CELL VOLUME 91.4 fl (80-96); MONO % 12.9 % (3.8-10.2); NEUT % 68.7 % (42.8-82.8); PLATELET COUNT 231 K/MM3 (134-434); RBC 3.52 M/mm3 (3.60-5.2); RDW 19.5 % (11.6-15.6); WHITE BLOOD COUNT 3.9 K/mm3 (4.0-10.0)
[2018-05-30 09:14] LABS: ALK PHOS 59 U/L (45-117); ANION GAP 6 MMOL/L (8-16); BILIRUBIN,DIRECT 0.2 mg/dL (0.0-0.2); BILIRUBIN,TOTAL 0.3 mg/dL (0.2-1); BLOOD UREA NITROGEN 11 mg/dL (7-18); CALCIUM 9.3 mg/dL (8.5-10.1); CHLORIDE 108 mmol/L (98-107); CO2 28 mmol/L (21-32); CREATININE 0.9 mg/dL (0.55-1.3); GLUCOSE,RANDOM 88 mg/dL (74-106); LDH 208 U/L (84-246); MAGNESIUM 2.3 mg/dL (1.8-2.4); POTASSIUM 4.2 mmol/L (3.5-5.1); SGOT/AST 17 U/L (15-37); SGPT/ALT 16 U/L (13-61); SODIUM 141 mmol/L (136-145); TOT PROT 5.8 g/dl (6.4-8.2); URIC ACID 3.6 mg/dL (2.6-7.2)
[2018-05-30] MEDS ORDERED: BORTEZOMIB (VELCADE) 2.5 MG/ML SUB-Q INJECTION SQ ONE (10:00)
[2018-05-30 14:29] VITALS: BP 104/51; PULSE 56; TEMP 97.8
[2018-05-31 08:07] LABS: IGA IMMUNOGLOBULIN 139 mg/dL (64-422); IGM IMMUNOGLOBULIN 19 mg/dL (26-217)
[2018-05-31 19:12] LABS: FREE KAPPA,SERUM 41.2 mg/L (3.3-19.4)
[2018-06-01 06:06] LABS: KAPPA LAMBDA RATIO URIN 33.33 (2.04-10.37)
[2018-06-01 15:23] LABS: TOTAL PROTEIN, URINE 24.7 mg/dL (Not Estab.)
== END 2018-05-30 10:40 | disposition home or self-care (01) ==
LOC: JONCCHEMO 06:27 → J7W 09:36 → JONCCHEMO 10:40
PROVIDERS: ATTEND Internal Medicine Hematology & Oncology
DX: Z51.11 Encounter for antineoplastic chemotherapy (principal); C90.00 Multiple myeloma not having achieved remission; G62.9 Polyneuropathy, unspecified; E11.9 Type 2 diabetes mellitus without complications
CPT/HCPCS: 36415; 80048; 80076; 82784; 82785; 83615; 83735; 83883; 84155; 84156; 84157; 84165; 84550; 85025; 96401; J9041

== ENCOUNTER 2018-06-13 05:47 | Day surgery (SDC) | payer OTHER, BC, MEDICARE ==
[2018-06-13 08:38] VITALS: TEMP 97.5
[2018-06-13 08:56] LABS: BASO % 1.1 % (0-2.0); EOS % 2.5 % (0-4.5); HEMATOCRIT 32.7 % (32.4-45.2); HEMOGLOBIN 11.2 GM/dL (10.7-15.3); LYMPH % 20.8 % (8-40); MCH 31.1 pg (25.7-33.7); MCHC 34.3 g/dl (32.0-36.0); MEAN CELL VOLUME 90.5 fl (80-96); MONO % 15.9 % (3.8-10.2); NEUT % 59.7 % (42.8-82.8); PLATELET COUNT 223 K/MM3 (134-434); RBC 3.62 M/mm3 (3.60-5.2); RDW 19.4 % (11.6-15.6); WHITE BLOOD COUNT 3.7 K/mm3 (4.0-10.0)
[2018-06-13] MEDS ORDERED: BORTEZOMIB (VELCADE) 2.5 MG/ML SUB-Q INJECTION SQ ONE (09:00)
[2018-06-13 09:32] LABS: ALBUMIN 3.2 g/dl (3.4-5.0); BILIRUBIN,DIRECT 0.1 mg/dL (0.0-0.2); BILIRUBIN,TOTAL 0.3 mg/dL (0.2-1)
[2018-06-13 09:41] LABS: ALK PHOS 64 U/L (45-117); ANION GAP 7 MMOL/L (8-16); BILIRUBIN,TOTAL 0.3 mg/dL (0.2-1); BLOOD UREA NITROGEN 17 mg/dL (7-18); CALCIUM 8.5 mg/dL (8.5-10.1); CHLORIDE 104 mmol/L (98-107); CO2 28 mmol/L (21-32); CREATININE 0.7 mg/dL (0.55-1.3); GLUCOSE,RANDOM 72 mg/dL (74-106); SGOT/AST 20 U/L (15-37); SGPT/ALT 20 U/L (13-61); SODIUM 139 mmol/L (136-145); TOT PROT 5.9 g/dl (6.4-8.2)
[2018-06-13 10:01] VITALS: BP 115/54; PULSE 54
== END 2018-06-13 09:40 | disposition home or self-care (01) ==
LOC: JONCCHEMO 05:47 → J7W 09:22 → JONCCHEMO 09:40
PROVIDERS: ATTEND Internal Medicine Hematology & Oncology
DX: Z51.11 Encounter for antineoplastic chemotherapy (principal); C90.00 Multiple myeloma not having achieved remission; G62.9 Polyneuropathy, unspecified; E11.9 Type 2 diabetes mellitus without complications
CPT/HCPCS: 36415; 80053; 80076; 83735; 85025; 96401; J9041

== ENCOUNTER 2018-06-27 08:22 | Day surgery (SDC) | payer OTHER, BC, MEDICARE ==
[2018-06-27 11:28] LABS: BASO % 0.8 % (0-2.0); EOS % 3.8 % (0-4.5); HEMATOCRIT 32.9 % (32.4-45.2); HEMOGLOBIN 11.1 GM/dL (10.7-15.3); LYMPH % 14.7 % (8-40); MCH 30.3 pg (25.7-33.7); MCHC 33.7 g/dl (32.0-36.0); MEAN PLT VOLUME 8.2 fl (7.5-11.1); MONO % 13.5 % (3.8-10.2); NEUT % 67.2 % (42.8-82.8); PLATELET COUNT 192 K/MM3 (134-434); RBC 3.66 M/mm3 (3.60-5.2); RDW 19.2 % (11.6-15.6); WHITE BLOOD COUNT 4.1 K/mm3 (4.0-10.0)
[2018-06-27 12:00] LABS: ALBUMIN 3.1 g/dl (3.4-5.0); ALK PHOS 64 U/L (45-117); ANION GAP 7 MMOL/L (8-16); BILIRUBIN,DIRECT 0.1 mg/dL (0.0-0.2); BILIRUBIN,TOTAL 0.3 mg/dL (0.2-1); BILIRUBIN,TOTAL 0.4 mg/dL (0.2-1); BLOOD UREA NITROGEN 14 mg/dL (7-18); CALCIUM 8.5 mg/dL (8.5-10.1); CHLORIDE 105 mmol/L (98-107); CO2 28 mmol/L (21-32); CREATININE 0.9 mg/dL (0.55-1.3); GLUCOSE,RANDOM 94 mg/dL (74-106); POTASSIUM 3.9 mmol/L (3.5-5.1); SGOT/AST 14 U/L (15-37); SGPT/ALT 18 U/L (13-61); SODIUM 140 mmol/L (136-145); TOT PROT 5.7 g/dl (6.4-8.2); TOT PROT 5.8 g/dl (6.4-8.2); URIC ACID 4.1 mg/dL (2.6-7.2)
[2018-06-27 16:17] VITALS: BP 117/52; PULSE 54; TEMP 97.6
== END 2018-06-27 12:20 | disposition home or self-care (01) ==
LOC: JONCCHEMO 08:22
PROVIDERS: ATTEND Internal Medicine Hematology & Oncology
DX: Z51.11 Encounter for antineoplastic chemotherapy (principal); C90.00 Multiple myeloma not having achieved remission
CPT/HCPCS: 36415; 80053; 80076; 83615; 83735; 84550; 85025; 96401; J9041

== ENCOUNTER 2018-07-11 06:39 | Day surgery (SDC) | payer OTHER, BC, MEDICARE ==
[2018-07-11 09:05] LABS: BASO % 1.9 % (0-2.0); EOS % 2.2 % (0-4.5); HEMATOCRIT 30.4 % (32.4-45.2); HEMOGLOBIN 10.3 GM/dL (10.7-15.3); LYMPH % 24.7 % (8-40); MCH 29.4 pg (25.7-33.7); MCHC 33.8 g/dl (32.0-36.0); MEAN CELL VOLUME 87.1 fl (80-96); MEAN PLT VOLUME 8.1 fl (7.5-11.1); MONO % 15.9 % (3.8-10.2); NEUT % 55.3 % (42.8-82.8); PLATELET COUNT 231 K/MM3 (134-434); RBC 3.49 M/mm3 (3.60-5.2); RDW 18.9 % (11.6-15.6); WHITE BLOOD COUNT 3.9 K/mm3 (4.0-10.0)
[2018-07-11 09:35] LABS: ALBUMIN 2.7 g/dl (3.4-5.0); ALK PHOS 53 U/L (45-117); ANION GAP 5 MMOL/L (8-16); BILIRUBIN,TOTAL 0.4 mg/dL (0.2-1); BLOOD UREA NITROGEN 12 mg/dL (7-18); CALCIUM 8.2 mg/dL (8.5-10.1); CHLORIDE 109 mmol/L (98-107); CO2 27 mmol/L (21-32); CREATININE 0.8 mg/dL (0.55-1.3); GLUCOSE,RANDOM 81 mg/dL (74-106); POTASSIUM 4.5 mmol/L (3.5-5.1); SGOT/AST 18 U/L (15-37); SGPT/ALT 16 U/L (13-61); SODIUM 141 mmol/L (136-145); TOT PROT 5.8 g/dl (6.4-8.2)
[2018-07-11] MEDS ORDERED: BORTEZOMIB (VELCADE) 2.5 MG/ML SUB-Q INJECTION SQ ONE (10:00)
[2018-07-11 10:30] LABS: ALBUMIN 2.7 g/dl (3.4-5.0); BILIRUBIN,DIRECT 0.2 mg/dL (0.0-0.2); BILIRUBIN,TOTAL 0.5 mg/dL (0.2-1); MAGNESIUM 1.9 mg/dL (1.8-2.4); TOT PROT 5.8 g/dl (6.4-8.2)
[2018-07-11 15:28] VITALS: BP 105/42; PULSE 52
[2018-07-11 15:29] VITALS: TEMP 98.2
== END 2018-07-11 11:35 | disposition home or self-care (01) ==
LOC: JONCCHEMO 06:39 → J7W 11:10 → JONCCHEMO 11:35
PROVIDERS: ATTEND Internal Medicine Hematology & Oncology
DX: Z51.11 Encounter for antineoplastic chemotherapy (principal); C90.00 Multiple myeloma not having achieved remission; E11.9 Type 2 diabetes mellitus without complications; E03.9 Hypothyroidism, unspecified; G62.9 Polyneuropathy, unspecified
CPT/HCPCS: 36415; 80053; 80076; 83735; 85025; 96401; J9041

== ENCOUNTER 2018-07-25 07:11 | Day surgery (SDC) | payer OTHER, BC, MEDICARE ==
[2018-07-25 09:12] LABS: BASO % 0.3 % (0-2.0); HEMATOCRIT 32.4 % (32.4-45.2); HEMOGLOBIN 10.6 GM/dL (10.7-15.3); LYMPH % 18.5 % (8-40); MCH 28.4 pg (25.7-33.7); MCHC 32.8 g/dl (32.0-36.0); MEAN CELL VOLUME 86.5 fl (80-96); MEAN PLT VOLUME 8.6 fl (7.5-11.1); NEUT % 66.2 % (42.8-82.8); PLATELET COUNT 230 K/MM3 (134-434); RBC 3.74 M/mm3 (3.60-5.2); RDW 18.9 % (11.6-15.6); WHITE BLOOD COUNT 5.1 K/mm3 (4.0-10.0)
[2018-07-25 09:40] LABS: ALBUMIN 2.9 g/dl (3.4-5.0); BILIRUBIN,DIRECT 0.1 mg/dL (0.0-0.2); BILIRUBIN,TOTAL 0.3 mg/dL (0.2-1); MAGNESIUM 2.3 mg/dL (1.8-2.4); TOT PROT 6.1 g/dl (6.4-8.2); URIC ACID 3.2 mg/dL (2.6-7.2)
[2018-07-25 09:43] LABS: ALBUMIN 2.9 g/dl (3.4-5.0); ALK PHOS 53 U/L (45-117); ANION GAP -2 MMOL/L (8-16); BILIRUBIN,TOTAL 0.4 mg/dL (0.2-1); BLOOD UREA NITROGEN 19 mg/dL (7-18); CALCIUM 8.9 mg/dL (8.5-10.1); CHLORIDE 109 mmol/L (98-107); CO2 28 mmol/L (21-32); CREATININE 0.7 mg/dL (0.55-1.3); GLUCOSE,RANDOM 89 mg/dL (74-106); POTASSIUM 3.8 mmol/L (3.5-5.1); SGOT/AST 13 U/L (15-37); SGPT/ALT 21 U/L (13-61); SODIUM 135 mmol/L (136-145); TOT PROT 6.1 g/dl (6.4-8.2)
[2018-07-25] MEDS ORDERED: ZOLEDRONIC ACID 4 MG in SODIUM CHLORIDE 100 ML IVPB ONE (10:00)
[2018-07-25] MEDS ORDERED: BORTEZOMIB (VELCADE) 2.5 MG/ML SUB-Q INJECTION SQ ONE (10:00)
[2018-07-25 14:47] VITALS: BP 111/46; PULSE 55; TEMP 97.8
== END 2018-07-25 12:30 | disposition home or self-care (01) ==
LOC: JONCCHEMO 07:11 → J7W 10:38 → JONCCHEMO 12:30
PROVIDERS: ATTEND Internal Medicine Hematology & Oncology
PROC: 3E033GC Introduction of Other Therapeutic Substance into Peripheral Vein, Percutaneous Approach (ICD-10-PCS; principal; 2018-07-25)
PROC: 3E01305 Introduction of Other Antineoplastic into Subcutaneous Tissue, Percutaneous Approach (ICD-10-PCS; 2018-07-25)
DX: Z51.11 Encounter for antineoplastic chemotherapy (principal); C90.00 Multiple myeloma not having achieved remission
CPT/HCPCS: 36415; 80053; 80076; 83615; 83735; 84550; 85025; 96365; 96401; 96417; J3489; J9041

== ENCOUNTER 2018-08-08 07:10 | Day surgery (SDC) | payer OTHER, BC, MEDICARE ==
[2018-08-08] MEDS ORDERED: BORTEZOMIB (VELCADE) 2.5 MG/ML SUB-Q INJECTION SQ ONE (09:00)
[2018-08-08 09:10] LABS: BASO % 0.3 % (0-2.0); EOS % 0.1 % (0-4.5); HEMATOCRIT 34.3 % (32.4-45.2); HEMOGLOBIN 11.5 GM/dL (10.7-15.3); LYMPH % 12.7 % (8-40); MCH 28.8 pg (25.7-33.7); MCHC 33.5 g/dl (32.0-36.0); MEAN CELL VOLUME 86.1 fl (80-96); MEAN PLT VOLUME 8.4 fl (7.5-11.1); MONO % 10.7 % (3.8-10.2); NEUT % 76.2 % (42.8-82.8); PLATELET COUNT 189 K/MM3 (134-434); RBC 3.98 M/mm3 (3.60-5.2); RDW 20.3 % (11.6-15.6); WHITE BLOOD COUNT 6.1 K/mm3 (4.0-10.0)
[2018-08-08 10:27] LABS: ALBUMIN 3.1 g/dl (3.4-5.0); ALK PHOS 61 U/L (45-117); ANION GAP 7 MMOL/L (8-16); BILIRUBIN,DIRECT 0.2 mg/dL (0.0-0.2); BILIRUBIN,TOTAL 0.4 mg/dL (0.2-1); BLOOD UREA NITROGEN 19 mg/dL (7-18); CALCIUM 9.3 mg/dL (8.5-10.1); CHLORIDE 109 mmol/L (98-107); CO2 26 mmol/L (21-32); GLUCOSE,RANDOM 74 mg/dL (74-106); LDH 218 U/L (84-246); MAGNESIUM 2.2 mg/dL (1.8-2.4); SGOT/AST 18 U/L (15-37); SGPT/ALT 28 U/L (13-61); SODIUM 141 mmol/L (136-145); TOT PROT 6.5 g/dl (6.4-8.2); URIC ACID 3.2 mg/dL (2.6-7.2)
[2018-08-08 14:16] VITALS: BP 144/72; PULSE 72; TEMP 97.4
== END 2018-08-08 11:15 | disposition home or self-care (01) ==
LOC: JONCCHEMO 07:10 → J7W 10:35 → JONCCHEMO 11:15
PROVIDERS: ATTEND Internal Medicine Hematology & Oncology
DX: Z51.11 Encounter for antineoplastic chemotherapy (principal); C90.00 Multiple myeloma not having achieved remission
CPT/HCPCS: 36415; 80048; 80076; 83615; 83735; 84550; 85025; 96401; J9041

== ENCOUNTER 2018-08-22 07:21 | Day surgery (SDC) | payer OTHER, BC, MEDICARE ==
[2018-08-22 09:00] LABS: BASO % 0.9 % (0-2.0); EOS % 4.8 % (0-4.5); HEMATOCRIT 35.2 % (32.4-45.2); HEMOGLOBIN 11.5 GM/dL (10.7-15.3); LYMPH % 13.6 % (8-40); MCH 28.7 pg (25.7-33.7); MCHC 32.8 g/dl (32.0-36.0); MEAN CELL VOLUME 87.3 fl (80-96); MONO % 15.1 % (3.8-10.2); NEUT % 65.6 % (42.8-82.8); PLATELET COUNT 216 K/MM3 (134-434); RBC 4.03 M/mm3 (3.60-5.2); RDW 21.2 % (11.6-15.6); WHITE BLOOD COUNT 4.4 K/mm3 (4.0-10.0)
[2018-08-22] MEDS ORDERED: BORTEZOMIB (VELCADE) 2.5 MG/ML SUB-Q INJECTION SQ ONE (09:00)
[2018-08-22 09:38] LABS: ALBUMIN 2.8 g/dl (3.4-5.0); ALK PHOS 62 U/L (45-117); ANION GAP 8 MMOL/L (8-16); BILIRUBIN,TOTAL 0.5 mg/dL (0.2-1); BLOOD UREA NITROGEN 12 mg/dL (7-18); CALCIUM 8.6 mg/dL (8.5-10.1); CHLORIDE 106 mmol/L (98-107); CO2 25 mmol/L (21-32); CREATININE 0.9 mg/dL (0.55-1.3); GLUCOSE,RANDOM 77 mg/dL (74-106); LDH 203 U/L (84-246); MAGNESIUM 2.2 mg/dL (1.8-2.4); PREALBUMIN 17.6 mg/dl (20-40); SGOT/AST 16 U/L (15-37); SGPT/ALT 24 U/L (13-61); SODIUM 139 mmol/L (136-145); TOT PROT 6.2 g/dl (6.4-8.2); URIC ACID 2.9 mg/dL (2.6-7.2)
[2018-08-22 10:32] LABS: ANISOCYTOSIS 1+; MACROCYTOSIS 0; PLATELET ESTIMATE NORMAL
[2018-08-22 16:43] VITALS: BP 116/56; PULSE 50; TEMP 97.6
== END 2018-08-22 11:30 | disposition home or self-care (01) ==
LOC: JONCCHEMO 07:21 → J7W 08:41 → JONCCHEMO 11:30
PROVIDERS: ATTEND Internal Medicine Hematology & Oncology
DX: Z51.11 Encounter for antineoplastic chemotherapy (principal); C90.00 Multiple myeloma not having achieved remission
CPT/HCPCS: 36415; 80053; 83615; 83735; 84134; 84550; 85025; 96401; J9041

== ENCOUNTER 2018-09-05 07:13 | Day surgery (SDC) | payer OTHER, BC, MEDICARE ==
[2018-09-05 09:15] LABS: BASO % 0.8 % (0-2.0); EOS % 1.4 % (0-4.5); HEMATOCRIT 34.8 % (32.4-45.2); HEMOGLOBIN 11.1 GM/dL (10.7-15.3); LYMPH % 14.3 % (8-40); MCH 28.2 pg (25.7-33.7); MCHC 31.9 g/dl (32.0-36.0); MEAN CELL VOLUME 88.4 fl (80-96); MEAN PLT VOLUME 7.7 fl (7.5-11.1); MONO % 13.7 % (3.8-10.2); NEUT % 69.8 % (42.8-82.8); PLATELET COUNT 216 K/MM3 (134-434); RBC 3.94 M/mm3 (3.60-5.2); RDW 22.5 % (11.6-15.6); WHITE BLOOD COUNT 6.3 K/mm3 (4.0-10.0)
[2018-09-05 09:45] LABS: ALBUMIN 2.9 g/dl (3.4-5.0); BILIRUBIN,TOTAL 0.4 mg/dL (0.2-1); CALCIUM 8.9 mg/dL (8.5-10.1); CREATININE 0.8 mg/dL (0.55-1.3); MAGNESIUM 2.3 mg/dL (1.8-2.4); POTASSIUM 4.1 mmol/L (3.5-5.1); URIC ACID 3.6 mg/dL (2.6-7.2)
[2018-09-05] MEDS ORDERED: BORTEZOMIB (VELCADE) 2.5 MG/ML SUB-Q INJECTION SQ ONE (10:00)
[2018-09-05 11:23] LABS: ANISOCYTOSIS 1+; MACROCYTOSIS 1+; OVALOCYTE 2+; PLATELET ESTIMATE NORMAL; TARGET CELLS 1+
[2018-09-05 17:50] VITALS: BP 140/76; PULSE 88; TEMP 97.5
== END 2018-09-05 11:30 | disposition home or self-care (01) ==
LOC: JONCCHEMO 07:13 → J7W 10:47 → JONCCHEMO 11:30
PROVIDERS: ATTEND Internal Medicine Hematology & Oncology
DX: Z51.11 Encounter for antineoplastic chemotherapy (principal); C90.00 Multiple myeloma not having achieved remission
CPT/HCPCS: 36415; 80053; 83615; 83735; 84550; 85025; 96401; J9041

== ENCOUNTER 2018-09-19 07:25 | Day surgery (SDC) | payer OTHER, BC, MEDICARE ==
[2018-09-19 08:45] LABS: BASO % 0.6 % (0-2.0); EOS % 0.2 % (0-4.5); HEMATOCRIT 31.4 % (32.4-45.2); HEMOGLOBIN 10.1 GM/dL (10.7-15.3); MEAN CELL VOLUME 87.5 fl (80-96); MEAN PLT VOLUME 8.5 fl (7.5-11.1); MONO % 11.2 % (3.8-10.2); PLATELET COUNT 237 K/MM3 (134-434); RBC 3.59 M/mm3 (3.60-5.2); RDW 22.3 % (11.6-15.6); WHITE BLOOD COUNT 7.8 K/mm3 (4.0-10.0)
[2018-09-19 09:14] LABS: ALBUMIN 2.5 g/dl (3.4-5.0); BILIRUBIN,DIRECT 0.2 mg/dL (0.0-0.2); BILIRUBIN,TOTAL 0.5 mg/dL (0.2-1); CALCIUM 8.9 mg/dL (8.5-10.1); CREATININE 1.1 mg/dL (0.55-1.3); MAGNESIUM 2.4 mg/dL (1.8-2.4); POTASSIUM 4.4 mmol/L (3.5-5.1); URIC ACID 3.9 mg/dL (2.6-7.2)
[2018-09-19] MEDS ORDERED: BORTEZOMIB (VELCADE) 2.5 MG/ML SUB-Q INJECTION SQ ONE (10:00)
[2018-09-19 12:09] LABS: ANISOCYTOSIS 2+; MACROCYTOSIS 1+; OVALOCYTE 1+; PLATELET ESTIMATE NORMAL; TEAR DROP CELLS 1+
[2018-09-19 17:48] VITALS: BP 113/63; PULSE 45; TEMP 97.3
== END 2018-09-19 11:15 | disposition home or self-care (01) ==
LOC: JONCCHEMO 07:25 → J7W 09:47 → JONCCHEMO 11:15
PROVIDERS: ATTEND Internal Medicine Hematology & Oncology
DX: Z51.11 Encounter for antineoplastic chemotherapy (principal); C90.00 Multiple myeloma not having achieved remission
CPT/HCPCS: 36415; 80048; 80076; 83615; 83735; 84550; 85025; 96401; J9041

== ENCOUNTER 2018-10-03 07:06 | Day surgery (SDC) | payer OTHER, BC, MEDICARE ==
[2018-10-03] MEDS ORDERED: BORTEZOMIB (VELCADE) 2.5 MG/ML SUB-Q INJECTION SQ ONE (09:00)
[2018-10-03 09:25] LABS: BASO % 0.4 % (0-2.0); EOS % 0.2 % (0-4.5); HEMATOCRIT 31.9 % (32.4-45.2); HEMOGLOBIN 10.5 GM/dL (10.7-15.3); MCH 29.3 pg (25.7-33.7); MEAN CELL VOLUME 88.9 fl (80-96); MEAN PLT VOLUME 8.1 fl (7.5-11.1); MONO % 12.2 % (3.8-10.2); NEUT % 79.2 % (42.8-82.8); PLATELET COUNT 222 K/MM3 (134-434); RBC 3.59 M/mm3 (3.60-5.2); WHITE BLOOD COUNT 7.1 K/mm3 (4.0-10.0)
[2018-10-03 09:51] LABS: ALBUMIN 2.6 g/dl (3.4-5.0); BILIRUBIN,DIRECT 0.1 mg/dL (0.0-0.2); BILIRUBIN,TOTAL 0.2 mg/dL (0.2-1); BLOOD UREA NITROGEN 20.3 mg/dL (7-18); CALCIUM 8.8 mg/dL (8.5-10.1); MAGNESIUM 2.4 mg/dL (1.8-2.4); POTASSIUM 4.5 mmol/L (3.5-5.1); TOT PROT 6.2 g/dl (6.4-8.2); URIC ACID 3.6 mg/dL (2.6-7.2)
[2018-10-03 12:19] LABS: ANISOCYTOSIS 2+; MACROCYTOSIS 1+; OVALOCYTE 1+; PLATELET ESTIMATE NORMAL; TARGET CELLS 1+
[2018-10-03 17:22] VITALS: BP 131/51; PULSE 45; TEMP 98.1
== END 2018-10-03 12:10 | disposition home or self-care (01) ==
LOC: JONCCHEMO 07:06 → J7W 10:27 → JONCCHEMO 12:10
PROVIDERS: ATTEND Internal Medicine Hematology & Oncology
DX: Z51.11 Encounter for antineoplastic chemotherapy (principal); C90.00 Multiple myeloma not having achieved remission
CPT/HCPCS: 36415; 80048; 80076; 83615; 83735; 84550; 85025; 96401; 96409; J9041

== ENCOUNTER 2018-10-17 07:07 | Day surgery (SDC) | payer OTHER, BC, MEDICARE ==
[2018-10-17] MEDS ORDERED: BORTEZOMIB (VELCADE) 2.5 MG/ML SUB-Q INJECTION SQ ONE (09:00)
[2018-10-17 11:42] LABS: BASO % 0.5 % (0-2.0); EOS % 1.4 % (0-4.5); HEMATOCRIT 35.8 % (32.4-45.2); HEMOGLOBIN 11.6 GM/dL (10.7-15.3); LYMPH % 16.8 % (8-40); MCH 29.3 pg (25.7-33.7); MCHC 32.3 g/dl (32.0-36.0); MEAN CELL VOLUME 90.9 fl (80-96); MEAN PLT VOLUME 8.2 fl (7.5-11.1); MONO % 12.9 % (3.8-10.2); NEUT % 68.4 % (42.8-82.8); RBC 3.94 M/mm3 (3.60-5.2); RDW 24.8 % (11.6-15.6); WHITE BLOOD COUNT 7.2 K/mm3 (4.0-10.0)
[2018-10-17 11:52] LABS: PLATELET COUNT 242 K/MM3 (134-434)
[2018-10-17 12:14] LABS: ALBUMIN 2.8 g/dl (3.4-5.0); BILIRUBIN,DIRECT 0.2 mg/dL (0.0-0.2); BILIRUBIN,TOTAL 0.3 mg/dL (0.2-1); BLOOD UREA NITROGEN 18.5 mg/dL (7-18); CREATININE 0.9 mg/dL (0.55-1.3); MAGNESIUM 2.3 mg/dL (1.8-2.4); POTASSIUM 3.8 mmol/L (3.5-5.1); TOT PROT 6.4 g/dl (6.4-8.2); URIC ACID 3.4 mg/dL (2.6-7.2)
[2018-10-17 15:18] LABS: ANISOCYTOSIS 1+; MACROCYTOSIS 0; OVALOCYTE 1+; PLATELET ESTIMATE NORMAL
[2018-10-17 16:55] VITALS: BP 138/47; PULSE 49; TEMP 97.5
== END 2018-10-17 13:00 | disposition home or self-care (01) ==
LOC: JONCCHEMO 07:07 → J7W 10:55 → JONCCHEMO 13:00
PROVIDERS: ATTEND Internal Medicine Hematology & Oncology
DX: Z51.11 Encounter for antineoplastic chemotherapy (principal); C90.00 Multiple myeloma not having achieved remission
CPT/HCPCS: 36415; 80048; 80076; 83615; 83735; 84550; 85025; 96401; J9041

== ENCOUNTER 2018-10-31 07:12 | Day surgery (SDC) | payer OTHER, BC, MEDICARE ==
[2018-10-31 09:25] LABS: BASO % 0.4 % (0-2.0); EOS % 0.2 % (0-4.5); HEMATOCRIT 35.5 % (32.4-45.2); HEMOGLOBIN 11.6 GM/dL (10.7-15.3); MCHC 32.7 g/dl (32.0-36.0); MEAN CELL VOLUME 91.8 fl (80-96); MEAN PLT VOLUME 7.9 fl (7.5-11.1); MONO % 8.9 % (3.8-10.2); PLATELET COUNT 198 K/MM3 (134-434); RBC 3.87 M/mm3 (3.60-5.2); RDW 24.1 % (11.6-15.6); WHITE BLOOD COUNT 5.8 K/mm3 (4.0-10.0)
[2018-10-31 09:57] LABS: ALBUMIN 2.9 g/dl (3.4-5.0); BILIRUBIN,DIRECT 0.1 mg/dL (0.0-0.2); BILIRUBIN,TOTAL 0.2 mg/dL (0.2-1); BLOOD UREA NITROGEN 18.1 mg/dL (7-18); CALCIUM 8.9 mg/dL (8.5-10.1); MAGNESIUM 2.3 mg/dL (1.8-2.4); POTASSIUM 3.4 mmol/L (3.5-5.1); URIC ACID 3.7 mg/dL (2.6-7.2)
[2018-10-31] MEDS ORDERED: BORTEZOMIB (VELCADE) 2.5 MG/ML SUB-Q INJECTION SQ ONE (10:00)
[2018-10-31 10:10] LABS: LYMPH % 11.3 % (8-40); NEUT % 79.2 % (42.8-82.8)
[2018-10-31 11:27] LABS: ANISOCYTOSIS 2+; MACROCYTOSIS 1+; OVALOCYTE 1+; PLATELET ESTIMATE NORMAL
[2018-10-31] MEDS: POTASSIUM CHLORIDE TABS 20 MEQ TABLET.ER (FP) PO SCH ×2 (12:24→12:54)
[2018-10-31 16:57] VITALS: BP 124/68; PULSE 44; TEMP 97.8
[2018-11-02 18:11] LABS: FREE KAPPA,SERUM 41.3 mg/L (3.3-19.4)
[2018-11-03 05:09] LABS: KAPPA LAMBDA RATIO URIN 5.28 (2.04-10.37)
== END 2018-10-31 12:30 | disposition home or self-care (01) ==
LOC: JONCCHEMO 07:12 → J7W 10:40 → JONCCHEMO 12:30
PROVIDERS: ATTEND Internal Medicine Hematology & Oncology
DX: Z51.11 Encounter for antineoplastic chemotherapy (principal); C90.00 Multiple myeloma not having achieved remission
CPT/HCPCS: 36415; 80048; 80076; 82784; 83615; 83735; 83883; 84550; 85025; 96401; J9041

== ENCOUNTER 2018-11-14 06:52 | Day surgery (SDC) | payer OTHER, BC, MEDICARE ==
[2018-11-14 09:22] LABS: BASO % 0.2 % (0-2.0); EOS % 0.3 % (0-4.5); HEMATOCRIT 35.3 % (32.4-45.2); HEMOGLOBIN 11.6 GM/dL (10.7-15.3); LYMPH % 7.3 % (8-40); MCH 30.6 pg (25.7-33.7); MCHC 32.9 g/dl (32.0-36.0); MEAN CELL VOLUME 92.9 fl (80-96); MEAN PLT VOLUME 8.6 fl (7.5-11.1); MONO % 5.3 % (3.8-10.2); NEUT % 86.9 % (42.8-82.8); PLATELET COUNT 194 K/MM3 (134-434); WHITE BLOOD COUNT 7.2 K/mm3 (4.0-10.0)
[2018-11-14 09:49] LABS: BILIRUBIN,DIRECT 0.2 mg/dL (0.0-0.2); BILIRUBIN,TOTAL 0.4 mg/dL (0.2-1); BLOOD UREA NITROGEN 19.6 mg/dL (7-18); CALCIUM 8.9 mg/dL (8.5-10.1); CREATININE 1.2 mg/dL (0.55-1.3); MAGNESIUM 2.3 mg/dL (1.8-2.4); POTASSIUM 3.7 mmol/L (3.5-5.1); URIC ACID 4.1 mg/dL (2.6-7.2)
[2018-11-14] MEDS ORDERED: BORTEZOMIB (VELCADE) 2.5 MG/ML SUB-Q INJECTION SQ ONE (10:00)
[2018-11-14 11:45] LABS: ANISOCYTOSIS 1+; MACROCYTOSIS 1+; OVALOCYTE 1+; PLATELET ESTIMATE NORMAL; TARGET CELLS 1+
[2018-11-14 17:55] VITALS: BP 137/69; PULSE 49; TEMP 98.2
== END 2018-11-14 12:00 | disposition home or self-care (01) ==
LOC: JONCCHEMO 06:52 → J7W 10:45 → JONCCHEMO 12:00
PROVIDERS: ATTEND Internal Medicine Hematology & Oncology
DX: Z51.11 Encounter for antineoplastic chemotherapy (principal); C90.00 Multiple myeloma not having achieved remission
CPT/HCPCS: 36415; 80048; 80076; 83615; 83735; 84550; 85025; 96401; J9041

== ENCOUNTER 2018-11-28 07:44 | Day surgery (SDC) | payer OTHER, BC, MEDICARE ==
[2018-11-28 09:04] LABS: BASO % 0.1 % (0-2.0); EOS % 0.2 % (0-4.5); HEMATOCRIT 34.7 % (32.4-45.2); HEMOGLOBIN 11.7 GM/dL (10.7-15.3); MCH 31.4 pg (25.7-33.7); MCHC 33.7 g/dl (32.0-36.0); MEAN CELL VOLUME 93.2 fl (80-96); MEAN PLT VOLUME 8.3 fl (7.5-11.1); MONO % 12.9 % (3.8-10.2); NEUT % 77.8 % (42.8-82.8); PLATELET COUNT 163 K/MM3 (134-434); RBC 3.73 M/mm3 (3.60-5.2); RDW 21.8 % (11.6-15.6)
[2018-11-28 09:30] LABS: BILIRUBIN,DIRECT 0.2 mg/dL (0.0-0.2); BILIRUBIN,TOTAL 0.3 mg/dL (0.2-1); BLOOD UREA NITROGEN 17.1 mg/dL (7-18); CALCIUM 9.1 mg/dL (8.5-10.1); CREATININE 1.1 mg/dL (0.55-1.3); MAGNESIUM 2.3 mg/dL (1.8-2.4); POTASSIUM 4.5 mmol/L (3.5-5.1); TOT PROT 6.1 g/dl (6.4-8.2); URIC ACID 4.1 mg/dL (2.6-7.2)
[2018-11-28] MEDS ORDERED: BORTEZOMIB (VELCADE) 2.5 MG/ML SUB-Q INJECTION SQ ONE (10:00)
[2018-11-28 12:04] LABS: ANISOCYTOSIS 1+; MACROCYTOSIS 1+; OVALOCYTE 1+; PLATELET ESTIMATE NORMAL; TEAR DROP CELLS 1+
[2018-11-28 15:27] VITALS: BP 141/62; PULSE 45; TEMP 97.8
== END 2018-11-28 10:55 | disposition home or self-care (01) ==
LOC: JONCCHEMO 07:44 → J7W 09:55 → JONCCHEMO 10:55
PROVIDERS: ATTEND Internal Medicine Hematology & Oncology
DX: Z51.11 Encounter for antineoplastic chemotherapy (principal); C90.00 Multiple myeloma not having achieved remission
CPT/HCPCS: 36415; 80048; 80076; 83615; 83735; 84550; 85025; 96401; J9041

== ENCOUNTER 2018-12-12 07:11 | Day surgery (SDC) | payer OTHER, BC, MEDICARE ==
[2018-12-12 08:38] LABS: BASO % 0.3 % (0-2.0); EOS % 0.3 % (0-4.5); HEMATOCRIT 37.4 % (32.4-45.2); HEMOGLOBIN 12.4 GM/dL (10.7-15.3); LYMPH % 7.7 % (8-40); MCH 31.3 pg (25.7-33.7); MCHC 33.2 g/dl (32.0-36.0); MEAN CELL VOLUME 94.3 fl (80-96); MEAN PLT VOLUME 8.7 fl (7.5-11.1); MONO % 4.7 % (3.8-10.2); PLATELET COUNT 189 K/MM3 (134-434); RBC 3.97 M/mm3 (3.60-5.2); RDW 20.4 % (11.6-15.6); WHITE BLOOD COUNT 7.5 K/mm3 (4.0-10.0)
[2018-12-12 09:10] LABS: ALBUMIN 3.1 g/dl (3.4-5.0); BILIRUBIN,DIRECT 0.2 mg/dL (0.0-0.2); BILIRUBIN,TOTAL 0.4 mg/dL (0.2-1); BLOOD UREA NITROGEN 16.7 mg/dL (7-18); CALCIUM 9.4 mg/dL (8.5-10.1); CREATININE 1.1 mg/dL (0.55-1.3); MAGNESIUM 2.6 mg/dL (1.8-2.4); POTASSIUM 3.6 mmol/L (3.5-5.1); TOT PROT 6.3 g/dl (6.4-8.2); URIC ACID 4.2 mg/dL (2.6-7.2)
[2018-12-12] MEDS ORDERED: BORTEZOMIB (VELCADE) 2.5 MG/ML SUB-Q INJECTION SQ ONE (10:00)
[2018-12-12 16:30] VITALS: BP 138/52; PULSE 47; TEMP 97.6
== END 2018-12-12 10:35 | disposition home or self-care (01) ==
LOC: JONCCHEMO 07:11 → J7W 09:38 → JONCCHEMO 09:55
PROVIDERS: ATTEND Internal Medicine Hematology & Oncology
DX: Z51.11 Encounter for antineoplastic chemotherapy (principal); C90.00 Multiple myeloma not having achieved remission
CPT/HCPCS: 36415; 80048; 80076; 83615; 83735; 84550; 85025; 96401; J9041

== ENCOUNTER 2018-12-26 07:12 | Day surgery (SDC) | payer OTHER, BC, MEDICARE ==
[2018-12-26 08:37] LABS: BASO % 1.1 % (0-2.0); EOS % 1.1 % (0-4.5); HEMATOCRIT 35.8 % (32.4-45.2); HEMOGLOBIN 11.8 GM/dL (10.7-15.3); LYMPH % 10.2 % (8-40); MCH 31.1 pg (25.7-33.7); MEAN CELL VOLUME 94.2 fl (80-96); MEAN PLT VOLUME 8.8 fl (7.5-11.1); NEUT % 73.6 % (42.8-82.8); PLATELET COUNT 180 K/MM3 (134-434); RDW 19.4 % (11.6-15.6); WHITE BLOOD COUNT 5.9 K/mm3 (4.0-10.0)
[2018-12-26 09:06] LABS: ALBUMIN 2.9 g/dl (3.4-5.0); BILIRUBIN,DIRECT 0.1 mg/dL (0.0-0.2); BILIRUBIN,TOTAL 0.3 mg/dL (0.2-1); BLOOD UREA NITROGEN 18.7 mg/dL (7-18); CALCIUM 9.2 mg/dL (8.5-10.1); MAGNESIUM 2.3 mg/dL (1.8-2.4); POTASSIUM 3.6 mmol/L (3.5-5.1); URIC ACID 4.4 mg/dL (2.6-7.2)
[2018-12-26] MEDS ORDERED: BORTEZOMIB (VELCADE) 2.5 MG/ML SUB-Q INJECTION SQ ONE (10:00)
[2018-12-26 16:03] VITALS: BP 139/50; PULSE 48; TEMP 97.5
== END 2018-12-26 10:45 | disposition home or self-care (01) ==
LOC: JONCCHEMO 07:12 → J7W 09:15 → JONCCHEMO 10:45
PROVIDERS: ATTEND Internal Medicine Hematology & Oncology
DX: Z51.11 Encounter for antineoplastic chemotherapy (principal); C90.00 Multiple myeloma not having achieved remission
CPT/HCPCS: 36415; 80048; 80053; 80076; 83615; 83735; 84550; 85025; 96401; J9041

== ENCOUNTER 2019-01-09 06:01 | Day surgery (SDC) | payer OTHER, BC, MEDICARE ==
[2019-01-09 08:46] LABS: BASO % 0.7 % (0-2.0); EOS % 0.2 % (0-4.5); HEMATOCRIT 35.2 % (32.4-45.2); HEMOGLOBIN 11.5 GM/dL (10.7-15.3); MCH 30.5 pg (25.7-33.7); MCHC 32.5 g/dl (32.0-36.0); MEAN CELL VOLUME 93.6 fl (80-96); MEAN PLT VOLUME 8.2 fl (7.5-11.1); MONO % 12.7 % (3.8-10.2); NEUT % 76.4 % (42.8-82.8); PLATELET COUNT 197 K/MM3 (134-434); RBC 3.76 M/mm3 (3.60-5.2); RDW 18.7 % (11.6-15.6); WHITE BLOOD COUNT 8.3 K/mm3 (4.0-10.0)
[2019-01-09 09:46] VITALS: BP 138/54; PULSE 47; TEMP 97.7
[2019-01-09 09:48] LABS: ALBUMIN 2.8 g/dl (3.4-5.0); BILIRUBIN,DIRECT 0.1 mg/dL (0.0-0.2); BILIRUBIN,TOTAL 0.3 mg/dL (0.2-1); BLOOD UREA NITROGEN 18.2 mg/dL (7-18); MAGNESIUM 2.3 mg/dL (1.8-2.4); POTASSIUM 3.7 mmol/L (3.5-5.1); URIC ACID 4.1 mg/dL (2.6-7.2)
[2019-01-09] MEDS ORDERED: BORTEZOMIB (VELCADE) 2.5 MG/ML SUB-Q INJECTION SQ ONE (10:00)
== END 2019-01-09 11:30 | disposition home or self-care (01) ==
LOC: JONCCHEMO 06:01 → J7W 09:23 → JONCCHEMO 11:30
PROVIDERS: ATTEND Internal Medicine Hematology & Oncology
DX: Z51.11 Encounter for antineoplastic chemotherapy (principal); C90.00 Multiple myeloma not having achieved remission
CPT/HCPCS: 36415; 80048; 80076; 83615; 83735; 84550; 85025; 96401; J9041

== ENCOUNTER 2019-01-23 05:33 | Day surgery (SDC) | payer OTHER, BC, MEDICARE ==
[2019-01-23 08:48] LABS: BASO % 0.4 % (0-2.0); HEMATOCRIT 37.7 % (32.4-45.2); HEMOGLOBIN 12.2 GM/dL (10.7-15.3); LYMPH % 9.4 % (8-40); MCH 30.6 pg (25.7-33.7); MCHC 32.5 g/dl (32.0-36.0); MEAN CELL VOLUME 94.3 fl (80-96); NEUT % 72.2 % (42.8-82.8); PLATELET COUNT 235 K/MM3 (134-434); RDW 18.2 % (11.6-15.6); WHITE BLOOD COUNT 7.1 K/mm3 (4.0-10.0)
[2019-01-23 09:18] LABS: ALBUMIN 2.9 g/dl (3.4-5.0); BILIRUBIN,DIRECT 0.1 mg/dL (0.0-0.2); BILIRUBIN,TOTAL 0.4 mg/dL (0.2-1); BLOOD UREA NITROGEN 18.6 mg/dL (7-18); CREATININE 1.2 mg/dL (0.55-1.3); MAGNESIUM 2.5 mg/dL (1.8-2.4); POTASSIUM 4.2 mmol/L (3.5-5.1); TOT PROT 6.4 g/dl (6.4-8.2); URIC ACID 4.9 mg/dL (2.6-7.2)
[2019-01-23] MEDS ORDERED: BORTEZOMIB (VELCADE) 2.5 MG/ML SUB-Q INJECTION SQ ONE (10:00)
[2019-01-23 10:33] LABS: ANISOCYTOSIS 0; MACROCYTOSIS 0; PLATELET ESTIMATE NORMAL
[2019-01-23 10:52] VITALS: BP 125/60; PULSE 51; TEMP 97.6
== END 2019-01-23 11:00 | disposition home or self-care (01) ==
LOC: JONCCHEMO 05:33 → J7W 08:08 → JONCCHEMO 11:00
PROVIDERS: ATTEND Internal Medicine Hematology & Oncology
DX: Z51.11 Encounter for antineoplastic chemotherapy (principal); C90.00 Multiple myeloma not having achieved remission
CPT/HCPCS: 36415; 80048; 80076; 83615; 83735; 84550; 85025; 96401; J9041

== ENCOUNTER 2019-02-06 10:26 | Inpatient (IN) | payer OTHER, BC, MEDICARE ==
[2019-02-06] MEDS ORDERED: morphine CARPU-JECT 4 MG/1 ML DISP.SYRIN IVPUSH ONE (12:04)
--- NOTE | 2019-02-06 12:10 | PDOC ---
History of Present Illness - General Chief Complaint: Pain, Acute Stated Complaint: BLOOD CLOT Time Seen by Provider: 02/06/19 11:31 - History of Present Illness Initial Comments: 02/06/19 12:05 This is an 88 year old female with PMH significant for MM (currently on chemo, sees Dr. Marie) and DM. She presented to the ER with complaints of right calf pain that started suddenly last night. The pain is rated 8-9/10, described as a shooting pain, intermittent in nature with multiple episodes per hour, with each one lasting a few seconds, non-radiating, with no recognized aggravating or alleviating factors. She denies any fevers, chills, SOB, cough, chest pain, palpitations, nausea, vomiting, diarrhea, dysuria, hematuria, or polyuria. She denies any trauma or recent illnesses. Past History - Past Medical History Allergies/Adverse Reactions: Allergies Allergy/AdvReac Type Severity Reaction Status Date / Time No Known Allergies Allergy Verified 03/06/18 10:46 Home Medications: Ambulatory Orders Acetaminophen [Tylenol] 2 tab PO Q8H PRN 10/24/18 Albuterol Sulfate [Proair Hfa] 1 puff IH Q6H PRN 10/24/18 Atorvastatin Ca [Lipitor] 1 tab PO HS 10/24/18 Clotrimazole [Mycelex -] 10 mg PO TID 10/24/18 Dexamethasone 1 tab PO Q72H 10/24/18 Ferrous Sulfate [Feosol] 1 tab PO DAILY 10/24/18 Fluticasone Furoate [Arnuity Ellipta] 2 puff IH DAILY 10/24/18 Gabapentin 1 tab PO TID 10/24/18 Lenalidomide [Revlimid] 1 tab PO DAILY 10/24/18 Levothyroxine [Synthroid -] 88 mcg PO DAILY 10/24/18 Magnesium Oxide [Magnesium] 200 mg PO DAILY 10/24/18 Memantine HCl [Namenda -] 1 tab PO Q12H 10/24/18 Metoprolol Succinate [Toprol Xl] 12.5 mg PO DAILY 10/24/18 Multivitamin [Multiple Vitamins] 1 tab PO DAILY 10/24/18 Pramipexole Di-HCl [Mirapex] 1 tab PO TID 10/24/18 Ranitidine [Zantac -] 150 mg PO BID 10/24/18 Tramadol HCl 1 tab PO Q8H PRN 10/24/18 Valacyclovir HCl [Valtrex -] 1 tab PO DAILY 10/24/18 Lac-Hydrin 12% Cream - 1 applic TD PRN 10/31/18 Warfarin Sodium [Coumadin] 2 mg PO HS 10/31/18 Anemia: No Asthma: No Cancer: Yes (THYROID, MULTIPLE MYELOMA) Cardiac Disorders: Yes (afib/DVT) CVA: No COPD: No CHF: No Dementia: No Diabetes: Yes GI Disorders: No Disorders: No HTN: Yes Hypercholesterolemia: Yes Liver Disease: No Seizures: No Thyroid Disease: Yes (thyroid cancer, thyroidectomy done in 1999) - Surgical History Abdominal Surgery: Yes (exploratory lap) - Immunization History Immunization Up to Date: No - Psycho Social/Smoking Cessation Hx Smoking Status: No Smoking History: Former smoker Have you smoked in the past 12 months: No Number of Cigarettes Smoked Daily: 0 If you are a former smoker, when did you quit?: years ago Information on smoking cessation initiated: No Hx Alcohol Use: No Drug/Substance Use Hx: No Substance Use Type: None Hx Substance Use Treatment: No Review of Systems - Review of Systems Comments:: 02/06/19 12:11 Constitutional: No fevers, chills, weakness [employer]: No headaches, dizziness, visual changes, motor weakness, sensory deficits Respiratory: No SOB, cough, wheezing CVS: No chest pain, palpitations, light headedness GI: No abdominal pain, nausea, vomiting, diarrhea, constipation MARIANA: No dysuria, hematuria, polyruia MSK: Calf pain and tenderness, no joint pain *Physical Exam - Vital Signs Last Vital Signs Temp Pulse Resp BP Pulse Ox 97.4 F L 62 20 140/52 L 98 02/06/19 10:48 02/06/19 10:48 02/06/19 10:48 02/06/19 10:48 02/06/19 10:48 - Physical Exam Comments: 02/06/19 12:15 General: AOx3, responsive, cooperative Oropharynx: Moist oral mucosa, no lesions noted Eyes: Normal sclera, DANY, EOM intact Lungs: B/L Clear Heart: Regular rate, regular rhythm, no murmurs rubs or gallops appreciated Abdomen: Soft, no tenderness, non-distended, normoactive bowel sounds, no rebound tenderness Neuro: Motor 5/5 upper and 4/5 lower extremities B/L, sensations intact B/L, CN II-XII intact, no tremors in hands, arms, legs Extremities: Right leg swollen below the knee, tender to palpation, erythematous , left leg normal ED Treatment Course - LABORATORY CBC & Chemistry Diagram: 02/06/19 12:00 02/06/19 15:35 - RADIOLOGY Radiology Studies Ordered: Category Date Time Status CHEST PA & LAT [RAD] Stat Radiology 02/06/19 12:01 Ordered DUPLEX VASCUL US-1 LEG [US] Stat Ultrasound 02/06/19 12:02 Ordered Medical Decision Making - Medical Decision Making 02/06/19 12:28 - Suspecting DVT due to sudden onset unilateral edema with pain, patient on warfarin so will not start Lovenox - CBC/CMP/PT INR - CXR - EKG - Rt leg US - Morphine 2mg IVPUSH for pain 02/06/19 14:15 - No evidence of DVT on Duplex - Will repeat CMP/PTT, first sample was hemolyzed 02/06/19 16:58 - Will admit and consult vascular for management - Will call jason Mahajan to update. 02/06/19 18:16 - Spoke to jason Mahajan, explained her admission and plan - CXR for admission ordered - Signed out to from ER night team 02/06/19 18:33 - Spoke with grand daughter Brisa , explained her admission and plan Discharge - Discharge Information Problems reviewed: Yes Clinical Impression/Diagnosis: Leg pain, right Multiple myeloma Qualifiers: Multiple myeloma remission status: unspecified Qualified Code(s): C90.00 - Multiple myeloma not having achieved remission - Admission Yes - Follow up/Referral - Patient Discharge Instructions - Post Discharge Activity
[2019-02-06] MEDS ORDERED: MORPHINE SULFATE 2 MG/ML VIAL ONE (12:19)
[2019-02-06 12:56] LABS: BASO % 0.3 % (0-2.0); EOS % 0.7 % (0-4.5); HEMATOCRIT 33.2 % (32.4-45.2); HEMOGLOBIN 11.3 GM/dL (10.7-15.3); LYMPH % 8.8 % (8-40); MCH 31.1 pg (25.7-33.7); MEAN CELL VOLUME 91.6 fl (80-96); MEAN PLT VOLUME 8.7 fl (7.5-11.1); MONO % 14.9 % (3.8-10.2); NEUT % 75.3 % (42.8-82.8); PLATELET COUNT 216 K/MM3 (134-434); RBC 3.62 M/mm3 (3.60-5.2); RDW 18.1 % (11.6-15.6); WHITE BLOOD COUNT 9.1 K/mm3 (4.0-10.0)
[2019-02-06] MEDS ORDERED: GABAPENTIN 300 MG CAPSULE (FP) PO ONE (15:10)
[2019-02-06 15:58] LABS: PROTHROMBIN TIME (PATIENT) 50.6 SEC (9.7-13.0)
[2019-02-06 16:03] LABS: INR 4.23 (0.83-1.09)
[2019-02-06 16:16] LABS: ALBUMIN 2.6 g/dl (3.4-5.0); BILIRUBIN,TOTAL 0.4 mg/dL (0.2-1); BLOOD UREA NITROGEN 22.8 mg/dL (7-18); POTASSIUM 3.3 mmol/L (3.5-5.1); TOT PROT 5.6 g/dl (6.4-8.2)
--- NOTE | 2019-02-06 16:19 | PDOC ---
Documentation entered by Dalton Nelson SCRIBE, acting as scribe for Silvino Alvarado MD. Silvino Alvarado MD: This documentation has been prepared by the Omar yu Daniel, SCRIBE, under my direction and personally reviewed by me in its entirety. I confirm that the documentation accurately reflects all work, treatment, procedures, and medical decision making performed by me. Attending Attestation - Resident Resident Name: [email or web address] - HPI HPI: 02/06/19 12:00 The patient is an 88 year old female with a past medical history of multiple myeloma, diabetes, and chronic right leg wound (follows with Dr. Zaman) here today for evaluation of right lower leg pain. The patient reports that she has had 1 day of below the knee right leg pain that is 8-9/10. She states that her pain comes in episodes that last for a few seconds and happen multiple times per hour. She reports not taking anything for the pain. Patient denies headache, lightheadedness. Denies fever, chills. Denies chest pain, shortness of breath. Denies nausea, vomiting, diarrhea, abdominal pain. Allergies: NKA PCP: Johann Wadsworth - Physicial Exam PE: 02/06/19 16:18 vss + leg edema as noted without evidence of infection, sensation and distal pulses intact - Medical Decision Making 02/06/19 16:18 88y/o F h/o MM, DVT on coumadin with persistent DVT sxs sent by Onc for admission and vascular evaluation. labs repeat doppler vsacular consult and admit 1 Heart Score/ECG Review #1 ECG reviewed & interpreted by me at: 12:25 General ECG Interpretation: Sinus Rhythm, Normal Rate (54), Normal Intervals ( qtc 434, LVH), No acute ischemic changes
--- NOTE | 2019-02-06 20:29 | HP ---
Admitting History and Physical - Primary Care Physician PCP: Tacos Rowe - Admission History of Present Illness: This is an 88 year old woman from [facility] with a past medical history of Multiple Myeloma, Diabetes, chronic Right Leg Wound (follows with Dr. Zaman). Who presents to the ED for evaluation of right lower leg pain and swelling. The patient reports that she has had 1 day of below the knee right leg pain that is 8-9/10. She states that her pain comes in episodes that last for a few seconds and happen multiple times per hour. She reports not taking anything for the pain. Patient denies headache, lightheadedness. Denies fever, chills. Denies chest pain, shortness of breath. Denies nausea, vomiting, diarrhea, abdominal pain. 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 Cardiovascular: Yes: AFIB, Deep Vein Thrombosis, HTN, Hyperlipdemia Gastrointestinal: Yes: GERD Heme/Onc: Yes: Cancer Endocrine: Yes: Diabetes Mellitus - Past Surgical History Past Surgical History: Yes: Hysterectomy - Smoking History Smoking history: Former smoker Have you smoked in the past 12 months: No Aproximately how many cigarettes per day: 0 If you are a former smoker, when did you quit?: years ago - Alcohol/Substance Use Hx Alcohol Use: No History of Substance Use: reports: None - Social History Usual Living Arrangement: Yes: [place]way ADL: Support Services 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 History of Recent Travel: No Home Medications - Allergies Allergies/Adverse Reactions: Allergies Allergy/AdvReac Type Severity Reaction Status Date / Time No Known Allergies Allergy Verified 03/06/18 10:46 - Home Medications Home Medications: Ambulatory Orders Acetaminophen [Tylenol] 2 tab PO Q8H PRN 10/24/18 Albuterol Sulfate [Proair Hfa] 1 puff IH Q6H PRN 10/24/18 Atorvastatin Ca [Lipitor] 1 tab PO HS 10/24/18 Clotrimazole [Mycelex -] 10 mg PO TID 10/24/18 Dexamethasone 1 tab PO Q72H 10/24/18 Ferrous Sulfate [Feosol] 1 tab PO DAILY 10/24/18 Fluticasone Furoate [Arnuity Ellipta] 2 puff IH DAILY 10/24/18 Gabapentin 1 tab PO TID 10/24/18 Lenalidomide [Revlimid] 1 tab PO DAILY 10/24/18 Levothyroxine [Synthroid -] 88 mcg PO DAILY 10/24/18 Magnesium Oxide [Magnesium] 200 mg PO DAILY 10/24/18 Memantine HCl [Namenda -] 1 tab PO Q12H 10/24/18 Metoprolol Succinate [Toprol Xl] 12.5 mg PO DAILY 10/24/18 Multivitamin [Multiple Vitamins] 1 tab PO DAILY 10/24/18 Pramipexole Di-HCl [Mirapex] 1 tab PO TID 10/24/18 Ranitidine [Zantac -] 150 mg PO BID 10/24/18 Tramadol HCl 1 tab PO Q8H PRN 10/24/18 Valacyclovir HCl [Valtrex -] 1 tab PO DAILY 10/24/18 Lac-Hydrin 12% Cream - 1 applic TD PRN 10/31/18 Warfarin Sodium [Coumadin] 2 mg PO HS 10/31/18 Family Medical History Family History: Unable to Obtain Review of Systems - Review of Systems Constitutional: reports: No Symptoms Eyes: reports: No Symptoms HENT: reports: No Symptoms Neck: reports: No Symptoms Cardiovascular: reports: No Symptoms Respiratory: reports: No Symptoms Gastrointestinal: reports: No Symptoms Genitourinary: reports: No Symptoms Breasts: reports: No Symptoms Reported Musculoskeletal: reports: Extremity Pain Integumentary: reports: Erythema, Wound Neurological: reports: No Symptoms Endocrine: reports: No Symptoms Hematology/Lymphatic: reports: No Symptoms Psychiatric: reports: No Symptoms Pain Intensity: 9 Physical Examination Vital Signs: Vital Signs Temperature 97.7 F 02/06/19 19:10 Pulse Rate 55 L 02/06/19 19:10 Respiratory Rate 17 02/06/19 19:10 Blood Pressure 96/46 L 02/06/19 19:10 O2 Sat by Pulse Oximetry (%) 95 02/06/19 19:10 Constitutional: Yes: No Distress, Calm, Thin Eyes: Yes: WNL, Conjunctiva Clear, EOM Intact, PERRL HENT: Yes: Atraumatic, Normocephalic, Other (dry mucosal membranes) Neck: Yes: WNL, Supple, Trachea Midline Cardiovascular: Yes: Bradycardia, S1, S2 Respiratory: Yes: WNL, Regular, CTA Bilaterally Gastrointestinal: Yes: Normal Bowel Sounds, Soft Renal/: Yes: Incontinence Breast(s): Yes: WNL Musculoskeletal: Yes: Joint Swelling Extremities: Yes: Erythema Edema: Yes Edema: RLE: 1+ Peripheral Pulses WNL: Yes Integumentary: Yes: Erythema, Venous Stasis Changes Wound/Incision: Yes: Dressing Removed, Reddened Neurological: Yes: Alert, Confusion, Cran Nerves II-XII Intact ...Motor Strength: WNL Psychiatric: Yes: WNL, Alert Labs: CBC, BMP 02/06/19 12:00 02/06/19 15:35 Laboratory Results - last 24 hr 02/06/19 02/06/19 02/06/19 12:00 12:00 12:16 WBC 9.1 RBC 3.62 Hgb 11.3 Hct 33.2 MCV 91.6 MCH 31.1 MCHC 34.0 RDW 18.1 H Plt Count 216 MPV 8.7 Absolute Neuts (auto) 6.8 Neutrophils % 75.3 Lymphocytes % 8.8 D Monocytes % 14.9 H Eosinophils % 0.7 D Basophils % 0.3 Nucleated RBC % 0 PT with INR Cancelled INR Cancelled PTT (Actin FS) Sodium Cancelled Potassium Cancelled Chloride Cancelled Carbon Dioxide Cancelled Anion Gap Cancelled BUN Cancelled Creatinine Cancelled Est GFR (CKD-EPI)AfAm Cancelled Est GFR (CKD-EPI)NonAf Cancelled Random Glucose Cancelled Calcium Cancelled Total Bilirubin Cancelled AST Cancelled ALT Cancelled Alkaline Phosphatase Cancelled Total Protein Cancelled Albumin Cancelled 02/06/19 02/06/19 02/06/19 15:35 15:35 15:35 WBC RBC Hgb Hct MCV MCH MCHC RDW Plt Count MPV Absolute Neuts (auto) Neutrophils % Lymphocytes % Monocytes % Eosinophils % Basophils % Nucleated RBC % PT with INR 50.60 H INR 4.23 H* PTT (Actin FS) 49.8 H Sodium 143 Potassium 3.3 L Chloride 105 Carbon Dioxide 29 Anion Gap 9 BUN 22.8 H Creatinine 1.0 Est GFR (CKD-EPI)AfAm 59.08 Est GFR (CKD-EPI)NonAf 50.97 Random Glucose 94 Calcium 8.0 L Total Bilirubin 0.4 AST 26 ALT 44 Alkaline Phosphatase 52 Total Protein 5.6 L Albumin 2.6 L Intake & Output 02/04/19 02/05/19 02/06/19 02/07/19 23:59 23:59 23:59 23:59 Weight 68.039 kg 63.503 kg Current Medications Generic Name Dose Route Start Last Admin Trade Name Terence PRN Reason Stop Dose Admin Ferrous Sulfate 325 mg 02/07/19 10:00 Feosol - PO DAILY GIRISH Levothyroxine Sodium 88 mcg 02/07/19 07:00 02/07/19 06:17 Synthroid - PO 88 mcg DAILY@0700 GIR[facility] Administration Memantine 5 mg 02/07/19 10:00 Namenda - PO BID GIR[facility] Metoprolol Succinate 12.5 mg 02/07/19 10:00 Toprol Xl - PO DAILY GIR[facility] Mometasone Furoate 1 puff 02/07/19 22:00 Asmanex 220mcg - IH HS [facility] Multivitamins/Minerals/Vitamin C 1 tab 02/07/19 10:00 Tab-A-Vit - PO DAILY GIR[facility] Pramipexole Dihydrochloride 0.25 mg 02/07/19 06:00 02/07/19 06:18 Mirapex - PO 0.25 mg TID GIRISH Administration Ranitidine HCl 150 mg 02/07/19 10:00 Zantac - PO BID G[facility] Imaging - Results Chest X-ray: Image Reviewed Ultrasound: Report Reviewed, Image Reviewed Problem List - Problems (1) Leg pain, right Code(s): M79.604 - PAIN IN RIGHT LEG (2) Wound of right lower extremity Code(s): S81.801A - UNSPECIFIED OPEN WOUND, RIGHT LOWER LEG, INITIAL ENCOUNTER (3) Type 2 diabetes mellitus with other skin ulcer Code(s): E11.622 - TYPE 2 DIABETES MELLITUS WITH OTHER SKIN ULCER; L98.499 - NON -PRESSURE CHRONIC ULCER OF SKIN OF SITES W UNSP SEVERITY (4) Venous stasis ulcer Code(s): I83.009 - VARICOSE VEINS OF UNSP LOWER EXTREMITY W ULCER OF UNSP SITE; L97.909 - NON-PRS CHRONIC ULC UNSP PRT OF UNSP LOW LEG W UNSP SEVERITY (5) Supratherapeutic INR Code(s): R79.1 - ABNORMAL COAGULATION PROFILE (6) Multiple myeloma Code(s): C90.00 - MULTIPLE MYELOMA NOT HAVING ACHIEVED REMISSION Qualifiers: Multiple myeloma remission status: unspecified Qualified Code(s): C90.00 - Multiple myeloma not having achieved remission (7) Afib Code(s): I48.91 - UNSPECIFIED ATRIAL FIBRILLATION (8) Anemia Code(s): D64.9 - ANEMIA, UNSPECIFIED Qualifiers: Anemia type: B12 deficiency 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 (9) HTN (hypertension) Code(s): I10 - ESSENTIAL (PRIMARY) HYPERTENSION (10) Hypothyroidism Code(s): E03.9 - HYPOTHYROIDISM, UNSPECIFIED Assessment/Plan This is a 88 y/o woman with a PMHx of Multiple Myeloma, Diabetes, chronic Right Leg Wound (follows with Dr. Zaman). Who presents to the ED for evaluation of right lower leg pain and swelling. Admitted for Right Lower Extremity Pain, Non- Pressure Ulcer of RLE for further evaluation of their emergent condition. Plan: Admit Vascular Wound vs DVT Appreciate Vascular consult- wound care Appreciate Oncology consult- MM Wells Score 2 Duplex of RLE- neg DVT Consider ID if no improvement Elevate extremity Tylenol prn Neurovascular checks Monitor CBC, BMP Daily INRs BGMs ISS Continue home meds FEN- PO fluids as tolerated, Replete lytes prn, Low Na, Diabetic Diet DVT ppx- OOB, SCD-L- leg only, Continue Coumadin when INR (2-3), held tonight 2/ 2 Supratherapuetic level Dispo: Requires Inpatient Care Visit type - Emergency Visit Emergency Visit: Yes ED Registration Date: 02/06/19 Care time: The patient presented to the Emergency Department on the above date and was hospitalized for further evaluation of their emergent condition. - New Patient This patient is new to me today: Yes Date on this admission: 02/06/19 - Critical Care Critical Care patient: No
[2019-02-07 01:40] VITALS: BMI 21.9
[2019-02-07] MEDS: PRAMIPEXOLE DIHYDROCHLORIDE 0.25 MG TABLET PO SCH ×3 (06:18→21:16)
[2019-02-07] MEDS ORDERED: LEVOTHYROXINE NA 88 MCG TABLET (FP) PO SCH (07:00)
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
--- NOTE | 2019-02-07 08:57 | PN ---
Progress Note, Physician - Current Medication List Current Medications: Active Medications Ferrous Sulfate (Feosol -) 325 mg PO DAILY [facility] Levothyroxine Sodium (Synthroid -) 88 mcg PO DAILY@0700 [facility] Last Admin: 02/07/19 06:17 Dose: 88 mcg Memantine (Namenda -) 5 mg PO BID [facility] Metoprolol Succinate (Toprol Xl -) 12.5 mg PO DAILY [facility] Mometasone Furoate (Asmanex 220mcg -) 1 puff IH HS [facility] Multivitamins/Minerals/Vitamin C (Tab-A-Vit -) 1 tab PO DAILY [facility] Pramipexole Dihydrochloride (Mirapex -) 0.25 mg PO TID [facility] Last Admin: 02/07/19 06:18 Dose: 0.25 mg Ranitidine HCl (Zantac -) 150 mg PO BID [facility] - Objective Vital Signs: Vital Signs Temperature 98 F 02/07/19 01:34 Pulse Rate 64 02/07/19 01:34 Respiratory Rate 20 02/07/19 01:57 Blood Pressure 103/54 L 02/07/19 01:34 O2 Sat by Pulse Oximetry (%) 98 02/07/19 01:57 Cardiovascular: Yes: S1, S2 Respiratory: Yes: Regular, CTA Bilaterally Gastrointestinal: Yes: Normal Bowel Sounds, Soft Musculoskeletal: No: Joint Stiffness Extremities: No: Calf Tenderness Edema: No Wound/Incision: Yes: Dressing Removed, Excoriated Neurological: Yes: Alert Labs: CBC, BMP 02/06/19 12:00 02/06/19 15:35 INR, PTT INR 4.23 (0.83-1.09) H* 02/06/19 15:35 Problem List - Problems (1) Leg pain, right Assessment/Plan: DRESSING CHANGES WOUND CARE CONSULT ID CONSULT Duplex of RLE- neg DVT Elevate extremity Tylenol prn Neurovascular checks Monitor CBC, BMP Code(s): M79.604 - PAIN IN RIGHT LEG (2) Multiple myeloma Assessment/Plan: ONC FOLLOW UP Code(s): C90.00 - MULTIPLE MYELOMA NOT HAVING ACHIEVED REMISSION Qualifiers: Multiple myeloma remission status: unspecified Qualified Code(s): C90.00 - Multiple myeloma not having achieved remission (3) Afib Assessment/Plan: Daily INRs Continue Coumadin when INR (2-3), held 2/2 Supratherapuetic level Code(s): I48.91 - UNSPECIFIED ATRIAL FIBRILLATION (4) Wound of right lower extremity Assessment/Plan: ABOVE Code(s): S81.801A - UNSPECIFIED OPEN WOUND, RIGHT LOWER LEG, INITIAL ENCOUNTER
[2019-02-07] MEDS: RANITIDINE HCL 150 MG TABLET (FP) PO SCH ×2 (10:37→21:16)
[2019-02-07] MEDS: MEMANTINE HCL 5 MG TABLET (UD) PO SCH ×2 (10:37→21:16)
[2019-02-07] MEDS: FERROUS SO4 325 MG TABLET (FP) PO SCH (10:37)
[2019-02-07] MEDS: MULTIVITAMINS (DAILY MVI) TABLET (FP) PO SCH (10:37)
[2019-02-07] MEDS: metoPROLOL SUCCINATE 25 MG TAB.SR.24H (FP) PO SCH (10:40)
--- NOTE | 2019-02-07 11:03 | EKG ---
Test Reason : Blood Pressure : / mmHG Vent. Rate : 054 BPM Atrial Rate : 054 BPM P-R Int : 124 ms QRS Dur : 086 ms QT Int : 458 ms P-R-T Axes : -28 -02 025 degrees QTc Int : 434 ms POOR DATA QUALITY, INTERPRETATION MAY BE ADVERSELY AFFECTED SINUS BRADYCARDIA WITH PREMATURE ATRIAL COMPLEXES VOLTAGE CRITERIA FOR LEFT VENTRICULAR HYPERTROPHY ABNORMAL ECG WHEN COMPARED WITH ECG OF 11-MAR-2018 12:12, PREMATURE VENTRICULAR COMPLEXES ARE NO LONGER PRESENT PREMATURE ATRIAL COMPLEXES ARE NOW PRESENT T WAVE AMPLITUDE HAS INCREASED IN LATERAL LEADS Confirmed by GENEVA GUERRERO, LINDA ([id number]) on 02/07/2019 11:02:55 AM Referred By: Confirmed By:LINDA BEAN MD
[2019-02-07 12:46] LABS: BASO % 1.2 % (0-2.0); EOS % 5.4 % (0-4.5); HEMATOCRIT 33.3 % (32.4-45.2); HEMOGLOBIN 10.7 GM/dL (10.7-15.3); LYMPH % 6.6 % (8-40); MCH 30.2 pg (25.7-33.7); MCHC 32.2 g/dl (32.0-36.0); MEAN CELL VOLUME 93.8 fl (80-96); MEAN PLT VOLUME 8.5 fl (7.5-11.1); MONO % 14.4 % (3.8-10.2); NEUT % 72.4 % (42.8-82.8); PLATELET COUNT 171 K/MM3 (134-434); RBC 3.55 M/mm3 (3.60-5.2); RDW 18.3 % (11.6-15.6); WHITE BLOOD COUNT 5.4 K/mm3 (4.0-10.0)
[2019-02-07 13:11] LABS: INR 3.36 (0.83-1.09); PROTHROMBIN TIME (PATIENT) 40.1 SEC (9.7-13.0)
[2019-02-07 13:22] LABS: ALBUMIN 2.4 g/dl (3.4-5.0); BILIRUBIN,TOTAL 0.4 mg/dL (0.2-1); CALCIUM 8.3 mg/dL (8.5-10.1); POTASSIUM 3.5 mmol/L (3.5-5.1); TOT PROT 5.3 g/dl (6.4-8.2)
--- NOTE | 2019-02-07 15:41 | CONSULT ---
Consult Consult Specialty:: Hematology and Oncology Referred by:: Jamia Jimenez Reason for Consultation:: h/o multiple myeloma - History of Present Illness Chief Complaint: Right lower extremity pain and swelling History of Present Illness: The patient is an 88 yo f w/ PMH Multiple Myeloma, Diabetes, Chronic right leg wound, DVT on coumadin who was BIBEMS from [facility] for worsening RLE pain and swelling. Patient is a poor historian and the following history was obtained from the medical record. She came into the ED c/o pain in her right leg stretching from just below the knee to the toes. The pain was described as being 8-9/10 in intensity and intermittent, with episodes happening multiple times per hour. Doppler of the RLE was negative for DVT. Her INR was found to be supratheraputic a 4. On interview, the patient was found sitting in bed in NAD. She denies pain. Patient was A&O x3, but was unsure of where she came from or the reason why she came into the hospital. The patient states that the wound on her right leg has gotten "slightly larger". She endorses following in the wound care clinic for this wound. 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 Cardio/Vascular: Yes: AFIB, Deep Vein Thrombosis, HTN, Hyperlipdemia Gastrointestinal: Yes: GERD Heme/Onc: Yes: Myeloproliferative Synd (multiple myeloma) Endocrine: Yes: Diabetes Mellitus Additional Medical History: chronic leg wound RLE - Past Surgical History Past Surgical History: Yes: Hysterectomy - Alcohol/Substance Use Hx Alcohol Use: No History of Substance Use: reports: None - Smoking History Smoking history: Former smoker Have you smoked in the past 12 months: No Aproximately how many cigarettes per day: 0 If you are a former smoker, when did you quit?: years ago - Social History Usual Living Arrangement: Assisted Living ADL: Support Services 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 History of Recent Travel: No Home Medications - Allergies Allergies/Adverse Reactions: Allergies Allergy/AdvReac Type Severity Reaction Status Date / Time No Known Allergies Allergy Verified 03/06/18 10:46 - Home Medications Home Medications: Ambulatory Orders Acetaminophen [Tylenol] 2 tab PO Q8H PRN 10/24/18 Albuterol Sulfate [Proair Hfa] 1 puff IH Q6H PRN 10/24/18 Atorvastatin Ca [Lipitor] 1 tab PO HS 10/24/18 Clotrimazole [Mycelex -] 10 mg PO TID 10/24/18 Dexamethasone 1 tab PO Q72H 10/24/18 Ferrous Sulfate [Feosol] 1 tab PO DAILY 10/24/18 Fluticasone Furoate [Arnuity Ellipta] 2 puff IH DAILY 10/24/18 Gabapentin 1 tab PO TID 10/24/18 Lenalidomide [Revlimid] 1 tab PO DAILY 10/24/18 Levothyroxine [Synthroid -] 88 mcg PO DAILY 10/24/18 Magnesium Oxide [Magnesium] 200 mg PO DAILY 10/24/18 Memantine HCl [Namenda -] 1 tab PO Q12H 10/24/18 Metoprolol Succinate [Toprol Xl] 12.5 mg PO DAILY 10/24/18 Multivitamin [Multiple Vitamins] 1 tab PO DAILY 10/24/18 Pramipexole Di-HCl [Mirapex] 1 tab PO TID 10/24/18 Ranitidine [Zantac -] 150 mg PO BID 10/24/18 Tramadol HCl 1 tab PO Q8H PRN 10/24/18 Valacyclovir HCl [Valtrex -] 1 tab PO DAILY 10/24/18 Lac-Hydrin 12% Cream - 1 applic TD PRN 10/31/18 Warfarin Sodium [Coumadin] 2 mg PO HS 10/31/18 Review of Systems - Review of Systems Constitutional: denies: Chills, Diaphoresis, Fever Cardiovascular: denies: Chest Pain, Shortness of Breath Integumentary: reports: Lesions (RLE wound) Neurological: denies: Numbness Hematology/Lymphatic: denies: Easily Bruised, Excessive Bleeding Physical Exam Vital Signs: Vital Signs Temperature 99.8 F H 02/07/19 15:02 Pulse Rate 57 L 02/07/19 15:02 Respiratory Rate 20 02/07/19 15:02 Blood Pressure 117/55 L 02/07/19 15:02 O2 Sat by Pulse Oximetry (%) 98 02/07/19 09:00 Constitutional: Yes: Well Nourished, No Distress, Calm HENT: Yes: Atraumatic, Normocephalic Cardiovascular: Yes: Regular Rate and Rhythm, S1, S2. No: Gallop, Murmur, Rub Respiratory: Yes: Regular, CTA Bilaterally Gastrointestinal: Yes: Normal Bowel Sounds, Soft. No: Distention, Tenderness Edema: No Wound/Incision: Yes: Dressing Dry and Intact Neurological: Yes: Alert, Oriented, Cran Nerves II-XII Intact Psychiatric: Yes: Alert, Oriented Labs: CBC, BMP 02/07/19 12:16 02/07/19 12:16 Assessment/Plan The patient is an 88 yo f w/ PMH Multiple Myeloma, Diabetes, Chronic right leg wound, DVT on coumadin who was BIBEMS from [facility] for worsening RLE pain and swelling. #RLE pain and swelling likely 2/2 worsening diabetic foot wound vs vascular cause -Vascular surgery consult for both PAD and wound care -RLE Doppler ruled out DVT -no objecive evidence to support PE at this time. #Multiple myeloma -currently being treated as outpatient -continue current management -Monitor CBC for acute changes -holding AC while patient supratheraputic #Supratheraputic INR -Holding coumadin for now -daily INRs
--- NOTE | 2019-02-07 16:19 | CONSULT ---
- Consultation REQUESTING PROVIDER: CONSULT REQUEST: We have been asked to surgically evaluate this patient for rle ulcer. PCP:Tacos Rowe HISTORY OF PRESENT ILLNESS: 88 yo f w/ PMH Multiple Myeloma, Diabetes, venous stasis with Chronic right leg wound, DVT on coumadin who was BIBEMS from [facility] for worsening RLE pain and swelling. Patient is a poor historian and the following history was obtained from the medical record. Per EMR pt with c/o rle. Pt known to Dr Zaman, followed in wound care, last note in EMR from September. Pt being treated with Calcium alginate. PMHx: as above Home Medications Medication Instructions Recorded Acetaminophen [Tylenol] 2 tab PO Q8H PRN 10/24/18 Albuterol Sulfate [Proair Hfa] 1 puff IH Q6H PRN 10/24/18 Atorvastatin Ca [Lipitor] 1 tab PO HS 10/24/18 Clotrimazole [Mycelex -] 10 mg PO TID 10/24/18 Dexamethasone 1 tab PO Q72H 10/24/18 Ferrous Sulfate [Feosol] 1 tab PO DAILY 10/24/18 Fluticasone Furoate [Arnuity 2 puff IH DAILY 10/24/18 Ellipta] Gabapentin 1 tab PO TID 10/24/18 Lenalidomide [Revlimid] 1 tab PO DAILY 10/24/18 Levothyroxine [Synthroid -] 88 mcg PO DAILY 10/24/18 Magnesium Oxide [Magnesium] 200 mg PO DAILY 10/24/18 Memantine HCl [Namenda -] 1 tab PO Q12H 10/24/18 Metoprolol Succinate [Toprol Xl] 12.5 mg PO DAILY 10/24/18 Multivitamin [Multiple Vitamins] 1 tab PO DAILY 10/24/18 Pramipexole Di-HCl [Mirapex] 1 tab PO TID 10/24/18 Ranitidine [Zantac -] 150 mg PO BID 10/24/18 Tramadol HCl 1 tab PO Q8H PRN 10/24/18 Valacyclovir HCl [Valtrex -] 1 tab PO DAILY 10/24/18 Lac-Hydrin 12% Cream - 1 applic TD PRN 10/31/18 Warfarin Sodium [Coumadin] 2 mg PO HS 10/31/18 Allergies Allergy/AdvReac Type Severity Reaction Status Date / Time No Known Allergies Allergy Verified 03/06/18 10:46 REVIEW OF SYSTEMS: Unable to obtain due to pts h/o dementia and noncompliance with questioning PHYSICAL EXAM: GENERAL: Awake, alert, in no acute distress. refusing to answer most questions HEAD: Normal with no signs of trauma. LOWER EXTREMITIES: RLE with approx [id number] wound over medial malleolus. Mild- moderate slough, no surrounding erythema noted. No foul odor. Surrounding skin with hyperpigmentation. Pt declined examination of pulses statin "do not touch me"! Vital Signs Temperature 99.8 F H 02/07/19 15:02 Pulse Rate 57 L 02/07/19 15:02 Respiratory Rate 20 02/07/19 15:02 Blood Pressure 117/55 L 02/07/19 15:02 O2 Sat by Pulse Oximetry (%) 98 02/07/19 09:00 Lab Results WBC 5.4 K/mm3 (4.0-10.0) 02/07/19 12:16 RBC 3.55 M/mm3 (3.60-5.2) L 02/07/19 12:16 Hgb 10.7 GM/dL (10.7-15.3) 02/07/19 12:16 Hct 33.3 % (32.4-45.2) 02/07/19 12:16 MCV 93.8 fl (80-96) 02/07/19 12:16 MCHC 32.2 g/dl (32.0-36.0) 02/07/19 12:16 RDW 18.3 % (11.6-15.6) H 02/07/19 12:16 Plt Count 171 K/MM3 (134-434) D 02/07/19 12:16 Sodium 144 mmol/L (136-145) 02/07/19 12:16 Potassium 3.5 mmol/L (3.5-5.1) 02/07/19 12:16 Chloride 108 mmol/L (98-107) H 02/07/19 12:16 Carbon Dioxide 27 mmol/L (21-32) 02/07/19 12:16 Anion Gap 9 MMOL/L (8-16) 02/07/19 12:16 BUN 20.0 mg/dL (7-18) H 02/07/19 12:16 Creatinine 1.0 mg/dL (0.55-1.3) 02/07/19 12:16 Random Glucose 102 mg/dL (74-106) 02/07/19 12:16 Calcium 8.3 mg/dL (8.5-10.1) L 02/07/19 12:16 INR 3.36 (0.83-1.09) H 02/07/19 12:16 Duplex (02/06/19): No rle dvt visualized. 88 yo f w/ PMH Multiple Myeloma, Diabetes, venous stasis with Chronic right leg wound, DVT on coumadin who was BIBEMS from [facility] for worsening RLE pain and swelling. Vascular consulted for evaluation. Pt noncompliant with questioning and examination. Able to visualize wound which does not look clinically infected. -Recommend santyl to rle wound, cover with damp to dry and kerlix. Change daily -le elevation while at rest -Pt should f/u in wound care at her next scheduled appointment d/w attending Dr Zaman
--- NOTE | 2019-02-07 16:21 | PN ---
Progress Note (short form) - Note Progress Note: ID consult dictated 88 [place] with multiple myeloma and chronic leg ulcer Asked to evaluate her leg ulcer-it is painful it is clean, no erythema or drainage no need for iv antibioitcs at this time wound care per surgery Problem List - Problems (1) Venous stasis ulcer Code(s): I83.009 - VARICOSE VEINS OF UNSP LOWER EXTREMITY W ULCER OF UNSP SITE; L97.909 - NON-PRS CHRONIC ULC UNSP PRT OF UNSP LOW LEG W UNSP SEVERITY (2) Multiple myeloma Code(s): C90.00 - MULTIPLE MYELOMA NOT HAVING ACHIEVED REMISSION Qualifiers: Multiple myeloma remission status: unspecified Qualified Code(s): C90.00 - Multiple myeloma not having achieved remission
[2019-02-07] MEDS: COLLAGENASE CLOSTRIDIUM HIST. 30 GRAMS TUBE TP SCH (17:13)
--- NOTE | 2019-02-07 18:20 | CONS ---
INFECTIOUS DISEASE CONSULTATION DATE OF CONSULTATION: DATE OF DICTATION: 02/07/2019 REQUESTING PHYSICIAN: Tacos Rowe MD This is an 88-year-old woman who resides at the half-way. She has a past medical history of multiple myeloma, dementia. She has a chronic right leg wound. She is followed by Dr. Zaman at wound care. She has had this wound for at least a year if not longer, who was sent for apparently swelling of the right leg. She denies any fevers or chills. She thinks she is at the assisted living center. She is aware that she is followed by Dr. Marie. She states she feels well. She has chronic pain in the foot ulcer and even in her other foot that has no ulcer. PAST MEDICAL HISTORY: Notable for dementia, vertigo, atrial fibrillation, hypertension, hyperlipidemia, GERD. She has a history of multiple myeloma; diabetes; chronic leg wound, right lower extremity. SURGICAL HISTORY: Notable for thyroidectomy and exploratory laparotomy. ALLERGIES: She has no known drug allergies. SOCIAL HISTORY: She currently resides at the half-way. REVIEW OF SYSTEMS: Unremarkable. MEDICATIONS: Her current medications include warfarin, Valtrex, tramadol, Zantac, Mirapex, vitamins, Toprol-XL, Namenda, magnesium, Synthroid, Revlimid, Lac-Hydrin, gabapentin, Feosol, Mycelex, Lipitor, ProAir, and Tylenol. REVIEW OF SYSTEMS: Negative. PHYSICAL EXAMINATION: General: She is awake and alert. She is oriented to name and age. She is able to tell me she is 88. She thinks she is at an assisted living center. Vital Signs: Temperature is 98.5. Pulse is 67. Blood pressure 118/55. Respiratory rate of 20. She is saturating 98%. HEENT: She is normocephalic. Her eyes are anicteric. Neck: Supple. Lungs: Clear to auscultation. Heart: Regular rate and rhythm. Abdomen: Soft. Extremities: Notable for a shallow ulcer on her right leg. There is no purulence or associated erythema. The right leg is larger than her left. She had duplex of her right leg done in the emergency room; that was negative for DVT. As well, she had a chest x-ray done that showed no acute chest pathology. Labs were notable for white count of 5.4, platelets of 171. She has an ANC of 3.9. Chemistries: BUN is 20 and creatinine 1 with normal LFTs. In summary, this is an 88-year-old woman with myeloma and a chronic leg ulcer. I am asked to evaluate her ulcer which appears to be chronically painful. I remember this as well from her admission last year. It is clean. There is no erythema or drainage. There is no need for IV antibiotics at this time. Would continue wound care per Surgery. I contacted Dr. Zaman as well to discuss the patient. ARELY JUNG M.D. [id number]
--- NOTE | 2019-02-07 20:36 | PN ---
Teaching Attending Note Name of Resident: Kun Mi ATTENDING PHYSICIAN STATEMENT I saw and evaluated the patient. I reviewed the resident's note and discussed the case with the resident. I agree with the resident's findings and plan as documented. ASSESSMENT AND PLAN: 88 yo f w/ PMH Multiple Myeloma, Diabetes, Chronic right leg wound, DVT on coumadin who was BIBEMS from [facility] for worsening RLE pain and swelling. #RLE pain and swelling likely 2/2 worsening neuropathy ? arterial insufficiency. ruled out DVT MMyeloma therapy on hold check cultures given delirium/dementia, RLE wound consider ID/neuro consults
[2019-02-07] MEDS: MOMETASONE FUROATE 220 MCG/IH INHALER IH SCH ×2 (21:17→22:28)
--- NOTE | 2019-02-07 23:20 | CONSULT ---
Consult Consult Specialty:: endocrine Referred by:: [email or web address] weeks Reason for Consultation:: hypothyroidism/sp total thyroidectomy - History of Present Illness Chief Complaint: weak,easily fatigued History of Present Illness: 88 year old woman from [facility] past medical history of Hypothyrodism,sp tot thyroidectomy,thyroid neoplasm.Multiple Myeloma, Diabetes, chronic Right Leg Wound (follows with Dr. Zaman). Who presents to the ED for evaluation of right lower leg pain and swelling. has been weak unable to ambulate,mobility restricted,cold dry skin,constipation. - Past Medical History DATA COLLECTION SPECIALIST: Yes: Dementia, Vertigo Cardio/Vascular: Yes: AFIB, Deep Vein Thrombosis, HTN, Hyperlipdemia Gastrointestinal: Yes: GERD Endocrine: Yes: Diabetes Mellitus Additional Medical History: chronic leg wound RLE - Past Surgical History Past Surgical History: Yes: Hysterectomy - Alcohol/Substance Use Hx Alcohol Use: No History of Substance Use: reports: None - Smoking History Smoking history: Former smoker Have you smoked in the past 12 months: No Aproximately how many cigarettes per day: 0 If you are a former smoker, when did you quit?: years ago - Social History Usual Living Arrangement: Assisted Living ADL: Support Services 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 History of Recent Travel: No Home Medications - Allergies Allergies/Adverse Reactions: Allergies Allergy/AdvReac Type Severity Reaction Status Date / Time No Known Allergies Allergy Verified 03/06/18 10:46 - Home Medications Home Medications: Ambulatory Orders Acetaminophen [Tylenol] 2 tab PO Q8H PRN 10/24/18 Albuterol Sulfate [Proair Hfa] 1 puff IH Q6H PRN 10/24/18 Atorvastatin Ca [Lipitor] 1 tab PO HS 10/24/18 Clotrimazole [Mycelex -] 10 mg PO TID 10/24/18 Dexamethasone 1 tab PO Q72H 10/24/18 Ferrous Sulfate [Feosol] 1 tab PO DAILY 10/24/18 Fluticasone Furoate [Arnuity Ellipta] 2 puff IH DAILY 10/24/18 Gabapentin 1 tab PO TID 10/24/18 Lenalidomide [Revlimid] 1 tab PO DAILY 10/24/18 Levothyroxine [Synthroid -] 88 mcg PO DAILY 10/24/18 Magnesium Oxide [Magnesium] 200 mg PO DAILY 10/24/18 Memantine HCl [Namenda -] 1 tab PO Q12H 10/24/18 Metoprolol Succinate [Toprol Xl] 12.5 mg PO DAILY 10/24/18 Multivitamin [Multiple Vitamins] 1 tab PO DAILY 10/24/18 Pramipexole Di-HCl [Mirapex] 1 tab PO TID 10/24/18 Ranitidine [Zantac -] 150 mg PO BID 10/24/18 Tramadol HCl 1 tab PO Q8H PRN 10/24/18 Valacyclovir HCl [Valtrex -] 1 tab PO DAILY 10/24/18 Lac-Hydrin 12% Cream - 1 applic TD PRN 10/31/18 Warfarin Sodium [Coumadin] 2 mg PO HS 10/31/18 Review of Systems - Review of Systems Constitutional: reports: Lethargy, Malaise Eyes: reports: No Symptoms HENT: reports: No Symptoms Neck: reports: No Symptoms Respiratory: reports: Exercise Intolerance, SOB Gastrointestinal: reports: Bloating, Nausea Genitourinary: reports: No Symptoms Breasts: reports: No Symptoms Reported Musculoskeletal: reports: Joint Swelling, Muscle Pain, Muscle Cramps, Muscle Weakness Endocrine: reports: Unexplained Weight Loss Physical Exam Vital Signs: Vital Signs Temperature 99.8 F H 02/07/19 15:02 Pulse Rate 57 L 02/07/19 15:02 Respiratory Rate 20 02/07/19 15:02 Blood Pressure 117/55 L 02/07/19 15:02 O2 Sat by Pulse Oximetry (%) 98 02/07/19 09:00 Constitutional: Yes: Calm Eyes: Yes: EOM Intact HENT: Yes: Normocephalic Neck: Yes: Trachea Midline Cardiovascular: Yes: Regular Rate and Rhythm Respiratory: Yes: CTA Bilaterally Gastrointestinal: Yes: Normal Bowel Sounds ...Rectal Exam: Yes: Deferred Renal/: Yes: WNL Musculoskeletal: Yes: Muscle Pain, Muscle Weakness Edema: Yes Edema: RUE: 2+, LLE: 2+ Wound/Incision: Yes: Dressing Dry and Intact Psychiatric: Yes: Alert, Oriented Labs: CBC, BMP 02/07/19 12:16 02/07/19 12:16 Problem List - Problems (1) Acquired hypothyroidism Problems reviewed: Yes Code(s): E03.9 - HYPOTHYROIDISM, UNSPECIFIED (2) Leg pain, right Problems reviewed: Yes Code(s): M79.604 - PAIN IN RIGHT LEG (3) Multiple myeloma Problems reviewed: Yes Code(s): C90.00 - MULTIPLE MYELOMA NOT HAVING ACHIEVED REMISSION Qualifiers: Multiple myeloma remission status: unspecified Qualified Code(s): C90.00 - Multiple myeloma not having achieved remission (4) Afib Problems reviewed: Yes Code(s): I48.91 - UNSPECIFIED ATRIAL FIBRILLATION (5) Bradycardia Code(s): R00.1 - BRADYCARDIA, UNSPECIFIED (6) CHF (congestive heart failure) Code(s): I50.9 - HEART FAILURE, UNSPECIFIED Assessment/Plan Current Active Problems Acquired hypothyroidism (Acute) Leg pain, right (Acute) Multiple myeloma (Acute) Abnormal Lab Results 02/07/19 02/07/19 02/07/19 12:16 12:16 12:16 RBC 3.55 L RDW 18.3 H Lymphocytes % 6.6 L D Monocytes % 14.4 H Eosinophils % 5.4 H D PT with INR 40.10 H INR 3.36 H Chloride 108 H BUN 20.0 H Calcium 8.3 L Total Protein 5.3 L Albumin 2.4 L TSH 4.89 H Laboratory Results - last 24 hr 02/07/19 02/07/19 02/07/19 06:16 12:16 12:16 WBC 5.4 RBC 3.55 L Hgb 10.7 Hct 33.3 MCV 93.8 MCH 30.2 MCHC 32.2 RDW 18.3 H Plt Count 171 D MPV 8.5 Absolute Neuts (auto) 3.9 Neutrophils % 72.4 Lymphocytes % 6.6 L D Monocytes % 14.4 H Eosinophils % 5.4 H D Basophils % 1.2 D Nucleated RBC % 0 PT with INR 40.10 H INR 3.36 H Sodium Potassium Chloride Carbon Dioxide Anion Gap BUN Creatinine Est GFR (CKD-EPI)AfAm Est GFR (CKD-EPI)NonAf POC Glucometer 70 Random Glucose Calcium Total Bilirubin AST ALT Alkaline Phosphatase Total Protein Albumin TSH 02/07/19 12:16 WBC RBC Hgb Hct MCV MCH MCHC RDW Plt Count MPV Absolute Neuts (auto) Neutrophils % Lymphocytes % Monocytes % Eosinophils % Basophils % Nucleated RBC % PT with INR INR Sodium 144 Potassium 3.5 Chloride 108 H Carbon Dioxide 27 Anion Gap 9 BUN 20.0 H Creatinine 1.0 Est GFR (CKD-EPI)AfAm 59.08 Est GFR (CKD-EPI)NonAf 50.97 POC Glucometer Random Glucose 102 Calcium 8.3 L Total Bilirubin 0.4 AST 28 ALT 38 Alkaline Phosphatase 48 Total Protein 5.3 L Albumin 2.4 L TSH 4.89 H plan: synthroid dose inc to 100mcg q am vascular surgical follow up wound care
[2019-02-08] MEDS: LEVOTHYROXINE NA 100 MCG TABLET (FP) PO SCH (06:37)
[2019-02-08] MEDS: PRAMIPEXOLE DIHYDROCHLORIDE 0.25 MG TABLET PO SCH ×3 (06:37→21:47)
[2019-02-08 09:37] LABS: INR 2.38 (0.83-1.09); PROTHROMBIN TIME (PATIENT) 28.3 SEC (9.7-13.0)
[2019-02-08] MEDS: COLLAGENASE CLOSTRIDIUM HIST. 30 GRAMS TUBE TP SCH (10:04)
[2019-02-08] MEDS: metoPROLOL SUCCINATE 25 MG TAB.SR.24H (FP) PO SCH (10:45)
[2019-02-08] MEDS: FERROUS SO4 325 MG TABLET (FP) PO SCH (10:50)
[2019-02-08] MEDS: RANITIDINE HCL 150 MG TABLET (FP) PO SCH ×2 (10:55→21:47)
[2019-02-08] MEDS: MEMANTINE HCL 5 MG TABLET (UD) PO SCH ×2 (10:55→21:47)
[2019-02-08] MEDS: MULTIVITAMINS (DAILY MVI) TABLET (FP) PO SCH (10:55)
--- NOTE | 2019-02-08 11:34 | PN ---
Progress Note, Physician - Current Medication List Current Medications: Active Medications Collagenase (Santyl -) 1 applic TP DAILY [facility]; Protocol Last Admin: 02/08/19 10:04 Dose: 1 applic Ferrous Sulfate (Feosol -) 325 mg PO DAILY [facility] Last Admin: 02/08/19 10:50 Dose: 325 mg Levothyroxine Sodium (Synthroid -) 100 mcg PO DAILY@0700 [facility] Last Admin: 02/08/19 06:37 Dose: 100 mcg Memantine (Namenda -) 5 mg PO BID [facility] Last Admin: 02/08/19 10:55 Dose: 5 mg Metoprolol Succinate (Toprol Xl -) 12.5 mg PO DAILY [facility] Last Admin: 02/08/19 10:45 Dose: 12.5 mg Mometasone Furoate (Asmanex 220mcg -) 1 puff IH HS [facility] Last Admin: 02/07/19 22:28 Dose: 1 puff Multivitamins/Minerals/Vitamin C (Tab-A-Vit -) 1 tab PO DAILY [facility] Last Admin: 02/08/19 10:55 Dose: 1 tab Pramipexole Dihydrochloride (Mirapex -) 0.25 mg PO TID [facility] Last Admin: 02/08/19 06:37 Dose: 0.25 mg Ranitidine HCl (Zantac -) 150 mg PO BID [facility] Last Admin: 02/08/19 10:55 Dose: 150 mg - Objective Vital Signs: Vital Signs Temperature 98.5 F 02/08/19 05:00 Pulse Rate 60 02/08/19 05:00 Respiratory Rate 20 02/08/19 05:00 Blood Pressure 100/54 L 02/08/19 05:00 O2 Sat by Pulse Oximetry (%) 98 02/07/19 09:00 Labs: CBC, BMP 02/07/19 12:16 02/07/19 12:16 INR, PTT INR 2.38 (0.83-1.09) H 02/08/19 08:05
[2019-02-08] MEDS: MOMETASONE FUROATE 220 MCG/IH INHALER IH SCH (21:51)
[2019-02-09] MEDS: PRAMIPEXOLE DIHYDROCHLORIDE 0.25 MG TABLET PO SCH ×3 (06:18→22:25)
[2019-02-09] MEDS: LEVOTHYROXINE NA 100 MCG TABLET (FP) PO SCH (06:18)
[2019-02-09 08:39] LABS: INR 1.96 (0.83-1.09); PROTHROMBIN TIME (PATIENT) 23.3 SEC (9.7-13.0)
[2019-02-09] MEDS ORDERED: PT OWN MED DRAWER 7, Y5N ONE (10:17)
[2019-02-09] MEDS: metoPROLOL SUCCINATE 25 MG TAB.SR.24H (FP) PO SCH (10:29)
[2019-02-09] MEDS: MEMANTINE HCL 5 MG TABLET (UD) PO SCH ×2 (10:29→22:25)
[2019-02-09] MEDS: MULTIVITAMINS (DAILY MVI) TABLET (FP) PO SCH (10:29)
[2019-02-09] MEDS: FAMOTIDINE 20 MG TABLET PO SCH ×2 (10:29→22:25)
[2019-02-09] MEDS: FERROUS SO4 325 MG TABLET (FP) PO SCH (10:29)
[2019-02-09] MEDS: COLLAGENASE CLOSTRIDIUM HIST. 30 GRAMS TUBE TP SCH (10:30)
--- NOTE | 2019-02-09 16:45 | DS ---
Physical Examination Vital Signs: Vital Signs Temperature 99.3 F 02/09/19 10:00 Pulse Rate 55 L 02/09/19 10:00 Respiratory Rate 20 02/09/19 10:00 Blood Pressure 139/58 L 02/09/19 10:00 O2 Sat by Pulse Oximetry (%) 96 02/09/19 09:00 Findings/Remarks: Laboratory Last Values WBC 5.4 K/mm3 (4.0-10.0) 02/07/19 12:16 RBC 3.55 M/mm3 (3.60-5.2) L 02/07/19 12:16 Hgb 10.7 GM/dL (10.7-15.3) 02/07/19 12:16 Hct 33.3 % (32.4-45.2) 02/07/19 12:16 MCV 93.8 fl (80-96) 02/07/19 12:16 MCH 30.2 pg (25.7-33.7) 02/07/19 12:16 MCHC 32.2 g/dl (32.0-36.0) 02/07/19 12:16 RDW 18.3 % (11.6-15.6) H 02/07/19 12:16 Plt Count 171 K/MM3 (134-434) D 02/07/19 12:16 MPV 8.5 fl (7.5-11.1) 02/07/19 12:16 Absolute Neuts (auto) 3.9 K/mm3 (1.5-8.0) 02/07/19 12:16 Neutrophils % 72.4 % (42.8-82.8) 02/07/19 12:16 Lymphocytes % 6.6 % (8-40) L D 02/07/19 12:16 Monocytes % 14.4 % (3.8-10.2) H 02/07/19 12:16 Eosinophils % 5.4 % (0-4.5) H D 02/07/19 12:16 Basophils % 1.2 % (0-2.0) D 02/07/19 12:16 Nucleated RBC % 0 % (0-0) 02/07/19 12:16 PT with INR 23.30 SEC (9.7-13.0) H 02/09/19 07:35 INR 1.96 (0.83-1.09) H 02/09/19 07:35 PTT (Actin FS) 49.8 SECONDS (25.2-36.5) H 02/06/19 15:35 Sodium 144 mmol/L (136-145) 02/07/19 12:16 Potassium 3.5 mmol/L (3.5-5.1) 02/07/19 12:16 Chloride 108 mmol/L (98-107) H 02/07/19 12:16 Carbon Dioxide 27 mmol/L (21-32) 02/07/19 12:16 Anion Gap 9 MMOL/L (8-16) 02/07/19 12:16 BUN 20.0 mg/dL (7-18) H 02/07/19 12:16 Creatinine 1.0 mg/dL (0.55-1.3) 02/07/19 12:16 Est GFR (CKD-EPI)AfAm 59.08 02/07/19 12:16 Est GFR (CKD-EPI)NonAf 50.97 02/07/19 12:16 POC Glucometer 70 UNITS (80-120) 02/07/19 06:16 Random Glucose 102 mg/dL (74-106) 02/07/19 12:16 Calcium 8.3 mg/dL (8.5-10.1) L 02/07/19 12:16 Total Bilirubin 0.4 mg/dL (0.2-1) 02/07/19 12:16 AST 28 U/L (15-37) 02/07/19 12:16 ALT 38 U/L (13-61) 02/07/19 12:16 Alkaline Phosphatase 48 U/L (45-117) 02/07/19 12:16 Total Protein 5.3 g/dl (6.4-8.2) L 02/07/19 12:16 Albumin 2.4 g/dl (3.4-5.0) L 02/07/19 12:16 TSH 4.89 uIU/ml (0.358-3.74) H 02/07/19 12:16 Active Medications Generic Name Dose Route Start Last Admin Trade Name Freq PRN Reason Stop Dose Admin Collagenase 1 applic 02/07/19 16:30 02/09/19 10:30 Santyl - TP 1 applic DAILY GIRISH Administration Protocol Famotidine 20 mg 02/09/19 10:00 02/09/19 10:29 Pepcid - PO 20 mg BID GIRISH Administration Ferrous Sulfate 325 mg 02/07/19 10:00 02/09/19 10:29 Feosol - PO 325 mg DAILY GIRISH Administration Levothyroxine Sodium 100 mcg 02/08/19 07:00 02/09/19 06:18 Synthroid - PO 100 mcg DAILY@0700 GIRISH Administration Memantine 5 mg 02/07/19 10:00 02/09/19 10:29 Namenda - PO 5 mg BID GIRISH Administration Metoprolol Succinate 12.5 mg 02/07/19 10:00 02/09/19 10:29 Toprol Xl - PO 12.5 mg DAILY GIRISH Administration Mometasone Furoate 1 puff 02/07/19 22:00 02/08/19 21:51 Asmanex 220mcg - IH 1 puff HS GIRISH Administration Multivitamins/Minerals/Vitamin C 1 tab 02/07/19 10:00 02/09/19 10:29 Tab-A-Vit - PO 1 tab DAILY GIRISH Administration Pramipexole Dihydrochloride 0.25 mg 02/07/19 06:00 02/09/19 13:20 Mirapex - PO 0.25 mg TID GIRISH Administration Warfarin Sodium 2 mg 02/09/19 18:00 Coumadin - PO DAILY@1800 GIRISH Constitutional: Yes: No Distress, Calm Eyes: Yes: Conjunctiva Clear HENT: Yes: Atraumatic Cardiovascular: Yes: Regular Rate and Rhythm Respiratory: Yes: Regular, CTA Bilaterally Gastrointestinal: Yes: Normal Bowel Sounds, Soft Renal/: Yes: Incontinence Musculoskeletal: Yes: Muscle Weakness Extremities: Yes: WNL Edema: No Wound/Incision: Yes: Dressing Dry and Intact Neurological: Yes: Alert, Pre-Existing Deficit Psychiatric: Yes: Alert Labs: CBC, BMP 02/07/19 12:16 02/07/19 12:16 Discharge Summary Problems reviewed: Yes Reason For Visit: PAIN OF LOWER EXTREMITY Current Active Problems Acquired hypothyroidism (Acute) Leg pain, right (Acute) Multiple myeloma (Acute) Hospital Course: This is an 88 year old woman from [facility] with a past medical history of Multiple Myeloma, Diabetes, chronic Right Leg Wound (follows with Dr. Zaman). Who presents to the ED for evaluation of right lower leg pain and swelling. The patient reports that she has had 1 day of below the knee right leg pain that is 8-9/10. She states that her pain comes in episodes that last for a few seconds and happen multiple times per hour. She reports not taking anything for the pain. Patient denies headache, lightheadedness. Denies fever, chills. Denies chest pain, shortness of breath. Denies nausea, vomiting, diarrhea, abdominal pain. Evaluated by Vascular and no need for surgical interventions, recommendations for daily wound dressings. Evaluated by ID and no need for antibiotic therapy at present. Condition: Stable - Instructions Diet, Activity, Other Instructions: follow up with PMD in 1 week Daily dressing changes, apply santyl to RLE wound cover with damp to dry kerlix RLE elevation Follow up with Dr Zaman in wound care clinic return to ER if develop severe pain respiratory distress and chest pain Referrals: Tacos Rowe MD [Staff Physician] - Anthony Zaman DO [Staff Physician] - Disposition: LONG-TERM FACILITY - Home Medications Comprehensive Discharge Medication List: Ambulatory Orders Acetaminophen [Tylenol] 2 tab PO Q8H PRN 10/24/18 Albuterol Sulfate [Proair Hfa] 1 puff IH Q6H PRN 10/24/18 Atorvastatin Ca [Lipitor] 1 tab PO HS 10/24/18 Clotrimazole [Mycelex -] 10 mg PO TID 10/24/18 Dexamethasone 1 tab PO Q72H 10/24/18 Ferrous Sulfate [Feosol] 1 tab PO DAILY 10/24/18 Fluticasone Furoate [Arnuity Ellipta] 2 puff IH DAILY 10/24/18 Gabapentin 1 tab PO TID 10/24/18 Lenalidomide [Revlimid] 1 tab PO DAILY 10/24/18 Magnesium Oxide [Magnesium] 200 mg PO DAILY 10/24/18 Memantine HCl [Namenda -] 1 tab PO Q12H 10/24/18 Metoprolol Succinate [Toprol Xl] 12.5 mg PO DAILY 10/24/18 Multivitamin [Multiple Vitamins] 1 tab PO DAILY 10/24/18 Pramipexole Di-HCl [Mirapex] 1 tab PO TID 10/24/18 Tramadol HCl 1 tab PO Q8H PRN 10/24/18 Valacyclovir HCl [Valtrex -] 1 tab PO DAILY 10/24/18 Warfarin Sodium [Coumadin] 2 mg PO HS 10/31/18 Collagenase Clostridium Hist. [Santyl -] 1 applic TP DAILY tube 02/09/19 Famotidine [Pepcid -] 20 mg PO BID tablet 02/09/19 Levothyroxine [Synthroid -] 100 mcg PO DAILY@0700 tablet 02/09/19
[2019-02-09] MEDS ORDERED: WARFARIN NA 2 MG TABLET (UD) PO SCH (18:00)
[2019-02-09] MEDS: MOMETASONE FUROATE 220 MCG/IH INHALER IH SCH (22:26)
[2019-02-10] MEDS: PRAMIPEXOLE DIHYDROCHLORIDE 0.25 MG TABLET PO SCH (06:09)
[2019-02-10] MEDS: LEVOTHYROXINE NA 100 MCG TABLET (FP) PO SCH (06:09)
[2019-02-10 07:35] VITALS: TEMP 98
[2019-02-10] MEDS: FERROUS SO4 325 MG TABLET (FP) PO SCH (09:03)
[2019-02-10] MEDS: MULTIVITAMINS (DAILY MVI) TABLET (FP) PO SCH (09:03)
[2019-02-10] MEDS: FAMOTIDINE 20 MG TABLET PO SCH (09:03)
[2019-02-10] MEDS: metoPROLOL SUCCINATE 25 MG TAB.SR.24H (FP) PO SCH (09:03)
[2019-02-10] MEDS: MEMANTINE HCL 5 MG TABLET (UD) PO SCH (09:04)
[2019-02-10] MEDS: COLLAGENASE CLOSTRIDIUM HIST. 30 GRAMS TUBE TP SCH (09:04)
[2019-02-10 09:06] VITALS: BP 145/80; PULSE 62
--- NOTE | 2019-02-10 10:17 | DS ---
Physical Examination Vital Signs: Vital Signs Temperature 98.0 F 02/10/19 07:27 Pulse Rate 62 02/10/19 09:00 Respiratory Rate 14 02/10/19 09:00 Blood Pressure 145/80 02/10/19 09:00 O2 Sat by Pulse Oximetry (%) 98 02/10/19 08:00 Labs: CBC, BMP 02/07/19 12:16 02/07/19 12:16 Discharge Summary Problems reviewed: Yes Reason For Visit: PAIN OF LOWER EXTREMITY Current Active Problems Acquired hypothyroidism (Acute) Leg pain, right (Acute) Multiple myeloma (Acute) Hospital Course: This is an 88 year old woman from [facility] with a past medical history of Multiple Myeloma, Diabetes, chronic Right Leg Wound (follows with Dr. Zaman). Who presents to the ED for evaluation of right lower leg pain and swelling. The patient reports that she has had 1 day of below the knee right leg pain that is 8-9/10. She states that her pain comes in episodes that last for a few seconds and happen multiple times per hour. She reports not taking anything for the pain. Patient denies headache, lightheadedness. Denies fever, chills. Denies chest pain, shortness of breath. Denies nausea, vomiting, diarrhea, abdominal pain. Evaluated by Vascular and no need for surgical interventions, recommendations for daily wound dressings. Evaluated by ID and no need for antibiotic therapy at present. Condition: Stable - Instructions Diet, Activity, Other Instructions: follow up with PMD in 1 week Daily dressing changes, apply santyl to RLE wound cover with damp to dry kerlix RLE elevation Follow up with Dr Zaman in wound care clinic return to ER if develop severe pain respiratory distress and chest pain Referrals: Tacos Rowe MD [Staff Physician] - Anthony Zaman DO [Staff Physician] - Disposition: CARE HOME FACILITY - Home Medications Comprehensive Discharge Medication List: Ambulatory Orders Acetaminophen [Tylenol] 2 tab PO Q8H PRN 10/24/18 Albuterol Sulfate [Proair Hfa] 1 puff IH Q6H PRN 10/24/18 Atorvastatin Ca [Lipitor] 1 tab PO HS 10/24/18 Clotrimazole [Mycelex -] 10 mg PO TID 10/24/18 Dexamethasone 1 tab PO Q72H 10/24/18 Ferrous Sulfate [Feosol] 1 tab PO DAILY 10/24/18 Fluticasone Furoate [Arnuity Ellipta] 2 puff IH DAILY 10/24/18 Gabapentin 1 tab PO TID 10/24/18 Lenalidomide [Revlimid] 1 tab PO DAILY 10/24/18 Magnesium Oxide [Magnesium] 200 mg PO DAILY 10/24/18 Memantine HCl [Namenda -] 1 tab PO Q12H 10/24/18 Metoprolol Succinate [Toprol Xl] 12.5 mg PO DAILY 10/24/18 Multivitamin [Multiple Vitamins] 1 tab PO DAILY 10/24/18 Pramipexole Di-HCl [Mirapex] 1 tab PO TID 10/24/18 Tramadol HCl 1 tab PO Q8H PRN 10/24/18 Valacyclovir HCl [Valtrex -] 1 tab PO DAILY 10/24/18 Warfarin Sodium [Coumadin] 2 mg PO HS 10/31/18 Collagenase Clostridium Hist. [Santyl -] 1 applic TP DAILY tube 02/09/19 Famotidine [Pepcid -] 20 mg PO BID tablet 02/09/19 Levothyroxine [Synthroid -] 100 mcg PO DAILY@0700 tablet 02/09/19
== END 2019-02-10 11:38 | DRG 74 ==
LOC: JER 10:26 → JERBED 17:06 → J6S 02-07 01:11
PROVIDERS: ADMIT Internal Medicine; ATTEND Family Medicine
DX: E11.40 Type 2 diabetes mellitus with diabetic neuropathy, unspecified (principal); L97.918 Non-pressure chronic ulcer of unspecified part of right lower leg with other specified severity; C90.00 Multiple myeloma not having achieved remission; E11.622 Type 2 diabetes mellitus with other skin ulcer; E78.5 Hyperlipidemia, unspecified; K21.9 Gastro-esophageal reflux disease without esophagitis; F03.90 Unspecified dementia, unspecified severity, without behavioral disturbance, psychotic disturbance, mood disturbance, and anxiety; M79.604 Pain in right leg; R79.1 Abnormal coagulation profile; D51.0 Vitamin B12 deficiency anemia due to intrinsic factor deficiency; I11.0 Hypertensive heart disease with heart failure; I50.9 Heart failure, unspecified; E03.9 Hypothyroidism, unspecified; R00.1 Bradycardia, unspecified; Z86.718 Personal history of other venous thrombosis and embolism; Z87.891 Personal history of nicotine dependence
CPT/HCPCS: 36415; 71046-TC-FY; 80053; 82784; 82962; 83615; 83735; 83883; 84155; 84165; 84443; 84550; 85025; 85610; 85730; 86334; 87040; 93005; 93010; 93971-TC; 96401; 99284-25; J9041

== ENCOUNTER 2019-02-27 07:28 | Day surgery (SDC) | payer OTHER, BC, MEDICARE ==
[2019-02-27 09:12] LABS: BASO % 2.5 % (0-2.0); EOS % 2.5 % (0-4.5); HEMATOCRIT 36.1 % (32.4-45.2); HEMOGLOBIN 11.4 GM/dL (10.7-15.3); LYMPH % 13.3 % (8-40); MCH 30.6 pg (25.7-33.7); MCHC 31.5 g/dl (32.0-36.0); MEAN CELL VOLUME 97.3 fl (80-96); MEAN PLT VOLUME 8.5 fl (7.5-11.1); MONO % 13.6 % (3.8-10.2); NEUT % 68.1 % (42.8-82.8); PLATELET COUNT 204 K/MM3 (134-434); RBC 3.71 M/mm3 (3.60-5.2); RDW 18.5 % (11.6-15.6)
[2019-02-27 09:50] LABS: ALBUMIN 2.7 g/dl (3.4-5.0); BILIRUBIN,TOTAL 0.4 mg/dL (0.2-1); BLOOD UREA NITROGEN 14.6 mg/dL (7-18); CALCIUM 9.1 mg/dL (8.5-10.1); CREATININE 0.9 mg/dL (0.55-1.3); MAGNESIUM 2.3 mg/dL (1.8-2.4); POTASSIUM 3.8 mmol/L (3.5-5.1); TOT PROT 6.1 g/dl (6.4-8.2)
[2019-02-27] MEDS ORDERED: BORTEZOMIB (VELCADE) 2.5 MG/ML SUB-Q INJECTION SQ ONE (10:00)
[2019-02-27 15:58] VITALS: BP 138/50; PULSE 46; TEMP 97.9
== END 2019-02-27 11:15 | disposition home or self-care (01) ==
LOC: JONCCHEMO 07:28 → J7W 10:31 → JONCCHEMO 11:15
PROVIDERS: ATTEND Internal Medicine Hematology & Oncology
DX: Z51.11 Encounter for antineoplastic chemotherapy (principal); C90.00 Multiple myeloma not having achieved remission
CPT/HCPCS: 36415; 80053; 83615; 83735; 84550; 85025; 96401; J9041

== ENCOUNTER 2019-03-20 07:05 | Day surgery (SDC) | payer OTHER, BC, MEDICARE ==
[2019-03-20 08:45] LABS: BASO % 0.5 % (0-2.0); EOS % 0.3 % (0-4.5); HEMATOCRIT 32.8 % (32.4-45.2); HEMOGLOBIN 10.9 GM/dL (10.7-15.3); LYMPH % 9.3 % (8-40); MCH 30.7 pg (25.7-33.7); MCHC 33.3 g/dl (32.0-36.0); MEAN CELL VOLUME 92.1 fl (80-96); MONO % 12.8 % (3.8-10.2); NEUT % 77.1 % (42.8-82.8); PLATELET COUNT 214 K/MM3 (134-434); RBC 3.56 M/mm3 (3.60-5.2); RDW 19.1 % (11.6-15.6); WHITE BLOOD COUNT 5.1 K/mm3 (4.0-10.0)
[2019-03-20 09:13] LABS: ALBUMIN 2.8 g/dl (3.4-5.0); BILIRUBIN,TOTAL 0.4 mg/dL (0.2-1); BLOOD UREA NITROGEN 18.5 mg/dL (7-18); CALCIUM 8.8 mg/dL (8.5-10.1); MAGNESIUM 2.1 mg/dL (1.8-2.4); POTASSIUM 4.3 mmol/L (3.5-5.1); TOT PROT 5.9 g/dl (6.4-8.2)
[2019-03-20] MEDS ORDERED: BORTEZOMIB (VELCADE) 2.5 MG/ML SUB-Q INJECTION SQ ONE (10:00)
[2019-03-20 10:09] VITALS: BP 107/44; PULSE 51; TEMP 97.9
== END 2019-03-20 10:10 | disposition home or self-care (01) ==
LOC: JONCCHEMO 07:05 → J7W 09:13 → JONCCHEMO 10:10
PROVIDERS: ATTEND Internal Medicine Hematology & Oncology
DX: Z51.11 Encounter for antineoplastic chemotherapy (principal); C90.00 Multiple myeloma not having achieved remission
CPT/HCPCS: 36415; 80053; 83615; 83735; 84550; 85025; 96401; J9041

== ENCOUNTER 2019-04-03 07:14 | Day surgery (SDC) | payer OTHER, BC, MEDICARE ==
[2019-04-03 09:25] LABS: BASO % 0.5 % (0-2.0); HEMATOCRIT 36.4 % (32.4-45.2); HEMOGLOBIN 11.5 GM/dL (10.7-15.3); LYMPH % 4.7 % (8-40); MCH 29.6 pg (25.7-33.7); MCHC 31.6 g/dl (32.0-36.0); MEAN CELL VOLUME 93.8 fl (80-96); MEAN PLT VOLUME 9.9 fl (7.5-11.1); MONO % 8.7 % (3.8-10.2); NEUT % 86.1 % (42.8-82.8); PLATELET COUNT 213 K/MM3 (134-434); RBC 3.89 M/mm3 (3.60-5.2); RDW 19.9 % (11.6-15.6); WHITE BLOOD COUNT 8.9 K/mm3 (4.0-10.0)
[2019-04-03] MEDS ORDERED: BORTEZOMIB (VELCADE) 2.5 MG/ML SUB-Q INJECTION SQ ONE (10:00)
[2019-04-03 10:02] LABS: BILIRUBIN,TOTAL 0.4 mg/dL (0.2-1); BLOOD UREA NITROGEN 24.7 mg/dL (7-18); CALCIUM 9.3 mg/dL (8.5-10.1); CREATININE 1.1 mg/dL (0.55-1.3); MAGNESIUM 2.3 mg/dL (1.8-2.4); POTASSIUM 4.4 mmol/L (3.5-5.1); TOT PROT 5.9 g/dl (6.4-8.2); URIC ACID 4.6 mg/dL (2.6-7.2)
[2019-04-03 12:47] VITALS: BP 114/37; PULSE 48; TEMP 97.7
[2019-04-04 18:07] LABS: FREE KAPPA,SERUM 15.1 mg/L (3.3-19.4)
[2019-04-05 05:08] LABS: FREE KAP CHN UR 58.2 mg/L (1.35-24.19); KAPPA LAMBDA RATIO URIN 13.41 (2.04-10.37)
== END 2019-04-03 11:30 | disposition home or self-care (01) ==
LOC: JONCCHEMO 07:14 → J7W 10:50 → JONCCHEMO 11:30
PROVIDERS: ATTEND Internal Medicine Hematology & Oncology
DX: Z51.11 Encounter for antineoplastic chemotherapy (principal); C90.00 Multiple myeloma not having achieved remission
CPT/HCPCS: 36415; 80053; 82784; 83615; 83735; 83883; 84155; 84165; 84550; 85025; 96401; J9041

== ENCOUNTER 2019-04-16 07:10 | Day surgery (SDC) | payer OTHER, BC, MEDICARE ==
[2019-04-16] MEDS ORDERED: BORTEZOMIB (VELCADE) 2.5 MG/ML SUB-Q INJECTION SQ ONE (10:00)
[2019-04-16 10:25] LABS: BASO % 0.8 % (0-2.0); EOS % 2.3 % (0-4.5); HEMATOCRIT 34.8 % (32.4-45.2); HEMOGLOBIN 11.3 GM/dL (10.7-15.3); LYMPH % 5.5 % (8-40); MCH 30.3 pg (25.7-33.7); MCHC 32.4 g/dl (32.0-36.0); MEAN CELL VOLUME 93.3 fl (80-96); MEAN PLT VOLUME 9.2 fl (7.5-11.1); MONO % 4.6 % (3.8-10.2); NEUT % 86.8 % (42.8-82.8); PLATELET COUNT 157 K/MM3 (134-434); RBC 3.73 M/mm3 (3.60-5.2); RDW 19.9 % (11.6-15.6); WHITE BLOOD COUNT 4.7 K/mm3 (4.0-10.0)
[2019-04-16 10:56] LABS: ALBUMIN 2.7 g/dl (3.4-5.0); BILIRUBIN,TOTAL 0.3 mg/dL (0.2-1); BLOOD UREA NITROGEN 12.7 mg/dL (7-18); CALCIUM 8.5 mg/dL (8.5-10.1); CREATININE 0.9 mg/dL (0.55-1.3); MAGNESIUM 2.1 mg/dL (1.8-2.4); POTASSIUM 3.6 mmol/L (3.5-5.1); TOT PROT 5.4 g/dl (6.4-8.2); URIC ACID 4.7 mg/dL (2.6-7.2)
[2019-04-16 18:51] VITALS: PULSE 119; TEMP 98
[2019-04-16 18:53] VITALS: BP 144/84
== END 2019-04-16 13:45 | disposition home or self-care (01) ==
LOC: JONCCHEMO 07:10 → J7W 12:23 → JONCCHEMO 13:45
PROVIDERS: ATTEND Internal Medicine Hematology & Oncology
DX: Z51.11 Encounter for antineoplastic chemotherapy (principal); C90.00 Multiple myeloma not having achieved remission; E11.9 Type 2 diabetes mellitus without complications; I82.409 Acute embolism and thrombosis of unspecified deep veins of unspecified lower extremity; E03.9 Hypothyroidism, unspecified; G62.9 Polyneuropathy, unspecified
CPT/HCPCS: 36415; 80053; 83615; 83735; 84550; 85025; 96401; J9041

== ENCOUNTER 2019-05-01 05:56 | Day surgery (SDC) | payer OTHER, BC, MEDICARE ==
[2019-05-01 08:46] LABS: BASO % 0.1 % (0-2.0); HEMATOCRIT 35.9 % (32.4-45.2); HEMOGLOBIN 11.6 GM/dL (10.7-15.3); MCH 30.6 pg (25.7-33.7); MCHC 32.4 g/dl (32.0-36.0); MEAN CELL VOLUME 94.5 fl (80-96); MEAN PLT VOLUME 9.7 fl (7.5-11.1); MONO % 5.9 % (3.8-10.2); PLATELET COUNT 153 K/MM3 (134-434); RDW 20.2 % (11.6-15.6)
[2019-05-01 09:13] LABS: ALBUMIN 2.9 g/dl (3.4-5.0); BILIRUBIN,TOTAL 0.6 mg/dL (0.2-1); BLOOD UREA NITROGEN 20.6 mg/dL (7-18); CALCIUM 8.8 mg/dL (8.5-10.1); MAGNESIUM 2.3 mg/dL (1.8-2.4); POTASSIUM 4.2 mmol/L (3.5-5.1); TOT PROT 5.6 g/dl (6.4-8.2); URIC ACID 4.7 mg/dL (2.6-7.2)
[2019-05-01] MEDS ORDERED: BORTEZOMIB (VELCADE) 2.5 MG/ML SUB-Q INJECTION SQ ONE (10:00)
[2019-05-01] MEDS ORDERED: FUROSEMIDE 20 MG TABLET (FP) PO ONE (10:45)
[2019-05-01 14:54] VITALS: BP 106/48; PULSE 54; TEMP 98
== END 2019-05-01 10:50 | disposition home or self-care (01) ==
LOC: JONCCHEMO 05:56 → J7W 09:30 → JONCCHEMO 10:50
PROVIDERS: ATTEND Internal Medicine Hematology & Oncology
DX: Z51.11 Encounter for antineoplastic chemotherapy (principal); C90.00 Multiple myeloma not having achieved remission
CPT/HCPCS: 36415; 80053; 83615; 83735; 84550; 85025; 96401; J9041

== ENCOUNTER 2019-05-14 19:14 | Inpatient (IN) | payer OTHER, BC, MEDICARE ==
[2019-05-14 19:43] VITALS: BMI 25.8
--- NOTE | 2019-05-14 21:49 | PDOC ---
Attending Attestation - Resident Resident Name: Sachin Barraza - ED Attending Attestation I have performed the following: I have examined & evaluated the patient, The case was reviewed & discussed with the resident, I agree w/resident's findings & plan - HPI HPI: 05/15/19 20:17 see resident hpi - Physicial Exam PE: 05/15/19 20:17 agree with resident exam - Medical Decision Making 05/15/19 20:17 88-year-old female with altered mental status and fever While in the department patient became more confused, rectal temp increased to 102 Left leg became more erythematous with bullous lesions forming Patient received cefepime and vancomycin Repeat lactic acid had elevated as well Normal saline bolus given Patient admitted to medical service CT scan of the lower extremity was performed to rule out gas-forming organisms Case discussed with medical service for admission
[2019-05-14] MEDS ORDERED: LACTATED RINGERS SOLUTION 1000 ML INFUS.BAG IV ONE (22:12)
--- NOTE | 2019-05-14 22:13 | PDOC ---
History of Present Illness - General Chief Complaint: Weakness Stated Complaint: WEAKNESS Time Seen by Provider: 05/14/19 21:38 History Source: Patient, Long Term Records, Old Records, Other (Family friends at bedside.) Exam Limitations: Clinical Condition, Dementia - History of Present Illness Initial Comments: HPI: 88 y/o female presenting to [facility] ER from [facility] presenting for evaluation of "hypotension, lethargic" according to transfer paperwork. BP noted 81/53 w/ HR 88 T99 R200 SPO2 94% prior to transfer. Received Tylenol and 1g Keflex at 4pm. Pt is disoriented and unable to provide HPI. Complaining generally of pain in lower extremities. Close family friends at bedside report the pt is normally forgetful, but otherwise oriented and conversant. Todays presentation is an acute change. Full code per [facility] Paperwork. Medical Hx: - Multiple Myeloma (currently on chemo (Velcade), sees Dr. Marie) - Diabetes w/ unspecified neuropathy - Chronic R leg wound - Hypothyroidism - A-fib on Warfarin - DVT - GERD - Fibromyalgia - HLD Review of Systems: Unable to obtain secondary to pt condition Physical Examination: Vital signs and nursing notes reviewed. Constitutional- Nontoxic elderly female in no acute distress or obvious discomfort. Found semi-fowlers on hospital bed. Answered all questions appropriately and completely. Head- Normocephalic. No obvious external signs of trauma. Eyes- Sclerae white. Neck- Supple, trachea is midline. Cardiovascular / Chest- Regular rate and regular rhythm. No murmur, rubs, clicks , or gallops. Peripheral pulses- radial pulses full. Respiratory- Breathing unlabored. Equal chest rise and fall. Clear to auscultation bilaterally. No stridor, no wheezing, no rhonchi. Gastrointestinal- abdomen is soft, non-tender, non-distended. Neuro- Alert and but disoriented. Moving all four extremities spontaneously. Skin- Diffuse edema to R and L lower extremities. L leg has overlying redness without discharge. No warm. No skin break down. R lower extremity has chronic appearing, well vitalized lesion to the medial aspect. Covered with clean and dry dressing. Psych- Affect- appropriate. Dressed and groomed appropriately. MDM: 88 y/o female presenting with disorientation and hypotension prior to arrival. Afebrile. Vitals unremarkable for hypotension or tachycardia. Physical exam as described above. ED Sepsis order set initiated by ED Preattending prior to my evaluation. HCT ordered for AMS and elevated INR. CXR concerning for possible right lower lobe consolidation per ED wet read. Radiology report pending. Ordered Vancomycin and Cefepime for broad spectrum antibiotics for PNA. Reviewed laboratory and radiology results. Will admit pt for PNA complicated by AMS. 15 May 2019 04:12 AM Called to bedside by RN. Pt now more confused. Left leg now with open superficial skin lesion. No bleeding or purulent discharge. Leg now globally warm. Will repeat CBC, CPK, and lactic acid to trend. Ordered soft restraints and gutierrez for pt safety and to promote healing. 15 May 2019 04:33 AM Telephone discussion with NANDINI Jimenez. Verbally appraised of the pts HPI, ED course, and current plan of management. Will admit pt to med /surg for attending Dr. Champion. Sachin Barraza M.D., PGY2 Emergency Medicine Resident Past History - Past Medical History Allergies/Adverse Reactions: Allergies Allergy/AdvReac Type Severity Reaction Status Date / Time No Known Allergies Allergy Verified 05/14/19 19:39 Home Medications: Ambulatory Orders Acetaminophen [Tylenol] 2 tab PO Q8H PRN 10/24/18 Albuterol Sulfate [Proair Hfa] 1 puff IH Q6H PRN 10/24/18 Atorvastatin Ca [Lipitor] 1 tab PO HS 10/24/18 Dexamethasone 5 tab PO Q72H 10/24/18 Ferrous Sulfate [Feosol] 1 tab PO DAILY 10/24/18 Fluticasone Furoate [Arnuity Ellipta] 2 puff IH DAILY 10/24/18 Gabapentin 1 tab PO TID 10/24/18 Lenalidomide [Revlimid] 1 tab PO DAILY 10/24/18 Magnesium Oxide [Magnesium] 1 tab PO DAILY 10/24/18 Memantine HCl [Namenda -] 1 tab PO Q12H 10/24/18 Metoprolol Succinate [Toprol Xl] 12.5 mg PO DAILY 10/24/18 Multivitamin [Multiple Vitamins] 1 tab PO DAILY 10/24/18 Pramipexole Di-HCl [Mirapex] 1 tab PO TID 10/24/18 Tramadol HCl 1 tab PO Q8H PRN 10/24/18 Valacyclovir HCl [Valtrex -] 1 tab PO DAILY 10/24/18 Warfarin Sodium [Coumadin] 10 mg PO HS 10/31/18 Collagenase Clostridium Hist. [Santyl -] 1 applic TP DAILY tube 02/09/19 Famotidine [Pepcid -] 20 mg PO BID tablet 02/09/19 Levothyroxine [Synthroid -] 100 mcg PO DAILY@0700 tablet 02/09/19 Anemia: No Asthma: No Cancer: Yes (THYROID, MULTIPLE MYELOMA) Cardiac Disorders: Yes (afib/DVT) CVA: No COPD: No CHF: No Dementia: No Diabetes: Yes GI Disorders: No Disorders: No HTN: Yes Hypercholesterolemia: Yes Liver Disease: No Seizures: No Thyroid Disease: Yes (thyroid cancer, thyroidectomy done in 1999) - Surgical History Abdominal Surgery: Yes (exploratory lap) - Immunization History Immunization Up to Date: No - Psycho Social/Smoking Cessation Hx Smoking Status: No Smoking History: Never smoked Have you smoked in the past 12 months: No Number of Cigarettes Smoked Daily: 0 If you are a former smoker, when did you quit?: years ago Hx Alcohol Use: No Drug/Substance Use Hx: No Substance Use Type: None Hx Substance Use Treatment: No *Physical Exam - Vital Signs Last Vital Signs Temp Pulse Resp BP Pulse Ox 98.4 F 92 H 20 114/60 100 05/14/19 19:40 05/14/19 19:40 05/14/19 19:40 05/14/19 19:40 05/14/19 19:40 Vital Signs - Vital Signs #1 Time: 22:13 Blood Pressure: 91/54 BP Location: Right Arm Blood Pressure Position: Sitting Pulse Rate: 82 Respiratory Rate: 21 O2 Sat by Pulse Oximetry (%): 92 Oxygen Delivery Method: Nasal Cannula Oxygen Flow Rate: 1 ED Treatment Course - LABORATORY CBC & Chemistry Diagram: 05/14/19 21:45 05/14/19 21:45 - RADIOLOGY Radiograph Interpretation: HCT: THIS IS A PRELIMINARY REPORT FROM [facility] DATE OF SERVICE: 2019-05-15 02:42:45 IMAGES: 279 EXAM: HEAD CT WITHOUT CONTRAST HISTORY: Altered mental status COMPARISON: CT December 06, 2014 FINDINGS Involutional changes. Chronic microvascular changes. 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 No hemorrhage. No visible mass. Osseous structures are intact. One or more of the following dose reduction techniques were used: automated exposure control, adjustment of the mA and/or kV according to patient size, use of iterative reconstructive technique. THIS DOCUMENT HAS BEEN ELECTRONICALLY SIGNED Kendall Massey MD 05/15/2019 03:28 EST Discharge - Discharge Information Problems reviewed: Yes Clinical Impression/Diagnosis: Pneumonia Qualifiers: Pneumonia type: due to unspecified organism Laterality: right Lung location: lower lobe of lung Qualified Code(s): J18.9 - Pneumonia, unspecified organism Altered mental state Qualifiers: Altered mental status type: disorientation Qualified Code(s): R41.0 - Disorientation, unspecified Condition: Stable - Admission Yes - Follow up/Referral Referrals: Tacos Rowe MD [Primary Care Provider] - - Patient Discharge Instructions - Post Discharge Activity
[2019-05-14 22:18] LABS: BASO % 1.8 % (0-2.0); EOS % 0.1 % (0-4.5); HEMATOCRIT 33.7 % (32.4-45.2); HEMOGLOBIN 11.2 GM/dL (10.7-15.3); LYMPH % 3.4 % (8-40); MCH 30.9 pg (25.7-33.7); MCHC 33.2 g/dl (32.0-36.0); MEAN CELL VOLUME 93.1 fl (80-96); MEAN PLT VOLUME 9.2 fl (7.5-11.1); MONO % 10.2 % (3.8-10.2); NEUT % 84.5 % (42.8-82.8); PLATELET COUNT 107 K/MM3 (134-434); RBC 3.62 M/mm3 (3.60-5.2); RDW 19.8 % (11.6-15.6); WHITE BLOOD COUNT 4.9 K/mm3 (4.0-10.0)
[2019-05-14 22:19] LABS: VENOUS PC02 43.6 mmHg (38-52); VENOUS PH 7.39 (7.31-7.41); VENOUS PO2 < 49 mmHg (28-48)
[2019-05-14 22:51] LABS: PROTHROMBIN TIME (PATIENT) 57.6 SEC (9.7-13.0)
[2019-05-14 22:56] LABS: ALBUMIN 2.2 g/dl (3.4-5.0); ALK PHOS 39 U/L (45-117); ANION GAP 6 MMOL/L (8-16); BLOOD UREA NITROGEN 20.2 mg/dL (7-18); CALCIUM 7.7 mg/dL (8.5-10.1); CHLORIDE 112 mmol/L (98-107); CO2 26 mmol/L (21-32); CREATININE 1.2 mg/dL (0.55-1.3); GLUCOSE,RANDOM 103 mg/dL (74-106); POTASSIUM 4.4 mmol/L (3.5-5.1); SGOT/AST 42 U/L (15-37); SGPT/ALT 34 U/L (13-61); SODIUM 144 mmol/L (136-145); TOT PROT 4.9 g/dl (6.4-8.2)
[2019-05-14 23:24] LABS: ANISOCYTOSIS 1+; PLATELET ESTIMATE SLT DECREASE
[2019-05-14 23:28] LABS: INR 4.8 (0.83-1.09)
[2019-05-14] MEDS ORDERED: VANCOMYCIN HCL 1,500 MG in DEXTROSE 5%-WATER - 500 ML IVPB ONE (23:31)
[2019-05-14] MEDS ORDERED: CEFEPIME HCL/D5W 2 GM/50 ML BAG IVPB ONE (23:32)
[2019-05-15 03:05] LABS: PH,URINE 8.5 (5.0-8.0); URINE APPEARANCE CLEAR; URINE BILIRUBIN NEGATIVE (NEGATIVE); URINE COLOR YELLOW; URINE GLUCOSE (UA) NEGATIVE (NEGATIVE); URINE KETONE NEGATIVE (NEGATIVE); URINE LEUK ESTERASE NEGATIVE (NEGATIVE); URINE NITRITE NEGATIVE (NEGATIVE); URINE PROTEIN TRACE (NEGATIVE); URINE UROBILINOGEN 0.2 mg/dL (0.2-1.0)
[2019-05-15] MEDS ORDERED: CLINDAMYCIN 600MG PREMIX IVPB 600 MG/50 ML BAG IVPB ONE ×2 (04:43→05:09)
[2019-05-15] MEDS ORDERED: LACTATED RINGERS SOLUTION 1000 ML INFUS.BAG IV ONE (04:53)
[2019-05-15 04:57] LABS: BASO % 0.3 % (0-2.0); EOS % 0.2 % (0-4.5); HEMATOCRIT 33.8 % (32.4-45.2); HEMOGLOBIN 11.4 GM/dL (10.7-15.3); LYMPH % 9.8 % (8-40); MCH 31.3 pg (25.7-33.7); MCHC 33.8 g/dl (32.0-36.0); MEAN CELL VOLUME 92.4 fl (80-96); MEAN PLT VOLUME 9.1 fl (7.5-11.1); MONO % 11.9 % (3.8-10.2); NEUT % 77.8 % (42.8-82.8); PLATELET COUNT 115 K/MM3 (134-434); RBC 3.66 M/mm3 (3.60-5.2); RDW 20.4 % (11.6-15.6); WHITE BLOOD COUNT 4.4 K/mm3 (4.0-10.0)
[2019-05-15] MEDS ORDERED: ACETAMINOPHEN 1000 MG/100 ML VIAL (NON FORMULARY) IVPB ONE (05:06)
[2019-05-15] MEDS ORDERED: ACETAMINOPHEN INJECTION 100 ML IVPB ONE (05:09)
--- NOTE | 2019-05-15 05:09 | HP ---
Admitting History and Physical - Primary Care Physician PCP: Johann Wadsworth - Admission Chief Complaint: AMS, Fever History of Present Illness: This is a 88 y/owoman from [facility] with a PMHx of Multiple Myeloma (on chemo, Velcade), Diabetes with unspecified Neuropathy, Afib (on Coumadin), HLD, DVT, GERD, Fibromyalgia. Who presents to the ED presenting to for evaluation of "hypotension, lethargic" according to transfer paperwork. BP noted 81/53 w/ HR 88 T99 R200 SPO2 94% prior to transfer. Received Tylenol and 1g Keflex at 4pm. Pt is disoriented and unable to provide HPI. Complaining generally of pain in lower extremities. Family friends at bedside reported to the ED resident that the patient is normally forgetful, but otherwise oriented and conversant. Today s presentation is an acute change. History Source: Friend, Transfer Record Limitations to Obtaining History: Clinical Condition, Dementia - Past Medical History MEAT PASSER: Yes: Dementia, Vertigo Cardiovascular: Yes: AFIB, Deep Vein Thrombosis, HTN, Hyperlipdemia Gastrointestinal: Yes: GERD Heme/Onc: Yes: Other (multiple myeloma) Endocrine: Yes: Diabetes Mellitus - Past Surgical History Past Surgical History: Yes: Hysterectomy - Smoking History Smoking history: Former smoker Have you smoked in the past 12 months: No Aproximately how many cigarettes per day: 0 If you are a former smoker, when did you quit?: years ago - Alcohol/Substance Use Hx Alcohol Use: No History of Substance Use: reports: None - Social History Usual Living Arrangement: Yes: [facility] ADL: Support Services 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 History of Recent Travel: No Home Medications - Allergies Allergies/Adverse Reactions: Allergies Allergy/AdvReac Type Severity Reaction Status Date / Time No Known Allergies Allergy Verified 05/14/19 19:39 - Home Medications Home Medications: Ambulatory Orders Acetaminophen [Tylenol] 2 tab PO Q8H PRN 10/24/18 Albuterol Sulfate [Proair Hfa] 1 puff IH Q6H PRN 10/24/18 Atorvastatin Ca [Lipitor] 1 tab PO HS 10/24/18 Dexamethasone 5 tab PO Q72H 10/24/18 Ferrous Sulfate [Feosol] 1 tab PO DAILY 10/24/18 Fluticasone Furoate [Arnuity Ellipta] 2 puff IH DAILY 10/24/18 Gabapentin 1 tab PO TID 10/24/18 Lenalidomide [Revlimid] 1 tab PO DAILY 10/24/18 Magnesium Oxide [Magnesium] 1 tab PO DAILY 10/24/18 Memantine HCl [Namenda -] 1 tab PO Q12H 10/24/18 Metoprolol Succinate [Toprol Xl] 12.5 mg PO DAILY 10/24/18 Multivitamin [Multiple Vitamins] 1 tab PO DAILY 10/24/18 Pramipexole Di-HCl [Mirapex] 1 tab PO TID 10/24/18 Tramadol HCl 1 tab PO Q8H PRN 10/24/18 Valacyclovir HCl [Valtrex -] 1 tab PO DAILY 10/24/18 Warfarin Sodium [Coumadin] 10 mg PO HS 10/31/18 Collagenase Clostridium Hist. [Santyl -] 1 applic TP DAILY tube 02/09/19 Famotidine [Pepcid -] 20 mg PO BID tablet 02/09/19 Levothyroxine [Synthroid -] 100 mcg PO DAILY@0700 tablet 02/09/19 Family Medical History Family History: Unable to Obtain Review of Systems Unable to obtain ROS, reason: Clinical Condition Physical Examination Vital Signs: Vital Signs Temperature 98.4 F 05/14/19 19:40 Pulse Rate 82 05/15/19 04:35 Respiratory Rate 21 H 05/15/19 04:35 Blood Pressure 91/54 L 05/15/19 04:35 O2 Sat by Pulse Oximetry (%) 92 L 05/15/19 04:35 Constitutional: Yes: No Distress, Anxious, Thin Eyes: Yes: Conjunctiva Clear, PERRL HENT: Yes: WNL, Atraumatic, Normocephalic Neck: Yes: WNL, Supple, Trachea Midline Cardiovascular: Yes: Pulse Irregular, S1, S2 Respiratory: Yes: Diminished, On Nasal O2 Gastrointestinal: Yes: Normal Bowel Sounds, Soft Renal/: Yes: Incontinence Breast(s): Yes: WNL Extremities: Yes: Erythema, Other (warmth) Peripheral Pulses WNL: Yes Integumentary: Yes: Erythema, Venous Stasis Changes (with blisters with weeping to LLE anterior/medial) Wound/Incision: Yes: Other Neurological: Yes: Confusion, Cran Nerves II-XII Intact ...Motor Strength: WNL Psychiatric: Yes: Alert Labs: CBC, BMP 05/14/19 21:45 Laboratory Results - last 24 hr 05/14/19 05/14/19 05/14/19 21:45 21:45 21:45 WBC 4.9 RBC 3.62 Hgb 11.2 Hct 33.7 MCV 93.1 MCH 30.9 MCHC 33.2 RDW 19.8 H Plt Count 107 L D MPV 9.2 Absolute Neuts (auto) 4.2 Neutrophils % 84.5 H Neutrophils % (Manual) 57.0 Band Neutrophils % 20.0 Lymphocytes % 3.4 L D Lymphocytes % (Manual) 4.0 L D Monocytes % 10.2 Monocytes % (Manual) 1 L D Eosinophils % 0.1 D Eosinophils % (Manual) 0.0 D Basophils % 1.8 D Basophils % (Manual) 0.0 Nucleated RBC % 0 Metamyelocytes 8 H D Platelet Estimate Slt decrease Platelet Comment No clumping noted Anisocytosis 1+ PT with INR 57.60 H INR 4.80 H* PTT (Actin FS) 43.0 H VBG pH POC VBG pCO2 POC VBG pO2 VBG HCO3 VBG O2 Sat (Stephanie) VBG Base Excess Sodium 144 Potassium 4.4 Chloride 112 H Carbon Dioxide 26 Anion Gap 6 L BUN 20.2 H Creatinine 1.2 Est GFR (CKD-EPI)AfAm 47.39 Est GFR (CKD-EPI)NonAf 40.89 Random Glucose 103 Lactic Acid Calcium 7.7 L Total Bilirubin 1.0 AST 42 H ALT 34 Alkaline Phosphatase 39 L Creatine Kinase 433 H Creatine Kinase Index No Result Required. CK-MB (CK-2) < 1.0 Troponin I 0.03 Total Protein 4.9 L Albumin 2.2 L TSH 0.03 L Free T4 1.27 Thyroxine (T4) 7.6 Urine Color Urine Appearance Urine pH Ur Specific [place] Urine Protein Urine Glucose (UA) Urine Ketones Urine Blood Urine Nitrite Urine Bilirubin Urine Urobilinogen Ur Leukocyte Esterase Influenza A (Rapid) Influenza B (Rapid) 05/14/19 05/14/19 05/15/19 21:45 21:45 01:40 WBC RBC Hgb Hct MCV MCH MCHC RDW Plt Count MPV Absolute Neuts (auto) Neutrophils % Neutrophils % (Manual) Band Neutrophils % Lymphocytes % Lymphocytes % (Manual) Monocytes % Monocytes % (Manual) Eosinophils % Eosinophils % (Manual) Basophils % Basophils % (Manual) Nucleated RBC % Metamyelocytes Platelet Estimate Platelet Comment Anisocytosis PT with INR INR PTT (Actin FS) VBG pH 7.39 POC VBG pCO2 43.6 POC VBG pO2 < 49 H VBG HCO3 26.1 VBG O2 Sat (Stephanie) 64.1 L VBG Base Excess 1.5 Sodium Potassium Chloride Carbon Dioxide Anion Gap BUN Creatinine Est GFR (CKD-EPI)AfAm Est GFR (CKD-EPI)NonAf Random Glucose Lactic Acid 2.0 Calcium Total Bilirubin AST ALT Alkaline Phosphatase Creatine Kinase Creatine Kinase Index CK-MB (CK-2) Troponin I Total Protein Albumin TSH Free T4 Thyroxine (T4) Urine Color Yellow Urine Appearance Clear Urine pH 8.5 H D Ur Specific [place] 1.010 Urine Protein Trace Urine Glucose (UA) Negative Urine Ketones Negative Urine Blood Negative Urine Nitrite Negative Urine Bilirubin Negative Urine Urobilinogen 0.2 Ur Leukocyte Esterase Negative Influenza A (Rapid) Influenza B (Rapid) 05/15/19 01:40 WBC RBC Hgb Hct MCV MCH MCHC RDW Plt Count MPV Absolute Neuts (auto) Neutrophils % Neutrophils % (Manual) Band Neutrophils % Lymphocytes % Lymphocytes % (Manual) Monocytes % Monocytes % (Manual) Eosinophils % Eosinophils % (Manual) Basophils % Basophils % (Manual) Nucleated RBC % Metamyelocytes Platelet Estimate Platelet Comment Anisocytosis PT with INR INR PTT (Actin FS) VBG pH POC VBG pCO2 POC VBG pO2 VBG HCO3 VBG O2 Sat (Stephanie) VBG Base Excess Sodium Potassium Chloride Carbon Dioxide Anion Gap BUN Creatinine Est GFR (CKD-EPI)AfAm Est GFR (CKD-EPI)NonAf Random Glucose Lactic Acid Calcium Total Bilirubin AST ALT Alkaline Phosphatase Creatine Kinase Creatine Kinase Index CK-MB (CK-2) Troponin I Total Protein Albumin TSH Free T4 Thyroxine (T4) Urine Color Urine Appearance Urine pH Ur Specific [place] Urine Protein Urine Glucose (UA) Urine Ketones Urine Blood Urine Nitrite Urine Bilirubin Urine Urobilinogen Ur Leukocyte Esterase Influenza A (Rapid) Negative Influenza B (Rapid) Negative Intake & Output 05/12/19 05/13/19 05/14/19 05/15/19 23:59 23:59 23:59 23:59 Intake Total 1999 Balance 1999 Weight 72.575 kg Imaging - Results Chest X-ray: Report Reviewed, Image Reviewed Cat Scan: Report Reviewed, Image Reviewed EKG: Image Reviewed Problem List - Problems (1) PNA (pneumonia) Code(s): J18.9 - PNEUMONIA, UNSPECIFIED ORGANISM Qualifiers: Pneumonia type: due to unspecified organism Laterality: right Lung location: lower lobe of lung Qualified Code(s): J18.9 - Pneumonia, unspecified organism (2) Cellulitis Code(s): L03.90 - CELLULITIS, UNSPECIFIED Qualifiers: Site of cellulitis: extremity Site of cellulitis of extremity: lower extremity Laterality: right Qualified Code(s): L03.115 - Cellulitis of right lower limb (3) Afib Code(s): I48.91 - UNSPECIFIED ATRIAL FIBRILLATION (4) Anemia Code(s): D64.9 - ANEMIA, UNSPECIFIED Qualifiers: Anemia type: B12 deficiency 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 (5) HTN (hypertension) Code(s): I10 - ESSENTIAL (PRIMARY) HYPERTENSION (6) Supratherapeutic INR Code(s): R79.1 - ABNORMAL COAGULATION PROFILE (7) Multiple myeloma Code(s): C90.00 - MULTIPLE MYELOMA NOT HAVING ACHIEVED REMISSION Qualifiers: Multiple myeloma remission status: unspecified Qualified Code(s): C90.00 - Multiple myeloma not having achieved remission (8) Venous stasis ulcer Code(s): I83.009 - VARICOSE VEINS OF UNSP LOWER EXTREMITY W ULCER OF UNSP SITE; L97.909 - NON-PRS CHRONIC ULC UNSP PRT OF UNSP LOW LEG W UNSP SEVERITY (9) Type 2 diabetes mellitus with other skin ulcer Code(s): E11.622 - TYPE 2 DIABETES MELLITUS WITH OTHER SKIN ULCER; L98.499 - NON -PRESSURE CHRONIC ULCER OF SKIN OF SITES W UNSP SEVERITY (10) Wound of right lower extremity Code(s): S81.801A - UNSPECIFIED OPEN WOUND, RIGHT LOWER LEG, INITIAL ENCOUNTER Assessment/Plan This is a 88 y/o woman admitted for Pneumonia, Sepsis, Cellulitis, Acute Metabolic Encephalopathy, Supratherapuetic INR for further evaluation of their emergent condition. Plan: [id number] qSOFA 2 Chest Xray- patchy infiltrates R>L Blood Cultures-pending Urine Culture-pending Urine Legionella Initial lactic acid neg, repeat 2.8 Vancomycin, Cefepime started in ED, continue Appreciate ID consult Appreciate Vascular consult Appreciate Neurology consult Elevate extremities Neurochecks Fall Precautions Monitor CBC, BMP, INR Hold Coumadin secondary to supratherapuetic 4.8, resume when INR 2.0-3.0 FEN- gentle IVF, replete lytes, NPO DVT ppx- OOB, TEDs, Hold Coumadin Dispo: Requires Inpatient Care Visit type - Emergency Visit Emergency Visit: Yes ED Registration Date: 05/14/19 Care time: The patient presented to the Emergency Department on the above date and was hospitalized for further evaluation of their emergent condition. - New Patient This patient is new to me today: Yes Date on this admission: 05/15/19 - Critical Care Critical Care patient: No
--- NOTE | 2019-05-15 12:24 | PN ---
Progress Note (short form) - Note Progress Note: ID CONSULT DICTATED INFECTED ULCER/ CELLULITIS L LE ? PNEUMONIA R/O SEPSIS MYELOMA AWAIT C/S EMPIRIC ZOSYN/ VANCOMYCIN
[2019-05-15 12:40] LABS: BASO % 0.4 % (0-2.0); EOS % 0.6 % (0-4.5); HEMATOCRIT 37.6 % (32.4-45.2); HEMOGLOBIN 12.3 GM/dL (10.7-15.3); LYMPH % 3.6 % (8-40); MCH 30.9 pg (25.7-33.7); MCHC 32.8 g/dl (32.0-36.0); MEAN CELL VOLUME 94.1 fl (80-96); MEAN PLT VOLUME 9.4 fl (7.5-11.1); MONO % 9.3 % (3.8-10.2); NEUT % 86.1 % (42.8-82.8); PLATELET COUNT 111 K/MM3 (134-434); RDW 19.9 % (11.6-15.6)
[2019-05-15 13:09] LABS: BLOOD UREA NITROGEN 20.4 mg/dL (7-18); CALCIUM 8.4 mg/dL (8.5-10.1); CREATININE 1.2 mg/dL (0.55-1.3); POTASSIUM 3.7 mmol/L (3.5-5.1)
[2019-05-15 13:22] LABS: PROTHROMBIN TIME (PATIENT) 75.2 SEC (9.7-13.0)
[2019-05-15 13:43] LABS: INR 6.26 (0.83-1.09)
[2019-05-15 13:57] LABS: ANISOCYTOSIS 1+; MACROCYTOSIS 0; OVALOCYTE 1+; PLATELET ESTIMATE DECREASED; TEAR DROP CELLS 1+
[2019-05-15 14:02] LABS: PLATELET ESTIMATE DECREASED
[2019-05-15] MEDS: VANCOMYCIN 1 GRAM (PRE-DOCKED) 1,000 MG/250 ML BAG IVPB SCH (14:34)
--- NOTE | 2019-05-15 14:48 | CONSULT ---
- Consultation REQUESTING PROVIDER: CONSULT REQUEST: We have been asked to surgically evaluate this patient for cellulitis and leg ulcer PCP:Tacos Rowe HISTORY OF PRESENT ILLNESS: This is a 88 y/owoman from [facility] with a PMHx of Multiple Myeloma (on chemo, Velcade), Diabetes with unspecified Neuropathy, Afib (on Coumadin), HLD, DVT, GERD, Fibromyalgia. Who presents to the ED presenting to for evaluation of "hypotension, lethargic" according to transfer paperwork. Pt is disoriented and unable to provide HPI. Complaining generally of pain in lower extremities. Vascular was consulted as there was concern for possible gas present on x-rays of lower extremities. Home Medications Medication Instructions Recorded Acetaminophen [Tylenol] 2 tab PO Q8H PRN 10/24/18 Albuterol Sulfate [Proair Hfa] 1 puff IH Q6H PRN 10/24/18 Atorvastatin Ca [Lipitor] 1 tab PO HS 10/24/18 Dexamethasone 5 tab PO Q72H 10/24/18 Ferrous Sulfate [Feosol] 1 tab PO DAILY 10/24/18 Fluticasone Furoate [Arnuity 2 puff IH DAILY 10/24/18 Ellipta] Gabapentin 1 tab PO TID 10/24/18 Lenalidomide [Revlimid] 1 tab PO DAILY 10/24/18 Magnesium Oxide [Magnesium] 1 tab PO DAILY 10/24/18 Memantine HCl [Namenda -] 1 tab PO Q12H 10/24/18 Metoprolol Succinate [Toprol Xl] 12.5 mg PO DAILY 10/24/18 Multivitamin [Multiple Vitamins] 1 tab PO DAILY 10/24/18 Pramipexole Di-HCl [Mirapex] 1 tab PO TID 10/24/18 Tramadol HCl 1 tab PO Q8H PRN 10/24/18 Valacyclovir HCl [Valtrex -] 1 tab PO DAILY 10/24/18 Warfarin Sodium [Coumadin] 10 mg PO HS 10/31/18 Collagenase Clostridium Hist. 1 applic TP DAILY tube 02/09/19 [Santyl -] Famotidine [Pepcid -] 20 mg PO BID tablet 02/09/19 Levothyroxine [Synthroid -] 100 mcg PO DAILY@0700 tablet 02/09/19 Allergies Allergy/AdvReac Type Severity Reaction Status Date / Time No Known Allergies Allergy Verified 05/14/19 19:39 PHYSICAL EXAM: GENERAL: Awake, disoriented HEAD: Normal with no signs of trauma. EYES: PERRL, sclera anicteric, conjunctiva clear. NECK: Normal ROM, supple without lymphadenopathy, JVD, or masses. LOWER EXTREMITIES: dopplarable pulses b/l, warm, well-perfused. RLE shows 6cm x 12cm ulcer on medial maleolus, +2 edema. LLE shows erythema and skin tear abrasions on anterior and posterior shins, +2 edema, acutely tender to palpation. NEUROLOGICAL: Normal speech, gait not observed. PSYCH: Cooperative. Good eye contact. Appropriate mood and affect. SKIN: Warm, dry, normal turgor, no rashes or lesions noted. Vital Signs Temperature 102 F H 05/15/19 05:00 Pulse Rate 89 05/15/19 06:30 Respiratory Rate 19 05/15/19 06:30 Blood Pressure 104/52 L 05/15/19 06:30 O2 Sat by Pulse Oximetry (%) 98 05/15/19 09:00 Lab Results WBC 5.0 K/mm3 (4.0-10.0) 05/15/19 12:00 RBC 4.00 M/mm3 (3.60-5.2) 05/15/19 12:00 Hgb 12.3 GM/dL (10.7-15.3) 05/15/19 12:00 Hct 37.6 % (32.4-45.2) 05/15/19 12:00 MCV 94.1 fl (80-96) 05/15/19 12:00 MCHC 32.8 g/dl (32.0-36.0) 05/15/19 12:00 RDW 19.9 % (11.6-15.6) H 05/15/19 12:00 Plt Count 111 K/MM3 (134-434) L 05/15/19 12:00 Sodium 144 mmol/L (136-145) 05/15/19 12:00 Potassium 3.7 mmol/L (3.5-5.1) 05/15/19 12:00 Chloride 112 mmol/L (98-107) H 05/15/19 12:00 Carbon Dioxide 25 mmol/L (21-32) 05/15/19 12:00 Anion Gap 7 MMOL/L (8-16) L 05/15/19 12:00 BUN 20.4 mg/dL (7-18) H 05/15/19 12:00 Creatinine 1.2 mg/dL (0.55-1.3) 05/15/19 12:00 Random Glucose 88 mg/dL (74-106) 05/15/19 12:00 Calcium 8.4 mg/dL (8.5-10.1) L 05/15/19 12:00 INR 6.26 (0.83-1.09) H* 05/15/19 12:00 CT Lower extremity: Subcutaneous edema with no evidence of discrete abscess or subcutaneous emphysema Problem List - Problems (1) Cellulitis Assessment/Plan: Plan -no signs of necrotizing fasciitis, recommend treat cellulitis with abx as per Med/ID -Venous stasis ulcer on RLE can be treated with calcium aginate and compression dressing. LLE should have xeroform and clean dressing placed over skin tears, compression dressings when cellulitis has resolved. -pt should follow up with Wound care clinic as an outpatient Pt discussed with Dr. Zaman who agrees with plan. Code(s): L03.90 - CELLULITIS, UNSPECIFIED Qualifiers: Site of cellulitis: extremity Site of cellulitis of extremity: lower extremity Laterality: left Qualified Code(s): L03.116 - Cellulitis of left lower limb Visit type - Case Type Case Type: ED Admission - Emergency Emergency Visit: Yes ED Registration Date: 05/14/19 Care time: The patient presented to the Emergency Department on the above date and was hospitalized for further evaluation of their emergent condition. - New patient This patient is new to me today: Yes Date on this admission: 05/15/19 - Critical Care Critical Care patient: No
--- NOTE | 2019-05-15 15:42 | CONS ---
INFECTIOUS DISEASE CONSULTATION DATE OF CONSULTATION: DATE OF DICTATION: 05/15/2019 HISTORY: The patient is an 88-year-old female who was evaluated for sepsis. History was obtained from the chart. She is a prison resident. At the prison, she was noted to be increasingly lethargic with altered mentation and hypotension. She was noted to have a blood pressure of 81/53. She had been started on Keflex at the prison. Normally, the patient is awake but forgetful. Her present mental status, however, is an acute change from her baseline. She is unable to offer any complaints. She is noted to have thick oral secretions as well as bilateral lower extremity swelling and nonhealing ulcers. PAST MEDICAL HISTORY: Positive for multiple myeloma on Velcade, diabetes mellitus, hypothyroidism, atrial fibrillation, DVT, gastroesophageal reflux, hyperlipidemia, fibromyalgia, chronic leg ulcers. ALLERGIES: No known allergies. MEDICATIONS: Cefepime, clindamycin, Tylenol. Outpatient medications include Lipitor, dexamethasone, Revlimid, Namenda, Toprol, Coumadin, Pepcid, Synthroid. SOCIAL HISTORY: She resides in a correction facility. Dependent in activities of daily living. No active tobacco or alcohol use. SYSTEMS REVIEW: Neurologic: Positive for altered mental status. No loss of consciousness, seizure activity, or focal weakness. Cardiac: Negative chest pain or palpitations. Respiratory: As per HPI. Gastrointestinal: Negative vomiting or diarrhea. Genitourinary: Negative for urinary tract infection. LABORATORY DATA: White count 4.4, hematocrit 33.8, platelets 115, INR 4.8, lactic acid 2.8. Urinalysis negative. BUN 20, creatinine 1.2. Flu swab negative. Blood and urine cultures pending. Chest x-ray shows cardiomegaly, mild pulmonary vascular congestion, atelectasis versus infiltrate left base. PHYSICAL EXAMINATION: General: The patient is awake but appears confused. Vital Signs: Maximum temperature 102, blood pressure 104/52, pulse 89 and regular, respirations 19 per minute. HEENT: Sclerae anicteric. Positive oral secretions. Heart: Sounds S1, S2. Lungs: Grossly clear. Poor inspiratory effort. Abdomen: Soft, nontender. Extremities: Examination of lower extremities, bilateral lower extremity edema. There is erythema and warmth present on the left lower extremity with a large, shallow-based ulceration with malodorous, serous drainage. IMPRESSION: 1. Infected leg ulcer/cellulitis, left lower extremity. 2. Possible left lower lobe pneumonia. 3. Rule out sepsis secondary to skin or lung source. 4. History of myeloma on therapy. 5. Thrombocytopenia. 6. Lactic acidosis. 7. Coagulopathy. PLAN: Await sepsis workup. Empiric antibiotic coverage for skin versus lung source of infection with vancomycin and Zosyn. Surgical evaluation for wound care. We will follow. Thank you for the kind referral. MADALYN COMBS M.D. [id number]
[2019-05-15] MEDS ORDERED: PHYTONADIONE 5 MG TABLET PO ONE (16:18)
[2019-05-15] MEDS ORDERED: PT OWN MED DRAWER 7, Y5N ONE ×2 (16:32→22:43)
[2019-05-15] MEDS ORDERED: ALBUTEROL SO4 HFA INHALER IH PRN (17:12)
--- NOTE | 2019-05-15 17:19 | PN ---
Progress Note, Physician Chief Complaint: AMS Pneumonia History of Present Illness: Previous notes and events reviewed patient is more awake and verbal NAD INR 6.26 no leukocytosis afebrile BC prelim positive x 1 - Current Medication List Current Medications: Active Medications Vancomycin HCl (Vancomycin (Pre-Docked)) 1,000 mg in 250 mls @ 166.667 mls/hr IVPB Q24H [facility]; Protocol Last Admin: 05/15/19 14:34 Dose: 166.667 mls/hr Piperacillin Sod/Tazobactam (Sod 3.375 gm/ Dextrose) 50 mls @ 100 mls/hr IVPB Q8H-IV [facility]; Protocol - Objective Vital Signs: Vital Signs Temperature 102 F H 05/15/19 05:00 Pulse Rate 89 05/15/19 06:30 Respiratory Rate 19 05/15/19 06:30 Blood Pressure 104/52 L 05/15/19 06:30 O2 Sat by Pulse Oximetry (%) 98 05/15/19 14:44 Constitutional: Yes: No Distress, Calm Eyes: Yes: Conjunctiva Clear HENT: Yes: Atraumatic Cardiovascular: Yes: Regular Rate and Rhythm Respiratory: Yes: Regular, Diminished, On Nasal O2 Gastrointestinal: Yes: Normal Bowel Sounds, Soft Genitourinary: Yes: Incontinence Musculoskeletal: Yes: Muscle Weakness Extremities: Yes: WNL Edema: Yes Wound/Incision: Yes: Dressing Dry and Intact Neurological: Yes: Alert, Confusion Psychiatric: Yes: Alert Labs: CBC, BMP 05/15/19 12:00 05/15/19 12:00 INR, PTT INR 6.26 (0.83-1.09) H* 05/15/19 12:00 Microbiology 05/14/19 21:45 Blood - Peripheral Venous Blood Culture - Preliminary Pending Organism Problem List - Problems (1) Altered mental state Assessment/Plan: -Head CT scan shows no CT evidence of acute intracranial pathology -Neuro checks q4h -possibly secondary to infection Code(s): R41.82 - ALTERED MENTAL STATUS, UNSPECIFIED Qualifiers: Altered mental status type: disorientation Qualified Code(s): R41.0 - Disorientation, unspecified (2) PNA (pneumonia) Assessment/Plan: -CXR shows cardiomegaly with mild pulmonary venous congestion vs chronic interstitial lung disease, interval mild atelectatic changes vs infiltrates in left lung base -Pulmonary consult -BC prelim positive x 1 -no leukocytosis -afebrile -Vancomycin and Zosyn -LA 2.8 -bronchodilators -keep SpO2 >90% -O2 via NC -Influenza neg Code(s): J18.9 - PNEUMONIA, UNSPECIFIED ORGANISM Qualifiers: Pneumonia type: due to unspecified organism Laterality: right Lung location: lower lobe of lung Qualified Code(s): J18.9 - Pneumonia, unspecified organism (3) Afib Assessment/Plan: -Coumadin on hold -INR 6.26 -monitor INR daily -therapeutic goal 2-3 Code(s): I48.91 - UNSPECIFIED ATRIAL FIBRILLATION (4) CHF (congestive heart failure) Assessment/Plan: -Furosemide q48h -daily weights -1L fluid restriction -strict I&O -low Na diet Code(s): I50.9 - HEART FAILURE, UNSPECIFIED (5) Hypothyroidism Assessment/Plan: -Levothyroxine Code(s): E03.9 - HYPOTHYROIDISM, UNSPECIFIED (6) Multiple myeloma Assessment/Plan: -Oncology consult -Revlimid Code(s): C90.00 - MULTIPLE MYELOMA NOT HAVING ACHIEVED REMISSION Qualifiers: Multiple myeloma remission status: unspecified Qualified Code(s): C90.00 - Multiple myeloma not having achieved remission (7) Supratherapeutic INR Assessment/Plan: -Coumadin on hold -INR 6.26 -monitor INR daily -therapeutic goal 2-3 -monitor INR daily -Vitamin K 5mg PO x 1 dose Code(s): R79.1 - ABNORMAL COAGULATION PROFILE (8) Venous stasis ulcer Assessment/Plan: -Vascular on board -daily dressing change -RLE treat with calcium alginare and compression dressing -LLE treat with xeroform and compression dressing Code(s): I83.009 - VARICOSE VEINS OF UNSP LOWER EXTREMITY W ULCER OF UNSP SITE; L97.909 - NON-PRS CHRONIC ULC UNSP PRT OF UNSP LOW LEG W UNSP SEVERITY Assessment/Plan see problem list
[2019-05-15] MEDS ORDERED: ALBUTEROL SO4 0.083% IH SOL 2.5 MG/3 ML VIAL.NEB. NEB PRN (17:20)
[2019-05-15] MEDS: PIPERACILLIN/TAZOB 3.375 GM 3.375 GM in DEXTROSE 5%-WATER - 50 ML IVPB SCH (17:50)
[2019-05-15] MEDS ORDERED: PIPERACILLIN/TAZOBACTAM 3.375 GM VIAL IVPB ONE (17:51)
[2019-05-15] MEDS ORDERED: DEXTROSE 5%-WATER - 50 ML IVPB ONE (17:52)
--- NOTE | 2019-05-15 20:49 | CONSULT ---
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: Yes: Dementia, Vertigo Cardio/Vascular: Yes: AFIB, Deep Vein Thrombosis, HTN, Hyperlipdemia Gastrointestinal: Yes: GERD Endocrine: Yes: Diabetes Mellitus Additional Medical History: chronic leg wound RLE - Past Surgical History Past Surgical History: Yes: Hysterectomy - Alcohol/Substance Use Hx Alcohol Use: No History of Substance Use: reports: None - Smoking History Smoking history: Former smoker Have you smoked in the past 12 months: No Aproximately how many cigarettes per day: 0 If you are a former smoker, when did you quit?: years ago - Social History Usual Living Arrangement: [facility] ADL: Support Services 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 History of Recent Travel: No Home Medications - Allergies Allergies/Adverse Reactions: Allergies Allergy/AdvReac Type Severity Reaction Status Date / Time No Known Allergies Allergy Verified 05/14/19 19:39 - Home Medications Home Medications: Ambulatory Orders Acetaminophen [Tylenol] 2 tab PO Q8H PRN 10/24/18 Albuterol Sulfate [Proair Hfa] 1 puff IH Q6H PRN 10/24/18 Atorvastatin Ca [Lipitor] 1 tab PO HS 10/24/18 Dexamethasone 5 tab PO ASDIR 10/24/18 Ferrous Sulfate [Feosol] 1 tab PO DAILY 10/24/18 Fluticasone Furoate [Arnuity Ellipta] 2 puff IH DAILY 10/24/18 Gabapentin 1 tab PO TID 10/24/18 Lenalidomide [Revlimid] 1 tab PO DAILY 10/24/18 Magnesium Oxide [Magnesium] 1 tab PO DAILY 10/24/18 Memantine HCl [Namenda -] 1 tab PO Q12H 10/24/18 Metoprolol Succinate [Toprol Xl] 25 mg PO DAILY 10/24/18 Multivitamin [Multiple Vitamins] 1 tab PO DAILY 10/24/18 Pramipexole Di-HCl [Mirapex] 1 tab PO TID 10/24/18 Tramadol HCl 1 tab PO Q8H PRN 10/24/18 Valacyclovir HCl [Valtrex -] 1 tab PO DAILY 10/24/18 Warfarin Sodium [Coumadin] 6 mg PO HS 10/31/18 Famotidine [Pepcid -] 20 mg PO BID tablet 02/09/19 Levothyroxine [Synthroid -] 100 mcg PO DAILY@0700 tablet 02/09/19 Aa/Hydrolyzed Collagen, Whey [Lps 15-30 Liquid] 30 ml PO DAILY 05/15/19 Ascorbic Acid [Vitamin C] 500 mg PO DAILY 05/15/19 Cephalexin Monohydrate [Keflex -] 500 mg PO BID 05/15/19 Furosemide [Lasix -] 20 mg PO Q48H 05/15/19 Lactobacillus Acidophilus [Acidophilus] 1 each PO ASDIR 05/15/19 Zinc Oxide 20% Topical Oint 1 applic TP Q8H 05/15/19 Physical Exam Vital Signs: Vital Signs Temperature 102 F H 05/15/19 05:00 Pulse Rate 108 H 05/15/19 20:32 Respiratory Rate 20 05/15/19 20:32 Blood Pressure 126/60 05/15/19 20:32 O2 Sat by Pulse Oximetry (%) 98 05/15/19 14:44 Labs: CBC, BMP 05/15/19 12:00 05/15/19 12:00 Assessment/Plan Patient seen and examined Well known to me x years. 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 Has been treated with velcade, decadron, and revlimid. Has extensive skeletal mets. Patient presents febrile, confused Has LE cellulitis and chronic ulcer of RLE which has been followed at Wound care. Currently , knows my name, not the place or year. Last Vital Signs Temp Pulse Resp BP Pulse Ox 102 F H 108 H 20 126/60 98 05/15/19 05:00 05/15/19 20:32 05/15/19 20:32 05/15/19 20:32 05/15/19 14:44 HEENT: EBEN, EOM Intact Oropharynx: No thrush, No mucositis Neck: Supple Nodes: Without adenopathy Breasts: Without masses Cor: RSR, No murmurs, No gallops Lungs: Clear to P&A Abd: Soft, Normal bowel sounds, No organomegaly Ext:LE edema with ulcer right foot and erythema /stasis chnages. LLE dressed Skin: No rashes, Integument intact CBC, BMP 05/15/19 12:00 05/15/19 12:00 Current Medications Generic Name Dose Route Start Last Admin Trade Name Freq PRN Reason Stop Dose Admin Acetaminophen 650 mg 05/15/19 17:12 Tylenol - PO Q8H PRN PAIN LEVEL 4 - 6 Albuterol Sulfate 1 amp 05/15/19 17:20 Ventolin 0.083% Nebulizer Soln - NEB Q6H PRN SHORT OF BREATH/WHEEZING Amino Acids 30 ml 05/16/19 08:00 Prosource No Carb Liquid Pkt PO DAILY@0800 [facility] Ascorbic Acid 500 mg 05/16/19 10:00 Vitamin C - PO DAILY [facility] Atorvastatin Calcium 40 mg 05/15/19 22:00 Lipitor - PO HS [facility] Famotidine 20 mg 05/15/19 22:00 Pepcid - PO BID [facility] Ferrous Sulfate 325 mg 05/16/19 10:00 Feosol - PO DAILY [facility] Furosemide 20 mg 05/16/19 10:00 Lasix - PO Q2D [facility] Vancomycin HCl 1,000 mg in 250 mls @ 166.667 mls/hr 05/15/19 12:30 05/15/19 14:34 Vancomycin (Pre-Docked) IVPB 166.667 mls/hr Q24H [facility] Administration Protocol Piperacillin Sod/Tazobactam 50 mls @ 100 mls/hr 05/15/19 18:00 05/15/19 17:50 Sod 3.375 gm/ Dextrose IVPB 100 mls/hr Q8H-IV [facility] Administration Protocol Levothyroxine Sodium 100 mcg 05/16/19 07:00 Synthroid - PO DAILY@0700 [facility] Magnesium Oxide 400 mg 05/16/19 10:00 Mag-Ox - PO DAILY [facility] Memantine 5 mg 05/15/19 22:00 Namenda - PO BID [facility] Metoprolol Succinate 25 mg 05/16/19 10:00 Toprol Xl - PO DAILY [facility] Multi-Ingredient Ointment 1 applic 05/15/19 22:00 Zinc Oxide TP TID [facility] Multivitamins/Minerals/Vitamin C 1 tab 05/16/19 10:00 Tab-A-Vit - PO DAILY [facility] Non-Formulary Medication 2 puff 05/16/19 10:00 Fluticasone Furoate [Arnuity Ellipta] IH DAILY [facility] Non-Formulary Medication 1 tab 05/15/19 22:00 Gabapentin [Gabapentin] PO TID [facility] Non-Formulary Medication 1 tab 05/16/19 10:00 Lenalidomide [Revlimid] PO DAILY [facility] Pramipexole Dihydrochloride 0.25 mg 05/15/19 22:00 Mirapex - PO TID [facility] Tramadol HCl 50 mg 05/15/19 17:12 Ultram - PO Q8H PRN PAIN LEVEL 1-5 Impression: Febrile with confusion - toxic metabolic LE cellulitis / ulcer + blood culture Multiple myeloma on VDR improved with decreasing in paraprotein Neuropathy HBP Hypthyroidism Hx DVT A/C HPL Patient previously in office is minimally confused and hard of hearing. This is a GROSS change from her baseline and suspect it is a toxic metabolic reaction to sepsis. As part of VDR protocol she has been on decadron 20 mg --2 x per week. She will require steroids to prevent adrenal suppression.
[2019-05-15] MEDS: ATORVASTATIN CA 40 MG TABLET (FP) PO SCH (22:39)
[2019-05-15] MEDS: PRAMIPEXOLE DIHYDROCHLORIDE 0.25 MG TABLET PO SCH (22:39)
[2019-05-15] MEDS: MEMANTINE HCL 5 MG TABLET (UD) PO SCH (22:39)
[2019-05-15] MEDS: ZINC OXIDE 20% TOPICAL OINTMENT 30 GM TUBE TP SCH (22:52)
[2019-05-15] MEDS: FAMOTIDINE 20 MG TABLET PO SCH (22:55)
[2019-05-16] MEDS ORDERED: PIPERACILLIN/TAZOBACTAM 3.375 GM VIAL IVPB ONE ×3 (01:37→17:05)
[2019-05-16] MEDS ORDERED: DEXTROSE 5%-WATER - 50 ML IVPB ONE ×3 (01:37→17:06)
[2019-05-16] MEDS: PIPERACILLIN/TAZOB 3.375 GM 3.375 GM in DEXTROSE 5%-WATER - 50 ML IVPB SCH ×3 (01:48→17:27)
[2019-05-16] MEDS ORDERED: ACETAMINOPHEN 1000 MG/100 ML VIAL (NON FORMULARY) IVPB ONE (05:53)
[2019-05-16] MEDS: ZINC OXIDE 20% TOPICAL OINTMENT 30 GM TUBE TP SCH ×3 (06:16→21:52)
[2019-05-16] MEDS: LEVOTHYROXINE NA 100 MCG TABLET (FP) PO SCH (06:16)
[2019-05-16] MEDS: PRAMIPEXOLE DIHYDROCHLORIDE 0.25 MG TABLET PO SCH ×3 (06:16→21:51)
[2019-05-16 07:45] LABS: HEMATOCRIT 28.9 % (32.4-45.2); HEMOGLOBIN 9.6 GM/dL (10.7-15.3); MCH 30.6 pg (25.7-33.7); MCHC 33.2 g/dl (32.0-36.0); MEAN CELL VOLUME 92.1 fl (80-96); MEAN PLT VOLUME 8.7 fl (7.5-11.1); PLATELET COUNT 91 K/MM3 (134-434); RBC 3.14 M/mm3 (3.60-5.2); RDW 19.8 % (11.6-15.6); WHITE BLOOD COUNT 5.5 K/mm3 (4.0-10.0)
--- NOTE | 2019-05-16 07:56 | CON.PULM ---
Consult Consult Specialty:: PULM/CCM Referred by:: TIAGO Reason for Consultation:: Abnormal CXR - History of Present Illness History of Present Illness: 88 F, SNF resident, Multiple Myeloma (on chemo, Velcade), diabetes with unspecified neuropathy, Afib (on Coumadin), HLD, DVT, GERD, and Fibromyalgia. Admitted via the ER due to lethargy and hypotension. Patient in not able to provide an accurate history at this time. She denies CP or SOB. She does report pain in lower extremities. CXR: appears like chronic changes with a LLL infiltrate versus atelectasis. 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: Dementia, Vertigo Cardio/Vascular: Yes: AFIB, Deep Vein Thrombosis, HTN, Hyperlipdemia Gastrointestinal: Yes: GERD Endocrine: Yes: Diabetes Mellitus Additional Medical History: chronic leg wound RLE - Past Surgical History Past Surgical History: Yes: Hysterectomy - Alcohol/Substance Use Hx Alcohol Use: No History of Substance Use: reports: None - Smoking History Smoking history: Former smoker Have you smoked in the past 12 months: No Aproximately how many cigarettes per day: 0 If you are a former smoker, when did you quit?: years ago - Social History Usual Living Arrangement: Snf ADL: Support Services 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 History of Recent Travel: No Home Medications - Allergies Allergies/Adverse Reactions: Allergies Allergy/AdvReac Type Severity Reaction Status Date / Time No Known Allergies Allergy Verified 05/14/19 19:39 - Home Medications Home Medications: Ambulatory Orders Acetaminophen [Tylenol] 2 tab PO Q8H PRN 10/24/18 Albuterol Sulfate [Proair Hfa] 1 puff IH Q6H PRN 10/24/18 Atorvastatin Ca [Lipitor] 1 tab PO HS 10/24/18 Dexamethasone 5 tab PO ASDIR 10/24/18 Ferrous Sulfate [Feosol] 1 tab PO DAILY 10/24/18 Fluticasone Furoate [Arnuity Ellipta] 2 puff IH DAILY 10/24/18 Gabapentin 1 tab PO TID 10/24/18 Lenalidomide [Revlimid] 1 tab PO DAILY 10/24/18 Magnesium Oxide [Magnesium] 1 tab PO DAILY 10/24/18 Memantine HCl [Namenda -] 1 tab PO Q12H 10/24/18 Metoprolol Succinate [Toprol Xl] 25 mg PO DAILY 10/24/18 Multivitamin [Multiple Vitamins] 1 tab PO DAILY 10/24/18 Pramipexole Di-HCl [Mirapex] 1 tab PO TID 10/24/18 Tramadol HCl 1 tab PO Q8H PRN 10/24/18 Valacyclovir HCl [Valtrex -] 1 tab PO DAILY 10/24/18 Warfarin Sodium [Coumadin] 6 mg PO HS 10/31/18 Famotidine [Pepcid -] 20 mg PO BID tablet 02/09/19 Levothyroxine [Synthroid -] 100 mcg PO DAILY@0700 tablet 02/09/19 Aa/Hydrolyzed Collagen, Whey [Lps 15-30 Liquid] 30 ml PO DAILY 05/15/19 Ascorbic Acid [Vitamin C] 500 mg PO DAILY 05/15/19 Cephalexin Monohydrate [Keflex -] 500 mg PO BID 05/15/19 Furosemide [Lasix -] 20 mg PO Q48H 05/15/19 Lactobacillus Acidophilus [Acidophilus] 1 each PO ASDIR 05/15/19 Zinc Oxide 20% Topical Oint 1 applic TP Q8H 05/15/19 Review of Systems Unable to obtain ROS, reason: Not able to provide Physical Exam Vital Sings: Vital Signs Temperature 99.2 F 05/16/19 05:36 Pulse Rate 98 H 05/16/19 05:36 Respiratory Rate 18 05/16/19 05:36 Blood Pressure 129/58 L 05/16/19 05:36 O2 Sat by Pulse Oximetry (%) 98 05/15/19 21:00 Constitutional: Yes: No Distress, Thin Eyes: Yes: Conjunctiva Clear, EOM Intact HENT: Yes: Atraumatic, Normocephalic Neck: Yes: Supple, Trachea Midline Cardiovascular: Yes: Pulse Irregular Respiratory: Yes: Accessory Muscle Use, Diminished, On Nasal O2, Rhonchi. No: Rales, SOB, SOB on Exertion, Stridor, Tachypnea, Wheezes ...Inspection: Yes: WNL ...Clubbing: No Gastrointestinal: Yes: Normal Bowel Sounds, Soft Renal/: Yes: WNL Musculoskeletal: Yes: WNL Extremities: Yes: Other (ulcer ) Edema: No Peripheral Pulses WNL: Yes Integumentary: Yes: Erythema, Venous Stasis Changes, Other (ulcer) Neurological: Yes: Confusion Imaging - Results Chest X-ray: Report Reviewed, Image Reviewed Problem List - Problems (1) Atelectasis Code(s): J98.11 - ATELECTASIS (2) Sepsis Code(s): A41.9 - SEPSIS, UNSPECIFIED ORGANISM (3) Altered mental state Code(s): R41.82 - ALTERED MENTAL STATUS, UNSPECIFIED Qualifiers: Altered mental status type: disorientation Qualified Code(s): R41.0 - Disorientation, unspecified (4) PNA (pneumonia) Code(s): J18.9 - PNEUMONIA, UNSPECIFIED ORGANISM Qualifiers: Pneumonia type: due to unspecified organism Laterality: right Lung location: lower lobe of lung Qualified Code(s): J18.9 - Pneumonia, unspecified organism (5) Afib Code(s): I48.91 - UNSPECIFIED ATRIAL FIBRILLATION (6) Anemia Code(s): D64.9 - ANEMIA, UNSPECIFIED Qualifiers: Anemia type: B12 deficiency 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 (7) CHF (congestive heart failure) Code(s): I50.9 - HEART FAILURE, UNSPECIFIED (8) Cellulitis Code(s): L03.90 - CELLULITIS, UNSPECIFIED Qualifiers: Site of cellulitis: extremity Site of cellulitis of extremity: lower extremity Laterality: left Qualified Code(s): L03.116 - Cellulitis of left lower limb (9) Cough Code(s): R05 - COUGH (10) HTN (hypertension) Code(s): I10 - ESSENTIAL (PRIMARY) HYPERTENSION (11) Hypotension Code(s): I95.9 - HYPOTENSION, UNSPECIFIED (12) Multiple myeloma Code(s): C90.00 - MULTIPLE MYELOMA NOT HAVING ACHIEVED REMISSION Qualifiers: Multiple myeloma remission status: unspecified Qualified Code(s): C90.00 - Multiple myeloma not having achieved remission (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 Assessment/Plan Patient appears to have received adequate volume resuscitation in the ER as her hemodynamics have been stable ABX per ID O2 as needed Follow cultures May need to hold lasix Local wound care per surgery Aspiration precautions Will follow Thank you. Dr Ohara
[2019-05-16 08:23] LABS: PROTHROMBIN TIME (PATIENT) 97.2 SEC (9.7-13.0)
[2019-05-16 08:28] LABS: ALBUMIN 1.6 g/dl (3.4-5.0); BILIRUBIN,TOTAL 0.9 mg/dL (0.2-1); BLOOD UREA NITROGEN 20.2 mg/dL (7-18); CALCIUM 7.7 mg/dL (8.5-10.1); CREATININE 1.2 mg/dL (0.55-1.3); POTASSIUM 3.2 mmol/L (3.5-5.1); TOT PROT 4.2 g/dl (6.4-8.2)
[2019-05-16] MEDS: FERROUS SO4 325 MG TABLET (FP) PO SCH ×2 (09:05→11:24)
[2019-05-16] MEDS: AMINO ACIDS/PROTEIN HYDROLYS 30 ML LIQUID.PKT PO SCH (09:05)
[2019-05-16 09:06] LABS: INR 8.07 (0.83-1.09)
[2019-05-16] MEDS ORDERED: POTASSIUM CHLORIDE TABS 10 MEQ TABLET.ER (FP) PO ONE (10:03)
[2019-05-16] MEDS ORDERED: PHYTONADIONE 10 MG/1 ML AMP SQ ONE (10:09)
--- NOTE | 2019-05-16 10:09 | PN ---
Progress Note (short form) - Note Progress Note: ADDENDUM: INR 8 CONTINUE TO HOLD COUMADIN VIT K GIVEN YESTERDAY Problem List - Problems (1) Altered mental state Code(s): R41.82 - ALTERED MENTAL STATUS, UNSPECIFIED Qualifiers: Altered mental status type: disorientation Qualified Code(s): R41.0 - Disorientation, unspecified (2) Atelectasis Code(s): J98.11 - ATELECTASIS (3) PNA (pneumonia) Code(s): J18.9 - PNEUMONIA, UNSPECIFIED ORGANISM Qualifiers: Pneumonia type: due to unspecified organism Laterality: right Lung location: lower lobe of lung Qualified Code(s): J18.9 - Pneumonia, unspecified organism (4) Sepsis Code(s): A41.9 - SEPSIS, UNSPECIFIED ORGANISM (5) Afib Code(s): I48.91 - UNSPECIFIED ATRIAL FIBRILLATION (6) Anemia Code(s): D64.9 - ANEMIA, UNSPECIFIED Qualifiers: Anemia type: B12 deficiency 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 (7) Headache Code(s): R51 - HEADACHE Qualifiers: Headache type: other headache syndrome Qualified Code(s): G44.89 - Other headache syndrome (8) Hypothyroidism Code(s): E03.9 - HYPOTHYROIDISM, UNSPECIFIED (9) Leg pain, left Code(s): M79.605 - PAIN IN LEFT LEG (10) Leg pain, right Code(s): M79.604 - PAIN IN RIGHT LEG (11) Multiple myeloma Code(s): C90.00 - MULTIPLE MYELOMA NOT HAVING ACHIEVED REMISSION Qualifiers: Multiple myeloma remission status: unspecified Qualified Code(s): C90.00 - Multiple myeloma not having achieved remission (12) Thyroid cancer Code(s): C73 - MALIGNANT NEOPLASM OF THYROID GLAND (13) Pneumonia Code(s): J18.9 - PNEUMONIA, UNSPECIFIED ORGANISM (14) Cellulitis of leg, right Code(s): L03.115 - CELLULITIS OF RIGHT LOWER LIMB (15) Respiratory infection Code(s): J98.8 - OTHER SPECIFIED RESPIRATORY DISORDERS
--- NOTE | 2019-05-16 10:09 | PN ---
Progress Note, Physician Chief Complaint: AWAKE ALERT FEELS BETTER C/O THIRST AND WANTS TO EAT - Current Medication List Current Medications: Active Medications Acetaminophen (Tylenol -) 650 mg PO Q8H PRN PRN Reason: PAIN LEVEL 4 - 6 Albuterol Sulfate (Ventolin 0.083% Nebulizer Soln -) 1 amp NEB Q6H PRN PRN Reason: SHORT OF BREATH/WHEEZING Amino Acids (Prosource No Carb Liquid Pkt) 30 ml PO DAILY@0800 [facility] Last Admin: 05/16/19 09:05 Dose: Not Given Ascorbic Acid (Vitamin C -) 500 mg PO DAILY [facility] Atorvastatin Calcium (Lipitor -) 40 mg PO HS [facility] Last Admin: 05/15/19 22:39 Dose: Not Given Famotidine (Pepcid -) 20 mg PO BID [facility] Last Admin: 05/15/19 22:55 Dose: Not Given Ferrous Sulfate (Feosol -) 325 mg PO DAILY [facility] Last Admin: 05/16/19 09:05 Dose: Not Given Furosemide (Lasix -) 20 mg PO Q2D [facility] Vancomycin HCl (Vancomycin (Pre-Docked)) 1,000 mg in 250 mls @ 166.667 mls/hr IVPB Q24H [facility]; Protocol Last Admin: 05/15/19 14:34 Dose: 166.667 mls/hr Piperacillin Sod/Tazobactam (Sod 3.375 gm/ Dextrose) 50 mls @ 100 mls/hr IVPB Q8H-IV [facility]; Protocol Last Admin: 05/16/19 01:48 Dose: 100 mls/hr Levothyroxine Sodium (Synthroid -) 100 mcg PO DAILY@0700 [facility] Last Admin: 05/16/19 06:16 Dose: Not Given Magnesium Oxide (Mag-Ox -) 400 mg PO DAILY [facility] Memantine (Namenda -) 5 mg PO BID [facility] Last Admin: 05/15/19 22:39 Dose: Not Given Metoprolol Succinate (Toprol Xl -) 25 mg PO DAILY [facility] Multi-Ingredient Ointment (Zinc Oxide) 1 applic TP TID [facility] Last Admin: 05/16/19 06:16 Dose: 1 applic Multivitamins/Minerals/Vitamin C (Tab-A-Vit -) 1 tab PO DAILY [facility] Non-Formulary Medication (Fluticasone Furoate [Arnuity Ellipta]) 2 puff IH DAILY [facility] Non-Formulary Medication (Gabapentin [Gabapentin]) 1 tab PO TID [facility] Non-Formulary Medication (Lenalidomide [Revlimid]) 1 tab PO DAILY [facility] Potassium Chloride (K-Dur -) 40 meq PO ONCE ONE Stop: 05/16/19 10:04 Pramipexole Dihydrochloride (Mirapex -) 0.25 mg PO TID [facility] Last Admin: 05/16/19 06:16 Dose: Not Given Tramadol HCl (Ultram -) 50 mg PO Q8H PRN PRN Reason: PAIN LEVEL 1-5 - Objective Vital Signs: Vital Signs Temperature 99.2 F 05/16/19 05:36 Pulse Rate 98 H 05/16/19 05:36 Respiratory Rate 18 05/16/19 05:36 Blood Pressure 129/58 L 05/16/19 05:36 O2 Sat by Pulse Oximetry (%) 98 05/15/19 21:00 Constitutional: Yes: Mild Distress Cardiovascular: Yes: Regular Rate and Rhythm Respiratory: Yes: Diminished Gastrointestinal: Yes: Soft Genitourinary: Yes: Incontinence Musculoskeletal: Yes: Muscle Weakness Edema: No Wound/Incision: Yes: Open to air Neurological: Yes: Pre-Existing Deficit, Tingling ...Motor Strength: LLE, RLE Psychiatric: Yes: Other Labs: CBC, BMP 05/16/19 06:40 05/16/19 06:40 INR, PTT INR 8.07 (0.83-1.09) H* 05/16/19 06:40 Problem List - Problems (1) Altered mental state Code(s): R41.82 - ALTERED MENTAL STATUS, UNSPECIFIED Qualifiers: Altered mental status type: disorientation Qualified Code(s): R41.0 - Disorientation, unspecified (2) Atelectasis Code(s): J98.11 - ATELECTASIS (3) PNA (pneumonia) Code(s): J18.9 - PNEUMONIA, UNSPECIFIED ORGANISM Qualifiers: Pneumonia type: due to unspecified organism Laterality: right Lung location: lower lobe of lung Qualified Code(s): J18.9 - Pneumonia, unspecified organism (4) Sepsis Code(s): A41.9 - SEPSIS, UNSPECIFIED ORGANISM (5) Afib Code(s): I48.91 - UNSPECIFIED ATRIAL FIBRILLATION (6) Anemia Code(s): D64.9 - ANEMIA, UNSPECIFIED Qualifiers: Anemia type: B12 deficiency 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 (7) Headache Code(s): R51 - HEADACHE Qualifiers: Headache type: other headache syndrome Qualified Code(s): G44.89 - Other headache syndrome (8) Hypothyroidism Code(s): E03.9 - HYPOTHYROIDISM, UNSPECIFIED (9) Leg pain, left Code(s): M79.605 - PAIN IN LEFT LEG (10) Leg pain, right Code(s): M79.604 - PAIN IN RIGHT LEG (11) Multiple myeloma Code(s): C90.00 - MULTIPLE MYELOMA NOT HAVING ACHIEVED REMISSION Qualifiers: Multiple myeloma remission status: unspecified Qualified Code(s): C90.00 - Multiple myeloma not having achieved remission (12) Thyroid cancer Code(s): C73 - MALIGNANT NEOPLASM OF THYROID GLAND (13) Pneumonia Code(s): J18.9 - PNEUMONIA, UNSPECIFIED ORGANISM (14) Cellulitis of leg, right Code(s): L03.115 - CELLULITIS OF RIGHT LOWER LIMB (15) Respiratory infection Code(s): J98.8 - OTHER SPECIFIED RESPIRATORY DISORDERS Assessment/Plan SWALLOW EVAL ORDERED R/O ASPIRATIONS ON IV ABX PER ID NPO FOR NOW EXCEPT MEDS WOND CARE SUPPLEMENT KCL PT EVAL MENTAL STATUS EVAL NEUROLOGY APPRECIATED LIKELY ALL TOXIC METABOLIC ENCEPHALOPATHY
--- NOTE | 2019-05-16 10:46 | EKG ---
Test Reason : Blood Pressure : / mmHG Vent. Rate : 096 BPM Atrial Rate : 096 BPM P-R Int : 126 ms QRS Dur : 086 ms QT Int : 348 ms P-R-T Axes : 058 004 049 degrees QTc Int : 439 ms NORMAL SINUS RHYTHM NORMAL ECG WHEN COMPARED WITH ECG OF 06-FEB-2019 12:25, PREMATURE ATRIAL COMPLEXES ARE NO LONGER PRESENT VENT. RATE HAS INCREASED BY 42 BPM Confirmed by GENEVA GUERRERO, LINDA ([id number]) on 05/16/2019 10:46:01 AM Referred By: Confirmed By:LINDA BEAN MD
[2019-05-16] MEDS: MEMANTINE HCL 5 MG TABLET (UD) PO SCH ×2 (11:23→21:50)
[2019-05-16] MEDS: ASCORBIC ACID 500 MG TABLET (FP) PO SCH (11:23)
[2019-05-16] MEDS: metoPROLOL SUCCINATE 25 MG TAB.SR.24H (FP) PO SCH (11:23)
[2019-05-16] MEDS: MAGNESIUM OXIDE 400 MG TABLET (FP) PO SCH (11:23)
[2019-05-16] MEDS: FUROSEMIDE 20 MG TABLET (FP) PO SCH (11:24)
[2019-05-16] MEDS: MULTIVITAMINS (DAILY MVI) TABLET (FP) PO SCH (11:25)
[2019-05-16] MEDS: FAMOTIDINE 20 MG TABLET PO SCH ×2 (11:25→21:51)
--- NOTE | 2019-05-16 12:15 | CONSULT ---
Admitting History and Physical - Primary Care Physician PCP: Tacos Rowe - Admission History of Present Illness: 88 F with Multiple Myeloma , diabetes , Afib , HLD, DVT, GERD, and Fibromyalgia , admitted from [place] with lethargy and hypotension. CXR: per Pulmonary appears like chronic changes with a LLL infiltrate versus atelectasis. This is my first consult with this pt. Pt was on a reg diet/thin liquids on NH. - Past Medical History ACID CLEANER: Yes: Dementia, Vertigo Cardiovascular: Yes: AFIB, Deep Vein Thrombosis, HTN, Hyperlipdemia Gastrointestinal: Yes: GERD Heme/Onc: Yes: Other (multiple myeloma) Endocrine: Yes: Diabetes Mellitus - Past Surgical History Past Surgical History: Yes: Hysterectomy - Smoking History Smoking history: Former smoker Have you smoked in the past 12 months: No Aproximately how many cigarettes per day: 0 If you are a former smoker, when did you quit?: years ago - Alcohol/Substance Use Hx Alcohol Use: No History of Substance Use: reports: None - Social History ADL: Support Services 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 History of Recent Travel: No History - Admission Reason For Visit: ALTERED MENTAL STATUS, PNEUMONIA - Diagnostics X-ray: Report Reviewed CT Scan: Report Reviewed - General Mental Status: Alert and Oriented (hospital, not month,year), Awake and Alert, Able to Follow Commands, Forgetful, Vague, Intermittently Confused Attention: Intact Ability to Follow Directions: Good Head/Neck Control: WFL - Hearing Hearing: Impaired Speech Evaluation - Communication Primary Language: BELARUSIAN Communication: Yes: Within Normal Limits Oral Expression Ability: Yes: No Impairment - Speech Production Able to Make Needs Known: Yes: WNL Intelligibility: Yes: WNL - Speech Characteristics Voice Loudness: Normal Voice Pitch: Yes: Normal Voice Phonatory-based Quality: Yes: Normal Speech Pattern: Normal Speech Clarity: < 100% Nasal Resonance: Normal Articulation: Yes: Precise Rate of Speech: Intact - Language/Auditory Comprehension Follows: Yes: 2 Stage Simple Commands Observation: Able to respond to yes/no queries: Yes, Yes/No Confusion: No, Comprehends Conversational Speech: Yes (if loud enough), Benefits from Slow Speech: Yes, Benefits from Repetiton: Yes, Benefits from Increased Volume of Speech: Yes ([place]) - Language/Verbal Expression Able to Respond to Simple Queries: Yes: WNL Able to Communicate Wants and Needs: Yes: WNL Functional Communication Status: Yes: WNL - Swallow Evaluation/Bedside Assessment Current Nutritional Intake: NPO Oral Secretions: Yes: WFL Dentition: Yes: Adequate (lowers), Edentulous (upper) Facial Symmetry at Rest: Symmetrical Facial Symmetry on Retraction: Symmetrical Facial Movement: Controlled Against Resistance Opening: Normal Against Resistance Closing: Normal Pucker Lips: Normal Smile: Normal Lingual Movement: Normal, Symmetric Lingual Speed of Movement: Normal Lingual Movement Strgth Against Opposition: Normal Lingual Movement Characteristics: Normal Velopharyngeal Movement: Normal Laryngeal Elevation: WFL Laryngeal Movement: Able to Palpate Rate of Intake: WFL Bolus Size: WFL Labial Seal: WFL Chewing: Impaired (Limited by lack of upper teeth) Oral Prep Time: Increased A-P Transit: WFL Pocketing: None Timing of Swallow: WFL Coughing/Throat Clear: No Change in Voice: No Recommendations - Speech Evaluation, Impression/Plan Impression: Swallowing overtly intact. No upper dentition. Fair mastication but efficiency is limited. - Disposition Discharge to: [facility] - Dysphagia Impressions/Plan Dysphagia Impressions: Mild Impairment *Silent aspiration: cannot be R/O at bedside Dysphagia Treatment Plan: Small Bites, Chin Tuck/Down, Clear Pocket Food, Trial Feedings, Safe Rate, 1/2 tsp. at a time, Elevate HOB during feed Recommendations: Modified Barium Swallow (if cough, congestion, if aspiration is suspected) - Recommendations Diet Consistency: Regular (Very soft,easy to chew due to lack of dentition) Liquids: Thin Liquids Supplement: Ensure, Magic Cup
[2019-05-16] MEDS: VANCOMYCIN 1 GRAM (PRE-DOCKED) 1,000 MG/250 ML BAG IVPB SCH (12:27)
[2019-05-16] MEDS: ACETAMINOPHEN 325 MG TABLET (FP) PO PRN (12:41)
[2019-05-16] MEDS: GABAPENTIN 300 MG CAPSULE PO SCH ×2 (15:17→21:51)
[2019-05-16] MEDS: MOMETASONE FUROATE 220 MCG/IH INHALER IH SCH (16:14)
--- NOTE | 2019-05-16 19:27 | PN ---
Progress Note (short form) - Note Progress Note: Patient seen and examined Remains confused , but less than yesterday ---2019 Place----[facility] Knew my name Did not know President's name Last Vital Signs Temp Pulse Resp BP Pulse Ox 97.9 F 78 20 102/51 L 97 05/16/19 17:06 05/16/19 17:06 05/16/19 17:06 05/16/19 17:06 05/16/19 09:00 HEENT: EBEN, EOM Intact Oropharynx: No thrush, No mucositis edentulous Cor: RSR, No murmurs, No gallops Lungs: Clear to P&A Abd: Soft, Normal bowel sounds, No organomegaly Ext:Dressed edema R>L Skin: Stasis LE's CBC, BMP 05/16/19 06:40 05/16/19 06:40 INR, PTT INR 8.07 (0.83-1.09) H* 05/16/19 06:40 Current Medications Generic Name Dose Route Start Last Admin Trade Name Terence PRN Reason Stop Dose Admin Acetaminophen 650 mg 05/15/19 17:12 05/16/19 12:41 Tylenol - PO 650 mg Q8H PRN Administration PAIN LEVEL 4 - 6 Albuterol Sulfate 1 amp 05/15/19 17:20 Ventolin 0.083% Nebulizer Soln - NEB Q6H PRN SHORT OF BREATH/WHEEZING Amino Acids 30 ml 05/16/19 08:00 05/16/19 09:05 Prosource No Carb Liquid Pkt PO Not Given DAILY@0800 [facility] Ascorbic Acid 500 mg 05/16/19 10:00 05/16/19 11:23 Vitamin C - PO 500 mg DAILY [facility] Administration Atorvastatin Calcium 40 mg 05/15/19 22:00 05/15/19 22:39 Lipitor - PO Not Given HS [facility] Famotidine 20 mg 05/15/19 22:00 05/16/19 11:25 Pepcid - PO 20 mg BID [facility] Administration Ferrous Sulfate 325 mg 05/16/19 10:00 05/16/19 11:24 Feosol - PO 325 mg DAILY [facility] Administration Furosemide 20 mg 05/16/19 10:00 05/16/19 11:24 Lasix - PO 20 mg Q2D [facility] Administration Gabapentin 600 mg 05/15/19 22:00 05/16/19 15:17 Neurontin - PO Not Given TID [facility] Vancomycin HCl 1,000 mg in 250 mls @ 166.667 mls/hr 05/15/19 12:30 05/16/19 12:27 Vancomycin (Pre-Docked) IVPB 166.667 mls/hr Q24H [facility] Administration Protocol Piperacillin Sod/Tazobactam 50 mls @ 100 mls/hr 05/15/19 18:00 05/16/19 17:27 Sod 3.375 gm/ Dextrose IVPB 100 mls/hr Q8H-IV [facility] Administration Protocol Levothyroxine Sodium 100 mcg 05/16/19 07:00 05/16/19 06:16 Synthroid - PO Not Given DAILY@0700 [facility] Magnesium Oxide 400 mg 05/16/19 10:00 05/16/19 11:23 Mag-Ox - PO 400 mg DAILY [facility] Administration Memantine 5 mg 05/15/19 22:00 05/16/19 11:23 Namenda - PO 5 mg BID [facility] Administration Metoprolol Succinate 25 mg 05/16/19 10:00 05/16/19 11:23 Toprol Xl - PO 25 mg DAILY [facility] Administration Mometasone Furoate 1 puff 05/16/19 10:00 05/16/19 16:14 Asmanex 220mcg - IH Not Given DAILY [facility] Multi-Ingredient Ointment 1 applic 05/15/19 22:00 05/16/19 16:14 Zinc Oxide TP Not Given TID [facility] Multivitamins/Minerals/Vitamin C 1 tab 05/16/19 10:00 05/16/19 11:25 Tab-A-Vit - PO 1 tab DAILY [facility] Administration Non-Formulary Medication 1 tab 05/16/19 10:00 Lenalidomide [Revlimid] PO DAILY [facility] Pramipexole Dihydrochloride 0.25 mg 05/15/19 22:00 05/16/19 16:14 Mirapex - PO Not Given TID [facility] Tramadol HCl 50 mg 05/15/19 17:12 Ultram - PO Q8H PRN PAIN LEVEL 1-5 Urine --- Gm negative bacilli Positive blood culture- pending Impression: Sepsis MM VDR chemotherapy Coagulopathy secondary to coumadin and antibiotic therapy Confusion- toxic metabolic Plan: Additional vitamin K Isolation of organisms and antibiotics per ID Monitor of coags
[2019-05-16] MEDS: traMADol HCL 50 MG TABLET PO PRN (19:41)
[2019-05-16] MEDS: ATORVASTATIN CA 40 MG TABLET (FP) PO SCH (21:50)
--- NOTE | 2019-05-16 22:18 | PN ---
Progress Note, Physician - Current Medication List Current Medications: Active Medications Acetaminophen (Tylenol -) 650 mg PO Q8H PRN PRN Reason: PAIN LEVEL 4 - 6 Last Admin: 05/16/19 12:41 Dose: 650 mg Albuterol Sulfate (Ventolin 0.083% Nebulizer Soln -) 1 amp NEB Q6H PRN PRN Reason: SHORT OF BREATH/WHEEZING Amino Acids (Prosource No Carb Liquid Pkt) 30 ml PO DAILY@0800 [facility] Last Admin: 05/16/19 09:05 Dose: Not Given Ascorbic Acid (Vitamin C -) 500 mg PO DAILY [facility] Last Admin: 05/16/19 11:23 Dose: 500 mg Atorvastatin Calcium (Lipitor -) 40 mg PO HS [facility] Last Admin: 05/16/19 21:50 Dose: 40 mg Famotidine (Pepcid -) 20 mg PO BID [facility] Last Admin: 05/16/19 21:51 Dose: 20 mg Ferrous Sulfate (Feosol -) 325 mg PO DAILY [facility] Last Admin: 05/16/19 11:24 Dose: 325 mg Furosemide (Lasix -) 20 mg PO Q2D [facility] Last Admin: 05/16/19 11:24 Dose: 20 mg Gabapentin (Neurontin -) 600 mg PO TID [facility] Last Admin: 05/16/19 21:51 Dose: 600 mg Vancomycin HCl (Vancomycin (Pre-Docked)) 1,000 mg in 250 mls @ 166.667 mls/hr IVPB Q24H [facility]; Protocol Last Admin: 05/16/19 12:27 Dose: 166.667 mls/hr Piperacillin Sod/Tazobactam (Sod 3.375 gm/ Dextrose) 50 mls @ 100 mls/hr IVPB Q8H-IV [facility]; Protocol Last Admin: 05/16/19 17:27 Dose: 100 mls/hr Levothyroxine Sodium (Synthroid -) 100 mcg PO DAILY@0700 [facility] Last Admin: 05/16/19 06:16 Dose: Not Given Magnesium Oxide (Mag-Ox -) 400 mg PO DAILY [facility] Last Admin: 05/16/19 11:23 Dose: 400 mg Memantine (Namenda -) 5 mg PO BID [facility] Last Admin: 05/16/19 21:50 Dose: 5 mg Metoprolol Succinate (Toprol Xl -) 25 mg PO DAILY [facility] Last Admin: 05/16/19 11:23 Dose: 25 mg Mometasone Furoate (Asmanex 220mcg -) 1 puff IH DAILY [facility] Last Admin: 05/16/19 16:14 Dose: Not Given Multi-Ingredient Ointment (Zinc Oxide) 1 applic TP TID [facility] Last Admin: 05/16/19 21:52 Dose: 1 applic Multivitamins/Minerals/Vitamin C (Tab-A-Vit -) 1 tab PO DAILY [facility] Last Admin: 05/16/19 11:25 Dose: 1 tab Non-Formulary Medication (Lenalidomide [Revlimid]) 1 tab PO DAILY [facility] Pramipexole Dihydrochloride (Mirapex -) 0.25 mg PO TID [facility] Last Admin: 05/16/19 21:51 Dose: 0.25 mg Tramadol HCl (Ultram -) 50 mg PO Q8H PRN PRN Reason: PAIN LEVEL 1-5 Last Admin: 05/16/19 19:41 Dose: 50 mg - Objective Vital Signs: Vital Signs Temperature 99.3 F 05/16/19 22:00 Pulse Rate 74 05/16/19 22:00 Respiratory Rate 22 H 05/16/19 22:00 Blood Pressure 104/51 L 05/16/19 22:00 O2 Sat by Pulse Oximetry (%) 97 05/16/19 09:00 Labs: CBC, BMP 05/16/19 06:40 05/16/19 06:40 INR, PTT INR 8.07 (0.83-1.09) H* 05/16/19 06:40
[2019-05-17] MEDS ORDERED: DEXTROSE 5%-WATER - 50 ML IVPB ONE ×3 (01:14→16:46)
[2019-05-17] MEDS ORDERED: PIPERACILLIN/TAZOBACTAM 3.375 GM VIAL IVPB ONE ×3 (01:14→16:46)
[2019-05-17] MEDS: PIPERACILLIN/TAZOB 3.375 GM 3.375 GM in DEXTROSE 5%-WATER - 50 ML IVPB SCH ×3 (01:36→17:01)
[2019-05-17] MEDS: GABAPENTIN 300 MG CAPSULE PO SCH ×3 (06:32→22:00)
[2019-05-17] MEDS: PRAMIPEXOLE DIHYDROCHLORIDE 0.25 MG TABLET PO SCH ×3 (06:32→22:01)
[2019-05-17] MEDS: ZINC OXIDE 20% TOPICAL OINTMENT 30 GM TUBE TP SCH ×3 (06:32→22:01)
[2019-05-17] MEDS: LEVOTHYROXINE NA 100 MCG TABLET (FP) PO SCH (06:32)
[2019-05-17 08:20] LABS: HEMATOCRIT 29.7 % (32.4-45.2); HEMOGLOBIN 9.8 GM/dL (10.7-15.3); MCH 30.8 pg (25.7-33.7); MCHC 32.9 g/dl (32.0-36.0); MEAN CELL VOLUME 93.7 fl (80-96); MEAN PLT VOLUME 9.6 fl (7.5-11.1); PLATELET COUNT 96 K/MM3 (134-434); RBC 3.17 M/mm3 (3.60-5.2); RDW 20.3 % (11.6-15.6); WHITE BLOOD COUNT 5.3 K/mm3 (4.0-10.0)
[2019-05-17 08:26] LABS: INR 2.68 (0.83-1.09)
[2019-05-17] MEDS: AMINO ACIDS/PROTEIN HYDROLYS 30 ML LIQUID.PKT PO SCH (08:55)
[2019-05-17 08:59] LABS: BLOOD UREA NITROGEN 25.1 mg/dL (7-18); CALCIUM 7.9 mg/dL (8.5-10.1); CREATININE 1.3 mg/dL (0.55-1.3); MAGNESIUM 2.3 mg/dL (1.8-2.4); POTASSIUM 3.1 mmol/L (3.5-5.1)
--- NOTE | 2019-05-17 09:05 | PN ---
Progress Note (short form) - Note Progress Note: More awake and alert today. Reports breathing feels better. No CP or SOB. Some dry cough. Intake & Output 05/14/19 05/15/19 05/16/19 05/17/19 23:59 23:59 23:59 23:59 Intake Total 1999 0 500 100 Output Total 1949 1999 800 Balance 1999 -1950 -1500 -700 Weight 160 lb 160 lb Last Vital Signs Temp Pulse Resp BP Pulse Ox 98.5 F 70 20 109/51 L 97 05/17/19 05:34 05/17/19 05:34 05/17/19 05:34 05/17/19 05:34 05/16/19 21:00 Active Medications Acetaminophen (Tylenol -) 650 mg PO Q8H PRN PRN Reason: PAIN LEVEL 4 - 6 Last Admin: 05/16/19 12:41 Dose: 650 mg Albuterol Sulfate (Ventolin 0.083% Nebulizer Soln -) 1 amp NEB Q6H PRN PRN Reason: SHORT OF BREATH/WHEEZING Amino Acids (Prosource No Carb Liquid Pkt) 30 ml PO DAILY@0800 [facility] Last Admin: 05/17/19 08:55 Dose: 30 ml Ascorbic Acid (Vitamin C -) 500 mg PO DAILY [facility] Last Admin: 05/16/19 11:23 Dose: 500 mg Atorvastatin Calcium (Lipitor -) 40 mg PO HS [facility] Last Admin: 05/16/19 21:50 Dose: 40 mg Famotidine (Pepcid -) 20 mg PO BID [facility] Last Admin: 05/16/19 21:51 Dose: 20 mg Ferrous Sulfate (Feosol -) 325 mg PO DAILY [facility] Last Admin: 05/16/19 11:24 Dose: 325 mg Furosemide (Lasix -) 20 mg PO Q2D [facility] Last Admin: 05/16/19 11:24 Dose: 20 mg Gabapentin (Neurontin -) 600 mg PO TID [facility] Last Admin: 05/17/19 06:32 Dose: 600 mg Vancomycin HCl (Vancomycin (Pre-Docked)) 1,000 mg in 250 mls @ 166.667 mls/hr IVPB Q24H [facility]; Protocol Last Admin: 05/16/19 12:27 Dose: 166.667 mls/hr Piperacillin Sod/Tazobactam (Sod 3.375 gm/ Dextrose) 50 mls @ 100 mls/hr IVPB Q8H-IV [facility]; Protocol Last Admin: 05/17/19 01:36 Dose: 100 mls/hr Levothyroxine Sodium (Synthroid -) 100 mcg PO DAILY@0700 [facility] Last Admin: 05/17/19 06:32 Dose: 100 mcg Magnesium Oxide (Mag-Ox -) 400 mg PO DAILY [facility] Last Admin: 05/16/19 11:23 Dose: 400 mg Memantine (Namenda -) 5 mg PO BID [facility] Last Admin: 05/16/19 21:50 Dose: 5 mg Metoprolol Succinate (Toprol Xl -) 25 mg PO DAILY [facility] Last Admin: 05/16/19 11:23 Dose: 25 mg Mometasone Furoate (Asmanex 220mcg -) 1 puff IH DAILY [facility] Last Admin: 05/16/19 16:14 Dose: Not Given Multi-Ingredient Ointment (Zinc Oxide) 1 applic TP TID [facility] Last Admin: 05/17/19 06:32 Dose: 1 applic Multivitamins/Minerals/Vitamin C (Tab-A-Vit -) 1 tab PO DAILY [facility] Last Admin: 05/16/19 11:25 Dose: 1 tab Non-Formulary Medication (Lenalidomide [Revlimid]) 1 tab PO DAILY [facility] Pramipexole Dihydrochloride (Mirapex -) 0.25 mg PO TID [facility] Last Admin: 05/17/19 06:32 Dose: 0.25 mg Tramadol HCl (Ultram -) 50 mg PO Q8H PRN PRN Reason: PAIN LEVEL 1-5 Last Admin: 05/16/19 19:41 Dose: 50 mg Constitutional: Yes: No Distress, Thin Eyes: Yes: Conjunctiva Clear, EOM Intact HENT: Yes: Atraumatic, Normocephalic Neck: Yes: Supple, Trachea Midline Cardiovascular: Yes: Pulse Irregular Respiratory: Yes: diminished, On Nasal O2, Rhonchi. No: Rales, SOB, SOB on Exertion, Stridor, Tachypnea, Wheezes ...Inspection: Yes: WNL ...Clubbing: No Gastrointestinal: Yes: Normal Bowel Sounds, Soft Renal/: Yes: WNL Musculoskeletal: Yes: WNL Extremities: Yes: Other (ulcer ) Edema: No Peripheral Pulses WNL: Yes Integumentary: Yes: Erythema, Venous Stasis Changes, Other (ulcer) Neurological: Yes: Awake and alert, Non-focal Laboratory Results - last 24 hr 05/16/19 05/16/19 05/17/19 06:40 11:08 06:45 WBC RBC Hgb Hct MCV MCH MCHC RDW Plt Count MPV PT with INR 32.00 H INR 8.07 H* 2.68 H Sodium Potassium Chloride Carbon Dioxide Anion Gap BUN Creatinine Est GFR (CKD-EPI)AfAm Est GFR (CKD-EPI)NonAf Random Glucose Lactic Acid 1.2 Calcium Magnesium 05/17/19 05/17/19 06:45 06:45 WBC 5.3 RBC 3.17 L Hgb 9.8 L Hct 29.7 L MCV 93.7 MCH 30.8 MCHC 32.9 RDW 20.3 H Plt Count 96 L MPV 9.6 D PT with INR INR Sodium 150 H Potassium 3.1 L Chloride 119 H Carbon Dioxide 25 Anion Gap 6 L BUN 25.1 H Creatinine 1.3 Est GFR (CKD-EPI)AfAm 43.02 Est GFR (CKD-EPI)NonAf 37.12 Random Glucose 94 Lactic Acid Calcium 7.9 L Magnesium 2.3 Problem List - Problems (1) Atelectasis Code(s): J98.11 - ATELECTASIS (2) Sepsis Code(s): A41.9 - SEPSIS, UNSPECIFIED ORGANISM (3) Altered mental state Code(s): R41.82 - ALTERED MENTAL STATUS, UNSPECIFIED Qualifiers: Altered mental status type: disorientation Qualified Code(s): R41.0 - Disorientation, unspecified (4) PNA (pneumonia) Code(s): J18.9 - PNEUMONIA, UNSPECIFIED ORGANISM Qualifiers: Pneumonia type: due to unspecified organism Laterality: right Lung location: lower lobe of lung Qualified Code(s): J18.9 - Pneumonia, unspecified organism (5) Afib Code(s): I48.91 - UNSPECIFIED ATRIAL FIBRILLATION (6) Anemia Code(s): D64.9 - ANEMIA, UNSPECIFIED Qualifiers: Anemia type: B12 deficiency 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 (7) CHF (congestive heart failure) Code(s): I50.9 - HEART FAILURE, UNSPECIFIED (8) Cellulitis Code(s): L03.90 - CELLULITIS, UNSPECIFIED Qualifiers: Site of cellulitis: extremity Site of cellulitis of extremity: lower extremity Laterality: left Qualified Code(s): L03.116 - Cellulitis of left lower limb (9) Cough Code(s): R05 - COUGH (10) HTN (hypertension) Code(s): I10 - ESSENTIAL (PRIMARY) HYPERTENSION (11) Hypotension Code(s): I95.9 - HYPOTENSION, UNSPECIFIED (12) Multiple myeloma Code(s): C90.00 - MULTIPLE MYELOMA NOT HAVING ACHIEVED REMISSION Qualifiers: Multiple myeloma remission status: unspecified Qualified Code(s): C90.00 - Multiple myeloma not having achieved remission (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 Assessment/Plan ABX per ID O2 as needed Follow cultures Local wound care per surgery Aspiration precautions Dr [place] Problem List - Problems (1) Atelectasis Code(s): J98.11 - ATELECTASIS (2) Sepsis Code(s): A41.9 - SEPSIS, UNSPECIFIED ORGANISM (3) Altered mental state Code(s): R41.82 - ALTERED MENTAL STATUS, UNSPECIFIED Qualifiers: Altered mental status type: disorientation Qualified Code(s): R41.0 - Disorientation, unspecified (4) PNA (pneumonia) Code(s): J18.9 - PNEUMONIA, UNSPECIFIED ORGANISM Qualifiers: Pneumonia type: due to unspecified organism Laterality: right Lung location: lower lobe of lung Qualified Code(s): J18.9 - Pneumonia, unspecified organism (5) Afib Code(s): I48.91 - UNSPECIFIED ATRIAL FIBRILLATION (6) Anemia Code(s): D64.9 - ANEMIA, UNSPECIFIED Qualifiers: Anemia type: B12 deficiency 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 (7) CHF (congestive heart failure) Code(s): I50.9 - HEART FAILURE, UNSPECIFIED (8) Cellulitis Code(s): L03.90 - CELLULITIS, UNSPECIFIED Qualifiers: Site of cellulitis: extremity Site of cellulitis of extremity: lower extremity Laterality: left Qualified Code(s): L03.116 - Cellulitis of left lower limb (9) Cough Code(s): R05 - COUGH (10) HTN (hypertension) Code(s): I10 - ESSENTIAL (PRIMARY) HYPERTENSION (11) Hypotension Code(s): I95.9 - HYPOTENSION, UNSPECIFIED (12) Multiple myeloma Code(s): C90.00 - MULTIPLE MYELOMA NOT HAVING ACHIEVED REMISSION Qualifiers: Multiple myeloma remission status: unspecified Qualified Code(s): C90.00 - Multiple myeloma not having achieved remission (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
[2019-05-17] MEDS: MEMANTINE HCL 5 MG TABLET (UD) PO SCH ×2 (10:39→22:01)
[2019-05-17] MEDS: FAMOTIDINE 20 MG TABLET PO SCH ×2 (10:39→22:01)
[2019-05-17] MEDS: metoPROLOL SUCCINATE 25 MG TAB.SR.24H (FP) PO SCH (10:39)
[2019-05-17] MEDS: MULTIVITAMINS (DAILY MVI) TABLET (FP) PO SCH (10:39)
[2019-05-17] MEDS: FERROUS SO4 325 MG TABLET (FP) PO SCH (10:39)
[2019-05-17] MEDS: ASCORBIC ACID 500 MG TABLET (FP) PO SCH (10:39)
[2019-05-17] MEDS: MOMETASONE FUROATE 220 MCG/IH INHALER IH SCH (10:39)
[2019-05-17] MEDS: MAGNESIUM OXIDE 400 MG TABLET (FP) PO SCH (10:39)
--- NOTE | 2019-05-17 11:20 | PN ---
Physical Exam: SUBJECTIVE: Patient seen and examined no acute events over night , feeling better , awake alert INR 2.6 today resume warfarin last BM 2 days ago , consider miralax fee OBJECTIVE: Vital Signs Period Temp Pulse Resp BP Sys/Ferrer Pulse Ox Last 24 Hr 97.9 F-99.9 F 70-78 - 102-109/51-51 97 General: Awake alert Head: NC/AT HEENT: EBEN, EOM Intact Oropharynx: No thrush, No mucositis edentulous Cor: RSR, No murmurs, No gallops Lungs: Clear to P&A Abd: Soft, Normal bowel sounds, No organomegaly Ext:Dressed edema R>L Skin: Stasis LE's, hyperpigmented Right worse than left , very painul to touch no noduled palpated no breast mass palpated Laboratory Results - last 24 hr 05/16/19 05/17/19 05/17/19 11:08 06:45 06:45 WBC 5.3 RBC 3.17 L Hgb 9.8 L Hct 29.7 L MCV 93.7 MCH 30.8 MCHC 32.9 RDW 20.3 H Plt Count 96 L MPV 9.6 D PT with INR 32.00 H INR 2.68 H Sodium Potassium Chloride Carbon Dioxide Anion Gap BUN Creatinine Est GFR (CKD-EPI)AfAm Est GFR (CKD-EPI)NonAf Random Glucose Lactic Acid 1.2 Calcium Magnesium 05/17/19 06:45 WBC RBC Hgb Hct MCV MCH MCHC RDW Plt Count MPV PT with INR INR Sodium 150 H Potassium 3.1 L Chloride 119 H Carbon Dioxide 25 Anion Gap 6 L BUN 25.1 H Creatinine 1.3 Est GFR (CKD-EPI)AfAm 43.02 Est GFR (CKD-EPI)NonAf 37.12 Random Glucose 94 Lactic Acid Calcium 7.9 L Magnesium 2.3 Active Medications Generic Name Dose Route Start Last Admin Trade Name Freq PRN Reason Stop Dose Admin Acetaminophen 650 mg 05/15/19 17:12 05/16/19 12:41 Tylenol - PO 650 mg Q8H PRN Administration PAIN LEVEL 4 - 6 Albuterol Sulfate 1 amp 05/15/19 17:20 Ventolin 0.083% Nebulizer Soln - NEB Q6H PRN SHORT OF BREATH/WHEEZING Amino Acids 30 ml 05/16/19 08:00 05/17/19 08:55 Prosource No Carb Liquid Pkt PO 30 ml DAILY@0800 [facility] Administration Ascorbic Acid 500 mg 05/16/19 10:00 05/17/19 10:39 Vitamin C - PO 500 mg DAILY [facility] Administration Atorvastatin Calcium 40 mg 05/15/19 22:00 05/16/19 21:50 Lipitor - PO 40 mg HS [facility] Administration Famotidine 20 mg 05/15/19 22:00 05/17/19 10:39 Pepcid - PO 20 mg BID [facility] Administration Ferrous Sulfate 325 mg 05/16/19 10:00 05/17/19 10:39 Feosol - PO 325 mg DAILY [facility] Administration Furosemide 20 mg 05/16/19 10:00 05/16/19 11:24 Lasix - PO 20 mg Q2D [facility] Administration Gabapentin 600 mg 05/15/19 22:00 05/17/19 06:32 Neurontin - PO 600 mg TID [facility] Administration Vancomycin HCl 1,000 mg in 250 mls @ 166.667 mls/hr 05/15/19 12:30 05/16/19 12:27 Vancomycin (Pre-Docked) IVPB 166.667 mls/hr Q24H [facility] Administration Protocol Piperacillin Sod/Tazobactam 50 mls @ 100 mls/hr 05/15/19 18:00 05/17/19 10:38 Sod 3.375 gm/ Dextrose IVPB 100 mls/hr Q8H-IV [facility] Administration Protocol Levothyroxine Sodium 100 mcg 05/16/19 07:00 05/17/19 06:32 Synthroid - PO 100 mcg DAILY@0700 [facility] Administration Magnesium Oxide 400 mg 05/16/19 10:00 05/17/19 10:39 Mag-Ox - PO 400 mg DAILY [facility] Administration Memantine 5 mg 05/15/19 22:00 05/17/19 10:39 Namenda - PO 5 mg BID [facility] Administration Metoprolol Succinate 25 mg 05/16/19 10:00 05/17/19 10:39 Toprol Xl - PO 25 mg DAILY [facility] Administration Mometasone Furoate 1 puff 05/16/19 10:00 05/17/19 10:39 Asmanex 220mcg - IH 1 puff DAILY [facility] Administration Multi-Ingredient Ointment 1 applic 05/15/19 22:00 05/17/19 06:32 Zinc Oxide TP 1 applic TID [facility] Administration Multivitamins/Minerals/Vitamin C 1 tab 05/16/19 10:00 05/17/19 10:39 Tab-A-Vit - PO 1 tab DAILY [facility] Administration Non-Formulary Medication 1 tab 05/16/19 10:00 Lenalidomide [Revlimid] PO DAILY [facility] Pramipexole Dihydrochloride 0.25 mg 05/15/19 22:00 05/17/19 06:32 Mirapex - PO 0.25 mg TID [facility] Administration Tramadol HCl 50 mg 05/15/19 17:12 05/16/19 19:41 Ultram - PO 50 mg Q8H PRN Administration PAIN LEVEL 1-5 CBC, BMP 05/17/19 06:45 05/17/19 06:45 Urine --- Gm negative bacilli Positive blood culture- pending ASSESSMENT/PLAN: #Anemia normocytic normochromic anemia ,likely due to chronic disease , monitor H/H daily #Thrombocytopenia 96 today no active bleeding likely due to infection , cont to monitor daily #MM #Sepsis 2/2 cellulites #VDR chemotherapy #Coagulopathy secondary to coumadin and antibiotic therapy : INR 2.6 today #Confusion- toxic metabolic #hypothyroidism TSH low , normal T4 and free t3, consider repeat TSH as out pt after infction resolved #PNA #venous stasis #Hypernatremia consider d5w or 1/2 NS fluids Plan: Additional vitamin K Isolation of organisms and antibiotics per ID Monitor of coags resume warfarin per primary team , monitor INR and adjust accordingly Visit type - Emergency Visit Emergency Visit: Yes ED Registration Date: 05/14/19 Care time: The patient presented to the Emergency Department on the above date and was hospitalized for further evaluation of their emergent condition. - New Patient This patient is new to me today: No - Critical Care Critical Care patient: No - Discharge Referral Referred to [facility] Med [facility] No ATTENDING PHYSICIAN STATEMENT I saw and evaluated the patient. I reviewed the resident's note and discussed the case with the resident. I agree with the resident's findings and plan as documented. SUBJECTIVE: OBJECTIVE: ASSESSMENT AND PLAN:
[2019-05-17] MEDS ORDERED: POTASSIUM CHLORIDE TABS 20 MEQ TABLET.ER (FP) PO ONE (11:21)
--- NOTE | 2019-05-17 11:23 | PN ---
Progress Note, Physician - Current Medication List Current Medications: Active Medications Acetaminophen (Tylenol -) 650 mg PO Q8H PRN PRN Reason: PAIN LEVEL 4 - 6 Last Admin: 05/16/19 12:41 Dose: 650 mg Albuterol Sulfate (Ventolin 0.083% Nebulizer Soln -) 1 amp NEB Q6H PRN PRN Reason: SHORT OF BREATH/WHEEZING Amino Acids (Prosource No Carb Liquid Pkt) 30 ml PO DAILY@0800 [facility] Last Admin: 05/17/19 08:55 Dose: 30 ml Ascorbic Acid (Vitamin C -) 500 mg PO DAILY [facility] Last Admin: 05/17/19 10:39 Dose: 500 mg Atorvastatin Calcium (Lipitor -) 40 mg PO HS [facility] Last Admin: 05/16/19 21:50 Dose: 40 mg Famotidine (Pepcid -) 20 mg PO BID [facility] Last Admin: 05/17/19 10:39 Dose: 20 mg Ferrous Sulfate (Feosol -) 325 mg PO DAILY [facility] Last Admin: 05/17/19 10:39 Dose: 325 mg Furosemide (Lasix -) 20 mg PO Q2D [facility] Last Admin: 05/16/19 11:24 Dose: 20 mg Gabapentin (Neurontin -) 600 mg PO TID [facility] Last Admin: 05/17/19 06:32 Dose: 600 mg Vancomycin HCl (Vancomycin (Pre-Docked)) 1,000 mg in 250 mls @ 166.667 mls/hr IVPB Q24H [facility]; Protocol Last Admin: 05/16/19 12:27 Dose: 166.667 mls/hr Piperacillin Sod/Tazobactam (Sod 3.375 gm/ Dextrose) 50 mls @ 100 mls/hr IVPB Q8H-IV [facility]; Protocol Last Admin: 05/17/19 10:38 Dose: 100 mls/hr Levothyroxine Sodium (Synthroid -) 100 mcg PO DAILY@0700 [facility] Last Admin: 05/17/19 06:32 Dose: 100 mcg Magnesium Oxide (Mag-Ox -) 400 mg PO DAILY [facility] Last Admin: 05/17/19 10:39 Dose: 400 mg Memantine (Namenda -) 5 mg PO BID [facility] Last Admin: 05/17/19 10:39 Dose: 5 mg Metoprolol Succinate (Toprol Xl -) 25 mg PO DAILY [facility] Last Admin: 05/17/19 10:39 Dose: 25 mg Mometasone Furoate (Asmanex 220mcg -) 1 puff IH DAILY [facility] Last Admin: 05/17/19 10:39 Dose: 1 puff Multi-Ingredient Ointment (Zinc Oxide) 1 applic TP TID [facility] Last Admin: 05/17/19 06:32 Dose: 1 applic Multivitamins/Minerals/Vitamin C (Tab-A-Vit -) 1 tab PO DAILY [facility] Last Admin: 05/17/19 10:39 Dose: 1 tab Non-Formulary Medication (Lenalidomide [Revlimid]) 1 tab PO DAILY [facility] Pramipexole Dihydrochloride (Mirapex -) 0.25 mg PO TID [facility] Last Admin: 05/17/19 06:32 Dose: 0.25 mg Tramadol HCl (Ultram -) 50 mg PO Q8H PRN PRN Reason: PAIN LEVEL 1-5 Last Admin: 05/16/19 19:41 Dose: 50 mg - Objective Vital Signs: Vital Signs Temperature 98.5 F 05/17/19 05:34 Pulse Rate 70 05/17/19 05:34 Respiratory Rate 20 05/17/19 05:34 Blood Pressure 109/51 L 05/17/19 05:34 O2 Sat by Pulse Oximetry (%) 97 05/16/19 21:00 Labs: CBC, BMP 05/17/19 06:45 05/17/19 06:45 INR, PTT INR 2.68 (0.83-1.09) H 05/17/19 06:45 Problem List - Problems (1) Altered mental state Code(s): R41.82 - ALTERED MENTAL STATUS, UNSPECIFIED Qualifiers: Altered mental status type: disorientation Qualified Code(s): R41.0 - Disorientation, unspecified (2) Atelectasis Code(s): J98.11 - ATELECTASIS (3) PNA (pneumonia) Code(s): J18.9 - PNEUMONIA, UNSPECIFIED ORGANISM Qualifiers: Pneumonia type: due to unspecified organism Laterality: right Lung location: lower lobe of lung Qualified Code(s): J18.9 - Pneumonia, unspecified organism (4) Sepsis Code(s): A41.9 - SEPSIS, UNSPECIFIED ORGANISM (5) Afib Code(s): I48.91 - UNSPECIFIED ATRIAL FIBRILLATION (6) Anemia Code(s): D64.9 - ANEMIA, UNSPECIFIED Qualifiers: Anemia type: B12 deficiency 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 (7) Headache Code(s): R51 - HEADACHE Qualifiers: Headache type: other headache syndrome Qualified Code(s): G44.89 - Other headache syndrome (8) Hypothyroidism Code(s): E03.9 - HYPOTHYROIDISM, UNSPECIFIED (9) Leg pain, left Code(s): M79.605 - PAIN IN LEFT LEG (10) Leg pain, right Code(s): M79.604 - PAIN IN RIGHT LEG (11) Multiple myeloma Code(s): C90.00 - MULTIPLE MYELOMA NOT HAVING ACHIEVED REMISSION Qualifiers: Multiple myeloma remission status: unspecified Qualified Code(s): C90.00 - Multiple myeloma not having achieved remission (12) Thyroid cancer Code(s): C73 - MALIGNANT NEOPLASM OF THYROID GLAND (13) Pneumonia Code(s): J18.9 - PNEUMONIA, UNSPECIFIED ORGANISM (14) Cellulitis of leg, right Code(s): L03.115 - CELLULITIS OF RIGHT LOWER LIMB (15) Respiratory infection Code(s): J98.8 - OTHER SPECIFIED RESPIRATORY DISORDERS
--- NOTE | 2019-05-17 11:24 | PN ---
Progress Note, Physician Chief Complaint: AWAKE CONFUSED TOLERATING PO DIET - Current Medication List Current Medications: Active Medications Acetaminophen (Tylenol -) 650 mg PO Q8H PRN PRN Reason: PAIN LEVEL 4 - 6 Last Admin: 05/16/19 12:41 Dose: 650 mg Albuterol Sulfate (Ventolin 0.083% Nebulizer Soln -) 1 amp NEB Q6H PRN PRN Reason: SHORT OF BREATH/WHEEZING Amino Acids (Prosource No Carb Liquid Pkt) 30 ml PO DAILY@0800 [facility] Last Admin: 05/17/19 08:55 Dose: 30 ml Ascorbic Acid (Vitamin C -) 500 mg PO DAILY [facility] Last Admin: 05/17/19 10:39 Dose: 500 mg Atorvastatin Calcium (Lipitor -) 40 mg PO HS [facility] Last Admin: 05/16/19 21:50 Dose: 40 mg Famotidine (Pepcid -) 20 mg PO BID [facility] Last Admin: 05/17/19 10:39 Dose: 20 mg Ferrous Sulfate (Feosol -) 325 mg PO DAILY [facility] Last Admin: 05/17/19 10:39 Dose: 325 mg Furosemide (Lasix -) 20 mg PO Q2D [facility] Last Admin: 05/16/19 11:24 Dose: 20 mg Gabapentin (Neurontin -) 600 mg PO TID [facility] Last Admin: 05/17/19 06:32 Dose: 600 mg Vancomycin HCl (Vancomycin (Pre-Docked)) 1,000 mg in 250 mls @ 166.667 mls/hr IVPB Q24H [facility]; Protocol Last Admin: 05/16/19 12:27 Dose: 166.667 mls/hr Piperacillin Sod/Tazobactam (Sod 3.375 gm/ Dextrose) 50 mls @ 100 mls/hr IVPB Q8H-IV [facility]; Protocol Last Admin: 05/17/19 10:38 Dose: 100 mls/hr Levothyroxine Sodium (Synthroid -) 100 mcg PO DAILY@0700 [facility] Last Admin: 05/17/19 06:32 Dose: 100 mcg Magnesium Oxide (Mag-Ox -) 400 mg PO DAILY [facility] Last Admin: 05/17/19 10:39 Dose: 400 mg Memantine (Namenda -) 5 mg PO BID [facility] Last Admin: 05/17/19 10:39 Dose: 5 mg Metoprolol Succinate (Toprol Xl -) 25 mg PO DAILY [facility] Last Admin: 05/17/19 10:39 Dose: 25 mg Mometasone Furoate (Asmanex 220mcg -) 1 puff IH DAILY [facility] Last Admin: 05/17/19 10:39 Dose: 1 puff Multi-Ingredient Ointment (Zinc Oxide) 1 applic TP TID [facility] Last Admin: 05/17/19 06:32 Dose: 1 applic Multivitamins/Minerals/Vitamin C (Tab-A-Vit -) 1 tab PO DAILY [facility] Last Admin: 05/17/19 10:39 Dose: 1 tab Non-Formulary Medication (Lenalidomide [Revlimid]) 1 tab PO DAILY [facility] Potassium Chloride (K-Dur -) 20 meq PO DAILY [facility] Potassium Chloride (K-Dur -) 20 meq PO ONCE ONE Stop: 05/17/19 11:22 Pramipexole Dihydrochloride (Mirapex -) 0.25 mg PO TID [facility] Last Admin: 05/17/19 06:32 Dose: 0.25 mg Tramadol HCl (Ultram -) 50 mg PO Q8H PRN PRN Reason: PAIN LEVEL 1-5 Last Admin: 05/16/19 19:41 Dose: 50 mg - Objective Vital Signs: Vital Signs Temperature 98.5 F 05/17/19 05:34 Pulse Rate 70 05/17/19 05:34 Respiratory Rate 20 05/17/19 05:34 Blood Pressure 109/51 L 05/17/19 05:34 O2 Sat by Pulse Oximetry (%) 97 05/16/19 21:00 Constitutional: Yes: Other Cardiovascular: Yes: Regular Rate and Rhythm Respiratory: Yes: WNL Gastrointestinal: Yes: Soft Genitourinary: Yes: Incontinence Musculoskeletal: Yes: Muscle Weakness Labs: CBC, BMP 05/17/19 06:45 05/17/19 06:45 INR, PTT INR 2.68 (0.83-1.09) H 05/17/19 06:45 Problem List - Problems (1) Altered mental state Code(s): R41.82 - ALTERED MENTAL STATUS, UNSPECIFIED Qualifiers: Altered mental status type: disorientation Qualified Code(s): R41.0 - Disorientation, unspecified (2) Atelectasis Code(s): J98.11 - ATELECTASIS (3) PNA (pneumonia) Code(s): J18.9 - PNEUMONIA, UNSPECIFIED ORGANISM Qualifiers: Pneumonia type: due to unspecified organism Laterality: right Lung location: lower lobe of lung Qualified Code(s): J18.9 - Pneumonia, unspecified organism (4) Sepsis Code(s): A41.9 - SEPSIS, UNSPECIFIED ORGANISM (5) Afib Code(s): I48.91 - UNSPECIFIED ATRIAL FIBRILLATION (6) Anemia Code(s): D64.9 - ANEMIA, UNSPECIFIED Qualifiers: Anemia type: B12 deficiency 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 (7) Headache Code(s): R51 - HEADACHE Qualifiers: Headache type: other headache syndrome Qualified Code(s): G44.89 - Other headache syndrome (8) Hypothyroidism Code(s): E03.9 - HYPOTHYROIDISM, UNSPECIFIED (9) Leg pain, left Code(s): M79.605 - PAIN IN LEFT LEG (10) Leg pain, right Code(s): M79.604 - PAIN IN RIGHT LEG (11) Multiple myeloma Code(s): C90.00 - MULTIPLE MYELOMA NOT HAVING ACHIEVED REMISSION Qualifiers: Multiple myeloma remission status: unspecified Qualified Code(s): C90.00 - Multiple myeloma not having achieved remission (12) Thyroid cancer Code(s): C73 - MALIGNANT NEOPLASM OF THYROID GLAND (13) Pneumonia Code(s): J18.9 - PNEUMONIA, UNSPECIFIED ORGANISM (14) Cellulitis of leg, right Code(s): L03.115 - CELLULITIS OF RIGHT LOWER LIMB (15) Respiratory infection Code(s): J98.8 - OTHER SPECIFIED RESPIRATORY DISORDERS Assessment/Plan SWALLOW EVAL ORDERED AND REVIEWED SOFT DIET THIN LIQUIDS R/O ASPIRATIONS ON IV ABX PER ID WOND CARE SUPPLEMENT KCL PT EVAL MENTAL STATUS EVAL NEUROLOGY APPRECIATED LIKELY ALL TOXIC METABOLIC ENCEPHALOPATHY DC PLANNING
[2019-05-17] MEDS: VANCOMYCIN 1 GRAM (PRE-DOCKED) 1,000 MG/250 ML BAG IVPB SCH (11:43)
[2019-05-17] MEDS: POTASSIUM CHLORIDE TABS 20 MEQ TABLET.ER (FP) PO SCH (11:43)
--- NOTE | 2019-05-17 14:39 | PN ---
Progress Note, [employer] - Note Progress Note: Selected Entries 05/16/19 05/16/19 05/16/19 02:35 05:36 14:28 Breakfast Temperature 98.7 F 99.2 F 98.5 F 05/16/19 05/16/19 05/17/19 17:06 22:00 01:47 Breakfast Temperature 97.9 F 99.3 F 99.9 F H 05/17/19 05/17/19 05/17/19 05:34 09:36 11:00 Breakfast 50% Temperature 98.5 F 98.2 F Laboratory Tests 05/16/19 05/17/19 06:40 06:45 WBC 5.5 5.3 Seen lunchtime, slow intake with labored mastication due to missing dentition. Pt prefers soft regular food and seems to be tolerating it. She eats slowly. Intermittently confused.
[2019-05-17] MEDS: traMADol HCL 50 MG TABLET PO PRN (17:01)
[2019-05-17] MEDS ORDERED: WARFARIN NA 7.5 MG TABLET (FP) PO ONE (18:00)
[2019-05-17] MEDS ORDERED: PT OWN MED DRAWER 7, Y5N ONE (18:45)
--- NOTE | 2019-05-17 20:14 | PN ---
Progress Note (short form) - Note Progress Note: I have seen and examined patient with Dr. Fran Davis. Agree with his note and plan. SUBJECTIVE: Voices no complaints. Pleasant. OBJECTIVE: Last Vital Signs Temp Pulse Resp BP Pulse Ox 100.8 F H 73 20 111/54 L 97 05/17/19 17:17 05/17/19 17:17 05/17/19 17:17 05/17/19 17:17 05/17/19 09:00 General: NAD HEENT: MMM CVS: S1, S2 Lungs: CTAB Abdomen: Soft, NT, ND Extremities: hyperpigmentation, covered and with greenish secretions Neuro: Moves all extremities 05/17/19 06:45 05/17/19 06:45 Current Medications Acetaminophen (Tylenol -) 650 mg PO Q8H PRN PRN Reason: PAIN LEVEL 4 - 6 Last Admin: 05/16/19 12:41 Dose: 650 mg Albuterol Sulfate (Ventolin 0.083% Nebulizer Soln -) 1 amp NEB Q6H PRN PRN Reason: SHORT OF BREATH/WHEEZING Amino Acids (Prosource No Carb Liquid Pkt) 30 ml PO DAILY@0800 [facility] Last Admin: 05/17/19 08:55 Dose: 30 ml Ascorbic Acid (Vitamin C -) 500 mg PO DAILY [facility] Last Admin: 05/17/19 10:39 Dose: 500 mg Atorvastatin Calcium (Lipitor -) 40 mg PO HS [facility] Last Admin: 05/16/19 21:50 Dose: 40 mg Famotidine (Pepcid -) 20 mg PO BID [facility] Last Admin: 05/17/19 10:39 Dose: 20 mg Ferrous Sulfate (Feosol -) 325 mg PO DAILY [facility] Last Admin: 05/17/19 10:39 Dose: 325 mg Furosemide (Lasix -) 20 mg PO Q2D [facility] Last Admin: 05/16/19 11:24 Dose: 20 mg Gabapentin (Neurontin -) 600 mg PO TID [facility] Last Admin: 05/17/19 14:19 Dose: 600 mg Piperacillin Sod/Tazobactam (Sod 3.375 gm/ Dextrose) 50 mls @ 100 mls/hr IVPB Q8H-IV [facility]; Protocol Last Admin: 05/17/19 17:01 Dose: 100 mls/hr Levothyroxine Sodium (Synthroid -) 100 mcg PO DAILY@0700 [facility] Last Admin: 05/17/19 06:32 Dose: 100 mcg Magnesium Oxide (Mag-Ox -) 400 mg PO DAILY [facility] Last Admin: 05/17/19 10:39 Dose: 400 mg Memantine (Namenda -) 5 mg PO BID [facility] Last Admin: 05/17/19 10:39 Dose: 5 mg Metoprolol Succinate (Toprol Xl -) 25 mg PO DAILY [facility] Last Admin: 05/17/19 10:39 Dose: 25 mg Mometasone Furoate (Asmanex 220mcg -) 1 puff IH DAILY [facility] Last Admin: 05/17/19 10:39 Dose: 1 puff Multi-Ingredient Ointment (Zinc Oxide) 1 applic TP TID [facility] Last Admin: 05/17/19 14:20 Dose: 1 applic Multivitamins/Minerals/Vitamin C (Tab-A-Vit -) 1 tab PO DAILY [facility] Last Admin: 05/17/19 10:39 Dose: 1 tab Non-Formulary Medication (Lenalidomide [Revlimid]) 1 tab PO DAILY [facility] Potassium Chloride (K-Dur -) 20 meq PO DAILY [facility] Last Admin: 05/17/19 11:43 Dose: 20 meq Pramipexole Dihydrochloride (Mirapex -) 0.25 mg PO TID [facility] Last Admin: 05/17/19 14:19 Dose: 0.25 mg Tramadol HCl (Ultram -) 50 mg PO Q8H PRN PRN Reason: PAIN LEVEL 1-5 Last Admin: 05/17/19 17:01 Dose: 50 mg ASSESSMENT/PLAN: 88 y/o lady with MM on RVD admitted with cellulitis/sepsis, supratherapeutic INR /coagulopathy. Recommend: 1) Anemia, multifactorial. Monitor HH.FOBT and UA. Close monitoring due to acuteness. BM suppression due to sepsis likely. 2) MM on RVD. Will resume upon discharge with Dr. Marie 3) Supratherapeutic INR. INR now 2.6. Warfarin restarted by primary team. monitor INR and adjust accordingly. 4) Antibiotic therapy per ID team. Maikol Jones. John 5) Rest per Dr. Davis's note.
[2019-05-17] MEDS: ATORVASTATIN CA 40 MG TABLET (FP) PO SCH (22:01)
--- NOTE | 2019-05-17 22:40 | PN ---
Progress Note, Physician History of Present Illness: AWAKE IN BED MILDLY CONFUSED OFFERS NO COMPLAINTS TEMP NOTED BC MORGANELLA URINE C/S GNR - Current Medication List Current Medications: Active Medications Acetaminophen (Tylenol -) 650 mg PO Q8H PRN PRN Reason: PAIN LEVEL 4 - 6 Last Admin: 05/16/19 12:41 Dose: 650 mg Albuterol Sulfate (Ventolin 0.083% Nebulizer Soln -) 1 amp NEB Q6H PRN PRN Reason: SHORT OF BREATH/WHEEZING Amino Acids (Prosource No Carb Liquid Pkt) 30 ml PO DAILY@0800 [facility] Last Admin: 05/17/19 08:55 Dose: 30 ml Ascorbic Acid (Vitamin C -) 500 mg PO DAILY [facility] Last Admin: 05/17/19 10:39 Dose: 500 mg Atorvastatin Calcium (Lipitor -) 40 mg PO HS [facility] Last Admin: 05/17/19 22:01 Dose: 40 mg Famotidine (Pepcid -) 20 mg PO BID [facility] Last Admin: 05/17/19 22:01 Dose: 20 mg Ferrous Sulfate (Feosol -) 325 mg PO DAILY [facility] Last Admin: 05/17/19 10:39 Dose: 325 mg Furosemide (Lasix -) 20 mg PO Q2D [facility] Last Admin: 05/16/19 11:24 Dose: 20 mg Gabapentin (Neurontin -) 600 mg PO TID [facility] Last Admin: 05/17/19 22:00 Dose: 600 mg Piperacillin Sod/Tazobactam (Sod 3.375 gm/ Dextrose) 50 mls @ 100 mls/hr IVPB Q8H-IV [facility]; Protocol Last Admin: 05/17/19 17:01 Dose: 100 mls/hr Levothyroxine Sodium (Synthroid -) 100 mcg PO DAILY@0700 [facility] Last Admin: 05/17/19 06:32 Dose: 100 mcg Magnesium Oxide (Mag-Ox -) 400 mg PO DAILY [facility] Last Admin: 05/17/19 10:39 Dose: 400 mg Memantine (Namenda -) 5 mg PO BID [facility] Last Admin: 05/17/19 22:01 Dose: 5 mg Metoprolol Succinate (Toprol Xl -) 25 mg PO DAILY [facility] Last Admin: 05/17/19 10:39 Dose: 25 mg Mometasone Furoate (Asmanex 220mcg -) 1 puff IH DAILY [facility] Last Admin: 05/17/19 10:39 Dose: 1 puff Multi-Ingredient Ointment (Zinc Oxide) 1 applic TP TID [facility] Last Admin: 05/17/19 22:01 Dose: 1 applic Multivitamins/Minerals/Vitamin C (Tab-A-Vit -) 1 tab PO DAILY [facility] Last Admin: 05/17/19 10:39 Dose: 1 tab Non-Formulary Medication (Lenalidomide [Revlimid]) 1 tab PO DAILY [facility] Potassium Chloride (K-Dur -) 20 meq PO DAILY [facility] Last Admin: 05/17/19 11:43 Dose: 20 meq Pramipexole Dihydrochloride (Mirapex -) 0.25 mg PO TID [facility] Last Admin: 05/17/19 22:01 Dose: 0.25 mg Tramadol HCl (Ultram -) 50 mg PO Q8H PRN PRN Reason: PAIN LEVEL 1-5 Last Admin: 05/17/19 17:01 Dose: 50 mg - Objective Vital Signs: Vital Signs Temperature 99 F 05/17/19 22:00 Pulse Rate 69 05/17/19 22:00 Respiratory Rate 18 05/17/19 22:00 Blood Pressure 112/58 L 05/17/19 22:00 O2 Sat by Pulse Oximetry (%) 97 05/17/19 21:00 Constitutional: Yes: No Distress Eyes: Yes: Conjunctiva Clear Cardiovascular: Yes: Regular Rate and Rhythm, S1, S2 Respiratory: Yes: CTA Bilaterally Gastrointestinal: Yes: Normal Bowel Sounds, Soft Edema: Yes Integumentary: Yes: Other (+ L LE ULCER WITH DRAINAGE) Labs: CBC, BMP 05/17/19 06:45 05/17/19 06:45 INR, PTT INR 2.68 (0.83-1.09) H 05/17/19 06:45 Assessment/Plan GRAM NEGATIVE BACTEREMIA UTI POSSIBLE SEPSIS SECONDARY TO UTI INFECTED L LE ULCER AWAIT URINE C/S CONTINUE ZOSYN LOCAL WOUND CARE
[2019-05-18] MEDS ORDERED: DEXTROSE 5%-WATER - 50 ML IVPB ONE ×3 (02:05→16:50)
[2019-05-18] MEDS ORDERED: PIPERACILLIN/TAZOBACTAM 3.375 GM VIAL IVPB ONE ×3 (02:05→16:49)
[2019-05-18] MEDS: PIPERACILLIN/TAZOB 3.375 GM 3.375 GM in DEXTROSE 5%-WATER - 50 ML IVPB SCH ×3 (02:42→17:25)
[2019-05-18] MEDS: GABAPENTIN 300 MG CAPSULE PO SCH ×3 (05:16→22:57)
[2019-05-18] MEDS: ZINC OXIDE 20% TOPICAL OINTMENT 30 GM TUBE TP SCH ×3 (05:18→22:59)
[2019-05-18] MEDS: PRAMIPEXOLE DIHYDROCHLORIDE 0.25 MG TABLET PO SCH ×3 (05:18→22:57)
[2019-05-18] MEDS ORDERED: INSULIN (NOVOLOG) ASPART 100 UNITS/ML 10ML VIAL ONE (06:50)
[2019-05-18 06:55] LABS: HEMATOCRIT 29.5 % (32.4-45.2); HEMOGLOBIN 9.7 GM/dL (10.7-15.3); MCH 30.8 pg (25.7-33.7); MEAN CELL VOLUME 93.4 fl (80-96); MEAN PLT VOLUME 8.9 fl (7.5-11.1); PLATELET COUNT 83 K/MM3 (134-434); RBC 3.16 M/mm3 (3.60-5.2); WHITE BLOOD COUNT 6.4 K/mm3 (4.0-10.0)
[2019-05-18] MEDS: LEVOTHYROXINE NA 100 MCG TABLET (FP) PO SCH (07:08)
[2019-05-18 07:18] LABS: INR 2.04 (0.83-1.09); PROTHROMBIN TIME (PATIENT) 24.3 SEC (9.7-13.0)
[2019-05-18 07:31] LABS: BLOOD UREA NITROGEN 29.5 mg/dL (7-18); CREATININE 1.5 mg/dL (0.55-1.3); POTASSIUM 3.3 mmol/L (3.5-5.1)
--- NOTE | 2019-05-18 09:18 | DS ---
Physical Examination Vital Signs: Vital Signs Temperature 99.4 F 05/18/19 06:13 Pulse Rate 73 05/18/19 06:13 Respiratory Rate 18 05/18/19 06:13 Blood Pressure 99/46 L 05/18/19 06:13 O2 Sat by Pulse Oximetry (%) 97 05/17/19 21:00 Labs: CBC, BMP 05/18/19 06:25 05/18/19 06:25 Discharge Summary Problems reviewed: Yes Reason For Visit: ALTERED MENTAL STATUS, PNEUMONIA Current Active Problems Altered mental state (Acute) Atelectasis (Acute) PNA (pneumonia) (Acute) Pneumonia (Acute) Sepsis (Acute) Condition: Stable - Instructions Referrals: Tacos Rowe MD [Primary Care Provider] - - Home Medications Comprehensive Discharge Medication List: Ambulatory Orders Acetaminophen [Tylenol] 2 tab PO Q8H PRN 10/24/18 Albuterol Sulfate [Proair Hfa] 1 puff IH Q6H PRN 10/24/18 Atorvastatin Ca [Lipitor] 1 tab PO HS 10/24/18 Dexamethasone 5 tab PO ASDIR 10/24/18 Ferrous Sulfate [Feosol] 1 tab PO DAILY 10/24/18 Fluticasone Furoate [Arnuity Ellipta] 2 puff IH DAILY 10/24/18 Gabapentin 1 tab PO TID 10/24/18 Lenalidomide [Revlimid] 1 tab PO DAILY 10/24/18 Magnesium Oxide [Magnesium] 1 tab PO DAILY 10/24/18 Memantine HCl [Namenda -] 1 tab PO Q12H 10/24/18 Metoprolol Succinate [Toprol Xl] 25 mg PO DAILY 10/24/18 Multivitamin [Multiple Vitamins] 1 tab PO DAILY 10/24/18 Pramipexole Di-HCl [Mirapex] 1 tab PO TID 10/24/18 Tramadol HCl 1 tab PO Q8H PRN 10/24/18 Warfarin Sodium [Coumadin] 6 mg PO HS 10/31/18 Famotidine [Pepcid -] 20 mg PO BID tablet 02/09/19 Levothyroxine [Synthroid -] 100 mcg PO DAILY@0700 tablet 02/09/19 Aa/Hydrolyzed Collagen, Whey [Lps 15-30 Liquid] 30 ml PO DAILY 05/15/19 Ascorbic Acid [Vitamin C] 500 mg PO DAILY 05/15/19 Furosemide [Lasix -] 20 mg PO Q48H 05/15/19 Lactobacillus Acidophilus [Acidophilus] 1 each PO ASDIR 05/15/19 Zinc Oxide 20% Topical Oint 1 applic TP Q8H 05/15/19 Memantine HCl [Namenda -] 5 mg PO BID tab 05/17/19 Potassium Chloride [K-Dur -] 20 meq PO DAILY tablet.er 05/17/19 levoFLOXacin [Levaquin -] 250 mg PO Q48H #7 tablet 05/17/19
[2019-05-18] MEDS: MAGNESIUM OXIDE 400 MG TABLET (FP) PO SCH (10:37)
[2019-05-18] MEDS: ASCORBIC ACID 500 MG TABLET (FP) PO SCH (10:37)
[2019-05-18] MEDS: MULTIVITAMINS (DAILY MVI) TABLET (FP) PO SCH (10:37)
[2019-05-18] MEDS: FUROSEMIDE 20 MG TABLET (FP) PO SCH (10:37)
[2019-05-18] MEDS: MEMANTINE HCL 5 MG TABLET (UD) PO SCH ×2 (10:37→22:58)
[2019-05-18] MEDS: metoPROLOL SUCCINATE 25 MG TAB.SR.24H (FP) PO SCH (10:37)
[2019-05-18] MEDS: FAMOTIDINE 20 MG TABLET PO SCH ×2 (10:37→22:57)
[2019-05-18] MEDS: POTASSIUM CHLORIDE TABS 20 MEQ TABLET.ER (FP) PO SCH (10:37)
[2019-05-18] MEDS: MOMETASONE FUROATE 220 MCG/IH INHALER IH SCH (10:38)
[2019-05-18] MEDS: AMINO ACIDS/PROTEIN HYDROLYS 30 ML LIQUID.PKT PO SCH (10:38)
[2019-05-18] MEDS: FERROUS SO4 325 MG TABLET (FP) PO SCH (10:38)
--- NOTE | 2019-05-18 12:13 | PN ---
Progress Note (short form) - Note Progress Note: Patient seen and examined Remains confused hard of hearing Last Vital Signs Temp Pulse Resp BP Pulse Ox 99.4 F 73 18 99/46 L 97 05/18/19 06:13 05/18/19 06:13 05/18/19 06:13 05/18/19 06:13 05/17/19 21:00 HEENT: EBEN, EOM Intact Cor: RSR, No murmurs, No gallops Lungs: Clear to P&A Abd: Soft, Normal bowel sounds, No organomegaly Ext:LE edema Skin: right lower extremity ulcer /breakdown CBC, BMP 05/18/19 06:25 05/18/19 06:25 Microbiology 05/14/19 21:45 Blood - Peripheral Venous Blood Culture - Preliminary NO GROWTH OBTAINED AFTER 72 HOURS, INCUBATION TO CONTINUE FOR 2 DAYS. 05/14/19 21:45 Blood - Peripheral Venous Blood Culture - Final Morganella Morganii 05/15/19 01:40 Urine - Urine - Catheterized Urine Culture - Final Lactose Fermenting Neg Bacilli Current Medications Generic Name Dose Route Start Last Admin Trade Name Freq PRN Reason Stop Dose Admin Acetaminophen 650 mg 05/15/19 17:12 05/16/19 12:41 Tylenol - PO 650 mg Q8H PRN Administration PAIN LEVEL 4 - 6 Albuterol Sulfate 1 amp 05/15/19 17:20 Ventolin 0.083% Nebulizer Soln - NEB Q6H PRN SHORT OF BREATH/WHEEZING Amino Acids 30 ml 05/16/19 08:00 05/18/19 10:38 Prosource No Carb Liquid Pkt PO 30 ml DAILY@0800 [facility] Administration Ascorbic Acid 500 mg 05/16/19 10:00 05/18/19 10:37 Vitamin C - PO 500 mg DAILY [facility] Administration Atorvastatin Calcium 40 mg 05/15/19 22:00 05/17/19 22:01 Lipitor - PO 40 mg HS [facility] Administration Famotidine 20 mg 05/15/19 22:00 05/18/19 10:37 Pepcid - PO 20 mg BID [facility] Administration Ferrous Sulfate 325 mg 05/16/19 10:00 05/18/19 10:38 Feosol - PO 325 mg DAILY [facility] Administration Furosemide 20 mg 05/16/19 10:00 05/18/19 10:37 Lasix - PO 20 mg Q2D [facility] Administration Gabapentin 600 mg 05/15/19 22:00 05/18/19 05:16 Neurontin - PO 600 mg TID [facility] Administration Piperacillin Sod/Tazobactam 50 mls @ 100 mls/hr 05/15/19 18:00 05/18/19 10:36 Sod 3.375 gm/ Dextrose IVPB 100 mls/hr Q8H-IV [facility] Administration Protocol Levothyroxine Sodium 100 mcg 05/16/19 07:00 05/18/19 07:08 Synthroid - PO 100 mcg DAILY@0700 [facility] Administration Magnesium Oxide 400 mg 05/16/19 10:00 05/18/19 10:37 Mag-Ox - PO 400 mg DAILY [facility] Administration Memantine 5 mg 05/15/19 22:00 05/18/19 10:37 Namenda - PO 5 mg BID [facility] Administration Metoprolol Succinate 25 mg 05/16/19 10:00 05/18/19 10:37 Toprol Xl - PO 25 mg DAILY [facility] Administration Mometasone Furoate 1 puff 05/16/19 10:00 05/18/19 10:38 Asmanex 220mcg - IH 1 puff DAILY [facility] Administration Multi-Ingredient Ointment 1 applic 05/15/19 22:00 05/18/19 05:18 Zinc Oxide TP 1 applic TID [facility] Administration Multivitamins/Minerals/Vitamin C 1 tab 05/16/19 10:00 05/18/19 10:37 Tab-A-Vit - PO 1 tab DAILY [facility] Administration Non-Formulary Medication 1 tab 05/16/19 10:00 Lenalidomide [Revlimid] PO DAILY [facility] Potassium Chloride 20 meq 05/17/19 12:00 05/18/19 10:37 K-Dur - PO 20 meq DAILY [facility] Administration Pramipexole Dihydrochloride 0.25 mg 05/15/19 22:00 05/18/19 05:18 Mirapex - PO 0.25 mg TID [facility] Administration Tramadol HCl 50 mg 05/15/19 17:12 05/17/19 17:01 Ultram - PO 50 mg Q8H PRN Administration PAIN LEVEL 1-5 Impression: Multiple myeloma Confusion - likely toxic -metabolic Bacteremia UTI Hypernatremia Hypokalemia Suggest - antibiotics per ID would hold lasix (Na+--149) Replete K+ Holding on velcade.
--- NOTE | 2019-05-18 12:38 | PN ---
Progress Note (short form) - Note Progress Note: PULMONARY LOW GRADE TEMP NOTED AWAKE/ALERT Constitutional: Yes: No Distress, Thin Eyes: Yes: Conjunctiva Clear, EOM Intact HENT: Yes: Atraumatic, Normocephalic Neck: Yes: Supple, Trachea Midline Cardiovascular: Yes: Pulse Irregular Respiratory: Yes: diminished, On Nasal O2, Rhonchi. No: Rales, SOB, SOB on Exertion, Stridor, Tachypnea, Wheezes ...Inspection: Yes: WNL ...Clubbing: No Gastrointestinal: Yes: Normal Bowel Sounds, Soft Renal/: Yes: WNL Musculoskeletal: Yes: WNL Extremities: Yes: Other (ulcer ) Edema: No Peripheral Pulses WNL: Yes Integumentary: Yes: Erythema, Venous Stasis Changes, Other (ulcer) Neurological: Yes: Awake and alert, Non-focal LABS/MEDS/NOTES REVIEWED - Problems (1) Atelectasis Code(s): J98.11 - ATELECTASIS (2) Sepsis Code(s): A41.9 - SEPSIS, UNSPECIFIED ORGANISM (3) Altered mental state Code(s): R41.82 - ALTERED MENTAL STATUS, UNSPECIFIED Qualifiers: Altered mental status type: disorientation Qualified Code(s): R41.0 - Disorientation, unspecified (4) PNA (pneumonia) Code(s): J18.9 - PNEUMONIA, UNSPECIFIED ORGANISM Qualifiers: Pneumonia type: due to unspecified organism Laterality: right Lung location: lower lobe of lung Qualified Code(s): J18.9 - Pneumonia, unspecified organism (5) Afib Code(s): I48.91 - UNSPECIFIED ATRIAL FIBRILLATION (6) Anemia Code(s): D64.9 - ANEMIA, UNSPECIFIED Qualifiers: Anemia type: B12 deficiency 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 (7) CHF (congestive heart failure) Code(s): I50.9 - HEART FAILURE, UNSPECIFIED (8) Cellulitis Code(s): L03.90 - CELLULITIS, UNSPECIFIED Qualifiers: Site of cellulitis: extremity Site of cellulitis of extremity: lower extremity Laterality: left Qualified Code(s): L03.116 - Cellulitis of left lower limb (9) Cough Code(s): R05 - COUGH (10) HTN (hypertension) Code(s): I10 - ESSENTIAL (PRIMARY) HYPERTENSION (11) Hypotension Code(s): I95.9 - HYPOTENSION, UNSPECIFIED (12) Multiple myeloma Code(s): C90.00 - MULTIPLE MYELOMA NOT HAVING ACHIEVED REMISSION Qualifiers: Multiple myeloma remission status: unspecified Qualified Code(s): C90.00 - Multiple myeloma not having achieved remission (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
--- NOTE | 2019-05-18 13:03 | PN ---
Progress Note, Physician History of Present Illness: AWAKE IN BED MILDLY CONFUSED OFFERS NO COMPLAINTS TEMP 100.8 NOTED BC MORGANELLA URINE C/S GNR PLATELETS LOWER AZOTEMIA SL WORSE - Current Medication List Current Medications: Active Medications Acetaminophen (Tylenol -) 650 mg PO Q8H PRN PRN Reason: PAIN LEVEL 4 - 6 Last Admin: 05/16/19 12:41 Dose: 650 mg Albuterol Sulfate (Ventolin 0.083% Nebulizer Soln -) 1 amp NEB Q6H PRN PRN Reason: SHORT OF BREATH/WHEEZING Amino Acids (Prosource No Carb Liquid Pkt) 30 ml PO DAILY@0800 [facility] Last Admin: 05/18/19 10:38 Dose: 30 ml Ascorbic Acid (Vitamin C -) 500 mg PO DAILY [facility] Last Admin: 05/18/19 10:37 Dose: 500 mg Atorvastatin Calcium (Lipitor -) 40 mg PO HS [facility] Last Admin: 05/17/19 22:01 Dose: 40 mg Famotidine (Pepcid -) 20 mg PO BID [facility] Last Admin: 05/18/19 10:37 Dose: 20 mg Ferrous Sulfate (Feosol -) 325 mg PO DAILY [facility] Last Admin: 05/18/19 10:38 Dose: 325 mg Furosemide (Lasix -) 20 mg PO Q2D [facility] Last Admin: 05/18/19 10:37 Dose: 20 mg Gabapentin (Neurontin -) 600 mg PO TID [facility] Last Admin: 05/18/19 05:16 Dose: 600 mg Piperacillin Sod/Tazobactam (Sod 3.375 gm/ Dextrose) 50 mls @ 100 mls/hr IVPB Q8H-IV [facility]; Protocol Last Admin: 05/18/19 10:36 Dose: 100 mls/hr Levothyroxine Sodium (Synthroid -) 100 mcg PO DAILY@0700 [facility] Last Admin: 05/18/19 07:08 Dose: 100 mcg Magnesium Oxide (Mag-Ox -) 400 mg PO DAILY [facility] Last Admin: 05/18/19 10:37 Dose: 400 mg Memantine (Namenda -) 5 mg PO BID [facility] Last Admin: 05/18/19 10:37 Dose: 5 mg Metoprolol Succinate (Toprol Xl -) 25 mg PO DAILY [facility] Last Admin: 05/18/19 10:37 Dose: 25 mg Mometasone Furoate (Asmanex 220mcg -) 1 puff IH DAILY [facility] Last Admin: 05/18/19 10:38 Dose: 1 puff Multi-Ingredient Ointment (Zinc Oxide) 1 applic TP TID [facility] Last Admin: 05/18/19 05:18 Dose: 1 applic Multivitamins/Minerals/Vitamin C (Tab-A-Vit -) 1 tab PO DAILY [facility] Last Admin: 05/18/19 10:37 Dose: 1 tab Non-Formulary Medication (Lenalidomide [Revlimid]) 1 tab PO DAILY [facility] Potassium Chloride (K-Dur -) 20 meq PO DAILY [facility] Last Admin: 05/18/19 10:37 Dose: 20 meq Pramipexole Dihydrochloride (Mirapex -) 0.25 mg PO TID [facility] Last Admin: 05/18/19 05:18 Dose: 0.25 mg Tramadol HCl (Ultram -) 50 mg PO Q8H PRN PRN Reason: PAIN LEVEL 1-5 Last Admin: 05/17/19 17:01 Dose: 50 mg - Objective Vital Signs: Vital Signs Temperature 100.3 F H 05/18/19 10:00 Pulse Rate 73 05/18/19 10:00 Respiratory Rate 18 05/18/19 10:00 Blood Pressure 105/43 L 05/18/19 10:00 O2 Sat by Pulse Oximetry (%) 97 05/17/19 21:00 Constitutional: Yes: No Distress Eyes: Yes: Conjunctiva Clear Cardiovascular: Yes: Regular Rate and Rhythm, S1, S2 Respiratory: Yes: CTA Bilaterally Gastrointestinal: Yes: Normal Bowel Sounds, Soft. No: Tenderness Extremities: Yes: Other (L LE ERYTHEMA RESOLVED STILL WARM L LE ULCER WITH DRAINAGE) Edema: Yes Edema: LLE: 1+, RLE: 1+ Labs: CBC, BMP 05/18/19 06:25 05/18/19 06:25 INR, PTT INR 2.04 (0.83-1.09) H 05/18/19 06:25 Assessment/Plan GRAM NEGATIVE BACTEREMIA MORGANELLA UTI POSSIBLE SEPSIS SECONDARY TO UTI INFECTED L LE ULCER AWAIT URINE C/S CONTINUE ZOSYN LOCAL WOUND CARE
--- NOTE | 2019-05-18 13:51 | PN ---
Progress Note, Physician History of Present Illness: weakness - Current Medication List Current Medications: Active Medications Acetaminophen (Tylenol -) 650 mg PO Q8H PRN PRN Reason: PAIN LEVEL 4 - 6 Last Admin: 05/16/19 12:41 Dose: 650 mg Albuterol Sulfate (Ventolin 0.083% Nebulizer Soln -) 1 amp NEB Q6H PRN PRN Reason: SHORT OF BREATH/WHEEZING Amino Acids (Prosource No Carb Liquid Pkt) 30 ml PO DAILY@0800 [facility] Last Admin: 05/18/19 10:38 Dose: 30 ml Ascorbic Acid (Vitamin C -) 500 mg PO DAILY [facility] Last Admin: 05/18/19 10:37 Dose: 500 mg Atorvastatin Calcium (Lipitor -) 40 mg PO HS [facility] Last Admin: 05/17/19 22:01 Dose: 40 mg Famotidine (Pepcid -) 20 mg PO BID [facility] Last Admin: 05/18/19 10:37 Dose: 20 mg Ferrous Sulfate (Feosol -) 325 mg PO DAILY [facility] Last Admin: 05/18/19 10:38 Dose: 325 mg Furosemide (Lasix -) 20 mg PO Q2D [facility] Last Admin: 05/18/19 10:37 Dose: 20 mg Gabapentin (Neurontin -) 600 mg PO TID [facility] Last Admin: 05/18/19 05:16 Dose: 600 mg Piperacillin Sod/Tazobactam (Sod 3.375 gm/ Dextrose) 50 mls @ 100 mls/hr IVPB Q8H-IV [facility]; Protocol Last Admin: 05/18/19 10:36 Dose: 100 mls/hr Levothyroxine Sodium (Synthroid -) 100 mcg PO DAILY@0700 [facility] Last Admin: 05/18/19 07:08 Dose: 100 mcg Magnesium Oxide (Mag-Ox -) 400 mg PO DAILY [facility] Last Admin: 05/18/19 10:37 Dose: 400 mg Memantine (Namenda -) 5 mg PO BID [facility] Last Admin: 05/18/19 10:37 Dose: 5 mg Metoprolol Succinate (Toprol Xl -) 25 mg PO DAILY [facility] Last Admin: 05/18/19 10:37 Dose: 25 mg Mometasone Furoate (Asmanex 220mcg -) 1 puff IH DAILY [facility] Last Admin: 05/18/19 10:38 Dose: 1 puff Multi-Ingredient Ointment (Zinc Oxide) 1 applic TP TID [facility] Last Admin: 05/18/19 05:18 Dose: 1 applic Multivitamins/Minerals/Vitamin C (Tab-A-Vit -) 1 tab PO DAILY [facility] Last Admin: 05/18/19 10:37 Dose: 1 tab Non-Formulary Medication (Lenalidomide [Revlimid]) 1 tab PO DAILY [facility] Potassium Chloride (K-Dur -) 20 meq PO DAILY [facility] Last Admin: 05/18/19 10:37 Dose: 20 meq Pramipexole Dihydrochloride (Mirapex -) 0.25 mg PO TID [facility] Last Admin: 05/18/19 05:18 Dose: 0.25 mg Tramadol HCl (Ultram -) 50 mg PO Q8H PRN PRN Reason: PAIN LEVEL 1-5 Last Admin: 05/17/19 17:01 Dose: 50 mg - Objective Vital Signs: Vital Signs Temperature 100.3 F H 05/18/19 10:00 Pulse Rate 73 05/18/19 10:00 Respiratory Rate 18 05/18/19 10:00 Blood Pressure 105/43 L 05/18/19 10:00 O2 Sat by Pulse Oximetry (%) 97 05/17/19 21:00 Cardiovascular: Yes: S1, S2 Respiratory: Yes: Diminished, On Nasal O2 Gastrointestinal: Yes: Normal Bowel Sounds, Soft Labs: CBC, BMP 05/18/19 06:25 05/18/19 06:25 INR, PTT INR 2.04 (0.83-1.09) H 05/18/19 06:25 Problem List - Problems (1) Bacteremia Assessment/Plan: abx per id follow up labs Microbiology 05/14/19 21:45 Blood - Peripheral Venous Blood Culture - Preliminary NO GROWTH OBTAINED AFTER 72 HOURS, INCUBATION TO CONTINUE FOR 2 DAYS. 05/14/19 21:45 Blood - Peripheral Venous Blood Culture - Final Morganella Morganii 05/15/19 01:40 Urine - Urine - Catheterized Urine Culture - Final Lactose Fermenting Neg Bacilli Code(s): R78.81 - BACTEREMIA (2) Altered mental state Assessment/Plan: -Head CT scan shows no CT evidence of acute intracranial pathology -possibly secondary to infection Code(s): R41.82 - ALTERED MENTAL STATUS, UNSPECIFIED Qualifiers: Altered mental status type: disorientation Qualified Code(s): R41.0 - Disorientation, unspecified (3) PNA (pneumonia) Assessment/Plan: -CXR shows cardiomegaly with mild pulmonary venous congestion vs chronic interstitial lung disease, interval mild atelectatic changes vs infiltrates in left lung base -Pulmonary consult -Influenza neg -ABX per ID Code(s): J18.9 - PNEUMONIA, UNSPECIFIED ORGANISM Qualifiers: Pneumonia type: due to unspecified organism Laterality: right Lung location: lower lobe of lung Qualified Code(s): J18.9 - Pneumonia, unspecified organism (4) Afib Assessment/Plan: -Coumadin per inr -monitor INR daily -therapeutic goal 2-3 Code(s): I48.91 - UNSPECIFIED ATRIAL FIBRILLATION (5) Multiple myeloma Assessment/Plan: -Oncology consult -Revlimid Code(s): C90.00 - MULTIPLE MYELOMA NOT HAVING ACHIEVED REMISSION Qualifiers: Multiple myeloma remission status: unspecified Qualified Code(s): C90.00 - Multiple myeloma not having achieved remission (6) Venous stasis ulcer Assessment/Plan: Vascular on board -daily dressing change -RLE treat with calcium alginare and compression dressing -LLE treat with xeroform and compression dressing Code(s): I83.009 - VARICOSE VEINS OF UNSP LOWER EXTREMITY W ULCER OF UNSP SITE; L97.909 - NON-PRS CHRONIC ULC UNSP PRT OF UNSP LOW LEG W UNSP SEVERITY
[2019-05-18] MEDS ORDERED: POTASSIUM CHLORIDE TABS 20 MEQ TABLET.ER (FP) PO ONE (14:21)
[2019-05-18] MEDS: D5-1/2NS+30 MEQ KCL - 30 MEQ/1,000 ML INFUS.BAG IV SCH (15:09)
[2019-05-18] MEDS: ATORVASTATIN CA 40 MG TABLET (FP) PO SCH (22:58)
[2019-05-19] MEDS ORDERED: DEXTROSE 5%-WATER - 50 ML IVPB ONE ×3 (03:07→17:32)
[2019-05-19] MEDS ORDERED: PIPERACILLIN/TAZOBACTAM 3.375 GM VIAL IVPB ONE ×3 (03:07→17:32)
[2019-05-19] MEDS: PIPERACILLIN/TAZOB 3.375 GM 3.375 GM in DEXTROSE 5%-WATER - 50 ML IVPB SCH ×3 (03:27→17:51)
[2019-05-19] MEDS: GABAPENTIN 300 MG CAPSULE PO SCH ×3 (06:05→22:12)
[2019-05-19] MEDS: ZINC OXIDE 20% TOPICAL OINTMENT 30 GM TUBE TP SCH ×3 (06:07→22:13)
[2019-05-19] MEDS: PRAMIPEXOLE DIHYDROCHLORIDE 0.25 MG TABLET PO SCH ×3 (06:07→22:12)
[2019-05-19] MEDS: LEVOTHYROXINE NA 100 MCG TABLET (FP) PO SCH (06:08)
[2019-05-19 09:00] LABS: BASO % 0.2 % (0-2.0); EOS % 0.3 % (0-4.5); HEMATOCRIT 31.1 % (32.4-45.2); HEMOGLOBIN 10.3 GM/dL (10.7-15.3); LYMPH % 3.5 % (8-40); MCH 30.6 pg (25.7-33.7); MEAN CELL VOLUME 92.6 fl (80-96); MEAN PLT VOLUME 9.4 fl (7.5-11.1); MONO % 9.4 % (3.8-10.2); NEUT % 86.6 % (42.8-82.8); PLATELET COUNT 103 K/MM3 (134-434); RBC 3.36 M/mm3 (3.60-5.2); RDW 19.9 % (11.6-15.6); WHITE BLOOD COUNT 7.8 K/mm3 (4.0-10.0)
[2019-05-19 09:11] LABS: INR 2.44 (0.83-1.09); PROTHROMBIN TIME (PATIENT) 29.1 SEC (9.7-13.0)
[2019-05-19 09:22] LABS: ALBUMIN 1.5 g/dl (3.4-5.0); BILIRUBIN,TOTAL 1.2 mg/dL (0.2-1); CREATININE 1.5 mg/dL (0.55-1.3); POTASSIUM 3.5 mmol/L (3.5-5.1); TOT PROT 4.7 g/dl (6.4-8.2)
--- NOTE | 2019-05-19 10:30 | PN ---
Progress Note, Physician Chief Complaint: AWAKE CONFUSED EVENTS REVIEWED - Current Medication List Current Medications: Active Medications Acetaminophen (Tylenol -) 650 mg PO Q8H PRN PRN Reason: PAIN LEVEL 4 - 6 Last Admin: 05/16/19 12:41 Dose: 650 mg Albuterol Sulfate (Ventolin 0.083% Nebulizer Soln -) 1 amp NEB Q6H PRN PRN Reason: SHORT OF BREATH/WHEEZING Amino Acids (Prosource No Carb Liquid Pkt) 30 ml PO DAILY@0800 [facility] Last Admin: 05/18/19 10:38 Dose: 30 ml Ascorbic Acid (Vitamin C -) 500 mg PO DAILY [facility] Last Admin: 05/18/19 10:37 Dose: 500 mg Famotidine (Pepcid -) 20 mg PO BID [facility] Last Admin: 05/18/19 22:57 Dose: 20 mg Ferrous Sulfate (Feosol -) 325 mg PO DAILY [facility] Last Admin: 05/18/19 10:38 Dose: 325 mg Furosemide (Lasix -) 20 mg PO Q2D [facility] Last Admin: 05/18/19 10:37 Dose: 20 mg Gabapentin (Neurontin -) 600 mg PO TID [facility] Last Admin: 05/19/19 06:05 Dose: 600 mg Piperacillin Sod/Tazobactam (Sod 3.375 gm/ Dextrose) 50 mls @ 100 mls/hr IVPB Q8H-IV [facility]; Protocol Last Admin: 05/19/19 03:27 Dose: 100 mls/hr Potassium Chloride/Dextrose/Sod Cl (D5-1/2ns+30 Meq Kcl -) 30 meq in 1,000 mls @ 83 mls/hr IV ASDIR [facility] Last Admin: 05/18/19 15:09 Dose: 83 mls/hr Levothyroxine Sodium (Synthroid -) 100 mcg PO DAILY@0700 [facility] Last Admin: 05/19/19 06:08 Dose: 100 mcg Magnesium Oxide (Mag-Ox -) 400 mg PO DAILY [facility] Last Admin: 05/18/19 10:37 Dose: 400 mg Memantine (Namenda -) 5 mg PO BID [facility] Last Admin: 05/18/19 22:58 Dose: 5 mg Metoprolol Succinate (Toprol Xl -) 25 mg PO DAILY [facility] Last Admin: 05/18/19 10:37 Dose: 25 mg Mometasone Furoate (Asmanex 220mcg -) 1 puff IH DAILY [facility] Last Admin: 05/18/19 10:38 Dose: 1 puff Multi-Ingredient Ointment (Zinc Oxide) 1 applic TP TID [facility] Last Admin: 05/19/19 06:07 Dose: 1 applic Multivitamins/Minerals/Vitamin C (Tab-A-Vit -) 1 tab PO DAILY [facility] Last Admin: 05/18/19 10:37 Dose: 1 tab Non-Formulary Medication (Lenalidomide [Revlimid]) 1 tab PO DAILY [facility] Potassium Chloride (K-Dur -) 20 meq PO DAILY [facility] Last Admin: 05/18/19 10:37 Dose: 20 meq Pramipexole Dihydrochloride (Mirapex -) 0.25 mg PO TID [facility] Last Admin: 05/19/19 06:07 Dose: 0.25 mg Tramadol HCl (Ultram -) 50 mg PO Q8H PRN PRN Reason: PAIN LEVEL 1-5 Last Admin: 05/17/19 17:01 Dose: 50 mg - Objective Vital Signs: Vital Signs Temperature 98.7 F 05/19/19 06:00 Pulse Rate 72 05/19/19 06:00 Respiratory Rate 20 05/19/19 06:00 Blood Pressure 115/49 L 05/19/19 06:00 O2 Sat by Pulse Oximetry (%) 97 05/18/19 21:00 Constitutional: Yes: Mild Distress Cardiovascular: Yes: Regular Rate and Rhythm Respiratory: Yes: Diminished Gastrointestinal: Yes: Soft Genitourinary: Yes: Incontinence Integumentary: Yes: Pressure Ulcer, Venous Stasis Changes Wound/Incision: Yes: Dressing Dry and Intact, Unapproximated Neurological: Yes: Pre-Existing Deficit Labs: CBC, BMP 05/19/19 08:10 05/19/19 08:10 INR, PTT INR 2.44 (0.83-1.09) H 05/19/19 08:10 Problem List - Problems (1) Altered mental state Code(s): R41.82 - ALTERED MENTAL STATUS, UNSPECIFIED Qualifiers: Altered mental status type: disorientation Qualified Code(s): R41.0 - Disorientation, unspecified (2) Atelectasis Code(s): J98.11 - ATELECTASIS (3) PNA (pneumonia) Code(s): J18.9 - PNEUMONIA, UNSPECIFIED ORGANISM Qualifiers: Pneumonia type: due to unspecified organism Laterality: right Lung location: lower lobe of lung Qualified Code(s): J18.9 - Pneumonia, unspecified organism (4) Sepsis Code(s): A41.9 - SEPSIS, UNSPECIFIED ORGANISM (5) Afib Code(s): I48.91 - UNSPECIFIED ATRIAL FIBRILLATION (6) Anemia Code(s): D64.9 - ANEMIA, UNSPECIFIED Qualifiers: Anemia type: B12 deficiency 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 (7) Headache Code(s): R51 - HEADACHE Qualifiers: Headache type: other headache syndrome Qualified Code(s): G44.89 - Other headache syndrome (8) Hypothyroidism Code(s): E03.9 - HYPOTHYROIDISM, UNSPECIFIED (9) Leg pain, left Code(s): M79.605 - PAIN IN LEFT LEG (10) Leg pain, right Code(s): M79.604 - PAIN IN RIGHT LEG (11) Multiple myeloma Code(s): C90.00 - MULTIPLE MYELOMA NOT HAVING ACHIEVED REMISSION Qualifiers: Multiple myeloma remission status: unspecified Qualified Code(s): C90.00 - Multiple myeloma not having achieved remission (12) Thyroid cancer Code(s): C73 - MALIGNANT NEOPLASM OF THYROID GLAND (13) Pneumonia Code(s): J18.9 - PNEUMONIA, UNSPECIFIED ORGANISM (14) Cellulitis of leg, right Code(s): L03.115 - CELLULITIS OF RIGHT LOWER LIMB (15) Respiratory infection Code(s): J98.8 - OTHER SPECIFIED RESPIRATORY DISORDERS (16) Transaminitis Code(s): R74.0 - NONSPEC ELEV OF LEVELS OF TRANSAMNS & LACTIC ACID DEHYDRGNSE (17) Elevated transaminase level Code(s): R74.0 - NONSPEC ELEV OF LEVELS OF TRANSAMNS & LACTIC ACID DEHYDRGNSE Assessment/Plan TRANSAMINITIS IS ACUTE CHECK HEPATITIS PROFILE SONO LIVER STOP ATORVASTATIN AND ANY OTHER MEDS THAT CROSS HEPATIC PATHWAY. IV ABX CONTINUE DRESSING CHANGE TO LEGS GI EVAL IF LFT'S INCREASE
[2019-05-19] MEDS: MAGNESIUM OXIDE 400 MG TABLET (FP) PO SCH (11:35)
[2019-05-19] MEDS: FAMOTIDINE 20 MG TABLET PO SCH ×2 (11:35→22:13)
[2019-05-19] MEDS: FERROUS SO4 325 MG TABLET (FP) PO SCH (11:35)
[2019-05-19] MEDS: MEMANTINE HCL 5 MG TABLET (UD) PO SCH ×2 (11:36→22:13)
[2019-05-19] MEDS: ASCORBIC ACID 500 MG TABLET (FP) PO SCH (11:36)
[2019-05-19] MEDS: MULTIVITAMINS (DAILY MVI) TABLET (FP) PO SCH (11:36)
[2019-05-19] MEDS: POTASSIUM CHLORIDE TABS 20 MEQ TABLET.ER (FP) PO SCH (11:36)
[2019-05-19] MEDS: AMINO ACIDS/PROTEIN HYDROLYS 30 ML LIQUID.PKT PO SCH (11:36)
[2019-05-19] MEDS: metoPROLOL SUCCINATE 25 MG TAB.SR.24H (FP) PO SCH (11:40)
[2019-05-19] MEDS: MOMETASONE FUROATE 220 MCG/IH INHALER IH SCH (11:41)
--- NOTE | 2019-05-19 12:59 | PN ---
Progress Note (short form) - Note Progress Note: day #5 laura no further fevers she is tired of the hospital notes pain in her legs Vital Signs Period Temp Pulse Resp BP Sys/Ferrer Pulse Ox Last 24 Hr 98.2 F-98.7 F 70-79 18-20 98-115/42-58 97 cor-rrr lungs clear abd soft,nt ext serous drainage from LLE- wounds are clean -both legs still some warmth and tenderness CBC, BMP 05/19/19 08:10 05/19/19 08:10 Microbiology 05/14/19 21:45 Blood - Peripheral Venous Blood Culture - Preliminary NO GROWTH OBTAINED AFTER 96 HOURS, INCUBATION TO CONTINUE FOR 1 DAYS. 05/14/19 21:45 Blood - Peripheral Venous Blood Culture - Final Morganella Morganii 05/15/19 01:40 Urine - Urine - Catheterized Urine Culture - Final Lactose Fermenting Neg Bacilli a/p morganella bacteremia- suspect source is her legs ua is negative, less then 10k colonies GNR- not identified by lab cellulitis/infected ulcers improving platelets recovering multiple myeloma abnl lfts- for ultrasound
[2019-05-19] MEDS: traMADol HCL 50 MG TABLET PO PRN (15:56)
[2019-05-19] MEDS: D5-1/2NS+30 MEQ KCL - 30 MEQ/1,000 ML INFUS.BAG IV SCH (15:58)
--- NOTE | 2019-05-19 20:39 | PN ---
Progress Note (short form) - Note Progress Note: Seen in follow up. No events overnight. Comfortable, sitting up in bed. Inpatient meds reviewed: Current Medications Acetaminophen (Tylenol -) 650 mg PO Q8H PRN PRN Reason: PAIN LEVEL 4 - 6 Last Admin: 05/16/19 12:41 Dose: 650 mg Albuterol Sulfate (Ventolin 0.083% Nebulizer Soln -) 1 amp NEB Q6H PRN PRN Reason: SHORT OF BREATH/WHEEZING Amino Acids (Prosource No Carb Liquid Pkt) 30 ml PO DAILY@0800 [facility] Last Admin: 05/19/19 11:36 Dose: 30 ml Ascorbic Acid (Vitamin C -) 500 mg PO DAILY [facility] Last Admin: 05/19/19 11:36 Dose: 500 mg Famotidine (Pepcid -) 20 mg PO BID [facility] Last Admin: 05/19/19 11:35 Dose: 20 mg Ferrous Sulfate (Feosol -) 325 mg PO DAILY [facility] Last Admin: 05/19/19 11:35 Dose: 325 mg Furosemide (Lasix -) 20 mg PO Q2D [facility] Last Admin: 05/18/19 10:37 Dose: 20 mg Gabapentin (Neurontin -) 600 mg PO TID [facility] Last Admin: 05/19/19 15:57 Dose: 600 mg Piperacillin Sod/Tazobactam (Sod 3.375 gm/ Dextrose) 50 mls @ 100 mls/hr IVPB Q8H-IV [facility]; Protocol Last Admin: 05/19/19 17:51 Dose: 100 mls/hr Potassium Chloride/Dextrose/Sod Cl (D5-1/2ns+30 Meq Kcl -) 30 meq in 1,000 mls @ 83 mls/hr IV ASDIR [facility] Last Admin: 05/19/19 15:58 Dose: 83 mls/hr Levothyroxine Sodium (Synthroid -) 100 mcg PO DAILY@0700 [facility] Last Admin: 05/19/19 06:08 Dose: 100 mcg Magnesium Oxide (Mag-Ox -) 400 mg PO DAILY [facility] Last Admin: 05/19/19 11:35 Dose: 400 mg Memantine (Namenda -) 5 mg PO BID [facility] Last Admin: 05/19/19 11:36 Dose: 5 mg Metoprolol Succinate (Toprol Xl -) 25 mg PO DAILY [facility] Last Admin: 05/19/19 11:40 Dose: 25 mg Mometasone Furoate (Asmanex 220mcg -) 1 puff IH DAILY [facility] Last Admin: 05/19/19 11:41 Dose: 1 puff Multi-Ingredient Ointment (Zinc Oxide) 1 applic TP TID [facility] Last Admin: 05/19/19 15:58 Dose: 1 applic Multivitamins/Minerals/Vitamin C (Tab-A-Vit -) 1 tab PO DAILY [facility] Last Admin: 05/19/19 11:36 Dose: 1 tab Non-Formulary Medication (Lenalidomide [Revlimid]) 1 tab PO DAILY [facility] Potassium Chloride (K-Dur -) 20 meq PO DAILY [facility] Last Admin: 05/19/19 11:36 Dose: 20 meq Pramipexole Dihydrochloride (Mirapex -) 0.25 mg PO TID [facility] Last Admin: 05/19/19 15:58 Dose: 0.25 mg Tramadol HCl (Ultram -) 50 mg PO Q8H PRN PRN Reason: PAIN LEVEL 1-5 Last Admin: 05/19/19 15:56 Dose: 50 mg On Examination: Last Vital Signs Temp Pulse Resp BP Pulse Ox 98.4 F 62 20 119/51 L 97 05/19/19 18:32 05/19/19 18:32 05/19/19 18:32 05/19/19 18:32 05/19/19 09:00 General: In no acute distress, supine in bed. Extremities: No pallor or icterus. CVS: S1, S2, no gallop or murmur. Chest: breathing comfortably, clear. Abdomen: non-distended, non-tender Neuro: Alert, oriented, non-focal Labs: CBC, BMP 05/19/19 08:10 05/19/19 08:10 Assessment. Multiple myeloma, an active treatment, currently in remission, presenting with gm negative bacteremia. Improved on Abics. Lower extremity ulcers - possible source? Ongoing would care. Ongoing management ID. Holding myeloma therapy.
[2019-05-19] MEDS ORDERED: PT OWN MED DRAWER 7, Y5N ONE (22:01)
[2019-05-20] MEDS ORDERED: DEXTROSE 5%-WATER - 50 ML IVPB ONE ×3 (01:10→16:58)
[2019-05-20] MEDS ORDERED: PIPERACILLIN/TAZOBACTAM 3.375 GM VIAL IVPB ONE ×3 (01:10→16:57)
[2019-05-20] MEDS: PIPERACILLIN/TAZOB 3.375 GM 3.375 GM in DEXTROSE 5%-WATER - 50 ML IVPB SCH ×3 (01:30→17:15)
[2019-05-20] MEDS: GABAPENTIN 300 MG CAPSULE PO SCH ×3 (06:21→22:24)
[2019-05-20] MEDS: LEVOTHYROXINE NA 100 MCG TABLET (FP) PO SCH (06:21)
[2019-05-20] MEDS: ZINC OXIDE 20% TOPICAL OINTMENT 30 GM TUBE TP SCH ×3 (06:21→22:26)
[2019-05-20] MEDS: PRAMIPEXOLE DIHYDROCHLORIDE 0.25 MG TABLET PO SCH ×3 (06:21→22:26)
[2019-05-20] MEDS: D5-1/2NS+30 MEQ KCL - 30 MEQ/1,000 ML INFUS.BAG IV SCH ×3 (06:43→22:24)
[2019-05-20 06:50] LABS: HEMATOCRIT 33.2 % (32.4-45.2); HEMOGLOBIN 10.6 GM/dL (10.7-15.3); MCH 30.5 pg (25.7-33.7); MEAN CELL VOLUME 95.3 fl (80-96); MEAN PLT VOLUME 9.8 fl (7.5-11.1); PLATELET COUNT 98 K/MM3 (134-434); RBC 3.48 M/mm3 (3.60-5.2); WHITE BLOOD COUNT 9.8 K/mm3 (4.0-10.0)
[2019-05-20 08:10] LABS: ALBUMIN 1.4 g/dl (3.4-5.0); BILIRUBIN,TOTAL 0.9 mg/dL (0.2-1); BLOOD UREA NITROGEN 21.2 mg/dL (7-18); CALCIUM 7.8 mg/dL (8.5-10.1); CREATININE 1.3 mg/dL (0.55-1.3); POTASSIUM 4.1 mmol/L (3.5-5.1); TOT PROT 4.5 g/dl (6.4-8.2)
[2019-05-20 08:35] LABS: INR 2.38 (0.83-1.09); PROTHROMBIN TIME (PATIENT) 28.3 SEC (9.7-13.0)
[2019-05-20] MEDS: AMINO ACIDS/PROTEIN HYDROLYS 30 ML LIQUID.PKT PO SCH (09:40)
[2019-05-20] MEDS: FERROUS SO4 325 MG TABLET (FP) PO SCH (09:41)
[2019-05-20] MEDS: ASCORBIC ACID 500 MG TABLET (FP) PO SCH (09:41)
[2019-05-20] MEDS: POTASSIUM CHLORIDE TABS 20 MEQ TABLET.ER (FP) PO SCH (09:41)
[2019-05-20] MEDS: MAGNESIUM OXIDE 400 MG TABLET (FP) PO SCH (09:41)
[2019-05-20] MEDS: MULTIVITAMINS (DAILY MVI) TABLET (FP) PO SCH (09:42)
[2019-05-20] MEDS: FUROSEMIDE 20 MG TABLET (FP) PO SCH (09:42)
[2019-05-20] MEDS: metoPROLOL SUCCINATE 25 MG TAB.SR.24H (FP) PO SCH (09:42)
[2019-05-20] MEDS: MEMANTINE HCL 5 MG TABLET (UD) PO SCH ×2 (09:42→22:25)
[2019-05-20] MEDS: MOMETASONE FUROATE 220 MCG/IH INHALER IH SCH (09:43)
[2019-05-20] MEDS: FAMOTIDINE 20 MG TABLET PO SCH ×2 (09:45→22:26)
--- NOTE | 2019-05-20 10:03 | PN ---
Progress Note, Physician Chief Complaint: AMS Pneumonia History of Present Illness: Previous notes and events reviewed awake and alert NAD INR 2.38 Abdominal US completed for transaminits denies complaints of chest pain or palpitation patient is now DNR/DNI - Current Medication List Current Medications: Active Medications Acetaminophen (Tylenol -) 650 mg PO Q8H PRN PRN Reason: PAIN LEVEL 4 - 6 Last Admin: 05/16/19 12:41 Dose: 650 mg Albuterol Sulfate (Ventolin 0.083% Nebulizer Soln -) 1 amp NEB Q6H PRN PRN Reason: SHORT OF BREATH/WHEEZING Amino Acids (Prosource No Carb Liquid Pkt) 30 ml PO DAILY@0800 [facility] Last Admin: 05/20/19 09:40 Dose: 30 ml Ascorbic Acid (Vitamin C -) 500 mg PO DAILY [facility] Last Admin: 05/20/19 09:41 Dose: 500 mg Famotidine (Pepcid -) 20 mg PO BID [facility] Last Admin: 05/20/19 09:45 Dose: 20 mg Ferrous Sulfate (Feosol -) 325 mg PO DAILY [facility] Last Admin: 05/20/19 09:41 Dose: 325 mg Furosemide (Lasix -) 20 mg PO Q2D [facility] Last Admin: 05/20/19 09:42 Dose: 20 mg Gabapentin (Neurontin -) 600 mg PO TID [facility] Last Admin: 05/20/19 06:21 Dose: 600 mg Piperacillin Sod/Tazobactam (Sod 3.375 gm/ Dextrose) 50 mls @ 100 mls/hr IVPB Q8H-IV [facility]; Protocol Last Admin: 05/20/19 09:46 Dose: 100 mls/hr Potassium Chloride/Dextrose/Sod Cl (D5-1/2ns+30 Meq Kcl -) 30 meq in 1,000 mls @ 83 mls/hr IV ASDIR [facility] Last Admin: 05/20/19 06:43 Dose: 83 mls/hr Levothyroxine Sodium (Synthroid -) 100 mcg PO DAILY@0700 [facility] Last Admin: 05/20/19 06:21 Dose: 100 mcg Magnesium Oxide (Mag-Ox -) 400 mg PO DAILY [facility] Last Admin: 05/20/19 09:41 Dose: 400 mg Memantine (Namenda -) 5 mg PO BID [facility] Last Admin: 05/20/19 09:42 Dose: 5 mg Metoprolol Succinate (Toprol Xl -) 25 mg PO DAILY [facility] Last Admin: 05/20/19 09:42 Dose: 25 mg Mometasone Furoate (Asmanex 220mcg -) 1 puff IH DAILY [facility] Last Admin: 05/20/19 09:43 Dose: 1 puff Multi-Ingredient Ointment (Zinc Oxide) 1 applic TP TID [facility] Last Admin: 05/20/19 06:21 Dose: 1 applic Multivitamins/Minerals/Vitamin C (Tab-A-Vit -) 1 tab PO DAILY [facility] Last Admin: 05/20/19 09:42 Dose: 1 tab Non-Formulary Medication (Lenalidomide [Revlimid]) 1 tab PO DAILY [facility] Potassium Chloride (K-Dur -) 20 meq PO DAILY [facility] Last Admin: 05/20/19 09:41 Dose: 20 meq Pramipexole Dihydrochloride (Mirapex -) 0.25 mg PO TID [facility] Last Admin: 05/20/19 06:21 Dose: 0.25 mg Tramadol HCl (Ultram -) 50 mg PO Q8H PRN PRN Reason: PAIN LEVEL 1-5 Last Admin: 05/19/19 15:56 Dose: 50 mg - Objective Vital Signs: Vital Signs Temperature 98.3 F 05/20/19 06:00 Pulse Rate 59 L 05/20/19 06:00 Respiratory Rate 05/20/19 06:00 Blood Pressure 120/45 L 05/20/19 06:00 O2 Sat by Pulse Oximetry (%) 97 05/19/19 21:00 Constitutional: Yes: No Distress, Calm Eyes: Yes: Conjunctiva Clear HENT: Yes: Atraumatic Cardiovascular: Yes: Regular Rate and Rhythm Respiratory: Yes: Regular, Diminished, On Nasal O2 Gastrointestinal: Yes: Normal Bowel Sounds, Soft Genitourinary: Yes: [place] Present Musculoskeletal: Yes: Muscle Weakness Extremities: Yes: WNL Edema: No Wound/Incision: Yes: Dressing Dry and Intact (b/l lower extremity) Neurological: Yes: Alert, Pre-Existing Deficit Psychiatric: Yes: Alert Labs: CBC, BMP 05/20/19 06:25 05/20/19 07:25 INR, PTT INR 2.38 (0.83-1.09) H 05/20/19 07:50 Microbiology 05/14/19 21:45 Blood - Peripheral Venous Blood Culture - Final NO GROWTH AFTER 5 DAYS INCUBATION 05/14/19 21:45 Blood - Peripheral Venous Blood Culture - Final Morganella Morganii 05/15/19 01:40 Urine - Urine - Catheterized Urine Culture - Final Lactose Fermenting Neg Bacilli Problem List - Problems (1) Altered mental state Assessment/Plan: -Head CT scan shows no CT evidence of acute intracranial pathology -Neuro checks q4h -possibly secondary to infection -improved Code(s): R41.82 - ALTERED MENTAL STATUS, UNSPECIFIED Qualifiers: Altered mental status type: disorientation Qualified Code(s): R41.0 - Disorientation, unspecified (2) PNA (pneumonia) Assessment/Plan: -CXR shows cardiomegaly with mild pulmonary venous congestion vs chronic interstitial lung disease, interval mild atelectatic changes vs infiltrates in left lung base -Pulmonary consult -BC positive -no leukocytosis -afebrile -Zosyn -LA 2.8~1.2 -bronchodilators -keep SpO2 >90% -O2 via NC -Influenza neg Code(s): J18.9 - PNEUMONIA, UNSPECIFIED ORGANISM Qualifiers: Pneumonia type: due to unspecified organism Laterality: right Lung location: lower lobe of lung Qualified Code(s): J18.9 - Pneumonia, unspecified organism (3) Afib Assessment/Plan: -resume Coumadin HS -INR 2.38 -monitor INR daily -therapeutic goal 2-3 Code(s): I48.91 - UNSPECIFIED ATRIAL FIBRILLATION (4) CHF (congestive heart failure) Assessment/Plan: -Furosemide q48h -daily weights -1L fluid restriction -strict I&O -low Na diet Code(s): I50.9 - HEART FAILURE, UNSPECIFIED (5) Hypothyroidism Assessment/Plan: -Levothyroxine Code(s): E03.9 - HYPOTHYROIDISM, UNSPECIFIED (6) Multiple myeloma Assessment/Plan: -Oncology consult -Revlimid Code(s): C90.00 - MULTIPLE MYELOMA NOT HAVING ACHIEVED REMISSION Qualifiers: Multiple myeloma remission status: unspecified Qualified Code(s): C90.00 - Multiple myeloma not having achieved remission (7) Supratherapeutic INR Assessment/Plan: -resolved -INR 2.38 -monitor INR daily -therapeutic goal 2-3 -may resume Coumadin Code(s): R79.1 - ABNORMAL COAGULATION PROFILE (8) Venous stasis ulcer Assessment/Plan: -Vascular on board -daily dressing change -RLE treat with calcium alginare and compression dressing -LLE treat with xeroform and compression dressing Code(s): I83.009 - VARICOSE VEINS OF UNSP LOWER EXTREMITY W ULCER OF UNSP SITE; L97.909 - NON-PRS CHRONIC ULC UNSP PRT OF UNSP LOW LEG W UNSP SEVERITY (9) Transaminitis Assessment/Plan: -AST 161, ALT 197, Alk Phos 187 -Abd US shows borderline hepatic enlargement -GI consult -Hepatitis profile pending Code(s): R74.0 - NONSPEC ELEV OF LEVELS OF TRANSAMNS & LACTIC ACID DEHYDRGNSE Assessment/Plan see problem list
--- NOTE | 2019-05-20 13:09 | CON.GI ---
Consult Consult Specialty:: Gastroenterology ( covering Dr. Lowe) Referred by:: RICHELLE Snyder Reason for Consultation:: Abnormal LFTs - History of Present Illness Chief Complaint: Altered mental status History of Present Illness: 88F transferred from [facility] for hypotension and altered mental status and is found to have Morganella morganii bacteremia likely from a leg ulcer source. the history is obtained by phone from her son. She has developed LFTs abnormalities. Her sonogram reveals hepatomegaly but no gallstones or ductal dilation. He reports that she underwent an exploratory laparotomy with Dr Junaid Ni at [facility] in 2002 for suspected pancreatic cancer but no such cancer was fouind.He believes that nothing was resected. An MRCP from 2017 reveals an 8mm pancreatic duct but no obvious masses. 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 thyroid surgery - Alcohol/Substance Use Hx Alcohol Use: No (quit age 42) History of Substance Use: reports: None - Smoking History Smoking history: Former smoker Have you smoked in the past 12 months: No Aproximately how many cigarettes per day: 0 If you are a former smoker, when did you quit?: quit age 42 - Social History Usual Living Arrangement: [facility] ADL: Support Services Occupation: retired [employer] from [employer] Place of : [facility] History of Recent Travel: No Home Medications - Allergies Allergies/Adverse Reactions: Allergies Allergy/AdvReac Type Severity Reaction Status Date / Time No Known Allergies Allergy Verified 05/14/19 19:39 - Home Medications Home Medications: Ambulatory Orders Acetaminophen [Tylenol] 2 tab PO Q8H PRN 10/24/18 Albuterol Sulfate [Proair Hfa] 1 puff IH Q6H PRN 10/24/18 Atorvastatin Ca [Lipitor] 1 tab PO HS 07/02/19 Dexamethasone 5 tab PO ASDIR 10/24/18 Ferrous Sulfate [Feosol] 1 tab PO DAILY 10/24/18 Fluticasone Furoate [Arnuity Ellipta] 2 puff IH DAILY 10/24/18 Gabapentin 1 tab PO TID 10/24/18 Lenalidomide [Revlimid] 1 tab PO DAILY 10/24/18 Magnesium Oxide [Magnesium] 1 tab PO DAILY 10/24/18 Memantine HCl [Namenda -] 1 tab PO Q12H 10/24/18 Metoprolol Succinate [Toprol Xl] 25 mg PO DAILY 10/24/18 Multivitamin [Multiple Vitamins] 1 tab PO DAILY 10/24/18 Pramipexole Di-HCl [Mirapex] 1 tab PO TID 10/24/18 Tramadol HCl 1 tab PO Q8H PRN 10/24/18 Warfarin Sodium [Coumadin] 6 mg PO HS 10/31/18 Famotidine [Pepcid -] 20 mg PO BID tablet 02/09/19 Levothyroxine [Synthroid -] 100 mcg PO DAILY@0700 tablet 02/09/19 Aa/Hydrolyzed Collagen, Whey [Lps 15-30 Liquid] 30 ml PO DAILY 05/15/19 Ascorbic Acid [Vitamin C] 500 mg PO DAILY 05/15/19 Furosemide [Lasix -] 20 mg PO Q48H 05/15/19 Lactobacillus Acidophilus [Acidophilus] 1 each PO ASDIR 05/15/19 Zinc Oxide 20% Topical Oint 1 applic TP Q8H 05/15/19 Memantine HCl [Namenda -] 5 mg PO BID tab 05/17/19 Potassium Chloride [K-Dur -] 20 meq PO DAILY tablet.er 05/17/19 levoFLOXacin [Levaquin -] 250 mg PO Q48H #7 tablet 05/17/19 Collagenase Clostridium Hist. [Santyl] 1 applic TP ASDIR 05/18/19 Family Medical History Other Family History: was adopted Review of Systems Unable to obtain ROS, reason: dementia Physical Exam-GI Vital Signs: Vital Signs Temperature 98.7 F 05/20/19 10:00 Pulse Rate 60 05/20/19 10:00 Respiratory Rate 20 05/20/19 10:00 Blood Pressure 125/57 L 05/20/19 10:00 O2 Sat by Pulse Oximetry (%) 96 05/20/19 09:00 CBC,CMP WBC 9.8 K/mm3 (4.0-10.0) 05/20/19 06:25 RBC 3.48 M/mm3 (3.60-5.2) L 05/20/19 06:25 Hgb 10.6 GM/dL (10.7-15.3) L 05/20/19 06:25 Hct 33.2 % (32.4-45.2) 05/20/19 06:25 MCV 95.3 fl (80-96) 05/20/19 06:25 MCH 30.5 pg (25.7-33.7) 05/20/19 06:25 MCHC 32.0 g/dl (32.0-36.0) 05/20/19 06:25 RDW 20.0 % (11.6-15.6) H 05/20/19 06:25 Plt Count 98 K/MM3 (134-434) L 05/20/19 06:25 MPV 9.8 fl (7.5-11.1) 05/20/19 06:25 Absolute Neuts (auto) 6.7 K/mm3 (1.5-8.0) 05/19/19 08:10 Neutrophils % 86.6 % (42.8-82.8) H 05/19/19 08:10 Neutrophils % (Manual) 67.7 % (42.8-82.8) 05/15/19 12:00 Band Neutrophils % 14.0 % 05/15/19 12:00 Lymphocytes % 3.5 % (8-40) L 05/19/19 08:10 Lymphocytes % (Manual) 0.0 % (8-40) L 05/15/19 12:00 Monocytes % 9.4 % (3.8-10.2) 05/19/19 08:10 Monocytes % (Manual) 12 % (3.8-10.2) H 05/15/19 12:00 Eosinophils % 0.3 % (0-4.5) 05/19/19 08:10 Eosinophils % (Manual) 1.1 % (0-4.5) D 05/15/19 12:00 Basophils % 0.2 % (0-2.0) 05/19/19 08:10 Basophils % (Manual) 0.0 % (0-2.0) 05/15/19 12:00 Myelocytes % (Man) 0 % (0-2) 05/15/19 12:00 Promyelocytes % (Man) 0 % (0-2) 05/15/19 12:00 Blast Cells % (Manual) 0 % (0-0) 05/15/19 12:00 Nucleated RBC % 0 % (0-0) 05/19/19 08:10 Metamyelocytes 3 % (0-2) H D 05/15/19 12:00 Hypochromia 0 05/15/19 12:00 Platelet Estimate Decreased 05/15/19 12:00 Platelet Comment No clumping noted 05/15/19 04:39 Polychromasia 0 05/15/19 12:00 Poikilocytosis 1+ 05/15/19 12:00 Anisocytosis 1+ 05/15/19 12:00 Microcytosis 1+ 05/15/19 12:00 Macrocytosis 0 05/15/19 12:00 Tear Drop Cells 1+ 05/15/19 12:00 Ovalocytes 1+ 05/15/19 12:00 Fragmented RBCs Few 05/15/19 04:39 Sodium 151 mmol/L (136-145) H 05/20/19 07:25 Potassium 4.1 mmol/L (3.5-5.1) 05/20/19 07:25 Chloride 120 mmol/L (98-107) H 05/20/19 07:25 Carbon Dioxide 26 mmol/L (21-32) 05/20/19 07:25 Anion Gap 6 MMOL/L (8-16) L 05/20/19 07:25 BUN 21.2 mg/dL (7-18) H 05/20/19 07:25 Creatinine 1.3 mg/dL (0.55-1.3) 05/20/19 07:25 Est GFR (CKD-EPI)AfAm 43.02 05/20/19 07:25 Est GFR (CKD-EPI)NonAf 37.12 05/20/19 07:25 Random Glucose 127 mg/dL (74-106) H 05/20/19 07:25 Lactic Acid 1.2 mmol/L (0.4-2.0) 05/16/19 11:08 Calcium 7.8 mg/dL (8.5-10.1) L 05/20/19 07:25 Magnesium 2.3 mg/dL (1.8-2.4) 05/17/19 06:45 Total Bilirubin 0.9 mg/dL (0.2-1) 05/20/19 07:25 AST 161 U/L (15-37) H 05/20/19 07:25 ALT 197 U/L (13-61) H 05/20/19 07:25 Alkaline Phosphatase 187 U/L (45-117) H 05/20/19 07:25 Creatine Kinase 450 U/L (26-192) H 05/15/19 04:39 Creatine Kinase Index 0.2 % (0.0-5.0) 05/15/19 04:39 CK-MB (CK-2) 1.3 ng/mL (0.5-3.6) 05/15/19 04:39 Troponin I 0.03 ng/ml (0.00-0.05) 05/14/19 21:45 Total Protein 4.5 g/dl (6.4-8.2) L 05/20/19 07:25 Albumin 1.4 g/dl (3.4-5.0) L 05/20/19 07:25 TSH 0.03 uIU/ml (0.358-3.74) L 05/14/19 21:45 Free T4 1.27 ng/dl (0.76-1.46) 05/14/19 21:45 Thyroxine (T4) 7.6 ug/dl (4.5-13.9) 05/14/19 21:45 Current Medications Generic Name Dose Route Start Last Admin Trade Name Freq PRN Reason Stop Dose Admin Acetaminophen 650 mg 05/15/19 17:12 05/20/19 13:27 Tylenol - PO 650 mg Q8H PRN Administration PAIN LEVEL 4 - 6 Albuterol Sulfate 1 amp 05/15/19 17:20 Ventolin 0.083% Nebulizer Soln - NEB Q6H PRN SHORT OF BREATH/WHEEZING Amino Acids 30 ml 05/16/19 08:00 05/20/19 09:40 Prosource No Carb Liquid Pkt PO 30 ml DAILY@0800 GIRISH Administration Ascorbic Acid 500 mg 05/16/19 10:00 01/26/20 09:41 Vitamin C - PO 500 mg DAILY GIRISH Administration Famotidine 20 mg 05/15/19 22:00 05/20/19 09:45 Pepcid - PO 20 mg BID GIRISH Administration Ferrous Sulfate 325 mg 05/16/19 10:00 05/20/19 09:41 Feosol - PO 325 mg DAILY GIRISH Administration Furosemide 20 mg 05/16/19 10:00 05/20/19 09:42 Lasix - PO 20 mg Q2D GIRISH Administration Gabapentin 600 mg 05/15/19 22:00 05/20/19 13:20 Neurontin - PO 600 mg TID GIRISH Administration Piperacillin Sod/Tazobactam 50 mls @ 100 mls/hr 05/15/19 18:00 05/20/19 09:46 Sod 3.375 gm/ Dextrose IVPB 100 mls/hr Q8H-IV GIRISH Administration Protocol Potassium Chloride/Dextrose/Sod Cl 30 meq in 1,000 mls @ 83 mls/hr 05/18/19 14 :30 05/20/19 06:43 D5-1/2ns+30 Meq Kcl - IV 83 mls/hr ASDIR GIRISH Administration Levothyroxine Sodium 100 mcg 05/16/19 07:00 05/20/19 06:21 Synthroid - PO 100 mcg DAILY@0700 GIRISH Administration Magnesium Oxide 400 mg 05/16/19 10:00 05/20/19 09:41 Mag-Ox - PO 400 mg DAILY GIRISH Administration Memantine 5 mg 05/15/19 22:00 05/20/19 09:42 Namenda - PO 5 mg BID GIRISH Administration Metoprolol Succinate 25 mg 05/16/19 10:00 05/20/19 09:42 Toprol Xl - PO 25 mg DAILY GIRISH Administration Mometasone Furoate 1 puff 05/16/19 10:00 05/20/19 09:43 Asmanex 220mcg - IH 1 puff DAILY GIRISH Administration Multi-Ingredient Ointment 1 applic 05/15/19 22:00 05/20/19 13:21 Zinc Oxide TP 1 applic TID GIRISH Administration Multivitamins/Minerals/Vitamin C 1 tab 05/16/19 10:00 05/20/19 09:42 Tab-A-Vit - PO 1 tab DAILY GIRISH Administration Non-Formulary Medication 1 tab 05/16/19 10:00 Lenalidomide [Revlimid] PO DAILY [facility] Potassium Chloride 20 meq 05/17/19 12:00 05/20/19 09:41 K-Dur - PO 20 meq DAILY GIRISH Administration Pramipexole Dihydrochloride 0.25 mg 05/15/19 22:00 05/20/19 13:21 Mirapex - PO 0.25 mg TID GIRISH Administration Tramadol HCl 50 mg 05/15/19 17:12 05/19/19 15:56 Ultram - PO 50 mg Q8H PRN Administration PAIN LEVEL 1-5 Warfarin Sodium 6 mg 05/20/19 18:00 Coumadin - PO DAILY@1800 GIRISH Constitutional: Yes: Other (confused) Eyes: Yes: Conjunctiva Clear HENT: Yes: Atraumatic Neck: Yes: Supple Cardiovascular: Yes: Regular Rate and Rhythm Respiratory: Yes: CTA Bilaterally Gastrointestinal Inspection: Yes: Scars (long vertical upper midline incision) ...Auscultate: Yes: Normoactive Bowel Sounds ...Palpate: Yes: Soft, Other (nontender) ...Rectal Exam: Yes: Guaiac Negative (soft brown guaiac negative stool) Neurological: Yes: Other (confused) Labs: CBC, BMP 05/20/19 06:25 05/20/19 07:25 INR, PTT INR 2.38 (0.83-1.09) H 05/20/19 07:50 Laboratory Tests 11/30/12 10/09/13 12/04/14 12:38 06:00 11:53 Alkaline Phosphatase AST 20 17 21 02/09/16 09/08/16 01/19/17 06:00 10:50 09:35 Alkaline Phosphatase 60 AST 14 L 28 06/08/17 12/25/17 01/02/18 08:52 05:30 06:30 Alkaline Phosphatase 78 136 H AST 18 02/21/18 05/02/18 10/17/18 10:05 09:24 11:08 Alkaline Phosphatase 67 60 AST 15 03/20/19 05/01/19 05/14/19 08:20 08:20 21:45 Alkaline Phosphatase 60 54 AST 19 42 H 05/16/19 05/19/19 05/20/19 06:40 08:10 07:25 Alkaline Phosphatase 36 L 138 H 187 H AST 24 130 H 161 H Imaging - Results Ultrasound: Report Reviewed ( Final Report US ABDOMEN US -LIMITED Show Printer-Friendly Version Patient Name: Pema Valdez : 1930 ID: [id number] Study Date: 20-May-2019 09:03 Rhina Arriola Name : PEMA VALDEZ DEPARTMENT OF RADIOLOGY Phys: Johann Wadsworth MD : 1930 Age: 88 Sex: F [facility] [place] Acct: [id number] Loc: [address] Exam Date: 05/20/19 Status: [place] [address] Unit Number: [id number] EXAM#: TYPE/EXAM: RESULT: [id number] US/ABDOMEN US -LIMITED Right upper quadrant abdominal sonogram HISTORY: Acute transaminitis FINDINGS: The liver is borderline enlarged with no focal lesions The gallbladder is physiologically distended and invaginated but no gallstones identified. No abnormal bile duct dilatation Visualized portions of the pancreas unremarkable The right kidney measures 9.6 cm and is unremarkable Visualized portions of the aorta, IVC and main portal vein grossly unremarkable IMPRESSION: Borderline hepatic enlargement Reported By: Adalid Roth MD 05/20/1953 Technologist: Transcribed Date/Time: [address] Support Worker: Adalid Roth Printed Date/Time: By: Signed by: Adalid Roth Signed on: 20-May-2019 09:56) Problem List - Problems (1) Abnormal liver function tests Code(s): R94.5 - ABNORMAL RESULTS OF LIVER FUNCTION STUDIES (2) Dilated pancreatic duct Code(s): K86.89 - OTHER SPECIFIED DISEASES OF PANCREAS (3) Paroxysmal atrial fibrillation Code(s): I48.0 - PAROXYSMAL ATRIAL FIBRILLATION (4) Altered mental state Code(s): R41.82 - ALTERED MENTAL STATUS, UNSPECIFIED Qualifiers: Altered mental status type: disorientation Qualified Code(s): R41.0 - Disorientation, unspecified (5) Bacteremia Code(s): R78.81 - BACTEREMIA (6) Hypothyroidism associated with surgical procedure Code(s): E89.0 - POSTPROCEDURAL HYPOTHYROIDISM (7) Multiple myeloma Code(s): C90.00 - MULTIPLE MYELOMA NOT HAVING ACHIEVED REMISSION Qualifiers: Multiple myeloma remission status: unspecified Qualified Code(s): C90.00 - Multiple myeloma not having achieved remission (8) Type 2 diabetes mellitus with other skin ulcer Code(s): E11.622 - TYPE 2 DIABETES MELLITUS WITH OTHER SKIN ULCER; L98.499 - NON -PRESSURE CHRONIC ULCER OF SKIN OF SITES W UNSP SEVERITY (9) Venous stasis ulcer Code(s): I83.009 - VARICOSE VEINS OF UNSP LOWER EXTREMITY W ULCER OF UNSP SITE; L97.909 - NON-PRS CHRONIC ULC UNSP PRT OF UNSP LOW LEG W UNSP SEVERITY (10) Thrombocytopenia Code(s): D69.6 - THROMBOCYTOPENIA, UNSPECIFIED Assessment/Plan Impression: - Given that her LFTs were normal on admission I suspect that these abnormalities reflect reactive hepatopathy to sepsis or perhaps a DILI ( to Zofran) She could alternatively have congestive hepatopathy following her episode of hypotension and given her underlying pulmonary hypertension and TR. Her hepatomegaly argues against the cirrhosis as suggested by her 2017 MRCP. 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 I would not stop her antibiotic at this point - I will order liver studies and tumor markers
[2019-05-20] MEDS: ACETAMINOPHEN 325 MG TABLET (FP) PO PRN (13:27)
--- NOTE | 2019-05-20 14:35 | PN ---
Progress Note (short form) - Note Progress Note: Seen in follow up. No events overnight. Comfortable, sitting up in bed. Talking incessantly now - difficult to comprehend - appears delirious. Noted to be febrile at this time. Inpatient meds reviewed: Current Medications Generic Name Dose Route Start Last Admin Trade Name Freq PRN Reason Stop Dose Admin Acetaminophen 650 mg 05/15/19 17:12 05/20/19 13:27 Tylenol - PO 650 mg Q8H PRN Administration PAIN LEVEL 4 - 6 Albuterol Sulfate 1 amp 05/15/19 17:20 Ventolin 0.083% Nebulizer Soln - NEB Q6H PRN SHORT OF BREATH/WHEEZING Amino Acids 30 ml 05/16/19 08:00 05/20/19 09:40 Prosource No Carb Liquid Pkt PO 30 ml DAILY@0800 GIRISH Administration Ascorbic Acid 500 mg 05/16/19 10:00 05/20/19 09:41 Vitamin C - PO 500 mg DAILY GIRISH Administration Famotidine 20 mg 05/15/19 22:00 05/20/19 09:45 Pepcid - PO 20 mg BID GIRISH Administration Ferrous Sulfate 325 mg 05/16/19 10:00 05/20/19 09:41 Feosol - PO 325 mg DAILY GIRISH Administration Furosemide 20 mg 05/16/19 10:00 05/20/19 09:42 Lasix - PO 20 mg Q2D GIRISH Administration Gabapentin 600 mg 05/15/19 22:00 05/20/19 13:20 Neurontin - PO 600 mg TID GIRISH Administration Piperacillin Sod/Tazobactam 50 mls @ 100 mls/hr 05/15/19 18:00 05/20/19 09:46 Sod 3.375 gm/ Dextrose IVPB 100 mls/hr Q8H-IV GIRISH Administration Protocol Potassium Chloride/Dextrose/Sod Cl 30 meq in 1,000 mls @ 83 mls/hr 05/18/19 14 :30 05/20/19 06:43 D5-1/2ns+30 Meq Kcl - IV 83 mls/hr ASDIR GIRISH Administration Levothyroxine Sodium 100 mcg 05/16/19 07:00 05/20/19 06:21 Synthroid - PO 100 mcg DAILY@0700 GIRISH Administration Magnesium Oxide 400 mg 05/16/19 10:00 05/20/19 09:41 Mag-Ox - PO 400 mg DAILY GIRISH Administration Memantine 5 mg 05/15/19 22:00 05/20/19 09:42 Namenda - PO 5 mg BID GIRISH Administration Metoprolol Succinate 25 mg 05/16/19 10:00 05/20/19 09:42 Toprol Xl - PO 25 mg DAILY GIRISH Administration Mometasone Furoate 1 puff 05/16/19 10:00 05/20/19 09:43 Asmanex 220mcg - IH 1 puff DAILY GIRISH Administration Multi-Ingredient Ointment 1 applic 05/15/19 22:00 05/20/19 13:21 Zinc Oxide TP 1 applic TID GIRISH Administration Multivitamins/Minerals/Vitamin C 1 tab 05/16/19 10:00 05/20/19 09:42 Tab-A-Vit - PO 1 tab DAILY GIRISH Administration Non-Formulary Medication 1 tab 05/16/19 10:00 Lenalidomide [Revlimid] PO DAILY [facility] Potassium Chloride 20 meq 05/17/19 12:00 05/20/19 09:41 K-Dur - PO 20 meq DAILY GIRISH Administration Pramipexole Dihydrochloride 0.25 mg 05/15/19 22:00 05/20/19 13:21 Mirapex - PO 0.25 mg TID GIRISH Administration Tramadol HCl 50 mg 05/15/19 17:12 05/19/19 15:56 Ultram - PO 50 mg Q8H PRN Administration PAIN LEVEL 1-5 Warfarin Sodium 6 mg 05/20/19 18:00 Coumadin - PO DAILY@1800 GIRISH On Examination: Last Vital Signs Temp Pulse Resp BP Pulse Ox 98.4 F 62 20 119/51 L 97 05/19/19 18:32 05/19/19 18:32 05/19/19 18:32 05/19/19 18:32 05/19/19 09:00 General: In no acute distress, supine in bed. Extremities: No pallor or icterus. CVS: S1, S2, no gallop or murmur. Chest: breathing comfortably, clear. Abdomen: non-distended, non-tender Neuro: Alert, not-oriented to time or place presently, non-focal Labs: CBC, BMP 05/20/19 06:25 05/20/19 07:25 Assessment. Multiple myeloma, until this admission on active treatment (VRD), currently in remission, presenting with gm negative bacteremia. Improved on Abics, but at this time febrile again, with recurrence of delirium. Lower extremity ulcers - possible source? Ongoing would care. Ongoing management ID. Myeloma therapy not indicated at this time - following discharge will consider whether role for maintenance therapy (eg single agent Revlimid) vs surveillance alone.
[2019-05-20] MEDS: WARFARIN NA 3 MG TABLET PO SCH (17:16)
[2019-05-20] MEDS: traMADol HCL 50 MG TABLET PO PRN (22:25)
[2019-05-21] MEDS ORDERED: PIPERACILLIN/TAZOBACTAM 3.375 GM VIAL IVPB ONE ×3 (01:55→16:59)
[2019-05-21] MEDS ORDERED: DEXTROSE 5%-WATER - 50 ML IVPB ONE ×3 (01:55→16:59)
[2019-05-21] MEDS: PIPERACILLIN/TAZOB 3.375 GM 3.375 GM in DEXTROSE 5%-WATER - 50 ML IVPB SCH ×3 (02:00→17:02)
[2019-05-21] MEDS: LEVOTHYROXINE NA 100 MCG TABLET (FP) PO SCH (06:38)
[2019-05-21] MEDS: PRAMIPEXOLE DIHYDROCHLORIDE 0.25 MG TABLET PO SCH ×3 (06:39→21:34)
[2019-05-21] MEDS: ZINC OXIDE 20% TOPICAL OINTMENT 30 GM TUBE TP SCH ×3 (06:39→21:34)
[2019-05-21] MEDS: GABAPENTIN 300 MG CAPSULE PO SCH ×3 (06:39→21:34)
[2019-05-21] MEDS: AMINO ACIDS/PROTEIN HYDROLYS 30 ML LIQUID.PKT PO SCH (09:00)
[2019-05-21] MEDS: MULTIVITAMINS (DAILY MVI) TABLET (FP) PO SCH (09:18)
[2019-05-21] MEDS: MAGNESIUM OXIDE 400 MG TABLET (FP) PO SCH (09:19)
[2019-05-21] MEDS: metoPROLOL SUCCINATE 25 MG TAB.SR.24H (FP) PO SCH (09:19)
[2019-05-21] MEDS: ASCORBIC ACID 500 MG TABLET (FP) PO SCH (09:19)
[2019-05-21] MEDS: POTASSIUM CHLORIDE TABS 20 MEQ TABLET.ER (FP) PO SCH (09:19)
[2019-05-21] MEDS: FAMOTIDINE 20 MG TABLET PO SCH ×2 (09:19→21:34)
[2019-05-21] MEDS: MEMANTINE HCL 5 MG TABLET (UD) PO SCH ×2 (09:19→21:34)
[2019-05-21] MEDS: MOMETASONE FUROATE 220 MCG/IH INHALER IH SCH (09:20)
--- NOTE | 2019-05-21 09:44 | PN ---
Progress Note, Physician Chief Complaint: AMS Pneumonia History of Present Illness: Previous notes and events reviewed awake and alert NAD dressing dry and intact bilateral lower extremity denies complaints of chest pain or palpitation patient is now DNR/DNI pending repeat AM labs to monitor LFTs - Current Medication List Current Medications: Active Medications Acetaminophen (Tylenol -) 650 mg PO Q8H PRN PRN Reason: PAIN LEVEL 4 - 6 Last Admin: 05/20/19 13:27 Dose: 650 mg Albuterol Sulfate (Ventolin 0.083% Nebulizer Soln -) 1 amp NEB Q6H PRN PRN Reason: SHORT OF BREATH/WHEEZING Amino Acids (Prosource No Carb Liquid Pkt) 30 ml PO DAILY@0800 [facility] Last Admin: 05/21/19 09:00 Dose: 30 ml Ascorbic Acid (Vitamin C -) 500 mg PO DAILY [facility] Last Admin: 05/21/19 09:19 Dose: 500 mg Famotidine (Pepcid -) 20 mg PO BID [facility] Last Admin: 05/21/19 09:19 Dose: 20 mg Furosemide (Lasix -) 20 mg PO Q2D [facility] Last Admin: 05/20/19 09:42 Dose: 20 mg Gabapentin (Neurontin -) 600 mg PO TID [facility] Last Admin: 05/21/19 06:39 Dose: 600 mg Piperacillin Sod/Tazobactam (Sod 3.375 gm/ Dextrose) 50 mls @ 100 mls/hr IVPB Q8H-IV GIRISH; Protocol Last Admin: 05/21/19 09:18 Dose: 100 mls/hr Potassium Chloride/Dextrose/Sod Cl (D5-1/2ns+30 Meq Kcl -) 30 meq in 1,000 mls @ 83 mls/hr IV ASDIR [facility] Last Admin: 05/20/19 22:24 Dose: 83 mls/hr Levothyroxine Sodium (Synthroid -) 100 mcg PO DAILY@0700 [facility] Last Admin: 05/21/19 06:38 Dose: 100 mcg Magnesium Oxide (Mag-Ox -) 400 mg PO DAILY [facility] Last Admin: 05/21/19 09:19 Dose: 400 mg Memantine (Namenda -) 5 mg PO BID [facility] Last Admin: 05/21/19 09:19 Dose: 5 mg Metoprolol Succinate (Toprol Xl -) 25 mg PO DAILY [facility] Last Admin: 05/21/19 09:19 Dose: 25 mg Mometasone Furoate (Asmanex 220mcg -) 1 puff IH DAILY [facility] Last Admin: 05/21/19 09:20 Dose: 1 puff Multi-Ingredient Ointment (Zinc Oxide) 1 applic TP TID [facility] Last Admin: 05/21/19 06:39 Dose: 1 applic Multivitamins/Minerals/Vitamin C (Tab-A-Vit -) 1 tab PO DAILY [facility] Last Admin: 05/21/19 09:18 Dose: 1 tab Non-Formulary Medication (Lenalidomide [Revlimid]) 1 tab PO DAILY [facility] Potassium Chloride (K-Dur -) 20 meq PO DAILY [facility] Last Admin: 05/21/19 09:19 Dose: 20 meq Pramipexole Dihydrochloride (Mirapex -) 0.25 mg PO TID [facility] Last Admin: 05/21/19 06:39 Dose: 0.25 mg Tramadol HCl (Ultram -) 50 mg PO Q8H PRN PRN Reason: PAIN LEVEL 1-5 Last Admin: 05/20/19 22:25 Dose: 50 mg Warfarin Sodium (Coumadin -) 6 mg PO DAILY@1800 [facility] Last Admin: 05/20/19 17:16 Dose: 6 mg - Objective Vital Signs: Vital Signs Temperature 98.1 F 05/21/19 06:07 Pulse Rate 59 L 05/21/19 06:07 Respiratory Rate 05/21/19 06:07 Blood Pressure 126/53 L 05/21/19 06:07 O2 Sat by Pulse Oximetry (%) 97 05/20/19 21:00 Constitutional: Yes: No Distress, Calm Eyes: Yes: Conjunctiva Clear HENT: Yes: Atraumatic Cardiovascular: Yes: Regular Rate and Rhythm Respiratory: Yes: Regular, Diminished, On Nasal O2 Gastrointestinal: Yes: Normal Bowel Sounds, Soft Genitourinary: Yes: [place] Present Musculoskeletal: Yes: Muscle Weakness Extremities: Yes: WNL Edema: Yes Edema: LLE: Trace, RLE: Trace Wound/Incision: Yes: Dressing Dry and Intact Neurological: Yes: Alert, Confusion, Pre-Existing Deficit Psychiatric: Yes: Alert, Oriented Labs: CBC, BMP 05/20/19 06:25 05/20/19 07:25 INR, PTT INR 2.38 (0.83-1.09) H 05/20/19 07:50 Microbiology 05/14/19 21:45 Blood - Peripheral Venous Blood Culture - Final NO GROWTH AFTER 5 DAYS INCUBATION 05/14/19 21:45 Blood - Peripheral Venous Blood Culture - Final Morganella Morganii 05/15/19 01:40 Urine - Urine - Catheterized Urine Culture - Final Lactose Fermenting Neg Bacilli Problem List - Problems (1) Altered mental state Assessment/Plan: -Head CT scan shows no CT evidence of acute intracranial pathology -Neuro checks q4h -possibly secondary to infection -improved Code(s): R41.82 - ALTERED MENTAL STATUS, UNSPECIFIED Qualifiers: Altered mental status type: disorientation Qualified Code(s): R41.0 - Disorientation, unspecified (2) PNA (pneumonia) Assessment/Plan: -CXR shows cardiomegaly with mild pulmonary venous congestion vs chronic interstitial lung disease, interval mild atelectatic changes vs infiltrates in left lung base -Pulmonary consult -BC positive -no leukocytosis -afebrile -Zosyn -LA 2.8~1.2 -bronchodilators -keep SpO2 >90% -O2 via NC -Influenza neg Code(s): J18.9 - PNEUMONIA, UNSPECIFIED ORGANISM Qualifiers: Pneumonia type: due to unspecified organism Laterality: right Lung location: lower lobe of lung Qualified Code(s): J18.9 - Pneumonia, unspecified organism (3) Afib Assessment/Plan: -resume Coumadin HS -INR 2.38 on 05/20/19 -monitor INR daily -therapeutic goal 2-3 Code(s): I48.91 - UNSPECIFIED ATRIAL FIBRILLATION (4) CHF (congestive heart failure) Assessment/Plan: -Furosemide q48h -daily weights -1L fluid restriction -strict I&O -low Na diet Code(s): I50.9 - HEART FAILURE, UNSPECIFIED (5) Hypothyroidism Assessment/Plan: -Levothyroxine Code(s): E03.9 - HYPOTHYROIDISM, UNSPECIFIED (6) Multiple myeloma Assessment/Plan: -Oncology consult -Revlimid Code(s): C90.00 - MULTIPLE MYELOMA NOT HAVING ACHIEVED REMISSION Qualifiers: Multiple myeloma remission status: unspecified Qualified Code(s): C90.00 - Multiple myeloma not having achieved remission (7) Supratherapeutic INR Assessment/Plan: -resolved -INR 2.38 on 05/21/19 -monitor INR daily -therapeutic goal 2-3 -may resume Coumadin Code(s): R79.1 - ABNORMAL COAGULATION PROFILE (8) Venous stasis ulcer Assessment/Plan: -Vascular on board -daily dressing change -RLE treat with calcium alginare and compression dressing -LLE treat with xeroform and compression dressing Code(s): I83.009 - VARICOSE VEINS OF UNSP LOWER EXTREMITY W ULCER OF UNSP SITE; L97.909 - NON-PRS CHRONIC ULC UNSP PRT OF UNSP LOW LEG W UNSP SEVERITY (9) Transaminitis Assessment/Plan: -AST 161, ALT 197, Alk Phos 187 on 05/20/19 -Abd US shows borderline hepatic enlargement -GI on board -Hepatitis profile pending Code(s): R74.0 - NONSPEC ELEV OF LEVELS OF TRANSAMNS & LACTIC ACID DEHYDRGNSE Assessment/Plan see problem list
[2019-05-21 10:01] LABS: HEMATOCRIT 32.1 % (32.4-45.2); HEMOGLOBIN 10.4 GM/dL (10.7-15.3); MCHC 32.3 g/dl (32.0-36.0); MEAN CELL VOLUME 92.8 fl (80-96); MEAN PLT VOLUME 9.8 fl (7.5-11.1); PLATELET COUNT 131 K/MM3 (134-434); RBC 3.46 M/mm3 (3.60-5.2); RDW 19.6 % (11.6-15.6); WHITE BLOOD COUNT 11.5 K/mm3 (4.0-10.0)
[2019-05-21 10:32] LABS: ALBUMIN 1.4 g/dl (3.4-5.0); BILIRUBIN,DIRECT 0.5 mg/dL (0.0-0.2); BILIRUBIN,TOTAL 0.9 mg/dL (0.2-1); BLOOD UREA NITROGEN 20.2 mg/dL (7-18); CALCIUM 8.3 mg/dL (8.5-10.1); CREATININE 1.3 mg/dL (0.55-1.3); POTASSIUM 3.9 mmol/L (3.5-5.1); TOT PROT 4.8 g/dl (6.4-8.2)
[2019-05-21 11:00] LABS: INR 2.78 (0.83-1.09); PROTHROMBIN TIME (PATIENT) 33.1 SEC (9.7-13.0)
--- NOTE | 2019-05-21 11:07 | PN ---
Progress Note (short form) - Note Progress Note: PULMONARY Denies shortness of breath, cough or wheezing. low grade fever yesterday. Vital Signs Period Temp Pulse Resp BP Sys/Ferrer Pulse Ox Last 24 Hr 97.9 F-100.6 F 58-59 20-20 92-126/36-53 97 Gen: NAD at rest Heart: RRR Lung: decreased breath sounds at the bases Abd: soft, nontender Ext: legs wrapped CBC, BMP 05/21/19 09:20 05/21/19 09:20 Active Medications Acetaminophen (Tylenol -) 650 mg PO Q8H PRN PRN Reason: PAIN LEVEL 4 - 6 Last Admin: 05/20/19 13:27 Dose: 650 mg Albuterol Sulfate (Ventolin 0.083% Nebulizer Soln -) 1 amp NEB Q6H PRN PRN Reason: SHORT OF BREATH/WHEEZING Amino Acids (Prosource No Carb Liquid Pkt) 30 ml PO DAILY@0800 [facility] Last Admin: 05/21/19 09:00 Dose: 30 ml Ascorbic Acid (Vitamin C -) 500 mg PO DAILY [facility] Last Admin: 05/21/19 09:19 Dose: 500 mg Famotidine (Pepcid -) 20 mg PO BID [facility] Last Admin: 05/21/19 09:19 Dose: 20 mg Furosemide (Lasix -) 20 mg PO Q2D [facility] Last Admin: 05/20/19 09:42 Dose: 20 mg Gabapentin (Neurontin -) 600 mg PO TID [facility] Last Admin: 05/21/19 06:39 Dose: 600 mg Piperacillin Sod/Tazobactam (Sod 3.375 gm/ Dextrose) 50 mls @ 100 mls/hr IVPB Q8H-IV [facility]; Protocol Last Admin: 05/21/19 09:18 Dose: 100 mls/hr Potassium Chloride/Dextrose/Sod Cl (D5-1/2ns+30 Meq Kcl -) 30 meq in 1,000 mls @ 83 mls/hr IV ASDIR [facility] Last Admin: 05/20/19 22:24 Dose: 83 mls/hr Levothyroxine Sodium (Synthroid -) 100 mcg PO DAILY@0700 [facility] Last Admin: 05/21/19 06:38 Dose: 100 mcg Magnesium Oxide (Mag-Ox -) 400 mg PO DAILY [facility] Last Admin: 01/27/20 09:19 Dose: 400 mg Memantine (Namenda -) 5 mg PO BID [facility] Last Admin: 05/21/19 09:19 Dose: 5 mg Metoprolol Succinate (Toprol Xl -) 25 mg PO DAILY [facility] Last Admin: 05/21/19 09:19 Dose: 25 mg Mometasone Furoate (Asmanex 220mcg -) 1 puff IH DAILY [facility] Last Admin: 05/21/19 09:20 Dose: 1 puff Multi-Ingredient Ointment (Zinc Oxide) 1 applic TP TID [facility] Last Admin: 05/21/19 06:39 Dose: 1 applic Multivitamins/Minerals/Vitamin C (Tab-A-Vit -) 1 tab PO DAILY [facility] Last Admin: 05/21/19 09:18 Dose: 1 tab Non-Formulary Medication (Lenalidomide [Revlimid]) 1 tab PO DAILY [facility] Potassium Chloride (K-Dur -) 20 meq PO DAILY [facility] Last Admin: 05/21/19 09:19 Dose: 20 meq Pramipexole Dihydrochloride (Mirapex -) 0.25 mg PO TID [facility] Last Admin: 05/21/19 06:39 Dose: 0.25 mg Tramadol HCl (Ultram -) 50 mg PO Q8H PRN PRN Reason: PAIN LEVEL 1-5 Last Admin: 05/20/19 22:25 Dose: 50 mg Warfarin Sodium (Coumadin -) 6 mg PO DAILY@1800 [facility] Last Admin: 05/20/19 17:16 Dose: 6 mg A/P Morganella Bacteremia Cellulitis/Infected Ulcers Sepsis Lactic Acidosis Multiple Myeloma Atrial Fibrillation Pulmonary HTN h/o DVT DM Thrombocytopenia Elevated LFTs Anemia - continue antibiotics - wound care - rate control - continue anticoagulation - monitor CBC, LFTs
[2019-05-21] MEDS: D5-1/2NS+30 MEQ KCL - 30 MEQ/1,000 ML INFUS.BAG IV SCH (16:55)
[2019-05-21] MEDS: WARFARIN NA 3 MG TABLET PO SCH (17:02)
--- NOTE | 2019-05-21 17:09 | PN ---
Progress Note (short form) - Note Progress Note: PAtient seen and examined mildly confused Last Vital Signs Temp Pulse Resp BP Pulse Ox 99.7 F H 55 L 20 116/50 L 98 05/21/19 15:01 05/21/19 15:01 05/21/19 15:01 05/21/19 15:05/21/19 10:00 Cor: RSR, No murmurs, No gallops Lungs: Clear to P&A Abd: Soft, Normal bowel sounds, No organomegaly Ext:No significant edema Abnormal Lab Results 05/21/19 05/21/19 05/21/19 09:20 09:20 09:20 WBC 11.5 H RBC 3.46 L Hgb 10.4 L Hct 32.1 L RDW 19.6 H Plt Count 131 L D PT with INR 33.10 H INR 2.78 H Sodium 147 H Chloride 113 H Anion Gap 7 L BUN 20.2 H Random Glucose 162 H Calcium 8.3 L Iron TIBC Iron Saturation Unsaturated IBC Ferritin Direct Bilirubin 0.5 H GGT 308 H AST 124 H ALT 206 H Alkaline Phosphatase 238 H Total Protein 4.8 L Albumin 1.4 L 05/21/19 09:20 WBC RBC Hgb Hct RDW Plt Count PT with INR INR Sodium Chloride Anion Gap BUN Random Glucose Calcium Iron 17 L TIBC 143 L Iron Saturation 11 L Unsaturated IBC 126 L Ferritin 1140.2 H Direct Bilirubin GGT AST ALT Alkaline Phosphatase Total Protein Albumin Active Medications Generic Name Dose Route Start Last Admin Trade Name Freq PRN Reason Stop Dose Admin Acetaminophen 650 mg 05/15/19 17:12 05/20/19 13:27 Tylenol - PO 650 mg Q8H PRN Administration PAIN LEVEL 4 - 6 Albuterol Sulfate 1 amp 05/15/19 17:20 Ventolin 0.083% Nebulizer Soln - NEB Q6H PRN SHORT OF BREATH/WHEEZING Amino Acids 30 ml 05/16/19 08:00 05/21/19 09:00 Prosource No Carb Liquid Pkt PO 30 ml DAILY@0800 [facility] Administration Ascorbic Acid 500 mg 05/16/19 10:00 05/21/19 09:19 Vitamin C - PO 500 mg DAILY [facility] Administration Famotidine 20 mg 05/15/19 22:00 05/21/19 09:19 Pepcid - PO 20 mg BID [facility] Administration Furosemide 20 mg 05/16/19 10:00 05/20/19 09:42 Lasix - PO 20 mg Q2D [facility] Administration Gabapentin 600 mg 05/15/19 22:00 05/21/19 13:29 Neurontin - PO 600 mg TID [facility] Administration Piperacillin Sod/Tazobactam 50 mls @ 100 mls/hr 05/15/19 18:00 05/21/19 17:02 Sod 3.375 gm/ Dextrose IVPB 100 mls/hr Q8H-IV [facility] Administration Protocol Potassium Chloride/Dextrose/Sod Cl 30 meq in 1,000 mls @ 83 mls/hr 05/18/19 14 :30 05/21/19 16:55 D5-1/2ns+30 Meq Kcl - IV 83 mls/hr ASDIR [facility] Administration Levothyroxine Sodium 100 mcg 05/16/19 07:00 05/21/19 06:38 Synthroid - PO 100 mcg DAILY@0700 [facility] Administration Magnesium Oxide 400 mg 05/16/19 10:00 05/21/19 09:19 Mag-Ox - PO 400 mg DAILY [facility] Administration Memantine 5 mg 05/15/19 22:00 05/21/19 09:19 Namenda - PO 5 mg BID [facility] Administration Metoprolol Succinate 25 mg 05/16/19 10:00 05/21/19 09:19 Toprol Xl - PO 25 mg DAILY [facility] Administration Mometasone Furoate 1 puff 05/16/19 10:00 05/21/19 09:20 Asmanex 220mcg - IH 1 puff DAILY [facility] Administration Multi-Ingredient Ointment 1 applic 05/15/19 22:00 05/21/19 13:31 Zinc Oxide TP 1 applic TID [facility] Administration Multivitamins/Minerals/Vitamin C 1 tab 05/16/19 10:00 05/21/19 09:18 Tab-A-Vit - PO 1 tab DAILY [facility] Administration Non-Formulary Medication 1 tab 05/16/19 10:00 Lenalidomide [Revlimid] PO DAILY [facility] Potassium Chloride 20 meq 05/17/19 12:00 05/21/19 09:19 K-Dur - PO 20 meq DAILY [facility] Administration Pramipexole Dihydrochloride 0.25 mg 05/15/19 22:00 05/21/19 13:30 Mirapex - PO 0.25 mg TID [facility] Administration Tramadol HCl 50 mg 05/15/19 17:12 05/20/19 22:25 Ultram - PO 50 mg Q8H PRN Administration PAIN LEVEL 1-5 Warfarin Sodium 6 mg 05/20/19 18:00 05/21/19 17:02 Coumadin - PO 6 mg DAILY@1800 [facility] Administration A/P morganella bacteremia- suspect source is her legs--s/p zosyn cellulitis/infected ulcers improving platelets recovering multiple myeloma h/o DVTs --on coumadin monitor INR closely while on antibiotics abnl lfts-- for ultrasound needs close monitoring of LFTs needs close fiollow up in the office--[phone]
[2019-05-22] MEDS ORDERED: PIPERACILLIN/TAZOBACTAM 3.375 GM VIAL IVPB ONE ×3 (00:16→16:49)
[2019-05-22] MEDS ORDERED: DEXTROSE 5%-WATER - 50 ML IVPB ONE ×3 (00:16→16:49)
[2019-05-22] MEDS: PIPERACILLIN/TAZOB 3.375 GM 3.375 GM in DEXTROSE 5%-WATER - 50 ML IVPB SCH ×3 (01:40→17:13)
[2019-05-22] MEDS: GABAPENTIN 300 MG CAPSULE PO SCH ×3 (06:04→21:29)
[2019-05-22] MEDS: PRAMIPEXOLE DIHYDROCHLORIDE 0.25 MG TABLET PO SCH ×3 (06:04→21:29)
[2019-05-22] MEDS: LEVOTHYROXINE NA 100 MCG TABLET (FP) PO SCH (06:04)
[2019-05-22] MEDS: ZINC OXIDE 20% TOPICAL OINTMENT 30 GM TUBE TP SCH ×3 (06:04→21:29)
[2019-05-22 07:06] LABS: HEMATOCRIT 31.2 % (32.4-45.2); HEMOGLOBIN 10.3 GM/dL (10.7-15.3); MCH 30.5 pg (25.7-33.7); MEAN CELL VOLUME 92.2 fl (80-96); MEAN PLT VOLUME 9.7 fl (7.5-11.1); PLATELET COUNT 129 K/MM3 (134-434); RBC 3.38 M/mm3 (3.60-5.2); RDW 19.4 % (11.6-15.6)
[2019-05-22 07:30] LABS: ALBUMIN 1.4 g/dl (3.4-5.0); BILIRUBIN,DIRECT 0.4 mg/dL (0.0-0.2); BILIRUBIN,TOTAL 0.6 mg/dL (0.2-1); BLOOD UREA NITROGEN 16.4 mg/dL (7-18); CALCIUM 7.8 mg/dL (8.5-10.1); CREATININE 1.2 mg/dL (0.55-1.3); TOT PROT 4.4 g/dl (6.4-8.2)
[2019-05-22] MEDS: FUROSEMIDE 20 MG TABLET (FP) PO SCH (09:50)
[2019-05-22] MEDS: AMINO ACIDS/PROTEIN HYDROLYS 30 ML LIQUID.PKT PO SCH (09:50)
[2019-05-22] MEDS: MULTIVITAMINS (DAILY MVI) TABLET (FP) PO SCH (09:50)
[2019-05-22] MEDS: POTASSIUM CHLORIDE TABS 20 MEQ TABLET.ER (FP) PO SCH (09:51)
[2019-05-22] MEDS: MAGNESIUM OXIDE 400 MG TABLET (FP) PO SCH (09:51)
[2019-05-22] MEDS: LENALIDOMIDE PO SCH (09:51)
[2019-05-22] MEDS: metoPROLOL SUCCINATE 25 MG TAB.SR.24H (FP) PO SCH (09:51)
[2019-05-22] MEDS: ASCORBIC ACID 500 MG TABLET (FP) PO SCH (09:51)
[2019-05-22] MEDS: MEMANTINE HCL 5 MG TABLET (UD) PO SCH ×2 (09:51→21:29)
[2019-05-22] MEDS: FAMOTIDINE 20 MG TABLET PO SCH ×2 (09:51→21:29)
[2019-05-22] MEDS: MOMETASONE FUROATE 220 MCG/IH INHALER IH SCH (09:51)
--- NOTE | 2019-05-22 11:51 | PN ---
Progress Note (short form) - Note Progress Note: PULMONARY Confused but denies shortness of breath, cough or wheezing. No further fevers. Vital Signs Period Temp Pulse Resp BP Sys/Ferrer Pulse Ox Last 24 Hr 98.6 F-99.7 F 55-83 20-20 110-147/50-65 97-100 Gen: NAD at rest Heart: RRR Lung: decreased breath sounds at the bases Abd: soft, nontender Ext: legs wrapped CBC, BMP 05/22/19 06:05 05/22/19 06:05 Active Medications Acetaminophen (Tylenol -) 650 mg PO Q8H PRN PRN Reason: PAIN LEVEL 4 - 6 Last Admin: 05/20/19 13:27 Dose: 650 mg Albuterol Sulfate (Ventolin 0.083% Nebulizer Soln -) 1 amp NEB Q6H PRN PRN Reason: SHORT OF BREATH/WHEEZING Amino Acids (Prosource No Carb Liquid Pkt) 30 ml PO DAILY@0800 [facility] Last Admin: 05/22/19 09:50 Dose: 30 ml Ascorbic Acid (Vitamin C -) 500 mg PO DAILY [facility] Last Admin: 05/22/19 09:51 Dose: 500 mg Famotidine (Pepcid -) 20 mg PO BID [facility] Last Admin: 05/22/19 09:51 Dose: 20 mg Furosemide (Lasix -) 20 mg PO Q2D [facility] Last Admin: 05/22/19 09:50 Dose: 20 mg Gabapentin (Neurontin -) 600 mg PO TID [facility] Last Admin: 05/22/19 06:04 Dose: 600 mg Piperacillin Sod/Tazobactam (Sod 3.375 gm/ Dextrose) 50 mls @ 100 mls/hr IVPB Q8H-IV [facility]; Protocol Last Admin: 05/22/19 09:50 Dose: 100 mls/hr Potassium Chloride/Dextrose/Sod Cl (D5-1/2ns+30 Meq Kcl -) 30 meq in 1,000 mls @ 83 mls/hr IV ASDIR [facility] Last Admin: 05/21/19 16:55 Dose: 83 mls/hr Levothyroxine Sodium (Synthroid -) 100 mcg PO DAILY@0700 [facility] Last Admin: 05/22/19 06:04 Dose: 100 mcg Magnesium Oxide (Mag-Ox -) 400 mg PO DAILY [facility] Last Admin: 05/22/19 09:51 Dose: 400 mg Memantine (Namenda -) 5 mg PO BID [facility] Last Admin: 05/22/19 09:51 Dose: 5 mg Metoprolol Succinate (Toprol Xl -) 25 mg PO DAILY [facility] Last Admin: 05/22/19 09:51 Dose: 25 mg Mometasone Furoate (Asmanex 220mcg -) 1 puff IH DAILY [facility] Last Admin: 05/22/19 09:51 Dose: 1 puff Multi-Ingredient Ointment (Zinc Oxide) 1 applic TP TID [facility] Last Admin: 05/22/19 06:04 Dose: 1 applic Multivitamins/Minerals/Vitamin C (Tab-A-Vit -) 1 tab PO DAILY [facility] Last Admin: 05/22/19 09:50 Dose: 1 tab Non-Formulary Medication (Lenalidomide [Revlimid]) 1 tab PO DAILY [facility] Last Admin: 05/22/19 09:51 Dose: 1 tab Potassium Chloride (K-Dur -) 20 meq PO DAILY [facility] Last Admin: 05/22/19 09:51 Dose: 20 meq Pramipexole Dihydrochloride (Mirapex -) 0.25 mg PO TID [facility] Last Admin: 05/22/19 06:04 Dose: 0.25 mg Warfarin Sodium (Coumadin -) 6 mg PO DAILY@1800 [facility] Last Admin: 05/21/19 17:02 Dose: 6 mg A/P Morganella Bacteremia Cellulitis/Infected Ulcers Sepsis Lactic Acidosis Multiple Myeloma Atrial Fibrillation Pulmonary HTN h/o DVT DM Thrombocytopenia Elevated LFTs Anemia - continue antibiotics - wound care - rate control - continue anticoagulation - monitor CBC, LFTs
[2019-05-22 13:07] LABS: TRANSGLUTAMINASE IGA < 2 U/mL (0-3); TRANSGLUTAMINASE IGG < 2 U/mL (0-5)
[2019-05-22] MEDS: D5-1/2NS+30 MEQ KCL - 30 MEQ/1,000 ML INFUS.BAG IV SCH (13:31)
--- NOTE | 2019-05-22 13:43 | PN ---
Progress Note, Physician Chief Complaint: AMS Pneumonia History of Present Illness: Previous notes and events reviewed awake and alert NAD dressing dry and intact bilateral lower extremity denies complaints of chest pain or palpitation LFTs showing downtrend labas show WBC trending down - Current Medication List Current Medications: Active Medications Acetaminophen (Tylenol -) 650 mg PO Q8H PRN PRN Reason: PAIN LEVEL 4 - 6 Last Admin: 05/20/19 13:27 Dose: 650 mg Albuterol Sulfate (Ventolin 0.083% Nebulizer Soln -) 1 amp NEB Q6H PRN PRN Reason: SHORT OF BREATH/WHEEZING Amino Acids (Prosource No Carb Liquid Pkt) 30 ml PO DAILY@0800 [facility] Last Admin: 05/22/19 09:50 Dose: 30 ml Ascorbic Acid (Vitamin C -) 500 mg PO DAILY [facility] Last Admin: 05/22/19 09:51 Dose: 500 mg Famotidine (Pepcid -) 20 mg PO BID [facility] Last Admin: 05/22/19 09:51 Dose: 20 mg Furosemide (Lasix -) 20 mg PO Q2D [facility] Last Admin: 05/22/19 09:50 Dose: 20 mg Gabapentin (Neurontin -) 600 mg PO TID [facility] Last Admin: 05/22/19 13:31 Dose: 600 mg Piperacillin Sod/Tazobactam (Sod 3.375 gm/ Dextrose) 50 mls @ 100 mls/hr IVPB Q8H-IV [facility]; Protocol Last Admin: 05/22/19 09:50 Dose: 100 mls/hr Potassium Chloride/Dextrose/Sod Cl (D5-1/2ns+30 Meq Kcl -) 30 meq in 1,000 mls @ 83 mls/hr IV ASDIR [facility] Last Admin: 05/22/19 13:31 Dose: Not Given Levothyroxine Sodium (Synthroid -) 100 mcg PO DAILY@0700 [facility] Last Admin: 05/22/19 06:04 Dose: 100 mcg Magnesium Oxide (Mag-Ox -) 400 mg PO DAILY [facility] Last Admin: 05/22/19 09:51 Dose: 400 mg Memantine (Namenda -) 5 mg PO BID [facility] Last Admin: 05/22/19 09:51 Dose: 5 mg Metoprolol Succinate (Toprol Xl -) 25 mg PO DAILY [facility] Last Admin: 05/22/19 09:51 Dose: 25 mg Mometasone Furoate (Asmanex 220mcg -) 1 puff IH DAILY [facility] Last Admin: 05/22/19 09:51 Dose: 1 puff Multi-Ingredient Ointment (Zinc Oxide) 1 applic TP TID [facility] Last Admin: 05/22/19 13:31 Dose: 1 applic Multivitamins/Minerals/Vitamin C (Tab-A-Vit -) 1 tab PO DAILY [facility] Last Admin: 05/22/19 09:50 Dose: 1 tab Non-Formulary Medication (Lenalidomide [Revlimid]) 1 tab PO DAILY [facility] Last Admin: 05/22/19 09:51 Dose: 1 tab Potassium Chloride (K-Dur -) 20 meq PO DAILY [facility] Last Admin: 05/22/19 09:51 Dose: 20 meq Pramipexole Dihydrochloride (Mirapex -) 0.25 mg PO TID [facility] Last Admin: 05/22/19 13:31 Dose: 0.25 mg Warfarin Sodium (Coumadin -) 6 mg PO DAILY@1800 [facility] Last Admin: 05/21/19 17:02 Dose: 6 mg - Objective Vital Signs: Vital Signs Temperature 98.7 F 05/22/19 10:00 Pulse Rate 83 05/22/19 10:00 Respiratory Rate 20 05/22/19 10:00 Blood Pressure 147/65 05/22/19 10:00 O2 Sat by Pulse Oximetry (%) 100 05/22/19 09:00 Constitutional: Yes: No Distress, Calm Eyes: Yes: Conjunctiva Clear HENT: Yes: Atraumatic Cardiovascular: Yes: Regular Rate and Rhythm Respiratory: Yes: Regular, Diminished, On Nasal O2 Gastrointestinal: Yes: Normal Bowel Sounds, Soft Genitourinary: Yes: [place] Present Musculoskeletal: Yes: Muscle Weakness Extremities: Yes: WNL Edema: Yes Edema: LLE: Trace, RLE: Trace Wound/Incision: Yes: Dressing Dry and Intact Neurological: Yes: Alert, Oriented (knows name, location ([facility]), year (2019)), Confusion Psychiatric: Yes: Alert, Oriented (knows name, location ([facility]), (2019)) Labs: CBC, BMP 05/22/19 06:05 05/22/19 06:05 INR, PTT INR 2.78 (0.83-1.09) H 05/21/19 09:20 Microbiology 05/14/19 21:45 Blood - Peripheral Venous Blood Culture - Final NO GROWTH AFTER 5 DAYS INCUBATION 05/14/19 21:45 Blood - Peripheral Venous Blood Culture - Final Morganella Morganii 05/15/19 01:40 Urine - Urine - Catheterized Urine Culture - Final Lactose Fermenting Neg Bacilli Problem List - Problems (1) Altered mental state Assessment/Plan: -Head CT scan shows no CT evidence of acute intracranial pathology -Neuro checks q4h -possibly secondary to infection -improved Code(s): R41.82 - ALTERED MENTAL STATUS, UNSPECIFIED Qualifiers: Altered mental status type: disorientation Qualified Code(s): R41.0 - Disorientation, unspecified (2) PNA (pneumonia) Assessment/Plan: -CXR shows cardiomegaly with mild pulmonary venous congestion vs chronic interstitial lung disease, interval mild atelectatic changes vs infiltrates in left lung base -Pulmonary consult -BC positive -no leukocytosis -afebrile -Zosyn -LA 2.8~1.2 -bronchodilators -keep SpO2 >90% -O2 via NC -Influenza neg Code(s): J18.9 - PNEUMONIA, UNSPECIFIED ORGANISM Qualifiers: Pneumonia type: due to unspecified organism Laterality: right Lung location: lower lobe of lung Qualified Code(s): J18.9 - Pneumonia, unspecified organism (3) Afib Assessment/Plan: -resume Coumadin HS -INR 2.78 on 05/21/19 -monitor INR daily -therapeutic goal 2-3 Code(s): I48.91 - UNSPECIFIED ATRIAL FIBRILLATION (4) CHF (congestive heart failure) Assessment/Plan: -Furosemide q48h -daily weights -1L fluid restriction -strict I&O -low Na diet Code(s): I50.9 - HEART FAILURE, UNSPECIFIED (5) Hypothyroidism Assessment/Plan: -Levothyroxine Code(s): E03.9 - HYPOTHYROIDISM, UNSPECIFIED (6) Multiple myeloma Assessment/Plan: -Oncology consult -Revlimid Code(s): C90.00 - MULTIPLE MYELOMA NOT HAVING ACHIEVED REMISSION Qualifiers: Multiple myeloma remission status: unspecified Qualified Code(s): C90.00 - Multiple myeloma not having achieved remission (7) Supratherapeutic INR Assessment/Plan: -resolved -INR 2.78 on 05/21/19 -monitor INR daily -therapeutic goal 2-3 -may resume Coumadin Code(s): R79.1 - ABNORMAL COAGULATION PROFILE (8) Venous stasis ulcer Assessment/Plan: -Vascular on board -daily dressing change -RLE treat with calcium alginare and compression dressing -LLE treat with xeroform and compression dressing -offloading Code(s): I83.009 - VARICOSE VEINS OF UNSP LOWER EXTREMITY W ULCER OF UNSP SITE; L97.909 - NON-PRS CHRONIC ULC UNSP PRT OF UNSP LOW LEG W UNSP SEVERITY (9) Transaminitis Assessment/Plan: -AST 79, ALT 163, Alk Phos 240 -Abd US shows borderline hepatic enlargement -GI on board -Hepatitis profile pending Code(s): R74.0 - NONSPEC ELEV OF LEVELS OF TRANSAMNS & LACTIC ACID DEHYDRGNSE Assessment/Plan see problem list
--- NOTE | 2019-05-22 13:58 | PN.GI ---
GI Progress Note Subjective: No acute events States feeling well - Objective Vital Signs: Vital Signs Temperature 98.7 F 05/22/19 10:00 Pulse Rate 83 05/22/19 10:00 Respiratory Rate 05/22/19 10:00 Blood Pressure 147/65 05/22/19 10:00 O2 Sat by Pulse Oximetry (%) 100 05/22/19 09:00 Constitutional: Calm Eyes: No: Sclera Icterus Cardiovascular: Yes: Regular Rate and Rhythm. No: Murmur Respiratory: Yes: Diminished (Decreased BS at bases b/l with poor insp effort) Gastrointestinal Inspection: No: Distention ...Auscultate: Yes: Normoactive Bowel Sounds ...Palpate: Yes: Soft. No: Hepatomegaly, Splenomegaly, Tenderness Neurological: Yes: Alert, Confusion Labs: CBC, BMP 05/22/19 06:05 05/22/19 06:05 INR, PTT INR 2.78 (0.83-1.09) H 05/21/19 09:20 Hepatic Panel Total Bilirubin 0.6 mg/dL (0.2-1) 05/22/19 06:05 Direct Bilirubin 0.4 mg/dL (0.0-0.2) H 05/22/19 06:05 AST 79 U/L (15-37) H 05/22/19 06:05 ALT 163 U/L (13-61) H 05/22/19 06:05 Alkaline Phosphatase 240 U/L (45-117) H 05/22/19 06:05 Albumin 1.4 g/dl (3.4-5.0) L 05/22/19 06:05 Problem List - Problems (1) Abnormal liver function tests Assessment/Plan: Asymptomatic with slow improvement Question if reactive secondary to sepsis Continue to monitor I discontinued APAP and avoid further hepatotoxic agents Acute hepatitis panel negative. Full hepatitis panel pending. If ALP remains elevated, bilirubin begins to rise, MRCP when feasible Monitor liver chemistries Code(s): R94.5 - ABNORMAL RESULTS OF LIVER FUNCTION STUDIES
[2019-05-22] MEDS: traMADol HCL 50 MG TABLET PO PRN (15:48)
[2019-05-22 16:28] LABS: INR 3.62 (0.83-1.09); PROTHROMBIN TIME (PATIENT) 43.3 SEC (9.7-13.0)
--- NOTE | 2019-05-22 16:39 | PN ---
Progress Note, Physician History of Present Illness: AWAKE IN BED CONFUSED OFFERS NO COMPLAINTS LOW GRADE TEMP, SL ELEVATION IN WBC NOTED LFTS REMAIN ELEVATED AZOTEMIA IMPROVED - Current Medication List Current Medications: Active Medications Albuterol Sulfate (Ventolin 0.083% Nebulizer Soln -) 1 amp NEB Q6H PRN PRN Reason: SHORT OF BREATH/WHEEZING Amino Acids (Prosource No Carb Liquid Pkt) 30 ml PO DAILY@0800 [facility] Last Admin: 05/22/19 09:50 Dose: 30 ml Ascorbic Acid (Vitamin C -) 500 mg PO DAILY [facility] Last Admin: 05/22/19 09:51 Dose: 500 mg Famotidine (Pepcid -) 20 mg PO BID [facility] Last Admin: 05/22/19 09:51 Dose: 20 mg Furosemide (Lasix -) 20 mg PO Q2D [facility] Last Admin: 05/22/19 09:50 Dose: 20 mg Gabapentin (Neurontin -) 600 mg PO TID [facility] Last Admin: 05/22/19 13:31 Dose: 600 mg Piperacillin Sod/Tazobactam (Sod 3.375 gm/ Dextrose) 50 mls @ 100 mls/hr IVPB Q8H-IV [facility]; Protocol Last Admin: 05/22/19 09:50 Dose: 100 mls/hr Potassium Chloride/Dextrose/Sod Cl (D5-1/2ns+30 Meq Kcl -) 30 meq in 1,000 mls @ 83 mls/hr IV ASDIR [facility] Last Admin: 05/22/19 13:31 Dose: Not Given Levothyroxine Sodium (Synthroid -) 100 mcg PO DAILY@0700 [facility] Last Admin: 05/22/19 06:04 Dose: 100 mcg Magnesium Oxide (Mag-Ox -) 400 mg PO DAILY [facility] Last Admin: 05/22/19 09:51 Dose: 400 mg Memantine (Namenda -) 5 mg PO BID [facility] Last Admin: 05/22/19 09:51 Dose: 5 mg Metoprolol Succinate (Toprol Xl -) 25 mg PO DAILY [facility] Last Admin: 05/22/19 09:51 Dose: 25 mg Mometasone Furoate (Asmanex 220mcg -) 1 puff IH DAILY [facility] Last Admin: 05/22/19 09:51 Dose: 1 puff Multi-Ingredient Ointment (Zinc Oxide) 1 applic TP TID [facility] Last Admin: 05/22/19 13:31 Dose: 1 applic Multivitamins/Minerals/Vitamin C (Tab-A-Vit -) 1 tab PO DAILY [facility] Last Admin: 05/22/19 09:50 Dose: 1 tab Non-Formulary Medication (Lenalidomide [Revlimid]) 1 tab PO DAILY [facility] Last Admin: 05/22/19 09:51 Dose: 1 tab Potassium Chloride (K-Dur -) 20 meq PO DAILY [facility] Last Admin: 05/22/19 09:51 Dose: 20 meq Pramipexole Dihydrochloride (Mirapex -) 0.25 mg PO TID [facility] Last Admin: 05/22/19 13:31 Dose: 0.25 mg Tramadol HCl (Ultram -) 50 mg PO Q8H PRN PRN Reason: PAIN LEVEL 1-5 Last Admin: 05/22/19 15:48 Dose: 50 mg Warfarin Sodium (Coumadin -) 6 mg PO DAILY@1800 [facility] Last Admin: 05/21/19 17:02 Dose: 6 mg - Objective Vital Signs: Vital Signs Temperature 99.8 F H 05/22/19 15:16 Pulse Rate 66 05/22/19 15:16 Respiratory Rate 05/22/19 15:16 Blood Pressure 113/42 L 05/22/19 15:16 O2 Sat by Pulse Oximetry (%) 100 05/22/19 09:00 Constitutional: Yes: Cachectic Eyes: Yes: Conjunctiva Clear Cardiovascular: Yes: Regular Rate and Rhythm, S1, S2 Respiratory: Yes: Diminished Gastrointestinal: Yes: Normal Bowel Sounds, Soft. No: Tenderness Extremities: Yes: Other (DECREASED LE EDEMA L LE REMAINS WARM + SEROUS ULCER DRAINAGE) Edema: Yes Labs: CBC, BMP 05/22/19 06:05 05/22/19 06:05 INR, PTT INR 3.62 (0.83-1.09) H 05/22/19 15:20 Assessment/Plan GRAM NEGATIVE BACTEREMIA MORGANELLA INFECTED L LE ULCER DAY #9 ZOSYN ? PO ANTIBIOTICS AM LOCAL WOUND CARE
[2019-05-22] MEDS: WARFARIN NA 3 MG TABLET PO SCH (17:13)
[2019-05-22 19:08] LABS: HEP B CORE AB, TOT Negative (Negative)
[2019-05-23] MEDS ORDERED: PIPERACILLIN/TAZOBACTAM 3.375 GM VIAL IVPB ONE ×2 (01:23→11:18)
[2019-05-23] MEDS ORDERED: DEXTROSE 5%-WATER - 50 ML IVPB ONE ×2 (01:23→11:19)
[2019-05-23] MEDS: PIPERACILLIN/TAZOB 3.375 GM 3.375 GM in DEXTROSE 5%-WATER - 50 ML IVPB SCH ×2 (02:07→11:33)
[2019-05-23] MEDS: LEVOTHYROXINE NA 100 MCG TABLET (FP) PO SCH (06:08)
[2019-05-23] MEDS: GABAPENTIN 300 MG CAPSULE PO SCH ×3 (06:08→22:08)
[2019-05-23] MEDS: ZINC OXIDE 20% TOPICAL OINTMENT 30 GM TUBE TP SCH ×3 (06:08→22:09)
[2019-05-23] MEDS: PRAMIPEXOLE DIHYDROCHLORIDE 0.25 MG TABLET PO SCH ×3 (06:08→22:09)
[2019-05-23] MEDS: AMINO ACIDS/PROTEIN HYDROLYS 30 ML LIQUID.PKT PO SCH (09:15)
--- NOTE | 2019-05-23 10:04 | PN ---
Progress Note, Physician Chief Complaint: AMS Pneumonia History of Present Illness: Previous notes and events reviewed awake and alert NAD dressing dry and intact bilateral lower extremity denies complaints of chest pain or palpitation INR 3.62~Coumadin on hold, pending repeat lab this AM - Current Medication List Current Medications: Active Medications Albuterol Sulfate (Ventolin 0.083% Nebulizer Soln -) 1 amp NEB Q6H PRN PRN Reason: SHORT OF BREATH/WHEEZING Amino Acids (Prosource No Carb Liquid Pkt) 30 ml PO DAILY@0800 [facility] Last Admin: 05/23/19 09:15 Dose: Not Given Ascorbic Acid (Vitamin C -) 500 mg PO DAILY [facility] Last Admin: 05/22/19 09:51 Dose: 500 mg Famotidine (Pepcid -) 20 mg PO BID [facility] Last Admin: 05/22/19 21:29 Dose: 20 mg Furosemide (Lasix -) 20 mg PO Q2D [facility] Last Admin: 05/22/19 09:50 Dose: 20 mg Gabapentin (Neurontin -) 600 mg PO TID [facility] Last Admin: 05/23/19 06:08 Dose: 600 mg Piperacillin Sod/Tazobactam (Sod 3.375 gm/ Dextrose) 50 mls @ 100 mls/hr IVPB Q8H-IV [facility]; Protocol Last Admin: 05/23/19 02:07 Dose: 100 mls/hr Potassium Chloride/Dextrose/Sod Cl (D5-1/2ns+30 Meq Kcl -) 30 meq in 1,000 mls @ 83 mls/hr IV ASDIR [facility] Last Admin: 05/22/19 13:31 Dose: Not Given Levothyroxine Sodium (Synthroid -) 100 mcg PO DAILY@0700 [facility] Last Admin: 05/23/19 06:08 Dose: 100 mcg Magnesium Oxide (Mag-Ox -) 400 mg PO DAILY [facility] Last Admin: 05/22/19 09:51 Dose: 400 mg Memantine (Namenda -) 5 mg PO BID [facility] Last Admin: 05/22/19 21:29 Dose: 5 mg Metoprolol Succinate (Toprol Xl -) 25 mg PO DAILY [facility] Last Admin: 05/22/19 09:51 Dose: 25 mg Mometasone Furoate (Asmanex 220mcg -) 1 puff IH DAILY [facility] Last Admin: 05/22/19 09:51 Dose: 1 puff Multi-Ingredient Ointment (Zinc Oxide) 1 applic TP TID [facility] Last Admin: 05/23/19 06:08 Dose: 1 applic Multivitamins/Minerals/Vitamin C (Tab-A-Vit -) 1 tab PO DAILY [facility] Last Admin: 05/22/19 09:50 Dose: 1 tab Non-Formulary Medication (Lenalidomide [Revlimid]) 1 tab PO DAILY [facility] Last Admin: 05/22/19 09:51 Dose: 1 tab Potassium Chloride (K-Dur -) 20 meq PO DAILY [facility] Last Admin: 05/22/19 09:51 Dose: 20 meq Pramipexole Dihydrochloride (Mirapex -) 0.25 mg PO TID [facility] Last Admin: 05/23/19 06:08 Dose: 0.25 mg Tramadol HCl (Ultram -) 50 mg PO Q8H PRN PRN Reason: PAIN LEVEL 1-5 Last Admin: 05/22/19 15:48 Dose: 50 mg Warfarin Sodium (Coumadin -) 6 mg PO DAILY@1800 [facility] Last Admin: 05/22/19 17:13 Dose: 6 mg - Objective Vital Signs: Vital Signs Temperature 98.5 F 05/23/19 06:05 Pulse Rate 52 L 05/23/19 06:05 Respiratory Rate 20 05/23/19 06:05 Blood Pressure 112/49 L 05/23/19 06:05 O2 Sat by Pulse Oximetry (%) 100 05/22/19 21:00 Constitutional: Yes: No Distress, Calm Eyes: Yes: Conjunctiva Clear HENT: Yes: Atraumatic Cardiovascular: Yes: Regular Rate and Rhythm Respiratory: Yes: Regular, Diminished Gastrointestinal: Yes: Normal Bowel Sounds Genitourinary: Yes: [place] Present Musculoskeletal: Yes: Muscle Weakness Extremities: Yes: WNL (R foot), Cool Edema: Yes Edema: LLE: Trace, RLE: Trace Wound/Incision: Yes: Dressing Dry and Intact Neurological: Yes: Alert, Confusion Psychiatric: Yes: Alert Labs: CBC, BMP 05/22/19 06:05 05/22/19 06:05 INR, PTT INR 3.62 (0.83-1.09) H 05/22/19 15:20 Microbiology 05/14/19 21:45 Blood - Peripheral Venous Blood Culture - Final NO GROWTH AFTER 5 DAYS INCUBATION 05/14/19 21:45 Blood - Peripheral Venous Blood Culture - Final Morganella Morganii 05/15/19 01:40 Urine - Urine - Catheterized Urine Culture - Final Lactose Fermenting Neg Bacilli Problem List - Problems (1) Altered mental state Assessment/Plan: -Head CT scan shows no CT evidence of acute intracranial pathology -Neuro checks q4h -possibly secondary to infection -improved Code(s): R41.82 - ALTERED MENTAL STATUS, UNSPECIFIED Qualifiers: Altered mental status type: disorientation Qualified Code(s): R41.0 - Disorientation, unspecified (2) PNA (pneumonia) Assessment/Plan: -CXR shows cardiomegaly with mild pulmonary venous congestion vs chronic interstitial lung disease, interval mild atelectatic changes vs infiltrates in left lung base -Pulmonary consult -BC positive -no leukocytosis -afebrile -Zosyn -LA 2.8~1.2 -bronchodilators -keep SpO2 >90% -O2 via NC -Influenza neg Code(s): J18.9 - PNEUMONIA, UNSPECIFIED ORGANISM Qualifiers: Pneumonia type: due to unspecified organism Laterality: right Lung location: lower lobe of lung Qualified Code(s): J18.9 - Pneumonia, unspecified organism (3) Afib Assessment/Plan: -Coumadin HS on hold -INR 3.62 -monitor INR daily -therapeutic goal 2-3 Code(s): I48.91 - UNSPECIFIED ATRIAL FIBRILLATION (4) CHF (congestive heart failure) Assessment/Plan: -Furosemide q48h -daily weights -1L fluid restriction -strict I&O -low Na diet Code(s): I50.9 - HEART FAILURE, UNSPECIFIED (5) Hypothyroidism Assessment/Plan: -Levothyroxine Code(s): E03.9 - HYPOTHYROIDISM, UNSPECIFIED (6) Multiple myeloma Assessment/Plan: -Oncology consult -Revlimid Code(s): C90.00 - MULTIPLE MYELOMA NOT HAVING ACHIEVED REMISSION Qualifiers: Multiple myeloma remission status: unspecified Qualified Code(s): C90.00 - Multiple myeloma not having achieved remission (7) Supratherapeutic INR Assessment/Plan: -INR 3.62 -monitor INR daily -therapeutic goal 2-3 -Coumadin on hold Code(s): R79.1 - ABNORMAL COAGULATION PROFILE (8) Venous stasis ulcer Assessment/Plan: -Vascular on board -daily dressing change -RLE treat with calcium alginare and compression dressing -LLE treat with xeroform and compression dressing -offloading -Doppler RLE ordered Code(s): I83.009 - VARICOSE VEINS OF UNSP LOWER EXTREMITY W ULCER OF UNSP SITE; L97.909 - NON-PRS CHRONIC ULC UNSP PRT OF UNSP LOW LEG W UNSP SEVERITY (9) Transaminitis Assessment/Plan: -AST 79, ALT 163, Alk Phos 240 -Abd US shows borderline hepatic enlargement -GI on board -Hepatitis profile pending Code(s): R74.0 - NONSPEC ELEV OF LEVELS OF TRANSAMNS & LACTIC ACID DEHYDRGNSE Assessment/Plan see problem list will begin d/c planning when switched to PO ABT
--- NOTE | 2019-05-23 11:12 | PN ---
Progress Note, Physician History of Present Illness: AWAKE IN BED LESS CONFUSED OFFERS NO COMPLAINTS AFEBRILE - Current Medication List Current Medications: Active Medications Albuterol Sulfate (Ventolin 0.083% Nebulizer Soln -) 1 amp NEB Q6H PRN PRN Reason: SHORT OF BREATH/WHEEZING Amino Acids (Prosource No Carb Liquid Pkt) 30 ml PO DAILY@0800 [facility] Last Admin: 05/23/19 09:15 Dose: Not Given Ascorbic Acid (Vitamin C -) 500 mg PO DAILY [facility] Last Admin: 05/22/19 09:51 Dose: 500 mg Famotidine (Pepcid -) 20 mg PO BID [facility] Last Admin: 05/22/19 21:29 Dose: 20 mg Furosemide (Lasix -) 20 mg PO Q2D [facility] Last Admin: 05/22/19 09:50 Dose: 20 mg Gabapentin (Neurontin -) 600 mg PO TID [facility] Last Admin: 05/23/19 06:08 Dose: 600 mg Piperacillin Sod/Tazobactam (Sod 3.375 gm/ Dextrose) 50 mls @ 100 mls/hr IVPB Q8H-IV [facility]; Protocol Last Admin: 05/23/19 02:07 Dose: 100 mls/hr Levothyroxine Sodium (Synthroid -) 100 mcg PO DAILY@0700 [facility] Last Admin: 05/23/19 06:08 Dose: 100 mcg Magnesium Oxide (Mag-Ox -) 400 mg PO DAILY [facility] Last Admin: 05/22/19 09:51 Dose: 400 mg Memantine (Namenda -) 5 mg PO BID [facility] Last Admin: 05/22/19 21:29 Dose: 5 mg Metoprolol Succinate (Toprol Xl -) 25 mg PO DAILY [facility] Last Admin: 05/22/19 09:51 Dose: 25 mg Mometasone Furoate (Asmanex 220mcg -) 1 puff IH DAILY [facility] Last Admin: 05/22/19 09:51 Dose: 1 puff Multi-Ingredient Ointment (Zinc Oxide) 1 applic TP TID [facility] Last Admin: 05/23/19 06:08 Dose: 1 applic Multivitamins/Minerals/Vitamin C (Tab-A-Vit -) 1 tab PO DAILY [facility] Last Admin: 05/22/19 09:50 Dose: 1 tab Non-Formulary Medication (Lenalidomide [Revlimid]) 1 tab PO DAILY [facility] Last Admin: 05/22/19 09:51 Dose: 1 tab Potassium Chloride (K-Dur -) 20 meq PO DAILY [facility] Last Admin: 05/22/19 09:51 Dose: 20 meq Pramipexole Dihydrochloride (Mirapex -) 0.25 mg PO TID [facility] Last Admin: 05/23/19 06:08 Dose: 0.25 mg Tramadol HCl (Ultram -) 50 mg PO Q8H PRN PRN Reason: PAIN LEVEL 1-5 Last Admin: 05/22/19 15:48 Dose: 50 mg Warfarin Sodium (Coumadin -) 6 mg PO DAILY@1800 [facility] Last Admin: 05/22/19 17:13 Dose: 6 mg - Objective Vital Signs: Vital Signs Temperature 98.5 F 05/23/19 06:05 Pulse Rate 52 L 05/23/19 06:05 Respiratory Rate 20 05/23/19 06:05 Blood Pressure 112/49 L 05/23/19 06:05 O2 Sat by Pulse Oximetry (%) 100 05/22/19 21:00 Constitutional: Yes: No Distress Eyes: Yes: Conjunctiva Clear Cardiovascular: Yes: Regular Rate and Rhythm, S1, S2 Respiratory: Yes: CTA Bilaterally Gastrointestinal: Yes: Normal Bowel Sounds, Soft. No: Tenderness Extremities: Yes: Other (L LE WARM TO TOUCH; SEROUS DRAINAGE FROM ULCER; R FOOT COOL TO TOUCH) Edema: Yes Labs: CBC, BMP 05/22/19 06:05 05/22/19 06:05 INR, PTT INR 3.62 (0.83-1.09) H 05/22/19 15:20 Assessment/Plan GRAM NEGATIVE BACTEREMIA MORGANELLA INFECTED L LE ULCER DAY #10 ZOSYN SUBSTITUTE PO LEVAQUIN VASCULAR EVALUATION R LE LOCAL WOUND CARE
[2019-05-23] MEDS: traMADol HCL 50 MG TABLET PO PRN ×2 (11:27→17:41)
[2019-05-23] MEDS: metoPROLOL SUCCINATE 25 MG TAB.SR.24H (FP) PO SCH (11:27)
[2019-05-23] MEDS: MAGNESIUM OXIDE 400 MG TABLET (FP) PO SCH (11:28)
[2019-05-23] MEDS: POTASSIUM CHLORIDE TABS 20 MEQ TABLET.ER (FP) PO SCH (11:28)
[2019-05-23] MEDS: FAMOTIDINE 20 MG TABLET PO SCH ×2 (11:28→22:09)
[2019-05-23] MEDS: MULTIVITAMINS (DAILY MVI) TABLET (FP) PO SCH (11:28)
[2019-05-23] MEDS: ASCORBIC ACID 500 MG TABLET (FP) PO SCH (11:28)
[2019-05-23] MEDS: LENALIDOMIDE PO SCH (11:29)
[2019-05-23] MEDS: MEMANTINE HCL 5 MG TABLET (UD) PO SCH ×2 (11:29→22:09)
[2019-05-23] MEDS: MOMETASONE FUROATE 220 MCG/IH INHALER IH SCH (11:33)
[2019-05-23 11:38] LABS: HEMATOCRIT 34.9 % (32.4-45.2); HEMOGLOBIN 11.4 GM/dL (10.7-15.3); MCH 30.4 pg (25.7-33.7); MCHC 32.8 g/dl (32.0-36.0); MEAN CELL VOLUME 92.7 fl (80-96); MEAN PLT VOLUME 10.6 fl (7.5-11.1); PLATELET COUNT 217 K/MM3 (134-434); RBC 3.77 M/mm3 (3.60-5.2); RDW 19.4 % (11.6-15.6); WHITE BLOOD COUNT 9.2 K/mm3 (4.0-10.0)
--- NOTE | 2019-05-23 12:39 | PN ---
Progress Note (short form) - Note Progress Note: PULMONARY Denies shortness of breath, cough or wheezing. No further fevers. Vital Signs Period Temp Pulse Resp BP Sys/Ferrer Pulse Ox Last 24 Hr 98.5 F-100.8 F 52-66 18-20 106-140/42-71 100-100 Gen: NAD at rest Heart: RRR Lung: decreased breath sounds at the bases Abd: soft, nontender Ext: legs wrapped CBC, BMP 05/23/19 10:43 Active Medications Albuterol Sulfate (Ventolin 0.083% Nebulizer Soln -) 1 amp NEB Q6H PRN PRN Reason: SHORT OF BREATH/WHEEZING Amino Acids (Prosource No Carb Liquid Pkt) 30 ml PO DAILY@0800 [facility] Last Admin: 05/23/19 09:15 Dose: Not Given Ascorbic Acid (Vitamin C -) 500 mg PO DAILY [facility] Last Admin: 05/23/19 11:28 Dose: 500 mg Famotidine (Pepcid -) 20 mg PO BID [facility] Last Admin: 05/23/19 11:28 Dose: 20 mg Furosemide (Lasix -) 20 mg PO Q2D [facility] Last Admin: 05/22/19 09:50 Dose: 20 mg Gabapentin (Neurontin -) 600 mg PO TID [facility] Last Admin: 05/23/19 06:08 Dose: 600 mg Levofloxacin (Levaquin -) 250 mg PO DAILY@0600 [facility] Levothyroxine Sodium (Synthroid -) 100 mcg PO DAILY@0700 [facility] Last Admin: 05/23/19 06:08 Dose: 100 mcg Magnesium Oxide (Mag-Ox -) 400 mg PO DAILY [facility] Last Admin: 05/23/19 11:28 Dose: 400 mg Memantine (Namenda -) 5 mg PO BID [facility] Last Admin: 05/23/19 11:29 Dose: 5 mg Metoprolol Succinate (Toprol Xl -) 25 mg PO DAILY [facility] Last Admin: 05/23/19 11:27 Dose: 25 mg Mometasone Furoate (Asmanex 220mcg -) 1 puff IH DAILY [facility] Last Admin: 05/23/19 11:33 Dose: Not Given Multi-Ingredient Ointment (Zinc Oxide) 1 applic TP TID [facility] Last Admin: 05/23/19 06:08 Dose: 1 applic Multivitamins/Minerals/Vitamin C (Tab-A-Vit -) 1 tab PO DAILY [facility] Last Admin: 05/23/19 11:28 Dose: 1 tab Non-Formulary Medication (Lenalidomide [Revlimid]) 1 tab PO DAILY [facility] Last Admin: 05/23/19 11:29 Dose: 1 tab Potassium Chloride (K-Dur -) 20 meq PO DAILY [facility] Last Admin: 05/23/19 11:28 Dose: 20 meq Pramipexole Dihydrochloride (Mirapex -) 0.25 mg PO TID [facility] Last Admin: 05/23/19 06:08 Dose: 0.25 mg Tramadol HCl (Ultram -) 50 mg PO Q8H PRN PRN Reason: PAIN LEVEL 1-5 Last Admin: 05/23/19 11:27 Dose: 50 mg Warfarin Sodium (Coumadin -) 6 mg PO DAILY@1800 [facility] Last Admin: 05/22/19 17:13 Dose: 6 mg A/P Morganella Bacteremia Cellulitis/Infected Ulcers Sepsis Lactic Acidosis Multiple Myeloma Atrial Fibrillation Pulmonary HTN h/o DVT DM Thrombocytopenia Elevated LFTs Anemia - continue antibiotics - wound care - rate control - continue anticoagulation - monitor CBC, LFTs
[2019-05-23 14:08] LABS: BLOOD UREA NITROGEN 12.6 mg/dL (7-18); CHLORIDE 107 mmol/L (98-107); CO2 24 mmol/L (21-32); GLUCOSE,RANDOM 152 mg/dL (74-106); POTASSIUM 4.7 mmol/L (3.5-5.1); SODIUM 142 mmol/L (136-145)
[2019-05-23 14:09] LABS: ALBUMIN 1.4 g/dl (3.4-5.0); ALK PHOS 297 U/L (45-117); BILIRUBIN,DIRECT 0.2 mg/dL (0.0-0.2); BILIRUBIN,TOTAL 0.7 mg/dL (0.2-1); CALCIUM 7.9 mg/dL (8.5-10.1); SGOT/AST 94 U/L (15-37); SGPT/ALT 151 U/L (13-61); TOT PROT 5.1 g/dl (6.4-8.2)
--- NOTE | 2019-05-23 14:09 | PN.GI ---
GI Progress Note Subjective: Pt seen/examined at bedside, no complaints, reports feeling well. Denies abdominal pain, fever/chills. - Objective Vital Signs: Vital Signs Temperature 99.9 F H 05/23/19 13:34 Pulse Rate 59 L 05/23/19 13:34 Respiratory Rate 18 05/23/19 13:34 Blood Pressure 123/56 L 05/23/19 13:34 O2 Sat by Pulse Oximetry (%) 100 05/23/19 09:00 Constitutional: No Distress, Calm Cardiovascular: Yes: WNL, Regular Rate and Rhythm Respiratory: Yes: WNL, Regular, CTA Bilaterally, Diminished ...Palpate: Yes: Other (Abd soft, nt, nd) Labs: CBC, BMP 05/23/19 10:43 INR, PTT INR 3.62 (0.83-1.09) H 05/22/19 15:20 Problem List - Problems (1) Abnormal liver function tests Assessment/Plan: Etiology for elevated LFTs are likely multifactorial in this setting of sepsis vs possible congestive hepatopathy vs medications, now improving. Hepatitis panel negative. -Await LFT results today -Continue to closely monitor LFT trend -Avoid nonessential hepatotoxic medications -MRCP to be considered if persistent alk phos elevation -Further management per primary team Code(s): R94.5 - ABNORMAL RESULTS OF LIVER FUNCTION STUDIES
[2019-05-23 14:56] LABS: PROTHROMBIN TIME (PATIENT) 52.4 SEC (9.7-13.0)
[2019-05-23 15:45] LABS: INR 4.37 (0.83-1.09)
--- NOTE | 2019-05-23 19:47 | PN ---
Progress Note (short form) - Note Progress Note: Patient seen and examined Remains confused Son at bedside - updated Last Vital Signs Temp Pulse Resp BP Pulse Ox 99.9 F H 59 L 18 123/56 L 100 05/23/19 13:34 05/23/19 13:34 05/23/19 13:34 05/23/19 13:34 05/23/19 09:00 HEENT: EBEN, EOM Intact Oropharynx: No thrush, No mucositis Cor: RSR, No murmurs, No gallops Lungs: Clear to P&A Abd: Soft, Normal bowel sounds, No organomegaly Ext:LE edema L>R Skin: stasis LE R.L LE dressed CBC, BMP 05/23/19 10:43 05/23/19 10:43 Current Medications Generic Name Dose Route Start Last Admin Trade Name Freq PRN Reason Stop Dose Admin Albuterol Sulfate 1 amp 05/15/19 17:20 Ventolin 0.083% Nebulizer Soln - NEB Q6H PRN SHORT OF BREATH/WHEEZING Amino Acids 30 ml 05/16/19 08:00 05/23/19 09:15 Prosource No Carb Liquid Pkt PO Not Given DAILY@0800 [facility] Ascorbic Acid 500 mg 05/16/19 10:00 05/23/19 11:28 Vitamin C - PO 500 mg DAILY [facility] Administration Famotidine 20 mg 05/15/19 22:00 05/23/19 11:28 Pepcid - PO 20 mg BID [facility] Administration Furosemide 20 mg 05/16/19 10:00 05/22/19 09:50 Lasix - PO 20 mg Q2D [facility] Administration Gabapentin 600 mg 05/15/19 22:00 05/23/19 16:08 Neurontin - PO Not Given TID [facility] Levofloxacin 250 mg 05/24/19 06:00 Levaquin - PO DAILY@0600 [facility] Levothyroxine Sodium 100 mcg 05/16/19 07:00 05/23/19 06:08 Synthroid - PO 100 mcg DAILY@0700 [facility] Administration Magnesium Oxide 400 mg 05/16/19 10:00 05/23/19 11:28 Mag-Ox - PO 400 mg DAILY [facility] Administration Memantine 5 mg 05/15/19 22:00 05/23/19 11:29 Namenda - PO 5 mg BID [facility] Administration Metoprolol Succinate 25 mg 05/16/19 10:00 05/23/19 11:27 Toprol Xl - PO 25 mg DAILY [facility] Administration Mometasone Furoate 1 puff 05/16/19 10:00 05/23/19 11:33 Asmanex 220mcg - IH Not Given DAILY [facility] Multi-Ingredient Ointment 1 applic 05/15/19 22:00 05/23/19 17:14 Zinc Oxide TP 1 applic TID [facility] Administration Multivitamins/Minerals/Vitamin C 1 tab 05/16/19 10:00 05/23/19 11:28 Tab-A-Vit - PO 1 tab DAILY [facility] Administration Non-Formulary Medication 1 tab 05/22/19 10:00 05/23/19 11:29 Lenalidomide [Revlimid] PO 1 tab DAILY [facility] Administration Potassium Chloride 20 meq 05/17/19 12:00 05/23/19 11:28 K-Dur - PO 20 meq DAILY [facility] Administration Pramipexole Dihydrochloride 0.25 mg 05/15/19 22:00 05/23/19 16:08 Mirapex - PO Not Given TID [facility] Tramadol HCl 50 mg 05/22/19 14:05 05/23/19 17:41 Ultram - PO 50 mg Q8H PRN Administration PAIN LEVEL 1-5 Warfarin Sodium 6 mg 05/20/19 18:00 05/22/19 17:13 Coumadin - PO 6 mg DAILY@1800 [facility] Administration Impression Urosepsis - change to p.o. AB per ID Confusion Myeloma - on revlimid A/C - elevated INR on antibiotics Abnormal LFT's Suggest - monitor INR MRCP per GI recommendation Holding on coumadin
[2019-05-24] MEDS: LEVOTHYROXINE NA 100 MCG TABLET (FP) PO SCH (06:04)
[2019-05-24] MEDS: GABAPENTIN 300 MG CAPSULE PO SCH ×3 (06:04→22:33)
[2019-05-24] MEDS: PRAMIPEXOLE DIHYDROCHLORIDE 0.25 MG TABLET PO SCH ×3 (06:05→22:34)
[2019-05-24] MEDS: ZINC OXIDE 20% TOPICAL OINTMENT 30 GM TUBE TP SCH ×3 (06:05→22:36)
[2019-05-24] MEDS: AMINO ACIDS/PROTEIN HYDROLYS 30 ML LIQUID.PKT PO SCH (08:39)
[2019-05-24] MEDS: traMADol HCL 50 MG TABLET PO PRN (08:39)
--- NOTE | 2019-05-24 10:17 | PN ---
Progress Note, Physician Chief Complaint: AMS Pneumonia History of Present Illness: Previous notes and events reviewed awake and alert NAD R foot coolness, RLE arterial doppler ordered and re-consulted Vascular denies complaints of chest pain or palpitation INR 4.37~Coumadin on hold, pending repeat lab this AM LFTs showing increase in Alk Phos fever spike 100.8F yesterday, repeat BC pending no leukocytosis afebrile - Current Medication List Current Medications: Active Medications Albuterol Sulfate (Ventolin 0.083% Nebulizer Soln -) 1 amp NEB Q6H PRN PRN Reason: SHORT OF BREATH/WHEEZING Amino Acids (Prosource No Carb Liquid Pkt) 30 ml PO DAILY@0800 [facility] Last Admin: 05/24/19 08:39 Dose: 30 ml Ascorbic Acid (Vitamin C -) 500 mg PO DAILY [facility] Last Admin: 05/23/19 11:28 Dose: 500 mg Famotidine (Pepcid -) 20 mg PO BID [facility] Last Admin: 05/23/19 22:09 Dose: 20 mg Furosemide (Lasix -) 20 mg PO Q2D [facility] Last Admin: 05/22/19 09:50 Dose: 20 mg Gabapentin (Neurontin -) 600 mg PO TID [facility] Last Admin: 05/24/19 06:04 Dose: 600 mg Levofloxacin (Levaquin -) 250 mg PO DAILY@0600 [facility] Last Admin: 05/24/19 06:04 Dose: 250 mg Levothyroxine Sodium (Synthroid -) 100 mcg PO DAILY@0700 [facility] Last Admin: 05/24/19 06:04 Dose: 100 mcg Magnesium Oxide (Mag-Ox -) 400 mg PO DAILY [facility] Last Admin: 05/23/19 11:28 Dose: 400 mg Memantine (Namenda -) 5 mg PO BID [facility] Last Admin: 05/23/19 22:09 Dose: 5 mg Metoprolol Succinate (Toprol Xl -) 25 mg PO DAILY [facility] Last Admin: 05/23/19 11:27 Dose: 25 mg Mometasone Furoate (Asmanex 220mcg -) 1 puff IH DAILY [facility] Last Admin: 05/23/19 11:33 Dose: Not Given Multi-Ingredient Ointment (Zinc Oxide) 1 applic TP TID [facility] Last Admin: 05/24/19 06:05 Dose: 1 applic Multivitamins/Minerals/Vitamin C (Tab-A-Vit -) 1 tab PO DAILY [facility] Last Admin: 05/23/19 11:28 Dose: 1 tab Non-Formulary Medication (Lenalidomide [Revlimid]) 1 tab PO DAILY [facility] Last Admin: 05/23/19 11:29 Dose: 1 tab Potassium Chloride (K-Dur -) 20 meq PO DAILY [facility] Last Admin: 05/23/19 11:28 Dose: 20 meq Pramipexole Dihydrochloride (Mirapex -) 0.25 mg PO TID [facility] Last Admin: 05/24/19 06:05 Dose: 0.25 mg Tramadol HCl (Ultram -) 50 mg PO Q8H PRN PRN Reason: PAIN LEVEL 1-5 Last Admin: 05/24/19 08:39 Dose: 50 mg Warfarin Sodium (Coumadin -) 6 mg PO DAILY@1800 [facility] Last Admin: 05/22/19 17:13 Dose: 6 mg - Objective Vital Signs: Vital Signs Temperature 98.2 F 05/24/19 06:11 Pulse Rate 62 05/24/19 06:11 Respiratory Rate 18 05/24/19 08:51 Blood Pressure 98/46 L 05/24/19 06:11 O2 Sat by Pulse Oximetry (%) 100 05/24/19 08:51 Constitutional: Yes: No Distress, Calm Eyes: Yes: Conjunctiva Clear HENT: Yes: Atraumatic Cardiovascular: Yes: Regular Rate and Rhythm Respiratory: Yes: Regular, Diminished, On Nasal O2 Gastrointestinal: Yes: Normal Bowel Sounds, Soft Genitourinary: Yes: [place] Present Musculoskeletal: Yes: Muscle Weakness Extremities: Yes: Cool (R foot) Edema: Yes (R foot 1+) Integumentary: Yes: Other (Venous stasis ulcer b/l lower extremity) Wound/Incision: Yes: Dressing Dry and Intact Neurological: Yes: Alert, Oriented, Confusion (periods of confusion) Psychiatric: Yes: Alert, Oriented Labs: CBC, BMP 05/23/19 10:43 05/23/19 10:43 INR, PTT INR 4.37 (0.83-1.09) H* 05/23/19 13:46 Microbiology 05/14/19 21:45 Blood - Peripheral Venous Blood Culture - Final NO GROWTH AFTER 5 DAYS INCUBATION 05/14/19 21:45 Blood - Peripheral Venous Blood Culture - Final Morganella Morganii 05/15/19 01:40 Urine - Urine - Catheterized Urine Culture - Final Lactose Fermenting Neg Bacilli Problem List - Problems (1) Altered mental state Assessment/Plan: -Head CT scan shows no CT evidence of acute intracranial pathology -Neuro checks q4h -possibly secondary to infection -improved Code(s): R41.82 - ALTERED MENTAL STATUS, UNSPECIFIED Qualifiers: Altered mental status type: disorientation Qualified Code(s): R41.0 - Disorientation, unspecified (2) PNA (pneumonia) Assessment/Plan: -CXR shows cardiomegaly with mild pulmonary venous congestion vs chronic interstitial lung disease, interval mild atelectatic changes vs infiltrates in left lung base -Pulmonary consult -BC positive -no leukocytosis -afebrile -Zosyn completed, switched to PO Levaquin -LA 2.8~1.2 -bronchodilators -keep SpO2 >90% -O2 via NC -Influenza neg -fever spike of 100.8F axillary yesterday, repeat BC pending Code(s): J18.9 - PNEUMONIA, UNSPECIFIED ORGANISM Qualifiers: Pneumonia type: due to unspecified organism Laterality: right Lung location: lower lobe of lung Qualified Code(s): J18.9 - Pneumonia, unspecified organism (3) Afib Assessment/Plan: -Coumadin HS on hold -INR 4.37 -monitor INR daily -therapeutic goal 2-3 Code(s): I48.91 - UNSPECIFIED ATRIAL FIBRILLATION (4) CHF (congestive heart failure) Assessment/Plan: -Furosemide q48h -daily weights -1L fluid restriction -strict I&O -low Na diet Code(s): I50.9 - HEART FAILURE, UNSPECIFIED (5) Hypothyroidism Assessment/Plan: -Levothyroxine Code(s): E03.9 - HYPOTHYROIDISM, UNSPECIFIED (6) Multiple myeloma Assessment/Plan: -Oncology consult -Revlimid Code(s): C90.00 - MULTIPLE MYELOMA NOT HAVING ACHIEVED REMISSION Qualifiers: Multiple myeloma remission status: unspecified Qualified Code(s): C90.00 - Multiple myeloma not having achieved remission (7) Supratherapeutic INR Assessment/Plan: -INR 4.37 -monitor INR daily -therapeutic goal 2-3 -Coumadin on hold -if repeat INR shows uptrend will order Vitamin K x 1 dose Code(s): R79.1 - ABNORMAL COAGULATION PROFILE (8) Venous stasis ulcer Assessment/Plan: -Vascular on board -daily dressing change -RLE treat with calcium alginare and compression dressing -LLE treat with xeroform and compression dressing -offloading -coolness noted to R foot~reconsulted Vascular Dr Zaman and RLE Arterial Doppler ordered Code(s): I83.009 - VARICOSE VEINS OF UNSP LOWER EXTREMITY W ULCER OF UNSP SITE; L97.909 - NON-PRS CHRONIC ULC UNSP PRT OF UNSP LOW LEG W UNSP SEVERITY (9) Transaminitis Assessment/Plan: -AST 91, ALT 154, Alk Phos 297 -Abd US shows borderline hepatic enlargement -GI on board -Hepatitis profile pending -GI recommending if Alk Phos continue to rise will need MRCP Code(s): R74.0 - NONSPEC ELEV OF LEVELS OF TRANSAMNS & LACTIC ACID DEHYDRGNSE Assessment/Plan see problem list
[2019-05-24] MEDS ORDERED: PT OWN MED DRAWER 7, Y5N ONE ×3 (10:22→19:47)
--- NOTE | 2019-05-24 10:24 | PN ---
Progress Note (short form) - Note Progress Note: PULMONARY Denies shortness of breath, cough or wheezing. No fevers. Vital Signs Period Temp Pulse Resp BP Sys/Ferrer Pulse Ox Last 24 Hr 97.2 F-100.8 F 59-88 18-18 98-140/46-71 100-100 Gen: NAD at rest Heart: RRR Lung: decreased breath sounds at the bases Abd: soft, nontender Ext: legs wrapped CBC, BMP 05/23/19 10:43 05/23/19 10:43 Active Medications Albuterol Sulfate (Ventolin 0.083% Nebulizer Soln -) 1 amp NEB Q6H PRN PRN Reason: SHORT OF BREATH/WHEEZING Amino Acids (Prosource No Carb Liquid Pkt) 30 ml PO DAILY@0800 COUNTS [facility]CLUDE 234 BEDS AT THE [facility] Last Admin: 05/24/19 08:39 Dose: 30 ml Ascorbic Acid (Vitamin C -) 500 mg PO DAILY COUNTS INCLUDE 234 BEDS AT THE [facility] Last Admin: 05/23/19 11:28 Dose: 500 mg Famotidine (Pepcid -) 20 mg PO BID COUNTS INCLUDE 234 BEDS AT THE [facility] Last Admin: 05/23/19 22:09 Dose: 20 mg Furosemide (Lasix -) 20 mg PO Q2D COUNTS INCLUDE 234 BEDS AT THE [facility] Last Admin: 05/22/19 09:50 Dose: 20 mg Gabapentin (Neurontin -) 600 mg PO TID COUNTS INCLUDE 234 BEDS AT THE [facility] Last Admin: 05/24/19 06:04 Dose: 600 mg Levofloxacin (Levaquin -) 250 mg PO DAILY@0600 COUNTS INCLUDE 234 BEDS AT THE [facility] Last Admin: 05/24/19 06:04 Dose: 250 mg Levothyroxine Sodium (Synthroid -) 100 mcg PO DAILY@0700 COUNTS INCLUDE 234 BEDS AT THE [facility] Last Admin: 05/24/19 06:04 Dose: 100 mcg Magnesium Oxide (Mag-Ox -) 400 mg PO DAILY COUNTS INCLUDE 234 BEDS AT THE [facility] Last Admin: 05/23/19 11:28 Dose: 400 mg Memantine (Namenda -) 5 mg PO BID COUNTS INCLUDE 234 BEDS AT THE [facility] Last Admin: 05/23/19 22:09 Dose: 5 mg Metoprolol Succinate (Toprol Xl -) 25 mg PO DAILY COUNTS INCLUDE 234 BEDS AT THE [facility] Last Admin: 05/23/19 11:27 Dose: 25 mg Mometasone Furoate (Asmanex 220mcg -) 1 puff IH DAILY COUNTS INCLUDE 234 BEDS AT THE [facility] Last Admin: 05/23/19 11:33 Dose: Not Given Multi-Ingredient Ointment (Zinc Oxide) 1 applic TP TID COUNTS INCLUDE 234 BEDS AT THE [facility] Last Admin: 05/24/19 06:05 Dose: 1 applic Multivitamins/Minerals/Vitamin C (Tab-A-Vit -) 1 tab PO DAILY COUNTS INCLUDE 234 BEDS AT THE [facility] Last Admin: 05/23/19 11:28 Dose: 1 tab Non-Formulary Medication (Lenalidomide [Revlimid]) 1 tab PO DAILY COUNTS INCLUDE 234 BEDS AT THE [facility] Last Admin: 05/23/19 11:29 Dose: 1 tab Potassium Chloride (K-Dur -) 20 meq PO DAILY COUNTS INCLUDE 234 BEDS AT THE [facility] Last Admin: 05/23/19 11:28 Dose: 20 meq Pramipexole Dihydrochloride (Mirapex -) 0.25 mg PO TID COUNTS INCLUDE 234 BEDS AT THE [facility] Last Admin: 05/24/19 06:05 Dose: 0.25 mg Tramadol HCl (Ultram -) 50 mg PO Q8H PRN PRN Reason: PAIN LEVEL 1-5 Last Admin: 05/24/19 08:39 Dose: 50 mg Warfarin Sodium (Coumadin -) 6 mg PO DAILY@1800 COUNTS INCLUDE 234 BEDS AT THE [facility] Last Admin: 05/22/19 17:13 Dose: 6 mg A/P Morganella Bacteremia Cellulitis/Infected Ulcers Sepsis Lactic Acidosis Multiple Myeloma Atrial Fibrillation Pulmonary HTN h/o DVT DM Thrombocytopenia improved Elevated LFTs improving Anemia - continue antibiotics - wound care - rate control - continue anticoagulation
[2019-05-24] MEDS: MULTIVITAMINS (DAILY MVI) TABLET (FP) PO SCH (10:28)
[2019-05-24] MEDS: FAMOTIDINE 20 MG TABLET PO SCH ×2 (10:28→22:34)
[2019-05-24] MEDS: metoPROLOL SUCCINATE 25 MG TAB.SR.24H (FP) PO SCH ×2 (10:28→11:07)
[2019-05-24] MEDS: MAGNESIUM OXIDE 400 MG TABLET (FP) PO SCH (10:29)
[2019-05-24] MEDS: MEMANTINE HCL 5 MG TABLET (UD) PO SCH ×2 (10:30→22:34)
[2019-05-24] MEDS: ASCORBIC ACID 500 MG TABLET (FP) PO SCH (10:30)
[2019-05-24] MEDS: FUROSEMIDE 20 MG TABLET (FP) PO SCH ×2 (10:30→11:07)
[2019-05-24] MEDS: POTASSIUM CHLORIDE TABS 20 MEQ TABLET.ER (FP) PO SCH (10:30)
[2019-05-24] MEDS: LENALIDOMIDE PO SCH (10:31)
[2019-05-24] MEDS ORDERED: ACETAMINOPHEN 325 MG TABLET (FP) PO PRN (10:41)
[2019-05-24] MEDS: MOMETASONE FUROATE 220 MCG/IH INHALER IH SCH (11:06)
--- NOTE | 2019-05-24 11:30 | PN ---
Progress Note (short form) - Note Progress Note: VAscular Surgery Pt seen and examined. Right foot cool to touch. Pt has strong dopplerable DP pulse in right foot. Start alginate to all venous stasis ulcers with diana for compression. NO need for any intervention at this time Anhtony Zaman DO
[2019-05-24 16:26] LABS: HEMATOCRIT 34.2 % (32.4-45.2); HEMOGLOBIN 11.2 GM/dL (10.7-15.3); MCH 30.5 pg (25.7-33.7); MCHC 32.7 g/dl (32.0-36.0); MEAN CELL VOLUME 93.3 fl (80-96); MEAN PLT VOLUME 10.8 fl (7.5-11.1); PLATELET COUNT 233 K/MM3 (134-434); RBC 3.66 M/mm3 (3.60-5.2); RDW 19.8 % (11.6-15.6); WHITE BLOOD COUNT 9.6 K/mm3 (4.0-10.0)
[2019-05-24 16:38] LABS: ALBUMIN 1.5 g/dl (3.4-5.0); BILIRUBIN,TOTAL 0.5 mg/dL (0.2-1); BLOOD UREA NITROGEN 14.2 mg/dL (7-18); CALCIUM 8.1 mg/dL (8.5-10.1); CREATININE 1.1 mg/dL (0.55-1.3); POTASSIUM 3.6 mmol/L (3.5-5.1); TOT PROT 5.2 g/dl (6.4-8.2)
[2019-05-24 16:40] LABS: INR 3.07 (0.83-1.09); PROTHROMBIN TIME (PATIENT) 36.6 SEC (9.7-13.0)
--- NOTE | 2019-05-24 20:27 | PN.GI ---
GI Progress Note Subjective: No acute events Denies abdominal pain - Objective Vital Signs: Vital Signs Temperature 98.3 F 05/24/19 14:35 Pulse Rate 61 05/24/19 14:35 Respiratory Rate 18 05/24/19 14:35 Blood Pressure 121/55 L 05/24/19 14:35 O2 Sat by Pulse Oximetry (%) 100 05/24/19 08:51 Constitutional: Calm Eyes: No: Sclera Icterus Cardiovascular: Yes: Regular Rate and Rhythm Respiratory: Yes: Diminished (at bases bilaterally with poor insp effort) Gastrointestinal Inspection: No: Distention ...Auscultate: Yes: Normoactive Bowel Sounds ...Palpate: No: Hepatomegaly, Splenomegaly, Tenderness Neurological: Yes: Alert (somnolent) Labs: CBC, BMP 05/24/19 15:40 05/24/19 15:40 INR, PTT INR 3.07 (0.83-1.09) H 05/24/19 15:40 Problem List - Problems (1) Abnormal liver function tests Assessment/Plan: Continued elevation of liver chemistries. Asymptomatic I again discontinued acetaminophen. Avoid other hepatotoxic agents Ordered MRCP to further evaluate biliary tract Monitor LFTs Code(s): R94.5 - ABNORMAL RESULTS OF LIVER FUNCTION STUDIES
[2019-05-25] MEDS: traMADol HCL 50 MG TABLET PO PRN (00:32)
[2019-05-25] MEDS: SODIUM CHLORIDE 1,000 ML IV SCH ×2 (02:14→17:12)
[2019-05-25] MEDS: GABAPENTIN 300 MG CAPSULE PO SCH ×3 (06:16→22:14)
[2019-05-25] MEDS: PRAMIPEXOLE DIHYDROCHLORIDE 0.25 MG TABLET PO SCH ×3 (06:16→22:18)
[2019-05-25] MEDS: LEVOTHYROXINE NA 100 MCG TABLET (FP) PO SCH (06:16)
[2019-05-25] MEDS: ZINC OXIDE 20% TOPICAL OINTMENT 30 GM TUBE TP SCH ×3 (06:17→22:16)
[2019-05-25 08:57] LABS: HEMATOCRIT 29.2 % (32.4-45.2); HEMOGLOBIN 9.7 GM/dL (10.7-15.3); MCH 30.8 pg (25.7-33.7); MCHC 33.3 g/dl (32.0-36.0); MEAN CELL VOLUME 92.4 fl (80-96); MEAN PLT VOLUME 10.5 fl (7.5-11.1); PLATELET COUNT 210 K/MM3 (134-434); RBC 3.16 M/mm3 (3.60-5.2); RDW 19.1 % (11.6-15.6); WHITE BLOOD COUNT 10.7 K/mm3 (4.0-10.0)
[2019-05-25 09:20] LABS: INR 2.34 (0.83-1.09); PROTHROMBIN TIME (PATIENT) 27.9 SEC (9.7-13.0)
[2019-05-25 09:31] LABS: ALBUMIN 1.3 g/dl (3.4-5.0); BILIRUBIN,TOTAL 0.6 mg/dL (0.2-1); BLOOD UREA NITROGEN 11.1 mg/dL (7-18); CALCIUM 7.3 mg/dL (8.5-10.1); CREATININE 0.9 mg/dL (0.55-1.3); POTASSIUM 3.2 mmol/L (3.5-5.1); TOT PROT 4.2 g/dl (6.4-8.2)
[2019-05-25] MEDS ORDERED: POTASSIUM CHLORIDE ORAL LIQUID 20 MEQ/15 ML PO ONE (09:51)
--- NOTE | 2019-05-25 10:04 | PN ---
Progress Note, Physician Chief Complaint: AMS Pneumonia History of Present Illness: Previous notes and events reviewed awake and alert NAD LLE noted with erythema and edema denies complaints of chest pain or palpitation LFTs showing downtrend in Alk Phos, MRCP ordered no leukocytosis afebrile repeat BC negative - Current Medication List Current Medications: Active Medications Albuterol Sulfate (Ventolin 0.083% Nebulizer Soln -) 1 amp NEB Q6H PRN PRN Reason: SHORT OF BREATH/WHEEZING Amino Acids (Prosource No Carb Liquid Pkt) 30 ml PO DAILY@0800 [facility] Last Admin: 05/24/19 08:39 Dose: 30 ml Ascorbic Acid (Vitamin C -) 500 mg PO DAILY [facility] Last Admin: 05/24/19 10:30 Dose: 500 mg Famotidine (Pepcid -) 20 mg PO BID [facility] Last Admin: 05/24/19 22:34 Dose: 20 mg Furosemide (Lasix -) 20 mg PO Q2D [facility] Last Admin: 05/24/19 11:07 Dose: Not Given Gabapentin (Neurontin -) 600 mg PO TID [facility] Last Admin: 05/25/19 06:16 Dose: 600 mg Sodium Chloride (Normal Saline -) 1,000 mls @ 75 mls/hr IV ASDIR [facility] Last Admin: 05/25/19 02:14 Dose: 75 mls/hr Levofloxacin (Levaquin -) 250 mg PO DAILY@0600 [facility] Last Admin: 05/25/19 06:16 Dose: 250 mg Levothyroxine Sodium (Synthroid -) 100 mcg PO DAILY@0700 [facility] Last Admin: 05/25/19 06:16 Dose: 100 mcg Magnesium Oxide (Mag-Ox -) 400 mg PO DAILY [facility] Last Admin: 05/24/19 10:29 Dose: 400 mg Memantine (Namenda -) 5 mg PO BID [facility] Last Admin: 05/24/19 22:34 Dose: 5 mg Metoprolol Succinate (Toprol Xl -) 25 mg PO DAILY [facility] Last Admin: 05/24/19 11:07 Dose: Not Given Mometasone Furoate (Asmanex 220mcg -) 1 puff IH DAILY [facility] Last Admin: 05/24/19 11:06 Dose: Not Given Multi-Ingredient Ointment (Zinc Oxide) 1 applic TP TID [facility] Last Admin: 05/25/19 06:17 Dose: 1 applic Multivitamins/Minerals/Vitamin C (Tab-A-Vit -) 1 tab PO DAILY [facility] Last Admin: 05/24/19 10:28 Dose: 1 tab Non-Formulary Medication (Lenalidomide [Revlimid]) 1 tab PO DAILY [facility] Last Admin: 05/24/19 10:31 Dose: 1 tab Potassium Chloride (K-Dur -) 20 meq PO DAILY [facility] Last Admin: 05/24/19 10:30 Dose: 20 meq Potassium Chloride (Potassium Chloride Oral Liquid) 40 meq PO ONCE ONE Stop: 05/25/19 09:52 Pramipexole Dihydrochloride (Mirapex -) 0.25 mg PO TID [facility] Last Admin: 05/25/19 06:16 Dose: 0.25 mg Tramadol HCl (Ultram -) 50 mg PO Q8H PRN PRN Reason: PAIN LEVEL 1-5 Last Admin: 05/25/19 00:32 Dose: 50 mg Warfarin Sodium (Coumadin -) 6 mg PO DAILY@1800 [facility] Last Admin: 05/22/19 17:13 Dose: 6 mg - Objective Vital Signs: Vital Signs Temperature 98.7 F 05/25/19 06:00 Pulse Rate 71 05/25/19 06:00 Respiratory Rate 18 05/25/19 06:00 Blood Pressure 101/41 L 05/25/19 06:00 O2 Sat by Pulse Oximetry (%) 100 05/24/19 21:00 Constitutional: Yes: No Distress, Calm Eyes: Yes: Conjunctiva Clear HENT: Yes: Atraumatic Cardiovascular: Yes: Regular Rate and Rhythm Respiratory: Yes: Regular, Diminished, On Nasal O2 Gastrointestinal: Yes: Normal Bowel Sounds, Soft Genitourinary: Yes: [place] Present Musculoskeletal: Yes: Muscle Weakness Extremities: Yes: Erythema (LLE) Edema: Yes (LLE) Wound/Incision: Yes: Dressing Dry and Intact Neurological: Yes: Alert, Oriented, Confusion (periods of confusion) Psychiatric: Yes: Alert, Oriented Labs: CBC, BMP 05/25/19 08:00 05/25/19 08:00 INR, PTT INR 2.34 (0.83-1.09) H 05/25/19 08:00 Microbiology 05/23/19 16:45 Blood - Peripheral Venous Blood Culture - Preliminary NO GROWTH OBTAINED AFTER 24 HOURS, INCUBATION TO CONTINUE FOR 4 DAYS. 05/23/19 16:40 Blood - Peripheral Venous Blood Culture - Preliminary NO GROWTH OBTAINED AFTER 24 HOURS, INCUBATION TO CONTINUE FOR 4 DAYS. 05/14/19 21:45 Blood - Peripheral Venous Blood Culture - Final NO GROWTH AFTER 5 DAYS INCUBATION 05/14/19 21:45 Blood - Peripheral Venous Blood Culture - Final Morganella Morganii 05/15/19 01:40 Urine - Urine - Catheterized Urine Culture - Final Lactose Fermenting Neg Bacilli Problem List - Problems (1) Altered mental state Assessment/Plan: -Head CT scan shows no CT evidence of acute intracranial pathology -Neuro checks q4h -possibly secondary to infection -improved Code(s): R41.82 - ALTERED MENTAL STATUS, UNSPECIFIED Qualifiers: Altered mental status type: disorientation Qualified Code(s): R41.0 - Disorientation, unspecified (2) PNA (pneumonia) Assessment/Plan: -CXR shows cardiomegaly with mild pulmonary venous congestion vs chronic interstitial lung disease, interval mild atelectatic changes vs infiltrates in left lung base -Pulmonary consult -BC positive -no leukocytosis -afebrile -Zosyn completed, switched to PO Levaquin -LA 2.8~1.2 -bronchodilators -keep SpO2 >90% -O2 via NC -Influenza neg -repeat BC neg Code(s): J18.9 - PNEUMONIA, UNSPECIFIED ORGANISM Qualifiers: Pneumonia type: due to unspecified organism Laterality: right Lung location: lower lobe of lung Qualified Code(s): J18.9 - Pneumonia, unspecified organism (3) Afib Assessment/Plan: -Coumadin HS resumed -INR 2.34 -monitor INR daily -therapeutic goal 2-3 Code(s): I48.91 - UNSPECIFIED ATRIAL FIBRILLATION (4) CHF (congestive heart failure) Assessment/Plan: -Furosemide q48h -daily weights -1L fluid restriction -strict I&O -low Na diet Code(s): I50.9 - HEART FAILURE, UNSPECIFIED (5) Hypothyroidism Assessment/Plan: -Levothyroxine Code(s): E03.9 - HYPOTHYROIDISM, UNSPECIFIED (6) Multiple myeloma Assessment/Plan: -Oncology consult -Revlimid Code(s): C90.00 - MULTIPLE MYELOMA NOT HAVING ACHIEVED REMISSION Qualifiers: Multiple myeloma remission status: unspecified Qualified Code(s): C90.00 - Multiple myeloma not having achieved remission (7) Supratherapeutic INR Assessment/Plan: -resolved -INR 2.34 -monitor INR daily -therapeutic goal 2-3 -Coumadin resumed Code(s): R79.1 - ABNORMAL COAGULATION PROFILE (8) Venous stasis ulcer Assessment/Plan: -Vascular on board -daily dressing change -RLE and LLE treat with calcium alginate and compression dressing -offloading -coolness noted to R foot, evaluated by Vascular no intervention at this time Code(s): I83.009 - VARICOSE VEINS OF UNSP LOWER EXTREMITY W ULCER OF UNSP SITE; L97.909 - NON-PRS CHRONIC ULC UNSP PRT OF UNSP LOW LEG W UNSP SEVERITY (9) Transaminitis Assessment/Plan: -AST 79, ALT 111, Alk Phos 202 -Abd US shows borderline hepatic enlargement -GI on board -Hepatitis profile pending -MRCP ordered Code(s): R74.0 - NONSPEC ELEV OF LEVELS OF TRANSAMNS & LACTIC ACID DEHYDRGNSE Assessment/Plan see problem list
[2019-05-25] MEDS: MAGNESIUM OXIDE 400 MG TABLET (FP) PO SCH (10:05)
[2019-05-25] MEDS: MOMETASONE FUROATE 220 MCG/IH INHALER IH SCH (10:06)
[2019-05-25] MEDS: AMINO ACIDS/PROTEIN HYDROLYS 30 ML LIQUID.PKT PO SCH (10:06)
[2019-05-25] MEDS: POTASSIUM CHLORIDE TABS 20 MEQ TABLET.ER (FP) PO SCH (10:06)
[2019-05-25] MEDS: MEMANTINE HCL 5 MG TABLET (UD) PO SCH ×2 (10:06→22:14)
[2019-05-25] MEDS: ASCORBIC ACID 500 MG TABLET (FP) PO SCH (10:06)
[2019-05-25] MEDS: FAMOTIDINE 20 MG TABLET PO SCH ×2 (10:06→22:15)
[2019-05-25] MEDS: metoPROLOL SUCCINATE 25 MG TAB.SR.24H (FP) PO SCH (10:06)
[2019-05-25] MEDS: MULTIVITAMINS (DAILY MVI) TABLET (FP) PO SCH (10:06)
[2019-05-25] MEDS: LENALIDOMIDE PO SCH (11:16)
[2019-05-25] MEDS: WARFARIN NA 3 MG TABLET PO SCH (17:13)
[2019-05-26] MEDS: GABAPENTIN 300 MG CAPSULE PO SCH ×3 (06:47→21:44)
[2019-05-26] MEDS: PRAMIPEXOLE DIHYDROCHLORIDE 0.25 MG TABLET PO SCH ×3 (06:48→21:44)
[2019-05-26] MEDS: ZINC OXIDE 20% TOPICAL OINTMENT 30 GM TUBE TP SCH ×3 (07:03→21:45)
[2019-05-26] MEDS: LEVOTHYROXINE NA 100 MCG TABLET (FP) PO SCH (07:06)
[2019-05-26] MEDS: SODIUM CHLORIDE 1,000 ML IV SCH (07:12)
[2019-05-26 07:28] LABS: HEMATOCRIT 28.5 % (32.4-45.2); HEMOGLOBIN 9.6 GM/dL (10.7-15.3); MCHC 33.6 g/dl (32.0-36.0); MEAN PLT VOLUME 10.4 fl (7.5-11.1); PLATELET COUNT 226 K/MM3 (134-434); RBC 3.09 M/mm3 (3.60-5.2); RDW 19.1 % (11.6-15.6); WHITE BLOOD COUNT 10.8 K/mm3 (4.0-10.0)
[2019-05-26 07:43] LABS: INR 1.75 (0.83-1.09); PROTHROMBIN TIME (PATIENT) 20.8 SEC (9.7-13.0)
[2019-05-26 07:57] LABS: ALBUMIN 1.4 g/dl (3.4-5.0); BILIRUBIN,TOTAL 0.5 mg/dL (0.2-1); BLOOD UREA NITROGEN 13.3 mg/dL (7-18); CALCIUM 7.7 mg/dL (8.5-10.1); CREATININE 0.9 mg/dL (0.55-1.3); TOT PROT 4.5 g/dl (6.4-8.2)
[2019-05-26] MEDS ORDERED: PT OWN MED DRAWER 7, Y5N ONE ×2 (08:51→11:07)
[2019-05-26] MEDS: MEMANTINE HCL 5 MG TABLET (UD) PO SCH ×2 (09:26→21:44)
[2019-05-26] MEDS: ASCORBIC ACID 500 MG TABLET (FP) PO SCH (09:26)
[2019-05-26] MEDS: MULTIVITAMINS (DAILY MVI) TABLET (FP) PO SCH (09:26)
[2019-05-26] MEDS: FUROSEMIDE 20 MG TABLET (FP) PO SCH (09:27)
[2019-05-26] MEDS: POTASSIUM CHLORIDE TABS 20 MEQ TABLET.ER (FP) PO SCH (09:27)
[2019-05-26] MEDS: metoPROLOL SUCCINATE 25 MG TAB.SR.24H (FP) PO SCH (09:27)
[2019-05-26] MEDS: FAMOTIDINE 20 MG TABLET PO SCH ×2 (09:28→21:44)
--- NOTE | 2019-05-26 09:34 | PN ---
Progress Note, Physician Chief Complaint: AMS Pneumonia History of Present Illness: Previous notes and events reviewed awake and alert NAD denies complaints of chest pain or palpitation LLE edema, erythema, warm to touch leukocytosis afebrile repeat BC negative INR 1.75 - Current Medication List Current Medications: Active Medications Albuterol Sulfate (Ventolin 0.083% Nebulizer Soln -) 1 amp NEB Q6H PRN PRN Reason: SHORT OF BREATH/WHEEZING Amino Acids (Prosource No Carb Liquid Pkt) 30 ml PO DAILY@0800 [facility] Last Admin: 05/25/19 10:06 Dose: 30 ml Ascorbic Acid (Vitamin C -) 500 mg PO DAILY [facility] Last Admin: 05/26/19 09:26 Dose: 500 mg Famotidine (Pepcid -) 20 mg PO BID [facility] Last Admin: 05/26/19 09:28 Dose: 20 mg Furosemide (Lasix -) 20 mg PO Q2D [facility] Last Admin: 05/26/19 09:27 Dose: 20 mg Gabapentin (Neurontin -) 600 mg PO TID [facility] Last Admin: 05/26/19 06:47 Dose: 600 mg Sodium Chloride (Normal Saline -) 1,000 mls @ 75 mls/hr IV ASDIR [facility] Last Admin: 05/26/19 07:12 Dose: 75 mls/hr Levofloxacin (Levaquin -) 250 mg PO DAILY@0600 [facility] Last Admin: 05/26/19 06:47 Dose: 250 mg Levothyroxine Sodium (Synthroid -) 100 mcg PO DAILY@0700 [facility] Last Admin: 05/26/19 07:06 Dose: 100 mcg Magnesium Oxide (Mag-Ox -) 400 mg PO DAILY [facility] Last Admin: 05/25/19 10:05 Dose: 400 mg Memantine (Namenda -) 5 mg PO BID [facility] Last Admin: 05/26/19 09:26 Dose: 5 mg Metoprolol Succinate (Toprol Xl -) 25 mg PO DAILY [facility] Last Admin: 05/26/19 09:27 Dose: 25 mg Mometasone Furoate (Asmanex 220mcg -) 1 puff IH DAILY [facility] Last Admin: 05/25/19 10:06 Dose: Not Given Multi-Ingredient Ointment (Zinc Oxide) 1 applic TP TID [facility] Last Admin: 05/26/19 07:03 Dose: 1 applic Multivitamins/Minerals/Vitamin C (Tab-A-Vit -) 1 tab PO DAILY [facility] Last Admin: 05/26/19 09:26 Dose: 1 tab Non-Formulary Medication (Lenalidomide [Revlimid]) 1 tab PO DAILY [facility] Last Admin: 05/25/19 11:16 Dose: 1 tab Potassium Chloride (K-Dur -) 20 meq PO DAILY [facility] Last Admin: 05/26/19 09:27 Dose: 20 meq Pramipexole Dihydrochloride (Mirapex -) 0.25 mg PO TID [facility] Last Admin: 05/26/19 06:48 Dose: 0.25 mg Warfarin Sodium (Coumadin -) 6 mg PO DAILY@1800 [facility] Last Admin: 05/25/19 17:13 Dose: 6 mg - Objective Vital Signs: Vital Signs Temperature 98.2 F 05/26/19 06:07 Pulse Rate 71 05/26/19 06:07 Respiratory Rate 20 05/26/19 08:40 Blood Pressure 116/51 L 05/26/19 06:07 O2 Sat by Pulse Oximetry (%) 100 05/26/19 08:40 Constitutional: Yes: No Distress, Calm Eyes: Yes: Conjunctiva Clear HENT: Yes: Atraumatic Cardiovascular: Yes: Regular Rate and Rhythm Respiratory: Yes: Regular, Diminished, On Nasal O2 Gastrointestinal: Yes: Normal Bowel Sounds, Soft Genitourinary: Yes: [place] Present Musculoskeletal: Yes: Muscle Weakness Extremities: Yes: Erythema (LLE, warm to touch) Edema: Yes Edema: LLE: 1+ Wound/Incision: Yes: Dressing Dry and Intact (b/l LE extremity) Neurological: Yes: Alert, Oriented Psychiatric: Yes: Alert, Oriented Labs: CBC, BMP 05/26/19 06:20 05/26/19 06:20 INR, PTT INR 1.75 (0.83-1.09) H 05/26/19 06:20 Microbiology 05/23/19 16:45 Blood - Peripheral Venous Blood Culture - Preliminary NO GROWTH OBTAINED AFTER 48 HOURS, INCUBATION TO CONTINUE FOR 3 DAYS. 05/23/19 16:40 Blood - Peripheral Venous Blood Culture - Preliminary NO GROWTH OBTAINED AFTER 48 HOURS, INCUBATION TO CONTINUE FOR 3 DAYS. 05/14/19 21:45 Blood - Peripheral Venous Blood Culture - Final NO GROWTH AFTER 5 DAYS INCUBATION 05/14/19 21:45 Blood - Peripheral Venous Blood Culture - Final Morganella Morganii 05/15/19 01:40 Urine - Urine - Catheterized Urine Culture - Final Lactose Fermenting Neg Bacilli Problem List - Problems (1) Altered mental state Assessment/Plan: -Head CT scan shows no CT evidence of acute intracranial pathology -Neuro checks q4h -possibly secondary to infection -improved Code(s): R41.82 - ALTERED MENTAL STATUS, UNSPECIFIED Qualifiers: Altered mental status type: disorientation Qualified Code(s): R41.0 - Disorientation, unspecified (2) PNA (pneumonia) Assessment/Plan: -CXR shows cardiomegaly with mild pulmonary venous congestion vs chronic interstitial lung disease, interval mild atelectatic changes vs infiltrates in left lung base -Pulmonary consult -BC positive -no leukocytosis -afebrile -Zosyn completed, switched to PO Levaquin -LA 2.8~1.2 -bronchodilators -keep SpO2 >90% -O2 via NC -Influenza neg -repeat BC neg Code(s): J18.9 - PNEUMONIA, UNSPECIFIED ORGANISM Qualifiers: Pneumonia type: due to unspecified organism Laterality: right Lung location: lower lobe of lung Qualified Code(s): J18.9 - Pneumonia, unspecified organism (3) Afib Assessment/Plan: -Coumadin HS -INR 1.75 -monitor INR daily -therapeutic goal 2-3 Code(s): I48.91 - UNSPECIFIED ATRIAL FIBRILLATION (4) CHF (congestive heart failure) Assessment/Plan: -Furosemide q48h -daily weights -1L fluid restriction -strict I&O -low Na diet Code(s): I50.9 - HEART FAILURE, UNSPECIFIED (5) Hypothyroidism Assessment/Plan: -Levothyroxine Code(s): E03.9 - HYPOTHYROIDISM, UNSPECIFIED (6) Multiple myeloma Assessment/Plan: -Oncology consult -Revlimid Code(s): C90.00 - MULTIPLE MYELOMA NOT HAVING ACHIEVED REMISSION Qualifiers: Multiple myeloma remission status: unspecified Qualified Code(s): C90.00 - Multiple myeloma not having achieved remission (7) Supratherapeutic INR Assessment/Plan: -resolved -INR 1.75 -monitor INR daily -therapeutic goal 2-3 -Coumadin HS Code(s): R79.1 - ABNORMAL COAGULATION PROFILE (8) Venous stasis ulcer Assessment/Plan: -Vascular on board -daily dressing change -RLE and LLE treat with calcium alginate and compression dressing -offloading -coolness noted to R foot, evaluated by Vascular no intervention at this time Code(s): I83.009 - VARICOSE VEINS OF UNSP LOWER EXTREMITY W ULCER OF UNSP SITE; L97.909 - NON-PRS CHRONIC ULC UNSP PRT OF UNSP LOW LEG W UNSP SEVERITY (9) Transaminitis Assessment/Plan: -AST 72, ALT 105, Alk Phos 214 -Abd US shows borderline hepatic enlargement -GI on board -Hepatitis profile pending -MRCP ordered Code(s): R74.0 - NONSPEC ELEV OF LEVELS OF TRANSAMNS & LACTIC ACID DEHYDRGNSE Assessment/Plan see problem list
[2019-05-26] MEDS: AMINO ACIDS/PROTEIN HYDROLYS 30 ML LIQUID.PKT PO SCH (09:53)
[2019-05-26] MEDS: MAGNESIUM OXIDE 400 MG TABLET (FP) PO SCH (09:54)
[2019-05-26] MEDS: LENALIDOMIDE PO SCH (11:21)
[2019-05-26] MEDS: MOMETASONE FUROATE 220 MCG/IH INHALER IH SCH (11:21)
--- NOTE | 2019-05-26 12:33 | PN ---
Progress Note (short form) - Note Progress Note: PULMONARY Denies shortness of breath, cough or wheezing. No fevers. Vital Signs Period Temp Pulse Resp BP Sys/Ferrer Pulse Ox Last 24 Hr 98 F-99.8 F 66-79 20-20 102-156/47-61 99-100 Gen: NAD at rest Heart: RRR Lung: decreased breath sounds at the bases Abd: soft, nontender Ext: legs wrapped CBC, BMP 05/26/19 06:20 05/26/19 06:20 Active Medications Albuterol Sulfate (Ventolin 0.083% Nebulizer Soln -) 1 amp NEB Q6H PRN PRN Reason: SHORT OF BREATH/WHEEZING Amino Acids (Prosource No Carb Liquid Pkt) 30 ml PO DAILY@0800 [facility] Last Admin: 05/26/19 09:53 Dose: 30 ml Ascorbic Acid (Vitamin C -) 500 mg PO DAILY [facility] Last Admin: 05/26/19 09:26 Dose: 500 mg Famotidine (Pepcid -) 20 mg PO BID [facility] Last Admin: 05/26/19 09:28 Dose: 20 mg Furosemide (Lasix -) 20 mg PO Q2D [facility] Last Admin: 05/26/19 09:27 Dose: 20 mg Gabapentin (Neurontin -) 600 mg PO TID [facility] Last Admin: 05/26/19 06:47 Dose: 600 mg Sodium Chloride (Normal Saline -) 1,000 mls @ 75 mls/hr IV ASDIR [facility] Last Admin: 05/26/19 07:12 Dose: 75 mls/hr Levofloxacin (Levaquin -) 250 mg PO DAILY@0600 [facility] Last Admin: 05/26/19 06:47 Dose: 250 mg Levothyroxine Sodium (Synthroid -) 100 mcg PO DAILY@0700 [facility] Last Admin: 05/26/19 07:06 Dose: 100 mcg Magnesium Oxide (Mag-Ox -) 400 mg PO DAILY [facility] Last Admin: 05/26/19 09:54 Dose: 400 mg Memantine (Namenda -) 5 mg PO BID [facility] Last Admin: 05/26/19 09:26 Dose: 5 mg Metoprolol Succinate (Toprol Xl -) 25 mg PO DAILY [facility] Last Admin: 05/26/19 09:27 Dose: 25 mg Mometasone Furoate (Asmanex 220mcg -) 1 puff IH DAILY [facility] Last Admin: 05/26/19 11:21 Dose: Not Given Multi-Ingredient Ointment (Zinc Oxide) 1 applic TP TID [facility] Last Admin: 05/26/19 07:03 Dose: 1 applic Multivitamins/Minerals/Vitamin C (Tab-A-Vit -) 1 tab PO DAILY [facility] Last Admin: 05/26/19 09:26 Dose: 1 tab Non-Formulary Medication (Lenalidomide [Revlimid]) 1 tab PO DAILY [facility] Last Admin: 05/26/19 11:21 Dose: 1 tab Potassium Chloride (K-Dur -) 20 meq PO DAILY [facility] Last Admin: 05/26/19 09:27 Dose: 20 meq Pramipexole Dihydrochloride (Mirapex -) 0.25 mg PO TID [facility] Last Admin: 05/26/19 06:48 Dose: 0.25 mg Warfarin Sodium (Coumadin -) 6 mg PO DAILY@1800 [facility] Last Admin: 05/25/19 17:13 Dose: 6 mg A/P Morganella Bacteremia Cellulitis/Infected Ulcers Sepsis Lactic Acidosis Multiple Myeloma Atrial Fibrillation Pulmonary HTN h/o DVT DM Thrombocytopenia improved Elevated LFTs improving Anemia - continue antibiotics - wound care - rate control - continue anticoagulation
--- NOTE | 2019-05-26 12:54 | PN ---
Progress Note (short form) - Note Progress Note: Seen in follow up. No events overnight. Comfortable, sitting up in bed. No complaints - pleasantly interactive. Noted to be febrile at this time. Inpatient meds reviewed: Current Medications Albuterol Sulfate (Ventolin 0.083% Nebulizer Soln -) 1 amp NEB Q6H PRN PRN Reason: SHORT OF BREATH/WHEEZING Amino Acids (Prosource No Carb Liquid Pkt) 30 ml PO DAILY@0800 [facility] Last Admin: 05/26/19 09:53 Dose: 30 ml Ascorbic Acid (Vitamin C -) 500 mg PO DAILY [facility] Last Admin: 05/26/19 09:26 Dose: 500 mg Famotidine (Pepcid -) 20 mg PO BID [facility] Last Admin: 05/26/19 09:28 Dose: 20 mg Furosemide (Lasix -) 20 mg PO Q2D [facility] Last Admin: 05/26/19 09:27 Dose: 20 mg Gabapentin (Neurontin -) 600 mg PO TID [facility] Last Admin: 05/26/19 06:47 Dose: 600 mg Sodium Chloride (Normal Saline -) 1,000 mls @ 75 mls/hr IV ASDIR [facility] Last Admin: 05/26/19 07:12 Dose: 75 mls/hr Levofloxacin (Levaquin -) 250 mg PO DAILY@0600 [facility] Last Admin: 05/26/19 06:47 Dose: 250 mg Levothyroxine Sodium (Synthroid -) 100 mcg PO DAILY@0700 [facility] Last Admin: 05/26/19 07:06 Dose: 100 mcg Magnesium Oxide (Mag-Ox -) 400 mg PO DAILY [facility] Last Admin: 05/26/19 09:54 Dose: 400 mg Memantine (Namenda -) 5 mg PO BID [facility] Last Admin: 05/26/19 09:26 Dose: 5 mg Metoprolol Succinate (Toprol Xl -) 25 mg PO DAILY [facility] Last Admin: 05/26/19 09:27 Dose: 25 mg Mometasone Furoate (Asmanex 220mcg -) 1 puff IH DAILY [facility] Last Admin: 05/26/19 11:21 Dose: Not Given Multi-Ingredient Ointment (Zinc Oxide) 1 applic TP TID [facility] Last Admin: 05/26/19 07:03 Dose: 1 applic Multivitamins/Minerals/Vitamin C (Tab-A-Vit -) 1 tab PO DAILY [facility] Last Admin: 05/26/19 09:26 Dose: 1 tab Non-Formulary Medication (Lenalidomide [Revlimid]) 1 tab PO DAILY [facility] Last Admin: 05/26/19 11:21 Dose: 1 tab Potassium Chloride (K-Dur -) 20 meq PO DAILY [facility] Last Admin: 05/26/19 09:27 Dose: 20 meq Pramipexole Dihydrochloride (Mirapex -) 0.25 mg PO TID [facility] Last Admin: 05/26/19 06:48 Dose: 0.25 mg Warfarin Sodium (Coumadin -) 6 mg PO DAILY@1800 [facility] Last Admin: 05/25/19 17:13 Dose: 6 mg On Examination: Last Vital Signs Temp Pulse Resp BP Pulse Ox 98 F 66 20 102/47 L 100 05/26/19 10:00 05/26/19 10:00 05/26/19 10:00 05/26/19 10:00 05/26/19 08:40 General: In no acute distress, supine in bed. Extremities: No pallor or icterus. CVS: S1, S2, no gallop or murmur. Chest: breathing comfortably, clear. Abdomen: non-distended, non-tender Neuro: Alert, not-oriented to time or place presently, non-focal Labs: 05/26/19 06:20 05/26/19 06:20 Assessment. Multiple myeloma, until this admission on active treatment (VRD), currently in remission, presenting with gm negative bacteremia. Improved on Abics. Ongoing confusion - waxes and wanes Lower extremity ulcers. Ongoing wound care. Ongoing management ID. Myeloma therapy not indicated at this time - following discharge will consider whether role for maintenance therapy (eg single agent Revlimid) vs surveillance alone.
[2019-05-26] MEDS: WARFARIN NA 3 MG TABLET PO SCH (17:40)
--- NOTE | 2019-05-26 17:55 | PN ---
Progress Note, Physician History of Present Illness: AWAKE IN BED CONFUSED OFFERS NO COMPLAINTS ELEVATED WBC NOTED - Current Medication List Current Medications: Active Medications Albuterol Sulfate (Ventolin 0.083% Nebulizer Soln -) 1 amp NEB Q6H PRN PRN Reason: SHORT OF BREATH/WHEEZING Amino Acids (Prosource No Carb Liquid Pkt) 30 ml PO DAILY@0800 [facility] Last Admin: 05/26/19 09:53 Dose: 30 ml Ascorbic Acid (Vitamin C -) 500 mg PO DAILY [facility] Last Admin: 05/26/19 09:26 Dose: 500 mg Famotidine (Pepcid -) 20 mg PO BID [facility] Last Admin: 05/26/19 09:28 Dose: 20 mg Furosemide (Lasix -) 20 mg PO Q2D [facility] Last Admin: 05/26/19 09:27 Dose: 20 mg Gabapentin (Neurontin -) 600 mg PO TID [facility] Last Admin: 05/26/19 14:09 Dose: 600 mg Sodium Chloride (Normal Saline -) 1,000 mls @ 75 mls/hr IV ASDIR [facility] Last Admin: 05/26/19 07:12 Dose: 75 mls/hr Levofloxacin (Levaquin -) 250 mg PO DAILY@0600 [facility] Last Admin: 05/26/19 06:47 Dose: 250 mg Levothyroxine Sodium (Synthroid -) 100 mcg PO DAILY@0700 [facility] Last Admin: 05/26/19 07:06 Dose: 100 mcg Magnesium Oxide (Mag-Ox -) 400 mg PO DAILY [facility] Last Admin: 05/26/19 09:54 Dose: 400 mg Memantine (Namenda -) 5 mg PO BID [facility] Last Admin: 05/26/19 09:26 Dose: 5 mg Metoprolol Succinate (Toprol Xl -) 25 mg PO DAILY [facility] Last Admin: 05/26/19 09:27 Dose: 25 mg Mometasone Furoate (Asmanex 220mcg -) 1 puff IH DAILY [facility] Last Admin: 05/26/19 11:21 Dose: Not Given Multi-Ingredient Ointment (Zinc Oxide) 1 applic TP TID [facility] Last Admin: 05/26/19 14:09 Dose: 1 applic Multivitamins/Minerals/Vitamin C (Tab-A-Vit -) 1 tab PO DAILY [facility] Last Admin: 05/26/19 09:26 Dose: 1 tab Non-Formulary Medication (Lenalidomide [Revlimid]) 1 tab PO DAILY [facility] Last Admin: 05/26/19 11:21 Dose: 1 tab Potassium Chloride (K-Dur -) 20 meq PO DAILY [facility] Last Admin: 05/26/19 09:27 Dose: 20 meq Pramipexole Dihydrochloride (Mirapex -) 0.25 mg PO TID [facility] Last Admin: 05/26/19 14:09 Dose: 0.25 mg Warfarin Sodium (Coumadin -) 6 mg PO DAILY@1800 [facility] Last Admin: 05/26/19 17:40 Dose: 6 mg - Objective Vital Signs: Vital Signs Temperature 98.9 F 05/26/19 14:46 Pulse Rate 72 05/26/19 14:46 Respiratory Rate 20 05/26/19 14:46 Blood Pressure 117/59 L 05/26/19 14:46 O2 Sat by Pulse Oximetry (%) 100 05/26/19 08:40 Constitutional: Yes: No Distress Cardiovascular: Yes: Regular Rate and Rhythm, S1, S2 Respiratory: Yes: CTA Bilaterally Gastrointestinal: Yes: Normal Bowel Sounds, Soft Extremities: Yes: Other (L LE ULCER) Edema: Yes Labs: CBC, BMP 05/26/19 06:20 05/26/19 06:20 INR, PTT INR 1.75 (0.83-1.09) H 05/26/19 06:20 Assessment/Plan GRAM NEGATIVE BACTEREMIA MORGANELLA INFECTED L LE ULCER ELEVATED WBC CONTINUE PO LEVAQUIN LOCAL WOUND CARE
[2019-05-27] MEDS: GABAPENTIN 300 MG CAPSULE PO SCH ×3 (05:34→21:14)
[2019-05-27] MEDS: PRAMIPEXOLE DIHYDROCHLORIDE 0.25 MG TABLET PO SCH ×3 (05:34→21:14)
[2019-05-27] MEDS: ZINC OXIDE 20% TOPICAL OINTMENT 30 GM TUBE TP SCH ×3 (05:38→22:48)
[2019-05-27 06:59] LABS: HEMOGLOBIN 9.1 GM/dL (10.7-15.3); MCH 30.5 pg (25.7-33.7); MCHC 33.5 g/dl (32.0-36.0); PLATELET COUNT 229 K/MM3 (134-434); RBC 2.96 M/mm3 (3.60-5.2); RDW 19.5 % (11.6-15.6); WHITE BLOOD COUNT 9.4 K/mm3 (4.0-10.0)
[2019-05-27] MEDS: LEVOTHYROXINE NA 100 MCG TABLET (FP) PO SCH (07:06)
[2019-05-27 07:24] LABS: INR 1.81 (0.83-1.09); PROTHROMBIN TIME (PATIENT) 21.5 SEC (9.7-13.0)
[2019-05-27 08:02] LABS: ALBUMIN 1.3 g/dl (3.4-5.0); BILIRUBIN,TOTAL 0.5 mg/dL (0.2-1); BLOOD UREA NITROGEN 11.8 mg/dL (7-18); CALCIUM 7.5 mg/dL (8.5-10.1); CREATININE 0.8 mg/dL (0.55-1.3); POTASSIUM 3.3 mmol/L (3.5-5.1); TOT PROT 4.3 g/dl (6.4-8.2)
[2019-05-27] MEDS: SODIUM CHLORIDE 1,000 ML IV SCH ×3 (09:20→11:53)
[2019-05-27] MEDS: POTASSIUM CHLORIDE TABS 20 MEQ TABLET.ER (FP) PO SCH (09:21)
[2019-05-27] MEDS: MULTIVITAMINS (DAILY MVI) TABLET (FP) PO SCH (09:21)
[2019-05-27] MEDS: AMINO ACIDS/PROTEIN HYDROLYS 30 ML LIQUID.PKT PO SCH (09:21)
[2019-05-27] MEDS: FAMOTIDINE 20 MG TABLET PO SCH ×2 (09:21→21:14)
[2019-05-27] MEDS: LENALIDOMIDE PO SCH (09:22)
[2019-05-27] MEDS: ASCORBIC ACID 500 MG TABLET (FP) PO SCH (09:22)
[2019-05-27] MEDS: MEMANTINE HCL 5 MG TABLET (UD) PO SCH ×2 (09:23→21:14)
[2019-05-27] MEDS: MAGNESIUM OXIDE 400 MG TABLET (FP) PO SCH (09:23)
[2019-05-27] MEDS: MOMETASONE FUROATE 220 MCG/IH INHALER IH SCH (09:23)
--- NOTE | 2019-05-27 11:00 | PN ---
Progress Note, Physician Chief Complaint: AMS Pneumonia History of Present Illness: Previous notes and events reviewed awake and alert, more confused today NAD denies complaints of chest pain or palpitation hypotensive with IV hydration LLE edema, erythema, warm to touch no leukocytosis afebrile INR 1.81 - Current Medication List Current Medications: Active Medications Albuterol Sulfate (Ventolin 0.083% Nebulizer Soln -) 1 amp NEB Q6H PRN PRN Reason: SHORT OF BREATH/WHEEZING Amino Acids (Prosource No Carb Liquid Pkt) 30 ml PO DAILY@0800 [facility] Last Admin: 05/27/19 09:21 Dose: 30 ml Ascorbic Acid (Vitamin C -) 500 mg PO DAILY [facility] Last Admin: 05/27/19 09:22 Dose: 500 mg Famotidine (Pepcid -) 20 mg PO BID [facility] Last Admin: 05/27/19 09:21 Dose: 20 mg Furosemide (Lasix -) 20 mg PO Q2D [facility] Last Admin: 05/26/19 09:27 Dose: 20 mg Gabapentin (Neurontin -) 600 mg PO TID [facility] Last Admin: 05/27/19 05:34 Dose: 600 mg Sodium Chloride (Normal Saline -) 1,000 mls @ 75 mls/hr IV ASDIR [facility] Last Admin: 05/27/19 09:20 Dose: 75 mls/hr Levofloxacin (Levaquin -) 250 mg PO DAILY@0600 [facility] Last Admin: 05/27/19 05:35 Dose: 250 mg Levothyroxine Sodium (Synthroid -) 100 mcg PO DAILY@0700 [facility] Last Admin: 05/27/19 07:06 Dose: 100 mcg Magnesium Oxide (Mag-Ox -) 400 mg PO DAILY [facility] Last Admin: 05/27/19 09:23 Dose: 400 mg Memantine (Namenda -) 5 mg PO BID [facility] Last Admin: 05/27/19 09:23 Dose: 5 mg Metoprolol Succinate (Toprol Xl -) 25 mg PO DAILY [facility] Last Admin: 05/26/19 09:27 Dose: 25 mg Mometasone Furoate (Asmanex 220mcg -) 1 puff IH DAILY [facility] Last Admin: 05/27/19 09:23 Dose: 1 puff Multi-Ingredient Ointment (Zinc Oxide) 1 applic TP TID [facility] Last Admin: 02/02/20 05:38 Dose: 1 applic Multivitamins/Minerals/Vitamin C (Tab-A-Vit -) 1 tab PO DAILY [facility] Last Admin: 05/27/19 09:21 Dose: 1 tab Non-Formulary Medication (Lenalidomide [Revlimid]) 1 tab PO DAILY [facility] Last Admin: 05/27/19 09:22 Dose: 1 tab Potassium Chloride (K-Dur -) 20 meq PO DAILY [facility] Last Admin: 05/27/19 09:21 Dose: 20 meq Pramipexole Dihydrochloride (Mirapex -) 0.25 mg PO TID [facility] Last Admin: 05/27/19 05:34 Dose: 0.25 mg Warfarin Sodium (Coumadin -) 6 mg PO DAILY@1800 [facility] Last Admin: 05/26/19 17:40 Dose: 6 mg - Objective Vital Signs: Vital Signs Temperature 98.1 F 05/27/19 09:20 Pulse Rate 63 05/27/19 09:20 Respiratory Rate 18 05/27/19 09:20 Blood Pressure 96/66 05/27/19 09:20 O2 Sat by Pulse Oximetry (%) 98 05/27/19 09:00 Constitutional: Yes: No Distress, Calm Eyes: Yes: Conjunctiva Clear HENT: Yes: Atraumatic Cardiovascular: Yes: Regular Rate and Rhythm Respiratory: Yes: Regular, Diminished, On Nasal O2 Gastrointestinal: Yes: Normal Bowel Sounds, Soft Genitourinary: Yes: Incontinence Musculoskeletal: Yes: Muscle Weakness Extremities: Yes: WNL Edema: Yes Edema: LLE: Trace Neurological: Yes: Alert, Confusion Psychiatric: Yes: Alert Labs: CBC, BMP 05/27/19 06:31 05/27/19 06:31 INR, PTT INR 1.81 (0.83-1.09) H 05/27/19 06:31 Microbiology 05/23/19 16:40 Blood - Peripheral Venous Blood Culture - Preliminary NO GROWTH OBTAINED AFTER 72 HOURS, INCUBATION TO CONTINUE FOR 2 DAYS. 05/23/19 16:45 Blood - Peripheral Venous Blood Culture - Preliminary NO GROWTH OBTAINED AFTER 72 HOURS, INCUBATION TO CONTINUE FOR 2 DAYS. 05/14/19 21:45 Blood - Peripheral Venous Blood Culture - Final NO GROWTH AFTER 5 DAYS INCUBATION 05/14/19 21:45 Blood - Peripheral Venous Blood Culture - Final Morganella Morganii 05/15/19 01:40 Urine - Urine - Catheterized Urine Culture - Final Lactose Fermenting Neg Bacilli Problem List - Problems (1) Altered mental state Assessment/Plan: -Head CT scan shows no CT evidence of acute intracranial pathology -Neuro checks q4h -possibly secondary to infection -improved Code(s): R41.82 - ALTERED MENTAL STATUS, UNSPECIFIED Qualifiers: Altered mental status type: disorientation Qualified Code(s): R41.0 - Disorientation, unspecified (2) PNA (pneumonia) Assessment/Plan: -CXR shows cardiomegaly with mild pulmonary venous congestion vs chronic interstitial lung disease, interval mild atelectatic changes vs infiltrates in left lung base -Pulmonary consult -BC positive -no leukocytosis -afebrile -Zosyn completed, switched to PO Levaquin -LA 2.8~1.2 -bronchodilators -keep SpO2 >90% -O2 via NC -Influenza neg -repeat BC neg Code(s): J18.9 - PNEUMONIA, UNSPECIFIED ORGANISM Qualifiers: Pneumonia type: due to unspecified organism Laterality: right Lung location: lower lobe of lung Qualified Code(s): J18.9 - Pneumonia, unspecified organism (3) Afib Assessment/Plan: -Coumadin HS -INR 1.81 -monitor INR daily -therapeutic goal 2-3 Code(s): I48.91 - UNSPECIFIED ATRIAL FIBRILLATION (4) CHF (congestive heart failure) Assessment/Plan: -Furosemide q48h -daily weights -1L fluid restriction -strict I&O -low Na diet Code(s): I50.9 - HEART FAILURE, UNSPECIFIED (5) Hypothyroidism Assessment/Plan: -Levothyroxine Code(s): E03.9 - HYPOTHYROIDISM, UNSPECIFIED (6) Multiple myeloma Assessment/Plan: -Oncology consult -Revlimid Code(s): C90.00 - MULTIPLE MYELOMA NOT HAVING ACHIEVED REMISSION Qualifiers: Multiple myeloma remission status: unspecified Qualified Code(s): C90.00 - Multiple myeloma not having achieved remission (7) Supratherapeutic INR Assessment/Plan: -resolved -INR 1.81 -monitor INR daily -therapeutic goal 2-3 -Coumadin HS Code(s): R79.1 - ABNORMAL COAGULATION PROFILE (8) Venous stasis ulcer Assessment/Plan: -Vascular on board -daily dressing change -RLE and LLE treat with calcium alginate and compression dressing -offloading -coolness noted to R foot, evaluated by Vascular no intervention at this time -LLE edema noted, Vascular US neg for DVT Code(s): I83.009 - VARICOSE VEINS OF UNSP LOWER EXTREMITY W ULCER OF UNSP SITE; L97.909 - NON-PRS CHRONIC ULC UNSP PRT OF UNSP LOW LEG W UNSP SEVERITY (9) Transaminitis Assessment/Plan: -AST 68, ALT 93, Alk Phos 179 -Abd US shows borderline hepatic enlargement -GI on board -Hepatitis profile pending -MRCP ordered Code(s): R74.0 - NONSPEC ELEV OF LEVELS OF TRANSAMNS & LACTIC ACID DEHYDRGNSE (10) Hypotension Assessment/Plan: -IV hydration -denies dizziness -Cardiology consult placed Code(s): I95.9 - HYPOTENSION, UNSPECIFIED Assessment/Plan see problem list dvt ppx
[2019-05-27] MEDS: metoPROLOL SUCCINATE 25 MG TAB.SR.24H (FP) PO SCH (11:10)
--- NOTE | 2019-05-27 13:08 | PN ---
Progress Note (short form) - Note Progress Note: PULMONARY Denies shortness of breath, cough or wheezing. No fevers. Vital Signs Period Temp Pulse Resp BP Sys/Ferrer Pulse Ox Last 24 Hr 98.1 F-100.2 F 63-74 18-20 96-134/47-66 98-100 Gen: NAD at rest Heart: RRR Lung: decreased breath sounds at the bases Abd: soft, nontender Ext: legs wrapped CBC, BMP 05/27/19 06:31 05/27/19 06:31 Active Medications Albuterol Sulfate (Ventolin 0.083% Nebulizer Soln -) 1 amp NEB Q6H PRN PRN Reason: SHORT OF BREATH/WHEEZING Amino Acids (Prosource No Carb Liquid Pkt) 30 ml PO DAILY@0800 [facility] Last Admin: 05/27/19 09:21 Dose: 30 ml Ascorbic Acid (Vitamin C -) 500 mg PO DAILY [facility] Last Admin: 05/27/19 09:22 Dose: 500 mg Famotidine (Pepcid -) 20 mg PO BID [facility] Last Admin: 05/27/19 09:21 Dose: 20 mg Furosemide (Lasix -) 20 mg PO Q2D [facility] Last Admin: 05/26/19 09:27 Dose: 20 mg Gabapentin (Neurontin -) 600 mg PO TID [facility] Last Admin: 05/27/19 05:34 Dose: 600 mg Sodium Chloride (Normal Saline -) 1,000 mls @ 42 mls/hr IV ASDIR [facility] Levofloxacin (Levaquin -) 250 mg PO DAILY@0600 [facility] Last Admin: 05/27/19 05:35 Dose: 250 mg Levothyroxine Sodium (Synthroid -) 100 mcg PO DAILY@0700 [facility] Last Admin: 05/27/19 07:06 Dose: 100 mcg Magnesium Oxide (Mag-Ox -) 400 mg PO DAILY [facility] Last Admin: 05/27/19 09:23 Dose: 400 mg Memantine (Namenda -) 5 mg PO BID [facility] Last Admin: 05/27/19 09:23 Dose: 5 mg Metoprolol Succinate (Toprol Xl -) 25 mg PO DAILY [facility] Last Admin: 05/27/19 11:10 Dose: Not Given Mometasone Furoate (Asmanex 220mcg -) 1 puff IH DAILY [facility] Last Admin: 05/27/19 09:23 Dose: 1 puff Multi-Ingredient Ointment (Zinc Oxide) 1 applic TP TID [facility] Last Admin: 05/27/19 05:38 Dose: 1 applic Multivitamins/Minerals/Vitamin C (Tab-A-Vit -) 1 tab PO DAILY [facility] Last Admin: 05/27/19 09:21 Dose: 1 tab Non-Formulary Medication (Lenalidomide [Revlimid]) 1 tab PO DAILY [facility] Last Admin: 05/27/19 09:22 Dose: 1 tab Potassium Chloride (K-Dur -) 20 meq PO DAILY [facility] Last Admin: 05/27/19 09:21 Dose: 20 meq Pramipexole Dihydrochloride (Mirapex -) 0.25 mg PO TID [facility] Last Admin: 05/27/19 05:34 Dose: 0.25 mg Warfarin Sodium (Coumadin -) 6 mg PO DAILY@1800 [facility] Last Admin: 05/26/19 17:40 Dose: 6 mg A/P Morganella Bacteremia Cellulitis/Infected Ulcers Sepsis Lactic Acidosis Multiple Myeloma Atrial Fibrillation Pulmonary HTN h/o DVT DM Thrombocytopenia improved Elevated LFTs improving Anemia - continue antibiotics - wound care - rate control - continue anticoagulation
--- NOTE | 2019-05-27 16:58 | PN ---
Progress Note (short form) - Note Progress Note: Seen in follow up. No events overnight. Comfortable, sitting up in bed. No complaints - pleasantly interactive. Inpatient meds reviewed: Current Medications Albuterol Sulfate (Ventolin 0.083% Nebulizer Soln -) 1 amp NEB Q6H PRN PRN Reason: SHORT OF BREATH/WHEEZING Amino Acids (Prosource No Carb Liquid Pkt) 30 ml PO DAILY@0800 [facility] Last Admin: 05/27/19 09:21 Dose: 30 ml Ascorbic Acid (Vitamin C -) 500 mg PO DAILY [facility] Last Admin: 05/27/19 09:22 Dose: 500 mg Famotidine (Pepcid -) 20 mg PO BID [facility] Last Admin: 05/27/19 09:21 Dose: 20 mg Furosemide (Lasix -) 20 mg PO Q2D [facility] Last Admin: 05/26/19 09:27 Dose: 20 mg Gabapentin (Neurontin -) 600 mg PO TID [facility] Last Admin: 05/27/19 14:53 Dose: 600 mg Sodium Chloride (Normal Saline -) 1,000 mls @ 42 mls/hr IV ASDIR [facility] Last Admin: 05/27/19 11:53 Dose: 42 mls/hr Levofloxacin (Levaquin -) 250 mg PO DAILY@0600 [facility] Last Admin: 05/27/19 05:35 Dose: 250 mg Levothyroxine Sodium (Synthroid -) 100 mcg PO DAILY@0700 [facility] Last Admin: 05/27/19 07:06 Dose: 100 mcg Magnesium Oxide (Mag-Ox -) 400 mg PO DAILY [facility] Last Admin: 05/27/19 09:23 Dose: 400 mg Memantine (Namenda -) 5 mg PO BID [facility] Last Admin: 05/27/19 09:23 Dose: 5 mg Metoprolol Succinate (Toprol Xl -) 25 mg PO DAILY [facility] Last Admin: 05/27/19 11:10 Dose: Not Given Mometasone Furoate (Asmanex 220mcg -) 1 puff IH DAILY [facility] Last Admin: 05/27/19 09:23 Dose: 1 puff Multi-Ingredient Ointment (Zinc Oxide) 1 applic TP TID [facility] Last Admin: 05/27/19 05:38 Dose: 1 applic Multivitamins/Minerals/Vitamin C (Tab-A-Vit -) 1 tab PO DAILY [facility] Last Admin: 05/27/19 09:21 Dose: 1 tab Non-Formulary Medication (Lenalidomide [Revlimid]) 1 tab PO DAILY [facility] Last Admin: 05/27/19 09:22 Dose: 1 tab Potassium Chloride (K-Dur -) 20 meq PO DAILY [facility] Last Admin: 05/27/19 09:21 Dose: 20 meq Pramipexole Dihydrochloride (Mirapex -) 0.25 mg PO TID [facility] Last Admin: 05/27/19 14:53 Dose: 0.25 mg Warfarin Sodium (Coumadin -) 6 mg PO DAILY@1800 [facility] Last Admin: 05/26/19 17:40 Dose: 6 mg On Examination: Last Vital Signs Temp Pulse Resp BP Pulse Ox 99.7 F H 69 18 120/54 L 98 05/27/19 15:10 05/27/19 15:10 05/27/19 15:10 05/27/19 15:10 05/27/19 09:00 General: In no acute distress, supine in bed. Extremities: No pallor or icterus. CVS: S1, S2, no gallop or murmur. Chest: breathing comfortably, clear. Abdomen: non-distended, non-tender Neuro: Alert, not-oriented to time or place presently, non-focal Labs: CBC, BMP 05/27/19 06:31 05/27/19 06:31 Assessment. Multiple myeloma, until this admission on active treatment ([facility]D), currently in remission, presenting with gm negative bacteremia. Improved on Abics. Ongoing confusion - waxes and wanes Lower extremity ulcers. Ongoing wound care. Ongoing management ID. Myeloma therapy not indicated at this time - following discharge will consider whether role for maintenance therapy (eg single agent Revlimid) vs surveillance alone.
[2019-05-27] MEDS: WARFARIN NA 3 MG TABLET PO SCH (17:22)
[2019-05-28] MEDS: PRAMIPEXOLE DIHYDROCHLORIDE 0.25 MG TABLET PO SCH ×3 (06:11→22:41)
[2019-05-28] MEDS: GABAPENTIN 300 MG CAPSULE PO SCH ×3 (06:12→22:41)
[2019-05-28] MEDS: LEVOTHYROXINE NA 100 MCG TABLET (FP) PO SCH (06:12)
[2019-05-28] MEDS: ZINC OXIDE 20% TOPICAL OINTMENT 30 GM TUBE TP SCH ×3 (06:15→22:42)
[2019-05-28 07:14] LABS: HEMOGLOBIN 8.5 GM/dL (10.7-15.3); MCH 28.2 pg (25.7-33.7); MCHC 34.1 g/dl (32.0-36.0); MEAN CELL VOLUME 82.5 fl (80-96); MEAN PLT VOLUME 6.8 fl (7.5-11.1); PLATELET COUNT 201 K/MM3 (134-434); RBC 3.03 M/mm3 (3.60-5.2); RDW 18.2 % (11.6-15.6); WHITE BLOOD COUNT 4.4 K/mm3 (4.0-10.0)
[2019-05-28 07:29] LABS: INR 1.65 (0.83-1.09); PROTHROMBIN TIME (PATIENT) 19.6 SEC (9.7-13.0)
[2019-05-28 07:38] LABS: ALBUMIN 1.4 g/dl (3.4-5.0); BILIRUBIN,TOTAL 0.7 mg/dL (0.2-1); BLOOD UREA NITROGEN 11.9 mg/dL (7-18); CALCIUM 7.9 mg/dL (8.5-10.1); CREATININE 0.8 mg/dL (0.55-1.3); POTASSIUM 3.3 mmol/L (3.5-5.1); TOT PROT 4.7 g/dl (6.4-8.2)
[2019-05-28] MEDS: AMINO ACIDS/PROTEIN HYDROLYS 30 ML LIQUID.PKT PO SCH (09:23)
[2019-05-28] MEDS: POTASSIUM CHLORIDE TABS 20 MEQ TABLET.ER (FP) PO SCH (09:24)
[2019-05-28] MEDS: metoPROLOL SUCCINATE 25 MG TAB.SR.24H (FP) PO SCH (09:24)
[2019-05-28] MEDS: MULTIVITAMINS (DAILY MVI) TABLET (FP) PO SCH (09:24)
[2019-05-28] MEDS: FUROSEMIDE 20 MG TABLET (FP) PO SCH (09:25)
[2019-05-28] MEDS: ASCORBIC ACID 500 MG TABLET (FP) PO SCH (09:25)
[2019-05-28] MEDS: MEMANTINE HCL 5 MG TABLET (UD) PO SCH ×2 (09:25→22:41)
[2019-05-28] MEDS: MAGNESIUM OXIDE 400 MG TABLET (FP) PO SCH (09:25)
[2019-05-28] MEDS: FAMOTIDINE 20 MG TABLET PO SCH ×2 (09:26→22:41)
[2019-05-28] MEDS: LENALIDOMIDE PO SCH (09:27)
[2019-05-28] MEDS: MOMETASONE FUROATE 220 MCG/IH INHALER IH SCH (09:28)
[2019-05-28] MEDS: SODIUM CHLORIDE 1,000 ML IV SCH ×2 (09:35→11:49)
--- NOTE | 2019-05-28 10:03 | PN ---
Progress Note (short form) - Note Progress Note: Resting in NAD. No shortness of breath, cough or wheezing. No fevers. Intake & Output 05/25/19 05/26/19 05/27/19 05/28/19 23:59 23:59 23:59 23:59 Intake Total 350 825 675 378 Output Total 1450 1800 500 Balance -1100 -975 175 378 Last Vital Signs Temp Pulse Resp BP Pulse Ox 98.9 F 64 18 121/59 L 97 05/28/19 08:17 05/28/19 08:17 05/28/19 08:17 05/28/19 08:17 05/27/19 21:00 Active Medications Amino Acids (Prosource No Carb Liquid Pkt) 30 ml PO DAILY@0800 [facility] Last Admin: 05/28/19 09:23 Dose: 30 ml Ascorbic Acid (Vitamin C -) 500 mg PO DAILY [facility] Last Admin: 05/28/19 09:25 Dose: 500 mg Famotidine (Pepcid -) 20 mg PO BID [facility] Last Admin: 05/28/19 09:26 Dose: 20 mg Furosemide (Lasix -) 20 mg PO Q2D [facility] Last Admin: 05/28/19 09:25 Dose: 20 mg Gabapentin (Neurontin -) 600 mg PO TID [facility] Last Admin: 05/28/19 06:12 Dose: 600 mg Sodium Chloride (Normal Saline -) 1,000 mls @ 42 mls/hr IV ASDIR [facility] Last Admin: 05/28/19 09:35 Dose: 42 mls/hr Levofloxacin (Levaquin -) 250 mg PO DAILY@0600 [facility] Last Admin: 05/28/19 06:11 Dose: 250 mg Levothyroxine Sodium (Synthroid -) 100 mcg PO DAILY@0700 [facility] Last Admin: 05/28/19 06:12 Dose: 100 mcg Magnesium Oxide (Mag-Ox -) 400 mg PO DAILY [facility] Last Admin: 05/28/19 09:25 Dose: 400 mg Memantine (Namenda -) 5 mg PO BID [facility] Last Admin: 05/28/19 09:25 Dose: 5 mg Metoprolol Succinate (Toprol Xl -) 25 mg PO DAILY [facility] Last Admin: 05/28/19 09:24 Dose: 25 mg Mometasone Furoate (Asmanex 220mcg -) 1 puff IH DAILY [facility] Last Admin: 05/28/19 09:28 Dose: 1 puff Multi-Ingredient Ointment (Zinc Oxide) 1 applic TP TID [facility] Last Admin: 05/28/19 06:15 Dose: 1 applic Multivitamins/Minerals/Vitamin C (Tab-A-Vit -) 1 tab PO DAILY [facility] Last Admin: 05/28/19 09:24 Dose: 1 tab Non-Formulary Medication (Lenalidomide [Revlimid]) 1 tab PO DAILY [facility] Last Admin: 05/28/19 09:27 Dose: 1 tab Potassium Chloride (K-Dur -) 20 meq PO DAILY [facility] Last Admin: 05/28/19 09:24 Dose: 20 meq Pramipexole Dihydrochloride (Mirapex -) 0.25 mg PO TID [facility] Last Admin: 05/28/19 06:11 Dose: 0.25 mg Warfarin Sodium (Coumadin -) 6 mg PO DAILY@1800 [facility] Last Admin: 05/27/19 17:22 Dose: 6 mg Gen: NAD at rest Heart: RRR Lung: decreased breath sounds at the bases Abd: soft, nontender Ext: legs wrapped Laboratory Results - last 24 hr 05/28/19 05/28/19 05/28/19 06:15 06:35 06:35 WBC 4.4 RBC 3.03 L Hgb 8.5 L Hct 25.0 L MCV 82.5 D MCH 28.2 MCHC 34.1 RDW 18.2 H Plt Count 201 MPV 6.8 L D PT with INR 19.60 H INR 1.65 H Sodium 145 Potassium 3.3 L Chloride 109 H Carbon Dioxide 29 Anion Gap 6 L BUN 11.9 Creatinine 0.8 Est GFR (CKD-EPI)AfAm 77.37 Est GFR (CKD-EPI)NonAf 66.76 Random Glucose 73 L Calcium 7.9 L Total Bilirubin 0.7 AST 119 H ALT 132 H Alkaline Phosphatase 182 H Total Protein 4.7 L Albumin 1.4 L A/P Morganella Bacteremia Cellulitis/Infected Ulcers Sepsis Lactic Acidosis Multiple Myeloma Atrial Fibrillation Pulmonary HTN h/o DVT DM Thrombocytopenia improved Elevated LFTs improving Anemia - continue antibiotics - wound care - rate control - continue anticoagulation Dr Ohara Problem List - Problems (1) Atelectasis Code(s): J98.11 - ATELECTASIS (2) Sepsis Code(s): A41.9 - SEPSIS, UNSPECIFIED ORGANISM (3) Altered mental state Code(s): R41.82 - ALTERED MENTAL STATUS, UNSPECIFIED Qualifiers: Altered mental status type: disorientation Qualified Code(s): R41.0 - Disorientation, unspecified (4) PNA (pneumonia) Code(s): J18.9 - PNEUMONIA, UNSPECIFIED ORGANISM Qualifiers: Pneumonia type: due to unspecified organism Laterality: right Lung location: lower lobe of lung Qualified Code(s): J18.9 - Pneumonia, unspecified organism (5) Afib Code(s): I48.91 - UNSPECIFIED ATRIAL FIBRILLATION (6) Anemia Code(s): D64.9 - ANEMIA, UNSPECIFIED Qualifiers: Anemia type: B12 deficiency 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 (7) CHF (congestive heart failure) Code(s): I50.9 - HEART FAILURE, UNSPECIFIED (8) Cellulitis Code(s): L03.90 - CELLULITIS, UNSPECIFIED Qualifiers: Site of cellulitis: extremity Site of cellulitis of extremity: lower extremity Laterality: left Qualified Code(s): L03.116 - Cellulitis of left lower limb (9) Cough Code(s): R05 - COUGH (10) HTN (hypertension) Code(s): I10 - ESSENTIAL (PRIMARY) HYPERTENSION (11) Hypotension Code(s): I95.9 - HYPOTENSION, UNSPECIFIED (12) Multiple myeloma Code(s): C90.00 - MULTIPLE MYELOMA NOT HAVING ACHIEVED REMISSION Qualifiers: Multiple myeloma remission status: unspecified Qualified Code(s): C90.00 - Multiple myeloma not having achieved remission (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
--- NOTE | 2019-05-28 10:13 | PN ---
Progress Note, Physician - Current Medication List Current Medications: Active Medications Amino Acids (Prosource No Carb Liquid Pkt) 30 ml PO DAILY@0800 [facility] Last Admin: 05/28/19 09:23 Dose: 30 ml Ascorbic Acid (Vitamin C -) 500 mg PO DAILY [facility] Last Admin: 05/28/19 09:25 Dose: 500 mg Famotidine (Pepcid -) 20 mg PO BID [facility] Last Admin: 05/28/19 09:26 Dose: 20 mg Furosemide (Lasix -) 20 mg PO Q2D [facility] Last Admin: 05/28/19 09:25 Dose: 20 mg Gabapentin (Neurontin -) 600 mg PO TID [facility] Last Admin: 05/28/19 06:12 Dose: 600 mg Sodium Chloride (Normal Saline -) 1,000 mls @ 42 mls/hr IV ASDIR [facility] Last Admin: 05/28/19 09:35 Dose: 42 mls/hr Levofloxacin (Levaquin -) 250 mg PO DAILY@0600 [facility] Last Admin: 05/28/19 06:11 Dose: 250 mg Levothyroxine Sodium (Synthroid -) 100 mcg PO DAILY@0700 [facility] Last Admin: 05/28/19 06:12 Dose: 100 mcg Magnesium Oxide (Mag-Ox -) 400 mg PO DAILY [facility] Last Admin: 05/28/19 09:25 Dose: 400 mg Memantine (Namenda -) 5 mg PO BID [facility] Last Admin: 05/28/19 09:25 Dose: 5 mg Metoprolol Succinate (Toprol Xl -) 25 mg PO DAILY [facility] Last Admin: 05/28/19 09:24 Dose: 25 mg Mometasone Furoate (Asmanex 220mcg -) 1 puff IH DAILY [facility] Last Admin: 05/28/19 09:28 Dose: 1 puff Multi-Ingredient Ointment (Zinc Oxide) 1 applic TP TID [facility] Last Admin: 05/28/19 06:15 Dose: 1 applic Multivitamins/Minerals/Vitamin C (Tab-A-Vit -) 1 tab PO DAILY [facility] Last Admin: 05/28/19 09:24 Dose: 1 tab Non-Formulary Medication (Lenalidomide [Revlimid]) 1 tab PO DAILY [facility] Last Admin: 05/28/19 09:27 Dose: 1 tab Potassium Chloride (K-Dur -) 20 meq PO DAILY [facility] Last Admin: 05/28/19 09:24 Dose: 20 meq Pramipexole Dihydrochloride (Mirapex -) 0.25 mg PO TID [facility] Last Admin: 05/28/19 06:11 Dose: 0.25 mg Warfarin Sodium (Coumadin -) 6 mg PO DAILY@1800 [facility] Last Admin: 05/27/19 17:22 Dose: 6 mg - Objective Vital Signs: Vital Signs Temperature 98.9 F 05/28/19 08:17 Pulse Rate 64 05/28/19 08:17 Respiratory Rate 18 05/28/19 08:17 Blood Pressure 121/59 L 05/28/19 08:17 O2 Sat by Pulse Oximetry (%) 97 05/27/19 21:00 Labs: CBC, BMP 05/28/19 06:15 05/28/19 06:35 INR, PTT INR 1.65 (0.83-1.09) H 05/28/19 06:35 Problem List - Problems (1) Bacteremia Code(s): R78.81 - BACTEREMIA (2) Altered mental state Code(s): R41.82 - ALTERED MENTAL STATUS, UNSPECIFIED Qualifiers: Altered mental status type: disorientation Qualified Code(s): R41.0 - Disorientation, unspecified (3) PNA (pneumonia) Code(s): J18.9 - PNEUMONIA, UNSPECIFIED ORGANISM Qualifiers: Pneumonia type: due to unspecified organism Laterality: right Lung location: lower lobe of lung Qualified Code(s): J18.9 - Pneumonia, unspecified organism (4) Afib Code(s): I48.91 - UNSPECIFIED ATRIAL FIBRILLATION (5) Multiple myeloma Code(s): C90.00 - MULTIPLE MYELOMA NOT HAVING ACHIEVED REMISSION Qualifiers: Multiple myeloma remission status: unspecified Qualified Code(s): C90.00 - Multiple myeloma not having achieved remission (6) Venous stasis ulcer Code(s): I83.009 - VARICOSE VEINS OF UNSP LOWER EXTREMITY W ULCER OF UNSP SITE; L97.909 - NON-PRS CHRONIC ULC UNSP PRT OF UNSP LOW LEG W UNSP SEVERITY Assessment/Plan - Problems (1) Altered mental state Assessment/Plan: -Head CT scan shows no CT evidence of acute intracranial pathology -Neuro checks q4h -possibly secondary to infection -improved Code(s): R41.82 - ALTERED MENTAL STATUS, UNSPECIFIED Qualifiers: Altered mental status type: disorientation Qualified Code(s): R41.0 - Disorientation, unspecified (2) PNA (pneumonia) Assessment/Plan: -CXR shows cardiomegaly with mild pulmonary venous congestion vs chronic interstitial lung disease, interval mild atelectatic changes vs infiltrates in left lung base-Repeat -Pulmonary consult -BC positive -no leukocytosis -afebrile -Zosyn completed, switched to PO Levaquin -LA 2.8~1.2 -bronchodilators -keep SpO2 >90% -O2 via NC -Influenza neg -repeat BC neg Code(s): J18.9 - PNEUMONIA, UNSPECIFIED ORGANISM Qualifiers: Pneumonia type: due to unspecified organism Laterality: right Lung location: lower lobe of lung Qualified Code(s): J18.9 - Pneumonia, unspecified organism (3) Afib Assessment/Plan: -Coumadin HS -monitor INR daily -therapeutic goal 2-3 Code(s): I48.91 - UNSPECIFIED ATRIAL FIBRILLATION (4) CHF (congestive heart failure) Assessment/Plan: -Furosemide q48h -daily weights -1L fluid restriction -strict I&O -low Na diet Code(s): I50.9 - HEART FAILURE, UNSPECIFIED (5) Hypothyroidism Assessment/Plan: -Levothyroxine Code(s): E03.9 - HYPOTHYROIDISM, UNSPECIFIED (6) Multiple myeloma Assessment/Plan: -Oncology consult -Revlimid Code(s): C90.00 - MULTIPLE MYELOMA NOT HAVING ACHIEVED REMISSION Qualifiers: Multiple myeloma remission status: unspecified Qualified Code(s): C90.00 - Multiple myeloma not having achieved remission (7) Hypotension Assessment/Plan: -Resolved Code(s): I95.9 - HYPOTENSION, UNSPECIFIED (8) Venous stasis ulcer Assessment/Plan: -Vascular on board -daily dressing change -RLE and LLE treat with calcium alginate and compression dressing -offloading -coolness noted to R foot, evaluated by Vascular no intervention at this time -LLE edema noted, Vascular US neg for DVT Code(s): I83.009 - VARICOSE VEINS OF UNSP LOWER EXTREMITY W ULCER OF UNSP SITE; L97.909 - NON-PRS CHRONIC ULC UNSP PRT OF UNSP LOW LEG W UNSP SEVERITY (9) Transaminitis Assessment/Plan: -AST 68, ALT 93, Alk Phos 179 -Abd US shows borderline hepatic enlargement -GI on board -Hepatitis profile pending -MRCP done awaiting results Code(s): R74.0 - NONSPEC ELEV OF LEVELS OF TRANSAMNS & LACTIC ACID DEHYDRGNSE
[2019-05-28] MEDS ORDERED: POTASSIUM CHLORIDE TABS 20 MEQ TABLET.ER (FP) PO ONE (11:25)
[2019-05-28] MEDS ORDERED: WARFARIN NA 3 MG TABLET PO SCH (11:26)
[2019-05-28] MEDS ORDERED: POTASSIUM CHLORIDE TABS 10 MEQ TABLET.ER (FP) PO SCH (11:26)
--- NOTE | 2019-05-28 13:24 | CON.CARD ---
Consult Consult Specialty:: Cardiology Referred by:: Ananth Reason for Consultation:: low diastolic blood pressure - History of Present Illness Chief Complaint: hypotension History of Present Illness: She is an 88 F, SNF resident, history of Multiple Myeloma (on chemo, Velcade), diabetes, chronic Afib (on Coumadin), HLD, DVT, GERD, and Fibromyalgia. Admitted with sepsis found with morganella bacteremia. She was noted to have low diastolic blood pressures. No dizziness syncope or LOC. Not ambulatory at present. 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 [employer] History of Recent Travel: No Home Medications - Allergies Allergies/Adverse Reactions: Allergies Allergy/AdvReac Type Severity Reaction Status Date / Time No Known Allergies Allergy Verified 05/14/19 19:39 - Home Medications Home Medications: Ambulatory Orders Acetaminophen [Tylenol] 2 tab PO Q8H PRN 10/24/18 Albuterol Sulfate [Proair Hfa] 1 puff IH Q6H PRN 10/24/18 Atorvastatin Ca [Lipitor] 1 tab PO HS 10/24/18 Dexamethasone 5 tab PO ASDIR 10/24/18 Ferrous Sulfate [Feosol] 1 tab PO DAILY 10/24/18 Fluticasone Furoate [Arnuity Ellipta] 2 puff IH DAILY 10/24/18 Gabapentin 1 tab PO TID 10/24/18 Lenalidomide [Revlimid] 1 tab PO DAILY 10/24/18 Magnesium Oxide [Magnesium] 1 tab PO DAILY 10/24/18 Memantine HCl [Namenda -] 1 tab PO Q12H 10/24/18 Metoprolol Succinate [Toprol Xl] 25 mg PO DAILY 10/24/18 Multivitamin [Multiple Vitamins] 1 tab PO DAILY 10/24/18 Pramipexole Di-HCl [Mirapex] 1 tab PO TID 10/24/18 Tramadol HCl 1 tab PO Q8H PRN 10/24/18 Warfarin Sodium [Coumadin] 6 mg PO HS 10/31/18 Famotidine [Pepcid -] 20 mg PO BID tablet 02/09/19 Levothyroxine [Synthroid -] 100 mcg PO DAILY@0700 tablet 02/09/19 Aa/Hydrolyzed Collagen, Whey [Lps 15-30 Liquid] 30 ml PO DAILY 05/15/19 Ascorbic Acid [Vitamin C] 500 mg PO DAILY 05/15/19 Furosemide [Lasix -] 20 mg PO Q48H 05/15/19 Lactobacillus Acidophilus [Acidophilus] 1 each PO ASDIR 05/15/19 Zinc Oxide 20% Topical Oint 1 applic TP Q8H 05/15/19 Memantine HCl [Namenda -] 5 mg PO BID tab 05/17/19 Potassium Chloride [K-Dur -] 20 meq PO DAILY tablet.er 05/17/19 levoFLOXacin [Levaquin -] 250 mg PO Q48H #7 tablet 05/17/19 Collagenase Clostridium Hist. [Santyl] 1 applic TP ASDIR 05/18/19 Vital Signs: Vital Signs Temperature 98.9 F 05/28/19 08:17 Pulse Rate 64 05/28/19 08:17 Respiratory Rate 18 05/28/19 09:00 Blood Pressure 121/59 L 05/28/19 08:17 O2 Sat by Pulse Oximetry (%) 95 05/28/19 09:00 Constitutional: Yes: No Distress, Calm Eyes: Yes: Conjunctiva Clear, EOM Intact HENT: Yes: Atraumatic, Normocephalic Neck: Yes: Supple, Trachea Midline Respiratory: Yes: CTA Bilaterally Gastrointestinal: Yes: Normal Bowel Sounds, Soft Cardiovascular: Yes: Regular Rate and Rhythm JVD: No Carotid Bruit: No PMI: Non-Displaced Heart Sounds: Yes: S1, S2 Edema: Yes - Other Data Labs, Other Data: CBC, BMP 05/28/19 06:15 05/28/19 06:35 INR, PTT INR 1.65 (0.83-1.09) H 05/28/19 06:35 Imaging - Results Chest X-ray: Report Reviewed (improved chf) EKG: Report Reviewed (nl ecg) Assessment/Plan She is an 88 F, SNF resident, history of Multiple Myeloma (on chemo, Velcade), diabetes, chronic Afib (on Coumadin), HLD, DVT, GERD, and Fibromyalgia. Admitted with sepsis found with morganella bacteremia. She was noted to have low diastolic blood pressures. No dizziness syncope or LOC. Not ambulatory at present. Low blood pressure -likely due to her peripheral vasodilatation due to her infectious status. -she has no symptoms and does not need medication held. -manage conservatively from a cardiac standpoint. -not a candidate for cardiac intervention or testing. -will see as needed.
[2019-05-28] MEDS ORDERED: WARFARIN NA 2 MG TABLET (UD) ONE (16:55)
[2019-05-28] MEDS ORDERED: WARFARIN NA 5 MG TABLET (UD) ONE (16:55)
[2019-05-28] MEDS ORDERED: WARFARIN NA 5 MG, WARFARIN NA 2 MG PO SCH (18:00)
--- NOTE | 2019-05-28 18:47 | PN ---
Progress Note (short form) - Note Progress Note: PAtient seen and examined mildly confused Last Vital Signs Temp Pulse Resp BP Pulse Ox 99.4 F 70 18 115/51 L 95 05/28/19 17:29 05/28/19 17:29 05/28/19 17:29 05/28/19 17:29 05/28/19 09:00 Cor: RSR, No murmurs, No gallops Lungs: Clear to P&A Abd: Soft, Normal bowel sounds, No organomegaly Ext:No significant edema Abnormal Lab Results 05/28/19 05/28/19 05/28/19 06:15 06:35 06:35 RBC 3.03 L Hgb 8.5 L Hct 25.0 L RDW 18.2 H MPV 6.8 L D PT with INR 19.60 H INR 1.65 H Potassium 3.3 L Chloride 109 H Anion Gap 6 L Random Glucose 73 L Calcium 7.9 L AST 119 H ALT 132 H Alkaline Phosphatase 182 H Total Protein 4.7 L Albumin 1.4 L Active Medications Generic Name Dose Route Start Last Admin Trade Name Nithinq PRN Reason Stop Dose Admin Amino Acids 30 ml 05/16/19 08:00 05/28/19 09:23 Prosource No Carb Liquid Pkt PO 30 ml DAILY@0800 [facility] Administration Ascorbic Acid 500 mg 05/16/19 10:00 05/28/19 09:25 Vitamin C - PO 500 mg DAILY [facility] Administration Famotidine 20 mg 05/15/19 22:00 05/28/19 09:26 Pepcid - PO 20 mg BID [facility] Administration Furosemide 20 mg 05/16/19 10:00 05/28/19 09:25 Lasix - PO 20 mg Q2D [facility] Administration Gabapentin 600 mg 05/15/19 22:00 05/28/19 13:00 Neurontin - PO 600 mg TID [facility] Administration Levofloxacin 250 mg 05/24/19 06:00 05/28/19 06:11 Levaquin - PO 250 mg DAILY@0600 [facility] Administration Levothyroxine Sodium 100 mcg 05/16/19 07:00 05/28/19 06:12 Synthroid - PO 100 mcg DAILY@0700 [facility] Administration Magnesium Oxide 400 mg 05/16/19 10:00 05/28/19 09:25 Mag-Ox - PO 400 mg DAILY [facility] Administration Memantine 5 mg 05/15/19 22:00 05/28/19 09:25 Namenda - PO 5 mg BID [facility] Administration Metoprolol Succinate 25 mg 05/16/19 10:00 05/28/19 09:24 Toprol Xl - PO 25 mg DAILY [facility] Administration Mometasone Furoate 1 puff 05/16/19 10:00 05/28/19 09:28 Asmanex 220mcg - IH 1 puff DAILY [facility] Administration Multi-Ingredient Ointment 1 applic 05/15/19 22:00 05/28/19 13:01 Zinc Oxide TP 1 applic TID [facility] Administration Multivitamins/Minerals/Vitamin C 1 tab 05/16/19 10:00 05/28/19 09:24 Tab-A-Vit - PO 1 tab DAILY [facility] Administration Non-Formulary Medication 1 tab 05/22/19 10:00 05/28/19 09:27 Lenalidomide [Revlimid] PO 1 tab DAILY [facility] Administration Potassium Chloride 30 meq 05/28/19 11:26 K-Dur - PO DAILY [facility] Pramipexole Dihydrochloride 0.25 mg 05/15/19 22:00 05/28/19 13:01 Mirapex - PO 0.25 mg TID [facility] Administration Warfarin Sodium 5 mg/ Warfarin 7 mg 05/28/19 18:00 05/28/19 17:26 Sodium 2 mg PO 7 mg DAILY@1800 [facility] Administration A/P morganella bacteremia- suspect source is her legs--s/p zosyn cellulitis/infected ulcers improving platelets recovering multiple myeloma h/o DVTs --on coumadin monitor INR closely while on antibiotics abnl lfts-- MRI s/o cirhosis, dilated pancreatic duct /? IPMNT negative hepatitis serology monitor
[2019-05-29] MEDS: GABAPENTIN 300 MG CAPSULE PO SCH ×2 (06:57→13:01)
[2019-05-29] MEDS: PRAMIPEXOLE DIHYDROCHLORIDE 0.25 MG TABLET PO SCH ×2 (06:58→13:01)
[2019-05-29] MEDS: ZINC OXIDE 20% TOPICAL OINTMENT 30 GM TUBE TP SCH ×2 (06:58→13:02)
[2019-05-29] MEDS: LEVOTHYROXINE NA 100 MCG TABLET (FP) PO SCH (06:58)
[2019-05-29 08:28] LABS: BASO % 0.8 % (0-2.0); EOS % 2.9 % (0-4.5); HEMATOCRIT 30.8 % (32.4-45.2); HEMOGLOBIN 10.1 GM/dL (10.7-15.3); LYMPH % 9.5 % (8-40); MCHC 32.6 g/dl (32.0-36.0); MEAN CELL VOLUME 91.9 fl (80-96); MEAN PLT VOLUME 8.6 fl (7.5-11.1); MONO % 12.2 % (3.8-10.2); NEUT % 74.6 % (42.8-82.8); PLATELET COUNT 238 K/MM3 (134-434); RBC 3.35 M/mm3 (3.60-5.2); RDW 19.1 % (11.6-15.6); WHITE BLOOD COUNT 7.2 K/mm3 (4.0-10.0)
[2019-05-29] MEDS: AMINO ACIDS/PROTEIN HYDROLYS 30 ML LIQUID.PKT PO SCH (08:33)
[2019-05-29 08:39] LABS: INR 1.94 (0.83-1.09); PROTHROMBIN TIME (PATIENT) 23.1 SEC (9.7-13.0)
--- NOTE | 2019-05-29 09:04 | DS ---
Physical Examination Vital Signs: Vital Signs Temperature 98.5 F 05/29/19 08:35 Pulse Rate 55 L 05/29/19 08:35 Respiratory Rate 18 05/29/19 08:35 Blood Pressure 106/57 L 05/29/19 08:35 O2 Sat by Pulse Oximetry (%) 95 05/28/19 21:00 Cardiovascular: Yes: S1, S2 Respiratory: Yes: Regular, CTA Bilaterally Gastrointestinal: Yes: Normal Bowel Sounds, Soft Labs: CBC, BMP 05/29/19 07:53 Discharge Summary Problems reviewed: Yes Reason For Visit: ALTERED MENTAL STATUS, PNEUMONIA Current Active Problems Abnormal liver function tests (Acute) Altered mental state (Acute) Atelectasis (Acute) Bacteremia (Acute) Dilated pancreatic duct (Acute) Elevated transaminase level (Acute) PNA (pneumonia) (Acute) Paroxysmal atrial fibrillation (Acute) Pneumonia (Acute) Sepsis (Acute) Thrombocytopenia (Acute) Transaminitis (Acute) Hospital Course: - Problems (1) Altered mental state Assessment/Plan: -Head CT scan shows no CT evidence of acute intracranial pathology -Neuro checks q4h -possibly secondary to infection -improved Code(s): R41.82 - ALTERED MENTAL STATUS, UNSPECIFIED Qualifiers: Altered mental status type: disorientation Qualified Code(s): R41.0 - Disorientation, unspecified (2) PNA (pneumonia) Assessment/Plan: -CXR shows cardiomegaly with mild pulmonary venous congestion vs chronic interstitial lung disease, interval mild atelectatic changes vs infiltrates in left lung base-Repeat -Pulmonary consult -BC positive -no leukocytosis -afebrile -Zosyn completed, switched to PO Levaquin -LA 2.8~1.2 -bronchodilators -keep SpO2 >90% -O2 via NC -Influenza neg -repeat BC neg Code(s): J18.9 - PNEUMONIA, UNSPECIFIED ORGANISM Qualifiers: Pneumonia type: due to unspecified organism Laterality: right Lung location: lower lobe of lung Qualified Code(s): J18.9 - Pneumonia, unspecified organism (3) Afib Assessment/Plan: -Coumadin HS -monitor INR daily -therapeutic goal 2-3 Code(s): I48.91 - UNSPECIFIED ATRIAL FIBRILLATION (4) CHF (congestive heart failure) Assessment/Plan: -Furosemide q48h -daily weights -1L fluid restriction -strict I&O -low Na diet Code(s): I50.9 - HEART FAILURE, UNSPECIFIED (5) Hypothyroidism Assessment/Plan: -Levothyroxine Code(s): E03.9 - HYPOTHYROIDISM, UNSPECIFIED (6) Multiple myeloma Assessment/Plan: -Oncology consult -Revlimid Code(s): C90.00 - MULTIPLE MYELOMA NOT HAVING ACHIEVED REMISSION Qualifiers: Multiple myeloma remission status: unspecified Qualified Code(s): C90.00 - Multiple myeloma not having achieved remission (7) Hypotension Assessment/Plan: -Resolved Code(s): I95.9 - HYPOTENSION, UNSPECIFIED (8) Venous stasis ulcer Assessment/Plan: -Vascular on board -daily dressing change -RLE and LLE treat with calcium alginate and compression dressing -offloading -coolness noted to R foot, evaluated by Vascular no intervention at this time -LLE edema noted, Vascular US neg for DVT Code(s): I83.009 - VARICOSE VEINS OF UNSP LOWER EXTREMITY W ULCER OF UNSP SITE; L97.909 - NON-PRS CHRONIC ULC UNSP PRT OF UNSP LOW LEG W UNSP SEVERITY (9) Transaminitis Assessment/Plan: -AST 68, ALT 93, Alk Phos 179 -Abd US shows borderline hepatic enlargement -GI on board -Hepatitis profile pending -MRCP Noted gi follow up Code(s): R74.0 - NONSPEC ELEV OF LEVELS OF TRANSAMNS & LACTIC ACID DEHYDRGNSE Condition: Stable - Instructions Referrals: Tacos Rowe MD [Primary Care Provider] - Disposition: [facility] - Home Medications Comprehensive Discharge Medication List: Ambulatory Orders Acetaminophen [Tylenol] 2 tab PO Q8H PRN 10/24/18 Atorvastatin Ca [Lipitor] 1 tab PO HS 10/24/18 Ferrous Sulfate [Feosol] 1 tab PO DAILY 10/24/18 Fluticasone Furoate [Arnuity Ellipta] 2 puff IH DAILY 10/24/18 Gabapentin 1 tab PO TID 10/24/18 Lenalidomide [Revlimid] 1 tab PO DAILY 10/24/18 Magnesium Oxide [Magnesium] 1 tab PO DAILY 10/24/18 Memantine HCl [Namenda -] 1 tab PO Q12H 10/24/18 Metoprolol Succinate [Toprol Xl] 25 mg PO DAILY 10/24/18 Multivitamin [Multiple Vitamins] 1 tab PO DAILY 10/24/18 Pramipexole Di-HCl [Mirapex] 1 tab PO TID 10/24/18 Warfarin Sodium [Coumadin] 6 mg PO HS 10/31/18 Famotidine [Pepcid -] 20 mg PO BID tablet 02/09/19 Levothyroxine [Synthroid -] 100 mcg PO DAILY@0700 tablet 02/09/19 Aa/Hydrolyzed Collagen, Whey [Lps 15-30 Liquid] 30 ml PO DAILY 05/15/19 Ascorbic Acid [Vitamin C] 500 mg PO DAILY 05/15/19 Lactobacillus Acidophilus [Acidophilus] 1 each PO ASDIR 05/15/19 Zinc Oxide 20% Topical Oint 1 applic TP Q8H 05/15/19 Memantine HCl [Namenda -] 5 mg PO BID tab 05/17/19 Potassium Chloride [K-Dur -] 20 meq PO DAILY tablet.er 05/17/19 levoFLOXacin [Levaquin -] 250 mg PO Q48H #7 tablet 05/17/19 Collagenase Clostridium Hist. [Santyl] 1 applic TP ASDIR 05/18/19 Midodrine HCl [Proamatine -] 2.5 mg PO BID-MID tablet 05/29/19 Warfarin Na [Coumadin -] 7 mg PO DAILY@1800 tablet 05/29/19 levoFLOXacin [Levaquin -] 250 mg PO DAILY@0600 tablet 05/29/19
[2019-05-29 09:05] LABS: ALBUMIN 1.6 g/dl (3.4-5.0); BILIRUBIN,TOTAL 0.9 mg/dL (0.2-1); BLOOD UREA NITROGEN 14.7 mg/dL (7-18); CALCIUM 8.4 mg/dL (8.5-10.1); CREATININE 0.9 mg/dL (0.55-1.3); POTASSIUM 3.8 mmol/L (3.5-5.1); TOT PROT 5.2 g/dl (6.4-8.2)
[2019-05-29] MEDS: MULTIVITAMINS (DAILY MVI) TABLET (FP) PO SCH (09:45)
[2019-05-29] MEDS: MAGNESIUM OXIDE 400 MG TABLET (FP) PO SCH (09:46)
[2019-05-29] MEDS: ASCORBIC ACID 500 MG TABLET (FP) PO SCH (09:47)
[2019-05-29] MEDS: metoPROLOL SUCCINATE 25 MG TAB.SR.24H (FP) PO SCH (09:47)
[2019-05-29] MEDS: MEMANTINE HCL 5 MG TABLET (UD) PO SCH (09:47)
[2019-05-29] MEDS: FAMOTIDINE 20 MG TABLET PO SCH (09:48)
[2019-05-29] MEDS: LENALIDOMIDE PO SCH (09:49)
[2019-05-29] MEDS ORDERED: MIDODRINE HCL 2.5 MG TABLET PO SCH (10:00)
--- NOTE | 2019-05-29 10:38 | PN ---
Progress Note (short form) - Note Progress Note: Resting in NAD. No shortness of breath, cough or wheezing. No fevers. Intake & Output 05/26/19 05/27/19 05/28/19 05/29/19 23:59 23:59 23:59 23:59 Intake Total 734 645 1360 0 Output Total 1800 500 Balance -138 523 8084 0 Last Vital Signs Temp Pulse Resp BP Pulse Ox 98.5 F 55 L 18 106/57 L 95 05/29/19 08:35 05/29/19 08:35 05/29/19 08:35 05/29/19 08:35 05/28/19 21:00 Active Medications Amino Acids (Prosource No Carb Liquid Pkt) 30 ml PO DAILY@0800 [facility] Last Admin: 05/29/19 08:33 Dose: 30 ml Ascorbic Acid (Vitamin C -) 500 mg PO DAILY [facility] Last Admin: 05/29/19 09:47 Dose: 500 mg Famotidine (Pepcid -) 20 mg PO BID [facility] Last Admin: 05/29/19 09:48 Dose: 20 mg Gabapentin (Neurontin -) 600 mg PO TID [facility] Last Admin: 05/29/19 06:57 Dose: 600 mg Levofloxacin (Levaquin -) 250 mg PO DAILY@0600 [facility] Last Admin: 05/29/19 06:58 Dose: 250 mg Levothyroxine Sodium (Synthroid -) 100 mcg PO DAILY@0700 [facility] Last Admin: 05/29/19 06:58 Dose: 100 mcg Magnesium Oxide (Mag-Ox -) 400 mg PO DAILY [facility] Last Admin: 05/29/19 09:46 Dose: 400 mg Memantine (Namenda -) 5 mg PO BID [facility] Last Admin: 05/29/19 09:47 Dose: 5 mg Metoprolol Succinate (Toprol Xl -) 25 mg PO DAILY [facility] Last Admin: 05/29/19 09:47 Dose: 25 mg Midodrine (Proamatine -) 2.5 mg PO BID-MID [facility] Mometasone Furoate (Asmanex 220mcg -) 1 puff IH DAILY [facility] Last Admin: 05/28/19 09:28 Dose: 1 puff Multi-Ingredient Ointment (Zinc Oxide) 1 applic TP TID [facility] Last Admin: 05/29/19 06:58 Dose: 1 applic Multivitamins/Minerals/Vitamin C (Tab-A-Vit -) 1 tab PO DAILY [facility] Last Admin: 05/29/19 09:45 Dose: 1 tab Non-Formulary Medication (Lenalidomide [Revlimid]) 1 tab PO DAILY [facility] Last Admin: 05/29/19 09:49 Dose: 1 tab Potassium Chloride (K-Dur -) 30 meq PO DAILY [facility] Last Admin: 05/29/19 09:48 Dose: 30 meq Pramipexole Dihydrochloride (Mirapex -) 0.25 mg PO TID [facility] Last Admin: 05/29/19 06:58 Dose: 0.25 mg Warfarin Sodium 5 mg/ Warfarin (Sodium 2 mg) 7 mg PO DAILY@1800 [facility] Last Admin: 05/28/19 17:26 Dose: 7 mg Gen: NAD at rest Heart: RRR Lung: decreased breath sounds at the bases Abd: soft, nontender Ext: legs wrapped Laboratory Results - last 24 hr 05/29/19 05/29/19 05/29/19 07:53 07:53 07:53 WBC 7.2 RBC 3.35 L Hgb 10.1 L Hct 30.8 L D MCV 91.9 D MCH 30.0 MCHC 32.6 RDW 19.1 H Plt Count 238 MPV 8.6 D Absolute Neuts (auto) 5.4 Neutrophils % 74.6 Lymphocytes % 9.5 D Monocytes % 12.2 H Eosinophils % 2.9 D Basophils % 0.8 D Nucleated RBC % 0 PT with INR 23.10 H INR 1.94 H Sodium 139 Potassium 3.8 Chloride 102 Carbon Dioxide 29 Anion Gap 7 L BUN 14.7 Creatinine 0.9 Est GFR (CKD-EPI)AfAm 67.10 Est GFR (CKD-EPI)NonAf 57.90 Random Glucose 69 L Calcium 8.4 L Total Bilirubin 0.9 AST 93 H ALT 124 H Alkaline Phosphatase 188 H Total Protein 5.2 L Albumin 1.6 L A/P Morganella Bacteremia Cellulitis/Infected Ulcers Sepsis Lactic Acidosis Multiple Myeloma Atrial Fibrillation Pulmonary HTN h/o DVT DM Thrombocytopenia improved Elevated LFTs improving Anemia - wound care - rate control - continue anticoagulation - DC planning Dr Ohara Problem List - Problems (1) Atelectasis Code(s): J98.11 - ATELECTASIS (2) Sepsis Code(s): A41.9 - SEPSIS, UNSPECIFIED ORGANISM (3) Altered mental state Code(s): R41.82 - ALTERED MENTAL STATUS, UNSPECIFIED Qualifiers: Altered mental status type: disorientation Qualified Code(s): R41.0 - Disorientation, unspecified (4) PNA (pneumonia) Code(s): J18.9 - PNEUMONIA, UNSPECIFIED ORGANISM Qualifiers: Pneumonia type: due to unspecified organism Laterality: right Lung location: lower lobe of lung Qualified Code(s): J18.9 - Pneumonia, unspecified organism (5) Afib Code(s): I48.91 - UNSPECIFIED ATRIAL FIBRILLATION (6) Anemia Code(s): D64.9 - ANEMIA, UNSPECIFIED Qualifiers: Anemia type: B12 deficiency 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 (7) CHF (congestive heart failure) Code(s): I50.9 - HEART FAILURE, UNSPECIFIED (8) Cellulitis Code(s): L03.90 - CELLULITIS, UNSPECIFIED Qualifiers: Site of cellulitis: extremity Site of cellulitis of extremity: lower extremity Laterality: left Qualified Code(s): L03.116 - Cellulitis of left lower limb (9) Cough Code(s): R05 - COUGH (10) HTN (hypertension) Code(s): I10 - ESSENTIAL (PRIMARY) HYPERTENSION (11) Hypotension Code(s): I95.9 - HYPOTENSION, UNSPECIFIED (12) Multiple myeloma Code(s): C90.00 - MULTIPLE MYELOMA NOT HAVING ACHIEVED REMISSION Qualifiers: Multiple myeloma remission status: unspecified Qualified Code(s): C90.00 - Multiple myeloma not having achieved remission (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
[2019-05-29] MEDS: MOMETASONE FUROATE 220 MCG/IH INHALER IH SCH (11:18)
--- NOTE | 2019-05-29 15:52 | PN ---
Progress Note (short form) - Note Progress Note: MRCP report noted. dilated pancreatic duct, cirrhotic appearing liver. Goals of care will need to be clarified. Further work-up can be performed if this is what patient's family / decision maker would want. Can be referred for endoscopic ultrasound when medically optimized to further evaluate pancreas and biliary tract. Also, simplify medication regimen as able in the setting of elevated liver chemistries. Eliminate non essential medications. Problem List - Problems (1) Abnormal liver function tests Code(s): R94.5 - ABNORMAL RESULTS OF LIVER FUNCTION STUDIES
[2019-05-29 16:05] VITALS: BP 127/56; PULSE 80; TEMP 99.1
== END 2019-05-29 16:50 | DRG 871 ==
LOC: JER 19:14 → JERBED 23:35 → J7W 05-15 13:15
PROVIDERS: ADMIT Internal Medicine; ATTEND Family Medicine
DX: A41.9 Sepsis, unspecified organism (principal); J18.9 Pneumonia, unspecified organism; G92 Toxic encephalopathy; J98.11 Atelectasis; L03.90 Cellulitis, unspecified; L97.909 Non-pressure chronic ulcer of unspecified part of unspecified lower leg with unspecified severity; D68.32 Hemorrhagic disorder due to extrinsic circulating anticoagulants; N39.0 Urinary tract infection, site not specified; E87.0 Hyperosmolality and hypernatremia; C90.00 Multiple myeloma not having achieved remission; E87.2 Acidosis; R41.82 Altered mental status, unspecified; I50.9 Heart failure, unspecified; I83.009 Varicose veins of unspecified lower extremity with ulcer of unspecified site; E87.6 Hypokalemia; I95.9 Hypotension, unspecified; I27.20 Pulmonary hypertension, unspecified; D69.6 Thrombocytopenia, unspecified; D64.9 Anemia, unspecified; I48.0 Paroxysmal atrial fibrillation; R74.0 Nonspecific elevation of levels of transaminase and lactic acid dehydrogenase [LDH]; K21.9 Gastro-esophageal reflux disease without esophagitis; E03.9 Hypothyroidism, unspecified
CPT/HCPCS: 36415; 70450-TC; 71045-TC-FY; 73590-TC-LT-FY; 73590-TC-RT-FY; 73610-TC-LT-FY; 73610-TC-RT-FY; 73630-TC-LT; 73630-TC-RT-FY; 73701-TC-RT; 74181-TC; 76705-TC; 80048; 80053; 80074; 80076; 81003; 82105; 82150; 82272; 82550; 82553; 82728; 82803; 82962; 82977; 83516; 83540; 83550; 83605; 83690; 83735; 84436; 84439; 84443; 84484; 85025; 85027; 85610; 85730; 86038; 86301; 86704; 86706; 86707; 86708; 86709; 86803; 87040; 87086; 87186; 87340; 87804; 93005; 93010; 93971-TC; 99285-25; J0131; J7030; Q9967

== ENCOUNTER 2019-06-08 15:47 | Inpatient (IN) | payer OTHER, BC, MEDICARE ==
--- NOTE | 2019-06-08 17:13 | PDOC ---
History of Present Illness - General Chief Complaint: Wound Stated Complaint: LT LEG WOUND - History of Present Illness Initial Comments: The pt is an 89F w/ a history of HTN, a-fib (coumadin), T2DM, history of DVT, venous stasis wounds, chronic BLE wounds who presents from wound care for evaluation of worsening wounds. The pt denies any acute symptoms but is unable to provide a coherent history. She denies fevers at home. Per wound care note, pt sent for admission and IV Abx 06/08/19 17:26 Past History - Past Medical History Allergies/Adverse Reactions: Allergies Allergy/AdvReac Type Severity Reaction Status Date / Time No Known Allergies Allergy Verified 06/08/19 15:55 Home Medications: Ambulatory Orders Acetaminophen [Tylenol] 2 tab PO Q8H PRN 10/24/18 Atorvastatin Ca [Lipitor] 1 tab PO HS 10/24/18 Ferrous Sulfate [Feosol] 1 tab PO DAILY 10/24/18 Fluticasone Furoate [Arnuity Ellipta] 2 puff IH DAILY 10/24/18 Gabapentin 1 tab PO TID 10/24/18 Lenalidomide [Revlimid] 1 tab PO DAILY 10/24/18 Magnesium Oxide [Magnesium] 1 tab PO DAILY 10/24/18 Memantine HCl [Namenda -] 1 tab PO Q12H 10/24/18 Metoprolol Succinate [Toprol Xl] 25 mg PO DAILY 10/24/18 Multivitamin [Multiple Vitamins] 1 tab PO DAILY 10/24/18 Pramipexole Di-HCl [Mirapex] 1 tab PO TID 10/24/18 Warfarin Sodium [Coumadin] 6 mg PO HS 10/31/18 Famotidine [Pepcid -] 20 mg PO BID tablet 02/09/19 Levothyroxine [Synthroid -] 100 mcg PO DAILY@0700 tablet 02/09/19 Aa/Hydrolyzed Collagen, Whey [Lps 15-30 Liquid] 30 ml PO DAILY 05/15/19 Ascorbic Acid [Vitamin C] 500 mg PO DAILY 05/15/19 Lactobacillus Acidophilus [Acidophilus] 1 each PO ASDIR 05/15/19 Zinc Oxide 20% Topical Oint 1 applic TP Q8H 05/15/19 Memantine HCl [Namenda -] 5 mg PO BID tab 05/17/19 Potassium Chloride [K-Dur -] 20 meq PO DAILY tablet.er 05/17/19 levoFLOXacin [Levaquin -] 250 mg PO Q48H #7 tablet 05/17/19 Collagenase Clostridium Hist. [Santyl] 1 applic TP ASDIR 05/18/19 Midodrine HCl [Proamatine -] 2.5 mg PO BID-MID tablet 05/29/19 Warfarin Na [Coumadin -] 7 mg PO DAILY@1800 tablet 05/29/19 levoFLOXacin [Levaquin -] 250 mg PO DAILY@0600 tablet 05/29/19 Anemia: No Asthma: No Cancer: Yes (THYROID, MULTIPLE MYELOMA) Cardiac Disorders: Yes (afib/DVT) CVA: No COPD: No CHF: No Dementia: No Diabetes: Yes GI Disorders: No Disorders: No HTN: Yes Hypercholesterolemia: Yes Liver Disease: No Seizures: No Thyroid Disease: Yes (thyroid cancer, thyroidectomy done in 1999) - Surgical History Abdominal Surgery: Yes (exploratory lap) - Immunization History Immunization Up to Date: No - Psycho Social/Smoking Cessation Hx Smoking Status: No Smoking History: Unknown if ever smoked Have you smoked in the past 12 months: No Number of Cigarettes Smoked Daily: 0 If you are a former smoker, when did you quit?: years ago Hx Alcohol Use: No Drug/Substance Use Hx: No Substance Use Type: None Hx Substance Use Treatment: No Review of Systems - Review of Systems Able to Perform ROS?: Yes Comments:: GENERAL/CONSTITUTIONAL: No fever or chills HEAD, EYES, EARS, NOSE AND THROAT: No change in vision. No sore throat CARDIOVASCULAR: No chest pain or shortness of breath RESPIRATORY: Denies cough GASTROINTESTINAL: No nausea, vomiting GENITOURINARY: No dysuria MUSCULOSKELETAL: No joint or muscle swelling or pain. No neck or back pain SKIN: BLE wounds NEUROLOGIC: No headache, loss of consciousness, or change in strength/sensation ENDOCRINE: No increased thirst. No abnormal weight change HEMATOLOGIC/LYMPHATIC: +hx of DVT; Warfarin ALLERGIC/IMMUNOLOGIC: No hives or skin allergy 06/08/19 17:12 Is the patient limited Guatemalan proficient: No *Physical Exam - Vital Signs Last Vital Signs Temp Pulse Resp BP Pulse Ox 72 20 92/53 L 97 06/08/19 15:56 06/08/19 15:56 06/08/19 15:56 06/08/19 15:56 - Physical Exam GENERAL: Awake, alert, and oriented to person/place, in no acute distress HEAD: No signs of trauma, normocephalic, atraumatic EYES: PERRLA, EOMI, sclera anicteric, conjunctiva clear ENT: Hearing grossly normal, nares patent, oropharynx clear without exudates. Moist mucosa LUNGS: No distress, speaks in full sentences, clear to auscultation bilaterally HEART: Irregularly irregular rhythm with regular rate; normal S1 and S2, no murmurs appreciated, peripheral pulses normal and equal bilaterally ABDOMEN: Soft, nontender, normoactive bowel sounds. No guarding, no rebound EXTREMITIES: Moves all extremities independently NEUROLOGICAL: Cranial nerves II through XII grossly intact. Normal speech, no focal sensorimotor deficits SKIN: RLE with open wound over medial distal surface to SQ w/o fluctuance or purulence, surrounding warmth noted; LLE with circumferential wound w/o purulence noted, warmth noted, no fluctuance appreciated, area exquisitely TTP 06/08/19 17:13 ED Treatment Course - LABORATORY CBC & Chemistry Diagram: 06/08/19 18:20 06/08/19 20:30 Medical Decision Making - Medical Decision Making The pt is an 89F w/ a history of HTN, a-fib (coumadin), T2DM, history of DVT, venous stasis wounds, chronic BLE wounds who presents from wound care for evaluation of worsening wounds/concern for infection ED Course CMP, CBC, Blood cultures ECG IVF Clinda 600mg IV once Sodium controlled diet ordered 06/08/19 17:29 No leukocytosis No anemia Lytes overall unremarkable No JOSSIE Pt signed out to [facility] Admitting Discharge - Discharge Information Problems reviewed: Yes Clinical Impression/Diagnosis: Open leg wound Qualifiers: Encounter type: subsequent encounter Laterality: unspecified laterality Qualified Code(s): S81.809D - Unspecified open wound, unspecified lower leg, subsequent encounter Condition: Stable - Admission Yes - Follow up/Referral - Patient Discharge Instructions - Post Discharge Activity
[2019-06-08] MEDS ORDERED: SODIUM CHLORIDE 0.9% 500 ML INFUS.BAG IV ONE (17:31)
[2019-06-08] MEDS ORDERED: CLINDAMYCIN 600MG PREMIX IVPB 600 MG/50 ML BAG IVPB ONE (17:48)
--- NOTE | 2019-06-08 17:49 | PDOC ---
Documentation entered by Farrukh Camara SCRIBE, acting as scribe for Jamia Parekh MD. Jamia Parekh MD: This documentation has been prepared by the Jax yu Angel, SCRIBE, under my direction and personally reviewed by me in its entirety. I confirm that the documentation accurately reflects all work, treatment, procedures, and medical decision making performed by me. Attending Attestation - Resident Resident Name: Felix Ingram - ED Attending Attestation I have performed the following: I have examined & evaluated the patient, The case was reviewed & discussed with the resident, I agree w/resident's findings & plan, Exceptions are as noted - HPI HPI: 06/08/19 17:47 89-year-old female presents with deep bilateral chronic wounds that require IV antibiotics Head normocephalic atraumatic Neck supple Lungs are clear to auscultation but bilaterally Regular rate and rhythm S1-S2 Abdomen is flat Skin warm and dry Extremities greater than stage III possibly stage IV lower extremity ulcers and chronic venous stasis Neuro patient is alert - Physicial Exam PE: 06/08/19 22:19 please see above physical exam - Medical Decision Making 06/08/19 17:49 admit to med/surg
[2019-06-08] MEDS ORDERED: CLINDAMYCIN PHOSPHATE 600 MG/4 ML VIAL ONE (18:21)
[2019-06-08 19:21] LABS: BASO % 0.6 % (0-2.0); EOS % 5.2 % (0-4.5); HEMATOCRIT 33.1 % (32.4-45.2); HEMOGLOBIN 10.8 GM/dL (10.7-15.3); LYMPH % 9.8 % (8-40); MCH 30.7 pg (25.7-33.7); MCHC 32.5 g/dl (32.0-36.0); MEAN CELL VOLUME 94.4 fl (80-96); MEAN PLT VOLUME 10.2 fl (7.5-11.1); MONO % 11.1 % (3.8-10.2); NEUT % 73.3 % (42.8-82.8); PLATELET COUNT 324 K/MM3 (134-434); RBC 3.51 M/mm3 (3.60-5.2); WHITE BLOOD COUNT 6.8 K/mm3 (4.0-10.0)
[2019-06-08 20:33] LABS: ANISOCYTOSIS 1+; OVALOCYTE 1+; PLATELET ESTIMATE ADEQUATE
[2019-06-08 21:35] LABS: ALBUMIN 1.6 g/dl (3.4-5.0); BILIRUBIN,TOTAL 0.6 mg/dL (0.2-1); BLOOD UREA NITROGEN 15.4 mg/dL (7-18); CALCIUM 7.7 mg/dL (8.5-10.1); CREATININE 1.1 mg/dL (0.55-1.3)
[2019-06-08 21:36] LABS: POTASSIUM 5.7 mmol/L (3.5-5.1); TOT PROT 5.1 g/dl (6.4-8.2)
--- NOTE | 2019-06-08 22:18 | HP ---
Admitting History and Physical - Primary Care Physician PCP: Tacos Rowe - Admission Chief Complaint: Worsening Chronic BLE Wounds History of Present Illness: This is a 89 y/o woman with a PMHx of HTN, A-fib (Coumadin), DM, DVT (Coumadin) , Venous Stasis Wounds, Chronic BLE Wounds. Who presents to the ED from the Wound Care center for evaluation of worsening wounds, admission, IV antibitotics. The patient denies any acute symptoms but is unable to provide a coherent history- Dementia hx. History Source: Medical Record, Transfer Record Limitations to Obtaining History: Clinical Condition, Dementia - Past Medical History CLINICAL MEDICAL TRANSCRIPTIONIST: Yes: Dementia, Vertigo Cardiovascular: Yes: AFIB, Deep Vein Thrombosis, HTN, Hyperlipdemia Gastrointestinal: Yes: GERD Heme/Onc: Yes: Other (multiple myeloma) Endocrine: Yes: Diabetes Mellitus - Past Surgical History Past Surgical History: Yes: Hysterectomy - Smoking History Smoking history: Unknown if ever smoked Have you smoked in the past 12 months: No Aproximately how many cigarettes per day: 0 If you are a former smoker, when did you quit?: years ago - Alcohol/Substance Use Hx Alcohol Use: No History of Substance Use: reports: None - Social History Usual Living Arrangement: Yes: Longterm ADL: Support Services 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 History of Recent Travel: No Home Medications - Allergies Allergies/Adverse Reactions: Allergies Allergy/AdvReac Type Severity Reaction Status Date / Time No Known Allergies Allergy Verified 06/08/19 15:55 - Home Medications Home Medications: Ambulatory Orders Acetaminophen [Tylenol] 2 tab PO Q8H PRN 10/24/18 Atorvastatin Ca [Lipitor] 1 tab PO HS 10/24/18 Ferrous Sulfate [Feosol] 1 tab PO DAILY 10/24/18 Fluticasone Furoate [Arnuity Ellipta] 2 puff IH DAILY 10/24/18 Gabapentin 1 tab PO TID 10/24/18 Lenalidomide [Revlimid] 1 tab PO DAILY 10/24/18 Magnesium Oxide [Magnesium] 1 tab PO DAILY 10/24/18 Memantine HCl [Namenda -] 1 tab PO Q12H 10/24/18 Metoprolol Succinate [Toprol Xl] 25 mg PO DAILY 10/24/18 Multivitamin [Multiple Vitamins] 1 tab PO DAILY 10/24/18 Pramipexole Di-HCl [Mirapex] 1 tab PO TID 10/24/18 Warfarin Sodium [Coumadin] 6 mg PO HS 10/31/18 Famotidine [Pepcid -] 20 mg PO BID tablet 02/09/19 Levothyroxine [Synthroid -] 100 mcg PO DAILY@0700 tablet 02/09/19 Aa/Hydrolyzed Collagen, Whey [Lps 15-30 Liquid] 30 ml PO DAILY 05/15/19 Ascorbic Acid [Vitamin C] 500 mg PO DAILY 05/15/19 Lactobacillus Acidophilus [Acidophilus] 1 each PO ASDIR 05/15/19 Zinc Oxide 20% Topical Oint 1 applic TP Q8H 05/15/19 Memantine HCl [Namenda -] 5 mg PO BID tab 05/17/19 Potassium Chloride [K-Dur -] 20 meq PO DAILY tablet.er 05/17/19 levoFLOXacin [Levaquin -] 250 mg PO Q48H #7 tablet 05/17/19 Collagenase Clostridium Hist. [Santyl] 1 applic TP ASDIR 05/18/19 Midodrine HCl [Proamatine -] 2.5 mg PO BID-MID tablet 05/29/19 Warfarin Na [Coumadin -] 7 mg PO DAILY@1800 tablet 05/29/19 levoFLOXacin [Levaquin -] 250 mg PO DAILY@0600 tablet 05/29/19 Family Medical History Family History: Unable to Obtain Review of Systems Unable to obtain ROS, reason: Dementia Physical Examination Vital Signs: Vital Signs Temperature Pulse Rate 72 06/08/19 15:56 Respiratory Rate 20 06/08/19 15:56 Blood Pressure 92/53 L 06/08/19 15:56 O2 Sat by Pulse Oximetry (%) 99 06/08/19 17:25 Constitutional: Yes: No Distress, Calm, Thin Eyes: Yes: Conjunctiva Clear, PERRL HENT: Yes: Atraumatic, Normocephalic Neck: Yes: WNL, Supple, Trachea Midline Cardiovascular: Yes: Pulse Irregular, S1, S2 Respiratory: Yes: WNL, Regular, CTA Bilaterally Gastrointestinal: Yes: WNL, Normal Bowel Sounds, Soft ...Rectal Exam: Yes: Deferred Renal/: Yes: Incontinence Breast(s): Yes: WNL Musculoskeletal: Yes: WNL Extremities: Yes: WNL Edema: No Peripheral Pulses WNL: Yes Integumentary: Yes: Erythema, Venous Stasis Changes, Other (non-pressure ulcers to bilateral LE +erythema, +warmth to LLE, no fluctuance, no purulence Stage III - Stage IV, DSD with alondra noted) Neurological: Yes: Alert, Confusion, Cran Nerves II-XII Intact ...Motor Strength: WNL Psychiatric: Yes: Alert Labs: CBC, BMP 06/08/19 18:20 06/08/19 20:30 Laboratory Results - last 24 hr 06/08/19 06/08/19 06/08/19 18:20 18:20 20:30 WBC 6.8 RBC 3.51 L Hgb 10.8 Hct 33.1 MCV 94.4 MCH 30.7 MCHC 32.5 RDW 20.0 H Plt Count 324 D MPV 10.2 D Absolute Neuts (auto) 5.0 Total Counted 100 Neutrophils % 73.3 Neutrophils % (Manual) 72.0 Band Neutrophils % 3.0 Lymphocytes % 9.8 Lymphocytes % (Manual) 9.0 D Monocytes % 11.1 H Monocytes % (Manual) 8 Eosinophils % 5.2 H Eosinophils % (Manual) 7.0 H D Basophils % 0.6 Nucleated RBC % 0 Metamyelocytes 1 D Platelet Estimate Adequate Platelet Comment No clumping noted Anisocytosis 1+ Microcytosis 1+ Ovalocytes 1+ Sodium Cancelled 144 Potassium Cancelled 5.7 H Chloride Cancelled 114 H Carbon Dioxide Cancelled 26 Anion Gap Cancelled 4 L BUN Cancelled 15.4 Creatinine Cancelled 1.1 Est GFR (CKD-EPI)AfAm Cancelled 52.28 Est GFR (CKD-EPI)NonAf Cancelled 45.11 Random Glucose Cancelled 108 H Calcium Cancelled 7.7 L Total Bilirubin Cancelled 0.6 AST Cancelled 49 H ALT Cancelled 28 Alkaline Phosphatase Cancelled 104 Total Protein Cancelled 5.1 L Albumin Cancelled 1.6 L Current Medications Generic Name Dose Route Start Last Admin Trade Name Freq PRN Reason Stop Dose Admin Atorvastatin Calcium 40 mg 06/09/19 22:00 Lipitor - PO HS GIRISH Collagenase 1 applic 06/08/19 22:45 Santyl - TP ASDIR [facility] Protocol Famotidine 20 mg 06/09/19 10:00 Pepcid - PO BID GIRISH Levothyroxine Sodium 100 mcg 06/09/19 07:00 Synthroid - PO DAILY@0700 GIRIHS Memantine 5 mg 06/08/19 22:45 Namenda - PO BID GIRISH Metoprolol Succinate 25 mg 06/09/19 10:00 Toprol Xl - PO DAILY GIRISH Multivitamins/Minerals/Vitamin C 1 tab 06/09/19 10:00 Tab-A-Vit - PO DAILY [facility] Non-Formulary Medication 500 mg 06/09/19 10:00 Ascorbic Acid [Vitamin C] PO DAILY GIRISH Intake & Output 06/05/19 06/06/19 06/07/19 06/08/19 23:59 23:59 23:59 23:59 Weight 70 kg Imaging - Results EKG: Pending Problem List - Problems (1) Wound infection Code(s): T14.8 - OTHER INJURY OF UNSPECIFIED BODY REGION * DO NOT USE *; L08.9 - LOCAL INFECTION OF THE SKIN AND SUBCUTANEOUS TISSUE, UNSP (2) Wound of right lower extremity Code(s): S81.801A - UNSPECIFIED OPEN WOUND, RIGHT LOWER LEG, INITIAL ENCOUNTER (3) Cellulitis Code(s): L03.90 - CELLULITIS, UNSPECIFIED Qualifiers: (4) Venous stasis ulcer Code(s): I83.009 - VARICOSE VEINS OF UNSP LOWER EXTREMITY W ULCER OF UNSP SITE; L97.909 - NON-PRS CHRONIC ULC UNSP PRT OF UNSP LOW LEG W UNSP SEVERITY (5) Afib Code(s): I48.91 - UNSPECIFIED ATRIAL FIBRILLATION (6) CHF (congestive heart failure) Code(s): I50.9 - HEART FAILURE, UNSPECIFIED (7) HTN (hypertension) Code(s): I10 - ESSENTIAL (PRIMARY) HYPERTENSION (8) Hypocalcemia Code(s): E83.51 - HYPOCALCEMIA (9) Hypothyroidism Code(s): E03.9 - HYPOTHYROIDISM, UNSPECIFIED (10) Multiple myeloma Code(s): C90.00 - MULTIPLE MYELOMA NOT HAVING ACHIEVED REMISSION (11) Paroxysmal atrial fibrillation Code(s): I48.0 - PAROXYSMAL ATRIAL FIBRILLATION Assessment/Plan This is a 89 y/o woman with a PMHx of HTN, A-fib (Coumadin), DM, DVT (Coumadin) , Venous Stasis Wounds, Chronic BLE Wounds. Admitted to [facility] for Chronic Bilateral Lower Extremity Wounds, Cellulitis for further evaluation of their emergent condition. Plan: Admit Likely due to Failed Outpatient Therapy Blood Cultures-pending Appreciate Vascular Consult Appreciate ID Consult Wound Care No leukocytosis, no L- shift, patient is afebrile Clindamycin started in ED, will continue Calcium Corrected 9.6 Monitor CBC, BMP Monitor vitals Neurovascular checks Continue home meds when verified (no med list or NH record available) Series INR Fall precautions FEN- Low Na, Diabetic Diet DVT ppx- OOB, Continue Coumadin (INR 2.0-3.0) Dispo: Requires Inpatient Care Visit type - Emergency Visit Emergency Visit: Yes ED Registration Date: 06/08/19 Care time: The patient presented to the Emergency Department on the above date and was hospitalized for further evaluation of their emergent condition. - New Patient This patient is new to me today: Yes Date on this admission: 06/08/19 - Critical Care Critical Care patient: No
[2019-06-08] MEDS ORDERED: COLLAGENASE CLOSTRIDIUM HIST. 30 GRAMS TUBE TP SCH (22:45)
[2019-06-09 03:16] VITALS: BMI 22.3
[2019-06-09] MEDS: LEVOTHYROXINE NA 100 MCG TABLET (FP) PO SCH (06:08)
--- NOTE | 2019-06-09 08:53 | PN ---
Progress Note (short form) - Note Progress Note: Vascular surgery Pt seen and examined yesterday in wound care clinic. Pt with left lower extremity weeping ulcers down to tendon. The area is foul smelling. Pt sent to ER for admission and IV antibiotics. Please start alginate with EL to left lower ext daily. Will order CTA to make sure there is enough runoff into legs. CR is 1.1. Anthony Zaman DO
[2019-06-09] MEDS: MULTIVITAMINS (DAILY MVI) TABLET (FP) PO SCH (09:16)
[2019-06-09] MEDS: metoPROLOL SUCCINATE 25 MG TAB.SR.24H (FP) PO SCH (09:16)
[2019-06-09] MEDS: MEMANTINE HCL 5 MG TABLET (UD) PO SCH ×2 (09:16→21:42)
[2019-06-09] MEDS: CLINDAMYCIN 600MG PREMIX IVPB 600 MG/50 ML BAG IVPB SCH ×2 (09:16→16:12)
[2019-06-09] MEDS: ASCORBIC ACID 500 MG TABLET (FP) PO SCH (09:17)
--- NOTE | 2019-06-09 11:10 | PN ---
Progress Note, Physician History of Present Illness: 89 y/o woman with a PMHx of HTN, A-fib (Coumadin), DM, DVT (Coumadin), Venous Stasis Wounds, Chronic BLE Wounds. Admitted to [facility] for Chronic Bilateral Lower Extremity Wounds, Cellulitis for further evaluation of their emergent condition. - Current Medication List Current Medications: Active Medications Ascorbic Acid (Vitamin C -) 500 mg PO DAILY [facility] Last Admin: 06/09/19 09:17 Dose: 500 mg Atorvastatin Calcium (Lipitor -) 40 mg PO HS [facility] Collagenase (Santyl -) 1 applic TP ASDIR [facility]; Protocol Famotidine (Pepcid -) 20 mg PO BID [facility] Clindamycin Phosphate (Cleocin 600 Mg Premix Ivpb -) 600 mg in 50 mls @ 100 mls /hr IVPB Q6H-IV [facility]; Protocol Last Admin: 06/09/19 09:16 Dose: 100 mls/hr Levothyroxine Sodium (Synthroid -) 100 mcg PO DAILY@0700 [facility] Last Admin: 06/09/19 06:08 Dose: 100 mcg Memantine (Namenda -) 5 mg PO BID [facility] Last Admin: 06/09/19 09:16 Dose: 5 mg Metoprolol Succinate (Toprol Xl -) 25 mg PO DAILY [facility] Last Admin: 06/09/19 09:16 Dose: 25 mg Multivitamins/Minerals/Vitamin C (Tab-A-Vit -) 1 tab PO DAILY [facility] Last Admin: 06/09/19 09:16 Dose: 1 tab - Objective Vital Signs: Vital Signs Temperature 97.3 F L 06/09/19 06:00 Pulse Rate 58 L 06/09/19 06:00 Respiratory Rate 20 06/09/19 06:00 Blood Pressure 107/44 L 06/09/19 06:00 O2 Sat by Pulse Oximetry (%) 100 06/09/19 03:29 Cardiovascular: Yes: S1, S2 Respiratory: Yes: Regular, CTA Bilaterally Gastrointestinal: Yes: Normal Bowel Sounds, Soft Wound/Incision: Yes: Excoriated Neurological: Yes: Alert, Oriented Labs: CBC, BMP 06/08/19 18:20 06/08/19 20:30 Problem List - Problems (1) Open leg wound Assessment/Plan: IV ABX WOUND CARE CONSULT Code(s): S81.809A - UNSPECIFIED OPEN WOUND, UNSPECIFIED LOWER LEG, INIT ENCNTR Qualifiers: Encounter type: subsequent encounter Laterality: unspecified laterality Qualified Code(s): S81.809D - Unspecified open wound, unspecified lower leg, subsequent encounter (2) Afib Assessment/Plan: COUMADIN AND MONITOR INR Code(s): I48.91 - UNSPECIFIED ATRIAL FIBRILLATION (3) Anemia Assessment/Plan: FOLLOW LEVELS Code(s): D64.9 - ANEMIA, UNSPECIFIED Qualifiers: Anemia type: B12 deficiency 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
[2019-06-09 11:34] LABS: BASO % 0.4 % (0-2.0); EOS % 5.1 % (0-4.5); HEMATOCRIT 29.3 % (32.4-45.2); HEMOGLOBIN 9.7 GM/dL (10.7-15.3); LYMPH % 9.3 % (8-40); MCH 30.2 pg (25.7-33.7); MEAN CELL VOLUME 91.6 fl (80-96); MEAN PLT VOLUME 8.7 fl (7.5-11.1); MONO % 10.2 % (3.8-10.2); PLATELET COUNT 242 K/MM3 (134-434); RDW 18.9 % (11.6-15.6); WHITE BLOOD COUNT 5.7 K/mm3 (4.0-10.0)
[2019-06-09 11:48] LABS: INR 2.69 (0.83-1.09); PROTHROMBIN TIME (PATIENT) 32.1 SEC (9.7-13.0)
[2019-06-09 12:02] LABS: BLOOD UREA NITROGEN 11.7 mg/dL (7-18); CALCIUM 7.8 mg/dL (8.5-10.1); POTASSIUM 3.7 mmol/L (3.5-5.1)
[2019-06-09 12:21] LABS: ANISOCYTOSIS 1+; MACROCYTOSIS 0; OVALOCYTE 1+; PLATELET ESTIMATE NORMAL; TARGET CELLS 1+
--- NOTE | 2019-06-09 17:07 | EKG ---
Test Reason : Blood Pressure : / mmHG Vent. Rate : 058 BPM Atrial Rate : 058 BPM P-R Int : 130 ms QRS Dur : 082 ms QT Int : 468 ms P-R-T Axes : 039 -05 035 degrees QTc Int : 459 ms POOR DATA QUALITY, INTERPRETATION MAY BE ADVERSELY AFFECTED SINUS BRADYCARDIA POSSIBLE LEFT ATRIAL ENLARGEMENT LEFT VENTRICULAR HYPERTROPHY ABNORMAL ECG WHEN COMPARED WITH ECG OF 15-MAY-2019 05:18, VENT. RATE HAS DECREASED BY 38 BPM BASELINE ARTIFACT Confirmed by FINESSE SALINAS MD ([id number]) on 06/09/2019 5:07:17 PM Referred By: Confirmed By:FINESSE SALINAS MD
--- NOTE | 2019-06-09 18:15 | PN ---
Progress Note (short form) - Note Progress Note: ID CONSULT DICTATED INFECTED LE ULCER PENDING C/S EMPIRIC ZOSYN
[2019-06-09] MEDS: PIPERACILLIN/TAZOB 3.375 GM 3.375 GM in DEXTROSE 5%-WATER - 50 ML IVPB SCH (19:30)
[2019-06-09] MEDS ORDERED: PIPERACILLIN/TAZOBACTAM 3.375 GM VIAL IVPB ONE (19:52)
[2019-06-09] MEDS ORDERED: DEXTROSE 5%-WATER - 50 ML IVPB ONE (19:53)
[2019-06-09] MEDS: ATORVASTATIN CA 40 MG TABLET (FP) PO SCH (21:42)
[2019-06-10] MEDS ORDERED: DEXTROSE 5%-WATER - 50 ML IVPB ONE ×3 (00:55→17:22)
[2019-06-10] MEDS ORDERED: PIPERACILLIN/TAZOBACTAM 3.375 GM VIAL IVPB ONE ×3 (00:55→17:21)
[2019-06-10] MEDS: PIPERACILLIN/TAZOB 3.375 GM 3.375 GM in DEXTROSE 5%-WATER - 50 ML IVPB SCH ×3 (03:30→17:35)
[2019-06-10] MEDS: LEVOTHYROXINE NA 100 MCG TABLET (FP) PO SCH (06:20)
[2019-06-10 10:09] LABS: BASO % 0.7 % (0-2.0); EOS % 4.1 % (0-4.5); HEMATOCRIT 28.5 % (32.4-45.2); HEMOGLOBIN 9.3 GM/dL (10.7-15.3); LYMPH % 7.7 % (8-40); MCH 30.4 pg (25.7-33.7); MCHC 32.8 g/dl (32.0-36.0); MEAN CELL VOLUME 92.8 fl (80-96); MEAN PLT VOLUME 9.5 fl (7.5-11.1); MONO % 10.5 % (3.8-10.2); PLATELET COUNT 218 K/MM3 (134-434); RBC 3.07 M/mm3 (3.60-5.2); RDW 19.3 % (11.6-15.6); WHITE BLOOD COUNT 5.4 K/mm3 (4.0-10.0)
[2019-06-10] MEDS: metoPROLOL SUCCINATE 25 MG TAB.SR.24H (FP) PO SCH (10:13)
[2019-06-10] MEDS: ASCORBIC ACID 500 MG TABLET (FP) PO SCH (10:22)
[2019-06-10] MEDS: MULTIVITAMINS (DAILY MVI) TABLET (FP) PO SCH (10:22)
[2019-06-10] MEDS: MEMANTINE HCL 5 MG TABLET (UD) PO SCH ×2 (10:22→21:48)
[2019-06-10] MEDS: FAMOTIDINE 20 MG TABLET PO SCH (10:23)
[2019-06-10] MEDS: COLLAGENASE CLOSTRIDIUM HIST. 30 GRAMS TUBE TP SCH ×2 (10:28→11:50)
[2019-06-10 10:37] LABS: ALBUMIN 1.6 g/dl (3.4-5.0); BILIRUBIN,TOTAL 0.6 mg/dL (0.2-1); BLOOD UREA NITROGEN 8.9 mg/dL (7-18); CALCIUM 7.6 mg/dL (8.5-10.1); POTASSIUM 3.9 mmol/L (3.5-5.1); TOT PROT 4.6 g/dl (6.4-8.2)
--- NOTE | 2019-06-10 10:40 | PN ---
Progress Note, Physician - Current Medication List Current Medications: Active Medications Ascorbic Acid (Vitamin C -) 500 mg PO DAILY [facility] Last Admin: 06/10/19 10:22 Dose: 500 mg Atorvastatin Calcium (Lipitor -) 40 mg PO HS [facility] Last Admin: 06/09/19 21:42 Dose: 40 mg Collagenase (Santyl -) 1 applic TP DAILY [facility]; Protocol Last Admin: 06/10/19 10:28 Dose: Not Given Famotidine (Pepcid -) 20 mg PO DAILY [facility] Last Admin: 06/10/19 10:23 Dose: 20 mg Piperacillin Sod/Tazobactam (Sod 3.375 gm/ Dextrose) 50 mls @ 100 mls/hr IVPB Q8H-IV [facility]; Protocol Last Admin: 06/10/19 10:23 Dose: 100 mls/hr Levothyroxine Sodium (Synthroid -) 100 mcg PO DAILY@0700 [facility] Last Admin: 06/10/19 06:20 Dose: 100 mcg Memantine (Namenda -) 5 mg PO BID [facility] Last Admin: 06/10/19 10:22 Dose: 5 mg Metoprolol Succinate (Toprol Xl -) 25 mg PO DAILY [facility] Last Admin: 06/10/19 10:13 Dose: Not Given Multivitamins/Minerals/Vitamin C (Tab-A-Vit -) 1 tab PO DAILY [facility] Last Admin: 06/10/19 10:22 Dose: 1 tab - Objective Vital Signs: Vital Signs Temperature 98 F 06/10/19 05:31 Pulse Rate 70 06/10/19 05:31 Respiratory Rate 20 06/10/19 05:31 Blood Pressure 108/41 L 06/10/19 05:31 O2 Sat by Pulse Oximetry (%) 100 06/09/19 20:57 Cardiovascular: Yes: S1, S2 Respiratory: Yes: Regular, CTA Bilaterally Gastrointestinal: Yes: Normal Bowel Sounds, Soft Labs: CBC, BMP 06/10/19 08:40 06/10/19 08:40 INR, PTT INR 2.69 (0.83-1.09) H 06/09/19 11:04 Problem List - Problems (1) Open leg wound Assessment/Plan: IV ABX WOUND CARE CONSULT Code(s): S81.809A - UNSPECIFIED OPEN WOUND, UNSPECIFIED LOWER LEG, INIT ENCNTR Qualifiers: Encounter type: subsequent encounter Laterality: unspecified laterality Qualified Code(s): S81.809D - Unspecified open wound, unspecified lower leg, subsequent encounter (2) Afib Assessment/Plan: COUMADIN AND MONITOR INR Code(s): I48.91 - UNSPECIFIED ATRIAL FIBRILLATION (3) Anemia Assessment/Plan: FOLLOW LEVELS Code(s): D64.9 - ANEMIA, UNSPECIFIED Qualifiers: Anemia type: B12 deficiency 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
[2019-06-10 10:51] LABS: INR 3.22 (0.83-1.09); PROTHROMBIN TIME (PATIENT) 38.5 SEC (9.7-13.0)
[2019-06-10] MEDS: ATORVASTATIN CA 40 MG TABLET (FP) PO SCH (21:48)
[2019-06-11] MEDS ORDERED: DEXTROSE 5%-WATER - 50 ML IVPB ONE ×3 (02:47→17:17)
[2019-06-11] MEDS ORDERED: PIPERACILLIN/TAZOBACTAM 3.375 GM VIAL IVPB ONE ×3 (02:47→17:17)
[2019-06-11] MEDS: PIPERACILLIN/TAZOB 3.375 GM 3.375 GM in DEXTROSE 5%-WATER - 50 ML IVPB SCH ×3 (02:53→17:23)
[2019-06-11] MEDS: LEVOTHYROXINE NA 100 MCG TABLET (FP) PO SCH (06:36)
[2019-06-11 09:00] LABS: INR 2.79 (0.83-1.09); PROTHROMBIN TIME (PATIENT) 33.3 SEC (9.7-13.0)
--- NOTE | 2019-06-11 10:08 | PN ---
Progress Note (short form) - Note Progress Note: VASCULAR SURGERY 89 yo female well know to Dr. Zaman as he treats her in the [facility] for her LLE ulcer down to the tendon. IV antibiotics. Alginate with EL to left lower ext daily. f/u CTA with bilat LE runoff Cr 1.0
[2019-06-11] MEDS: metoPROLOL SUCCINATE 25 MG TAB.SR.24H (FP) PO SCH (10:38)
[2019-06-11] MEDS: FAMOTIDINE 20 MG TABLET PO SCH (10:38)
[2019-06-11] MEDS: MULTIVITAMINS (DAILY MVI) TABLET (FP) PO SCH (10:38)
[2019-06-11] MEDS: ASCORBIC ACID 500 MG TABLET (FP) PO SCH (10:38)
[2019-06-11] MEDS: MEMANTINE HCL 5 MG TABLET (UD) PO SCH ×2 (10:38→21:57)
[2019-06-11] MEDS: COLLAGENASE CLOSTRIDIUM HIST. 30 GRAMS TUBE TP SCH (10:39)
--- NOTE | 2019-06-11 15:33 | PN ---
Progress Note, Physician Chief Complaint: Medicine coverage for Dr. Rowe/ Dr. Wadsworth BLE venous stasis LLE weaping MM anemia afib- on coumadin History of Present Illness: 89 year old female with PMH HTN, AFIB, DM, DVT, VENOUS STASIS, presents for ble venous stasis wounds. being seen by vascular and ID. receiving wound care, awaiting CTA. - Current Medication List Current Medications: Active Medications Ascorbic Acid (Vitamin C -) 500 mg PO DAILY [facility] Last Admin: 06/11/19 10:38 Dose: 500 mg Atorvastatin Calcium (Lipitor -) 40 mg PO HS [facility] Last Admin: 06/10/19 21:48 Dose: 40 mg Collagenase (Santyl -) 1 applic TP DAILY [facility]; Protocol Last Admin: 06/11/19 10:39 Dose: 1 applic Famotidine (Pepcid -) 20 mg PO DAILY [facility] Last Admin: 06/11/19 10:38 Dose: 20 mg Gabapentin (Neurontin -) 600 mg PO TID [facility] Piperacillin Sod/Tazobactam (Sod 3.375 gm/ Dextrose) 50 mls @ 100 mls/hr IVPB Q8H-IV [facility]; Protocol Last Admin: 06/11/19 10:38 Dose: 100 mls/hr Levothyroxine Sodium (Synthroid -) 100 mcg PO DAILY@0700 [facility] Last Admin: 06/11/19 06:36 Dose: 100 mcg Magnesium Oxide (Mag-Ox -) 400 mg PO BID [facility] Memantine (Namenda -) 5 mg PO BID [facility] Last Admin: 06/11/19 10:38 Dose: 5 mg Metoprolol Succinate (Toprol Xl -) 25 mg PO DAILY [facility] Last Admin: 06/11/19 10:38 Dose: 25 mg Midodrine (Proamatine -) 2.5 mg PO BID-MID [facility] Multivitamins/Minerals/Vitamin C (Tab-A-Vit -) 1 tab PO DAILY [facility] Last Admin: 06/11/19 10:38 Dose: 1 tab Non-Formulary Medication (Patient's Own Med) 1 each PO DAILY [facility] Potassium Chloride (K-Dur -) 20 meq PO DAILY [facility] Pramipexole Dihydrochloride (Mirapex -) 0.25 mg PO TID [facility] - Objective Vital Signs: Vital Signs Temperature 99.1 F 06/11/19 14:39 Pulse Rate 69 06/11/19 14:39 Respiratory Rate 20 06/11/19 14:39 Blood Pressure 126/51 L 06/11/19 14:39 O2 Sat by Pulse Oximetry (%) 97 06/10/19 21:00 Constitutional: Yes: No Distress, Calm HENT: Yes: WNL Cardiovascular: Yes: Other (irregularly irregular) Respiratory: Yes: WNL Gastrointestinal: Yes: Normal Bowel Sounds Extremities: Yes: Other (venous stasis wounds bilateral, LLE weaping) Edema: LLE: 2+, RLE: 2+ Integumentary: Yes: Venous Stasis Changes Wound/Incision: Yes: Dressing Dry and Intact Neurological: Yes: Alert, Weakness Labs: CBC, BMP 06/10/19 08:40 06/10/19 08:40 INR, PTT INR 2.79 (0.83-1.09) H 06/11/19 08:15 Problem List - Problems (1) Open leg wound Assessment/Plan: vascular following ID following wound care-local get wound culture LLE, weaping IV antbx awaiting CTA PT eval Problems reviewed: Yes Code(s): S81.809A - UNSPECIFIED OPEN WOUND, UNSPECIFIED LOWER LEG, INIT ENCNTR Qualifiers: Encounter type: subsequent encounter Laterality: unspecified laterality Qualified Code(s): S81.809D - Unspecified open wound, unspecified lower leg, subsequent encounter (2) Diabetes mellitus type 2 with complications Assessment/Plan: last a1c 5 not on meds hypoglycemic on morning labs continue to monitor vascular complications Problems reviewed: Yes Code(s): E11.8 - TYPE 2 DIABETES MELLITUS WITH UNSPECIFIED COMPLICATIONS (3) History of DVT (deep vein thrombosis) Assessment/Plan: on coumadin PT eval INR 2.79 Problems reviewed: Yes Code(s): Z86.718 - PERSONAL HISTORY OF OTHER VENOUS THROMBOSIS AND EMBOLISM (4) Afib Assessment/Plan: on coumadin and toprol xl monitor inr coumadin on hold, INR 3.22 yesterday, likely restart tomorrow at lowered dose Problems reviewed: Yes Code(s): I48.91 - UNSPECIFIED ATRIAL FIBRILLATION (5) Anemia Assessment/Plan: check iron and b12/folate levels trace blood in stool on coumadin Problems reviewed: Yes Code(s): D64.9 - ANEMIA, UNSPECIFIED Qualifiers: Anemia type: B12 deficiency 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 (6) CHF (congestive heart failure) Assessment/Plan: was on lasix last admit 2gm, 2L I & O last echo 2016, recheck check bnp Problems reviewed: Yes Code(s): I50.9 - HEART FAILURE, UNSPECIFIED (7) HTN (hypertension) Assessment/Plan: bp hypotensive was seen by cardiology last admit for hypotension, started on midodrine continue midodrine with parameters Problems reviewed: Yes Code(s): I10 - ESSENTIAL (PRIMARY) HYPERTENSION (8) Hypocalcemia Assessment/Plan: corrected calcium 9.5 Problems reviewed: Yes Code(s): E83.51 - HYPOCALCEMIA (9) Multiple myeloma Assessment/Plan: restart home revlimid f/u outpatient Problems reviewed: Yes Code(s): C90.00 - MULTIPLE MYELOMA NOT HAVING ACHIEVED REMISSION
[2019-06-11] MEDS: MIDODRINE HCL 2.5 MG TABLET PO SCH (17:23)
[2019-06-11] MEDS ORDERED: PT OWN MED DRAWER 7, Y5N ONE (17:37)
[2019-06-11 17:50] LABS: IRON SERUM 27 ug/dL (50-175); TOTAL IRON BINDING CAPACITY 149 ug/dL (250-450)
[2019-06-11 18:11] LABS: N-TERMINAL BNP 1212.4 pg/ml (5-450)
[2019-06-11] MEDS: ATORVASTATIN CA 40 MG TABLET (FP) PO SCH (21:57)
[2019-06-11] MEDS: GABAPENTIN 300 MG CAPSULE PO SCH (21:57)
[2019-06-11] MEDS: MAGNESIUM OXIDE 400 MG TABLET (FP) PO SCH (21:57)
[2019-06-11] MEDS: PRAMIPEXOLE DIHYDROCHLORIDE 0.25 MG TABLET PO SCH (21:58)
[2019-06-12] MEDS ORDERED: PIPERACILLIN/TAZOBACTAM 3.375 GM VIAL IVPB ONE ×3 (02:04→17:49)
[2019-06-12] MEDS ORDERED: DEXTROSE 5%-WATER - 50 ML IVPB ONE ×3 (02:05→17:49)
[2019-06-12] MEDS: PIPERACILLIN/TAZOB 3.375 GM 3.375 GM in DEXTROSE 5%-WATER - 50 ML IVPB SCH ×3 (02:13→17:53)
[2019-06-12] MEDS: GABAPENTIN 300 MG CAPSULE PO SCH ×3 (06:22→21:31)
[2019-06-12] MEDS: LEVOTHYROXINE NA 100 MCG TABLET (FP) PO SCH (06:22)
[2019-06-12] MEDS: PRAMIPEXOLE DIHYDROCHLORIDE 0.25 MG TABLET PO SCH ×3 (06:22→21:31)
--- NOTE | 2019-06-12 07:41 | PN ---
Progress Note (short form) - Note Progress Note: Surgery Patient awaiting CTA. continue current wound care/ POC Vascular surgery to follow
[2019-06-12] MEDS ORDERED: PT OWN MED DRAWER 7, Y5N ONE ×2 (09:35→17:49)
[2019-06-12] MEDS: metoPROLOL SUCCINATE 25 MG TAB.SR.24H (FP) PO SCH (09:45)
[2019-06-12] MEDS: ASCORBIC ACID 500 MG TABLET (FP) PO SCH (09:45)
[2019-06-12] MEDS: MEMANTINE HCL 5 MG TABLET (UD) PO SCH ×2 (09:46→21:31)
[2019-06-12] MEDS: MAGNESIUM OXIDE 400 MG TABLET (FP) PO SCH ×2 (09:46→21:31)
[2019-06-12] MEDS: FAMOTIDINE 20 MG TABLET PO SCH (09:46)
[2019-06-12] MEDS: MULTIVITAMINS (DAILY MVI) TABLET (FP) PO SCH (09:47)
[2019-06-12] MEDS: COLLAGENASE CLOSTRIDIUM HIST. 30 GRAMS TUBE TP SCH (09:47)
[2019-06-12] MEDS: POTASSIUM CHLORIDE TABS 10 MEQ TABLET.ER (FP) PO SCH (09:47)
[2019-06-12] MEDS: MIDODRINE HCL 2.5 MG TABLET PO SCH ×2 (09:47→17:53)
--- NOTE | 2019-06-12 15:46 | PN ---
Progress Note, Physician Chief Complaint: Medicine coverage for Dr. Rowe/ Dr. Wadsworth BLE venous stasis LLE weaping MM anemia afib- on coumadin no labs from today, even though ordered. awaiting INR to restart coumadin bnp elevated, was on 20 lasix q2d last admit getting echo done at bedside History of Present Illness: 89 year old female with PMH HTN, AFIB, DM, DVT, VENOUS STASIS, presents for ble venous stasis wounds. being seen by vascular and ID. receiving wound care, awaiting CTA. - Current Medication List Current Medications: Active Medications Ascorbic Acid (Vitamin C -) 500 mg PO DAILY [facility] Last Admin: 06/12/19 09:45 Dose: 500 mg Atorvastatin Calcium (Lipitor -) 40 mg PO HS [facility] Last Admin: 06/11/19 21:57 Dose: 40 mg Collagenase (Santyl -) 1 applic TP DAILY [facility]; Protocol Last Admin: 06/12/19 09:47 Dose: 1 applic Famotidine (Pepcid -) 20 mg PO DAILY [facility] Last Admin: 06/12/19 09:46 Dose: 20 mg Furosemide (Lasix -) 20 mg PO Q2D [facility] Gabapentin (Neurontin -) 600 mg PO TID [facility] Last Admin: 06/12/19 14:13 Dose: 600 mg Piperacillin Sod/Tazobactam (Sod 3.375 gm/ Dextrose) 50 mls @ 100 mls/hr IVPB Q8H-IV [facility]; Protocol Last Admin: 06/12/19 09:47 Dose: 100 mls/hr Levothyroxine Sodium (Synthroid -) 100 mcg PO DAILY@0700 [facility] Last Admin: 06/12/19 06:22 Dose: 100 mcg Magnesium Oxide (Mag-Ox -) 400 mg PO BID [facility] Last Admin: 06/12/19 09:46 Dose: 400 mg Memantine (Namenda -) 5 mg PO BID [facility] Last Admin: 06/12/19 09:46 Dose: 5 mg Metoprolol Succinate (Toprol Xl -) 25 mg PO DAILY [facility] Last Admin: 06/12/19 09:45 Dose: 25 mg Midodrine (Proamatine -) 2.5 mg PO BID-MID [facility] Last Admin: 06/12/19 09:47 Dose: 2.5 mg Multivitamins/Minerals/Vitamin C (Tab-A-Vit -) 1 tab PO DAILY [facility] Last Admin: 06/12/19 09:47 Dose: 1 tab Non-Formulary Medication (Patient's Own Med) 1 each PO DAILY [facility] Potassium Chloride (K-Dur -) 20 meq PO DAILY [facility] Last Admin: 06/12/19 09:47 Dose: 20 meq Pramipexole Dihydrochloride (Mirapex -) 0.25 mg PO TID [facility] Last Admin: 06/12/19 14:13 Dose: 0.25 mg - Objective Vital Signs: Vital Signs Temperature 97.4 F L 06/12/19 14:51 Pulse Rate 56 L 06/12/19 14:51 Respiratory Rate 06/12/19 14:51 Blood Pressure 112/68 06/12/19 14:51 O2 Sat by Pulse Oximetry (%) 97 06/12/19 09:00 Constitutional: Yes: No Distress HENT: Yes: Atraumatic, Normocephalic Neck: Yes: Supple Respiratory: Yes: Diminished Gastrointestinal: Yes: Normal Bowel Sounds, Soft Edema: LLE: 2+, RLE: 2+ Integumentary: Yes: Venous Stasis Changes Neurological: Yes: Alert Labs: CBC, BMP 06/10/19 08:40 06/10/19 08:40 INR, PTT INR 2.79 (0.83-1.09) H 06/11/19 08:15 Problem List - Problems (1) Open leg wound Assessment/Plan: vascular following ID following wound care-local get wound culture LLE, weaping ( not done, but ordered yesterday) IV antbx awaiting CTA PT eval- rec str when stable Problems reviewed: Yes Code(s): S81.809A - UNSPECIFIED OPEN WOUND, UNSPECIFIED LOWER LEG, INIT ENCNTR Qualifiers: Encounter type: subsequent encounter Laterality: unspecified laterality Qualified Code(s): S81.809D - Unspecified open wound, unspecified lower leg, subsequent encounter (2) Diabetes mellitus type 2 with complications Assessment/Plan: last a1c 5 not on meds hypoglycemic on morning labs continue to monitor vascular complications Problems reviewed: Yes Code(s): E11.8 - TYPE 2 DIABETES MELLITUS WITH UNSPECIFIED COMPLICATIONS (3) History of DVT (deep vein thrombosis) Assessment/Plan: on coumadin PT eval INR 2.79 yesterday no INR drawn today even though ordered Code(s): Z86.718 - PERSONAL HISTORY OF OTHER VENOUS THROMBOSIS AND EMBOLISM (4) Afib Assessment/Plan: on coumadin and toprol xl monitor inr coumadin on hold, INR needs to be drawn Code(s): I48.91 - UNSPECIFIED ATRIAL FIBRILLATION (5) Anemia Assessment/Plan: check iron and b12/folate levels- noted, will start iv venofer trace blood in stool on coumadin Code(s): D64.9 - ANEMIA, UNSPECIFIED Qualifiers: Anemia type: B12 deficiency 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 (6) CHF (congestive heart failure) Assessment/Plan: was on lasix last admit, will restart 20 q2d 2gm, 2L I & O last echo 2016, pending results check bnp >1k Code(s): I50.9 - HEART FAILURE, UNSPECIFIED (7) HTN (hypertension) Assessment/Plan: bp hypotensive was seen by cardiology last admit for hypotension, started on midodrine continue midodrine with parameters Code(s): I10 - ESSENTIAL (PRIMARY) HYPERTENSION (8) Hypocalcemia Assessment/Plan: corrected calcium 9.5 Code(s): E83.51 - HYPOCALCEMIA (9) Multiple myeloma Assessment/Plan: restart home revlimid f/u outpatient Code(s): C90.00 - MULTIPLE MYELOMA NOT HAVING ACHIEVED REMISSION
[2019-06-12] MEDS: FUROSEMIDE 20 MG TABLET (FP) PO SCH (16:31)
[2019-06-12] MEDS ORDERED: IRON SUCROSE INJECTION 100 MG in SODIUM CHLORIDE 95 ML IVPB ONE (17:00)
--- NOTE | 2019-06-12 17:16 | ECHO ---
Version: 1 Name: ARTURO VALDEZ Exam: Adult Echocardiogram Study Date: 06/12/2019, 1:38 PM Age: 89 Years MMode/2D Measurements & Calculations IVSd: 0.60 cm LVIDs: 3.6 cm LVIDd: 5.2 cm LVPWd: 0.87 cm ACS: 1.84 cm Ao root diam: 3.4 cm LA dimension: 3.3 cm Doppler Measurements & Calculations MV E max ramos: 61.0 cm/sec Med E/e': 13.9 MV A max ramos: 103.2 cm/sec Med Peak E' Ramos: 4.4 cm/sec MV E/A: 0.59 Lat E/e': 8.6 Lat Peak E' Ramos: 7.1 cm/sec MR max P.3 mmHg Ao max P.2 mmHg Ao mean P.3 mmHg Ao V2 max: 150.8 cm/sec AI P1/2t: 716.2 msec PI end-d ramos: 77.4 cm/sec TR max ramos: 212.7 cm/sec TR max P.1 mmHg Left Ventricle The left ventricular size, thickness and function are normal. Ejection Fraction = 65%. The transmitr al spectral Doppler flow pattern is suggestive of impaired LV relaxation. Right Ventricle The right ventricle is normal in size and function. Atria Normal left and right atrial size and function. Mitral Valve There is moderate mitral annular calcification. There is mild mitral regurgitation. Tricuspid Valve The tricuspid valve is not well visualized, but is grossly normal. There is mild tricuspid regurgita tion. Aortic Valve There is mild aortic sclerosis.;. Mild aortic regurgitation. Pulmonic Valve The pulmonic valve is not well seen, but is grossly normal. Great Vessels The aortic root is normal size. Normal aortic arch, descending and ascending aorta. Pericardium/Pleura There is no pericardial effusion. Summary Statements The left ventricular size, thickness and function are normal Ejection Fraction = 65%. The transmitral spectral Doppler flow pattern is suggestive of impaired LV relaxation. The right ventricle is normal in size and function. Normal left and right atrial size and function. There is moderate mitral annular calcification. There is mild mitral regurgitation. The tricuspid valve is not well visualized, but is grossly normal. There is mild tricuspid regurgitation. There is mild aortic sclerosis.; Mild aortic regurgitation. The pulmonic valve is not well seen, but is grossly normal. The aortic root is normal size. Normal aortic arch, descending and ascending aorta There is no pericardial effusion. Kd Foley 06/12/2019, 5:15 PM Ordering Physician: Jacqueline Duke Performed By: Mellisa Madrid
[2019-06-12 19:36] LABS: BASO % 0.7 % (0-2.0); HEMATOCRIT 29.9 % (32.4-45.2); HEMOGLOBIN 9.8 GM/dL (10.7-15.3); MCH 30.4 pg (25.7-33.7); MCHC 32.8 g/dl (32.0-36.0); MEAN CELL VOLUME 92.6 fl (80-96); MEAN PLT VOLUME 9.1 fl (7.5-11.1); MONO % 13.6 % (3.8-10.2); NEUT % 71.7 % (42.8-82.8); PLATELET COUNT 233 K/MM3 (134-434); RBC 3.22 M/mm3 (3.60-5.2); RDW 19.2 % (11.6-15.6); WHITE BLOOD COUNT 5.3 K/mm3 (4.0-10.0)
[2019-06-12 19:48] LABS: INR 2.67 (0.83-1.09); PROTHROMBIN TIME (PATIENT) 31.8 SEC (9.7-13.0)
[2019-06-12 20:01] LABS: ALBUMIN 1.7 g/dl (3.4-5.0); BILIRUBIN,TOTAL 0.6 mg/dL (0.2-1); BLOOD UREA NITROGEN 6.8 mg/dL (7-18); CALCIUM 8.1 mg/dL (8.5-10.1); CREATININE 0.9 mg/dL (0.55-1.3); POTASSIUM 3.9 mmol/L (3.5-5.1)
[2019-06-12] MEDS: ATORVASTATIN CA 40 MG TABLET (FP) PO SCH (21:31)
[2019-06-12] MEDS ORDERED: MUPIROCIN 2% TOPICAL OINTMENT FOR DECOLONIZATION NS SCH (22:00)
[2019-06-13] MEDS ORDERED: DEXTROSE 5%-WATER - 50 ML IVPB ONE ×3 (02:06→17:03)
[2019-06-13] MEDS ORDERED: PIPERACILLIN/TAZOBACTAM 3.375 GM VIAL IVPB ONE ×3 (02:06→17:03)
[2019-06-13] MEDS: PIPERACILLIN/TAZOB 3.375 GM 3.375 GM in DEXTROSE 5%-WATER - 50 ML IVPB SCH ×5 (02:10→17:10)
[2019-06-13] MEDS: LEVOTHYROXINE NA 100 MCG TABLET (FP) PO SCH (06:23)
[2019-06-13] MEDS: PRAMIPEXOLE DIHYDROCHLORIDE 0.25 MG TABLET PO SCH ×3 (06:23→21:08)
[2019-06-13] MEDS: GABAPENTIN 300 MG CAPSULE PO SCH ×3 (06:23→21:06)
[2019-06-13] MEDS: POTASSIUM CHLORIDE TABS 10 MEQ TABLET.ER (FP) PO SCH (09:29)
[2019-06-13] MEDS: MEMANTINE HCL 5 MG TABLET (UD) PO SCH ×2 (09:29→21:08)
[2019-06-13] MEDS: MULTIVITAMINS (DAILY MVI) TABLET (FP) PO SCH (09:29)
[2019-06-13] MEDS: MAGNESIUM OXIDE 400 MG TABLET (FP) PO SCH ×2 (09:29→21:06)
[2019-06-13] MEDS: metoPROLOL SUCCINATE 25 MG TAB.SR.24H (FP) PO SCH (09:29)
[2019-06-13] MEDS: FAMOTIDINE 20 MG TABLET PO SCH ×3 (09:29→21:25)
[2019-06-13] MEDS: ASCORBIC ACID 500 MG TABLET (FP) PO SCH (09:29)
--- NOTE | 2019-06-13 09:58 | PN ---
Progress Note (short form) - Note Progress Note: VASCULAR Pt continues to await CTA. Spoke with RN believes, delay was due to IV issues. Pt is scheduled for CTA today Will follow up study for surgical plan Discussed with Dr. Zaman
[2019-06-13] MEDS: COLLAGENASE CLOSTRIDIUM HIST. 30 GRAMS TUBE TP SCH (10:11)
[2019-06-13] MEDS: MIDODRINE HCL 2.5 MG TABLET PO SCH ×2 (10:11→17:11)
[2019-06-13 11:20] LABS: BASO % 1.1 % (0-2.0); HEMATOCRIT 33.4 % (32.4-45.2); HEMOGLOBIN 10.5 GM/dL (10.7-15.3); LYMPH % 9.1 % (8-40); MCH 29.9 pg (25.7-33.7); MCHC 31.5 g/dl (32.0-36.0); MEAN CELL VOLUME 94.9 fl (80-96); MEAN PLT VOLUME 8.8 fl (7.5-11.1); MONO % 16.3 % (3.8-10.2); NEUT % 70.5 % (42.8-82.8); PLATELET COUNT 209 K/MM3 (134-434); RBC 3.52 M/mm3 (3.60-5.2); RDW 19.8 % (11.6-15.6); WHITE BLOOD COUNT 5.3 K/mm3 (4.0-10.0)
[2019-06-13] MEDS ORDERED: PT OWN MED DRAWER 7, Y5N ONE ×3 (12:09→17:03)
--- NOTE | 2019-06-13 14:22 | PN ---
Progress Note, Physician Chief Complaint: Medicine coverage for Dr. Rowe/ Dr. Wadsworth BLE venous stasis LLE weaping MM anemia afib- on coumadin labs being drawn at bedside denies complaints stage 2 buttocks ulcer awaiting IV access for CTA from last week History of Present Illness: 89 year old female with PMH HTN, AFIB, DM, DVT, VENOUS STASIS, presents for ble venous stasis wounds. being seen by vascular and ID. receiving wound care, awaiting CTA. - Current Medication List Current Medications: Active Medications Ascorbic Acid (Vitamin C -) 500 mg PO DAILY [facility] Last Admin: 06/13/19 09:29 Dose: 500 mg Atorvastatin Calcium (Lipitor -) 40 mg PO HS [facility] Last Admin: 06/12/19 21:31 Dose: 40 mg Collagenase (Santyl -) 1 applic TP DAILY [facility]; Protocol Last Admin: 06/13/19 10:11 Dose: 1 applic Famotidine (Pepcid -) 20 mg PO DAILY [facility] Last Admin: 06/13/19 09:29 Dose: 20 mg Furosemide (Lasix -) 20 mg PO Q2D [facility] Last Admin: 06/12/19 16:31 Dose: 20 mg Gabapentin (Neurontin -) 600 mg PO TID [facility] Last Admin: 06/13/19 14:12 Dose: Not Given Piperacillin Sod/Tazobactam (Sod 3.375 gm/ Dextrose) 50 mls @ 100 mls/hr IVPB Q8H-IV [facility]; Protocol Last Admin: 06/13/19 12:19 Dose: 100 mls/hr Levothyroxine Sodium (Synthroid -) 100 mcg PO DAILY@0700 [facility] Last Admin: 06/13/19 06:23 Dose: 100 mcg Magnesium Oxide (Mag-Ox -) 400 mg PO BID [facility] Last Admin: 06/13/19 09:29 Dose: 400 mg Memantine (Namenda -) 5 mg PO BID [facility] Last Admin: 06/13/19 09:29 Dose: 5 mg Metoprolol Succinate (Toprol Xl -) 25 mg PO DAILY [facility] Last Admin: 06/13/19 09:29 Dose: 25 mg Midodrine (Proamatine -) 2.5 mg PO BID-MID [facility] Last Admin: 06/13/19 10:11 Dose: 2.5 mg Multivitamins/Minerals/Vitamin C (Tab-A-Vit -) 1 tab PO DAILY [facility] Last Admin: 06/13/19 09:29 Dose: 1 tab Mupirocin (Bactroban Ointment (For Decolonization) -) 1 applic NS BID [facility] Stop: 06/17/19 21:59 Non-Formulary Medication (Patient's Own Med) 1 each PO DAILY [facility] Potassium Chloride (K-Dur -) 20 meq PO DAILY [facility] Last Admin: 06/13/19 09:29 Dose: 20 meq Pramipexole Dihydrochloride (Mirapex -) 0.25 mg PO TID [facility] Last Admin: 06/13/19 14:13 Dose: 0.25 mg - Objective Vital Signs: Vital Signs Temperature 97.6 F 06/13/19 06:00 Pulse Rate 64 06/13/19 06:00 Respiratory Rate 20 06/13/19 06:00 Blood Pressure 117/56 L 06/13/19 06:00 O2 Sat by Pulse Oximetry (%) 97 06/13/19 09:00 Constitutional: Yes: No Distress, Calm HENT: Yes: Atraumatic, Normocephalic Neck: Yes: Supple Respiratory: Yes: WNL Gastrointestinal: Yes: WNL, Normal Bowel Sounds Integumentary: Yes: Pressure Ulcer, Venous Stasis Changes Wound/Incision: Yes: Dressing Dry and Intact Neurological: Yes: Alert Labs: CBC, BMP 06/13/19 11:00 INR, PTT INR 2.67 (0.83-1.09) H 06/12/19 18:30 Problem List - Problems (1) Open leg wound Assessment/Plan: vascular following ID following wound care-local get wound culture LLE, weaping - pending IV antbx awaiting CTA PT eval- rec str when stable Code(s): S81.809A - UNSPECIFIED OPEN WOUND, UNSPECIFIED LOWER LEG, INIT ENCNTR Qualifiers: Encounter type: subsequent encounter Laterality: unspecified laterality Qualified Code(s): S81.809D - Unspecified open wound, unspecified lower leg, subsequent encounter (2) Diabetes mellitus type 2 with complications Assessment/Plan: last a1c 5 not on meds continue to monitor vascular complications Code(s): E11.8 - TYPE 2 DIABETES MELLITUS WITH UNSPECIFIED COMPLICATIONS (3) History of DVT (deep vein thrombosis) Assessment/Plan: on coumadin-restart PT eval monitor inr Code(s): Z86.718 - PERSONAL HISTORY OF OTHER VENOUS THROMBOSIS AND EMBOLISM (4) Afib Assessment/Plan: on coumadin and toprol xl monitor inr Code(s): I48.91 - UNSPECIFIED ATRIAL FIBRILLATION (5) Anemia Assessment/Plan: check iron and b12/folate levels- noted, will start iv venofer trace blood in stool on coumadin Code(s): D64.9 - ANEMIA, UNSPECIFIED Qualifiers: Anemia type: B12 deficiency 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 (6) CHF (congestive heart failure) Assessment/Plan: was on lasix last admit, will restart 20 q2d 2gm, 2L I & O last echo 2016, echo done this admit ef 65%, diastolic dysfunction check bnp >1k Code(s): I50.9 - HEART FAILURE, UNSPECIFIED Qualifiers: Heart failure type: diastolic (7) HTN (hypertension) Assessment/Plan: bp hypotensive was seen by cardiology last admit for hypotension, started on midodrine continue midodrine with parameters Code(s): I10 - ESSENTIAL (PRIMARY) HYPERTENSION (8) Hypocalcemia Assessment/Plan: corrected calcium 9.5 Code(s): E83.51 - HYPOCALCEMIA (9) Multiple myeloma Assessment/Plan: restart home revlimid f/u outpatient Code(s): C90.00 - MULTIPLE MYELOMA NOT HAVING ACHIEVED REMISSION
[2019-06-13 14:27] LABS: INR 2.89 (0.83-1.09); PROTHROMBIN TIME (PATIENT) 34.5 SEC (9.7-13.0)
[2019-06-13 14:45] LABS: ALBUMIN 1.6 g/dl (3.4-5.0); BILIRUBIN,TOTAL 0.5 mg/dL (0.2-1); BLOOD UREA NITROGEN 7.3 mg/dL (7-18); CALCIUM 8.2 mg/dL (8.5-10.1); CREATININE 0.9 mg/dL (0.55-1.3); POTASSIUM 3.9 mmol/L (3.5-5.1)
[2019-06-13] MEDS ORDERED: WARFARIN NA 2 MG TABLET (UD) PO SCH (18:00)
[2019-06-13] MEDS: ATORVASTATIN CA 40 MG TABLET (FP) PO SCH (21:07)
[2019-06-14] MEDS ORDERED: DEXTROSE 5%-WATER - 50 ML IVPB ONE ×2 (02:45→10:09)
[2019-06-14] MEDS ORDERED: PIPERACILLIN/TAZOBACTAM 3.375 GM VIAL IVPB ONE ×2 (02:45→10:09)
[2019-06-14] MEDS: PIPERACILLIN/TAZOB 3.375 GM 3.375 GM in DEXTROSE 5%-WATER - 50 ML IVPB SCH ×2 (02:49→10:13)
[2019-06-14] MEDS: PRAMIPEXOLE DIHYDROCHLORIDE 0.25 MG TABLET PO SCH ×3 (06:31→22:00)
[2019-06-14] MEDS: GABAPENTIN 300 MG CAPSULE PO SCH ×3 (06:31→22:00)
[2019-06-14] MEDS: LEVOTHYROXINE NA 100 MCG TABLET (FP) PO SCH (06:31)
[2019-06-14 08:33] LABS: EOS % 1.5 % (0-4.5); HEMATOCRIT 28.9 % (32.4-45.2); HEMOGLOBIN 9.6 GM/dL (10.7-15.3); LYMPH % 13.1 % (8-40); MCH 30.3 pg (25.7-33.7); MCHC 33.2 g/dl (32.0-36.0); MEAN CELL VOLUME 91.2 fl (80-96); MEAN PLT VOLUME 8.7 fl (7.5-11.1); NEUT % 70.4 % (42.8-82.8); PLATELET COUNT 228 K/MM3 (134-434); RBC 3.16 M/mm3 (3.60-5.2); WHITE BLOOD COUNT 4.9 K/mm3 (4.0-10.0)
[2019-06-14 08:46] LABS: INR 2.98 (0.83-1.09); PROTHROMBIN TIME (PATIENT) 35.6 SEC (9.7-13.0)
[2019-06-14 09:05] LABS: ALBUMIN 1.7 g/dl (3.4-5.0); BILIRUBIN,TOTAL 0.7 mg/dL (0.2-1); BLOOD UREA NITROGEN 5.4 mg/dL (7-18); CALCIUM 8.6 mg/dL (8.5-10.1); CREATININE 0.9 mg/dL (0.55-1.3); POTASSIUM 3.6 mmol/L (3.5-5.1); TOT PROT 5.3 g/dl (6.4-8.2)
[2019-06-14] MEDS: MULTIVITAMINS (DAILY MVI) TABLET (FP) PO SCH (10:13)
[2019-06-14] MEDS: POTASSIUM CHLORIDE TABS 10 MEQ TABLET.ER (FP) PO SCH (10:13)
[2019-06-14] MEDS: MEMANTINE HCL 5 MG TABLET (UD) PO SCH ×2 (10:13→22:00)
[2019-06-14] MEDS: MAGNESIUM OXIDE 400 MG TABLET (FP) PO SCH ×2 (10:13→22:00)
[2019-06-14] MEDS: ASCORBIC ACID 500 MG TABLET (FP) PO SCH (10:13)
[2019-06-14] MEDS: FUROSEMIDE 20 MG TABLET (FP) PO SCH (10:13)
[2019-06-14] MEDS: FAMOTIDINE 20 MG TABLET PO SCH (10:13)
[2019-06-14] MEDS: metoPROLOL SUCCINATE 25 MG TAB.SR.24H (FP) PO SCH (10:14)
[2019-06-14] MEDS: MIDODRINE HCL 2.5 MG TABLET PO SCH ×2 (10:15→17:26)
[2019-06-14] MEDS ORDERED: PT OWN MED DRAWER 7, Y5N ONE ×2 (10:15→17:25)
[2019-06-14] MEDS: COLLAGENASE CLOSTRIDIUM HIST. 30 GRAMS TUBE TP SCH (14:13)
--- NOTE | 2019-06-14 15:01 | PN ---
Progress Note, Physician Chief Complaint: Medicine coverage for Dr. Rowe/ Dr. Wadsworth BLE venous stasis LLE weaping MM anemia afib- on coumadin stage 2 buttocks ulcer awaiting IV access for CTA from last week- per RN needs picc/midline Left leg prelim gnb, staph- on zosyn History of Present Illness: 89 year old female with PMH HTN, AFIB, DM, DVT, VENOUS STASIS, presents for ble venous stasis wounds. being seen by vascular and ID. receiving wound care, awaiting CTA. - Current Medication List Current Medications: Active Medications Ascorbic Acid (Vitamin C -) 500 mg PO DAILY [facility] Last Admin: 06/14/19 10:13 Dose: 500 mg Atorvastatin Calcium (Lipitor -) 40 mg PO HS [facility] Last Admin: 06/13/19 21:07 Dose: 40 mg Collagenase (Santyl -) 1 applic TP DAILY [facility]; Protocol Last Admin: 06/14/19 14:13 Dose: 1 applic Famotidine (Pepcid -) 20 mg PO DAILY [facility] Last Admin: 06/14/19 10:13 Dose: 20 mg Furosemide (Lasix -) 20 mg PO Q2D [facility] Last Admin: 06/14/19 10:13 Dose: 20 mg Gabapentin (Neurontin -) 600 mg PO TID [facility] Last Admin: 06/14/19 14:10 Dose: 600 mg Piperacillin Sod/Tazobactam (Sod 3.375 gm/ Dextrose) 50 mls @ 100 mls/hr IVPB Q8H-IV [facility]; Protocol Last Admin: 06/14/19 10:13 Dose: 100 mls/hr Levothyroxine Sodium (Synthroid -) 100 mcg PO DAILY@0700 [facility] Last Admin: 06/14/19 06:31 Dose: 100 mcg Magnesium Oxide (Mag-Ox -) 400 mg PO BID [facility] Last Admin: 06/14/19 10:13 Dose: 400 mg Memantine (Namenda -) 5 mg PO BID [facility] Last Admin: 06/14/19 10:13 Dose: 5 mg Metoprolol Succinate (Toprol Xl -) 25 mg PO DAILY [facility] Last Admin: 06/14/19 10:14 Dose: 25 mg Midodrine (Proamatine -) 2.5 mg PO BID-MID [facility] Last Admin: 06/14/19 10:15 Dose: 2.5 mg Multivitamins/Minerals/Vitamin C (Tab-A-Vit -) 1 tab PO DAILY [facility] Last Admin: 06/14/19 10:13 Dose: 1 tab Non-Formulary Medication (Patient's Own Med) 1 each PO DAILY [facility] Potassium Chloride (K-Dur -) 20 meq PO DAILY [facility] Last Admin: 06/14/19 10:13 Dose: 20 meq Pramipexole Dihydrochloride (Mirapex -) 0.25 mg PO TID [facility] Last Admin: 06/14/19 14:10 Dose: 0.25 mg Warfarin Sodium (Coumadin -) 2 mg PO DAILY@1800 [facility] Last Admin: 06/13/19 17:11 Dose: 2 mg - Objective Vital Signs: Vital Signs Temperature 97.8 F 06/14/19 10:00 Pulse Rate 61 06/14/19 10:00 Respiratory Rate 20 06/14/19 10:00 Blood Pressure 112/47 L 06/14/19 10:00 O2 Sat by Pulse Oximetry (%) 97 06/13/19 21:00 Constitutional: Yes: No Distress, Calm Neck: Yes: Supple Cardiovascular: Yes: Regular Rate and Rhythm Respiratory: Yes: WNL Gastrointestinal: Yes: Normal Bowel Sounds, Soft Musculoskeletal: Yes: Muscle Weakness Extremities: Yes: Other Edema: LLE: 1+, RLE: 1+ Integumentary: Yes: Pressure Ulcer, Venous Stasis Changes Neurological: Yes: Alert Labs: CBC, BMP 06/14/19 07:58 06/14/19 07:58 INR, PTT INR 2.98 (0.83-1.09) H 06/14/19 07:58 Problem List - Problems (1) Open leg wound Assessment/Plan: vascular following ID following wound care-local get wound culture LLE, weaping - pending- prelim gnb, staph IV antbx awaiting CTA- ordered picc PT eval- rec str when stable Code(s): S81.809A - UNSPECIFIED OPEN WOUND, UNSPECIFIED LOWER LEG, INIT ENCNTR Qualifiers: Encounter type: subsequent encounter Laterality: unspecified laterality Qualified Code(s): S81.809D - Unspecified open wound, unspecified lower leg, subsequent encounter (2) Diabetes mellitus type 2 with complications Assessment/Plan: last a1c 5 not on meds continue to monitor vascular complications Code(s): E11.8 - TYPE 2 DIABETES MELLITUS WITH UNSPECIFIED COMPLICATIONS (3) History of DVT (deep vein thrombosis) Assessment/Plan: on coumadin-inr 2.98 hold tonight PT eval monitor inr Code(s): Z86.718 - PERSONAL HISTORY OF OTHER VENOUS THROMBOSIS AND EMBOLISM (4) Afib Assessment/Plan: on coumadin and toprol xl monitor inr Code(s): I48.91 - UNSPECIFIED ATRIAL FIBRILLATION (5) Anemia Assessment/Plan: check iron and b12/folate levels- noted, will start iv venofer trace blood in stool on coumadin Code(s): D64.9 - ANEMIA, UNSPECIFIED Qualifiers: Anemia type: B12 deficiency 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 (6) CHF (congestive heart failure) Assessment/Plan: was on lasix last admit, will restart 20 q2d 2gm, 2L I & O last echo 2017, echo done this admit ef 65%, diastolic dysfunction check bnp >1k Code(s): I50.9 - HEART FAILURE, UNSPECIFIED Qualifiers: Heart failure type: diastolic (7) HTN (hypertension) Assessment/Plan: bp hypotensive was seen by cardiology last admit for hypotension, started on midodrine continue midodrine with parameters Code(s): I10 - ESSENTIAL (PRIMARY) HYPERTENSION (8) Multiple myeloma Assessment/Plan: restart home revlimid f/u outpatient Code(s): C90.00 - MULTIPLE MYELOMA NOT HAVING ACHIEVED REMISSION
[2019-06-14] MEDS: AMOX TR/POT CLAV 875MG/125MG TABLETS (FP) PO SCH (17:26)
[2019-06-14] MEDS: ATORVASTATIN CA 40 MG TABLET (FP) PO SCH (22:00)
[2019-06-15] MEDS: LEVOTHYROXINE NA 100 MCG TABLET (FP) PO SCH (06:19)
[2019-06-15] MEDS: GABAPENTIN 300 MG CAPSULE PO SCH ×3 (06:19→21:39)
[2019-06-15] MEDS: PRAMIPEXOLE DIHYDROCHLORIDE 0.25 MG TABLET PO SCH ×3 (06:19→21:39)
[2019-06-15 08:11] LABS: BASO % 1.9 % (0-2.0); EOS % 1.4 % (0-4.5); HEMATOCRIT 27.2 % (32.4-45.2); HEMOGLOBIN 8.9 GM/dL (10.7-15.3); MCH 30.3 pg (25.7-33.7); MCHC 32.9 g/dl (32.0-36.0); MEAN CELL VOLUME 92.2 fl (80-96); MEAN PLT VOLUME 8.8 fl (7.5-11.1); MONO % 16.6 % (3.8-10.2); NEUT % 67.1 % (42.8-82.8); PLATELET COUNT 239 K/MM3 (134-434); RBC 2.94 M/mm3 (3.60-5.2); RDW 18.9 % (11.6-15.6); WHITE BLOOD COUNT 4.5 K/mm3 (4.0-10.0)
[2019-06-15] MEDS: AMOX TR/POT CLAV 875MG/125MG TABLETS (FP) PO SCH ×2 (08:15→17:56)
[2019-06-15 08:44] LABS: INR 2.89 (0.83-1.09); PROTHROMBIN TIME (PATIENT) 34.5 SEC (9.7-13.0)
[2019-06-15 08:45] LABS: ALBUMIN 1.6 g/dl (3.4-5.0); BILIRUBIN,TOTAL 0.5 mg/dL (0.2-1); BLOOD UREA NITROGEN 6.7 mg/dL (7-18); CALCIUM 8.5 mg/dL (8.5-10.1); CREATININE 0.8 mg/dL (0.55-1.3); POTASSIUM 3.6 mmol/L (3.5-5.1); TOT PROT 4.8 g/dl (6.4-8.2)
[2019-06-15] MEDS: POTASSIUM CHLORIDE TABS 10 MEQ TABLET.ER (FP) PO SCH (09:15)
[2019-06-15] MEDS: FAMOTIDINE 20 MG TABLET PO SCH (09:15)
[2019-06-15] MEDS: metoPROLOL SUCCINATE 25 MG TAB.SR.24H (FP) PO SCH (09:15)
[2019-06-15] MEDS: MULTIVITAMINS (DAILY MVI) TABLET (FP) PO SCH (09:15)
[2019-06-15] MEDS: MAGNESIUM OXIDE 400 MG TABLET (FP) PO SCH ×2 (09:15→21:40)
[2019-06-15] MEDS: MEMANTINE HCL 5 MG TABLET (UD) PO SCH ×2 (09:15→21:39)
[2019-06-15] MEDS: ASCORBIC ACID 500 MG TABLET (FP) PO SCH (09:15)
[2019-06-15] MEDS: COLLAGENASE CLOSTRIDIUM HIST. 30 GRAMS TUBE TP SCH (09:16)
[2019-06-15] MEDS: MIDODRINE HCL 2.5 MG TABLET PO SCH ×2 (10:29→17:57)
--- NOTE | 2019-06-15 15:27 | PN ---
Progress Note, Physician Chief Complaint: Medicine coverage for Dr. Rowe/ Dr. Wadsworth BLE venous stasis LLE weaping MM anemia afib- on coumadin stage 2 buttocks ulcer PER RN- CTA CANCELED BY DR. RIOS Left leg prelim gnb, staph- on zosyn History of Present Illness: 89 year old female with PMH HTN, AFIB, DM, DVT, VENOUS STASIS, presents for ble venous stasis wounds. being seen by vascular and ID. receiving wound care, - Current Medication List Current Medications: Active Medications Amoxicillin/Clavulanate Potassium (Augmentin - 875mg Tablet) 1 tab PO BID@0800, 1730 [facility] Last Admin: 06/15/19 08:15 Dose: 1 tab Ascorbic Acid (Vitamin C -) 500 mg PO DAILY [facility] Last Admin: 06/15/19 09:15 Dose: 500 mg Atorvastatin Calcium (Lipitor -) 40 mg PO HS [facility] Last Admin: 06/14/19 22:00 Dose: 40 mg Collagenase (Santyl -) 1 applic TP DAILY [facility]; Protocol Last Admin: 06/15/19 09:16 Dose: 1 applic Famotidine (Pepcid -) 20 mg PO DAILY [facility] Last Admin: 06/15/19 09:15 Dose: 20 mg Furosemide (Lasix -) 20 mg PO Q2D [facility] Last Admin: 06/14/19 10:13 Dose: 20 mg Gabapentin (Neurontin -) 600 mg PO TID [facility] Last Admin: 06/15/19 13:03 Dose: 600 mg Levothyroxine Sodium (Synthroid -) 100 mcg PO DAILY@0700 [facility] Last Admin: 06/15/19 06:19 Dose: 100 mcg Magnesium Oxide (Mag-Ox -) 400 mg PO BID [facility] Last Admin: 06/15/19 09:15 Dose: 400 mg Memantine (Namenda -) 5 mg PO BID [facility] Last Admin: 06/15/19 09:15 Dose: 5 mg Metoprolol Succinate (Toprol Xl -) 25 mg PO DAILY [facility] Last Admin: 06/15/19 09:15 Dose: 25 mg Midodrine (Proamatine -) 2.5 mg PO BID-MID [facility] Last Admin: 06/15/19 10:29 Dose: 2.5 mg Multivitamins/Minerals/Vitamin C (Tab-A-Vit -) 1 tab PO DAILY [facility] Last Admin: 06/15/19 09:15 Dose: 1 tab Non-Formulary Medication (Patient's Own Med) 1 each PO DAILY [facility] Potassium Chloride (K-Dur -) 20 meq PO DAILY [facility] Last Admin: 06/15/19 09:15 Dose: 20 meq Pramipexole Dihydrochloride (Mirapex -) 0.25 mg PO TID [facility] Last Admin: 06/15/19 13:03 Dose: 0.25 mg Warfarin Sodium (Coumadin -) 2 mg PO DAILY@1800 [facility] Last Admin: 06/13/19 17:11 Dose: 2 mg - Objective Vital Signs: Vital Signs Temperature 98.0 F 06/15/19 07:51 Pulse Rate 70 06/15/19 07:51 Respiratory Rate 18 06/15/19 07:51 Blood Pressure 112/44 L 06/15/19 07:51 O2 Sat by Pulse Oximetry (%) 97 06/15/19 09:00 Constitutional: Yes: Well Nourished, No Distress, Poor Hygeine HENT: Yes: Atraumatic, Normocephalic Neck: Yes: Supple Cardiovascular: Yes: Regular Rate and Rhythm Respiratory: Yes: Regular Gastrointestinal: Yes: Normal Bowel Sounds, Soft Musculoskeletal: Yes: Muscle Weakness Edema: LLE: Trace, RLE: Trace Integumentary: Yes: Venous Stasis Changes Wound/Incision: Yes: Clean/Dry Neurological: Yes: Alert Labs: CBC, BMP 06/15/19 07:00 06/15/19 07:00 INR, PTT INR 2.89 (0.83-1.09) H 06/15/19 07:00 Problem List - Problems (1) Open leg wound Assessment/Plan: vascular following ID following- awaiting to see if need CVC for IV antbx, switched to po while awaiting, (has no access) wound care-local get wound culture LLE, weaping - pending- prelim gnb, staph IV antbx IR WILL NOT DO PICC PT eval- rec str when stable Code(s): S81.809A - UNSPECIFIED OPEN WOUND, UNSPECIFIED LOWER LEG, INIT ENCNTR Qualifiers: Encounter type: subsequent encounter Laterality: unspecified laterality Qualified Code(s): S81.809D - Unspecified open wound, unspecified lower leg, subsequent encounter (2) Diabetes mellitus type 2 with complications Assessment/Plan: last a1c 5 not on meds continue to monitor vascular complications Code(s): E11.8 - TYPE 2 DIABETES MELLITUS WITH UNSPECIFIED COMPLICATIONS (3) History of DVT (deep vein thrombosis) Assessment/Plan: on coumadin-inr 2.98 hold tonight PT eval monitor inr Code(s): Z86.718 - PERSONAL HISTORY OF OTHER VENOUS THROMBOSIS AND EMBOLISM (4) Afib Assessment/Plan: on coumadin and toprol xl monitor inr Code(s): I48.91 - UNSPECIFIED ATRIAL FIBRILLATION (5) Anemia Assessment/Plan: check iron and b12/folate levels- noted, will start iv venofer trace blood in stool on coumadin Code(s): D64.9 - ANEMIA, UNSPECIFIED Qualifiers: Anemia type: B12 deficiency 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 (6) CHF (congestive heart failure) Assessment/Plan: was on lasix last admit, will restart 20 q2d 2gm, 2L I & O last echo 2016, echo done this admit ef 65%, diastolic dysfunction check bnp >1k Code(s): I50.9 - HEART FAILURE, UNSPECIFIED Qualifiers: Heart failure type: diastolic (7) HTN (hypertension) Assessment/Plan: bp hypotensive was seen by cardiology last admit for hypotension, started on midodrine continue midodrine with parameters Code(s): I10 - ESSENTIAL (PRIMARY) HYPERTENSION (8) Multiple myeloma Assessment/Plan: restart home revlimid f/u outpatient Code(s): C90.00 - MULTIPLE MYELOMA NOT HAVING ACHIEVED REMISSION
--- NOTE | 2019-06-15 16:09 | PN ---
Progress Note, Physician History of Present Illness: AWAKE, CONFUSED OFFERS NO COMPLAINTS CHRONICALLY ILL APPEARING AFEBRILE WBC WNL WOUND C/S POLYMICROBIAL - Current Medication List Current Medications: Active Medications Amoxicillin/Clavulanate Potassium (Augmentin - 875mg Tablet) 1 tab PO BID@0800, 1730 [facility] Last Admin: 06/15/19 08:15 Dose: 1 tab Ascorbic Acid (Vitamin C -) 500 mg PO DAILY [facility] Last Admin: 06/15/19 09:15 Dose: 500 mg Atorvastatin Calcium (Lipitor -) 40 mg PO HS [facility] Last Admin: 06/14/19 22:00 Dose: 40 mg Collagenase (Santyl -) 1 applic TP DAILY [facility]; Protocol Last Admin: 06/15/19 09:16 Dose: 1 applic Famotidine (Pepcid -) 20 mg PO DAILY [facility] Last Admin: 06/15/19 09:15 Dose: 20 mg Furosemide (Lasix -) 20 mg PO Q2D [facility] Last Admin: 06/14/19 10:13 Dose: 20 mg Gabapentin (Neurontin -) 600 mg PO TID [facility] Last Admin: 06/15/19 13:03 Dose: 600 mg Levothyroxine Sodium (Synthroid -) 100 mcg PO DAILY@0700 [facility] Last Admin: 06/15/19 06:19 Dose: 100 mcg Magnesium Oxide (Mag-Ox -) 400 mg PO BID [facility] Last Admin: 06/15/19 09:15 Dose: 400 mg Memantine (Namenda -) 5 mg PO BID [facility] Last Admin: 06/15/19 09:15 Dose: 5 mg Metoprolol Succinate (Toprol Xl -) 25 mg PO DAILY [facility] Last Admin: 06/15/19 09:15 Dose: 25 mg Midodrine (Proamatine -) 2.5 mg PO BID-MID [facility] Last Admin: 06/15/19 10:29 Dose: 2.5 mg Multivitamins/Minerals/Vitamin C (Tab-A-Vit -) 1 tab PO DAILY [facility] Last Admin: 06/15/19 09:15 Dose: 1 tab Non-Formulary Medication (Patient's Own Med) 1 each PO DAILY [facility] Potassium Chloride (K-Dur -) 20 meq PO DAILY [facility] Last Admin: 06/15/19 09:15 Dose: 20 meq Pramipexole Dihydrochloride (Mirapex -) 0.25 mg PO TID [facility] Last Admin: 06/15/19 13:03 Dose: 0.25 mg Warfarin Sodium (Coumadin -) 2 mg PO DAILY@1800 [facility] Last Admin: 06/13/19 17:11 Dose: 2 mg - Objective Vital Signs: Vital Signs Temperature 98.9 F 06/15/19 15:25 Pulse Rate 64 06/15/19 15:25 Respiratory Rate 18 06/15/19 15:25 Blood Pressure 111/49 L 06/15/19 15:25 O2 Sat by Pulse Oximetry (%) 97 06/15/19 09:00 Constitutional: Yes: No Distress, Cachectic Eyes: Yes: Conjunctiva Clear Cardiovascular: Yes: Regular Rate and Rhythm, S1, S2 Respiratory: Yes: CTA Bilaterally Gastrointestinal: Yes: Normal Bowel Sounds, Soft. No: Tenderness Extremities: Yes: Other (DISTAL L LE WITH EXTENSIVE ULCERATION, SEROUS DRAINAGE) Labs: CBC, BMP 06/15/19 07:00 06/15/19 07:00 INR, PTT INR 2.89 (0.83-1.09) H 06/15/19 07:00 Assessment/Plan INFECTED L LE ULCER POLYMICROBIAL CONTINUE AUGMENTIN PO LOCAL WOUND CARE
--- NOTE | 2019-06-15 17:24 | PN ---
Progress Note (short form) - Note Progress Note: VAscular Surgery Pt seen and examined today. DResing changed. The left leg looks a lot better. The wounds are healing. Tendons which were once exposed, are now covered. Pt has a palpable popliteal pulse. No need for CTA at this time. Pathology of disease is venous in origin. Cont santyl/alginate with diana for compression. Will follow Anthony Zaman DO
[2019-06-15] MEDS ORDERED: PT OWN MED DRAWER 7, Y5N ONE (17:56)
[2019-06-15] MEDS: ATORVASTATIN CA 40 MG TABLET (FP) PO SCH (21:39)
[2019-06-16] MEDS: GABAPENTIN 300 MG CAPSULE PO SCH ×2 (05:36→13:22)
[2019-06-16] MEDS: PRAMIPEXOLE DIHYDROCHLORIDE 0.25 MG TABLET PO SCH ×2 (05:37→13:22)
[2019-06-16] MEDS: LEVOTHYROXINE NA 100 MCG TABLET (FP) PO SCH (06:03)
[2019-06-16] MEDS ORDERED: PT OWN MED DRAWER 7, Y5N ONE (08:08)
[2019-06-16] MEDS: AMOX TR/POT CLAV 875MG/125MG TABLETS (FP) PO SCH (08:11)
[2019-06-16 08:36] LABS: BASO % 2.7 % (0-2.0); EOS % 1.1 % (0-4.5); HEMATOCRIT 25.3 % (32.4-45.2); HEMOGLOBIN 8.6 GM/dL (10.7-15.3); LYMPH % 12.7 % (8-40); MCH 30.6 pg (25.7-33.7); MCHC 33.9 g/dl (32.0-36.0); MEAN CELL VOLUME 90.4 fl (80-96); MEAN PLT VOLUME 7.6 fl (7.5-11.1); MONO % 22.1 % (3.8-10.2); NEUT % 61.4 % (42.8-82.8); PLATELET COUNT 207 K/MM3 (134-434); RDW 18.8 % (11.6-15.6)
[2019-06-16 09:07] LABS: INR 2.04 (0.83-1.09); PROTHROMBIN TIME (PATIENT) 24.2 SEC (9.7-13.0)
[2019-06-16 09:17] LABS: ALBUMIN 1.7 g/dl (3.4-5.0); BILIRUBIN,TOTAL 0.4 mg/dL (0.2-1); BLOOD UREA NITROGEN 6.3 mg/dL (7-18); CALCIUM 8.4 mg/dL (8.5-10.1); CREATININE 0.7 mg/dL (0.55-1.3); POTASSIUM 3.6 mmol/L (3.5-5.1); TOT PROT 4.8 g/dl (6.4-8.2)
[2019-06-16] MEDS: MEMANTINE HCL 5 MG TABLET (UD) PO SCH (09:24)
[2019-06-16] MEDS: MIDODRINE HCL 2.5 MG TABLET PO SCH (09:24)
[2019-06-16] MEDS: FAMOTIDINE 20 MG TABLET PO SCH (09:25)
[2019-06-16] MEDS: FUROSEMIDE 20 MG TABLET (FP) PO SCH (09:25)
[2019-06-16] MEDS: metoPROLOL SUCCINATE 25 MG TAB.SR.24H (FP) PO SCH (09:25)
[2019-06-16] MEDS: ASCORBIC ACID 500 MG TABLET (FP) PO SCH (09:25)
[2019-06-16] MEDS: MULTIVITAMINS (DAILY MVI) TABLET (FP) PO SCH (09:25)
[2019-06-16] MEDS: POTASSIUM CHLORIDE TABS 10 MEQ TABLET.ER (FP) PO SCH (09:25)
[2019-06-16] MEDS: MAGNESIUM OXIDE 400 MG TABLET (FP) PO SCH (09:25)
[2019-06-16 10:35] VITALS: TEMP 98
[2019-06-16 10:36] LABS: ANISOCYTOSIS 1+; MACROCYTOSIS 0; OVALOCYTE 1+; PLATELET ESTIMATE NORMAL; TEAR DROP CELLS 1+
--- NOTE | 2019-06-16 10:39 | DS ---
Physical Examination Vital Signs: Vital Signs Temperature 98.0 F 06/16/19 10:00 Pulse Rate 64 06/16/19 10:00 Respiratory Rate 20 06/16/19 10:00 Blood Pressure 114/54 L 06/16/19 10:00 O2 Sat by Pulse Oximetry (%) 97 06/15/19 09:00 Findings/Remarks: Laboratory Last Values WBC 4.0 K/mm3 (4.0-10.0) 06/16/19 07:20 RBC 2.80 M/mm3 (3.60-5.2) L 06/16/19 07:20 Hgb 8.6 GM/dL (10.7-15.3) L 06/16/19 07:20 Hct 25.3 % (32.4-45.2) L 06/16/19 07:20 MCV 90.4 fl (80-96) 06/16/19 07:20 MCH 30.6 pg (25.7-33.7) 06/16/19 07:20 MCHC 33.9 g/dl (32.0-36.0) 06/16/19 07:20 RDW 18.8 % (11.6-15.6) H 06/16/19 07:20 Plt Count 207 K/MM3 (134-434) 06/16/19 07:20 MPV 7.6 fl (7.5-11.1) D 06/16/19 07:20 Absolute Neuts (auto) 2.4 K/mm3 (1.5-8.0) 06/16/19 07:20 Total Counted 100 06/08/19 18:20 Neutrophils % 61.4 % (42.8-82.8) 06/16/19 07:20 Neutrophils % (Manual) 61.0 % (42.8-82.8) 06/09/19 11:04 Band Neutrophils % 13.0 % 06/09/19 11:04 Lymphocytes % 12.7 % (8-40) 06/16/19 07:20 Lymphocytes % (Manual) 5.0 % (8-40) L D 06/09/19 11:04 Monocytes % 22.1 % (3.8-10.2) H 06/16/19 07:20 Monocytes % (Manual) 6 % (3.8-10.2) 06/09/19 11:04 Eosinophils % 1.1 % (0-4.5) 06/16/19 07:20 Eosinophils % (Manual) 5.0 % (0-4.5) H 06/09/19 11:04 Basophils % 2.7 % (0-2.0) H 06/16/19 07:20 Basophils % (Manual) 1.0 % (0-2.0) D 06/09/19 11:04 Myelocytes % (Man) 0 % (0-2) 06/09/19 11:04 Promyelocytes % (Man) 0 % (0-2) 06/09/19 11:04 Blast Cells % (Manual) 0 % (0-0) 06/09/19 11:04 Nucleated RBC % 0 % (0-0) 06/16/19 07:20 Metamyelocytes 1 % (0-2) 06/09/19 11:04 Hypochromia 0 06/09/19 11:04 Platelet Estimate Normal 06/09/19 11:04 Platelet Comment Present 06/09/19 11:04 Platelet Comment No clumping noted 06/08/19 18:20 Polychromasia 1+ 06/09/19 11:04 Poikilocytosis 2+ 06/09/19 11:04 Anisocytosis 1+ 06/09/19 11:04 Microcytosis 1+ 06/09/19 11:04 Macrocytosis 0 06/09/19 11:04 Spherocytes 1+ 06/09/19 11:04 Target Cells 1+ 06/09/19 11:04 Ovalocytes 1+ 06/09/19 11:04 Schistocytes 1+ 06/09/19 11:04 PT with INR 24.20 SEC (9.7-13.0) H 06/16/19 07:20 INR 2.04 (0.83-1.09) H 06/16/19 07:20 Sodium 141 mmol/L (136-145) 06/16/19 07:20 Potassium 3.6 mmol/L (3.5-5.1) 06/16/19 07:20 Chloride 108 mmol/L (98-107) H 06/16/19 07:20 Carbon Dioxide 28 mmol/L (21-32) 06/16/19 07:20 Anion Gap 5 MMOL/L (8-16) L 06/16/19 07:20 BUN 6.3 mg/dL (7-18) L 06/16/19 07:20 Creatinine 0.7 mg/dL (0.55-1.3) 06/16/19 07:20 Est GFR (CKD-EPI)AfAm 90.29 06/16/19 07:20 Est GFR (CKD-EPI)NonAf 77.90 06/16/19 07:20 POC Glucometer 68 UNITS (80-120) 06/10/19 16:56 Random Glucose 83 mg/dL (74-106) 06/16/19 07:20 Calcium 8.4 mg/dL (8.5-10.1) L 06/16/19 07:20 Iron 27 ug/dL (50-175) L 06/11/19 15:45 TIBC 149 ug/dL (250-450) L 06/11/19 15:45 Iron Saturation 18 % (17.5-39) 06/11/19 15:45 Unsaturated IBC 122 ug/dL (200-275) L 06/11/19 15:45 Total Bilirubin 0.4 mg/dL (0.2-1) 06/16/19 07:20 AST 17 U/L (15-37) 06/16/19 07:20 ALT 15 U/L (13-61) 06/16/19 07:20 Alkaline Phosphatase 85 U/L (45-117) 06/16/19 07:20 B-Natriuretic Peptide 1212.4 pg/ml (5-450) H 06/11/19 15:45 Total Protein 4.8 g/dl (6.4-8.2) L 06/16/19 07:20 Albumin 1.7 g/dl (3.4-5.0) L 06/16/19 07:20 Vitamin B12 3076 pg/ml (193-986) H 06/11/19 15:45 Serum Folate 25 ng/mL (3.1-17.5) H 06/11/19 15:45 Stool Occult Blood Trace (NEGATIVE) 06/10/19 14:52 Active Medications Generic Name Dose Route Start Last Admin Trade Name Freq PRN Reason Stop Dose Admin Amoxicillin/Clavulanate Potassium 1 tab 06/14/19 17:30 06/16/19 08:11 Augmentin - 875mg Tablet PO 1 tab BID@0800,1730 [facility] Administration Ascorbic Acid 500 mg 06/09/19 10:00 06/16/19 09:25 Vitamin C - PO 500 mg DAILY [facility] Administration Atorvastatin Calcium 40 mg 06/09/19 22:00 06/15/19 21:39 Lipitor - PO 40 mg HS [facility] Administration Collagenase 1 applic 06/10/19 10:00 06/15/19 09:16 Santyl - TP 1 applic DAILY [facility] Administration Protocol Famotidine 20 mg 06/10/19 10:00 06/16/19 09:25 Pepcid - PO 20 mg DAILY [facility] Administration Furosemide 20 mg 06/12/19 15:45 06/16/19 09:25 Lasix - PO 20 mg Q2D [facility] Administration Gabapentin 600 mg 06/11/19 22:00 06/16/19 05:36 Neurontin - PO 600 mg TID [facility] Administration Levothyroxine Sodium 100 mcg 06/09/19 07:00 06/16/19 06:03 Synthroid - PO 100 mcg DAILY@0700 [facility] Administration Magnesium Oxide 400 mg 06/11/19 22:00 06/16/19 09:25 Mag-Ox - PO 400 mg BID [facility] Administration Memantine 5 mg 06/08/19 22:45 06/16/19 09:24 Namenda - PO 5 mg BID [facility] Administration Metoprolol Succinate 25 mg 06/09/19 10:00 06/16/19 09:25 Toprol Xl - PO 25 mg DAILY [facility] Administration Midodrine 2.5 mg 06/11/19 18:00 06/16/19 09:24 Proamatine - PO 2.5 mg BID-MID [facility] Administration Multivitamins/Minerals/Vitamin C 1 tab 06/09/19 10:00 06/16/19 09:25 Tab-A-Vit - PO 1 tab DAILY [facility] Administration Non-Formulary Medication 1 each 06/12/19 10:00 Patient's Own Med PO DAILY [facility] Potassium Chloride 20 meq 06/12/19 10:00 06/16/19 09:25 K-Dur - PO 20 meq DAILY [facility] Administration Pramipexole Dihydrochloride 0.25 mg 06/11/19 22:00 06/16/19 05:37 Mirapex - PO 0.25 mg TID [facility] Administration Warfarin Sodium 2 mg 06/13/19 18:00 06/13/19 17:11 Coumadin - PO 2 mg DAILY@1800 [facility] Administration Microbiology 06/12/19 17:00 Leg - Left Lower Gram Stain - Final 06/12/19 17:00 Leg - Left Lower Wound Culture - Preliminary Proteus Species Group D Strep Or Entero Coccus Mr Daren Taylor Gram Negative Janusz 06/08/19 18:00 Blood - Peripheral Venous Blood Culture - Final NO GROWTH AFTER 5 DAYS INCUBATION 06/08/19 18:00 Blood - Peripheral Venous Blood Culture - Final NO GROWTH AFTER 5 DAYS INCUBATION 06/11/19 13:15 Nose MRSA Screen - Final S Aureus 06/11/19 13:15 Nares - Mrsa Screen - Right MRSA Screen - Final Mr Mercedes Aureus Constitutional: Yes: No Distress, Calm Eyes: Yes: Conjunctiva Clear HENT: Yes: Atraumatic Neck: Yes: Supple Cardiovascular: Yes: Regular Rate and Rhythm Respiratory: Yes: Regular, Diminished Gastrointestinal: Yes: Normal Bowel Sounds, Soft Renal/: Yes: Incontinence Musculoskeletal: Yes: Muscle Weakness Extremities: Yes: WNL Edema: Yes Integumentary: Yes: Venous Stasis Changes Wound/Incision: Yes: Dressing Dry and Intact Neurological: Yes: Alert, Confusion Psychiatric: Yes: Alert Labs: CBC, BMP 06/16/19 07:20 06/16/19 07:20 Discharge Summary Problems reviewed: Yes Reason For Visit: ATRIAL FIBRILLATION,CELLULITITS,OPEN WOUND LWR EXT Current Active Problems Diabetes mellitus type 2 with complications (Acute) Diabetes type 2, uncontrolled (Acute) History of DVT (deep vein thrombosis) (Acute) Open leg wound (Acute) Hospital Course: This is a 89 y/o woman with a PMHx of HTN, A-fib (Coumadin), DM, DVT (Coumadin) , Venous Stasis Wounds, Chronic BLE Wounds. Who presents to the ED from the Wound Care center for evaluation of worsening wounds, admission, IV antibitotics. The patient denies any acute symptoms but is unable to provide a coherent history- Dementia hx. Patient was evaluated by Vascular while inpatient. Plan was for patient to have CTA with runoff to monitor blood flow to lower extremity. Patient was pending PICC/midline placement for patient to receive contrast. Applied santyl and calcium alginate to lower extremity daily and ulcers improved. She is currently on PO antibiotic therapy. She will be returning to SNF when bed is available. Condition: Stable - Instructions Diet, Activity, Other Instructions: follow up with PCP 2 days after discharge follow up with Vascular Dr Zaman for management of chronic venous stasis ulcers daily dressing changes to bilateral lower extremities apply santyl/calcium alginate to wound daily and wrap with an EL bandage Augmentin BID x 7 days return to ER if develop severe pain, respiratory distress, chest pain, altered mental status Referrals: Tacos Rowe MD [Primary Care Provider] - Anthony Zaman DO [Staff Physician] - Disposition: NURSING HOME FACILITY - Home Medications Comprehensive Discharge Medication List: Ambulatory Orders Acetaminophen [Tylenol] 2 tab PO Q8H PRN 10/24/18 Atorvastatin Ca [Lipitor] 1 tab PO HS 10/24/18 Ferrous Sulfate [Feosol] 1 tab PO DAILY 10/24/18 Fluticasone Furoate [Arnuity Ellipta] 2 puff IH DAILY 10/24/18 Gabapentin 1 tab PO TID 10/24/18 Lenalidomide [Revlimid] 1 tab PO DAILY 10/24/18 Magnesium Oxide [Magnesium] 1 tab PO DAILY 10/24/18 Memantine HCl [Namenda -] 1 tab PO Q12H 10/24/18 Metoprolol Succinate [Toprol Xl] 25 mg PO DAILY 10/24/18 Multivitamin [Multiple Vitamins] 1 tab PO DAILY 10/24/18 Pramipexole Di-HCl [Mirapex] 1 tab PO TID 10/24/18 Warfarin Sodium [Coumadin] 6 mg PO HS 10/31/18 Famotidine [Pepcid -] 20 mg PO BID tablet 02/09/19 Levothyroxine [Synthroid -] 100 mcg PO DAILY@0700 tablet 02/09/19 Aa/Hydrolyzed Collagen, Whey [Lps 15-30 Liquid] 30 ml PO DAILY 05/15/19 Ascorbic Acid [Vitamin C] 500 mg PO DAILY 05/15/19 Lactobacillus Acidophilus [Acidophilus] 1 each PO ASDIR 05/15/19 Zinc Oxide 20% Topical Oint 1 applic TP Q8H 05/15/19 Memantine HCl [Namenda -] 5 mg PO BID tab 05/17/19 Potassium Chloride [K-Dur -] 20 meq PO DAILY tablet.er 05/17/19 levoFLOXacin [Levaquin -] 250 mg PO Q48H #7 tablet 05/17/19 Collagenase Clostridium Hist. [Santyl] 1 applic TP ASDIR 05/18/19 Midodrine HCl [Proamatine -] 2.5 mg PO BID-MID tablet 05/29/19 Warfarin Na [Coumadin -] 7 mg PO DAILY@1800 tablet 05/29/19 levoFLOXacin [Levaquin -] 250 mg PO DAILY@0600 tablet 05/29/19 Amox-Tr/K Cl [Augmentin 875-125mg Tablet -] 1 tab PO BID@0800,1730 7 Days tablet 06/16/19 Furosemide [Lasix -] 20 mg PO Q2D tablet 06/16/19 Gabapentin [Neurontin -] 600 mg PO TID capsule 06/16/19 Magnesium Oxide [Mag-Ox -] 400 mg PO BID tablet 06/16/19 Midodrine HCl [Proamatine -] 2.5 mg PO BID-MID tablet 06/16/19 Potassium Chloride [K-Dur -] 20 meq PO DAILY tablet.er 06/16/19 Pramipexole Dihydrochloride [Mirapex -] 0.25 mg PO TID tablet 06/16/19 Warfarin Na [Coumadin -] 2 mg PO DAILY@1800 tablet 06/16/19
[2019-06-16] MEDS: COLLAGENASE CLOSTRIDIUM HIST. 30 GRAMS TUBE TP SCH (13:22)
[2019-06-16 15:30] VITALS: BP 126/50; PULSE 69
== END 2019-06-16 15:48 | DRG 300 ==
LOC: JER 15:47 → JERBED 22:10 → J6S 06-09 02:27
PROVIDERS: ADMIT Internal Medicine; ATTEND Family Medicine
DX: I83.218 Varicose veins of right lower extremity with both ulcer of other part of lower extremity and inflammation (principal); C90.00 Multiple myeloma not having achieved remission; L97.909 Non-pressure chronic ulcer of unspecified part of unspecified lower leg with unspecified severity; I83.228 Varicose veins of left lower extremity with both ulcer of other part of lower extremity and inflammation; I48.0 Paroxysmal atrial fibrillation; S81.802A Unspecified open wound, left lower leg, initial encounter; E83.51 Hypocalcemia; D51.0 Vitamin B12 deficiency anemia due to intrinsic factor deficiency; I87.8 Other specified disorders of veins; A49.02 Methicillin resistant Staphylococcus aureus infection, unspecified site; I11.0 Hypertensive heart disease with heart failure; I50.9 Heart failure, unspecified; F03.90 Unspecified dementia, unspecified severity, without behavioral disturbance, psychotic disturbance, mood disturbance, and anxiety; E78.5 Hyperlipidemia, unspecified; I83.009 Varicose veins of unspecified lower extremity with ulcer of unspecified site
CPT/HCPCS: 36415; 80048; 80053; 82272; 82607; 82746; 82962; 83540; 83550; 83880; 85025; 85610; 87040; 87070; 87077; 87081; 87205; 93005; 93010; 93306-TC; 97116-GP; 97161-GP; 99285-25; G0463-25; J1756

== ENCOUNTER 2019-06-26 05:56 | Day surgery (SDC) | payer OTHER, BC, MEDICARE ==
[2019-06-26] MEDS ORDERED: BORTEZOMIB (VELCADE) 2.5 MG/ML SUB-Q INJECTION SQ ONE (10:00)
[2019-06-26 10:23] LABS: BASO % 1.5 % (0-2.0); EOS % 3.9 % (0-4.5); HEMATOCRIT 33.7 % (32.4-45.2); HEMOGLOBIN 10.8 GM/dL (10.7-15.3); LYMPH % 20.7 % (8-40); MCHC 32.2 g/dl (32.0-36.0); MEAN CELL VOLUME 93.1 fl (80-96); MONO % 12.1 % (3.8-10.2); NEUT % 61.8 % (42.8-82.8); PLATELET COUNT 303 K/MM3 (134-434); RBC 3.62 M/mm3 (3.60-5.2); RDW 20.3 % (11.6-15.6); WHITE BLOOD COUNT 4.7 K/mm3 (4.0-10.0)
[2019-06-26 10:55] LABS: ALBUMIN 1.9 g/dl (3.4-5.0); BILIRUBIN,TOTAL 0.4 mg/dL (0.2-1); BLOOD UREA NITROGEN 6.8 mg/dL (7-18); CALCIUM 8.1 mg/dL (8.5-10.1); CREATININE 0.9 mg/dL (0.55-1.3); MAGNESIUM 1.9 mg/dL (1.8-2.4); POTASSIUM 4.3 mmol/L (3.5-5.1); TOT PROT 5.7 g/dl (6.4-8.2); URIC ACID 4.7 mg/dL (2.6-7.2)
[2019-06-26] MEDS ORDERED: SODIUM CHLORIDE 250 ML IV ONE (11:15)
[2019-06-26] MEDS ORDERED: DEXAMETHASONE 4 MG TABLET (FP) PO ONE (11:30)
[2019-06-26 16:56] VITALS: TEMP 98
[2019-06-26 16:57] VITALS: BP 108/52; PULSE 57
[2019-06-27 18:07] LABS: FREE KAPPA,SERUM 33.4 mg/L (3.3-19.4)
== END 2019-06-26 12:50 | disposition home or self-care (01) ==
LOC: JONCCHEMO 05:56 → J7W 10:54 → JONCCHEMO 12:50
PROVIDERS: ATTEND Nurse Practitioner Family
DX: Z51.11 Encounter for antineoplastic chemotherapy (principal); C90.00 Multiple myeloma not having achieved remission
CPT/HCPCS: 36415; 80053; 83615; 83735; 83883; 84550; 85025; 96401; J9041

== ENCOUNTER 2020-07-16 12:12 | Inpatient (IN) | payer OTHER, BC, MEDICARE ==
[2020-07-16] MEDS ORDERED: VANCOMYCIN 1 GM in D5W (PRE-DOCKED) 1,000 MG/250 ML IVPB ONE ×2 (14:08→14:13)
[2020-07-16] MEDS ORDERED: CEFEPIME HCL/D5W 2 GM/50 ML BAG IVPB ONE (14:08)
[2020-07-16 16:31] LABS: BASO % 0.3 % (0-2.0); HEMATOCRIT 36.6 % (32.4-45.2); HEMOGLOBIN 12.1 GM/dL (10.7-15.3); LYMPH % 4.4 % (8-40); MCH 31.4 pg (25.7-33.7); MEAN CELL VOLUME 95.4 fl (80-96); MEAN PLT VOLUME 8.8 fl (7.5-11.1); MONO % 10.7 % (3.8-10.2); NEUT % 84.6 % (42.8-82.8); PLATELET COUNT 253 K/MM3 (134-434); RBC 3.84 M/mm3 (3.60-5.2); RDW 18.9 % (11.6-15.6); WHITE BLOOD COUNT 6.2 K/mm3 (4.0-10.0)
[2020-07-16 16:37] LABS: INR 1.18 (0.83-1.09); PROTHROMBIN TIME (PATIENT) 14.2 SEC (9.7-13.0)
[2020-07-16 16:39] LABS: ACTIVATED PTT 32.2 SECONDS (25.2-36.5)
[2020-07-16 16:50] LABS: ALBUMIN 2.7 g/dl (3.4-5.0); BLOOD UREA NITROGEN 27.3 mg/dL (7-18); CALCIUM 9.1 mg/dL (8.5-10.1)
[2020-07-16 16:52] LABS: CREATININE 1.3 mg/dL (0.55-1.3)
[2020-07-16 16:54] LABS: BILIRUBIN,TOTAL 0.3 mg/dL (0.2-1); TOT PROT 6.7 g/dl (6.4-8.2)
[2020-07-16] MEDS ORDERED: VANCOMYCIN 1 GRAM (PRE-DOCKED) 1,000 MG/250 ML BAG IVPB ONE (16:58)
[2020-07-16] MEDS ORDERED: CEFEPIME 2 GM/100 ML BAG IVPB ONE (16:59)
[2020-07-16] MEDS ORDERED: ACETAMINOPHEN 325 MG TABLET (FP) PO PRN (18:43)
[2020-07-16] MEDS ORDERED: traMADol HCL 50 MG TABLET PO PRN (18:43)
[2020-07-16] MEDS ORDERED: HEPARIN NA (PORCINE) 5,000 UNITS/ML 1ML VIAL SQ SCH (22:00)
[2020-07-16] MEDS ORDERED: PT OWN MED DRAWER 7, Y5N ONE (22:25)
[2020-07-16] MEDS: APIXABAN 2.5 MG TABLET PO SCH (22:29)
[2020-07-16] MEDS: GABAPENTIN 300 MG CAPSULE PO SCH (22:29)
[2020-07-16] MEDS: ATORVASTATIN CA 20 MG TABLET (FP) PO SCH (22:29)
[2020-07-16 23:25] VITALS: BMI 18.2
[2020-07-16] MEDS: MEMANTINE HCL 5 MG TABLET (UD) PO SCH (23:26)
[2020-07-16] MEDS: PRAMIPEXOLE DIHYDROCHLORIDE 0.25 MG TABLET PO SCH (23:26)
[2020-07-17] MEDS ORDERED: PT OWN MED DRAWER 7, Y5N ONE ×4 (05:54→20:55)
[2020-07-17] MEDS: LEVOTHYROXINE NA 75 MCG TABLET (FP) PO SCH (06:23)
[2020-07-17] MEDS: PRAMIPEXOLE DIHYDROCHLORIDE 0.25 MG TABLET PO SCH ×3 (06:23→21:30)
[2020-07-17] MEDS: GABAPENTIN 300 MG CAPSULE PO SCH ×3 (06:23→21:29)
[2020-07-17 08:12] LABS: HEMATOCRIT 30.2 % (32.4-45.2); HEMOGLOBIN 10.3 GM/dL (10.7-15.3); MCH 32.1 pg (25.7-33.7); MEAN CELL VOLUME 94.3 fl (80-96); MEAN PLT VOLUME 8.7 fl (7.5-11.1); PLATELET COUNT 215 K/MM3 (134-434); RDW 18.5 % (11.6-15.6); WHITE BLOOD COUNT 6.1 K/mm3 (4.0-10.0)
[2020-07-17 08:32] LABS: CALCIUM 8.5 mg/dL (8.5-10.1)
[2020-07-17 08:33] LABS: ALBUMIN 2.2 g/dl (3.4-5.0); BLOOD UREA NITROGEN 27.9 mg/dL (7-18)
[2020-07-17 08:36] LABS: CREATININE 1.2 mg/dL (0.55-1.3)
[2020-07-17 08:39] LABS: BILIRUBIN,TOTAL 0.3 mg/dL (0.2-1); TOT PROT 5.4 g/dl (6.4-8.2)
[2020-07-17] MEDS ORDERED: valACYclovir HCL 500 MG TABLET (FP) ONE (11:49)
[2020-07-17] MEDS ORDERED: PIPERACILLIN/TAZOBACTAM 3.375 GM VIAL IVPB ONE ×2 (11:49→18:09)
[2020-07-17] MEDS ORDERED: DEXTROSE 5%-WATER - 50 ML IVPB ONE ×2 (11:49→18:09)
[2020-07-17] MEDS: metoPROLOL SUCCINATE 25 MG TAB.SR.24H (FP) PO SCH (12:06)
[2020-07-17] MEDS: FUROSEMIDE 40 MG TABLET (FP) PO SCH (12:06)
[2020-07-17] MEDS: APIXABAN 2.5 MG TABLET PO SCH ×2 (12:07→21:29)
[2020-07-17] MEDS: MEMANTINE HCL 5 MG TABLET (UD) PO SCH ×2 (12:07→21:30)
[2020-07-17] MEDS: valACYclovir HCL 1000 MG TABLET PO SCH (12:15)
[2020-07-17] MEDS: PIPERACILLIN/TAZOB 3.375 GM 3.375 GM in DEXTROSE 5%-WATER - 50 ML IVPB SCH ×3 (12:37→20:27)
[2020-07-17] MEDS: COLLAGENASE CLOSTRIDIUM HIST. 30 GRAMS TUBE TP SCH (20:27)
[2020-07-17] MEDS: ATORVASTATIN CA 20 MG TABLET (FP) PO SCH (21:29)
[2020-07-18] MEDS ORDERED: DEXTROSE 5%-WATER - 50 ML IVPB ONE ×3 (00:08→18:18)
[2020-07-18] MEDS ORDERED: PIPERACILLIN/TAZOBACTAM 3.375 GM VIAL IVPB ONE ×3 (00:08→18:17)
[2020-07-18] MEDS: PIPERACILLIN/TAZOB 3.375 GM 3.375 GM in DEXTROSE 5%-WATER - 50 ML IVPB SCH ×3 (01:25→18:22)
[2020-07-18] MEDS ORDERED: PT OWN MED DRAWER 7, Y5N ONE ×6 (01:34→22:29)
[2020-07-18] MEDS: GABAPENTIN 300 MG CAPSULE PO SCH ×3 (05:46→21:17)
[2020-07-18] MEDS: PRAMIPEXOLE DIHYDROCHLORIDE 0.25 MG TABLET PO SCH ×3 (05:46→21:18)
[2020-07-18] MEDS: LEVOTHYROXINE NA 75 MCG TABLET (FP) PO SCH (06:23)
[2020-07-18] MEDS ORDERED: valACYclovir HCL 500 MG TABLET (FP) ONE (10:47)
[2020-07-18] MEDS: APIXABAN 2.5 MG TABLET PO SCH ×2 (10:54→21:17)
[2020-07-18] MEDS: FUROSEMIDE 40 MG TABLET (FP) PO SCH (10:54)
[2020-07-18] MEDS: metoPROLOL SUCCINATE 25 MG TAB.SR.24H (FP) PO SCH ×2 (10:54→11:08)
[2020-07-18] MEDS: COLLAGENASE CLOSTRIDIUM HIST. 30 GRAMS TUBE TP SCH (10:55)
[2020-07-18] MEDS: MEMANTINE HCL 5 MG TABLET (UD) PO SCH ×2 (10:55→21:18)
[2020-07-18] MEDS: valACYclovir HCL 1000 MG TABLET PO SCH (10:56)
[2020-07-18 11:58] LABS: HEMATOCRIT 31.9 % (32.4-45.2); HEMOGLOBIN 10.7 GM/dL (10.7-15.3); MCH 31.6 pg (25.7-33.7); MCHC 33.6 g/dl (32.0-36.0); MEAN CELL VOLUME 94.2 fl (80-96); MEAN PLT VOLUME 8.4 fl (7.5-11.1); PLATELET COUNT 190 K/MM3 (134-434); RBC 3.39 M/mm3 (3.60-5.2); RDW 18.5 % (11.6-15.6); WHITE BLOOD COUNT 4.5 K/mm3 (4.0-10.0)
[2020-07-18 12:24] LABS: ALBUMIN 2.1 g/dl (3.4-5.0); CALCIUM 8.6 mg/dL (8.5-10.1)
[2020-07-18 12:25] LABS: BLOOD UREA NITROGEN 21.5 mg/dL (7-18)
[2020-07-18 12:29] LABS: BILIRUBIN,TOTAL 0.4 mg/dL (0.2-1); CREATININE 1.1 mg/dL (0.55-1.3); TOT PROT 5.3 g/dl (6.4-8.2)
[2020-07-18] MEDS: ATORVASTATIN CA 20 MG TABLET (FP) PO SCH (21:17)
[2020-07-19] MEDS ORDERED: DEXTROSE 5%-WATER - 50 ML IVPB ONE ×3 (00:23→16:32)
[2020-07-19] MEDS ORDERED: PIPERACILLIN/TAZOBACTAM 3.375 GM VIAL IVPB ONE ×3 (00:23→16:32)
[2020-07-19] MEDS: PIPERACILLIN/TAZOB 3.375 GM 3.375 GM in DEXTROSE 5%-WATER - 50 ML IVPB SCH ×3 (01:19→17:03)
[2020-07-19] MEDS ORDERED: PT OWN MED DRAWER 7, Y5N ONE ×2 (05:16→20:30)
[2020-07-19] MEDS: PRAMIPEXOLE DIHYDROCHLORIDE 0.25 MG TABLET PO SCH ×3 (05:51→22:03)
[2020-07-19] MEDS: GABAPENTIN 300 MG CAPSULE PO SCH ×3 (05:51→21:59)
[2020-07-19] MEDS: LEVOTHYROXINE NA 75 MCG TABLET (FP) PO SCH (06:02)
[2020-07-19] MEDS ORDERED: valACYclovir HCL 500 MG TABLET (FP) ONE (09:08)
[2020-07-19] MEDS: MEMANTINE HCL 5 MG TABLET (UD) PO SCH ×2 (09:18→22:03)
[2020-07-19] MEDS: FAMOTIDINE 20 MG TABLET PO SCH ×2 (09:18→10:00)
[2020-07-19] MEDS: APIXABAN 2.5 MG TABLET PO SCH ×2 (09:19→21:59)
[2020-07-19] MEDS: FUROSEMIDE 40 MG TABLET (FP) PO SCH (09:19)
[2020-07-19] MEDS: valACYclovir HCL 1000 MG TABLET PO SCH (09:19)
[2020-07-19] MEDS: metoPROLOL SUCCINATE 25 MG TAB.SR.24H (FP) PO SCH (09:30)
[2020-07-19] MEDS: COLLAGENASE CLOSTRIDIUM HIST. 30 GRAMS TUBE TP SCH (13:25)
[2020-07-19] MEDS: ATORVASTATIN CA 20 MG TABLET (FP) PO SCH (21:59)
[2020-07-20] MEDS ORDERED: PIPERACILLIN/TAZOBACTAM 3.375 GM VIAL IVPB ONE ×3 (02:10→17:07)
[2020-07-20] MEDS: PIPERACILLIN/TAZOB 3.375 GM 3.375 GM in DEXTROSE 5%-WATER - 50 ML IVPB SCH ×3 (02:15→17:11)
[2020-07-20] MEDS: PRAMIPEXOLE DIHYDROCHLORIDE 0.25 MG TABLET PO SCH ×3 (06:01→21:13)
[2020-07-20] MEDS: GABAPENTIN 300 MG CAPSULE PO SCH ×3 (06:01→21:11)
[2020-07-20] MEDS: LEVOTHYROXINE NA 75 MCG TABLET (FP) PO SCH (06:01)
[2020-07-20] MEDS ORDERED: valACYclovir HCL 500 MG TABLET (FP) ONE (09:23)
[2020-07-20] MEDS ORDERED: DEXTROSE 5%-WATER - 50 ML IVPB ONE ×2 (09:25→17:07)
[2020-07-20] MEDS: FUROSEMIDE 40 MG TABLET (FP) PO SCH (09:36)
[2020-07-20] MEDS: metoPROLOL SUCCINATE 25 MG TAB.SR.24H (FP) PO SCH (09:36)
[2020-07-20] MEDS: valACYclovir HCL 1000 MG TABLET PO SCH (09:36)
[2020-07-20] MEDS: MEMANTINE HCL 5 MG TABLET (UD) PO SCH ×2 (09:37→21:12)
[2020-07-20] MEDS: COLLAGENASE CLOSTRIDIUM HIST. 30 GRAMS TUBE TP SCH (09:38)
[2020-07-20] MEDS: FAMOTIDINE 20 MG TABLET PO SCH (09:40)
[2020-07-20 12:06] LABS: HEMOGLOBIN 11.6 GM/dL (10.7-15.3); MCHC 34.2 g/dl (32.0-36.0); MEAN CELL VOLUME 93.6 fl (80-96); MEAN PLT VOLUME 8.7 fl (7.5-11.1); PLATELET COUNT 224 K/MM3 (134-434); RBC 3.63 M/mm3 (3.60-5.2); RDW 18.5 % (11.6-15.6); WHITE BLOOD COUNT 4.4 K/mm3 (4.0-10.0)
[2020-07-20 12:16] LABS: INR 1.37 (0.83-1.09); PROTHROMBIN TIME (PATIENT) 16.4 SEC (9.7-13.0)
[2020-07-20 12:51] LABS: BLOOD UREA NITROGEN 16.3 mg/dL (7-18); CALCIUM 9.3 mg/dL (8.5-10.1); CREATININE 1.2 mg/dL (0.55-1.3)
[2020-07-20] MEDS ORDERED: POTASSIUM CHLORIDE TABS 10 MEQ TABLET.ER (FP) PO ONE (16:58)
[2020-07-20] MEDS: ATORVASTATIN CA 20 MG TABLET (FP) PO SCH (21:11)
[2020-07-21] MEDS ORDERED: DEXTROSE 5%-WATER - 50 ML IVPB ONE ×3 (01:49→17:48)
[2020-07-21] MEDS ORDERED: PIPERACILLIN/TAZOBACTAM 3.375 GM VIAL IVPB ONE ×3 (01:49→17:48)
[2020-07-21] MEDS: PIPERACILLIN/TAZOB 3.375 GM 3.375 GM in DEXTROSE 5%-WATER - 50 ML IVPB SCH ×3 (01:52→18:01)
[2020-07-21] MEDS: GABAPENTIN 300 MG CAPSULE PO SCH ×3 (06:06→21:09)
[2020-07-21] MEDS: LEVOTHYROXINE NA 75 MCG TABLET (FP) PO SCH (06:06)
[2020-07-21] MEDS: PRAMIPEXOLE DIHYDROCHLORIDE 0.25 MG TABLET PO SCH ×3 (06:06→21:09)
[2020-07-21] MEDS ORDERED: valACYclovir HCL 500 MG TABLET (FP) ONE (10:12)
[2020-07-21] MEDS ORDERED: PT OWN MED DRAWER 7, Y5N ONE ×3 (10:12→20:50)
[2020-07-21] MEDS: FUROSEMIDE 40 MG TABLET (FP) PO SCH (10:18)
[2020-07-21] MEDS: FAMOTIDINE 20 MG TABLET PO SCH (10:19)
[2020-07-21] MEDS: metoPROLOL SUCCINATE 25 MG TAB.SR.24H (FP) PO SCH (10:19)
[2020-07-21] MEDS: MEMANTINE HCL 5 MG TABLET (UD) PO SCH ×2 (10:20→21:09)
[2020-07-21] MEDS: COLLAGENASE CLOSTRIDIUM HIST. 30 GRAMS TUBE TP SCH (10:20)
[2020-07-21] MEDS: valACYclovir HCL 1000 MG TABLET PO SCH (10:20)
[2020-07-21 11:01] LABS: CALCIUM 9.6 mg/dL (8.5-10.1)
[2020-07-21 11:03] LABS: MAGNESIUM 2.2 mg/dL (1.8-2.4)
[2020-07-21 11:04] LABS: BLOOD UREA NITROGEN 15.8 mg/dL (7-18)
[2020-07-21 11:06] LABS: CREATININE 1.2 mg/dL (0.55-1.3)
[2020-07-21 12:04] LABS: INR 1.23 (0.83-1.09)
[2020-07-21] MEDS ORDERED: POTASSIUM CHLORIDE TABS 10 MEQ TABLET.ER (FP) PO ONE (13:26)
[2020-07-21] MEDS ORDERED: POTASSIUM CHLORIDE TABS 20 MEQ TABLET.ER (FP) PO ONE (13:45)
[2020-07-21] MEDS: ATORVASTATIN CA 20 MG TABLET (FP) PO SCH (21:09)
[2020-07-22] MEDS ORDERED: PIPERACILLIN/TAZOBACTAM 3.375 GM VIAL IVPB ONE ×2 (01:04→23:48)
[2020-07-22] MEDS ORDERED: DEXTROSE 5%-WATER - 50 ML IVPB ONE ×2 (01:04→23:48)
[2020-07-22] MEDS: PIPERACILLIN/TAZOB 3.375 GM 3.375 GM in DEXTROSE 5%-WATER - 50 ML IVPB SCH ×3 (01:25→17:02)
[2020-07-22] MEDS: PRAMIPEXOLE DIHYDROCHLORIDE 0.25 MG TABLET PO SCH ×3 (05:49→21:45)
[2020-07-22] MEDS: GABAPENTIN 300 MG CAPSULE PO SCH ×3 (05:49→21:45)
[2020-07-22] MEDS: LEVOTHYROXINE NA 75 MCG TABLET (FP) PO SCH (06:25)
[2020-07-22] MEDS ORDERED: SODIUM CHLORIDE 0.9% P/F 10 ML VIAL IJ ONE ×2 (07:18→09:08)
[2020-07-22] MEDS ORDERED: ONDANSETRON 4 MG/2 ML VIAL IVPUSH PRN ×2 (07:30→10:46)
[2020-07-22] MEDS ORDERED: PROPOFOL 20 ML ONE ×2 (07:35)
[2020-07-22] MEDS ORDERED: LIDOCAINE HCL/PF 2% SDV 5ML VIAL ONE (07:48)
[2020-07-22] MEDS ORDERED: BUPIVACAINE HCL/PF 0.5% (5 MG/ML) 30 ML VIAL IJ ONE (07:59)
[2020-07-22] MEDS ORDERED: LIDOCAINE HCL 1%, 10 MG/ML (20ML VIAL) INF ONE (07:59)
[2020-07-22] MEDS ORDERED: BACITRACIN 50,000 UNITS VIAL TP ONE (08:00)
[2020-07-22] MEDS ORDERED: ePHEDrine SULFATE 50 MG/1 ML AMPULE ONE (08:00)
[2020-07-22] MEDS ORDERED: VANCOMYCIN 1,000 MG VIAL (RESTRICTED TO ID ONLY) ONE (08:09)
[2020-07-22] MEDS ORDERED: valACYclovir HCL 500 MG TABLET (FP) PO SCH (10:00)
[2020-07-22] MEDS: FUROSEMIDE 40 MG TABLET (FP) PO SCH (10:00)
[2020-07-22] MEDS: MEMANTINE HCL 5 MG TABLET (UD) PO SCH ×2 (10:00→21:45)
[2020-07-22] MEDS: metoPROLOL SUCCINATE 25 MG TAB.SR.24H (FP) PO SCH (10:00)
[2020-07-22] MEDS: COLLAGENASE CLOSTRIDIUM HIST. 30 GRAMS TUBE TP SCH (13:50)
[2020-07-22 14:05] LABS: BASO % 3.4 % (0-2.0); EOS % 5.9 % (0-4.5); HEMOGLOBIN 10.9 GM/dL (10.7-15.3); LYMPH % 10.6 % (8-40); MCH 31.4 pg (25.7-33.7); MCHC 32.9 g/dl (32.0-36.0); MEAN CELL VOLUME 95.3 fl (80-96); MEAN PLT VOLUME 9.1 fl (7.5-11.1); MONO % 18.7 % (3.8-10.2); NEUT % 61.4 % (42.8-82.8); PLATELET COUNT 231 K/MM3 (134-434); RBC 3.46 M/mm3 (3.60-5.2); RDW 18.1 % (11.6-15.6); WHITE BLOOD COUNT 4.7 K/mm3 (4.0-10.0)
[2020-07-22] MEDS ORDERED: PT OWN MED DRAWER 7, Y5N ONE ×2 (15:31→20:30)
[2020-07-22] MEDS: ACETAMINOPHEN 325 MG TABLET (FP) PO PRN (15:36)
[2020-07-22] MEDS: ATORVASTATIN CA 20 MG TABLET (FP) PO SCH (21:45)
[2020-07-23] MEDS: ACETAMINOPHEN 325 MG TABLET (FP) PO PRN ×2 (00:22→09:52)
[2020-07-23] MEDS: PIPERACILLIN/TAZOB 3.375 GM 3.375 GM in DEXTROSE 5%-WATER - 50 ML IVPB SCH ×3 (01:24→17:33)
[2020-07-23] MEDS ORDERED: oxyCODONE HCL 5 MG TABLET PO ONE (01:45)
[2020-07-23] MEDS: PRAMIPEXOLE DIHYDROCHLORIDE 0.25 MG TABLET PO SCH ×3 (05:59→21:22)
[2020-07-23] MEDS: GABAPENTIN 300 MG CAPSULE PO SCH ×3 (06:00→21:21)
[2020-07-23] MEDS: LEVOTHYROXINE NA 75 MCG TABLET (FP) PO SCH (06:22)
[2020-07-23 07:28] LABS: HEMATOCRIT 29.2 % (32.4-45.2); HEMOGLOBIN 9.8 GM/dL (10.7-15.3); MCH 31.5 pg (25.7-33.7); MCHC 33.6 g/dl (32.0-36.0); MEAN CELL VOLUME 93.8 fl (80-96); MEAN PLT VOLUME 8.8 fl (7.5-11.1); PLATELET COUNT 221 K/MM3 (134-434); RBC 3.12 M/mm3 (3.60-5.2); RDW 18.6 % (11.6-15.6); WHITE BLOOD COUNT 4.6 K/mm3 (4.0-10.0)
[2020-07-23 08:51] LABS: BLOOD UREA NITROGEN 10.5 mg/dL (7-18); CALCIUM 8.8 mg/dL (8.5-10.1)
[2020-07-23] MEDS ORDERED: PT OWN MED DRAWER 7, Y5N ONE ×2 (09:44→20:43)
[2020-07-23] MEDS ORDERED: PIPERACILLIN/TAZOBACTAM 3.375 GM VIAL IVPB ONE ×2 (09:44→16:39)
[2020-07-23] MEDS ORDERED: DEXTROSE 5%-WATER - 50 ML IVPB ONE ×2 (09:44→16:39)
[2020-07-23] MEDS: valACYclovir HCL 500 MG TABLET (FP) PO SCH (09:51)
[2020-07-23] MEDS: MEMANTINE HCL 5 MG TABLET (UD) PO SCH ×2 (09:53→21:21)
[2020-07-23] MEDS: FUROSEMIDE 40 MG TABLET (FP) PO SCH (09:53)
[2020-07-23] MEDS: FAMOTIDINE 20 MG TABLET PO SCH (09:53)
[2020-07-23] MEDS: metoPROLOL SUCCINATE 25 MG TAB.SR.24H (FP) PO SCH (09:53)
[2020-07-23] MEDS ORDERED: POTASSIUM CHLORIDE TABS 20 MEQ TABLET.ER (FP) PO ONE (10:45)
[2020-07-23] MEDS ORDERED: KCL 10 MEQ IVPB 10 MEQ/100 ML INFUS.BAG IVPB SCH (11:00)
[2020-07-23] MEDS: ATORVASTATIN CA 20 MG TABLET (FP) PO SCH (21:21)
[2020-07-24] MEDS: PIPERACILLIN/TAZOB 3.375 GM 3.375 GM in DEXTROSE 5%-WATER - 50 ML IVPB SCH ×3 (02:03→17:51)
[2020-07-24] MEDS ORDERED: DEXTROSE 5%-WATER - 50 ML IVPB ONE ×3 (02:50→17:20)
[2020-07-24] MEDS ORDERED: PIPERACILLIN/TAZOBACTAM 3.375 GM VIAL IVPB ONE ×3 (02:50→17:20)
[2020-07-24] MEDS ORDERED: PT OWN MED DRAWER 7, Y5N ONE ×4 (06:04→20:11)
[2020-07-24] MEDS: PRAMIPEXOLE DIHYDROCHLORIDE 0.25 MG TABLET PO SCH ×3 (06:11→21:11)
[2020-07-24] MEDS: LEVOTHYROXINE NA 75 MCG TABLET (FP) PO SCH (06:11)
[2020-07-24] MEDS: GABAPENTIN 300 MG CAPSULE PO SCH ×3 (06:11→21:11)
[2020-07-24 07:34] LABS: HEMATOCRIT 30.2 % (32.4-45.2); MCH 31.6 pg (25.7-33.7); MCHC 33.2 g/dl (32.0-36.0); MEAN PLT VOLUME 8.8 fl (7.5-11.1); PLATELET COUNT 228 K/MM3 (134-434); RBC 3.18 M/mm3 (3.60-5.2); RDW 18.8 % (11.6-15.6); WHITE BLOOD COUNT 5.7 K/mm3 (4.0-10.0)
[2020-07-24 07:50] LABS: CALCIUM 8.6 mg/dL (8.5-10.1)
[2020-07-24 07:51] LABS: BLOOD UREA NITROGEN 9.6 mg/dL (7-18)
[2020-07-24] MEDS: APIXABAN 2.5 MG TABLET PO SCH ×2 (10:04→21:11)
[2020-07-24] MEDS: metoPROLOL SUCCINATE 25 MG TAB.SR.24H (FP) PO SCH (10:04)
[2020-07-24] MEDS: AMINO ACIDS/PROTEIN HYDROLYS 30 ML LIQUID.PKT PO SCH ×2 (10:04→17:51)
[2020-07-24] MEDS: MULTIVITAMINS (DAILY MVI) TABLET (FP) PO SCH (10:04)
[2020-07-24] MEDS: FUROSEMIDE 40 MG TABLET (FP) PO SCH (10:04)
[2020-07-24] MEDS: FAMOTIDINE 20 MG TABLET PO SCH (10:04)
[2020-07-24] MEDS: valACYclovir HCL 500 MG TABLET (FP) PO SCH (10:04)
[2020-07-24] MEDS: MEMANTINE HCL 5 MG TABLET (UD) PO SCH ×2 (10:05→21:11)
[2020-07-24] MEDS ORDERED: POTASSIUM CHLORIDE TABS 10 MEQ TABLET.ER (FP) PO ONE (10:16)
[2020-07-24] MEDS: ACETAMINOPHEN 325 MG TABLET (FP) PO PRN (15:44)
[2020-07-24] MEDS: ATORVASTATIN CA 20 MG TABLET (FP) PO SCH (21:11)
[2020-07-25] MEDS ORDERED: DEXTROSE 5%-WATER - 50 ML IVPB ONE ×3 (01:40→17:24)
[2020-07-25] MEDS ORDERED: PIPERACILLIN/TAZOBACTAM 3.375 GM VIAL IVPB ONE ×3 (01:40→17:24)
[2020-07-25] MEDS: PIPERACILLIN/TAZOB 3.375 GM 3.375 GM in DEXTROSE 5%-WATER - 50 ML IVPB SCH ×3 (01:48→17:28)
[2020-07-25] MEDS ORDERED: PT OWN MED DRAWER 7, Y5N ONE ×4 (05:37→15:04)
[2020-07-25] MEDS: PRAMIPEXOLE DIHYDROCHLORIDE 0.25 MG TABLET PO SCH ×2 (05:42→15:08)
[2020-07-25] MEDS: GABAPENTIN 300 MG CAPSULE PO SCH ×2 (05:42→13:50)
[2020-07-25] MEDS: LEVOTHYROXINE NA 75 MCG TABLET (FP) PO SCH (06:02)
[2020-07-25 08:06] LABS: SARS-CoV-2 NAA Not Detected (Not Detected)
[2020-07-25] MEDS: AMINO ACIDS/PROTEIN HYDROLYS 30 ML LIQUID.PKT PO SCH ×2 (08:36→17:28)
[2020-07-25] MEDS: metoPROLOL SUCCINATE 25 MG TAB.SR.24H (FP) PO SCH (11:04)
[2020-07-25] MEDS: FAMOTIDINE 20 MG TABLET PO SCH (11:04)
[2020-07-25] MEDS: MULTIVITAMINS (DAILY MVI) TABLET (FP) PO SCH (11:05)
[2020-07-25] MEDS: FUROSEMIDE 40 MG TABLET (FP) PO SCH (11:05)
[2020-07-25] MEDS: MEMANTINE HCL 5 MG TABLET (UD) PO SCH (11:05)
[2020-07-25] MEDS: APIXABAN 2.5 MG TABLET PO SCH (11:06)
[2020-07-25] MEDS: valACYclovir HCL 500 MG TABLET (FP) PO SCH (11:06)
[2020-07-25 15:06] VITALS: BP 109/47; PULSE 58; TEMP 97.5
== END 2020-07-25 18:13 | DRG 617 ==
LOC: JER 12:12 → JERBED 17:14 → J8W 21:48
PROVIDERS: ADMIT Family Medicine; ATTEND Family Medicine
PROC: 0SBM0ZZ Excision of Right Metatarsal-Phalangeal Joint, Open Approach (ICD-10-PCS; 2020-07-22)
PROC: 3E0U029 Introduction of Other Anti-infective into Joints, Open Approach (ICD-10-PCS; 2020-07-22)
PROC: 0Y6P0Z0 Detachment at Right 1st Toe, Complete, Open Approach (ICD-10-PCS; principal; 2020-07-22 07:30)
DX: E11.69 Type 2 diabetes mellitus with other specified complication (principal); E11.52 Type 2 diabetes mellitus with diabetic peripheral angiopathy with gangrene; M86.171 Other acute osteomyelitis, right ankle and foot; I96 Gangrene, not elsewhere classified; M86.671 Other chronic osteomyelitis, right ankle and foot; L97.519 Non-pressure chronic ulcer of other part of right foot with unspecified severity; E11.621 Type 2 diabetes mellitus with foot ulcer; I10 Essential (primary) hypertension; I48.91 Unspecified atrial fibrillation; F03.90 Unspecified dementia, unspecified severity, without behavioral disturbance, psychotic disturbance, mood disturbance, and anxiety; I83.009 Varicose veins of unspecified lower extremity with ulcer of unspecified site; E03.9 Hypothyroidism, unspecified; K21.9 Gastro-esophageal reflux disease without esophagitis
CPT/HCPCS: 36415; 73590-TC-LT-FY; 73630-TC-RT-FY; 73718-TC-RT; 80048; 80053; 83735; 85025; 85027; 85610; 85730; 86850; 86900; 86901; 87040; 87070; 87081; 87186; 87205; 88305-TC; 88311-TC; 93005; 93010; 99285-25; A6196; C9803; G0463-25; U0003; U0005

== ENCOUNTER 2020-09-18 10:36 | Inpatient (IN) | payer OTHER, BC, MEDICARE ==
[2020-09-18 13:03] LABS: EOS % 2.4 % (0-4.5); HEMOGLOBIN 10.8 GM/dL (10.7-15.3); LYMPH % 10.6 % (8-40); MCH 30.7 pg (25.7-33.7); MCHC 32.6 g/dl (32.0-36.0); MEAN CELL VOLUME 94.2 fl (80-96); MEAN PLT VOLUME 10.2 fl (7.5-11.1); MONO % 17.9 % (3.8-10.2); NEUT % 68.1 % (42.8-82.8); PLATELET COUNT 171 K/MM3 (134-434); RDW 20.8 % (11.6-15.6); WHITE BLOOD COUNT 4.3 K/mm3 (4.0-10.0)
[2020-09-18 13:10] LABS: INR 0.97 (0.83-1.09); PROTHROMBIN TIME (PATIENT) 11.7 SEC (9.7-13.0)
[2020-09-18 13:13] LABS: ACTIVATED PTT 29.4 SECONDS (25.2-36.5)
[2020-09-18 13:20] LABS: CHLORIDE 103 mmol/L (98-107); SODIUM 142 mmol/L (136-145)
[2020-09-18 13:24] LABS: ALBUMIN 2.7 g/dl (3.4-5.0); ANION GAP 8 MMOL/L (8-16); CALCIUM 8.8 mg/dL (8.5-10.1); CO2 31 mmol/L (21-32); GLUCOSE,RANDOM 79 mg/dL (74-106)
[2020-09-18 13:25] LABS: BLOOD UREA NITROGEN 21.3 mg/dL (7-18)
[2020-09-18 13:27] LABS: CREATININE 1.2 mg/dL (0.55-1.3)
[2020-09-18 13:28] LABS: SGOT/AST 11 U/L (15-37); SGPT/ALT 16 U/L (13-61)
[2020-09-18 13:29] LABS: BILIRUBIN,TOTAL 0.4 mg/dL (0.2-1); TOT PROT 5.4 g/dl (6.4-8.2)
[2020-09-18 13:30] LABS: ALK PHOS 65 U/L (45-117)
[2020-09-18] MEDS ORDERED: PANTOPRAZOLE SODIUM 40 MG in SODIUM CHLORIDE 100 ML IVPB ONE (14:50)
[2020-09-18] MEDS ORDERED: PANTOPRAZOLE SODIUM 40 MG VIAL ONE (15:16)
[2020-09-18 15:25] LABS: ANISOCYTOSIS 1+; MACROCYTOSIS 0; OVALOCYTE 1+; PLATELET ESTIMATE NORMAL; TARGET CELLS 1+; TEAR DROP CELLS 1+
[2020-09-18] MEDS ORDERED: SODIUM CHLORIDE 0.9% 500 ML INFUS.BAG IV ONE (15:51)
[2020-09-18] MEDS ORDERED: ACETAMINOPHEN 325 MG TABLET (FP) PO PRN (16:32)
[2020-09-18] MEDS: D5-1/2NS+20 MEQ KCL - 20 MEQ/1,000 ML INFUS.BAG IV SCH (17:18)
[2020-09-18] MEDS ORDERED: traMADol HCL 50 MG TABLET ONE (17:29)
[2020-09-18] MEDS: traMADol HCL 50 MG TABLET PO SCH (17:33)
[2020-09-18] MEDS: MIDODRINE HCL 2.5 MG TABLET PO SCH (17:33)
[2020-09-18 18:57] LABS: HEMOGLOBIN 10.1 GM/dL (10.7-15.3); MCH 30.7 pg (25.7-33.7); MCHC 32.7 g/dl (32.0-36.0); MEAN CELL VOLUME 94.1 fl (80-96); MEAN PLT VOLUME 9.3 fl (7.5-11.1); PLATELET COUNT 152 K/MM3 (134-434); RBC 3.29 M/mm3 (3.60-5.2); RDW 20.6 % (11.6-15.6); WHITE BLOOD COUNT 4.3 K/mm3 (4.0-10.0)
[2020-09-18] MEDS: PANTOPRAZOLE SODIUM 40 MG VIAL IVPUSH SCH (23:19)
[2020-09-19] MEDS: traMADol HCL 50 MG TABLET PO SCH ×5 (00:06→21:29)
[2020-09-19] MEDS: ATORVASTATIN CA 40 MG TABLET (FP) PO SCH ×2 (00:07→21:29)
[2020-09-19] MEDS: GABAPENTIN 300 MG CAPSULE PO SCH ×4 (00:07→21:30)
[2020-09-19] MEDS: PRAMIPEXOLE DIHYDROCHLORIDE 0.25 MG TABLET PO SCH ×4 (00:07→21:30)
[2020-09-19] MEDS: MEMANTINE HCL 5 MG TABLET (UD) PO SCH ×3 (00:07→21:29)
[2020-09-19] MEDS: MAGNESIUM OXIDE 400 MG TABLET (FP) PO SCH ×3 (00:07→21:30)
[2020-09-19 02:00] VITALS: BMI 18.9
[2020-09-19] MEDS: LEVOTHYROXINE NA 75 MCG TABLET (FP) PO SCH (06:12)
[2020-09-19 08:08] LABS: BASO % 2.2 % (0-2.0); EOS % 4.6 % (0-4.5); HEMATOCRIT 31.2 % (32.4-45.2); HEMOGLOBIN 10.2 GM/dL (10.7-15.3); LYMPH % 11.6 % (8-40); MCH 31.1 pg (25.7-33.7); MCHC 32.7 g/dl (32.0-36.0); MEAN CELL VOLUME 95.1 fl (80-96); MEAN PLT VOLUME 8.8 fl (7.5-11.1); MONO % 16.7 % (3.8-10.2); NEUT % 64.9 % (42.8-82.8); PLATELET COUNT 140 K/MM3 (134-434); RBC 3.28 M/mm3 (3.60-5.2); RDW 20.8 % (11.6-15.6); WHITE BLOOD COUNT 3.7 K/mm3 (4.0-10.0)
[2020-09-19 08:16] LABS: PROTHROMBIN TIME (PATIENT) 12.1 SEC (9.7-13.0)
[2020-09-19 08:17] LABS: CALCIUM 8.1 mg/dL (8.5-10.1)
[2020-09-19 08:18] LABS: ALBUMIN 2.2 g/dl (3.4-5.0); BLOOD UREA NITROGEN 12.1 mg/dL (7-18); MAGNESIUM 2.1 mg/dL (1.8-2.4)
[2020-09-19 08:21] LABS: CREATININE 0.8 mg/dL (0.55-1.3)
[2020-09-19 08:23] LABS: BILIRUBIN,TOTAL 0.7 mg/dL (0.2-1); TOT PROT 4.9 g/dl (6.4-8.2)
[2020-09-19] MEDS ORDERED: metoPROLOL SUCCINATE 25 MG TAB.SR.24H (FP) PO SCH (10:00)
[2020-09-19] MEDS ORDERED: LENALIDOMIDE 10 MG PO SCH (10:00)
[2020-09-19] MEDS: valACYclovir HCL 500 MG TABLET (FP) PO SCH (11:22)
[2020-09-19] MEDS: FAMOTIDINE 20 MG TABLET PO SCH (11:22)
[2020-09-19] MEDS: D5-1/2NS+20 MEQ KCL - 20 MEQ/1,000 ML INFUS.BAG IV SCH (11:22)
[2020-09-19] MEDS: POTASSIUM CHLORIDE TABS 10 MEQ TABLET.ER (FP) PO SCH (11:22)
[2020-09-19] MEDS: MIDODRINE HCL 2.5 MG TABLET PO SCH ×2 (11:27→18:29)
[2020-09-19] MEDS: PANTOPRAZOLE SODIUM 40 MG VIAL IVPUSH SCH ×2 (11:28→21:30)
[2020-09-20] MEDS: PRAMIPEXOLE DIHYDROCHLORIDE 0.25 MG TABLET PO SCH ×3 (05:43→21:24)
[2020-09-20] MEDS: GABAPENTIN 300 MG CAPSULE PO SCH ×3 (05:43→21:24)
[2020-09-20] MEDS: LEVOTHYROXINE NA 75 MCG TABLET (FP) PO SCH (06:04)
[2020-09-20 08:09] LABS: BASO % 1.9 % (0-2.0); EOS % 7.2 % (0-4.5); HEMATOCRIT 31.4 % (32.4-45.2); HEMOGLOBIN 10.6 GM/dL (10.7-15.3); MCH 31.3 pg (25.7-33.7); MCHC 33.7 g/dl (32.0-36.0); MEAN PLT VOLUME 8.9 fl (7.5-11.1); MONO % 17.2 % (3.8-10.2); NEUT % 55.7 % (42.8-82.8); PLATELET COUNT 146 K/MM3 (134-434); RBC 3.38 M/mm3 (3.60-5.2); RDW 20.8 % (11.6-15.6); WHITE BLOOD COUNT 2.8 K/mm3 (4.0-10.0)
[2020-09-20] MEDS: FAMOTIDINE 20 MG TABLET PO SCH (09:15)
[2020-09-20] MEDS: traMADol HCL 50 MG TABLET PO SCH ×4 (09:16→21:24)
[2020-09-20] MEDS: MEMANTINE HCL 5 MG TABLET (UD) PO SCH ×2 (09:16→21:24)
[2020-09-20] MEDS: POTASSIUM CHLORIDE TABS 10 MEQ TABLET.ER (FP) PO SCH (09:16)
[2020-09-20] MEDS: valACYclovir HCL 500 MG TABLET (FP) PO SCH (09:16)
[2020-09-20] MEDS: MAGNESIUM OXIDE 400 MG TABLET (FP) PO SCH ×2 (09:16→21:24)
[2020-09-20] MEDS: PANTOPRAZOLE SODIUM 40 MG VIAL IVPUSH SCH ×2 (09:18→21:23)
[2020-09-20] MEDS ORDERED: FUROSEMIDE 20 MG TABLET (FP) PO SCH (10:00)
[2020-09-20] MEDS: IRON POLYSACCHARIDES 150 MG CAPSULE PO SCH (14:24)
[2020-09-20] MEDS: ATORVASTATIN CA 40 MG TABLET (FP) PO SCH (21:24)
[2020-09-21] MEDS: GABAPENTIN 300 MG CAPSULE PO SCH (06:08)
[2020-09-21] MEDS: PRAMIPEXOLE DIHYDROCHLORIDE 0.25 MG TABLET PO SCH (06:08)
[2020-09-21] MEDS: LEVOTHYROXINE NA 75 MCG TABLET (FP) PO SCH (06:08)
[2020-09-21] MEDS: POTASSIUM CHLORIDE TABS 10 MEQ TABLET.ER (FP) PO SCH (09:39)
[2020-09-21] MEDS: traMADol HCL 50 MG TABLET PO SCH (09:39)
[2020-09-21] MEDS: IRON POLYSACCHARIDES 150 MG CAPSULE PO SCH (09:39)
[2020-09-21] MEDS: valACYclovir HCL 500 MG TABLET (FP) PO SCH (09:39)
[2020-09-21] MEDS: PANTOPRAZOLE SODIUM 40 MG VIAL IVPUSH SCH (09:40)
[2020-09-21] MEDS: FAMOTIDINE 20 MG TABLET PO SCH (09:40)
[2020-09-21] MEDS: MEMANTINE HCL 5 MG TABLET (UD) PO SCH (09:40)
[2020-09-21] MEDS: MAGNESIUM OXIDE 400 MG TABLET (FP) PO SCH (09:41)
[2020-09-21 09:45] VITALS: BP 111/49; PULSE 55; TEMP 98
[2020-09-21] MEDS ORDERED: PT OWN MED DRAWER 7, Y5N ONE (10:35)
== END 2020-09-21 15:30 | DRG 378 ==
LOC: JER 10:36 → JERBED 14:16 → J7W 23:07
PROVIDERS: ADMIT Family Medicine; ATTEND Family Medicine
DX: K92.2 Gastrointestinal hemorrhage, unspecified (principal); C90.00 Multiple myeloma not having achieved remission; L97.808 Non-pressure chronic ulcer of other part of unspecified lower leg with other specified severity; I10 Essential (primary) hypertension; E03.9 Hypothyroidism, unspecified; D51.0 Vitamin B12 deficiency anemia due to intrinsic factor deficiency; F03.90 Unspecified dementia, unspecified severity, without behavioral disturbance, psychotic disturbance, mood disturbance, and anxiety; I48.91 Unspecified atrial fibrillation; D49.0 Neoplasm of unspecified behavior of digestive system; E11.9 Type 2 diabetes mellitus without complications; K74.60 Unspecified cirrhosis of liver; K21.9 Gastro-esophageal reflux disease without esophagitis; R94.5 Abnormal results of liver function studies; E78.5 Hyperlipidemia, unspecified; D64.9 Anemia, unspecified; Z86.718 Personal history of other venous thrombosis and embolism; Z85.850 Personal history of malignant neoplasm of thyroid
CPT/HCPCS: 36415; 71045-TC-FY; 80053; 82272; 82550; 82728; 82962; 83540; 83550; 83735; 84443; 84484; 85025; 85027; 85610; 85730; 86850; 86900; 86901; 93005; 93010; 99285-25; C9803; U0003; U0005

== ENCOUNTER 2020-09-30 11:29 | Observation (INO) | payer OTHER, BC, MEDICARE ==
[2020-09-30 12:54] LABS: BASO % 0.4 % (0-2.0); EOS % 2.6 % (0-4.5); HEMATOCRIT 36.1 % (32.4-45.2); HEMOGLOBIN 11.9 GM/dL (10.7-15.3); LYMPH % 8.1 % (8-40); MCH 30.7 pg (25.7-33.7); MEAN PLT VOLUME 8.2 fl (7.5-11.1); MONO % 6.6 % (3.8-10.2); NEUT % 82.3 % (42.8-82.8); PLATELET COUNT 240 K/MM3 (134-434); RBC 3.88 M/mm3 (3.60-5.2); RDW 20.6 % (11.6-15.6); WHITE BLOOD COUNT 8.4 K/mm3 (4.0-10.0)
[2020-09-30 13:03] LABS: INR 1.13 (0.83-1.09); PROTHROMBIN TIME (PATIENT) 13.6 SEC (9.7-13.0)
[2020-09-30 13:09] LABS: CHLORIDE 106 mmol/L (98-107); SODIUM 143 mmol/L (136-145)
[2020-09-30 13:12] LABS: ANION GAP 8 MMOL/L (8-16); BLOOD UREA NITROGEN 36.2 mg/dL (7-18); CO2 30 mmol/L (21-32); GLUCOSE,RANDOM 88 mg/dL (74-106); MAGNESIUM 2.4 mg/dL (1.8-2.4)
[2020-09-30 13:15] LABS: ALBUMIN 2.7 g/dl (3.4-5.0); CALCIUM 9.7 mg/dL (8.5-10.1); CREATININE 1.4 mg/dL (0.55-1.3); SGOT/AST 29 U/L (15-37); SGPT/ALT 33 U/L (13-61)
[2020-09-30 13:16] LABS: BILIRUBIN,TOTAL 0.4 mg/dL (0.2-1)
[2020-09-30 13:18] LABS: ALK PHOS 86 U/L (45-117)
[2020-09-30 13:59] LABS: LACTIC ACID 2.1 mmol/L (0.4-2.0)
[2020-09-30] MEDS ORDERED: SODIUM CHLORIDE 1,000 ML IV SCH (14:15)
[2020-09-30 14:29] LABS: IRON SERUM 45 ug/dL (50-175); TOTAL IRON BINDING CAPACITY 246 ug/dL (250-450)
[2020-09-30 14:49] LABS: ANISOCYTOSIS 1+; MACROCYTOSIS 1+; PLATELET ESTIMATE NORMAL
[2020-09-30] MEDS ORDERED: DEXTROSE 5%-0.45% SALINE 1,000 ML IV SCH (22:45)
[2020-09-30] MEDS ORDERED: PANTOPRAZOLE SODIUM 40 MG VIAL IVPUSH ONE (23:03)
[2020-10-01 06:03] VITALS: BMI 16.5
[2020-10-01 08:35] LABS: BASO % 0.5 % (0-2.0); EOS % 1.7 % (0-4.5); HEMATOCRIT 34.3 % (32.4-45.2); HEMOGLOBIN 11.5 GM/dL (10.7-15.3); LYMPH % 13.1 % (8-40); MCH 30.9 pg (25.7-33.7); MCHC 33.6 g/dl (32.0-36.0); MEAN PLT VOLUME 9.5 fl (7.5-11.1); MONO % 10.5 % (3.8-10.2); NEUT % 74.2 % (42.8-82.8); PLATELET COUNT 223 K/MM3 (134-434); RBC 3.72 M/mm3 (3.60-5.2); RDW 21.1 % (11.6-15.6); WHITE BLOOD COUNT 5.1 K/mm3 (4.0-10.0)
[2020-10-01 09:49] LABS: BLOOD UREA NITROGEN 34.2 mg/dL (7-18); CALCIUM 8.5 mg/dL (8.5-10.1)
[2020-10-01 09:52] LABS: CREATININE 1.1 mg/dL (0.55-1.3)
[2020-10-01] MEDS ORDERED: PANTOPRAZOLE SODIUM 40 MG VIAL IVPUSH SCH (10:00)
[2020-10-01] MEDS ORDERED: PANTOPRAZOLE 40 MG TABLET PO SCH (10:00)
[2020-10-01] MEDS: POLYETHYLENE GLYCOL 3350 119 GM BTL PO SCH ×2 (10:17→22:08)
[2020-10-01 22:07] VITALS: BP 121/58; PULSE 55; TEMP 97.9
== END 2020-10-01 23:00 ==
LOC: JER 11:29 → JERBED 13:22 → INTOOBSV 13:22 → J8W 20:50
PROVIDERS: ADMIT Internal Medicine; ATTEND Family Medicine
PROC: 3E033GC Introduction of Other Therapeutic Substance into Peripheral Vein, Percutaneous Approach (ICD-10-PCS; principal; 2020-09-30)
DX: K92.2 Gastrointestinal hemorrhage, unspecified (principal); K56.41 Fecal impaction; K64.8 Other hemorrhoids; N17.9 Acute kidney failure, unspecified; C90.00 Multiple myeloma not having achieved remission; I11.0 Hypertensive heart disease with heart failure; I50.30 Unspecified diastolic (congestive) heart failure; I48.91 Unspecified atrial fibrillation; Z79.01 Long term (current) use of anticoagulants; D51.0 Vitamin B12 deficiency anemia due to intrinsic factor deficiency; D49.0 Neoplasm of unspecified behavior of digestive system; E78.00 Pure hypercholesterolemia, unspecified; F03.90 Unspecified dementia, unspecified severity, without behavioral disturbance, psychotic disturbance, mood disturbance, and anxiety; E89.0 Postprocedural hypothyroidism; I83.018 Varicose veins of right lower extremity with ulcer other part of lower leg; I83.028 Varicose veins of left lower extremity with ulcer other part of lower leg; Z20.822 Contact with and (suspected) exposure to COVID-19
CPT/HCPCS: 36415; 71045-TC-FY; 74177-TC; 80048; 80053; 82272; 82550; 82962; 83540; 83550; 83605; 83735; 84484; 85025; 85610; 85730; 93005; 93010; 96374; 96376; 99285-25; C9803; G0378; Q9967; U0003; U0005

== ENCOUNTER 2020-10-02 01:39 | Emergency (ER) | payer OTHER ==
[2020-10-02 02:16] VITALS: BMI 22.6
[2020-10-02 09:12] VITALS: BP 126/51; PULSE 54; TEMP 97.6
== END 2020-10-02 09:22 | disposition home or self-care (01) ==
LOC: JER 01:39
DX: R03.1 Nonspecific low blood-pressure reading (principal)
CPT/HCPCS: 82962; 99283-25

== ENCOUNTER 2020-10-09 10:46 | Inpatient (IN) | payer OTHER, BC, MEDICARE ==
[2020-10-09 10:54] VITALS: BMI 16.6
[2020-10-09] MEDS ORDERED: CLINDAMYCIN IVPB 300 MG in DEXTROSE 5%-WATER - 48 ML IVPB ONE (11:22)
[2020-10-09] MEDS ORDERED: VANCOMYCIN 1 GM in D5W (PRE-DOCKED) 1,000 MG/250 ML IVPB ONE (11:22)
[2020-10-09] MEDS ORDERED: CLINDAMYCIN PHOSPHATE 600 MG/4 ML VIAL ONE (11:36)
[2020-10-09] MEDS ORDERED: VANCOMYCIN 1 GRAM (PRE-DOCKED) 1,000 MG/250 ML BAG IVPB ONE (11:37)
[2020-10-09 12:28] LABS: BASO % 0.6 % (0-2.0); EOS % 5.8 % (0-4.5); HEMOGLOBIN 12.6 GM/dL (10.7-15.3); LYMPH % 10.6 % (8-40); MCH 30.4 pg (25.7-33.7); MCHC 33.1 g/dl (32.0-36.0); MEAN PLT VOLUME 8.2 fl (7.5-11.1); PLATELET COUNT 163 10^3/uL (134-434); RBC 4.13 M/mm3 (3.60-5.2); RDW 21.3 % (11.6-15.6); WHITE BLOOD COUNT 5.3 K/mm3 (4.0-10.0)
[2020-10-09 12:35] LABS: INR 0.92 (0.83-1.09); PROTHROMBIN TIME (PATIENT) 11.4 SEC (9.7-13.0)
[2020-10-09 12:37] LABS: ACTIVATED PTT 32.8 SECONDS (25.2-36.5)
[2020-10-09 12:53] LABS: CALCIUM 9.7 mg/dL (8.5-10.1)
[2020-10-09 12:54] LABS: ALBUMIN 2.9 g/dl (3.4-5.0); BLOOD UREA NITROGEN 30.5 mg/dL (7-18)
[2020-10-09 12:57] LABS: ANISOCYTOSIS 1+; CREATININE 1.2 mg/dL (0.55-1.3); MACROCYTOSIS 0; PLATELET ESTIMATE NORMAL
[2020-10-09 12:58] LABS: BILIRUBIN,TOTAL 0.4 mg/dL (0.2-1)
[2020-10-09] MEDS ORDERED: ACETAMINOPHEN 325 MG TABLET (FP) PO PRN (14:04)
[2020-10-09] MEDS: MIDODRINE HCL 2.5 MG TABLET PO SCH (19:03)
[2020-10-09] MEDS: HEPARIN NA (PORCINE) 5,000 UNITS/ML 1ML VIAL SQ SCH (21:05)
[2020-10-09] MEDS: MEMANTINE HCL 5 MG TABLET (UD) PO SCH (21:06)
[2020-10-09] MEDS: ATORVASTATIN CA 20 MG TABLET (FP) PO SCH (21:06)
[2020-10-09] MEDS: GABAPENTIN 300 MG CAPSULE PO SCH (21:06)
[2020-10-09] MEDS: PRAMIPEXOLE DIHYDROCHLORIDE 0.25 MG TABLET PO SCH (21:06)
[2020-10-10] MEDS: PRAMIPEXOLE DIHYDROCHLORIDE 0.25 MG TABLET PO SCH ×3 (05:39→22:17)
[2020-10-10] MEDS: GABAPENTIN 300 MG CAPSULE PO SCH ×3 (05:39→22:17)
[2020-10-10] MEDS ORDERED: PIPERACILLIN/TAZOB 3.375 GM 3.375 GM in DEXTROSE 5%-WATER - 50 ML IVPB ONE (06:01)
[2020-10-10] MEDS ORDERED: DEXTROSE 5%-WATER - 50 ML IVPB ONE ×2 (06:31→16:49)
[2020-10-10] MEDS ORDERED: PIPERACILLIN/TAZOBACTAM 3.375 GM VIAL IVPB ONE ×2 (06:31→16:49)
[2020-10-10] MEDS: MEMANTINE HCL 5 MG TABLET (UD) PO SCH ×2 (09:13→22:17)
[2020-10-10] MEDS: PANTOPRAZOLE 20 MG TABLET PO SCH (09:13)
[2020-10-10] MEDS: MIDODRINE HCL 2.5 MG TABLET PO SCH ×2 (09:13→17:20)
[2020-10-10] MEDS: HEPARIN NA (PORCINE) 5,000 UNITS/ML 1ML VIAL SQ SCH ×2 (09:13→22:17)
[2020-10-10] MEDS ORDERED: metoPROLOL SUCCINATE 25 MG TAB.SR.24H (FP) PO SCH (10:00)
[2020-10-10] MEDS: PIPERACILLIN/TAZOB 3.375 GM 3.375 GM in DEXTROSE 5%-WATER - 50 ML IVPB SCH (17:19)
[2020-10-10] MEDS: COLLAGENASE CLOSTRIDIUM HIST. 30 GRAMS TUBE TP SCH (17:19)
[2020-10-10] MEDS: ATORVASTATIN CA 20 MG TABLET (FP) PO SCH (22:17)
[2020-10-11] MEDS ORDERED: PIPERACILLIN/TAZOBACTAM 3.375 GM VIAL IVPB ONE ×3 (02:57→14:27)
[2020-10-11] MEDS ORDERED: DEXTROSE 5%-WATER - 50 ML IVPB ONE ×3 (02:57→14:28)
[2020-10-11] MEDS: PIPERACILLIN/TAZOB 3.375 GM 3.375 GM in DEXTROSE 5%-WATER - 50 ML IVPB SCH ×3 (03:00→17:05)
[2020-10-11] MEDS: GABAPENTIN 300 MG CAPSULE PO SCH ×3 (06:15→22:07)
[2020-10-11] MEDS: PRAMIPEXOLE DIHYDROCHLORIDE 0.25 MG TABLET PO SCH ×3 (06:15→22:07)
[2020-10-11] MEDS ORDERED: traMADol HCL 50 MG TABLET PO PRN (08:50)
[2020-10-11] MEDS ORDERED: ACETAMINOPHEN 325 MG TABLET (FP) PO PRN (08:52)
[2020-10-11] MEDS: COLLAGENASE CLOSTRIDIUM HIST. 30 GRAMS TUBE TP SCH (09:21)
[2020-10-11] MEDS: FUROSEMIDE 20 MG TABLET (FP) PO SCH (09:22)
[2020-10-11] MEDS: ASCORBIC ACID 500 MG TABLET (FP) PO SCH ×2 (09:22→22:07)
[2020-10-11] MEDS: POTASSIUM CHLORIDE TABS 20 MEQ TABLET.ER (FP) PO SCH (09:22)
[2020-10-11] MEDS: LEVOTHYROXINE NA 75 MCG TABLET (FP) PO SCH (09:22)
[2020-10-11] MEDS: MULTIVITAMINS (DAILY MVI) TABLET (FP) PO SCH (09:22)
[2020-10-11] MEDS: valACYclovir HCL 500 MG TABLET (FP) PO SCH (09:22)
[2020-10-11] MEDS: APIXABAN 2.5 MG TABLET PO SCH ×2 (09:22→22:07)
[2020-10-11] MEDS: MEMANTINE HCL 5 MG TABLET (UD) PO SCH ×2 (09:23→22:07)
[2020-10-11] MEDS: PANTOPRAZOLE 20 MG TABLET PO SCH (09:23)
[2020-10-11 13:23] LABS: BASO % 1.5 % (0-2.0); EOS % 8.9 % (0-4.5); HEMATOCRIT 34.1 % (32.4-45.2); HEMOGLOBIN 11.1 GM/dL (10.7-15.3); MCHC 32.5 g/dl (32.0-36.0); MEAN CELL VOLUME 92.4 fl (80-96); MEAN PLT VOLUME 8.7 fl (7.5-11.1); MONO % 16.7 % (3.8-10.2); NEUT % 57.9 % (42.8-82.8); PLATELET COUNT 120 10^3/uL (134-434); RDW 21.1 % (11.6-15.6); WHITE BLOOD COUNT 3.5 K/mm3 (4.0-10.0)
[2020-10-11 13:49] LABS: ALBUMIN 2.4 g/dl (3.4-5.0); BLOOD UREA NITROGEN 13.5 mg/dL (7-18)
[2020-10-11 13:52] LABS: CREATININE 0.9 mg/dL (0.55-1.3)
[2020-10-11 13:53] LABS: BILIRUBIN,TOTAL 0.5 mg/dL (0.2-1)
[2020-10-11 13:54] LABS: TOT PROT 4.8 g/dl (6.4-8.2)
[2020-10-11 13:55] LABS: CALCIUM 8.2 mg/dL (8.5-10.1)
[2020-10-11] MEDS: AMINO ACIDS/PROTEIN HYDROLYS 30 ML LIQUID.PKT PO SCH (16:29)
[2020-10-11] MEDS: ATORVASTATIN CA 20 MG TABLET (FP) PO SCH (22:07)
[2020-10-12] MEDS ORDERED: DEXTROSE 5%-WATER - 50 ML IVPB ONE ×4 (01:06→23:47)
[2020-10-12] MEDS ORDERED: PIPERACILLIN/TAZOBACTAM 3.375 GM VIAL IVPB ONE ×4 (01:06→23:47)
[2020-10-12] MEDS: PIPERACILLIN/TAZOB 3.375 GM 3.375 GM in DEXTROSE 5%-WATER - 50 ML IVPB SCH ×3 (01:50→17:19)
[2020-10-12] MEDS: GABAPENTIN 300 MG CAPSULE PO SCH ×3 (06:14→21:53)
[2020-10-12] MEDS: PRAMIPEXOLE DIHYDROCHLORIDE 0.25 MG TABLET PO SCH ×3 (06:14→21:53)
[2020-10-12] MEDS: LEVOTHYROXINE NA 75 MCG TABLET (FP) PO SCH (06:14)
[2020-10-12] MEDS: AMINO ACIDS/PROTEIN HYDROLYS 30 ML LIQUID.PKT PO SCH ×2 (09:02→16:44)
[2020-10-12] MEDS: APIXABAN 2.5 MG TABLET PO SCH ×2 (09:03→21:53)
[2020-10-12] MEDS: PANTOPRAZOLE 20 MG TABLET PO SCH (09:03)
[2020-10-12] MEDS: POTASSIUM CHLORIDE TABS 20 MEQ TABLET.ER (FP) PO SCH (09:03)
[2020-10-12] MEDS: MULTIVITAMINS (DAILY MVI) TABLET (FP) PO SCH (09:05)
[2020-10-12] MEDS: MEMANTINE HCL 5 MG TABLET (UD) PO SCH ×2 (09:05→21:53)
[2020-10-12] MEDS: ASCORBIC ACID 500 MG TABLET (FP) PO SCH ×2 (09:05→21:53)
[2020-10-12] MEDS: valACYclovir HCL 500 MG TABLET (FP) PO SCH (09:05)
[2020-10-12] MEDS: COLLAGENASE CLOSTRIDIUM HIST. 30 GRAMS TUBE TP SCH (09:06)
[2020-10-12] MEDS: ATORVASTATIN CA 20 MG TABLET (FP) PO SCH (21:53)
[2020-10-13] MEDS: PIPERACILLIN/TAZOB 3.375 GM 3.375 GM in DEXTROSE 5%-WATER - 50 ML IVPB SCH ×3 (01:00→17:43)
[2020-10-13] MEDS: PRAMIPEXOLE DIHYDROCHLORIDE 0.25 MG TABLET PO SCH ×3 (06:16→21:38)
[2020-10-13] MEDS: LEVOTHYROXINE NA 75 MCG TABLET (FP) PO SCH (06:16)
[2020-10-13] MEDS: GABAPENTIN 300 MG CAPSULE PO SCH ×3 (06:16→21:39)
[2020-10-13] MEDS ORDERED: DEXTROSE 5%-WATER - 50 ML IVPB ONE ×2 (09:44→17:25)
[2020-10-13] MEDS ORDERED: PIPERACILLIN/TAZOBACTAM 3.375 GM VIAL IVPB ONE ×2 (09:44→17:25)
[2020-10-13] MEDS ORDERED: FAMOTIDINE 20 MG TABLET PO SCH (10:00)
[2020-10-13] MEDS ORDERED: COLLAGENASE CLOSTRIDIUM HIST. 30 GRAMS TUBE TP SCH (10:14)
[2020-10-13] MEDS: AMINO ACIDS/PROTEIN HYDROLYS 30 ML LIQUID.PKT PO SCH ×2 (11:35→17:42)
[2020-10-13] MEDS: ASCORBIC ACID 500 MG TABLET (FP) PO SCH ×2 (11:37→21:38)
[2020-10-13] MEDS: MEMANTINE HCL 5 MG TABLET (UD) PO SCH ×2 (11:37→21:38)
[2020-10-13] MEDS: MULTIVITAMINS (DAILY MVI) TABLET (FP) PO SCH (11:37)
[2020-10-13] MEDS: POTASSIUM CHLORIDE TABS 20 MEQ TABLET.ER (FP) PO SCH (11:37)
[2020-10-13] MEDS: PANTOPRAZOLE 20 MG TABLET PO SCH (11:37)
[2020-10-13] MEDS: APIXABAN 2.5 MG TABLET PO SCH (11:37)
[2020-10-13] MEDS: valACYclovir HCL 500 MG TABLET (FP) PO SCH (11:37)
[2020-10-13] MEDS: FUROSEMIDE 20 MG TABLET (FP) PO SCH (11:37)
[2020-10-13] MEDS: COLLAGENASE CLOSTRIDIUM HIST. 30 GRAMS TUBE TP SCH (12:29)
[2020-10-13] MEDS: ATORVASTATIN CA 20 MG TABLET (FP) PO SCH (21:38)
[2020-10-14] MEDS ORDERED: PIPERACILLIN/TAZOBACTAM 3.375 GM VIAL IVPB ONE ×2 (02:18→08:34)
[2020-10-14] MEDS ORDERED: DEXTROSE 5%-WATER - 50 ML IVPB ONE ×2 (02:18→08:34)
[2020-10-14] MEDS: PIPERACILLIN/TAZOB 3.375 GM 3.375 GM in DEXTROSE 5%-WATER - 50 ML IVPB SCH ×4 (02:30→17:27)
[2020-10-14] MEDS: GABAPENTIN 300 MG CAPSULE PO SCH ×4 (06:15→21:15)
[2020-10-14] MEDS: LEVOTHYROXINE NA 75 MCG TABLET (FP) PO SCH ×2 (06:15→06:17)
[2020-10-14] MEDS: PRAMIPEXOLE DIHYDROCHLORIDE 0.25 MG TABLET PO SCH ×4 (06:15→21:15)
[2020-10-14] MEDS: AMINO ACIDS/PROTEIN HYDROLYS 30 ML LIQUID.PKT PO SCH ×2 (09:07→17:13)
[2020-10-14] MEDS: MULTIVITAMINS (DAILY MVI) TABLET (FP) PO SCH (09:08)
[2020-10-14] MEDS: MEMANTINE HCL 5 MG TABLET (UD) PO SCH ×2 (09:08→21:15)
[2020-10-14] MEDS: valACYclovir HCL 500 MG TABLET (FP) PO SCH (09:08)
[2020-10-14] MEDS: PANTOPRAZOLE 20 MG TABLET PO SCH (09:08)
[2020-10-14] MEDS: ASCORBIC ACID 500 MG TABLET (FP) PO SCH ×2 (09:08→21:15)
[2020-10-14] MEDS: POTASSIUM CHLORIDE TABS 20 MEQ TABLET.ER (FP) PO SCH (09:08)
[2020-10-14] MEDS ORDERED: DEXTROSE 5%-0.45% SALINE 1,000 ML IV SCH (11:00)
[2020-10-14] MEDS ORDERED: PROPOFOL 20 ML ONE ×2 (16:42)
[2020-10-14] MEDS ORDERED: MIDAZOLAM HCL 2 MG/2 ML SINGLE DOSE VIAL ONE (16:42)
[2020-10-14] MEDS ORDERED: HEPARIN NA (PORCINE) 5,000 UNITS/ML 1ML VIAL ONE (16:50)
[2020-10-14] MEDS ORDERED: LIDOCAINE HCL 1%, 10 MG/ML (20ML VIAL) ONE (16:50)
[2020-10-14] MEDS ORDERED: ONDANSETRON 4 MG/2 ML VIAL IVPUSH PRN ×2 (17:18→19:33)
[2020-10-14] MEDS ORDERED: oxyCODONE HCL 5 MG TABLET PO PRN ×2 (17:18→19:33)
[2020-10-14] MEDS ORDERED: ceFAZolin SODIUM 1 GM VIAL IVPB ONE (17:20)
[2020-10-14] MEDS ORDERED: LIDOCAINE HCL 1% PRESERVATIVE FREE - 30ML VIAL IJ ONE ×2 (17:23)
[2020-10-14] MEDS ORDERED: IOHEXOL 300 MG/ML INFUS..BTL IV ONE (17:25)
[2020-10-14] MEDS ORDERED: HEPARIN NA (PORCINE) 5,000 UNITS/ML 1ML VIAL SQ ONE (17:25)
[2020-10-14] MEDS ORDERED: ePHEDrine SULFATE 50 MG/1 ML AMPULE ONE (17:45)
[2020-10-14] MEDS ORDERED: EPHEDRINE SULFATE/0.9% NACL/PF 50 MG/10 ML SYRINGE NR ONE (17:46)
[2020-10-14] MEDS ORDERED: traMADol HCL 50 MG TABLET PO PRN (19:33)
[2020-10-14] MEDS ORDERED: ACETAMINOPHEN 325 MG TABLET (FP) PO PRN (19:33)
[2020-10-14] MEDS: APIXABAN 2.5 MG TABLET PO SCH (21:11)
[2020-10-14] MEDS: ATORVASTATIN CA 20 MG TABLET (FP) PO SCH (21:15)
[2020-10-14] MEDS: DEXTROSE 5%-0.45% SALINE 1,000 ML IV SCH (21:16)
[2020-10-15] MEDS ORDERED: PIPERACILLIN/TAZOBACTAM 3.375 GM VIAL IVPB ONE ×3 (01:47→16:36)
[2020-10-15] MEDS ORDERED: DEXTROSE 5%-WATER - 50 ML IVPB ONE ×3 (01:47→16:36)
[2020-10-15] MEDS: PIPERACILLIN/TAZOB 3.375 GM 3.375 GM in DEXTROSE 5%-WATER - 50 ML IVPB SCH ×3 (02:14→17:43)
[2020-10-15] MEDS: LEVOTHYROXINE NA 75 MCG TABLET (FP) PO SCH (06:22)
[2020-10-15] MEDS: GABAPENTIN 300 MG CAPSULE PO SCH ×3 (06:22→21:30)
[2020-10-15] MEDS: PRAMIPEXOLE DIHYDROCHLORIDE 0.25 MG TABLET PO SCH ×3 (06:22→21:30)
[2020-10-15] MEDS: AMINO ACIDS/PROTEIN HYDROLYS 30 ML LIQUID.PKT PO SCH ×2 (10:08→17:43)
[2020-10-15] MEDS: ASCORBIC ACID 500 MG TABLET (FP) PO SCH ×2 (10:08→21:30)
[2020-10-15] MEDS: POTASSIUM CHLORIDE TABS 20 MEQ TABLET.ER (FP) PO SCH (10:08)
[2020-10-15] MEDS: PANTOPRAZOLE 20 MG TABLET PO SCH (10:08)
[2020-10-15] MEDS: MEMANTINE HCL 5 MG TABLET (UD) PO SCH ×2 (10:08→21:29)
[2020-10-15] MEDS: valACYclovir HCL 500 MG TABLET (FP) PO SCH (10:09)
[2020-10-15] MEDS: FUROSEMIDE 20 MG TABLET (FP) PO SCH (10:09)
[2020-10-15] MEDS: APIXABAN 2.5 MG TABLET PO SCH ×2 (10:09→21:29)
[2020-10-15] MEDS: COLLAGENASE CLOSTRIDIUM HIST. 30 GRAMS TUBE TP SCH (10:09)
[2020-10-15] MEDS: MULTIVITAMINS (DAILY MVI) TABLET (FP) PO SCH (10:09)
[2020-10-15] MEDS: DEXTROSE 5%-0.45% SALINE 1,000 ML IV SCH (21:28)
[2020-10-15] MEDS: ATORVASTATIN CA 20 MG TABLET (FP) PO SCH (21:30)
[2020-10-16] MEDS ORDERED: DEXTROSE 5%-WATER - 50 ML IVPB ONE ×3 (02:38→17:05)
[2020-10-16] MEDS ORDERED: PIPERACILLIN/TAZOBACTAM 3.375 GM VIAL IVPB ONE ×3 (02:38→17:05)
[2020-10-16] MEDS: PIPERACILLIN/TAZOB 3.375 GM 3.375 GM in DEXTROSE 5%-WATER - 50 ML IVPB SCH ×3 (02:40→17:21)
[2020-10-16] MEDS: PRAMIPEXOLE DIHYDROCHLORIDE 0.25 MG TABLET PO SCH ×3 (06:02→21:52)
[2020-10-16] MEDS: GABAPENTIN 300 MG CAPSULE PO SCH ×3 (06:02→21:52)
[2020-10-16] MEDS: LEVOTHYROXINE NA 75 MCG TABLET (FP) PO SCH (06:02)
[2020-10-16] MEDS: MEMANTINE HCL 5 MG TABLET (UD) PO SCH ×2 (09:19→21:52)
[2020-10-16] MEDS: APIXABAN 2.5 MG TABLET PO SCH ×2 (09:19→21:52)
[2020-10-16] MEDS: AMINO ACIDS/PROTEIN HYDROLYS 30 ML LIQUID.PKT PO SCH ×2 (09:19→17:21)
[2020-10-16] MEDS: POTASSIUM CHLORIDE TABS 20 MEQ TABLET.ER (FP) PO SCH (09:19)
[2020-10-16] MEDS: PANTOPRAZOLE 20 MG TABLET PO SCH (09:19)
[2020-10-16] MEDS: ASCORBIC ACID 500 MG TABLET (FP) PO SCH ×2 (09:20→21:52)
[2020-10-16] MEDS: MULTIVITAMINS (DAILY MVI) TABLET (FP) PO SCH (09:20)
[2020-10-16] MEDS: valACYclovir HCL 500 MG TABLET (FP) PO SCH (09:20)
[2020-10-16] MEDS: COLLAGENASE CLOSTRIDIUM HIST. 30 GRAMS TUBE TP SCH (10:13)
[2020-10-16] MEDS: DEXTROSE 5%-0.45% SALINE 1,000 ML IV SCH (20:15)
[2020-10-16] MEDS: ATORVASTATIN CA 20 MG TABLET (FP) PO SCH (21:52)
[2020-10-17] MEDS ORDERED: DEXTROSE 5%-WATER - 50 ML IVPB ONE ×3 (00:56→16:53)
[2020-10-17] MEDS ORDERED: PIPERACILLIN/TAZOBACTAM 3.375 GM VIAL IVPB ONE ×3 (00:56→16:53)
[2020-10-17] MEDS: PIPERACILLIN/TAZOB 3.375 GM 3.375 GM in DEXTROSE 5%-WATER - 50 ML IVPB SCH ×3 (01:19→17:08)
[2020-10-17] MEDS: GABAPENTIN 300 MG CAPSULE PO SCH ×3 (06:09→21:42)
[2020-10-17] MEDS: LEVOTHYROXINE NA 75 MCG TABLET (FP) PO SCH (06:09)
[2020-10-17] MEDS: PRAMIPEXOLE DIHYDROCHLORIDE 0.25 MG TABLET PO SCH ×3 (06:09→21:42)
[2020-10-17] MEDS: FUROSEMIDE 20 MG TABLET (FP) PO SCH (09:32)
[2020-10-17] MEDS: PANTOPRAZOLE 20 MG TABLET PO SCH (09:32)
[2020-10-17] MEDS: ASCORBIC ACID 500 MG TABLET (FP) PO SCH ×2 (09:32→21:42)
[2020-10-17] MEDS: MEMANTINE HCL 5 MG TABLET (UD) PO SCH ×2 (09:32→21:42)
[2020-10-17] MEDS: valACYclovir HCL 500 MG TABLET (FP) PO SCH (09:32)
[2020-10-17] MEDS: MULTIVITAMINS (DAILY MVI) TABLET (FP) PO SCH (09:32)
[2020-10-17] MEDS: APIXABAN 2.5 MG TABLET PO SCH ×2 (09:32→21:42)
[2020-10-17] MEDS: POTASSIUM CHLORIDE TABS 20 MEQ TABLET.ER (FP) PO SCH (09:32)
[2020-10-17] MEDS: AMINO ACIDS/PROTEIN HYDROLYS 30 ML LIQUID.PKT PO SCH ×2 (09:32→17:08)
[2020-10-17 10:47] LABS: HEMATOCRIT 31.9 % (32.4-45.2); HEMOGLOBIN 10.5 GM/dL (10.7-15.3); MCH 30.9 pg (25.7-33.7); MEAN CELL VOLUME 93.5 fl (80-96); MEAN PLT VOLUME 7.8 fl (7.5-11.1); PLATELET COUNT 126 10^3/uL (134-434); RBC 3.41 M/mm3 (3.60-5.2); RDW 22.1 % (11.6-15.6); WHITE BLOOD COUNT 2.8 K/mm3 (4.0-10.0)
[2020-10-17 11:08] LABS: BLOOD UREA NITROGEN 7.3 mg/dL (7-18); CALCIUM 8.8 mg/dL (8.5-10.1)
[2020-10-17 11:19] LABS: CREATININE 0.7 mg/dL (0.55-1.3)
[2020-10-17] MEDS: COLLAGENASE CLOSTRIDIUM HIST. 30 GRAMS TUBE TP SCH (15:30)
[2020-10-17] MEDS: ATORVASTATIN CA 20 MG TABLET (FP) PO SCH (21:42)
[2020-10-17] MEDS: DEXTROSE 5%-0.45% SALINE 1,000 ML IV SCH (21:43)
[2020-10-18] MEDS ORDERED: DEXTROSE 5%-WATER - 50 ML IVPB ONE ×2 (01:48→09:01)
[2020-10-18] MEDS ORDERED: PIPERACILLIN/TAZOBACTAM 3.375 GM VIAL IVPB ONE ×2 (01:48→09:01)
[2020-10-18] MEDS: PIPERACILLIN/TAZOB 3.375 GM 3.375 GM in DEXTROSE 5%-WATER - 50 ML IVPB SCH ×2 (01:54→09:13)
[2020-10-18] MEDS: DEXTROSE 5%-0.45% SALINE 1,000 ML IV SCH ×2 (06:47→19:58)
[2020-10-18] MEDS: LEVOTHYROXINE NA 75 MCG TABLET (FP) PO SCH (06:47)
[2020-10-18] MEDS: PRAMIPEXOLE DIHYDROCHLORIDE 0.25 MG TABLET PO SCH ×3 (06:47→21:30)
[2020-10-18] MEDS: GABAPENTIN 300 MG CAPSULE PO SCH ×3 (06:47→21:30)
[2020-10-18] MEDS: AMINO ACIDS/PROTEIN HYDROLYS 30 ML LIQUID.PKT PO SCH ×2 (09:03→17:22)
[2020-10-18] MEDS: POTASSIUM CHLORIDE TABS 20 MEQ TABLET.ER (FP) PO SCH (09:03)
[2020-10-18] MEDS: ASCORBIC ACID 500 MG TABLET (FP) PO SCH ×2 (09:04→21:30)
[2020-10-18] MEDS: valACYclovir HCL 500 MG TABLET (FP) PO SCH (09:04)
[2020-10-18] MEDS: PANTOPRAZOLE 20 MG TABLET PO SCH (09:04)
[2020-10-18] MEDS: APIXABAN 2.5 MG TABLET PO SCH ×2 (09:04→21:30)
[2020-10-18] MEDS: MULTIVITAMINS (DAILY MVI) TABLET (FP) PO SCH (09:04)
[2020-10-18] MEDS: MEMANTINE HCL 5 MG TABLET (UD) PO SCH ×2 (09:04→21:30)
[2020-10-18] MEDS: COLLAGENASE CLOSTRIDIUM HIST. 30 GRAMS TUBE TP SCH (09:05)
[2020-10-18] MEDS: AMOX TR/POT CLAV 500MG/125MG TABLETS (FP) PO SCH (17:22)
[2020-10-18] MEDS: ATORVASTATIN CA 20 MG TABLET (FP) PO SCH (21:30)
[2020-10-19] MEDS: GABAPENTIN 300 MG CAPSULE PO SCH (06:56)
[2020-10-19] MEDS: PRAMIPEXOLE DIHYDROCHLORIDE 0.25 MG TABLET PO SCH (06:56)
[2020-10-19] MEDS: LEVOTHYROXINE NA 75 MCG TABLET (FP) PO SCH (06:56)
[2020-10-19] MEDS: AMOX TR/POT CLAV 500MG/125MG TABLETS (FP) PO SCH (08:30)
[2020-10-19] MEDS: AMINO ACIDS/PROTEIN HYDROLYS 30 ML LIQUID.PKT PO SCH (09:05)
[2020-10-19] MEDS: APIXABAN 2.5 MG TABLET PO SCH (09:05)
[2020-10-19] MEDS: PANTOPRAZOLE 20 MG TABLET PO SCH (09:05)
[2020-10-19] MEDS: MEMANTINE HCL 5 MG TABLET (UD) PO SCH (09:05)
[2020-10-19] MEDS: MULTIVITAMINS (DAILY MVI) TABLET (FP) PO SCH (09:05)
[2020-10-19] MEDS: valACYclovir HCL 500 MG TABLET (FP) PO SCH (09:05)
[2020-10-19] MEDS: FUROSEMIDE 20 MG TABLET (FP) PO SCH (09:05)
[2020-10-19] MEDS: ASCORBIC ACID 500 MG TABLET (FP) PO SCH (09:05)
[2020-10-19] MEDS: POTASSIUM CHLORIDE TABS 20 MEQ TABLET.ER (FP) PO SCH (09:05)
[2020-10-19] MEDS: COLLAGENASE CLOSTRIDIUM HIST. 30 GRAMS TUBE TP SCH (09:06)
[2020-10-19 10:28] VITALS: BP 116/52; PULSE 58; TEMP 98
== END 2020-10-19 11:58 | DRG 981 ==
LOC: JER 10:46 → JERBED 11:22 → J7W 17:08 → J6S 10-16 16:43
PROVIDERS: ADMIT Family Medicine; ATTEND Family Medicine
PROC: B40FYZZ Plain Radiography of Right Lower Extremity Arteries using Other Contrast (ICD-10-PCS; 2020-10-14)
PROC: B40DYZZ Plain Radiography of Aorta and Bilateral Lower Extremity Arteries using Other Contrast (ICD-10-PCS; 2020-10-14)
PROC: 047P3ZZ Dilation of Right Anterior Tibial Artery, Percutaneous Approach (ICD-10-PCS; principal; 2020-10-14 17:00)
DX: T87.43 Infection of amputation stump, right lower extremity (principal); E43 Unspecified severe protein-calorie malnutrition; C90.00 Multiple myeloma not having achieved remission; R64 Cachexia; Z68.1 Body mass index [BMI] 19.9 or less, adult; I10 Essential (primary) hypertension; I48.91 Unspecified atrial fibrillation; Z79.01 Long term (current) use of anticoagulants; K74.60 Unspecified cirrhosis of liver; E03.9 Hypothyroidism, unspecified; F03.90 Unspecified dementia, unspecified severity, without behavioral disturbance, psychotic disturbance, mood disturbance, and anxiety; E11.51 Type 2 diabetes mellitus with diabetic peripheral angiopathy without gangrene; D64.9 Anemia, unspecified; R00.1 Bradycardia, unspecified; Y83.5 Amputation of limb(s) as the cause of abnormal reaction of the patient, or of later complication, without mention of misadventure at the time of the procedure
CPT/HCPCS: 36415; 73630-TC-RT-FY; 73660-TC-FY; 75635-TC; 76000-TC-FY; 80048; 80053; 83036; 85025; 85027; 85610; 85730; 86850; 86900; 86901; 87040; 87186; 93005; 93010; 94760; 97116-GP; 97161-GP; 99285-25; C9803; G0463-25; J1644; U0003; U0005

== ENCOUNTER 2020-12-15 15:19 | Emergency (ER) | payer OTHER ==
[2020-12-15 15:39] VITALS: BMI 19.1
[2020-12-15 17:30] LABS: BASO % 1.3 % (0-2.0); HEMATOCRIT 37.9 % (32.4-45.2); HEMOGLOBIN 12.7 GM/dL (10.7-15.3); MCHC 33.6 g/dl (32.0-36.0); MEAN CELL VOLUME 95.3 fl (80-96); MEAN PLT VOLUME 8.2 fl (7.5-11.1); NEUT % 66.7 % (42.8-82.8); PLATELET COUNT 171 10^3/uL (134-434); RBC 3.98 M/mm3 (3.60-5.2); RDW 20.7 % (11.6-15.6); WHITE BLOOD COUNT 3.5 K/mm3 (4.0-10.0)
[2020-12-15 17:54] LABS: CHLORIDE 109 mmol/L (98-107); SODIUM 143 mmol/L (136-145)
[2020-12-15 17:56] LABS: ALBUMIN 3.4 g/dl (3.4-5.0); ANION GAP 5 MMOL/L (8-16); BLOOD UREA NITROGEN 18.2 mg/dL (7-18); CALCIUM 9.6 mg/dL (8.5-10.1); CO2 29 mmol/L (21-32); GLUCOSE,RANDOM 84 mg/dL (74-106)
[2020-12-15 17:59] LABS: SGOT/AST 32 U/L (15-37); SGPT/ALT 39 U/L (13-61)
[2020-12-15 18:00] LABS: CREATININE 1.1 mg/dL (0.55-1.3)
[2020-12-15 18:01] LABS: BILIRUBIN,TOTAL 0.3 mg/dL (0.2-1); TOT PROT 6.6 g/dl (6.4-8.2)
[2020-12-15 18:02] LABS: ALK PHOS 94 U/L (45-117)
[2020-12-15 20:12] LABS: ANISOCYTOSIS 2+; MACROCYTOSIS 1+
[2020-12-15 20:13] LABS: PH,URINE 7.5 (5.0-8.0); URINE APPEARANCE CLEAR; URINE BILIRUBIN NEGATIVE (NEGATIVE); URINE COLOR YELLOW; URINE GLUCOSE (UA) NEGATIVE (NEGATIVE); URINE KETONE NEGATIVE (NEGATIVE); URINE LEUK ESTERASE NEGATIVE (NEGATIVE); URINE NITRITE NEGATIVE (NEGATIVE); URINE PROTEIN NEGATIVE (NEGATIVE); URINE UROBILINOGEN 0.2 mg/dL (0.2-1.0)
[2020-12-16 09:42] VITALS: BP 143/55; PULSE 61; TEMP 97.3
== END 2020-12-16 10:02 ==
LOC: JER 15:19
DX: M25.511 Pain in right shoulder (principal); F03.90 Unspecified dementia, unspecified severity, without behavioral disturbance, psychotic disturbance, mood disturbance, and anxiety; W19.XXXA Unspecified fall, initial encounter
CPT/HCPCS: 36415; 70450-TC; 71045-TC-FY; 72125-TC; 80053; 81003; 84484; 85025; 87086; 93005; 93010; 99285-25

== ENCOUNTER 2021-05-20 11:59 | Inpatient (IN) | payer OTHER ==
[2021-05-20] MEDS ORDERED: VANCOMYCIN 1 GM in D5W (PRE-DOCKED) 1,000 MG/250 ML IVPB ONE (13:19)
[2021-05-20] MEDS ORDERED: PIPERACILLIN/TAZOB 4.5 GM 4.5 GM in DEXTROSE 5%-WATER 100 ML IVPB ONE (13:19)
[2021-05-20] MEDS ORDERED: VANCOMYCIN 1 GRAM (PRE-DOCKED) 1,000 MG/250 ML BAG IVPB ONE (14:14)
[2021-05-20] MEDS ORDERED: PIPERACILLIN/TAZOB 4.5 GM 4.5 GM/100 ML BAG IVPB ONE (14:14)
[2021-05-20] MEDS ORDERED: ACETAMINOPHEN 325 MG TABLET (FP) PO PRN (16:13)
[2021-05-20] MEDS ORDERED: DEXAMETHASONE 0.5 MG TABLET PO SCH (16:15)
[2021-05-20 16:55] LABS: BASO % 0.3 % (0-2.0); EOS % 3.8 % (0-4.5); HEMATOCRIT 38.1 % (32.4-45.2); HEMOGLOBIN 12.5 GM/dL (10.7-15.3); MCH 29.5 pg (25.7-33.7); MCHC 32.7 g/dl (32.0-36.0); MEAN CELL VOLUME 90.1 fl (80-96); MEAN PLT VOLUME 8.1 fl (7.5-11.1); MONO % 10.1 % (3.8-10.2); NEUT % 71.8 % (42.8-82.8); PLATELET COUNT 233 10^3/uL (134-434); RBC 4.23 M/mm3 (3.60-5.2); RDW 17.9 % (11.6-15.6); WHITE BLOOD COUNT 5.1 K/mm3 (4.0-10.0)
[2021-05-20 16:58] LABS: PROTHROMBIN TIME (PATIENT) 11.5 SEC (9.7-13.0)
[2021-05-20 17:01] LABS: ACTIVATED PTT 32.5 SECONDS (25.2-36.5)
[2021-05-20 17:15] LABS: CALCIUM 8.8 mg/dL (8.5-10.1)
[2021-05-20 17:16] LABS: ALBUMIN 2.8 g/dl (3.4-5.0); BLOOD UREA NITROGEN 28.3 mg/dL (7-18)
[2021-05-20 17:19] LABS: CREATININE 1.3 mg/dL (0.55-1.3)
[2021-05-20 17:21] LABS: BILIRUBIN,TOTAL 0.3 mg/dL (0.2-1); TOT PROT 6.2 g/dl (6.4-8.2)
[2021-05-20] MEDS: INSULIN SLIDING SCALE (NOVOLOG) 1 VIAL SQ SCH ×2 (18:09→22:42)
[2021-05-20] MEDS: MIDODRINE HCL 2.5 MG TABLET PO SCH (18:27)
[2021-05-20] MEDS: GABAPENTIN 400 MG CAPSULE PO SCH (22:38)
[2021-05-20] MEDS: MEMANTINE HCL 5 MG TABLET (UD) PO SCH (22:38)
[2021-05-20] MEDS: ATORVASTATIN CA 40 MG TABLET (FP) PO SCH (22:38)
[2021-05-20 22:57] VITALS: BMI 21.4
[2021-05-21] MEDS: LEVOTHYROXINE NA 75 MCG TABLET (FP) PO SCH (07:07)
[2021-05-21] MEDS: GABAPENTIN 400 MG CAPSULE PO SCH ×3 (07:08→22:44)
[2021-05-21] MEDS: INSULIN SLIDING SCALE (NOVOLOG) 1 VIAL SQ SCH ×4 (07:16→22:48)
[2021-05-21 08:27] LABS: HEMATOCRIT 37.8 % (32.4-45.2); HEMOGLOBIN 12.2 GM/dL (10.7-15.3); MCH 29.2 pg (25.7-33.7); MCHC 32.3 g/dl (32.0-36.0); MEAN CELL VOLUME 90.5 fl (80-96); MEAN PLT VOLUME 7.8 fl (7.5-11.1); PLATELET COUNT 229 10^3/uL (134-434); RBC 4.18 M/mm3 (3.60-5.2); RDW 17.6 % (11.6-15.6); WHITE BLOOD COUNT 4.3 K/mm3 (4.0-10.0)
[2021-05-21 08:37] LABS: BLOOD UREA NITROGEN 22.4 mg/dL (7-18); CALCIUM 8.8 mg/dL (8.5-10.1)
[2021-05-21 08:38] LABS: ALBUMIN 2.6 g/dl (3.4-5.0); CHOLESTEROL 225 mg/dL (50-200); MAGNESIUM 2.6 mg/dL (1.8-2.4); TRIGLYCERIDES 71 mg/dL (0-150)
[2021-05-21 08:39] LABS: LDL CHOLESTEROL (ONLY SJRH) 127 mg/dL (5-100)
[2021-05-21 08:40] LABS: CREATININE 1.1 mg/dL (0.55-1.3)
[2021-05-21 08:41] LABS: HDL CHOLESTEROL 73 mg/dL (40-60)
[2021-05-21 08:42] LABS: BILIRUBIN,TOTAL 0.4 mg/dL (0.2-1); TOT PROT 5.7 g/dl (6.4-8.2)
[2021-05-21] MEDS: MIDODRINE HCL 2.5 MG TABLET PO SCH ×3 (10:22→18:22)
[2021-05-21] MEDS: MEMANTINE HCL 5 MG TABLET (UD) PO SCH ×2 (10:22→22:45)
[2021-05-21] MEDS: FUROSEMIDE 20 MG TABLET (FP) PO SCH (10:22)
[2021-05-21] MEDS: metoPROLOL SUCCINATE 25 MG TAB.SR.24H (FP) PO SCH (10:22)
[2021-05-21] MEDS: PANTOPRAZOLE 40 MG TABLET PO SCH (10:22)
[2021-05-21] MEDS: COLLAGENASE CLOSTRIDIUM HIST. 30 GRAMS TUBE TP SCH (10:23)
[2021-05-21] MEDS ORDERED: SODIUM CHLORIDE 250 ML IV STA (16:37)
[2021-05-21] MEDS: AMINO ACIDS/PROTEIN HYDROLYS 30 ML LIQUID.PKT PO SCH (18:22)
[2021-05-21] MEDS: ATORVASTATIN CA 40 MG TABLET (FP) PO SCH (22:44)
[2021-05-21] MEDS: SODIUM CHLORIDE 1,000 ML IV SCH (22:45)
[2021-05-22] MEDS: INSULIN SLIDING SCALE (NOVOLOG) 1 VIAL SQ SCH ×4 (06:06→22:12)
[2021-05-22] MEDS: GABAPENTIN 400 MG CAPSULE PO SCH ×3 (06:07→22:07)
[2021-05-22] MEDS: LEVOTHYROXINE NA 75 MCG TABLET (FP) PO SCH (06:07)
[2021-05-22] MEDS: SODIUM CHLORIDE 1,000 ML IV SCH (06:48)
[2021-05-22] MEDS ORDERED: AMINO ACIDS/PROTEIN HYDROLYS 30 ML LIQUID.PKT PO SCH (08:00)
[2021-05-22 09:39] LABS: BASO % 0.6 % (0-2.0); EOS % 3.9 % (0-4.5); HEMOGLOBIN 11.1 GM/dL (10.7-15.3); LYMPH % 24.3 % (8-40); MCH 29.4 pg (25.7-33.7); MCHC 32.7 g/dl (32.0-36.0); MEAN PLT VOLUME 7.7 fl (7.5-11.1); MONO % 15.1 % (3.8-10.2); NEUT % 56.1 % (42.8-82.8); PLATELET COUNT 230 10^3/uL (134-434); RBC 3.77 M/mm3 (3.60-5.2); RDW 17.4 % (11.6-15.6); WHITE BLOOD COUNT 3.8 K/mm3 (4.0-10.0)
[2021-05-22] MEDS: AMINO ACIDS/PROTEIN HYDROLYS 30 ML LIQUID.PKT PO SCH ×2 (09:44→16:46)
[2021-05-22] MEDS: FUROSEMIDE 20 MG TABLET (FP) PO SCH (09:44)
[2021-05-22] MEDS: ASCORBIC ACID 500 MG TABLET (FP) PO SCH (09:44)
[2021-05-22] MEDS: metoPROLOL SUCCINATE 25 MG TAB.SR.24H (FP) PO SCH ×2 (09:44→09:51)
[2021-05-22] MEDS: COLLAGENASE CLOSTRIDIUM HIST. 30 GRAMS TUBE TP SCH (09:44)
[2021-05-22] MEDS: MEMANTINE HCL 5 MG TABLET (UD) PO SCH ×2 (09:44→22:07)
[2021-05-22] MEDS: PANTOPRAZOLE 40 MG TABLET PO SCH (09:44)
[2021-05-22 09:57] LABS: CHLORIDE 112 mmol/L (98-107); SODIUM 145 mmol/L (136-145)
[2021-05-22] MEDS ORDERED: ASCORBIC ACID 500 MG TABLET (FP) PO SCH (10:00)
[2021-05-22 10:16] LABS: CALCIUM 8.4 mg/dL (8.5-10.1)
[2021-05-22 10:17] LABS: ALBUMIN 2.2 g/dl (3.4-5.0); BLOOD UREA NITROGEN 18.6 mg/dL (7-18); GLUCOSE,RANDOM 74 mg/dL (74-106)
[2021-05-22 10:20] LABS: CREATININE 0.8 mg/dL (0.55-1.3); SGOT/AST 20 U/L (15-37); SGPT/ALT 12 U/L (13-61)
[2021-05-22 10:21] LABS: BILIRUBIN,TOTAL 0.3 mg/dL (0.2-1); TOT PROT 5.1 g/dl (6.4-8.2)
[2021-05-22 10:22] LABS: ALK PHOS 59 U/L (45-117)
[2021-05-22 10:23] LABS: ANION GAP 6 MMOL/L (8-16); CO2 27 mmol/L (21-32)
[2021-05-22] MEDS: MIDODRINE HCL 2.5 MG TABLET PO SCH ×3 (11:41→18:14)
[2021-05-22] MEDS: traMADol HCL 50 MG TABLET PO PRN ×2 (11:59→22:06)
[2021-05-22] MEDS: ATORVASTATIN CA 40 MG TABLET (FP) PO SCH (22:07)
[2021-05-23] MEDS: GABAPENTIN 400 MG CAPSULE PO SCH ×3 (06:08→22:40)
[2021-05-23] MEDS: LEVOTHYROXINE NA 75 MCG TABLET (FP) PO SCH (06:08)
[2021-05-23] MEDS: INSULIN SLIDING SCALE (NOVOLOG) 1 VIAL SQ SCH ×4 (06:08→23:00)
[2021-05-23] MEDS: PANTOPRAZOLE 40 MG TABLET PO SCH (10:01)
[2021-05-23] MEDS: MEMANTINE HCL 5 MG TABLET (UD) PO SCH ×2 (10:01→22:40)
[2021-05-23] MEDS: AMINO ACIDS/PROTEIN HYDROLYS 30 ML LIQUID.PKT PO SCH ×2 (10:01→16:57)
[2021-05-23] MEDS: ASCORBIC ACID 500 MG TABLET (FP) PO SCH (10:01)
[2021-05-23] MEDS: FUROSEMIDE 20 MG TABLET (FP) PO SCH (10:07)
[2021-05-23] MEDS: metoPROLOL SUCCINATE 25 MG TAB.SR.24H (FP) PO SCH (10:08)
[2021-05-23] MEDS: MIDODRINE HCL 2.5 MG TABLET PO SCH ×3 (10:09→17:03)
[2021-05-23] MEDS ORDERED: INSULIN (NOVOLOG) ASPART 100 UNITS/ML 10ML VIAL ONE (11:33)
[2021-05-23] MEDS: COLLAGENASE CLOSTRIDIUM HIST. 30 GRAMS TUBE TP SCH (13:22)
[2021-05-23] MEDS: ATORVASTATIN CA 40 MG TABLET (FP) PO SCH (22:40)
[2021-05-24] MEDS: GABAPENTIN 400 MG CAPSULE PO SCH ×3 (06:49→22:45)
[2021-05-24] MEDS: LEVOTHYROXINE NA 75 MCG TABLET (FP) PO SCH (06:49)
[2021-05-24] MEDS: INSULIN SLIDING SCALE (NOVOLOG) 1 VIAL SQ SCH ×4 (06:58→22:44)
[2021-05-24] MEDS: ASCORBIC ACID 500 MG TABLET (FP) PO SCH (10:30)
[2021-05-24] MEDS: FUROSEMIDE 20 MG TABLET (FP) PO SCH (10:30)
[2021-05-24] MEDS: PANTOPRAZOLE 40 MG TABLET PO SCH (10:30)
[2021-05-24] MEDS: metoPROLOL SUCCINATE 25 MG TAB.SR.24H (FP) PO SCH (10:30)
[2021-05-24] MEDS: AMINO ACIDS/PROTEIN HYDROLYS 30 ML LIQUID.PKT PO SCH ×2 (10:30→17:09)
[2021-05-24] MEDS: MEMANTINE HCL 5 MG TABLET (UD) PO SCH ×2 (10:30→22:45)
[2021-05-24] MEDS: MIDODRINE HCL 2.5 MG TABLET PO SCH ×4 (10:31→17:09)
[2021-05-24] MEDS: COLLAGENASE CLOSTRIDIUM HIST. 30 GRAMS TUBE TP SCH (12:20)
[2021-05-24] MEDS ORDERED: CEFTRIAXONE 1 GM in DEXTROSE 5%-WATER - 50 ML IVPB SCH (14:00)
[2021-05-24] MEDS ORDERED: PIPERACILLIN/TAZOB 3.375 GM 3.375 GM in DEXTROSE 5%-WATER - 50 ML IVPB SCH (14:00)
[2021-05-24] MEDS ORDERED: VANCOMYCIN 1,000 MG in DEXTROSE 5%-WATER - 250 ML IVPB SCH (14:00)
[2021-05-24] MEDS ORDERED: PIPERACILLIN/TAZOBACTAM 3.375 GM VIAL IVPB ONE (15:12)
[2021-05-24] MEDS ORDERED: DEXTROSE 5%-WATER - 50 ML IVPB ONE (15:13)
[2021-05-24] MEDS: PIPERACILLIN/TAZOB 3.375 GM 3.375 GM in DEXTROSE 5%-WATER - 50 ML IVPB SCH ×2 (15:14→18:15)
[2021-05-24] MEDS ORDERED: INSULIN (NOVOLOG) ASPART 100 UNITS/ML 10ML VIAL ONE (22:11)
[2021-05-24] MEDS: ATORVASTATIN CA 40 MG TABLET (FP) PO SCH (22:45)
[2021-05-25] MEDS ORDERED: PIPERACILLIN/TAZOBACTAM 3.375 GM VIAL IVPB ONE ×2 (02:38→08:55)
[2021-05-25] MEDS ORDERED: DEXTROSE 5%-WATER - 50 ML IVPB ONE ×2 (02:39→08:55)
[2021-05-25] MEDS: PIPERACILLIN/TAZOB 3.375 GM 3.375 GM in DEXTROSE 5%-WATER - 50 ML IVPB SCH ×2 (02:59→10:26)
[2021-05-25] MEDS: GABAPENTIN 400 MG CAPSULE PO SCH ×2 (05:28→14:08)
[2021-05-25] MEDS: LEVOTHYROXINE NA 75 MCG TABLET (FP) PO SCH (06:03)
[2021-05-25] MEDS: INSULIN SLIDING SCALE (NOVOLOG) 1 VIAL SQ SCH ×3 (06:03→17:01)
[2021-05-25] MEDS: MIDODRINE HCL 2.5 MG TABLET PO SCH ×2 (10:26→14:09)
[2021-05-25] MEDS: AMINO ACIDS/PROTEIN HYDROLYS 30 ML LIQUID.PKT PO SCH (10:27)
[2021-05-25] MEDS: MEMANTINE HCL 5 MG TABLET (UD) PO SCH (10:27)
[2021-05-25] MEDS: metoPROLOL SUCCINATE 25 MG TAB.SR.24H (FP) PO SCH (10:32)
[2021-05-25] MEDS: COLLAGENASE CLOSTRIDIUM HIST. 30 GRAMS TUBE TP SCH (10:32)
[2021-05-25] MEDS: PANTOPRAZOLE 40 MG TABLET PO SCH (10:33)
[2021-05-25] MEDS: ASCORBIC ACID 500 MG TABLET (FP) PO SCH (10:33)
[2021-05-25] MEDS: FUROSEMIDE 20 MG TABLET (FP) PO SCH (10:33)
[2021-05-25 19:02] VITALS: BP 128/64; PULSE 54; TEMP 97.7
[2021-05-26 14:09] LABS: FREE KAPPA,SERUM 213.6 mg/L (3.3-19.4)
== END 2021-05-25 17:21 | DRG 478 ==
LOC: JER 11:59 → JERBED 13:25 → J7W 21:05
PROVIDERS: ADMIT Family Medicine; ATTEND Family Medicine
PROC: 0QBM3ZX Excision of Left Tarsal, Percutaneous Approach, Diagnostic (ICD-10-PCS; principal; 2021-05-22)
PROC: 05HB33Z Insertion of Infusion Device into Right Basilic Vein, Percutaneous Approach (ICD-10-PCS; 2021-05-25)
PROC: B51MZZA Fluoroscopy of Right Upper Extremity Veins, Guidance (ICD-10-PCS; 2021-05-25)
DX: M86.8X7 Other osteomyelitis, ankle and foot (principal); C90.00 Multiple myeloma not having achieved remission; N17.9 Acute kidney failure, unspecified; R64 Cachexia; I10 Essential (primary) hypertension; F03.90 Unspecified dementia, unspecified severity, without behavioral disturbance, psychotic disturbance, mood disturbance, and anxiety; E03.9 Hypothyroidism, unspecified; E11.9 Type 2 diabetes mellitus without complications; K21.9 Gastro-esophageal reflux disease without esophagitis; E78.5 Hyperlipidemia, unspecified; I48.91 Unspecified atrial fibrillation; Z68.21 Body mass index [BMI] 21.0-21.9, adult
CPT/HCPCS: 11042; 11045; 36415; 36569; 73718-TC-LT; 75635-TC; 80053; 80061; 82607; 82784; 82962; 83036; 83735; 83883; 84155; 84165; 85025; 85027; 85610; 85730; 86334; 86850; 86900; 86901; 87040; 87070; 87075; 87077; 87186; 87205; 87804; 93005; 93010; 97116-GP; 97161-GP; 99285-25; C9803; G0463-25; Q9967; U0003; U0005

== ENCOUNTER 2021-12-28 12:04 | Inpatient (IN) | payer OTHER, BC ==
[2021-12-28] MEDS ORDERED: ACETAMINOPHEN INJECTION 100 ML IVPB ONE (12:27)
[2021-12-28] MEDS ORDERED: SODIUM CHLORIDE 1,000 ML IV STA ×2 (12:36→14:06)
[2021-12-28] MEDS ORDERED: ACETAMINOPHEN 1000 MG/100 ML BAG IVPB ONE (12:36)
[2021-12-28] MEDS ORDERED: PIPERACILLIN/TAZOB 4.5 GM 4.5 GM in DEXTROSE 5%-WATER 100 ML IVPB ONE (12:36)
[2021-12-28] MEDS ORDERED: VANCOMYCIN 1 GM in D5W (PRE-DOCKED) 1,000 MG/250 ML IVPB ONE (12:36)
[2021-12-28 12:52] VITALS: BMI 21.6
[2021-12-28 12:52] LABS: BASO % 0.6 % (0-2.0); EOS % 0.4 % (0-4.5); HEMATOCRIT 42.1 % (32.4-45.2); HEMOGLOBIN 13.5 GM/dL (10.7-15.3); LYMPH % 8.7 % (8-40); MCH 30.4 pg (25.7-33.7); MCHC 32.1 g/dl (32.0-36.0); MEAN CELL VOLUME 94.8 fl (80-96); MEAN PLT VOLUME 10.2 fl (7.5-11.1); MONO % 6.3 % (3.8-10.2); PLATELET COUNT 468 10^3/uL (134-434); RBC 4.44 M/mm3 (3.60-5.2); WHITE BLOOD COUNT 11.9 K/mm3 (4.0-10.0)
[2021-12-28 12:54] LABS: EPI CELLS 2 /uL (0-25.1); HYALINE CASTS 6 /uL (0-3.1); PH,URINE 5.5 (5.0-8.0); URINE APPEARANCE CLOUDY; URINE BACTERIA >9,000 /uL (0-1359); URINE BILIRUBIN NEGATIVE (NEGATIVE); URINE COLOR YELLOW; URINE GLUCOSE (UA) NEGATIVE (NEGATIVE); URINE KETONE NEGATIVE (NEGATIVE); URINE LEUK ESTERASE 2+ (NEGATIVE); URINE NITRITE NEGATIVE (NEGATIVE); URINE PROTEIN 1+ (NEGATIVE); URINE UROBILINOGEN 0.2 mg/dL (0.2-1.0); URINE WBC 243 /uL (0-25.8)
[2021-12-28 12:59] LABS: VENOUS BASE EXCESS 0.7 mmol/L (-2-2); VENOUS O2 SATURATION 38.9 % (70-80); VENOUS PCO2 53.9 mmHg (38-52); VENOUS PH 7.329 (7.310-7.410)
[2021-12-28 13:07] LABS: INR 1.35 (0.83-1.09); PROTHROMBIN TIME (PATIENT) 15.6 SEC (9.7-13.0)
[2021-12-28 13:09] LABS: ACTIVATED PTT 48.9 SECONDS (25.2-36.5)
[2021-12-28 13:10] LABS: CHLORIDE 126 mmol/L (98-107)
[2021-12-28 13:11] LABS: CALCIUM 9.6 mg/dL (8.5-10.1)
[2021-12-28 13:12] LABS: BLOOD UREA NITROGEN 74.9 mg/dL (7-18); CO2 28 mmol/L (21-32); GLUCOSE,RANDOM 142 mg/dL (74-106)
[2021-12-28 13:15] LABS: CREATININE 2.2 mg/dL (0.55-1.3); SGOT/AST 275 U/L (15-37)
[2021-12-28 13:17] LABS: BILIRUBIN,TOTAL 0.5 mg/dL (0.2-1); TOT PROT 7.2 g/dl (6.4-8.2)
[2021-12-28 13:18] LABS: ALK PHOS 123 U/L (45-117)
[2021-12-28] MEDS ORDERED: PIPERACILLIN/TAZOB 4.5 GM 4.5 GM/100 ML BAG IVPB ONE (13:18)
[2021-12-28] MEDS ORDERED: VANCOMYCIN/WATER FOR INJ (PEG) 1,000 MG/200 ML BAG IVPB ONE (13:18)
[2021-12-28 13:21] LABS: LACTIC ACID 2.6 mmol/L (0.4-2.0)
[2021-12-28 13:36] LABS: ALBUMIN 2.1 g/dl (3.4-5.0); ANION GAP 11 MMOL/L (8-16); SGPT/ALT 208 U/L (13-61); SODIUM 164 mmol/L (136-145)
[2021-12-28 15:05] LABS: URINE RBC 25.3 /uL (0-23.9)
[2021-12-28] MEDS ORDERED: ACETAMINOPHEN 1000 MG/100 ML BAG IVPB PRN (18:41)
[2021-12-28] MEDS ORDERED: PIPERACILLIN/TAZOB 2.25 GM 2.25 GM/50 ML BAG IVPB ONE (20:51)
[2021-12-28] MEDS ORDERED: PIPERACILLIN/TAZOB 4.5 GM 2.25 GM in DEXTROSE 5%-WATER 100 ML IVPB ONE (21:00)
[2021-12-28 21:45] LABS: CHLORIDE 137 mmol/L (98-107)
[2021-12-28 21:47] LABS: CALCIUM 8.4 mg/dL (8.5-10.1)
[2021-12-28 21:48] LABS: BLOOD UREA NITROGEN 71.2 mg/dL (7-18); CO2 21 mmol/L (21-32); GLUCOSE,RANDOM 166 mg/dL (74-106)
[2021-12-28 21:51] LABS: CREATININE 1.7 mg/dL (0.55-1.3)
[2021-12-28 21:55] LABS: ANION GAP 8 MMOL/L (8-16); SODIUM 166 mmol/L (136-145)
[2021-12-28] MEDS ORDERED: DEXTROSE 5%-0.45% SALINE 1,000 ML IV SCH (23:45)
[2021-12-29] MEDS ORDERED: PIPERACILLIN/TAZOB 2.25 GM 2.25 GM/50 ML BAG IVPB ONE ×2 (01:43→08:02)
[2021-12-29] MEDS: PIPERACILLIN/TAZOB 2.25 GM 2.25 GM in DEXTROSE 5%-WATER - 50 ML IVPB SCH ×4 (03:59→18:02)
[2021-12-29 06:40] LABS: BASO % 0.5 % (0-2.0); HEMATOCRIT 41.9 % (32.4-45.2); HEMOGLOBIN 12.9 GM/dL (10.7-15.3); LYMPH % 5.1 % (8-40); MCH 29.9 pg (25.7-33.7); MCHC 30.9 g/dl (32.0-36.0); MEAN PLT VOLUME 9.7 fl (7.5-11.1); MONO % 4.3 % (3.8-10.2); NEUT % 89.1 % (42.8-82.8); PLATELET COUNT 366 10^3/uL (134-434); RBC 4.32 M/mm3 (3.60-5.2); RDW 18.6 % (11.6-15.6); WHITE BLOOD COUNT 10.1 K/mm3 (4.0-10.0)
[2021-12-29 07:16] LABS: LACTIC ACID 2.6 mmol/L (0.4-2.0)
[2021-12-29] MEDS ORDERED: APIXABAN 2.5 MG TABLET ONE (07:38)
[2021-12-29] MEDS ORDERED: valACYclovir HCL 500 MG TABLET (FP) ONE (07:38)
[2021-12-29] MEDS ORDERED: MAGNESIUM OXIDE 400 MG TABLET (FP) ONE (07:39)
[2021-12-29] MEDS ORDERED: LEVOTHYROXINE NA 75 MCG TABLET (FP) ONE (07:39)
[2021-12-29] MEDS ORDERED: PIPERACILLIN/TAZOB 3.375 GM 0 GM/0 ML BAG IVPB ONE (07:39)
[2021-12-29] MEDS ORDERED: metoPROLOL SUCCINATE 25 MG TAB.SR.24H (FP) PO ONE (07:39)
[2021-12-29 07:40] LABS: ALBUMIN 1.9 g/dl (3.4-5.0); ALK PHOS 113 U/L (45-117); ANION GAP 6 MMOL/L (8-16); BILIRUBIN,TOTAL 0.4 mg/dL (0.2-1); BLOOD UREA NITROGEN 66.1 mg/dL (7-18); CALCIUM 8.8 mg/dL (8.5-10.1); CHLORIDE 136 mmol/L (98-107); CO2 24 mmol/L (21-32); CREATININE 1.7 mg/dL (0.55-1.3); GLUCOSE,RANDOM 179 mg/dL (74-106); SGOT/AST 158 U/L (15-37); SGPT/ALT 164 U/L (13-61); SODIUM 166 mmol/L (136-145); TOT PROT 6.5 g/dl (6.4-8.2)
[2021-12-29] MEDS: LEVOTHYROXINE NA 75 MCG TABLET (FP) PO SCH (07:46)
[2021-12-29] MEDS: metoPROLOL SUCCINATE 25 MG TAB.SR.24H (FP) PO SCH (09:17)
[2021-12-29] MEDS: valACYclovir HCL 500 MG TABLET (FP) PO SCH (09:17)
[2021-12-29] MEDS: PANTOPRAZOLE 40 MG TABLET PO SCH (09:17)
[2021-12-29] MEDS: MAGNESIUM OXIDE 400 MG TABLET (FP) PO SCH ×3 (09:17→21:24)
[2021-12-29] MEDS: APIXABAN 2.5 MG TABLET PO SCH ×2 (09:17→21:22)
[2021-12-29] MEDS: MEMANTINE HCL 5 MG TABLET (UD) PO SCH ×2 (09:17→21:22)
[2021-12-29] MEDS ORDERED: VANCOMYCIN/WATER FOR INJ (PEG) 1,000 MG/200 ML BAG IVPB ONE ×2 (14:19→15:13)
[2021-12-29] MEDS: DEXTROSE 5%-WATER - 1,000 ML IV SCH (17:40)
[2021-12-29] MEDS: ATORVASTATIN CA 40 MG TABLET (FP) PO SCH (21:22)
[2021-12-30] MEDS: PIPERACILLIN/TAZOB 2.25 GM 2.25 GM in DEXTROSE 5%-WATER - 50 ML IVPB SCH ×5 (02:01→17:01)
[2021-12-30] MEDS: DEXTROSE 5%-WATER - 1,000 ML IV SCH (04:09)
[2021-12-30] MEDS: LEVOTHYROXINE NA 75 MCG TABLET (FP) PO SCH (06:31)
[2021-12-30] MEDS: metoPROLOL SUCCINATE 25 MG TAB.SR.24H (FP) PO SCH (09:38)
[2021-12-30] MEDS: MEMANTINE HCL 5 MG TABLET (UD) PO SCH ×2 (09:39→21:06)
[2021-12-30] MEDS: APIXABAN 2.5 MG TABLET PO SCH ×2 (09:39→21:06)
[2021-12-30] MEDS: PANTOPRAZOLE 40 MG TABLET PO SCH (09:39)
[2021-12-30] MEDS: valACYclovir HCL 500 MG TABLET (FP) PO SCH (12:29)
[2021-12-30 13:31] LABS: LACTIC ACID 4.4 mmol/L (0.4-2.0)
[2021-12-30] MEDS: BACITRACIN 15 GM TUBE TOPICAL OINTMENT TP SCH (17:01)
[2021-12-30] MEDS: ATORVASTATIN CA 40 MG TABLET (FP) PO SCH (21:06)
[2021-12-31] MEDS: PIPERACILLIN/TAZOB 2.25 GM 2.25 GM in DEXTROSE 5%-WATER - 50 ML IVPB SCH ×2 (02:00→09:23)
[2021-12-31] MEDS: DEXTROSE 5%-WATER - 1,000 ML IV SCH ×2 (02:59→18:17)
[2021-12-31] MEDS: LEVOTHYROXINE NA 75 MCG TABLET (FP) PO SCH (06:15)
[2021-12-31] MEDS: AMINO ACIDS/PROTEIN HYDROLYS 30 ML LIQUID.PKT PO SCH ×2 (08:40→18:49)
[2021-12-31] MEDS: APIXABAN 2.5 MG TABLET PO SCH ×2 (09:23→21:58)
[2021-12-31] MEDS: MEMANTINE HCL 5 MG TABLET (UD) PO SCH ×2 (09:23→21:58)
[2021-12-31] MEDS: metoPROLOL SUCCINATE 25 MG TAB.SR.24H (FP) PO SCH (09:23)
[2021-12-31] MEDS: PANTOPRAZOLE 40 MG TABLET PO SCH (09:23)
[2021-12-31] MEDS: valACYclovir HCL 500 MG TABLET (FP) PO SCH (09:24)
[2021-12-31] MEDS: ASCORBIC ACID 250 MG TABLET (FP) PO SCH (09:28)
[2021-12-31] MEDS: MULTIVIT-MINERALS ORAL LIQUID PO SCH (09:28)
[2021-12-31] MEDS: BACITRACIN 15 GM TUBE TOPICAL OINTMENT TP SCH (09:40)
[2021-12-31 10:11] LABS: BASO % 0.4 % (0-2.0); EOS % 1.1 % (0-4.5); HEMATOCRIT 33.5 % (32.4-45.2); LYMPH % 6.4 % (8-40); MCH 30.8 pg (25.7-33.7); MCHC 32.7 g/dl (32.0-36.0); MEAN CELL VOLUME 94.4 fl (80-96); MEAN PLT VOLUME 9.8 fl (7.5-11.1); MONO % 2.3 % (3.8-10.2); NEUT % 89.8 % (42.8-82.8); PLATELET COUNT 263 10^3/uL (134-434); RBC 3.55 M/mm3 (3.60-5.2); RDW 18.1 % (11.6-15.6); WHITE BLOOD COUNT 8.5 K/mm3 (4.0-10.0)
[2021-12-31 10:37] LABS: ALBUMIN 1.6 g/dl (3.4-5.0)
[2021-12-31 10:40] LABS: CREATININE 1.1 mg/dL (0.55-1.3)
[2021-12-31 10:42] LABS: BILIRUBIN,TOTAL 0.4 mg/dL (0.2-1); TOT PROT 5.2 g/dl (6.4-8.2)
[2021-12-31 10:55] LABS: BLOOD UREA NITROGEN 31.6 mg/dL (7-18)
[2021-12-31 11:24] LABS: LACTIC ACID 3.4 mmol/L (0.4-2.0)
[2021-12-31] MEDS ORDERED: POTASSIUM CHLORIDE ORAL LIQUID 20 MEQ/15 ML PO ONE (15:36)
[2021-12-31] MEDS: ERTAPENEM SODIUM 0.5 GM in SODIUM CHLORIDE 50 ML IVPB SCH (18:17)
[2021-12-31] MEDS: KCL 10 MEQ IVPB 10 MEQ/100 ML INFUS.BAG IVPB SCH ×5 (18:46→23:50)
[2022-01-01] MEDS: LEVOTHYROXINE NA 75 MCG TABLET (FP) PO SCH (06:13)
[2022-01-01] MEDS: AMINO ACIDS/PROTEIN HYDROLYS 30 ML LIQUID.PKT PO SCH ×2 (08:00→17:33)
[2022-01-01 09:55] LABS: ALBUMIN 1.4 g/dl (3.4-5.0); BLOOD UREA NITROGEN 25.6 mg/dL (7-18); MAGNESIUM 1.9 mg/dL (1.8-2.4)
[2022-01-01 09:58] LABS: CREATININE 0.8 mg/dL (0.55-1.3)
[2022-01-01 09:59] LABS: BILIRUBIN,TOTAL 0.5 mg/dL (0.2-1); TOT PROT 5.1 g/dl (6.4-8.2)
[2022-01-01] MEDS: APIXABAN 2.5 MG TABLET PO SCH ×2 (10:54→21:30)
[2022-01-01] MEDS: BACITRACIN 15 GM TUBE TOPICAL OINTMENT TP SCH (10:54)
[2022-01-01] MEDS: MULTIVIT-MINERALS ORAL LIQUID PO SCH (10:54)
[2022-01-01] MEDS: metoPROLOL SUCCINATE 25 MG TAB.SR.24H (FP) PO SCH (10:55)
[2022-01-01] MEDS: PANTOPRAZOLE 40 MG TABLET PO SCH (10:55)
[2022-01-01] MEDS: MEMANTINE HCL 5 MG TABLET (UD) PO SCH ×2 (10:55→21:30)
[2022-01-01] MEDS: ERTAPENEM SODIUM 0.5 GM in SODIUM CHLORIDE 50 ML IVPB SCH (10:55)
[2022-01-01] MEDS: valACYclovir HCL 500 MG TABLET (FP) PO SCH (10:55)
[2022-01-01] MEDS: ASCORBIC ACID 250 MG TABLET (FP) PO SCH (10:56)
[2022-01-01] MEDS: DEXTROSE 5%-WATER - 1,000 ML IV SCH (17:33)
[2022-01-01] MEDS ORDERED: ACETAMINOPHEN 1000 MG/100 ML BAG IVPB ONE (20:24)
[2022-01-02] MEDS: DEXTROSE 5%-WATER - 1,000 ML IV SCH ×2 (02:05→18:51)
[2022-01-02] MEDS: LEVOTHYROXINE NA 75 MCG TABLET (FP) PO SCH (06:08)
[2022-01-02] MEDS: AMINO ACIDS/PROTEIN HYDROLYS 30 ML LIQUID.PKT PO SCH ×2 (09:36→17:41)
[2022-01-02] MEDS: MULTIVIT-MINERALS ORAL LIQUID PO SCH (09:36)
[2022-01-02] MEDS: metoPROLOL SUCCINATE 25 MG TAB.SR.24H (FP) PO SCH (09:37)
[2022-01-02] MEDS: valACYclovir HCL 500 MG TABLET (FP) PO SCH (09:37)
[2022-01-02] MEDS: ASCORBIC ACID 250 MG TABLET (FP) PO SCH (09:37)
[2022-01-02] MEDS: APIXABAN 2.5 MG TABLET PO SCH ×2 (09:38→21:54)
[2022-01-02] MEDS: MEMANTINE HCL 5 MG TABLET (UD) PO SCH ×2 (09:38→21:54)
[2022-01-02] MEDS: BACITRACIN 15 GM TUBE TOPICAL OINTMENT TP SCH (09:38)
[2022-01-02] MEDS: PANTOPRAZOLE 40 MG TABLET PO SCH (09:38)
[2022-01-02] MEDS: ERTAPENEM SODIUM 0.5 GM in SODIUM CHLORIDE 50 ML IVPB SCH (09:39)
[2022-01-02] MEDS ORDERED: ACETAMINOPHEN 1000 MG/100 ML BAG IVPB ONE (21:12)
[2022-01-03] MEDS: LEVOTHYROXINE NA 75 MCG TABLET (FP) PO SCH (06:20)
[2022-01-03 08:54] LABS: CHLORIDE 111 mmol/L (98-107); SODIUM 144 mmol/L (136-145)
[2022-01-03 08:56] LABS: CALCIUM 8.1 mg/dL (8.5-10.1)
[2022-01-03 08:57] LABS: ALBUMIN 1.3 g/dl (3.4-5.0); BLOOD UREA NITROGEN 15.3 mg/dL (7-18); CO2 24 mmol/L (21-32); GLUCOSE,RANDOM 100 mg/dL (74-106); MAGNESIUM 1.5 mg/dL (1.8-2.4)
[2022-01-03 09:00] LABS: CREATININE 0.6 mg/dL (0.55-1.3); PHOSPHOROUS 3.4 mg/dL (2.5-4.9); SGOT/AST 51 U/L (15-37); SGPT/ALT 56 U/L (13-61)
[2022-01-03 09:01] LABS: TOT PROT 4.4 g/dl (6.4-8.2)
[2022-01-03 09:02] LABS: BILIRUBIN,TOTAL 0.3 mg/dL (0.2-1)
[2022-01-03 09:03] LABS: ALK PHOS 81 U/L (45-117)
[2022-01-03 09:05] LABS: ANION GAP 9 MMOL/L (8-16)
[2022-01-03] MEDS: AMINO ACIDS/PROTEIN HYDROLYS 30 ML LIQUID.PKT PO SCH ×2 (10:07→17:24)
[2022-01-03] MEDS: BACITRACIN 15 GM TUBE TOPICAL OINTMENT TP SCH (10:07)
[2022-01-03] MEDS: MULTIVIT-MINERALS ORAL LIQUID PO SCH (10:07)
[2022-01-03] MEDS: APIXABAN 2.5 MG TABLET PO SCH ×2 (10:08→21:38)
[2022-01-03] MEDS: ASCORBIC ACID 250 MG TABLET (FP) PO SCH (10:08)
[2022-01-03] MEDS: PANTOPRAZOLE 40 MG TABLET PO SCH (10:08)
[2022-01-03] MEDS: metoPROLOL SUCCINATE 25 MG TAB.SR.24H (FP) PO SCH (10:08)
[2022-01-03] MEDS: MEMANTINE HCL 5 MG TABLET (UD) PO SCH ×2 (10:08→21:38)
[2022-01-03] MEDS: valACYclovir HCL 500 MG TABLET (FP) PO SCH (10:08)
[2022-01-03] MEDS: ERTAPENEM SODIUM 0.5 GM in SODIUM CHLORIDE 50 ML IVPB SCH (10:27)
[2022-01-03] MEDS ORDERED: MAGNESIUM SULF 50% (8.12 MEQ/2 ML-1 GM VIAL) IVPB ONE (11:12)
[2022-01-03] MEDS: KCL 10 MEQ IVPB 10 MEQ/100 ML INFUS.BAG IVPB SCH ×3 (11:34→13:38)
[2022-01-03] MEDS ORDERED: ACETAMINOPHEN 1000 MG/100 ML BAG IVPB PRN (14:54)
[2022-01-03] MEDS: DEXTROSE 5%-WATER - 1,000 ML with POTASSIUM CHLORIDE 40 MEQ IV SCH (15:26)
[2022-01-04] MEDS: LEVOTHYROXINE NA 75 MCG TABLET (FP) PO SCH (06:15)
[2022-01-04 09:34] LABS: BLOOD UREA NITROGEN 13.8 mg/dL (7-18)
[2022-01-04 09:36] LABS: CALCIUM 8.4 mg/dL (8.5-10.1); MAGNESIUM 2.2 mg/dL (1.8-2.4)
[2022-01-04 09:37] LABS: PHOSPHOROUS 2.9 mg/dL (2.5-4.9)
[2022-01-04 09:39] LABS: CREATININE 0.7 mg/dL (0.55-1.3)
[2022-01-04] MEDS: AMINO ACIDS/PROTEIN HYDROLYS 30 ML LIQUID.PKT PO SCH ×2 (11:07→17:38)
[2022-01-04] MEDS: MEMANTINE HCL 5 MG TABLET (UD) PO SCH ×2 (11:07→21:54)
[2022-01-04] MEDS: APIXABAN 2.5 MG TABLET PO SCH ×2 (11:07→21:54)
[2022-01-04] MEDS: PANTOPRAZOLE 40 MG TABLET PO SCH (11:07)
[2022-01-04] MEDS: metoPROLOL SUCCINATE 25 MG TAB.SR.24H (FP) PO SCH (11:07)
[2022-01-04] MEDS: ASCORBIC ACID 250 MG TABLET (FP) PO SCH (11:08)
[2022-01-04] MEDS: BACITRACIN 15 GM TUBE TOPICAL OINTMENT TP SCH (11:08)
[2022-01-04] MEDS: MULTIVIT-MINERALS ORAL LIQUID PO SCH (11:08)
[2022-01-04] MEDS: valACYclovir HCL 500 MG TABLET (FP) PO SCH (11:08)
[2022-01-04] MEDS: ERTAPENEM SODIUM 0.5 GM in SODIUM CHLORIDE 50 ML IVPB SCH (11:10)
[2022-01-04] MEDS ORDERED: POTASSIUM CHLORIDE 40 MEQ in DEXTROSE 5%-WATER - 1,000 ML IV SCH ×2 (13:58→13:59)
[2022-01-04] MEDS: POTASSIUM CHLORIDE 40 MEQ in DEXTROSE 5%-WATER - 1,000 ML IV SCH (14:41)
[2022-01-04] MEDS: DEXTROSE 5%-WATER - 1,000 ML with POTASSIUM CHLORIDE 40 MEQ IV SCH (16:41)
[2022-01-05] MEDS: POTASSIUM CHLORIDE 40 MEQ in DEXTROSE 5%-WATER - 1,000 ML IV SCH ×2 (05:08→14:02)
[2022-01-05] MEDS: LEVOTHYROXINE NA 75 MCG TABLET (FP) PO SCH (06:04)
[2022-01-05 08:01] LABS: CALCIUM 8.2 mg/dL (8.5-10.1)
[2022-01-05 08:02] LABS: ALBUMIN 1.3 g/dl (3.4-5.0)
[2022-01-05 08:05] LABS: CREATININE 0.6 mg/dL (0.55-1.3)
[2022-01-05 08:07] LABS: BILIRUBIN,TOTAL 0.2 mg/dL (0.2-1); TOT PROT 4.5 g/dl (6.4-8.2)
[2022-01-05] MEDS: PANTOPRAZOLE 40 MG TABLET PO SCH (09:12)
[2022-01-05] MEDS: metoPROLOL SUCCINATE 25 MG TAB.SR.24H (FP) PO SCH (09:12)
[2022-01-05] MEDS: AMINO ACIDS/PROTEIN HYDROLYS 30 ML LIQUID.PKT PO SCH ×2 (09:12→17:49)
[2022-01-05] MEDS: MEMANTINE HCL 5 MG TABLET (UD) PO SCH ×2 (09:12→21:55)
[2022-01-05] MEDS: APIXABAN 2.5 MG TABLET PO SCH ×2 (09:12→21:55)
[2022-01-05] MEDS: BACITRACIN 15 GM TUBE TOPICAL OINTMENT TP SCH (09:15)
[2022-01-05 11:33] LABS: BASO % 1.2 % (0-2.0); EOS % 1.8 % (0-4.5); HEMATOCRIT 34.4 % (32.4-45.2); HEMOGLOBIN 11.3 GM/dL (10.7-15.3); LYMPH % 8.1 % (8-40); MCH 30.3 pg (25.7-33.7); MCHC 32.8 g/dl (32.0-36.0); MEAN CELL VOLUME 92.4 fl (80-96); MEAN PLT VOLUME 8.7 fl (7.5-11.1); MONO % 12.5 % (3.8-10.2); NEUT % 76.4 % (42.8-82.8); PLATELET COUNT 296 10^3/uL (134-434); RBC 3.72 M/mm3 (3.60-5.2); RDW 17.7 % (11.6-15.6); WHITE BLOOD COUNT 9.5 K/mm3 (4.0-10.0)
[2022-01-05] MEDS: ASCORBIC ACID 250 MG TABLET (FP) PO SCH (14:00)
[2022-01-05] MEDS: ERTAPENEM SODIUM 0.5 GM in SODIUM CHLORIDE 50 ML IVPB SCH (14:00)
[2022-01-05] MEDS: MULTIVIT-MINERALS ORAL LIQUID PO SCH (14:01)
[2022-01-05] MEDS: valACYclovir HCL 500 MG TABLET (FP) PO SCH (14:01)
[2022-01-05] MEDS: POTASSIUM CHLORIDE 20 MEQ in DEXTROSE 5%-WATER - 1,000 ML IV SCH (15:21)
[2022-01-06] MEDS: POTASSIUM CHLORIDE 20 MEQ in DEXTROSE 5%-WATER - 1,000 ML IV SCH ×3 (02:02→10:37)
[2022-01-06] MEDS: LEVOTHYROXINE NA 75 MCG TABLET (FP) PO SCH (06:28)
[2022-01-06] MEDS: metoPROLOL SUCCINATE 25 MG TAB.SR.24H (FP) PO SCH (10:18)
[2022-01-06] MEDS: APIXABAN 2.5 MG TABLET PO SCH ×2 (10:18→21:23)
[2022-01-06] MEDS: MEMANTINE HCL 5 MG TABLET (UD) PO SCH ×2 (10:19→21:23)
[2022-01-06] MEDS: PANTOPRAZOLE 40 MG TABLET PO SCH (10:19)
[2022-01-06] MEDS ORDERED: POTASSIUM CHLORIDE 20 MEQ in DEXTROSE 5%-WATER - 1,000 ML IV SCH (10:19)
[2022-01-06] MEDS: MULTIVIT-MINERALS ORAL LIQUID PO SCH (10:20)
[2022-01-06] MEDS: ERTAPENEM SODIUM 0.5 GM in SODIUM CHLORIDE 50 ML IVPB SCH ×2 (10:22→10:36)
[2022-01-06] MEDS: BACITRACIN 15 GM TUBE TOPICAL OINTMENT TP SCH (10:22)
[2022-01-06] MEDS: valACYclovir HCL 500 MG TABLET (FP) PO SCH (10:23)
[2022-01-06] MEDS: ASCORBIC ACID 250 MG TABLET (FP) PO SCH (10:23)
[2022-01-06] MEDS: AMINO ACIDS/PROTEIN HYDROLYS 30 ML LIQUID.PKT PO SCH ×2 (10:34→16:55)
[2022-01-06 15:39] LABS: CALCIUM 8.5 mg/dL (8.5-10.1)
[2022-01-06 15:40] LABS: ALBUMIN 1.6 g/dl (3.4-5.0); BLOOD UREA NITROGEN 10.3 mg/dL (7-18)
[2022-01-06 15:43] LABS: CREATININE 0.6 mg/dL (0.55-1.3)
[2022-01-06 15:45] LABS: BILIRUBIN,TOTAL 0.4 mg/dL (0.2-1); TOT PROT 5.2 g/dl (6.4-8.2)
[2022-01-07] MEDS: LEVOTHYROXINE NA 75 MCG TABLET (FP) PO SCH (06:52)
[2022-01-07] MEDS: AMINO ACIDS/PROTEIN HYDROLYS 30 ML LIQUID.PKT PO SCH ×2 (11:20→17:53)
[2022-01-07] MEDS: ZINC SULFATE 220 MG CAPSULE (FP) PO SCH (11:22)
[2022-01-07] MEDS: ASCORBIC ACID 250 MG TABLET (FP) PO SCH (11:22)
[2022-01-07] MEDS: PANTOPRAZOLE 40 MG TABLET PO SCH (11:22)
[2022-01-07] MEDS: metoPROLOL SUCCINATE 25 MG TAB.SR.24H (FP) PO SCH (11:26)
[2022-01-07] MEDS: APIXABAN 2.5 MG TABLET PO SCH ×2 (11:26→22:46)
[2022-01-07] MEDS: MEMANTINE HCL 5 MG TABLET (UD) PO SCH ×2 (11:27→22:46)
[2022-01-07] MEDS: BACITRACIN 15 GM TUBE TOPICAL OINTMENT TP SCH (11:27)
[2022-01-07] MEDS: valACYclovir HCL 500 MG TABLET (FP) PO SCH (11:27)
[2022-01-07] MEDS: MULTIVIT-MINERALS ORAL LIQUID PO SCH (11:27)
[2022-01-07 12:43] LABS: HEMATOCRIT 36.3 % (32.4-45.2); HEMOGLOBIN 12.4 GM/dL (10.7-15.3); MCH 30.9 pg (25.7-33.7); MCHC 34.1 g/dl (32.0-36.0); MEAN CELL VOLUME 90.8 fl (80-96); MEAN PLT VOLUME 8.1 fl (7.5-11.1); PLATELET COUNT 352 10^3/uL (134-434); RDW 18.2 % (11.6-15.6); WHITE BLOOD COUNT 8.7 K/mm3 (4.0-10.0)
[2022-01-07 13:01] LABS: CALCIUM 8.4 mg/dL (8.5-10.1)
[2022-01-07 13:02] LABS: ALBUMIN 1.6 g/dl (3.4-5.0); BLOOD UREA NITROGEN 11.1 mg/dL (7-18)
[2022-01-07 13:05] LABS: CREATININE 0.6 mg/dL (0.55-1.3)
[2022-01-07 13:07] LABS: BILIRUBIN,TOTAL 0.4 mg/dL (0.2-1); TOT PROT 5.5 g/dl (6.4-8.2)
[2022-01-07] MEDS ORDERED: DEXTROSE 5%-WATER - 1,000 ML IV SCH (17:00)
[2022-01-07] MEDS ORDERED: DEXTROSE 5%-0.45% SALINE 1,000 ML IV SCH (18:00)
[2022-01-08] MEDS: LEVOTHYROXINE NA 75 MCG TABLET (FP) PO SCH (06:08)
[2022-01-08 10:30] LABS: BLOOD UREA NITROGEN 11.8 mg/dL (7-18); CALCIUM 7.9 mg/dL (8.5-10.1)
[2022-01-08 10:34] LABS: CREATININE 0.6 mg/dL (0.55-1.3)
[2022-01-08] MEDS: AMINO ACIDS/PROTEIN HYDROLYS 30 ML LIQUID.PKT PO SCH (10:36)
[2022-01-08] MEDS: BACITRACIN 15 GM TUBE TOPICAL OINTMENT TP SCH (11:36)
[2022-01-08] MEDS: MULTIVIT-MINERALS ORAL LIQUID PO SCH (11:36)
[2022-01-08] MEDS: APIXABAN 2.5 MG TABLET PO SCH (11:37)
[2022-01-08] MEDS: PANTOPRAZOLE 40 MG TABLET PO SCH (11:37)
[2022-01-08] MEDS: MEMANTINE HCL 5 MG TABLET (UD) PO SCH (11:37)
[2022-01-08] MEDS: metoPROLOL SUCCINATE 25 MG TAB.SR.24H (FP) PO SCH (11:37)
[2022-01-08] MEDS: ASCORBIC ACID 250 MG TABLET (FP) PO SCH (11:37)
[2022-01-08] MEDS: ZINC SULFATE 220 MG CAPSULE (FP) PO SCH (11:38)
[2022-01-08] MEDS: valACYclovir HCL 500 MG TABLET (FP) PO SCH (12:17)
[2022-01-08 12:36] VITALS: BP 109/60; PULSE 80; RESP 18; TEMP 98.1
[2022-01-08] MEDS ORDERED: DEXTROSE 5%-0.45% SALINE 990 ML with POTASSIUM CHLORIDE 20 MEQ IV SCH (13:12)
[2022-01-08] MEDS ORDERED: POTASSIUM CHLORIDE ORAL LIQUID 20 MEQ/15 ML PO ONE (13:30)
== END 2022-01-08 17:40 | DRG 871 ==
LOC: JER 12:04 → JERBED 13:58 → OBSVTOIN 23:28 → J4S 12-29 19:02
PROVIDERS: ADMIT Family Medicine; ATTEND Family Medicine
DX: A41.89 Other specified sepsis (principal); E43 Unspecified severe protein-calorie malnutrition; C90.00 Multiple myeloma not having achieved remission; N17.9 Acute kidney failure, unspecified; E87.0 Hyperosmolality and hypernatremia; N39.0 Urinary tract infection, site not specified; I24.8 Other forms of acute ischemic heart disease; L97.818 Non-pressure chronic ulcer of other part of right lower leg with other specified severity; E87.2 Acidosis; I48.20 Chronic atrial fibrillation, unspecified; E11.622 Type 2 diabetes mellitus with other skin ulcer; I10 Essential (primary) hypertension; F03.90 Unspecified dementia, unspecified severity, without behavioral disturbance, psychotic disturbance, mood disturbance, and anxiety; E03.9 Hypothyroidism, unspecified; K74.60 Unspecified cirrhosis of liver; R50.9 Fever, unspecified; K21.9 Gastro-esophageal reflux disease without esophagitis; D64.9 Anemia, unspecified; R94.5 Abnormal results of liver function studies; D72.829 Elevated white blood cell count, unspecified; B96.1 Klebsiella pneumoniae [K. pneumoniae] as the cause of diseases classified elsewhere; B96.4 Proteus (mirabilis) (morganii) as the cause of diseases classified elsewhere; R41.82 Altered mental status, unspecified; E86.0 Dehydration; E87.6 Hypokalemia; E83.42 Hypomagnesemia; L89.312 Pressure ulcer of right buttock, stage 2; L89.152 Pressure ulcer of sacral region, stage 2; L89.322 Pressure ulcer of left buttock, stage 2; Z71.89 Other specified counseling; Z85.850 Personal history of malignant neoplasm of thyroid; Z68.21 Body mass index [BMI] 21.0-21.9, adult; Z66 Do not resuscitate
CPT/HCPCS: 0241U-QW; 36415; 70450-TC; 71045-TC-FY; 72125-TC; 80048; 80053; 81003; 82550; 82553; 82803; 83605; 83735; 84100; 84439; 84443; 84484; 85025; 85027; 85610; 85730; 87040; 87086; 87186; 93005; 93010; 93971; 97161-GP; 99285-25; G0378